=== PATIENT | male | born 1975 | race Caucasian/White ===

== ENCOUNTER → 2016-09-10 | Outpatient (CLI) | payer BC ==
[~2016-09-10] MED LIST: ALTA1CAP2 PO; ASPI81TA13 PO; CLONI1TA PO; FOLI1TAB2 PO; INSUH10VL SC; INSULADS SC; METO-207 PO; METO-346 PO; METO100T PO; METO25TAB PO; NALT50TA2 PO; NEUR300C PO; NOVO70VL SC; OXAZ10CA PO; PANT40TA2 PO; PRAV1TAB39 PO; THIA100TA PO; VITA50TA PO; VITMTA PO
== END ==
LOC: M OUTALCOH 07:56
PROVIDERS: ATTEND Psychiatry & Neurology Psychiatry
DX: F10.20 Alcohol dependence, uncomplicated (principal)

== ENCOUNTER 2017-01-29 07:13 | Inpatient (IN) | payer BC ==
[~2017-01-29] VITALS: Ht 175.3 cm; Wt 85.5 kg
[~2017-01-29 07:13] MED LIST changes: -NALT50TA2 PO; +NALT50TA4 PO
[2017-01-29] MEDS ORDERED: VITA100T60 PO (07:25)
[2017-01-29] MEDS ORDERED: METO100T PO (07:25)
[2017-01-29] MEDS ORDERED: ASPI81TA21 PO (07:25)
[2017-01-29] MEDS ORDERED: CLONI1TA PO (07:25)
[2017-01-29] MEDS ORDERED: ONDANSETRON 4MG/2ML VIAL (J2405) IV ONE (08:00)
[2017-01-29] MEDS ORDERED: MORPHINE 2 MG/ML 1ML SYRINGE IV ONE (08:00)
[2017-01-29 08:09] LABS: BASO % 0.6 % (0.0-1.0); EOS % 0.2 % (0.0-3.0); LARGE UNSTAINED CELL # 0.1 K/mm3 (0.0-0.4); LYMPH # 1.1 K/mm3 (1.5-4.5); LYMPH % 14.2 % (24.0-44.0); MEAN CORPUSCULAR HEMOGLOBIN 31.4 pg (27.0-33.0); MEAN CORPUSCULAR HGB CONC 31.9 g/dl (32.0-36.5); MEAN CORPUSCULAR VOLUME 98.3 fl (80.0-96.0); MONO # 0.5 K/mm3 (0.0-0.8); NEUTROPHILS # 5.1 K/mm3 (1.8-7.7); NEUTROPHILS % 76.1 % (36.0-66.0); PLATELET COUNT, AUTOMATED 219 k/mm3 (150-450); RED CELL DISTRIBUTION WIDTH 13.3 % (11.5-14.5); WHITE BLOOD COUNT 6.7 K/mm3 (4.0-10.0)
[2017-01-29] MEDS ORDERED: NS 500 ML IV ONE (08:15)
[2017-01-29] MEDS ORDERED: MORPHINE 4 MG/ML 1ML SYRINGE IV ONE (08:45)
[2017-01-29] MEDS ORDERED: PANTOPRAZOLE 40MG INJ (PROTONIX) (C9113) IV ONE (08:45)
[2017-01-29 09:03] LABS: ALBUMIN 4.2 GM/DL (3.2-5.2); ALBUMIN/GLOBULIN RATIO 1.14 (1.00-1.93); BILIRUBIN,DIRECT 0.5 MG/DL (0.0-0.2); BILIRUBIN,TOTAL 1.1 MG/DL (0.2-1.0); CALCIUM LEVEL 9.7 MG/DL (8.5-10.1); CREATININE FOR GFR 1.5 MG/DL (0.70-1.30); GLOMERULAR FILTRATION RATE 54.9 (>60); POTASSIUM SERUM 4.2 MEQ/L (3.5-5.1); TOTAL PROTEIN 7.9 GM/DL (6.4-8.2)
[2017-01-29] MEDS ORDERED: INSULIN HUMAN REGULAR 100 UNITS in NS 99 ML IV SCH ×2 (09:58→11:00)
[2017-01-29] MEDS ORDERED: NS 1,000 ML IV ONE ×2 (10:00)
[2017-01-29] MEDS ORDERED: LANTINJ4 SC (10:17)
--- NOTE | 2017-01-29 10:33 | REP ---
Clinical: Abdominal pain. Comparison: 11/27/2015, 10/21/2012. Findings: Lung bases are clear. Diffuse fatty infiltration to the liver is noted. The pancreas demonstrates a 4.5 cm complex cystic lesion in the body which is decreased when compared to prior examinations and may represent chronic pseudocyst. No surrounding inflammatory stranding or adenopathy is identified. Spleen, gallbladder, bilateral adrenal glands and kidneys are normal. No evidence for nephroureterolithiasis or hydroureteronephrosis. The enteric system is without obstruction or acute inflammatory process and a normal terminal ileum and appendix are identified in the right lower quadrant. The patient is status post hysterectomy. Pelvis demonstrates normal bladder. No free fluid/ascites. No free air. No adenopathy. Abdominal aorta without aneurysm. Musculoskeletal structures demonstrate age-related changes without focal osseous abnormality. Impression: 1. Diffuse fatty infiltration to the liver. 2. 4.5 cm complex cystic lesion in the body of the pancreas is slowly decreasing in size when compared to prior examinations dated 2012 and 2015. Finding likely represents a slowly progressing pseudocyst. Regular followed by ultrasound may be warranted. Signed by Hiram Lyons MD 01/29/2017 10:24 A
[2017-01-29 10:44] LABS: ABG BASE EXCESS -20.5 (-2.0-2.0); ABG HCO3 4.2 MEQ/L (22.0-26.0); ABG PARTIAL PRESSURE O2 171.7 mmHg (75.0-100.0); ABG STANDARD HCO3 10.3 MEQ/L (22.0-26.0); ABG TOTAL CO2 4.5 MEQ/L (22.0-29.0)
[2017-01-29 10:45] LABS: ABG pH (ARTERIAL) 7.209 UNITS (7.350-7.450)
[2017-01-29 10:46] LABS: ABG PARTIAL PRESSURE CO2 10.8 mmHg (35.0-45.0)
[2017-01-29] MEDS: INSULIN HUMAN REGULAR 100 UNITS in NS 99 ML IV SCH ×2 (11:03→14:13)
[2017-01-29] MEDS ORDERED: NS 1,000 ML IV SCH (11:39)
[2017-01-29] MEDS ORDERED: LORazepam 2 MG/ML VIAL (J2060) IV PRN (11:45)
[2017-01-29] MEDS: INSULIN IV RATE CHANGE DOCUMENTATION ML/HR XX SCH ×5 (12:05→21:46)
--- NOTE | 2017-01-29 12:18 | HPE ---
DATE OF ADMISSION: 01/29/2017 PRIMARY CARE PROVIDER: Dr. Reyes in [place] OVEN HEATER: In [place] MEDICAL CASH POSTER: Dr. Justa Maurer CHIEF COMPLAINT: Abdominal pain, nausea, vomiting. HISTORY OF PRESENT ILLNESS: 41-year-old gentleman with known history of type 1 diabetes, previous history of pancreatitis and pancreatic pseudocyst who presents to the emergency department after having 24-48 hours of increasing nausea, vomiting, abdominal pain and distention. He states that he does drink quite a bit of alcohol. He switched from drinking beer to more liquor, which he was unable to quantify for me, but he states that he does realize that he needs to stop drinking. He has had issues with alcohol withdrawal in the past and did question if we would be able to treat him for this as well. He was seen through the emergency department and noted to have some acute kidney and anion gap metabolic acidosis likely related to diabetic ketoacidosis (DKA) with hyperglycemia. He has a slightly low sodium; however, this is most likely related to his degree of hyperglycemia. No coma was related. CT scan of the abdomen and pelvis was negative for pancreatitis as well as a normal lipase. THE hospitalist was called and requested see the patient for admission and the patient has already been started on insulin drip. PAST MEDICAL HISTORY: 1. Type 1 diabetes. 2. Dyslipidemia. 3. Hypertension. 4. Alcoholism 5. Alcohol related pancreatitis. PAST SURGICAL HISTORY: 1. Orthopedic surgery. 2. Vasectomy in the past. FAMILY HISTORY: Noncontributory. SOCIAL HISTORY: The patient drinks quite a bit of hard liquor, was able to unable to quantify for me. He does smoke about a pack a day. He lives at home with his . No recent travel. No sick contacts. ALLERGIES: No known drug allergies. CURRENT MEDICATIONS (home medications): - NovoLog insulin - Lantus, will check with his pharmacy regarding his current dose - pantoprazole 40 mg daily - folic acid 1 mg daily - clonidine 0.1 mg for blood pressure - Ramipril 2.5 mg daily - metoprolol 100 mg daily - multivitamin once daily - pravastatin 20 mg daily - naltrexone 50 mg daily - thiamine 100 mg daily - aspirin 81 mg daily REVIEW OF SYSTEMS: Constitutional: He has had some nausea, vomiting, abdominal pain and decreased appetite. HEENT: Denies headache, lightheaded, dizziness, blurry vision, double vision, or tinnitus. No difficulty with speech or swallow. Pulmonary: Denies productive sputum, cough or hemoptysis. Cardiovascular: He denies chest pain, palpitations, paroxysmal nocturnal dyspnea (PND), orthopnea or lower extremity edema. Gastrointestinal (GI): Positive for nausea and vomiting. He denies any diarrhea. No hematochezia. No melena. He does have a history of pseudocyst and recurrent history of pancreatitis, likely related to alcoholism. Musculoskeletal: He denies bone loss or joint pain, swelling or erythema. Neurologic: No paresthesias or paralysis. No loss of consciousness. Endocrine: Positive for diabetes. Negative for thyroid disorder. Lymphatics: No lumps, bumps or swelling in neck, axilla or groin. No night sweats. No weight loss. Hematology: Negative for bleeding or bruising disorder. No prior history of venous thromboembolism. Oncology: Negative for cancer. Psychiatric: No history of depression. No suicidal ideation. No audiovisual hallucinations. Skin: No bleeding or bruising. No skin lesions. Substances: He does have a history of tobacco use and alcoholism as indicated above. He denies any illicit substances. 10-point review of systems complete, pertinent positives are listed. PHYSICAL EXAMINATION: Temperature is 98.8, pulse 110 and regular, respiratory rate is 18 nonlabored, blood pressure (BP) is 142/83, SPO2 is 99% on room air. General: The patient appears to be in no acute distress. He is alert and oriented. HEENT: Unremarkable. Lungs: Clear. Heart: Regular rate and rhythm. Abdomen: Diffuse abdominal tenderness. No rebound. Positive bowel sounds which were normoactive. Extremities: No edema. No calf tenderness. LABORATORY DATA: White count 6.7, hemoglobin is 16.9 and platelets 219,000. Sodium 132, potassium 4.2, chloride 90, bicarb 7, anion gap 35, BUN 18, creatinine 1.50, glucose is 385, total bilirubin 1.1, direct bilirubin is 0.5, AST 91, ALT 123, alkaline phosphatase 186, albumin 4.2. IMPRESSION: Mr. Hess is a 41-year-old gentleman who presents to the emergency department with abdominal pain, elevated blood glucose and appears to be in diabetic ketoacidosis. He does have an underlying history of pancreatitis and alcohol abuse as well as tobacco use. He will need to be admitted due to his anion gap metabolic acidosis and started on fluid resuscitation as well as insulin drip. PROBLEM LIST: 1. Diabetic ketoacidosis. 2. Type 1 diabetes. 3. Anion gap metabolic acidosis. 4. Mild acute kidney injury. 5. Hyponatremia related to elevated blood glucose. 6. Alcohol abuse. 7. Tobacco use. 8. History of pancreatic pseudocyst which he follows in [place] for. PLAN: The patient is admitted to the intensive care unit (ICU) on insulin drip and fluid resuscitation as indicated above. He is nothing by mouth (n.p.o.) currently. He is okay for ice chips and sips of water. Will progress his diet as tolerated. I did hold his pravastatin. Morphine for pain. Resume his Lantus once his anion gap is closed. Will hold his Ramipril for right now and avoid nephrotoxic drugs until his renal function is improved. This is most likely related to his level of dehydration. DISPOSITION: Will see how he does overnight. Anticipate that he will be here likely over two midnights and he meets inpatient criteria.
[2017-01-29] MEDS ORDERED: MULTIVITAMIN -ADULT INJECTION 10 ML, THIAMINE INJection 100 MG, FOLIC ACID 1 MG in NS 1... IV ONE (12:30)
[2017-01-29] MEDS: MORPHINE 4 MG/ML 1ML SYRINGE IV PRN ×3 (12:36→20:17)
[2017-01-29 12:59] LABS: ANION GAP 27 MEQ/L (8-16); BLOOD UREA NITROGEN 18 MG/DL (7-18); CARBON DIOXIDE LEVEL 7 MEQ/L (21-32); CHLORIDE LEVEL 103 MEQ/L (98-107); CREATININE FOR GFR 1.38 MG/DL (0.70-1.30); GLOMERULAR FILTRATION RATE > 60.0 (>60); GLUCOSE, FASTING 266 MG/DL (70-105); MAGNESIUM LEVEL 2.2 MG/DL (1.8-2.4); POTASSIUM SERUM 3.9 MEQ/L (3.5-5.1); SODIUM LEVEL 137 MEQ/L (136-145)
[2017-01-29 13:14] LABS: CALCIUM LEVEL 8.2 MG/DL (8.5-10.1)
[2017-01-29 14:00] VITALS: BP 121/59
[2017-01-29] MEDS: NICOTINE 14 MG/24 HR TRANSDERMAL TD SCH (14:11)
[2017-01-29] MEDS: cloNIDine 0.1 MG TAB PO SCH (14:11)
[2017-01-29] MEDS: OXAZEPAM 15 MG CAP PO SCH ×3 (14:12→23:58)
[2017-01-29] MEDS: METOPROLOL TART 50 MG TAB PO SCH ×2 (14:12→20:16)
[2017-01-29] MEDS: ASPIRIN 81 MG ENTERIC TAB PO SCH (14:12)
[2017-01-29 14:35] LABS: ANION GAP 21 MEQ/L (8-16); BLOOD UREA NITROGEN 18 MG/DL (7-18); CALCIUM LEVEL 8.5 MG/DL (8.5-10.1); CARBON DIOXIDE LEVEL 13 MEQ/L (21-32); CHLORIDE LEVEL 104 MEQ/L (98-107); CREATININE FOR GFR 1.37 MG/DL (0.70-1.30); GLOMERULAR FILTRATION RATE > 60.0 (>60); GLUCOSE, FASTING 200 MG/DL (70-105); POTASSIUM SERUM 4.1 MEQ/L (3.5-5.1); SODIUM LEVEL 138 MEQ/L (136-145)
[2017-01-29] MEDS ORDERED: D5W/0.9% SODIUM CHLORIDE 1,000 ML IV SCH (15:00)
[2017-01-29 16:22] LABS: ANION GAP 20 MEQ/L (8-16); BLOOD UREA NITROGEN 20 MG/DL (7-18); CARBON DIOXIDE LEVEL 14 MEQ/L (21-32); CHLORIDE LEVEL 104 MEQ/L (98-107); CREATININE FOR GFR 1.36 MG/DL (0.70-1.30); GLOMERULAR FILTRATION RATE > 60.0 (>60); GLUCOSE, FASTING 199 MG/DL (70-105); SODIUM LEVEL 138 MEQ/L (136-145)
[2017-01-29 18:16] LABS: ANION GAP 14 MEQ/L (8-16); BLOOD UREA NITROGEN 18 MG/DL (7-18); CALCIUM LEVEL 8.2 MG/DL (8.5-10.1); CARBON DIOXIDE LEVEL 19 MEQ/L (21-32); CHLORIDE LEVEL 104 MEQ/L (98-107); CREATININE FOR GFR 1.38 MG/DL (0.70-1.30); GLOMERULAR FILTRATION RATE > 60.0 (>60); GLUCOSE, FASTING 209 MG/DL (70-105); POTASSIUM SERUM 4.2 MEQ/L (3.5-5.1); SODIUM LEVEL 137 MEQ/L (136-145)
[2017-01-29 19:33] LABS: CALCIUM LEVEL 7.6 MG/DL (8.5-10.1); CREATININE FOR GFR 1.39 MG/DL (0.70-1.30); GLOMERULAR FILTRATION RATE 59.9 (>60); POTASSIUM SERUM 4.2 MEQ/L (3.5-5.1)
[2017-01-29 20:00] VITALS: BP 101/63
[2017-01-29] MEDS ORDERED: LEVEMIR (INSULIN DETEMIR) 1 UNITS/0.01ML SC ONE (20:00)
[2017-01-29] MEDS: NS 1,000 ML IV SCH (20:16)
[2017-01-29 22:00] VITALS: BP 116/68
[2017-01-29 22:27] LABS: CALCIUM LEVEL 7.6 MG/DL (8.5-10.1); CREATININE FOR GFR 1.39 MG/DL (0.70-1.30); GLOMERULAR FILTRATION RATE 59.9 (>60)
[2017-01-29] MEDS ORDERED: DEXTROSE 50% 50 ML SYRINGE IV PRN (23:15)
[2017-01-29] MEDS ORDERED: GLUCOSE 4 GM CHEW TABLET PO PRN (23:15)
[2017-01-29] MEDS ORDERED: GLUCAGON FOR INJ 1 MG VIAL (J1610) SC PRN (23:15)
[2017-01-30] VITALS: BP 99/61
[2017-01-30 02:00] VITALS: BP 107/69
[2017-01-30 04:00] VITALS: BP 127/67
[2017-01-30 04:57] LABS: MEAN CORPUSCULAR HEMOGLOBIN 30.6 pg (27.0-33.0); MEAN CORPUSCULAR HGB CONC 31.7 g/dl (32.0-36.5); MEAN CORPUSCULAR VOLUME 96.5 fl (80.0-96.0); RED CELL DISTRIBUTION WIDTH 13.6 % (11.5-14.5); WHITE BLOOD COUNT 4.3 K/mm3 (4.0-10.0)
[2017-01-30 05:14] LABS: ANION GAP 10 MEQ/L (8-16); BLOOD UREA NITROGEN 18 MG/DL (7-18); CALCIUM LEVEL 7.7 MG/DL (8.5-10.1); CARBON DIOXIDE LEVEL 20 MEQ/L (21-32); CHLORIDE LEVEL 108 MEQ/L (98-107); CREATININE FOR GFR 1.07 MG/DL (0.70-1.30); GLOMERULAR FILTRATION RATE > 60.0 (>60); GLUCOSE, FASTING 236 MG/DL (70-105); POTASSIUM SERUM 3.7 MEQ/L (3.5-5.1); SODIUM LEVEL 138 MEQ/L (136-145)
[2017-01-30] MEDS: OXAZEPAM 15 MG CAP PO SCH (05:19)
[2017-01-30 06:00] VITALS: BP 105/59
[2017-01-30] MEDS ORDERED: HumaLOG INSULIN (NovoLOG) PER UNIT SC SCH ×2 (07:30→21:00)
[2017-01-30] MEDS: NS 1,000 ML IV SCH (07:45)
[2017-01-30] MEDS ORDERED: NICO14PA TD (08:22)
[2017-01-30] MEDS ORDERED: OXAZ15CA PO (08:28)
[2017-01-30 09:00] VITALS: BP_SYST 106; BP_SYST 160; BP_DIAS 65
[2017-01-30] MEDS ORDERED: PANTOPRAZOLE 40MG TAB (PROTONIX) PO SCH (09:00)
[2017-01-30] MEDS: cloNIDine 0.1 MG TAB PO SCH (09:00)
[2017-01-30] MEDS ORDERED: MULTIVITAMINS/MINERALS THERAP 1 TAB PO SCH (09:00)
[2017-01-30] MEDS ORDERED: THIAMINE 100 MG TAB PO SCH (09:00)
[2017-01-30] MEDS ORDERED: FOLIC ACID 1 MG TAB PO SCH (09:00)
[2017-01-30] MEDS ORDERED: ENOXAPARIN 40 MG/0.4 ML SYRINGE (J1650) SC SCH (09:00)
[2017-01-30] MEDS: NICOTINE 14 MG/24 HR TRANSDERMAL TD SCH (09:00)
[2017-01-30] MEDS: METOPROLOL TART 50 MG TAB PO SCH (09:00)
[2017-01-30] MEDS: ASPIRIN 81 MG ENTERIC TAB PO SCH (09:02)
--- NOTE | 2017-01-30 14:37 | DSES ---
DATE OF ADMISSION: 01/30/2016 DATE OF DISCHARGE: 01/30/2017 DISCHARGE DIAGNOSES: 1. Diabetic ketoacidosis (DKA). 2. Acute abdominal pain related to DKA. 3. Alcohol abuse. 4. Type 1 diabetes. 5. Hypertension. 6. Prior history of alcohol-related pancreatitis time, not seen on this admission. 7. Tobacco use. Encourage smoking cessation and counseling provided. BRIEF HOSPITAL COURSE: Mr. Hess is a 41-year-old gentleman who presents to the emergency department with abdominal pain, nausea, vomiting for approximately 24-48 hours yesterday. He is having difficulty maintaining good oral intake, was noted to have an elevated anion gap and started on insulin drip. CT scan was unremarkable for pancreatitis. He does have a known history of pseudocyst, which he follows in [place] for. Otherwise no acute findings. He is admitted to the ICU, started on insulin drip; did progress well. Was able to tolerate meals and he had been weaned off of the insulin drip through the night last night. Again, tolerating meals. Fingersticks are much improved. He did not have any withdrawal symptoms. However, he will need to be discharged on appropriate medications, some short-term Serax and followup with his primary care provider as soon as possible this coming week. Further information regarding intake, physical, labs, diagnostics please refer to the H P. PHYSICAL EXAMINATION: Temperature is 94, pulse 77, respiratory rate 20, BP 160/65, SPO2 is 95% on room air. General: The patient appears to be in no acute distress. Is alert, oriented. HEENT: Unremarkable. Lungs: Clear. Heart: Regular rhythm. Normal S1-S2. Abdomen: Soft, nontender. Positive bowel sounds. No masses or rebound. Extremities: No edema. No calf tenderness. LABORATORY DATA: White count is 4.3, hemoglobin 13, platelets 152,000. Sodium 138, potassium 3.7, chloride 108, bicarb 20, anion gap 10, BUN is 10, creatinine 1.5 DISCHARGE CONDITION: Good. DISPOSITION: Discharge to home on appropriate medications as outlined above and appropriate followup. DISCHARGE MEDICATIONS: - Nicoderm patch, 14 mg patch daily - Serax 15 mg every 6 hours as needed #20, maximum daily dose is 4 and encouraged to abstain from alcohol - aspirin 81 mg daily - Catapres 0.1 mg daily - folic acid 1 mg daily - NovoLog sliding scale as directed - Garethtus KennedyoStar 52 units at bedtime - metoprolol tartrate 50 mg twice a day - multivitamin daily - pantoprazole 40 mg daily - pravastatin 20 mg daily - Ramipril 2.5 mg daily - thiamine 100 mg daily DISCHARGE INSTRUCTIONS: Discharged to home. Followup with Dr. Reyes's office next week. Activity as tolerated. Consistent carbohydrate diet. Avoid alcohol, avoid tobacco and should seek medical attention if condition worsens. He voices understanding. Discharge took 35 minutes.
== END 2017-01-30 09:50 | disposition home or self-care (01) | DRG 420 ==
LOC: M ED 09:10 → M ED INP 11:39 → M ICU 13:50
PROVIDERS: ADMIT Hospitalist; ATTEND Hospitalist
DX: E10.10 Type 1 diabetes mellitus with ketoacidosis without coma (principal); N17.9 Acute kidney failure, unspecified; K86.3 Pseudocyst of pancreas; E78.5 Hyperlipidemia, unspecified; E87.1 Hypo-osmolality and hyponatremia; I10 Essential (primary) hypertension; F10.20 Alcohol dependence, uncomplicated; F17.210 Nicotine dependence, cigarettes, uncomplicated; Z79.4 Long term (current) use of insulin; Z79.82 Long term (current) use of aspirin; Z79.899 Other long term (current) drug therapy

== ENCOUNTER 2017-02-22 15:49 | Inpatient (IN) | payer BC ==
[~2017-02-22] VITALS: Ht 175.3 cm; Wt 85.3 kg
[~2017-02-22 15:49] MED LIST changes: +ASPI81TA21 PO; +LANTINJ4 SC; +NICO14PA TD; +OXAZ15CA PO; +VITA100T60 PO
[2017-02-22] MEDS ORDERED: NS 1,000 ML IV ONE (17:30)
[2017-02-22] MEDS ORDERED: ONDANSETRON 4MG/2ML VIAL (J2405) IV ONE (17:30)
[2017-02-22 17:52] LABS: BASO % 0.6 % (0.0-1.0); EOS % 0.1 % (0.0-3.0); LARGE UNSTAINED CELL # 0.3 K/mm3 (0.0-0.4); LARGE UNSTAINED CELL % 3.1 % (0.0-4.0); LYMPH # 1.5 K/mm3 (1.5-4.5); MEAN CORPUSCULAR HEMOGLOBIN 31.9 pg (27.0-33.0); MEAN CORPUSCULAR HGB CONC 32.6 g/dl (32.0-36.5); MONO # 0.7 K/mm3 (0.0-0.8); MONO % 8.1 % (0.0-5.0); NEUTROPHILS # 5.9 K/mm3 (1.8-7.7); NEUTROPHILS % 73.1 % (36.0-66.0); PLATELET COUNT, AUTOMATED 160 k/mm3 (150-450); WHITE BLOOD COUNT 8.1 K/mm3 (4.0-10.0)
[2017-02-22 17:53] LABS: INR 0.98
[2017-02-22 17:54] LABS: ABG BASE EXCESS -20.8 (-2.0-2.0); ABG HCO3 3.8 MEQ/L (22.0-26.0); ABG PARTIAL PRESSURE O2 144.4 mmHg (75.0-100.0); ABG STANDARD HCO3 10.2 MEQ/L (22.0-26.0); ABG TOTAL CO2 4.1 MEQ/L (22.0-29.0)
[2017-02-22 18:02] LABS: ABG PARTIAL PRESSURE CO2 9.9 mmHg (35.0-45.0); ABG pH (ARTERIAL) 7.204 UNITS (7.350-7.450)
[2017-02-22 18:03] LABS: ALBUMIN/GLOBULIN RATIO 0.93 (1.00-1.93); ALKALINE PHOSPHATASE 192 U/L (45-117); ALT/SGPT 79 U/L (12-78); ANION GAP 29 MEQ/L (8-16); AST/SGOT 90 U/L (15-37); BILIRUBIN,DIRECT 0.3 MG/DL (0.0-0.2); BILIRUBIN,TOTAL 1.1 MG/DL (0.2-1.0); BLOOD UREA NITROGEN 14 MG/DL (7-18); CALCIUM LEVEL 9.2 MG/DL (8.5-10.1); CARBON DIOXIDE LEVEL 7 MEQ/L (21-32); CHLORIDE LEVEL 89 MEQ/L (98-107); GLOMERULAR FILTRATION RATE 54.9 (>60); GLUCOSE, FASTING 326 MG/DL (70-105); SODIUM LEVEL 125 MEQ/L (136-145); TOTAL PROTEIN 8.3 GM/DL (6.4-8.2)
[2017-02-22 18:28] LABS: METHADONE URINE NEGATIVE (NEGATIVE)
[2017-02-22] MEDS ORDERED: HumaLOG INSULIN (NovoLOG) PER UNIT IV STA (18:34)
[2017-02-22] MEDS ORDERED: MULTIVITAMIN -ADULT INJECTION 10 ML, THIAMINE INJection 100 MG, FOLIC ACID 1 MG in NS 1... IV ONE (18:45)
[2017-02-22] MEDS ORDERED: INSULIN IV RATE CHANGE DOCUMENTATION ML/HR XX SCH ×2 (18:45→20:15)
[2017-02-22] MEDS ORDERED: MORPHINE 2 MG/ML 1ML SYRINGE IV ONE (18:45)
[2017-02-22] MEDS ORDERED: OXAZEPAM 15 MG CAP PO ONE (18:45)
[2017-02-22] MEDS ORDERED: KCL 40MEQ in NS 1000ML 1,000 ML IV SCH (19:00)
[2017-02-22] MEDS ORDERED: INSULIN HUMAN REGULAR 100 UNITS in NS 99 ML IV SCH ×3 (19:00→21:19)
[2017-02-22] MEDS ORDERED: OXAZ15CA PO (19:01)
--- NOTE | 2017-02-22 20:00 | REPUSA ---
CLINICAL HISTORY: Abdominal pain N/V. TECHNIQUE: Multiple axial CT images were obtained through the abdomen and pelvis without administrat ion of oral or IV contrast material. COMPARISON: Made with the prior study dated 01/29/2017. Overall there is no significant interval ch jailene. COMMENTS: Liver is enlarged with diffuse hepatic hypoattenuation compatible with fatty infiltration. There is no intra or extrahepatic biliary ductal dilatation. The spleen is normal. The gallbladder is within normal limits. There is evidence of a 4 x 3 cm low density lesion in the region of pancreatic body. Differential includes pancreatic pseudocyst as well as cystic neoplasm. The rest of the pancreas a ppears atrophic. Several calcifications are noted in the uncinate process of the pancreas. Small hi atal hernia is seen. There is no evidence of adrenal mass. The kidneys are normal in size, shape and configuration. No renal or ureteral calculi are identified . There is no hydroureter or hydronephrosis. There is no evidence for appendicitis. There is no bowel wall thickening. No evidence for small or large bowel obstruction. There is no evidence of abdominal ascites or lymphadenopathy. There is no evidence of intrinsic or extrinsic bladder mass. There is no pelvic ascites or lymphaden opathy. Prostate gland is unremarkable. Images of the lung bases show no evidence of pleural or parenchymal mass. There are no pleural effus ions. The bony structures are free of lytic or blastic lesions. IMPRESSION: 1. Fatty liver. 2. 4 x 3 cm low density lesion in the region of pancreatic body. Differential includes pancreatic p seudocyst as well as cystic neoplasm. The rest of the pancreas appears atrophic. Several calcificat ions are noted in the uncinate process of the pancreas. 3. Small hiatal hernia is seen. 4. No significant interval change. Thank you for your kind referral of this patient. We appreciate the opportunity to participate in thi s patient's care.
[2017-02-22] MEDS ORDERED: NS 1,000 ML IV SCH (20:05)
--- NOTE | 2017-02-22 20:39 | HPEPDOC ---
General Date of Admission 02/22/17 Other Providers PCP: Dr. Reyes Attending Physician: MARSHA HANSEN MD Chief Complaint The patient is a 41-year-old male admitted with a reason for visit of Naus/Vom. History of Present Illness 41-year-old male with past medical history of type 1 diabetes mellitus, dyslipidemia, hypertension, alcohol use presents to the ER with chief complaint of elevated blood sugars and abdominal pain over the last 48 hours. Of note, the patient was admitted for similar symptoms here [facility] just last month. The patient states that he has been feeling sick with complaints of nausea and vomiting during this time. Of note, the patient states that his last alcoholic drink was Thursday night into Thursday morning. Since then, the patient states that he has tried to stop drinking and has been taking Serax. However, the patient states that he has not been able to keep food down and his blood sugar level has been elevated in the 400 to 500s. He states that he has been adherent to his insulin regimen therapy which includes an average of 10 units of NovoLog 3 times a day with meals and 52 units of Lantus at night. He denies any complaints of fevers, chills, chest pain, palpitations, cough, or any sick contacts, recent travel, or diarrhea. In the ER, patient was noted to be in diabetic ketoacidosis. The patient will be admitted under the hospitalist service for further evaluation and management. Home Medications Scheduled Aspirin (Aspir-Low) 81 Mg Tab, 81 MG PO DAILY, (Reported) Clonidine Hcl (Catapres) 0.1 Mg Tab, 0.1 MG PO DAILY, (Reported) Folic Acid (Folic Acid) 1 Mg Tab, 1 MG PO DAILY, (Reported) Insulin Aspart (Novolog) 100 U/Ml Inj, 1 DOSE SC AC, (Reported) PER SLIDING SCALE Insulin Glargine (Lantus Solostar) 100 Unit/Ml Inj, 52 UNITS SC QHS, (Reported) Metoprolol Tartrate (Metoprolol Tartrate) 100 Mg Tab, 50 MG PO BID, (Reported) Multivitamins *[facility] STOCKED* (Thera M Plus *[facility] STOCKED*) 1 Tab Tab, 1 TAB PO DAILY, (Reported) Pantoprazole Sodium (Pantoprazole Sodium) 40 Mg Tab, 40 MG PO DAILY, (Reported) Pravastatin Sodium (Pravachol) 20 Mg Tab, 20 MG PO DAILY, (Reported) Ramipril (Altace) 2.5 Mg Cap, 2.5 MG PO DAILY, (Reported) Thiamine HCl (Vitamin B1) 100 Mg Tab, 100 MG PO DAILY, (Reported) Scheduled PRN Oxazepam (Oxazepam) 15 Mg Cap, 15 MG PO Q6H PRN for ANXIETY/AGITATION, (Reported ) Allergies Coded Allergies: No Known Drug Allergy (Verified Allergy, Unknown, 12/09/12) Past Medical History Medical History As noted in HPI. Surgical History Vasectomy in the past Family History Significant Family History: No pertinent family hx Social History * Smoker: greater than 1 pack/day Alcohol: other (patient states that he drinks about a pint of hard liquor daily for the past 20+ years, however has not drank an alcoholic beverage in the last 36-48 hours.) Drugs: denies Review of Symptoms Other systems 10 point review systems negative unless otherwise specified in HPI. Physical Examination General Exam: Positive: Alert, Cooperative, No Acute Distress ENT Exam: Positive: Atraumatic, Other ENT (dry mucous membranes) Neck Exam: Negative: JVD Chest Exam: Positive: Clear to auscultation, Normal air movement Heart Exam: Positive: Tachycardic, Normal S1, Normal S2 Telemetry: Positive: Sinus Abdomen Exam: Positive: Soft, Negative: Tenderness Extremity Exam: Negative: Tenderness, Swelling Psych Exam: Positive: Oriented x 3 Vital Signs Vital Signs Date Time Temp Pulse Resp B/P (MAP) Pulse Ox O2 Delivery O2 Flow Rate FiO2 02/22/17 19:54 122 169/99 (122) 98 02/22/17 19:46 18 02/22/17 15:50 98.7 Room Air Laboratory Data Labs 24H Laboratory Tests 2 02/22/17 16:25: White Blood Count 8.1, Red Blood Count 5.18, Hemoglobin 16.5, Hematocrit 50.7, Mean Corpuscular Volume 98.0H, Mean Corpuscular Hemoglobin 31.9, Mean Corpuscular Hemoglobin Concent 32.6, Red Cell Distribution Width 14.0, Platelet Count 160, Neutrophils (%) (Auto) 73.1H, Lymphocytes (%) (Auto) 15.0L, Monocytes (%) (Auto) 8.1H, Eosinophils (%) (Auto) 0.1, Basophils (%) (Auto) 0.6 , Neutrophils # (Auto) 5.9, Lymphocytes # (Auto) 1.5, Monocytes # (Auto) 0.7, Eosinophils # (Auto) 0.0, Basophils # (Auto) 0.0, Large Unclassified Cells % 3.1 , Large Unclassified Cells # 0.3, Prothrombin Time 13.1, Prothromb Time International Ratio 0.98, Activated Partial Thromboplast Time 25.5L, Anion Gap 29H, Glomerular Filtration Rate 54.9L, Estimated Mean Plasma Glucose 260H, Hemoglobin A1c 10.7H, Lactic Acid Level 1.6, Calcium Level 9.2, Aspartate Amino Transf (AST/SGOT) 90H, Alanine Aminotransferase (ALT/SGPT) 79H, Alkaline Phosphatase 192H, Total Bilirubin 1.1H, Direct Bilirubin 0.3H, Total Creatine Kinase 74, Creatine Kinase MB 1.7, Creatine Kinase MB Relative Index 2.29, Troponin I < 0.02, Total Protein 8.3H, Albumin 4.0, Albumin/Globulin Ratio 0.93L , Lipase 73, Ethyl Alcohol Level < 0.003 02/22/17 17:44: Blood Gas Bicarbonate Standard 10.2L, Arterial Blood pH 7.204*L, Arterial Blood Partial Pressure CO2 9.9*L, Arterial Blood Partial Pressure O2 144.4H, Arterial Blood Total CO2 4.1L, Arterial Blood HCO3 3.8L, Arterial Blood Base Excess - 20.8L, Arterial Blood Oxygen Saturation 98.7 02/22/17 17:50: Urine Appearance CLEAR, Urine Color YELLOW, Urine pH 5.0, Urine Specific [place] 1.020, Urine Protein 2+H, Urine Glucose (UA) 3+H, Urine Ketones 2+H, Urine Urobilinogen 0.2, Urine Bilirubin NEGATIVE, Urine Leukocyte Esterase NEGATIVE, Urine Blood 1+H, Urine Nitrite NEGATIVE, Urine WBC (Auto) 1, Urine RBC (Auto) 3, Urine Hyaline Casts (Auto) 5, Urine Bacteria (Auto) NEGATIVE, Urine Squamous Epithelial Cells 0, Urine Mucus (Auto) SMALL, Urine Sperm (Auto) , Urine Amphetamines Screen NEGATIVE, Urine Benzodiazepines Screen NEGATIVE, Urine Opiates Screen NEGATIVE, Urine Methadone Screen NEGATIVE, Urine Barbiturates Screen NEGATIVE, Urine Phencyclidine Screen NEGATIVE, Urine Cocaine Metabolite Screen NEGATIVE, Urine Cannabinoids Screen NEGATIVE CBC/BMP Laboratory Tests 02/22/17 16:25 Red Blood Count 5.18, Mean Corpuscular Volume 98.0 H, Mean Corpuscular Hemoglobin 31.9, Mean Corpuscular Hemoglobin Concent 32.6, Red Cell Distribution Width 14.0, Neutrophils (%) (Auto) 73.1 H, Lymphocytes (%) (Auto) 15.0 L, Monocytes (%) (Auto) 8.1 H, Eosinophils (%) (Auto) 0.1, Basophils (%) ( Auto) 0.6, Neutrophils # (Auto) 5.9, Lymphocytes # (Auto) 1.5, Monocytes # (Auto ) 0.7, Eosinophils # (Auto) 0.0, Basophils # (Auto) 0.0 Microbiology Microbiology 02/22/17 Blood Culture, Received Pending Plan / VTE VTE Prophylaxis Ordered?: Yes Plan Plan Diabetic ketoacidosis Possibly precipitated by alcohol withdrawal symptoms over the last 36-48 hours Patient states that he has been adherent to his insulin therapy Initial anion gap noted to be 29, initial blood glucose level 326 We will start the patient on an insulin drip as per ICU protocol IV fluid hydration Every hour fingersticks Every 2 hour BMPs We will continue to transition the patient back to subcutaneous insulin once his anion gap closes, and he is able to tolerate a by mouth diet Acute kidney injury 2/2 intravascular volume due to above Serum creatinine noted to be 1.5 (baseline creatinine closer to 1.0) Hyponatremia Serum sodium level initially 125 As is likely a combination of pseudohyponatremia from hyperglycemia, and hypovolemia secondary to intravascular volume depletion We will continue to hydrate the patient IV fluids Serial BMPs Anion gap Metabolic acidosis secondary to underlying DKA ABG notable for a pH of 7.20 We will continue to follow the DKA protocol in an effort to metabolically stabilize the patient We will repeat an ABG Alcohol abuse Patient states that his last alcoholic beverage was 36-48 hours ago Patient counseled on the hazards of alcohol abuse We will continue the patient on Serax for now with withdrawal precautions Hypertension Will withhold the patient's antihypertensives at this time Dyslipidemia The patient may continue his statin once he is transitioned to a by mouth diet History of pancreatic pseudocyst Follows up in [place] for monitoring of this GERD Continue IV PPI DVT prophylaxis Heparin subcutaneous The patient will be admitted under the service of Dr. Hansen, who will begin to follow the patient on 02/23/17 at 7 AM. MALCOLM BOUDREAUX MD Feb 22, 2017 20:39
[2017-02-22 21:26] LABS: CALCIUM LEVEL 8.4 MG/DL (8.5-10.1); CREATININE FOR GFR 1.46 MG/DL (0.70-1.30); GLOMERULAR FILTRATION RATE 56.6 (>60); POTASSIUM SERUM 3.8 MEQ/L (3.5-5.1)
[2017-02-22] MEDS: POTASSIUM CHLORIDE 10 MEQ SR TABLET PO ONE ×2 (22:00→22:58)
[2017-02-22 22:30] VITALS: BP 147/84
[2017-02-22] MEDS: MORPHINE 2 MG/ML 1ML SYRINGE IV PRN (22:56)
[2017-02-22 22:57] LABS: ANION GAP 25 MEQ/L (8-16); BLOOD UREA NITROGEN 12 MG/DL (7-18); CARBON DIOXIDE LEVEL 8 MEQ/L (21-32); CHLORIDE LEVEL 100 MEQ/L (98-107); CREATININE FOR GFR 1.29 MG/DL (0.70-1.30); GLOMERULAR FILTRATION RATE > 60.0 (>60); GLUCOSE, FASTING 195 MG/DL (70-105); POTASSIUM SERUM 4.3 MEQ/L (3.5-5.1); SODIUM LEVEL 133 MEQ/L (136-145)
[2017-02-22] MEDS: OXAZEPAM 15 MG CAP PO SCH (22:57)
[2017-02-22 22:58] VITALS: BP 152/96
[2017-02-22] MEDS: HEPARIN SOD (PORCINE) 5000 UNITS/ML VIAL SC SCH (22:59)
[2017-02-22] MEDS: D5W/0.45% SODIUM CHLORIDE 1,000 ML IV SCH (23:07)
[2017-02-22] MEDS: INSULIN IV RATE CHANGE DOCUMENTATION ML/HR XX SCH (23:23)
[2017-02-22] MEDS ORDERED: PANTOPRAZOLE 40MG INJ (PROTONIX) (C9113) IV ONE (23:30)
[2017-02-22] MEDS ORDERED: ONDANSETRON 4MG/2ML VIAL (J2405) IV PRN (23:30)
[2017-02-22] MEDS: CALCIUM CARBONATE 500 MG CHEW U/D PO PRN (23:54)
[2017-02-22] MEDS: NICOTINE 21MG/24HR 1 EA TRANSDERMAL TD SCH (23:56)
[2017-02-23] VITALS (11 sets, daily range): BP systolic 111–151; BP diastolic 67–94
[2017-02-23 00:49] LABS: ANION GAP 21 MEQ/L (8-16); BLOOD UREA NITROGEN 12 MG/DL (7-18); CALCIUM LEVEL 8.3 MG/DL (8.5-10.1); CARBON DIOXIDE LEVEL 11 MEQ/L (21-32); CHLORIDE LEVEL 103 MEQ/L (98-107); CREATININE FOR GFR 1.18 MG/DL (0.70-1.30); GLOMERULAR FILTRATION RATE > 60.0 (>60); GLUCOSE, FASTING 196 MG/DL (70-105); POTASSIUM SERUM 4.2 MEQ/L (3.5-5.1); SODIUM LEVEL 135 MEQ/L (136-145)
[2017-02-23] MEDS: INSULIN IV RATE CHANGE DOCUMENTATION ML/HR XX SCH ×4 (01:04→17:11)
[2017-02-23] MEDS ORDERED: GLUCAGON FOR INJ 1 MG VIAL (J1610) SC PRN (02:30)
[2017-02-23] MEDS ORDERED: GLUCOSE 4 GM CHEW TABLET PO PRN (02:30)
[2017-02-23] MEDS ORDERED: DEXTROSE 50% 50 ML SYRINGE IV PRN (02:30)
[2017-02-23 02:35] LABS: ANION GAP 20 MEQ/L (8-16); BLOOD UREA NITROGEN 13 MG/DL (7-18); CALCIUM LEVEL 8.3 MG/DL (8.5-10.1); CARBON DIOXIDE LEVEL 11 MEQ/L (21-32); CHLORIDE LEVEL 104 MEQ/L (98-107); CREATININE FOR GFR 1.19 MG/DL (0.70-1.30); GLOMERULAR FILTRATION RATE > 60.0 (>60); GLUCOSE, FASTING 233 MG/DL (70-105); POTASSIUM SERUM 4.1 MEQ/L (3.5-5.1); SODIUM LEVEL 135 MEQ/L (136-145)
[2017-02-23] MEDS: CALCIUM CARBONATE 500 MG CHEW U/D PO PRN (04:37)
[2017-02-23 04:44] LABS: ANION GAP 15 MEQ/L (8-16); BLOOD UREA NITROGEN 13 MG/DL (7-18); CALCIUM LEVEL 8.2 MG/DL (8.5-10.1); CARBON DIOXIDE LEVEL 16 MEQ/L (21-32); CHLORIDE LEVEL 104 MEQ/L (98-107); CREATININE FOR GFR 1.17 MG/DL (0.70-1.30); GLOMERULAR FILTRATION RATE > 60.0 (>60); GLUCOSE, FASTING 225 MG/DL (70-105); POTASSIUM SERUM 3.9 MEQ/L (3.5-5.1); SODIUM LEVEL 135 MEQ/L (136-145)
[2017-02-23] MEDS: HEPARIN SOD (PORCINE) 5000 UNITS/ML VIAL SC SCH ×3 (05:24→21:22)
[2017-02-23 05:31] LABS: ABG HCO3 15.7 MEQ/L (22.0-26.0); ABG PARTIAL PRESSURE CO2 27.8 mmHg (35.0-45.0); ABG PARTIAL PRESSURE O2 92.8 mmHg (75.0-100.0); ABG STANDARD HCO3 18.1 MEQ/L (22.0-26.0); ABG TOTAL CO2 16.5 MEQ/L (22.0-29.0); ABG pH (ARTERIAL) 7.369 UNITS (7.350-7.450)
[2017-02-23] MEDS ORDERED: HumaLOG INSULIN (NovoLOG) PER UNIT SC SCH ×4 (06:00→21:00)
[2017-02-23] MEDS: OXAZEPAM 15 MG CAP PO SCH ×3 (06:00→21:21)
[2017-02-23] MEDS: D5W/0.45% SODIUM CHLORIDE 1,000 ML IV SCH (06:01)
[2017-02-23 06:25] LABS: BASO % 0.7 % (0.0-1.0); EOS % 0.9 % (0.0-3.0); LARGE UNSTAINED CELL # 0.1 K/mm3 (0.0-0.4); LARGE UNSTAINED CELL % 2.7 % (0.0-4.0); LYMPH # 1.6 K/mm3 (1.5-4.5); LYMPH % 27.3 % (24.0-44.0); MEAN CORPUSCULAR HEMOGLOBIN 32.1 pg (27.0-33.0); MEAN CORPUSCULAR HGB CONC 33.5 g/dl (32.0-36.5); MONO # 0.4 K/mm3 (0.0-0.8); MONO % 7.3 % (0.0-5.0); NEUTROPHILS # 3.2 K/mm3 (1.8-7.7); NEUTROPHILS % 61.1 % (36.0-66.0); PLATELET COUNT, AUTOMATED 113 k/mm3 (150-450); WHITE BLOOD COUNT 5.2 K/mm3 (4.0-10.0)
[2017-02-23 06:47] LABS: ANION GAP 11 MEQ/L (8-16); BLOOD UREA NITROGEN 13 MG/DL (7-18); CALCIUM LEVEL 8.1 MG/DL (8.5-10.1); CARBON DIOXIDE LEVEL 18 MEQ/L (21-32); CHLORIDE LEVEL 103 MEQ/L (98-107); GLOMERULAR FILTRATION RATE > 60.0 (>60); GLUCOSE, FASTING 224 MG/DL (70-105); POTASSIUM SERUM 3.7 MEQ/L (3.5-5.1); SODIUM LEVEL 132 MEQ/L (136-145)
--- NOTE | 2017-02-23 07:33 | IPNPDOC ---
Subjective Date Seen The patient was seen on 02/23/17. Subjective Chief Complaint/HPI The patient is a 41-year-old male admitted with a reason for visit of DKA. General: Denies: ROS Unobtainable, Chills, Night Sweats, Fatigue, Malaise, Normal Appetite, Other Symptoms Constitutional: Denies: Chills, Fever, Malaise, Night Sweats, Weakness, Fatigue , Weight Loss, Lethargy, Other Eyes: Denies: Pain, Vision change, Conjunctivae inflammation, Eyelid inflammation, Redness, Other ENT: Denies: Head Aches, Ear Pain, Dysphagia, Sinus Congestion, Post Nasal Drip , Sore Throat, Epistaxis, Other Symptoms Skin: Denies: Rash, Lesions, Jaundice, Bruising, Itching, Dry, Breakdown, Nail Changes, Other Pulmonary: Denies: Dyspnea, Cough, Pleuritic Chest Pain, Other Symptoms Cardiovascular: Denies: Chest Pain, Palpitations, Orthopnea, Paroxysmal Noc. Dyspnea, Edema, Lt Headedness, Other Symptoms Gastrointestinal: Denies: Nausea, Vomiting, Abdominal Pain, Diarrhea, Constipation, Melena, Hematochezia, Other Symptoms Objective Physical Examination General Exam: Positive: Alert, Cooperative, No Acute Distress Eye Exam: Positive: PERRLA, Conjunctiva & lids normal, EOMI, Negative: Sclera icteric ENT Exam: Positive: Atraumatic Neck Exam: Negative: JVD Chest Exam: Positive: Clear to auscultation, Normal air movement Heart Exam: Positive: Tachycardic, Normal S1, Normal S2 Telemetry: Positive: Sinus Abdomen Exam: Positive: Normal bowel sounds, Soft, Negative: Tenderness Extremity Exam: Negative: Tenderness, Swelling Psych Exam: Positive: Oriented x 3 Assessment /Plan Problems (1) DKA (diabetic ketoacidoses) Status: Resolved Discussed With: Patient Problem Specific Plan: Monitor Clinically, Repeat Labs Problem Text: [place] secondary to alcohol withdrawal. Anion gap closed - acidosis resolved. Transitioning to SC insulin today, starting clear liquid diet, advance as tolerated. (2) ETOH abuse Status: Chronic Discussed With: Patient Problem Specific Plan: Monitor Clinically Problem Text: States his last drink was Thursday - 3 days ago. States he drinks half a bottle daily. He states has gone through withdrawal symptoms before, in August 2016 at which time he was participating with alcohol rehab program. (3) Dyslipidemia Status: Chronic Problem Specific Plan: Monitor Clinically (4) Hypertension Status: Chronic Problem Specific Plan: Monitor Clinically Problem Text: Resume BB, ACEI on hold for now. Plan/VTE VTE Prophylaxis Ordered?: Yes Plan Diet: Advance Activity: Continue Current Diagnostics: Check Labs Anticipated Discharge: Home VS, I&O, 24H, [place] Vital Signs/I&O Vital Signs Date Time Temp Pulse Resp B/P (MAP) Pulse Ox O2 Delivery O2 Flow Rate FiO2 02/23/17 04:01 99.7 112 20 118/78 (91) 95 Room Air I&O- Last 24 Hours up to 6 AM 02/23/17 05:59 Intake Total 281 ml Output Total 1075 ml Balance -794 ml Laboratory Data 24H LABS Laboratory Tests 2 02/22/17 16:25: White Blood Count 8.1, Red Blood Count 5.18, Hemoglobin 16.5, Hematocrit 50.7, Mean Corpuscular Volume 98.0H, Mean Corpuscular Hemoglobin 31.9, Mean Corpuscular Hemoglobin Concent 32.6, Red Cell Distribution Width 14.0, Platelet Count 160, Neutrophils (%) (Auto) 73.1H, Lymphocytes (%) (Auto) 15.0L, Monocytes (%) (Auto) 8.1H, Eosinophils (%) (Auto) 0.1, Basophils (%) (Auto) 0.6 , Neutrophils # (Auto) 5.9, Lymphocytes # (Auto) 1.5, Monocytes # (Auto) 0.7, Eosinophils # (Auto) 0.0, Basophils # (Auto) 0.0, Large Unclassified Cells % 3.1 , Large Unclassified Cells # 0.3, Prothrombin Time 13.1, Prothromb Time International Ratio 0.98, Activated Partial Thromboplast Time 25.5L, Anion Gap 29H, Glomerular Filtration Rate 54.9L, Estimated Mean Plasma Glucose 260H, Hemoglobin A1c 10.7H, Lactic Acid Level 1.6, Calcium Level 9.2, Aspartate Amino Transf (AST/SGOT) 90H, Alanine Aminotransferase (ALT/SGPT) 79H, Alkaline Phosphatase 192H, Total Bilirubin 1.1H, Direct Bilirubin 0.3H, Total Creatine Kinase 74, Creatine Kinase MB 1.7, Creatine Kinase MB Relative Index 2.29, Troponin I < 0.02, Total Protein 8.3H, Albumin 4.0, Albumin/Globulin Ratio 0.93L , Lipase 73, Ethyl Alcohol Level < 0.003 02/22/17 17:44: Blood Gas Bicarbonate Standard 10.2L, Arterial Blood pH 7.204*L, Arterial Blood Partial Pressure CO2 9.9*L, Arterial Blood Partial Pressure O2 144.4H, Arterial Blood Total CO2 4.1L, Arterial Blood HCO3 3.8L, Arterial Blood Base Excess - 20.8L, Arterial Blood Oxygen Saturation 98.7 02/22/17 17:50: Urine Appearance CLEAR, Urine Color YELLOW, Urine pH 5.0, Urine Specific [place] 1.020, Urine Protein 2+H, Urine Glucose (UA) 3+H, Urine Ketones 2+H, Urine Urobilinogen 0.2, Urine Bilirubin NEGATIVE, Urine Leukocyte Esterase NEGATIVE, Urine Blood 1+H, Urine Nitrite NEGATIVE, Urine WBC (Auto) 1, Urine RBC (Auto) 3, Urine Hyaline Casts (Auto) 5, Urine Bacteria (Auto) NEGATIVE, Urine Squamous Epithelial Cells 0, Urine Mucus (Auto) SMALL, Urine Sperm (Auto) , Urine Amphetamines Screen NEGATIVE, Urine Benzodiazepines Screen NEGATIVE, Urine Opiates Screen NEGATIVE, Urine Methadone Screen NEGATIVE, Urine Barbiturates Screen NEGATIVE, Urine Phencyclidine Screen NEGATIVE, Urine Cocaine Metabolite Screen NEGATIVE, Urine Cannabinoids Screen NEGATIVE 02/22/17 20:13: Bedside Glucose (Misc Panel) 311H 02/22/17 20:59: Anion Gap 27H, Glomerular Filtration Rate 56.6L, Blood Urea Nitrogen 13, Creatinine 1.46H, Sodium Level 130L, Potassium Level 3.8, Chloride Level 97L, Carbon Dioxide Level 6L, Calcium Level 8.4L 02/22/17 21:17: Bedside Glucose (Misc Panel) 222H 02/22/17 22:05: Anion Gap 25H, Glomerular Filtration Rate > 60.0, Blood Urea Nitrogen 12, Creatinine 1.29, Sodium Level 133L, Potassium Level 4.3, Chloride Level 100, Carbon Dioxide Level 8L, Calcium Level 8.0L 02/22/17 22:25: Bedside Glucose (Misc Panel) 203H 02/22/17 23:03: Bedside Glucose (Misc Panel) 181H 02/23/17 00:00: Bedside Glucose (Misc Panel) 197H 02/23/17 00:08: Anion Gap 21H, Glomerular Filtration Rate > 60.0, Blood Urea Nitrogen 12, Creatinine 1.18, Sodium Level 135L, Potassium Level 4.2, Chloride Level 103, Carbon Dioxide Level 11L, Calcium Level 8.3L, Total Creatine Kinase 60, Creatine Kinase MB 2.7, Creatine Kinase MB Relative Index 4.50H, Troponin I < 0.02 02/23/17 01:01: Bedside Glucose (Misc Panel) 206H 02/23/17 02:00: Bedside Glucose (Misc Panel) 248H 02/23/17 02:08: Anion Gap 20H, Glomerular Filtration Rate > 60.0, Blood Urea Nitrogen 13, Creatinine 1.19, Sodium Level 135L, Potassium Level 4.1, Chloride Level 104, Carbon Dioxide Level 11L, Calcium Level 8.3L 02/23/17 03:07: Bedside Glucose (Misc Panel) 231H 02/23/17 03:58: Anion Gap 15, Glomerular Filtration Rate > 60.0, Blood Urea Nitrogen 13, Creatinine 1.17, Sodium Level 135L, Potassium Level 3.9, Chloride Level 104, Carbon Dioxide Level 16L, Calcium Level 8.2L 02/23/17 04:05: Bedside Glucose (Misc Panel) 202H 02/23/17 05:10: Bedside Glucose (Misc Panel) 217H 02/23/17 05:14: Blood Gas Bicarbonate Standard 18.1L, Arterial Blood pH 7.369, Arterial Blood Partial Pressure CO2 27.8L, Arterial Blood Partial Pressure O2 92.8, Arterial Blood Total CO2 16.5L, Arterial Blood HCO3 15.7L, Arterial Blood Base Excess - 8.0L, Arterial Blood Oxygen Saturation 97.2 02/23/17 06:03: Bedside Glucose (Misc Panel) 209H 02/23/17 06:15: White Blood Count 5.2, Red Blood Count 4.39, Hemoglobin 14.1#, Hematocrit 42.1, Mean Corpuscular Volume 96.0, Mean Corpuscular Hemoglobin 32.1, Mean Corpuscular Hemoglobin Concent 33.5, Red Cell Distribution Width 14.0, Platelet Count 113L, Neutrophils (%) (Auto) 61.1, Lymphocytes (%) (Auto) 27.3, Monocytes (%) (Auto) 7.3H, Eosinophils (%) (Auto) 0.9, Basophils (%) (Auto) 0.7, Neutrophils # (Auto) 3.2, Lymphocytes # (Auto) 1.6, Monocytes # (Auto) 0.4, Eosinophils # (Auto) 0.0, Basophils # (Auto) 0.0, Large Unclassified Cells % 2.7 , Large Unclassified Cells # 0.1, Anion Gap 11, Glomerular Filtration Rate > 60.0, Blood Urea Nitrogen 13, Creatinine 1.20, Sodium Level 132L, Potassium Level 3.7, Chloride Level 103, Carbon Dioxide Level 18L, Calcium Level 8.1L, Magnesium Level 2.0 02/23/17 06:56: Bedside Glucose (Misc Panel) 225H CBC/BMP Laboratory Tests 02/22/17 16:25 Red Blood Count 5.18, Mean Corpuscular Volume 98.0 H, Mean Corpuscular Hemoglobin 31.9, Mean Corpuscular Hemoglobin Concent 32.6, Red Cell Distribution Width 14.0, Neutrophils (%) (Auto) 73.1 H, Lymphocytes (%) (Auto) 15.0 L, Monocytes (%) (Auto) 8.1 H, Eosinophils (%) (Auto) 0.1, Basophils (%) ( Auto) 0.6, Neutrophils # (Auto) 5.9, Lymphocytes # (Auto) 1.5, Monocytes # (Auto ) 0.7, Eosinophils # (Auto) 0.0, Basophils # (Auto) 0.0 02/22/17 20:59 Calcium Level 8.4 L 02/22/17 22:05 Calcium Level 8.0 L 02/23/17 00:08 Calcium Level 8.3 L, Total Creatine Kinase 60 02/23/17 02:08 Calcium Level 8.3 L 02/23/17 03:58 Calcium Level 8.2 L 02/23/17 06:15 Calcium Level 8.1 L, Red Blood Count 4.39, Mean Corpuscular Volume 96.0, Mean Corpuscular Hemoglobin 32.1, Mean Corpuscular Hemoglobin Concent 33.5, Red Cell Distribution Width 14.0, Neutrophils (%) (Auto) 61.1, Lymphocytes (%) (Auto) 27.3, Monocytes (%) (Auto) 7.3 H, Eosinophils (%) (Auto) 0.9, Basophils (%) ( Auto) 0.7, Neutrophils # (Auto) 3.2, Lymphocytes # (Auto) 1.6, Monocytes # (Auto ) 0.4, Eosinophils # (Auto) 0.0, Basophils # (Auto) 0.0 Microbiology Microbiology 02/22/17 Blood Culture, Received Pending 02/22/17 Blood Culture, Received Pending MARSHA HANSEN MD Feb 23, 2017 07:33
--- NOTE | 2017-02-23 07:51 | REP ---
CHEST X-RAY: Two views. HISTORY: Abdominal pain. Comparison study June 06, 2016. FINDINGS: EKG monitoring electrodes overlie the chest. The lungs are well inflated and free of infiltrate. The pleural angles are sharp. Heart size is normal. No significant bony abnormality. IMPRESSION: No acute disease. Signed by Timi Alvarado MD 02/23/2017 08:29 A
[2017-02-23] MEDS ORDERED: PANTOPRAZOLE 40MG INJ (PROTONIX) (C9113) IV SCH (09:00)
[2017-02-23] MEDS: ASPIRIN 81 MG ENTERIC TAB PO SCH (09:20)
[2017-02-23] MEDS: METOPROLOL TARTRATE 100 MG TAB PO SCH ×2 (09:21→20:07)
[2017-02-23] MEDS: PRAVASTATIN 20 MG TAB PO SCH (09:21)
[2017-02-23] MEDS: cloNIDine 0.1 MG TAB PO SCH (09:21)
[2017-02-23] MEDS: THIAMINE 100 MG TAB PO SCH (09:21)
[2017-02-23] MEDS: FOLIC ACID 1 MG TAB PO SCH (09:22)
[2017-02-23] MEDS: MULTIVITAMINS/MINERALS THERAP 1 TAB PO SCH (09:22)
[2017-02-23 11:57] LABS: ANION GAP 17 MEQ/L (8-16); BLOOD UREA NITROGEN 12 MG/DL (7-18); CALCIUM LEVEL 8.2 MG/DL (8.5-10.1); CARBON DIOXIDE LEVEL 13 MEQ/L (21-32); CHLORIDE LEVEL 102 MEQ/L (98-107); CREATININE FOR GFR 1.07 MG/DL (0.70-1.30); GLOMERULAR FILTRATION RATE > 60.0 (>60); GLUCOSE, FASTING 321 MG/DL (70-105); POTASSIUM SERUM 4.3 MEQ/L (3.5-5.1); SODIUM LEVEL 132 MEQ/L (136-145)
[2017-02-23] MEDS ORDERED: INSULIN HUMAN REGULAR 100 UNITS in NS 99 ML IV SCH (12:30)
[2017-02-23 13:06] LABS: ANION GAP 18 MEQ/L (8-16); BLOOD UREA NITROGEN 12 MG/DL (7-18); CALCIUM LEVEL 8.3 MG/DL (8.5-10.1); CARBON DIOXIDE LEVEL 12 MEQ/L (21-32); CHLORIDE LEVEL 101 MEQ/L (98-107); CREATININE FOR GFR 1.05 MG/DL (0.70-1.30); GLOMERULAR FILTRATION RATE > 60.0 (>60); GLUCOSE, FASTING 334 MG/DL (70-105); POTASSIUM SERUM 4.2 MEQ/L (3.5-5.1); SODIUM LEVEL 131 MEQ/L (136-145)
[2017-02-23 15:10] LABS: ANION GAP 15 MEQ/L (8-16); BLOOD UREA NITROGEN 11 MG/DL (7-18); CALCIUM LEVEL 7.8 MG/DL (8.5-10.1); CARBON DIOXIDE LEVEL 14 MEQ/L (21-32); CHLORIDE LEVEL 103 MEQ/L (98-107); CREATININE FOR GFR 1.07 MG/DL (0.70-1.30); GLOMERULAR FILTRATION RATE > 60.0 (>60); GLUCOSE, FASTING 302 MG/DL (70-105); POTASSIUM SERUM 3.9 MEQ/L (3.5-5.1); SODIUM LEVEL 132 MEQ/L (136-145)
[2017-02-23 16:39] LABS: ANION GAP 14 MEQ/L (8-16); BLOOD UREA NITROGEN 11 MG/DL (7-18); CALCIUM LEVEL 8.2 MG/DL (8.5-10.1); CARBON DIOXIDE LEVEL 16 MEQ/L (21-32); CHLORIDE LEVEL 103 MEQ/L (98-107); CREATININE FOR GFR 1.02 MG/DL (0.70-1.30); GLOMERULAR FILTRATION RATE > 60.0 (>60); GLUCOSE, FASTING 222 MG/DL (70-105); POTASSIUM SERUM 3.8 MEQ/L (3.5-5.1); SODIUM LEVEL 133 MEQ/L (136-145)
[2017-02-23] MEDS: HumaLOG INSULIN (NovoLOG) PER UNIT SC SCH (17:32)
[2017-02-23 18:25] LABS: ANION GAP 11 MEQ/L (8-16); BLOOD UREA NITROGEN 10 MG/DL (7-18); CALCIUM LEVEL 7.7 MG/DL (8.5-10.1); CARBON DIOXIDE LEVEL 18 MEQ/L (21-32); CHLORIDE LEVEL 103 MEQ/L (98-107); CREATININE FOR GFR 0.95 MG/DL (0.70-1.30); GLOMERULAR FILTRATION RATE > 60.0 (>60); GLUCOSE, FASTING 193 MG/DL (70-105); POTASSIUM SERUM 3.6 MEQ/L (3.5-5.1); SODIUM LEVEL 132 MEQ/L (136-145)
[2017-02-23 20:37] LABS: ANION GAP 10 MEQ/L (8-16); BLOOD UREA NITROGEN 9 MG/DL (7-18); CALCIUM LEVEL 7.4 MG/DL (8.5-10.1); CARBON DIOXIDE LEVEL 18 MEQ/L (21-32); CHLORIDE LEVEL 103 MEQ/L (98-107); CREATININE FOR GFR 1.25 MG/DL (0.70-1.30); GLOMERULAR FILTRATION RATE > 60.0 (>60); GLUCOSE, FASTING 333 MG/DL (70-105); SODIUM LEVEL 131 MEQ/L (136-145)
[2017-02-23] MEDS: NICOTINE 21MG/24HR 1 EA TRANSDERMAL TD SCH (21:21)
[2017-02-23 22:21] LABS: ANION GAP 13 MEQ/L (8-16); BLOOD UREA NITROGEN 8 MG/DL (7-18); CALCIUM LEVEL 7.9 MG/DL (8.5-10.1); CARBON DIOXIDE LEVEL 16 MEQ/L (21-32); CHLORIDE LEVEL 105 MEQ/L (98-107); GLOMERULAR FILTRATION RATE > 60.0 (>60); GLUCOSE, FASTING 320 MG/DL (70-105); POTASSIUM SERUM 3.9 MEQ/L (3.5-5.1); SODIUM LEVEL 134 MEQ/L (136-145)
[2017-02-24] VITALS (7 sets, daily range): BP systolic 116–133; BP diastolic 70–97
--- NOTE | 2017-02-24 00:21 | ECGEPIP ---
Stationary ECG Study [facility] Test Date: 2017-02-22 Pat Name: FALGUNI ALSTON Department: Room: [place] [address] Gender: M Patient Svcs Mgr: TL : 1975 Requested By: Rosaura Echeverria [facility] Order Number: [id number] Reading MD: Andrea Barr Measurements Intervals [place] Rate: 122 P: 53 PA: 160 QRS: 60 QRSD: 89 T: 19 QT: 313 QTc: 447 Interpretive Statements SINUS TACHYCARDIA NONSPECIFIC T-WAVE ABNORMALITY ABNORMAL RHYTHM ECG COMPARED TO THE 2 LAST TRACINGS, NO SIGNIFICANT CHANGES Electronically Signed On 02-24-2017 0:20:57 EDT by Andrea Barr
[2017-02-24 00:56] LABS: ANION GAP 11 MEQ/L (8-16); BLOOD UREA NITROGEN 8 MG/DL (7-18); CALCIUM LEVEL 8.1 MG/DL (8.5-10.1); CARBON DIOXIDE LEVEL 19 MEQ/L (21-32); CHLORIDE LEVEL 106 MEQ/L (98-107); CREATININE FOR GFR 0.98 MG/DL (0.70-1.30); GLOMERULAR FILTRATION RATE > 60.0 (>60); GLUCOSE, FASTING 236 MG/DL (70-105); POTASSIUM SERUM 3.8 MEQ/L (3.5-5.1); SODIUM LEVEL 136 MEQ/L (136-145)
[2017-02-24 02:07] LABS: ANION GAP 14 MEQ/L (8-16); BLOOD UREA NITROGEN 7 MG/DL (7-18); CARBON DIOXIDE LEVEL 16 MEQ/L (21-32); CHLORIDE LEVEL 104 MEQ/L (98-107); GLOMERULAR FILTRATION RATE > 60.0 (>60); GLUCOSE, FASTING 366 MG/DL (70-105); POTASSIUM SERUM 3.9 MEQ/L (3.5-5.1); SODIUM LEVEL 134 MEQ/L (136-145)
[2017-02-24] MEDS: MORPHINE 2 MG/ML 1ML SYRINGE IV PRN (03:27)
[2017-02-24 05:19] LABS: BASO % 0.2 % (0.0-1.0); EOS # 0.1 K/mm3 (0.0-0.50); EOS % 1.9 % (0.0-3.0); LARGE UNSTAINED CELL # 0.1 K/mm3 (0.0-0.4); LARGE UNSTAINED CELL % 2.6 % (0.0-4.0); LYMPH # 1.1 K/mm3 (1.5-4.5); LYMPH % 27.9 % (24.0-44.0); MEAN CORPUSCULAR HEMOGLOBIN 31.9 pg (27.0-33.0); MEAN CORPUSCULAR HGB CONC 32.4 g/dl (32.0-36.5); MEAN CORPUSCULAR VOLUME 98.5 fl (80.0-96.0); MONO # 0.3 K/mm3 (0.0-0.8); MONO % 7.7 % (0.0-5.0); NEUTROPHILS # 2.2 K/mm3 (1.8-7.7); NEUTROPHILS % 59.7 % (36.0-66.0); RED CELL DISTRIBUTION WIDTH 14.1 % (11.5-14.5); WHITE BLOOD COUNT 3.6 K/mm3 (4.0-10.0)
[2017-02-24 05:27] LABS: ANION GAP 17 MEQ/L (8-16); BLOOD UREA NITROGEN 8 MG/DL (7-18); CALCIUM LEVEL 7.8 MG/DL (8.5-10.1); CARBON DIOXIDE LEVEL 13 MEQ/L (21-32); CHLORIDE LEVEL 103 MEQ/L (98-107); CREATININE FOR GFR 0.96 MG/DL (0.70-1.30); GLOMERULAR FILTRATION RATE > 60.0 (>60); POTASSIUM SERUM 4.2 MEQ/L (3.5-5.1); SODIUM LEVEL 133 MEQ/L (136-145)
[2017-02-24 05:36] LABS: GLUCOSE, FASTING 413 MG/DL (70-105)
[2017-02-24] MEDS: HEPARIN SOD (PORCINE) 5000 UNITS/ML VIAL SC SCH ×3 (06:00→21:36)
[2017-02-24] MEDS: HumaLOG INSULIN (NovoLOG) PER UNIT SC SCH (06:03)
[2017-02-24 06:04] LABS: PLATELET COUNT, AUTOMATED 98 k/mm3 (150-450)
[2017-02-24] MEDS: OXAZEPAM 15 MG CAP PO SCH ×3 (06:04→21:27)
[2017-02-24 06:36] LABS: ANION GAP 20 MEQ/L (8-16); BLOOD UREA NITROGEN 8 MG/DL (7-18); CALCIUM LEVEL 7.9 MG/DL (8.5-10.1); CARBON DIOXIDE LEVEL 12 MEQ/L (21-32); CHLORIDE LEVEL 103 MEQ/L (98-107); CREATININE FOR GFR 0.93 MG/DL (0.70-1.30); GLOMERULAR FILTRATION RATE > 60.0 (>60); GLUCOSE, FASTING 373 MG/DL (70-105); MAGNESIUM LEVEL 2.2 MG/DL (1.8-2.4); POTASSIUM SERUM 4.2 MEQ/L (3.5-5.1); SODIUM LEVEL 135 MEQ/L (136-145)
[2017-02-24 08:35] LABS: ANION GAP 19 MEQ/L (8-16); BLOOD UREA NITROGEN 7 MG/DL (7-18); CALCIUM LEVEL 8.3 MG/DL (8.5-10.1); CARBON DIOXIDE LEVEL 12 MEQ/L (21-32); CHLORIDE LEVEL 105 MEQ/L (98-107); CREATININE FOR GFR 0.94 MG/DL (0.70-1.30); GLOMERULAR FILTRATION RATE > 60.0 (>60); GLUCOSE, FASTING 270 MG/DL (70-105); POTASSIUM SERUM 3.6 MEQ/L (3.5-5.1); SODIUM LEVEL 136 MEQ/L (136-145)
[2017-02-24] MEDS: METOPROLOL TARTRATE 100 MG TAB PO SCH ×2 (08:46→21:27)
[2017-02-24] MEDS: PRAVASTATIN 20 MG TAB PO SCH (08:47)
[2017-02-24] MEDS: FOLIC ACID 1 MG TAB PO SCH (08:47)
[2017-02-24] MEDS: ASPIRIN 81 MG ENTERIC TAB PO SCH (08:47)
[2017-02-24] MEDS: THIAMINE 100 MG TAB PO SCH (08:47)
[2017-02-24] MEDS: cloNIDine 0.1 MG TAB PO SCH (08:48)
[2017-02-24] MEDS: MULTIVITAMINS/MINERALS THERAP 1 TAB PO SCH (08:50)
[2017-02-24] MEDS: PANTOPRAZOLE 40MG TAB (PROTONIX) PO SCH (08:51)
[2017-02-24] MEDS: IBUPROFEN 600 MG TAB PO PRN ×2 (08:51→19:23)
--- NOTE | 2017-02-24 08:56 | ECGEPIP ---
Stationary ECG Study [facility] - ED Test Date: 2017-02-22 Pat Name: FALGUNI ALSTON Department: Room: - Gender: M [employer]: NAKUL : 1975 Requested By: GEORGE LANTIGUA Order Number: [id number] Reading MD: Nani Horton Measurements Intervals [place] Rate: 123 P: 72 ME: 121 QRS: 67 QRSD: 98 T: 47 QT: 302 QTc: 432 Interpretive Statements SINUS TACHYCARDIA ABNORMAL RHYTHM ECG NSTTW ABNORMALITY DELAYED R PROGRESSION INCREASED RATE 06/06/16 Electronically Signed On 02-24-2017 8:56:25 EDT by Nani Horton
[2017-02-24] MEDS ORDERED: NS 500 ML IV ONE (09:30)
[2017-02-24] MEDS ORDERED: INSULIN HUMAN REGULAR 100 UNITS in NS 99 ML IV SCH (10:00)
[2017-02-24] MEDS: NS 1,000 ML IV SCH ×3 (10:18→23:04)
[2017-02-24 10:36] LABS: ANION GAP 14 MEQ/L (8-16); BLOOD UREA NITROGEN 7 MG/DL (7-18); CALCIUM LEVEL 7.6 MG/DL (8.5-10.1); CARBON DIOXIDE LEVEL 15 MEQ/L (21-32); CHLORIDE LEVEL 103 MEQ/L (98-107); CREATININE FOR GFR 0.96 MG/DL (0.70-1.30); GLOMERULAR FILTRATION RATE > 60.0 (>60); GLUCOSE, FASTING 360 MG/DL (70-105); POTASSIUM SERUM 3.8 MEQ/L (3.5-5.1); SODIUM LEVEL 132 MEQ/L (136-145)
[2017-02-24] MEDS: INSULIN IV RATE CHANGE DOCUMENTATION ML/HR XX SCH ×8 (11:21→21:59)
[2017-02-24 12:55] LABS: ANION GAP 12 MEQ/L (8-16); BLOOD UREA NITROGEN 6 MG/DL (7-18); CALCIUM LEVEL 7.6 MG/DL (8.5-10.1); CARBON DIOXIDE LEVEL 17 MEQ/L (21-32); CHLORIDE LEVEL 106 MEQ/L (98-107); CREATININE FOR GFR 1.09 MG/DL (0.70-1.30); GLOMERULAR FILTRATION RATE > 60.0 (>60); GLUCOSE, FASTING 309 MG/DL (70-105); POTASSIUM SERUM 3.6 MEQ/L (3.5-5.1); SODIUM LEVEL 135 MEQ/L (136-145)
--- NOTE | 2017-02-24 12:58 | IPNPDOC ---
Subjective Date Seen The patient was seen on 02/24/17. Subjective Chief Complaint/HPI The patient is a 41-year-old male admitted with a reason for visit of DKA. Events since last encounter Patient was feeling alright. Having some abdominal tenderness. Did not eat breakfast because patient was concerned about glucose level. Constitutional: Denies: Chills, Fever ENT: Denies: Head Aches Skin: Denies: Rash, Lesions Pulmonary: Denies: Dyspnea, Cough Cardiovascular: Denies: Chest Pain, Palpitations Gastrointestinal: Reports: Nausea, Other Symptoms (Reflux symptoms ) Genitourinary: Denies: Frequency Hematologic: Denies: Bruising Neurological: Denies: Weakness, Numbness Psych: Reports: Mood Normal Objective Physical Examination General Exam: Positive: Alert, Cooperative, No Acute Distress Eye Exam: Positive: PERRLA, Conjunctiva & lids normal, EOMI, Negative: Sclera icteric ENT Exam: Positive: Atraumatic Neck Exam: Negative: JVD Chest Exam: Positive: Clear to auscultation, Normal air movement Heart Exam: Positive: Tachycardic, Normal S1, Normal S2 Telemetry: Positive: Sinus Abdomen Exam: Positive: Normal bowel sounds, Soft, Negative: Tenderness Extremity Exam: Negative: Tenderness, Swelling Psych Exam: Positive: Oriented x 3 Assessment /Plan Problems (1) DKA (diabetic ketoacidoses) Status: Resolved Discussed With: Patient Problem Specific Plan: Monitor Clinically, Repeat Labs Problem Text: Likely secondary to alcohol withdrawal. Anion gap increased overnight. Glucose has remained in 300-400 range. Restarted patient's insulin drip. Continuing oral intake at this time. Checking BMP q2hr. (2) ETOH abuse Status: Chronic Discussed With: Patient Problem Specific Plan: Monitor Clinically Problem Text: States his last drink was Thursday - 3 days ago. States he drinks half a bottle daily. He states has gone through withdrawal symptoms before, in August 2016 at which time he was participating with alcohol rehab program. (3) Dyslipidemia Status: Chronic Problem Specific Plan: Monitor Clinically (4) Hypertension Status: Chronic Problem Specific Plan: Monitor Clinically Problem Text: Resume BB, ACEI on hold for now. Plan/VTE VTE Prophylaxis Ordered?: Yes Plan Diet: Advance Activity: Continue Current Diagnostics: Check Labs Anticipated Discharge: Home VS, I&O, 24H, Fishbone Vital Signs/I&O Vital Signs Date Time Temp Pulse Resp B/P (MAP) Pulse Ox O2 Delivery O2 Flow Rate FiO2 02/24/17 12:00 97.8 82 20 117/80 (92) 97 Room Air I&O- Last 24 Hours up to 6 AM 02/24/17 06:00 Intake Total 3265.25 ml Output Total 2875 ml Balance 390.25 ml Laboratory Data 24H LABS Laboratory Tests 2 02/23/17 13:08: Bedside Glucose (Misc Panel) 307H 02/23/17 14:03: Anion Gap 15, Glomerular Filtration Rate > 60.0, Blood Urea Nitrogen 11, Creatinine 1.07, Sodium Level 132L, Potassium Level 3.9, Chloride Level 103, Carbon Dioxide Level 14L, Calcium Level 7.8L 02/23/17 14:16: Bedside Glucose (Misc Panel) 272H 02/23/17 15:36: Bedside Glucose (Misc Panel) 228H 02/23/17 16:07: Bedside Glucose (Misc Panel) 243H 02/23/17 16:09: Anion Gap 14, Glomerular Filtration Rate > 60.0, Blood Urea Nitrogen 11, Creatinine 1.02, Sodium Level 133L, Potassium Level 3.8, Chloride Level 103, Carbon Dioxide Level 16L, Calcium Level 8.2L 02/23/17 17:07: Bedside Glucose (Misc Panel) 186H 02/23/17 17:47: Anion Gap 11, Glomerular Filtration Rate > 60.0, Blood Urea Nitrogen 10, Creatinine 0.95, Sodium Level 132L, Potassium Level 3.6, Chloride Level 103, Carbon Dioxide Level 18L, Calcium Level 7.7L 02/23/17 19:43: Bedside Glucose (Misc Panel) 393H 02/23/17 19:54: Anion Gap 10, Glomerular Filtration Rate > 60.0, Blood Urea Nitrogen 9, Creatinine 1.25, Sodium Level 131L, Potassium Level 4.0, Chloride Level 103, Carbon Dioxide Level 18L, Calcium Level 7.4L 02/23/17 21:52: Anion Gap 13, Glomerular Filtration Rate > 60.0, Blood Urea Nitrogen 8, Creatinine 1.10, Sodium Level 134L, Potassium Level 3.9, Chloride Level 105, Carbon Dioxide Level 16L, Calcium Level 7.9L 02/24/17 00:22: Anion Gap 11, Glomerular Filtration Rate > 60.0, Blood Urea Nitrogen 8, Creatinine 0.98, Sodium Level 136, Potassium Level 3.8, Chloride Level 106, Carbon Dioxide Level 19L, Calcium Level 8.1L 02/24/17 01:38: Anion Gap 14, Glomerular Filtration Rate > 60.0, Blood Urea Nitrogen 7, Creatinine 1.00, Sodium Level 134L, Potassium Level 3.9, Chloride Level 104, Carbon Dioxide Level 16L, Calcium Level 8.0L 02/24/17 04:38: Anion Gap 17H, Glomerular Filtration Rate > 60.0, Blood Urea Nitrogen 8, Creatinine 0.96, Sodium Level 133L, Potassium Level 4.2, Chloride Level 103, Carbon Dioxide Level 13L, Calcium Level 7.8L, White Blood Count 3.6L, Red Blood Count 4.26L, Hemoglobin 13.6L, Hematocrit 42.0, Mean Corpuscular Volume 98.5H, Mean Corpuscular Hemoglobin 31.9, Mean Corpuscular Hemoglobin Concent 32.4, Red Cell Distribution Width 14.1, Platelet Count 98L, Neutrophils (%) (Auto) 59.7, Lymphocytes (%) (Auto) 27.9, Monocytes (%) (Auto) 7.7H, Eosinophils (%) (Auto) 1.9, Basophils (%) (Auto) 0.2, Neutrophils # (Auto) 2.2, Lymphocytes # (Auto) 1.1L, Monocytes # (Auto) 0.3, Eosinophils # (Auto) 0.1, Basophils # (Auto) 0.0, Large Unclassified Cells % 2.6, Large Unclassified Cells # 0.1 02/24/17 05:51: Anion Gap 20H, Glomerular Filtration Rate > 60.0, Blood Urea Nitrogen 8, Creatinine 0.93, Sodium Level 135L, Potassium Level 4.2, Chloride Level 103, Carbon Dioxide Level 12L, Calcium Level 7.9L, Magnesium Level 2.2 02/24/17 07:30: Bedside Glucose (Misc Panel) 295H 02/24/17 07:53: Anion Gap 19H, Glomerular Filtration Rate > 60.0, Blood Urea Nitrogen 7, Creatinine 0.94, Sodium Level 136, Potassium Level 3.6, Chloride Level 105, Carbon Dioxide Level 12L, Calcium Level 8.3L 02/24/17 10:01: Bedside Glucose (Misc Panel) 333H 02/24/17 10:08: Anion Gap 14, Glomerular Filtration Rate > 60.0, Blood Urea Nitrogen 7, Creatinine 0.96, Sodium Level 132L, Potassium Level 3.8, Chloride Level 103, Carbon Dioxide Level 15L, Calcium Level 7.6L 02/24/17 11:05: Bedside Glucose (Misc Panel) 412H 02/24/17 12:09: Bedside Glucose (Misc Panel) 291H 02/24/17 12:10: Anion Gap 12, Glomerular Filtration Rate > 60.0, Blood Urea Nitrogen 6L, Creatinine 1.09, Sodium Level 135L, Potassium Level 3.6, Chloride Level 106, Carbon Dioxide Level 17L, Calcium Level 7.6L CBC/BMP Laboratory Tests 02/23/17 14:03 Calcium Level 7.8 L 02/23/17 16:09 Calcium Level 8.2 L 02/23/17 17:47 Calcium Level 7.7 L 02/23/17 19:54 Calcium Level 7.4 L 02/23/17 21:52 Calcium Level 7.9 L 02/24/17 00:22 Calcium Level 8.1 L 02/24/17 01:38 Calcium Level 8.0 L 02/24/17 04:38 Calcium Level 7.8 L, Red Blood Count 4.26 L, Mean Corpuscular Volume 98.5 H, Mean Corpuscular Hemoglobin 31.9, Mean Corpuscular Hemoglobin Concent 32.4, Red Cell Distribution Width 14.1, Neutrophils (%) (Auto) 59.7, Lymphocytes (%) (Auto ) 27.9, Monocytes (%) (Auto) 7.7 H, Eosinophils (%) (Auto) 1.9, Basophils (%) ( Auto) 0.2, Neutrophils # (Auto) 2.2, Lymphocytes # (Auto) 1.1 L, Monocytes # ( Auto) 0.3, Eosinophils # (Auto) 0.1, Basophils # (Auto) 0.0 02/24/17 05:51 Calcium Level 7.9 L 02/24/17 07:53 Calcium Level 8.3 L 02/24/17 10:08 Calcium Level 7.6 L 02/24/17 12:10 Calcium Level 7.6 L Microbiology Microbiology 02/23/17 Blood Culture, Received Pending 02/23/17 Blood Culture, Received Pending 02/22/17 Blood Culture - Preliminary, Resulted No growth after 24 hours . All specim... 02/22/17 Blood Culture - Preliminary, Resulted GME ATTESTATION GME ATTESTATION I have both independently examined this patient as well as reviewed the dictated note. I have discussed in detail with the resident the findings and plan of treatment as documented in the residents note. I will continue to follow the patient and offer further guidance to the patients care as necessary during this hospital stay. MARSHA CRAIG DO Feb 24, 2017 12:58 FALGUNI GARDNER MD Mar 02, 2017 18:11
[2017-02-24] MEDS: NICOTINE 21MG/24HR 1 EA TRANSDERMAL TD SCH (14:45)
[2017-02-24 15:00] LABS: ANION GAP 10 MEQ/L (8-16); BLOOD UREA NITROGEN 6 MG/DL (7-18); CALCIUM LEVEL 7.6 MG/DL (8.5-10.1); CARBON DIOXIDE LEVEL 18 MEQ/L (21-32); CHLORIDE LEVEL 107 MEQ/L (98-107); CREATININE FOR GFR 1.06 MG/DL (0.70-1.30); GLOMERULAR FILTRATION RATE > 60.0 (>60); GLUCOSE, FASTING 278 MG/DL (70-105); POTASSIUM SERUM 3.6 MEQ/L (3.5-5.1); SODIUM LEVEL 135 MEQ/L (136-145)
[2017-02-24 16:30] LABS: ANION GAP 9 MEQ/L (8-16); BLOOD UREA NITROGEN 5 MG/DL (7-18); CALCIUM LEVEL 7.4 MG/DL (8.5-10.1); CARBON DIOXIDE LEVEL 18 MEQ/L (21-32); CHLORIDE LEVEL 107 MEQ/L (98-107); CREATININE FOR GFR 1.03 MG/DL (0.70-1.30); GLOMERULAR FILTRATION RATE > 60.0 (>60); POTASSIUM SERUM 3.7 MEQ/L (3.5-5.1); SODIUM LEVEL 134 MEQ/L (136-145)
[2017-02-24 16:34] LABS: GLUCOSE, FASTING 413 MG/DL (70-105)
[2017-02-25] VITALS (9 sets, daily range): BP systolic 99–143; BP diastolic 54–98
[2017-02-25] MEDS: INSULIN IV RATE CHANGE DOCUMENTATION ML/HR XX SCH ×4 (00:11→04:08)
[2017-02-25] MEDS ORDERED: D5W/0.9% SODIUM CHLORIDE 1,000 ML IV SCH (04:15)
[2017-02-25 04:57] LABS: BASO % 0.5 % (0.0-1.0); EOS # 0.1 K/mm3 (0.0-0.50); EOS % 2.8 % (0.0-3.0); LARGE UNSTAINED CELL # 0.2 K/mm3 (0.0-0.4); LARGE UNSTAINED CELL % 3.9 % (0.0-4.0); LYMPH # 1.4 K/mm3 (1.5-4.5); LYMPH % 34.6 % (24.0-44.0); MEAN CORPUSCULAR HEMOGLOBIN 31.9 pg (27.0-33.0); MEAN CORPUSCULAR HGB CONC 33.4 g/dl (32.0-36.5); MEAN CORPUSCULAR VOLUME 95.5 fl (80.0-96.0); MONO # 0.3 K/mm3 (0.0-0.8); NEUTROPHILS % 51.2 % (36.0-66.0); RED CELL DISTRIBUTION WIDTH 13.8 % (11.5-14.5); WHITE BLOOD COUNT 3.9 K/mm3 (4.0-10.0)
[2017-02-25 04:58] LABS: PLATELET COUNT, AUTOMATED 92 k/mm3 (150-450)
[2017-02-25 05:10] LABS: BLOOD UREA NITROGEN 4 MG/DL (7-18); CALCIUM LEVEL 7.4 MG/DL (8.5-10.1); CARBON DIOXIDE LEVEL 20 MEQ/L (21-32); CHLORIDE LEVEL 110 MEQ/L (98-107); CREATININE FOR GFR 0.54 MG/DL (0.70-1.30); GLUCOSE, FASTING 142 MG/DL (70-105); MAGNESIUM LEVEL 1.7 MG/DL (1.8-2.4)
[2017-02-25 05:16] LABS: ANION GAP 9 MEQ/L (8-16); SODIUM LEVEL 139 MEQ/L (136-145)
[2017-02-25] MEDS ORDERED: MAG SULF 1GM/100ML (MAG RUN) 1 GM in APPROPRIATE DILUENT 1 EA IV ONE (05:45)
[2017-02-25] MEDS ORDERED: POTASSIUM CHLORIDE 10 MEQ SR TABLET PO ONE (05:45)
[2017-02-25] MEDS: OXAZEPAM 15 MG CAP PO SCH ×3 (05:58→21:08)
[2017-02-25] MEDS: HEPARIN SOD (PORCINE) 5000 UNITS/ML VIAL SC SCH ×4 (06:00→21:09)
[2017-02-25] MEDS ORDERED: LEVEMIR (INSULIN DETEMIR) 1 UNITS/0.01ML SC ONE (06:15)
[2017-02-25] MEDS: HumaLOG INSULIN (NovoLOG) PER UNIT SC SCH ×3 (07:36→17:20)
--- NOTE | 2017-02-25 08:39 | IPNPDOC ---
Subjective Date Seen The patient was seen on 02/25/17. Subjective Chief Complaint/HPI The patient is a 41-year-old male admitted with a reason for visit of DKA. Events since last encounter Feeling better, not anxious, no tremor, tolerating diet, ojeda not want inpt rehab Constitutional: Denies: Chills, Fever Pulmonary: Denies: Dyspnea, Cough Cardiovascular: Denies: Chest Pain, Palpitations Gastrointestinal: Denies: Nausea, Vomiting Objective Physical Examination General Exam: Positive: Alert, Cooperative, No Acute Distress Eye Exam: Positive: PERRLA, Negative: Sclera icteric ENT Exam: Positive: Mucous membr. moist/pink Neck Exam: Negative: JVD Chest Exam: Positive: Clear to auscultation, Normal air movement, Negative: Rales, Rhonchi, Wheezing Heart Exam: Positive: Rate Normal, Normal S1, Normal S2 Telemetry: Positive: Sinus Abdomen Exam: Positive: Normal bowel sounds, Soft, Negative: Tenderness Extremity Exam: Negative: Tenderness, Swelling Psych Exam: Positive: Oriented x 3 Assessment /Plan Problems (1) DKA (diabetic ketoacidoses) Status: Resolved Discussed With: Patient Problem Specific Plan: Monitor Clinically, Repeat Labs Problem Text: Likely secondary to alcohol withdrawal. Anion gap closed. Bicarb 20 Started long acting insulin Can transfer to med surg (2) ETOH abuse Status: Chronic Discussed With: Patient Problem Specific Plan: Monitor Clinically Problem Text: States his last drink was Thursday - 3 days ago. States he drinks half a bottle daily. He states has gone through withdrawal symptoms before, in August 2016 at which time he was participating with alcohol rehab program. Would like outpt rehab - declines inpt (3) Dyslipidemia Status: Chronic Problem Specific Plan: Monitor Clinically (4) Hypertension Status: Chronic Problem Specific Plan: Monitor Clinically Problem Text: Resume BB, ACEI on hold for now. (5) Electrolyte abnormality Problem Text: Hyponatremia- resolved Hypokalemia- replete Hypomagnesemia- replete Plan/VTE VTE Prophylaxis Ordered?: Yes Plan Diet: Advance Activity: Continue Current Diagnostics: Check Labs Anticipated Discharge: Home VS, I&O, 24H, Fishbone Vital Signs/I&O Vital Signs Date Time Temp Pulse Resp B/P (MAP) Pulse Ox O2 Delivery O2 Flow Rate FiO2 02/25/17 08:00 98.2 91 20 140/90 (107) 97 Room Air I&O- Last 24 Hours up to 6 AM 02/25/17 05:59 Intake Total 5989 ml Output Total 3650 ml Balance 2339 ml Laboratory Data 24H LABS Laboratory Tests 2 02/24/17 10:01: Bedside Glucose (Misc Panel) 333H 02/24/17 10:08: Anion Gap 14, Glomerular Filtration Rate > 60.0, Blood Urea Nitrogen 7, Creatinine 0.96, Sodium Level 132L, Potassium Level 3.8, Chloride Level 103, Carbon Dioxide Level 15L, Calcium Level 7.6L 02/24/17 11:05: Bedside Glucose (Misc Panel) 412H 02/24/17 12:09: Bedside Glucose (Misc Panel) 291H 02/24/17 12:10: Anion Gap 12, Glomerular Filtration Rate > 60.0, Blood Urea Nitrogen 6L, Creatinine 1.09, Sodium Level 135L, Potassium Level 3.6, Chloride Level 106, Carbon Dioxide Level 17L, Calcium Level 7.6L 02/24/17 12:59: Bedside Glucose (Misc Panel) 253H 02/24/17 13:54: Anion Gap 10, Glomerular Filtration Rate > 60.0, Blood Urea Nitrogen 6L, Creatinine 1.06, Sodium Level 135L, Potassium Level 3.6, Chloride Level 107, Carbon Dioxide Level 18L, Calcium Level 7.6L 02/24/17 14:12: Bedside Glucose (Misc Panel) 326H 02/24/17 15:06: Bedside Glucose (Misc Panel) 422H 02/24/17 16:00: Anion Gap 9, Glomerular Filtration Rate > 60.0, Blood Urea Nitrogen 5L, Creatinine 1.03, Sodium Level 134L, Potassium Level 3.7, Chloride Level 107, Carbon Dioxide Level 18L, Calcium Level 7.4L 02/24/17 16:09: Bedside Glucose (Misc Panel) 429H 02/24/17 17:03: Bedside Glucose (Misc Panel) 279H 02/24/17 18:00: Bedside Glucose (Misc Panel) 225H 02/24/17 19:16: Bedside Glucose (Misc Panel) 359H 02/24/17 20:05: Bedside Glucose (Misc Panel) 380H 02/24/17 20:57: Bedside Glucose (Misc Panel) 318H 02/24/17 21:58: Bedside Glucose (Misc Panel) 230H 02/24/17 23:03: Bedside Glucose (Misc Panel) 251H 02/25/17 00:09: Bedside Glucose (Misc Panel) 302H 02/25/17 01:01: Bedside Glucose (Misc Panel) 218H 02/25/17 01:59: Bedside Glucose (Misc Panel) 206H 02/25/17 03:00: Bedside Glucose (Misc Panel) 150H 02/25/17 03:59: Bedside Glucose (Misc Panel) 136H 02/25/17 04:23: White Blood Count 3.9L, Red Blood Count 4.13L, Hemoglobin 13.2L, Hematocrit 39.5L, Mean Corpuscular Volume 95.5, Mean Corpuscular Hemoglobin 31.9, Mean Corpuscular Hemoglobin Concent 33.4, Red Cell Distribution Width 13.8, Platelet Count 92L, Neutrophils (%) (Auto) 51.2, Lymphocytes (%) (Auto) 34.6, Monocytes ( %) (Auto) 7.0H, Eosinophils (%) (Auto) 2.8, Basophils (%) (Auto) 0.5, Neutrophils # (Auto) 2.0, Lymphocytes # (Auto) 1.4L, Monocytes # (Auto) 0.3, Eosinophils # (Auto) 0.1, Basophils # (Auto) 0.0, Large Unclassified Cells % 3.9 , Large Unclassified Cells # 0.2, Anion Gap 9, Blood Urea Nitrogen 4L, Creatinine 0.54L, Sodium Level 139, Potassium Level 3.0L, Chloride Level 110H, Carbon Dioxide Level 20L, Calcium Level 7.4L, Magnesium Level 1.7L 02/25/17 04:59: Bedside Glucose (Misc Panel) 153H CBC/BMP Laboratory Tests 02/24/17 10:08 Calcium Level 7.6 L 02/24/17 12:10 Calcium Level 7.6 L 02/24/17 13:54 Calcium Level 7.6 L 02/24/17 16:00 Calcium Level 7.4 L 02/25/17 04:23 Red Blood Count 4.13 L, Mean Corpuscular Volume 95.5, Mean Corpuscular Hemoglobin 31.9, Mean Corpuscular Hemoglobin Concent 33.4, Red Cell Distribution Width 13.8, Neutrophils (%) (Auto) 51.2, Lymphocytes (%) (Auto) 34.6, Monocytes (%) (Auto) 7.0 H, Eosinophils (%) (Auto) 2.8, Basophils (%) ( Auto) 0.5, Neutrophils # (Auto) 2.0, Lymphocytes # (Auto) 1.4 L, Monocytes # ( Auto) 0.3, Eosinophils # (Auto) 0.1, Basophils # (Auto) 0.0, Calcium Level 7.4 L Microbiology Microbiology 02/23/17 Blood Culture - Preliminary, Resulted No growth after 24 hours . All specim... 02/23/17 Blood Culture - Preliminary, Resulted No growth after 24 hours . All specim... 02/22/17 Blood Culture - Preliminary, Resulted No Growth after 48 hours. All Specime... 02/22/17 Blood Culture - Final, Complete Staphylococcus Capitis FALGUNI GARDNER MD Feb 25, 2017 08:39
[2017-02-25] MEDS: METOPROLOL TARTRATE 100 MG TAB PO SCH ×2 (09:00→20:42)
[2017-02-25] MEDS: cloNIDine 0.1 MG TAB PO SCH (09:00)
[2017-02-25] MEDS: POTASSIUM CHLORIDE 10 MEQ SR TABLET PO SCH (09:02)
[2017-02-25] MEDS: THIAMINE 100 MG TAB PO SCH (09:03)
[2017-02-25] MEDS: PANTOPRAZOLE 40MG TAB (PROTONIX) PO SCH (09:03)
[2017-02-25] MEDS: MULTIVITAMINS/MINERALS THERAP 1 TAB PO SCH (09:03)
[2017-02-25] MEDS: NICOTINE 21MG/24HR 1 EA TRANSDERMAL TD SCH (09:03)
[2017-02-25] MEDS: PRAVASTATIN 20 MG TAB PO SCH (09:04)
[2017-02-25] MEDS: ASPIRIN 81 MG ENTERIC TAB PO SCH (09:04)
[2017-02-25] MEDS: FOLIC ACID 1 MG TAB PO SCH (09:04)
[2017-02-25] MEDS: LEVEMIR (INSULIN DETEMIR) 1 UNITS/0.01ML SC SCH (20:43)
[2017-02-25] MEDS ORDERED: HumaLOG INSULIN (NovoLOG) PER UNIT SC SCH (21:00)
[2017-02-25] MEDS ORDERED: NICOTINE 14 MG/24 HR TRANSDERMAL TD ONE (21:00)
[2017-02-25] MEDS: IBUPROFEN 600 MG TAB PO PRN (21:08)
[2017-02-26] MEDS: HEPARIN SOD (PORCINE) 5000 UNITS/ML VIAL SC SCH (03:26)
[2017-02-26] MEDS: OXAZEPAM 15 MG CAP PO SCH (05:30)
[2017-02-26 05:42] LABS: BASO % 0.6 % (0.0-1.0); EOS # 0.1 K/mm3 (0.0-0.50); EOS % 3.4 % (0.0-3.0); LARGE UNSTAINED CELL # 0.1 K/mm3 (0.0-0.4); LARGE UNSTAINED CELL % 3.4 % (0.0-4.0); LYMPH # 1.6 K/mm3 (1.5-4.5); LYMPH % 34.8 % (24.0-44.0); MEAN CORPUSCULAR HGB CONC 34.1 g/dl (32.0-36.5); MONO # 0.3 K/mm3 (0.0-0.8); MONO % 7.1 % (0.0-5.0); NEUTROPHILS # 2.1 K/mm3 (1.8-7.7); NEUTROPHILS % 50.6 % (36.0-66.0); PLATELET COUNT, AUTOMATED 106 k/mm3 (150-450); RED CELL DISTRIBUTION WIDTH 14.2 % (11.5-14.5); WHITE BLOOD COUNT 4.2 K/mm3 (4.0-10.0)
[2017-02-26 05:50] LABS: ANION GAP 7 MEQ/L (8-16); BLOOD UREA NITROGEN 3 MG/DL (7-18); CARBON DIOXIDE LEVEL 22 MEQ/L (21-32); CHLORIDE LEVEL 110 MEQ/L (98-107); CREATININE FOR GFR 0.77 MG/DL (0.70-1.30); GLOMERULAR FILTRATION RATE > 60.0 (>60); GLUCOSE, FASTING 211 MG/DL (70-105); MAGNESIUM LEVEL 2.1 MG/DL (1.8-2.4); POTASSIUM SERUM 3.5 MEQ/L (3.5-5.1); SODIUM LEVEL 139 MEQ/L (136-145)
[2017-02-26 06:00] VITALS: BP 135/82
[2017-02-26] MEDS: HumaLOG INSULIN (NovoLOG) PER UNIT SC SCH ×2 (08:38→12:07)
[2017-02-26] MEDS: THIAMINE 100 MG TAB PO SCH (08:39)
[2017-02-26] MEDS: PRAVASTATIN 20 MG TAB PO SCH (08:39)
[2017-02-26] MEDS: NICOTINE 21MG/24HR 1 EA TRANSDERMAL TD SCH (08:39)
[2017-02-26] MEDS: LEVEMIR (INSULIN DETEMIR) 1 UNITS/0.01ML SC SCH (08:39)
[2017-02-26 08:40] VITALS: BP 135/82
[2017-02-26] MEDS: cloNIDine 0.1 MG TAB PO SCH (08:40)
[2017-02-26] MEDS: PANTOPRAZOLE 40MG TAB (PROTONIX) PO SCH (08:40)
[2017-02-26] MEDS: MULTIVITAMINS/MINERALS THERAP 1 TAB PO SCH (08:40)
[2017-02-26] MEDS: METOPROLOL TARTRATE 100 MG TAB PO SCH (08:40)
[2017-02-26] MEDS: FOLIC ACID 1 MG TAB PO SCH (08:40)
[2017-02-26] MEDS: ASPIRIN 81 MG ENTERIC TAB PO SCH (08:40)
[2017-02-26] MEDS: POTASSIUM CHLORIDE 10 MEQ SR TABLET PO SCH (08:41)
[2017-02-26] MEDS ORDERED: OXAZ10CA PO (11:27)
--- NOTE | 2017-02-27 05:51 | DSES ---
DATE OF ADMISSION: 02/22/2017 DATE OF DISCHARGE: 02/26/2017 No specialists involved in his care. No complications during his stay, and no procedures performed during his stay. DISCHARGE DIAGNOSIS: Diabetic ketoacidosis. SECONDARY DIAGNOSES: 1. Alcohol abuse. 2. Dyslipidemia. 3. Hypertension. SUMMARY OF HIS PRESENTATION: This is a 41-year-old who presented with elevated blood sugar and abdominal pain. It looks as though he has had these symptoms in association with alcohol use cessation. Had not been able to keep food down and his blood sugar had been elevated. He was found to be diabetic ketoacidosis. He was admitted to the hospitalist service. He improved slowly and did initially fail treatment off the insulin drip. Insulin drip was restarted and then he was able to be tapered to subcutaneous insulin. He was tolerating diet. He was feeling well. He was offered the idea of inpatient rehabilitation, which he declined, although he would like to continue with outpatient rehab and does not plan on using alcohol, although he has attempted to quit before. On the day of discharge, he is tolerating diet. Blood sugars are controlled. He has no complaints of pain, chest pain, shortness of breath. No abdominal pain. No nausea, no vomiting. OBJECTIVE: VITAL SIGNS: Temperature is 97.4, pulse 85, blood pressure 135/82, 98% on room air. Intake and output notable for positive fluid balance of 915, two bowel movements on the day prior to discharge. GENERAL: He is awake, appropriately interactive, pleasantly conversant. LUNGS: Breathing is symmetrical and rested. HEART: Regular rate and rhythm. ABDOMEN: Soft, doughy, nontender. LABORATORY DATA: White cell count 4.2, hemoglobin 13.8, and platelets of 106. BUN 3, creatinine 0.77, magnesium 2.1. MICROBIOLOGY: One blood culture during his stay did grow Staphylococcus capitus. Three other cultures were negative. DISCHARGE INSTRUCTIONS: Followup with Dr. Reyes on 03/05 at 1:30 in the afternoon. Continue with outpatient rehab as previously scheduled. Activity as tolerated. Consistent carbohydrate diet. Continue on: - oxazepam 10 mg as directed on a tapering dose over the course of five days - aspirin 81 mg by mouth daily - clonidine 0.1 mg by mouth daily - folic acid 1 mg daily - continue insulin subcutaneously before meals on a sliding scale - Lantus 52 units subcutaneous daily at bedtime - metoprolol 50 mg by mouth twice daily - multivitamin table by mouth daily - Protonix 40 mg by mouth daily - pravastatin 20 mg by mouth daily - ramipril 2.5 mg by mouth daily - thiamine 100 mg by mouth daily MTDD
== END 2017-02-26 13:03 | disposition home or self-care (01) | DRG 420 ==
LOC: M ED 17:19 → M ED INP 20:05 → M ICU 22:21 → M MSPAV 02-25 09:56
PROVIDERS: ADMIT Internal Medicine; ATTEND Internal Medicine
DX: E10.10 Type 1 diabetes mellitus with ketoacidosis without coma (principal); N17.9 Acute kidney failure, unspecified; E87.1 Hypo-osmolality and hyponatremia; E78.5 Hyperlipidemia, unspecified; I10 Essential (primary) hypertension; F17.210 Nicotine dependence, cigarettes, uncomplicated; K21.9 Gastro-esophageal reflux disease without esophagitis; F10.10 Alcohol abuse, uncomplicated; Z79.82 Long term (current) use of aspirin; Z79.4 Long term (current) use of insulin; Z79.899 Other long term (current) drug therapy; Z98.52 Vasectomy status

== ENCOUNTER → 2017-03-02 | Outpatient (CLI) | payer BC ==
[2017-03-02 15:26] LABS: ALBUMIN 3.1 GM/DL (3.2-5.2); ALBUMIN/GLOBULIN RATIO 0.97 (1.00-1.93); BILIRUBIN,DIRECT 0.1 MG/DL (0.0-0.2); BILIRUBIN,TOTAL 0.3 MG/DL (0.2-1.0); TOTAL PROTEIN 6.3 GM/DL (6.4-8.2)
== END ==
LOC: M LAB 14:19
PROVIDERS: ATTEND Internal Medicine Gastroenterology
DX: K86.1 Other chronic pancreatitis (principal)

== ENCOUNTER → 2017-06-11 | Outpatient (CLI) | payer BC ==
[~2017-06-11] MED LIST changes: -ASPI81TA13 PO; +ASPI81TA24 PO; -FOLI1TAB2 PO; +FOLI1TAB4 PO; -METO-207 PO; -METO100T PO; +METO100T5 PO; +METO1TAB7 PO; -OXAZ10CA PO; +OXAZ10CA3 PO; -OXAZ15CA PO; +OXAZ15CA4 PO
== END ==
LOC: M OUTALCOH 08:11
PROVIDERS: ATTEND Psychiatry & Neurology Psychiatry
DX: F10.20 Alcohol dependence, uncomplicated (principal)

== ENCOUNTER 2017-07-25 14:10 | Inpatient (IN) | payer BC ==
[~2017-07-25] VITALS: Ht 175.3 cm; Wt 98.8 kg
[2017-07-25] MEDS ORDERED: FARX1TAB3 PO (14:40)
[2017-07-25] MEDS ORDERED: NALT50TA4 PO (14:40)
[2017-07-25] MEDS ORDERED: METF500T4 PO (14:40)
[2017-07-25] MEDS ORDERED: KETOROLAC 30 MG/ML VIAL (J1885) IV ONE (16:00)
[2017-07-25] MEDS ORDERED: ONDANSETRON 4MG/2ML VIAL (J2405) IV ONE ×2 (16:00→20:30)
[2017-07-25] MEDS ORDERED: PANTOPRAZOLE 40MG INJ (PROTONIX) (C9113) IV ONE (16:00)
[2017-07-25] MEDS ORDERED: NS 1,000 ML IV ONE ×3 (16:00→20:30)
[2017-07-25 16:17] LABS: BASO % 0.4 % (0.0-1.0); IMMATURE GRANULOCYTE % 0.3 % (0-0); LYMPH # 0.7 10^3/uL (1.5-4.5); LYMPH % 7.7 % (24.0-44.0); MEAN CORPUSCULAR HGB CONC 32.5 g/dl (32.0-36.5); MEAN CORPUSCULAR VOLUME 89.4 fl (80.0-96.0); MONO # 0.6 10^3/uL (0.0-0.8); MONO % 5.7 % (0.0-5.0); NEUTROPHILS # 8.3 10^3/uL (1.8-7.7); NEUTROPHILS % 85.9 % (36.0-66.0); PLATELET COUNT, AUTOMATED 318 10^3/uL (150-450); RED CELL DISTRIBUTION WIDTH 13.7 % (11.5-14.5); WHITE BLOOD COUNT 9.7 10^3/uL (4.0-10.0)
[2017-07-25 16:42] LABS: OSMOLALITY SERUM 323 MOSM/KG (275-295)
[2017-07-25 16:57] LABS: ALBUMIN 4.1 GM/DL (3.2-5.2); ALBUMIN/GLOBULIN RATIO 1.03 (1.00-1.93); ALKALINE PHOSPHATASE 150 U/L (45-117); ALT/SGPT 27 U/L (12-78); AMYLASE 52 U/L (25-115); ANION GAP 27 MEQ/L (8-16); AST/SGOT 20 U/L (7-37); BILIRUBIN,DIRECT 0.2 MG/DL (0.0-0.2); BILIRUBIN,TOTAL 0.6 MG/DL (0.2-1.0); BLOOD UREA NITROGEN 22 MG/DL (7-18); CALCIUM LEVEL 10.3 MG/DL (8.5-10.1); CARBON DIOXIDE LEVEL 14 MEQ/L (21-32); CHLORIDE LEVEL 92 MEQ/L (98-107); GLOMERULAR FILTRATION RATE 54.6 (>60); MAGNESIUM LEVEL 2.1 MG/DL (1.8-2.4); PHOSPHORUS LEVEL 5.7 MG/DL (2.5-4.9); POTASSIUM SERUM 4.9 MEQ/L (3.5-5.1); SODIUM LEVEL 133 MEQ/L (136-145); TOTAL PROTEIN 8.1 GM/DL (6.4-8.2)
[2017-07-25] MEDS ORDERED: MORPHINE 4 MG/ML 1ML SYRINGE IV ONE (17:00)
[2017-07-25 17:05] LABS: GLUCOSE, FASTING 464 MG/DL (70-105)
[2017-07-25] MEDS ORDERED: ISOVUE-370 76% 100ML VIAL (Q9967) As Ordered ONE (17:08)
[2017-07-25] MEDS ORDERED: HumuLIN R (REGULAR) INSULIN (NovoLIN R) **100U/ML** PER UNIT IV ONE (19:15)
[2017-07-25 20:00] LABS: ABG BASE EXCESS -6.4 (-2.0-2.0); ABG PARTIAL PRESSURE CO2 25.3 mmHg (35.0-45.0); ABG PARTIAL PRESSURE O2 83.9 mmHg (75.0-100.0); ABG STANDARD HCO3 19.2 MEQ/L (22.0-26.0); ABG TOTAL CO2 16.8 MEQ/L (22.0-29.0)
[2017-07-25] MEDS ORDERED: MORPHINE 2 MG/ML 1ML SYRINGE IV ONE (20:30)
[2017-07-25] MEDS ORDERED: HumaLOG INSULIN (NovoLOG) PER UNIT SC SCH (21:00)
[2017-07-25 21:03] LABS: ABG BASE EXCESS -3.7 (-2.0-2.0); ABG PARTIAL PRESSURE CO2 28.7 mmHg (35.0-45.0); ABG PARTIAL PRESSURE O2 73.4 mmHg (75.0-100.0); ABG STANDARD HCO3 21.3 MEQ/L (22.0-26.0); ABG TOTAL CO2 19.8 MEQ/L (22.0-29.0); ABG pH (ARTERIAL) 7.438 UNITS (7.350-7.450)
[2017-07-25] MEDS ORDERED: METO50TA7 PO (21:19)
[2017-07-25] MEDS ORDERED: CREO3600 PO (21:19)
[2017-07-25 21:20] LABS: ALBUMIN 3.3 GM/DL (3.2-5.2); ALBUMIN/GLOBULIN RATIO 0.97 (1.00-1.93); ALKALINE PHOSPHATASE 116 U/L (45-117); ALT/SGPT 24 U/L (12-78); ANION GAP 14 MEQ/L (8-16); AST/SGOT 16 U/L (7-37); BILIRUBIN,TOTAL 0.5 MG/DL (0.2-1.0); BLOOD UREA NITROGEN 22 MG/DL (7-18); CALCIUM LEVEL 9.4 MG/DL (8.5-10.1); CARBON DIOXIDE LEVEL 21 MEQ/L (21-32); CHLORIDE LEVEL 103 MEQ/L (98-107); CREATININE FOR GFR 1.28 MG/DL (0.70-1.30); GLOMERULAR FILTRATION RATE > 60.0 (>60); GLUCOSE, FASTING 137 MG/DL (70-105); POTASSIUM SERUM 4.2 MEQ/L (3.5-5.1); SODIUM LEVEL 138 MEQ/L (136-145); TOTAL PROTEIN 6.7 GM/DL (6.4-8.2)
[2017-07-25] MEDS ORDERED: IPRATROPIUM 0.5MG/ALBUTEROL 2.5MG INH SOL UD 3ML (DUONEB)(J7620) NEB PRN (21:45)
[2017-07-25] MEDS ORDERED: OXAZEPAM 15 MG CAP PO PRN (21:45)
[2017-07-25] MEDS ORDERED: LORazepam 2 MG TAB PO PRN (21:45)
[2017-07-25 22:40] VITALS: BP 148/80
[2017-07-25] MEDS ORDERED: LORazepam 1 MG TAB PO PRN (22:45)
[2017-07-25] MEDS: NS 1,000 ML IV SCH (22:54)
[2017-07-25] MEDS ORDERED: INSULIN HUMAN REGULAR 100 UNITS in NS 99 ML IV SCH (23:00)
[2017-07-25] MEDS ORDERED: INSULIN IV RATE CHANGE DOCUMENTATION ML/HR XX SCH (23:00)
[2017-07-25] MEDS: METOPROLOL TART 50 MG TAB PO SCH (23:04)
[2017-07-25] MEDS: cloNIDine 0.1 MG TAB PO SCH (23:05)
[2017-07-25] MEDS ORDERED: GLUCAGON FOR INJ 1 MG VIAL (J1610) SC PRN (23:15)
[2017-07-25] MEDS ORDERED: DEXTROSE 50% 50 ML SYRINGE IV PRN (23:15)
[2017-07-25] MEDS ORDERED: GLUCOSE 4 GM CHEW TABLET PO PRN (23:15)
[2017-07-26] VITALS: BP 121/71
[2017-07-26 01:30] LABS: ANION GAP 8 MEQ/L (8-16); BLOOD UREA NITROGEN 21 MG/DL (7-18); CALCIUM LEVEL 8.6 MG/DL (8.5-10.1); CARBON DIOXIDE LEVEL 26 MEQ/L (21-32); CHLORIDE LEVEL 106 MEQ/L (98-107); CREATININE FOR GFR 1.03 MG/DL (0.70-1.30); GLOMERULAR FILTRATION RATE > 60.0 (>60); GLUCOSE, FASTING 64 MG/DL (70-105); POTASSIUM SERUM 3.8 MEQ/L (3.5-5.1); SODIUM LEVEL 140 MEQ/L (136-145)
[2017-07-26] MEDS ORDERED: ACETAMINOPHEN TAB 650MG DOSE (2X325MG) PO PRN (02:30)
[2017-07-26 04:00] VITALS: BP 116/61
[2017-07-26] MEDS: NS 1,000 ML IV SCH (05:21)
[2017-07-26 05:41] LABS: MEAN CORPUSCULAR HEMOGLOBIN 28.6 pg (27.0-33.0); MEAN CORPUSCULAR HGB CONC 32.4 g/dl (32.0-36.5); MEAN CORPUSCULAR VOLUME 88.3 fl (80.0-96.0); RED CELL DISTRIBUTION WIDTH 13.6 % (11.5-14.5); WHITE BLOOD COUNT 7.6 10^3/uL (4.0-10.0)
[2017-07-26 05:49] LABS: ANION GAP 10 MEQ/L (8-16); BLOOD UREA NITROGEN 20 MG/DL (7-18); CALCIUM LEVEL 8.3 MG/DL (8.5-10.1); CARBON DIOXIDE LEVEL 22 MEQ/L (21-32); CHLORIDE LEVEL 106 MEQ/L (98-107); CREATININE FOR GFR 1.01 MG/DL (0.70-1.30); GLOMERULAR FILTRATION RATE > 60.0 (>60); GLUCOSE, FASTING 76 MG/DL (70-105); MAGNESIUM LEVEL 1.7 MG/DL (1.8-2.4); POTASSIUM SERUM 3.6 MEQ/L (3.5-5.1); SODIUM LEVEL 138 MEQ/L (136-145)
[2017-07-26 05:52] LABS: ABG BASE EXCESS -0.2 (-2.0-2.0); ABG HCO3 22.7 MEQ/L (22.0-26.0); ABG PARTIAL PRESSURE CO2 32.1 mmHg (35.0-45.0); ABG PARTIAL PRESSURE O2 82.7 mmHg (75.0-100.0); ABG STANDARD HCO3 24.3 MEQ/L (22.0-26.0); ABG TOTAL CO2 23.7 MEQ/L (22.0-29.0); ABG pH (ARTERIAL) 7.468 UNITS (7.350-7.450)
[2017-07-26 06:00] LABS: PLATELET COUNT, AUTOMATED 190 10^3/uL (150-450)
[2017-07-26] MEDS ORDERED: MAG SULF 1GM/100ML (MAG RUN) 1 GM in APPROPRIATE DILUENT 1 EA IV ONE (07:00)
[2017-07-26] MEDS ORDERED: HumaLOG INSULIN (NovoLOG) PER UNIT SC SCH (07:30)
[2017-07-26 08:00] VITALS: BP 127/61
[2017-07-26 08:30] VITALS: BP 127/61
[2017-07-26] MEDS: METOPROLOL TART 50 MG TAB PO SCH (08:30)
[2017-07-26] MEDS: cloNIDine 0.1 MG TAB PO SCH (08:30)
[2017-07-26] MEDS ORDERED: FOLIC ACID 1 MG TAB PO SCH (09:00)
[2017-07-26] MEDS ORDERED: MULTIVITAMINS/MINERALS THERAP 1 TAB PO SCH (09:00)
[2017-07-26] MEDS ORDERED: CHLORHEXIDINE ORAL RINSE 0.12%/15ML 120ML BOTTLE MT SCH (09:00)
[2017-07-26] MEDS ORDERED: PRAVASTATIN 20 MG TAB PO SCH (09:00)
[2017-07-26] MEDS ORDERED: THIAMINE 100 MG TAB PO SCH (09:00)
[2017-07-26] MEDS ORDERED: PANTOPRAZOLE 40MG TAB (PROTONIX) PO SCH (09:00)
[2017-07-26] MEDS ORDERED: ASPIRIN 81 MG ENTERIC TAB PO SCH (09:00)
--- NOTE | 2017-07-26 21:12 | DSES ---
DATE OF ADMISSION: 07/25/2017 DATE OF DISCHARGE: 07/26/2017 PRIMARY DISCHARGE DIAGNOSES: 1. Hyperosmolar nonketotic state with severe hyperglycemia requiring intensive care unit (ICU) stay. 2. Dyslipidemia. 3. Hypertension. 4. History of alcohol abuse. DISCHARGE MEDICATIONS: - aspirin 81 daily - clonidine 0.1 daily - folic acid 1 mg daily - Lantus insulin 52 units nightly - metoprolol 50 twice a day - multivitamin one tablet daily - Protonix 40 daily - Pravachol 20 daily - ramipril 2.5 mg daily - thiamine 100 mg daily HOSPITAL COURSE: 41-year-old male with history of diabetes, dyslipidemia, hypertension, alcohol abuse, presented to the emergency room (ER) with complaints of elevated sugars and abdominal pain similar to previous admission in February 2017. The patient admits to being noncompliant with his medications and was found to have uncontrolled glucose and admitted overnight. Resumed on his home dose insulin. He had episodes of low magnesium which was supplemented. He had symptomatic relief of his abdominal pain. Blood cultures were negative. CT abdomen and pelvis had no acute pathology. Patient was discharged home to followup with primary care physician as outpatient. LABORATORY DATA ON DISCHARGE: White count 7.6, hemoglobin 12, hematocrit 39, platelet count 190, sodium 138, potassium 3.6, chloride 106, bicarbonate 22, BUN 20, creatinine 1, glucose 76, magnesium 1.7. TIME SPENT ON DISCHARGE: 30 minutes.
--- NOTE | 2017-07-26 21:26 | ECGEPIP ---
Stationary ECG Study [facility] ED Test Date: 2017-07-25 Pat Name: FALGUNI ALSTON Department: Room: - Gender: M Typing Checker: ct : 1975 Requested By: KANE ERIC PA-C Order Number: [id number] Reading MD: Nani Horton Measurements Intervals [place] Rate: 131 P: 76 NV: 114 QRS: 74 QRSD: 89 T: 62 QT: 277 QTc: 410 Interpretive Statements SINUS TACHYCARDIA WITH SHORT NV INTERVAL ABNORMAL RHYTHM ECG DELAYED R PROGRESSION INCREASED RATE 02/22/17 Electronically Signed On 07-26-2017 21:25:52 EST by Nani Horton
--- NOTE | 2017-07-27 12:10 | HPE ---
DATE OF ADMISSION: 07/25/2017 The patient, Camilo Hess, is a 42-year-old male. Patient comes in with the chief complaint of abdominal pain, nausea, and vomiting. Patient's primary medical doctor (PMD) is Dr. Reyes. Patient's previous medical history includes insulin-dependent diabetes mellitus, dyslipidemia, hypertension, alcohol use (last drink over 5 days ago as per patient). HISTORY OF PRESENT ILLNESS: Patient notes that he began not feeling well Thursday. Did not have any drinks according to him. Patient is currently on naloxone. Patient notes that he actually took more insulin than usual, as he noticed that his glucose was going up. Patient says he has not been able to keep things down per os, that he has been vomiting to the point of dry retches. Patient denies, however, constipation, diarrhea. Patient says the abdominal pain is general and diffuse. Patient feels much improved when I came to see him in the emergency department (ED). Patient's home medications include: - aspirin 81 - clonidine 0.1 - Creon 36,000 - Farxiga - folic acid - insulin aspart - insulin glargine - metformin - metoprolol - multivitamins - naltrexone - oxazepam - pantoprazole - pravastatin - ramipril - thiamine ALLERGIES: Patient without any significant history of allergies to any known drugs. Patient with no significant family history as per patient. Patient's past surgical history includes vasectomy. Patient's social history is a current smoker, struggling alcoholic, not a drug user. REVIEW OF SYSTEMS: Patient with complete 10-system review with no other acute complaints other than was noted in the history of present illness (HPI). PHYSICAL EXAM: Patient is alert and oriented times three, not in any actual acute distress at this time. Patient lying down comfortable when I came to see him. Patient's vitals are 99.2, 122 pulse rate, respiratory rate 18, blood pressure 128/73, pulse oximetry 92% on room air on his last vitals. Patient with normal affect, normal mood. Cranial nerves II-XII grossly intact. Patient able to see in all four quadrants. No apparent lymphadenopathy. Good inspiratory/expiratory effort. No wheezes, rhonchi, or rales. S1, S2, tachycardic. Abdomen is actually soft, nontender to palpation. Patient with good strength in all four extremities. Patient with complete range of motion. LABORATORY EXAM: Patient's CBC within normal limits. Patient's blood gas, most recent, appears to be mixed venous atrial. However, pH 7.28, total CO2 of 19.8, ABG base excess negative 3.7, pCO2 of 28.7, bicarbonate 19.0. Chemistry: Most recent grossly normal except BUN/creatinine is 22/1.28, significantly improved from previous creatinine of 1.5. Fasting glucose 137, improved from glucose of 464. Lactic acid initially 2.3, now 1.2. Urinalysis is not indicative of an infectious process. However, there are positive ketones and glucose in the urine. POC glucose last check 104. IMAGING: CT scan did not show any indication of pancreatitis or acute abdomen. Official report pending. ASSESSMENT AND PLAN: Patient is a 42-year-old male with previous medical history of insulin-dependent diabetes mellitus and multiple comorbidities as noted above. Patient initially admitted under impression of hyperosmolar hyperglycemic state (HHS). However, the patient's condition rapidly improving. Insulin drip discontinued. Only on normal saline (NS) right now at 150 mL/h. Will follow one more B-MET 4 hours from last. Thereafter, if continues to be normal, will change to regular daily checks. Patient nothing by mouth. Advance diet as tolerated secondary to nausea and vomiting, except for medications. Sliding scale coverage for now with glucose checks every 4 hours. Will hold patient's home insulin at this time and metformin and other oral insulins until after patient's glucose normalizing. For ethyl alcohol (EtOH) abuse, continue thiamine, folic acid, and multivitamin. Will hold naltrexone for now. Clinical [place] Withdrawal Assessment (CIWA) protocol. For hypertension, continue clonidine. For anxiety, continue oxazepam. Gastroesophageal reflux disease (GERD) and gastrointestinal (GI) prophylaxis. Continue patient's proton pump inhibitors (PPIs). For hyperlipidemia, continue patient's cardiac medications. For hypertension, continue patient's home medications. Given patient's inability to eat oral and uncontrolled diabetes, I believe patient likely to be here greater than two midnights, justifying admission. Patient first seen 07/25/2017.
--- NOTE | 2017-07-28 08:14 | REPUSA ---
CT of the abdomen and pelvis with contrast Clinical statement: Pain. Technique: Multiple axial CT images were obtained from the base of the lungs through the floor of the pelvis utilizing 5 mm axial slices after administration of nonionic intravenous contrast. Coronal an d sagittal reconstructions were also obtained. Comparison: 02/22/2017. Findings: Chest: The visualized lung bases are clear. Abdomen: The large complex cystic lesion in the anterior body the pancreas is grossly stable, now daryl suring 3.7 x 6.6 cm. The spleen, kidneys, gallbladder, and adrenal glands are unremarkable. There is diffuse low attenuation of the hepatic parenchyma. The aorta is within normal limits. There is no divya dence of abdominal lymphadenopathy or ascites. Pelvis: The bowel is unremarkable, with no obstructive or inflammatory changes. The appendix is chloe l. The urinary bladder is within normal limits. The other pelvic structures appear grossly intact. Th ere is no evidence of pelvic lymphadenopathy or ascites. Bones: There are no suspicious osseous abnormalities seen. Impression: 1. Stable appearance of the complex cystic lesion in the anterior body the pancreas, likely represent ing a pseudocyst. Cystic neoplasm cannot completely be excluded however. Continued follow-up is recom mended. 2. Stable diffuse fatty infiltration of the liver. 3. No obstructive or inflammatory bowel changes. 4. The other CT findings are grossly stable.
== END 2017-07-26 09:45 | disposition home or self-care (01) | DRG 420 ==
LOC: M ED 14:10 → M ED INP 21:35 → M ICU 22:31
PROVIDERS: ADMIT Internal Medicine; ATTEND General Practice
DX: E11.00 Type 2 diabetes mellitus with hyperosmolarity without nonketotic hyperglycemic-hyperosmolar coma (NKHHC) (principal); I10 Essential (primary) hypertension; F10.10 Alcohol abuse, uncomplicated; E78.5 Hyperlipidemia, unspecified; E11.65 Type 2 diabetes mellitus with hyperglycemia; K21.9 Gastro-esophageal reflux disease without esophagitis; F17.200 Nicotine dependence, unspecified, uncomplicated; F41.9 Anxiety disorder, unspecified; Z79.82 Long term (current) use of aspirin; Z79.4 Long term (current) use of insulin; Z79.899 Other long term (current) drug therapy; Z98.52 Vasectomy status; Z91.14 Patient's other noncompliance with medication regimen

== ENCOUNTER 2017-07-28 09:00 | Outpatient (RCR) | payer BC ==
[~2017-07-28 09:00] MED LIST changes: +CREO3600 PO; +FARX1TAB3 PO; +METF500T4 PO; +METO50TA7 PO
== END 2017-08-06 ==
LOC: M OUTALCOH 09:00
PROVIDERS: ATTEND Psychiatry & Neurology Psychiatry
DX: F10.20 Alcohol dependence, uncomplicated (principal); F17.200 Nicotine dependence, unspecified, uncomplicated

== ENCOUNTER 2017-10-28 06:08 | Inpatient (IN) | payer BC ==
[2017-10-28] MEDS: PANTOPRAZOLE 40MG INJ (PROTONIX) (C9113) IV ×2 (06:45→10:38)
[2017-10-28] MEDS: METOCLOPRAMIDE INJ 10MG/2ML VIAL (J2765) IV (06:45)
[2017-10-28] MEDS: GI COCKTAIL 50ML BTL(HYOSCYAMINE/MAALOX/LIDOCAINE VISCOUS)(1:3:1) PO (06:45)
[2017-10-28] MEDS: NS 1,000 ML IV ×3 (06:45→13:27)
[2017-10-28 06:54] LABS: BASO # 0.1 10^3/uL (0.0-0.2); BASO % 0.5 % (0.0-1.0); EOS # 0.1 10^3/uL (0.0-0.50); EOS % 0.5 % (0.0-3.0); HEMATOCRIT 55.9 % (42.0-52.0); HEMOGLOBIN 18.1 g/dl (14.0-18.0); IMMATURE GRANULOCYTE % 1.1 % (0-3.0); LYMPH # 1.7 10^3/uL (1.5-4.5); LYMPH % 15.9 % (24.0-44.0); MEAN CORPUSCULAR HEMOGLOBIN 28.6 pg (27.0-33.0); MEAN CORPUSCULAR HGB CONC 32.4 g/dl (32.0-36.5); MEAN CORPUSCULAR VOLUME 88.4 fl (80.0-96.0); MONO # 0.4 10^3/uL (0.0-0.8); MONO % 4.1 % (0.0-5.0); NEUTROPHILS # 8.1 10^3/uL (1.8-7.7); NEUTROPHILS % 77.9 % (36.0-66.0); PLATELET COUNT, AUTOMATED 361 10^3/uL (150-450); RED BLOOD COUNT 6.32 10^6/uL (4.30-6.10); RED CELL DISTRIBUTION WIDTH 14.8 % (11.5-14.5); WHITE BLOOD COUNT 10.4 10^3/uL (4.0-10.0)
[2017-10-28 07:54] LABS: ALBUMIN/GLOBULIN RATIO 1.22 (1.00-1.93); ALKALINE PHOSPHATASE 121 U/L (45-117); ALT/SGPT 23 U/L (12-78); ANION GAP 35 MEQ/L (8-16); AST/SGOT 17 U/L (7-37); BILIRUBIN,DIRECT 0.1 MG/DL (0.0-0.2); BILIRUBIN,TOTAL 0.7 MG/DL (0.2-1.0); BLOOD UREA NITROGEN 27 MG/DL (7-18); CALCIUM LEVEL 10.3 MG/DL (8.5-10.1); CARBON DIOXIDE LEVEL 6 MEQ/L (21-32); CHLORIDE LEVEL 87 MEQ/L (98-107); CPK CREATINE PHOSPHOKINASE 154 U/L (39-308); CREATININE FOR GFR 1.95 MG/DL (0.70-1.30); GLOMERULAR FILTRATION RATE 40.4 (>60); LIPASE 41 U/L (73-393); POTASSIUM SERUM 4.2 MEQ/L (3.5-5.1); SODIUM LEVEL 128 MEQ/L (136-145); TOTAL PROTEIN 9.1 GM/DL (6.4-8.2); TROPONIN I < 0.02 NG/ML (< 0.10)
[2017-10-28 07:56] LABS: CK-MB VALUE MASS 3.3 NG/ML (0.0-3.6); MB/CK RELATIVE INDEX 2.14 (< OR =4)
[2017-10-28 08:09] LABS: ETHYL ALCOHOL (ETHANOL) < 0.003 % (0.000-0.010); GLUCOSE, FASTING 494 MG/DL (70-100)
[2017-10-28] MEDS ORDERED: INSULIN HUMAN REGULAR 100 UNITS in NS 99 ML IV (08:59)
[2017-10-28] MEDS ORDERED: INSULIN IV RATE CHANGE DOCUMENTATION ML/HR XX (09:00)
[2017-10-28] MEDS: OXAZEPAM 15 MG CAP PO (09:04)
[2017-10-28 09:19] LABS: ABG BASE EXCESS -22.4 (-2.0-2.0); ABG HCO3 4.4 MEQ/L (22.0-26.0); ABG O2 SATURATION 97.4 % (95.0-99.0); ABG PARTIAL PRESSURE O2 141.6 mmHg (75.0-100.0); ABG STANDARD HCO3 9.2 MEQ/L (22.0-26.0); ABG TOTAL CO2 4.8 MEQ/L (22.0-29.0)
[2017-10-28 09:20] LABS: ABG PARTIAL PRESSURE CO2 13.6 mmHg (35.0-45.0); ABG pH (ARTERIAL) 7.124 UNITS (7.350-7.450)
[2017-10-28] MEDS: INSULIN HUMAN REGULAR 100 UNITS in NS 99 ML IV ×2 (10:02→10:16)
[2017-10-28] MEDS: HumuLIN R (REGULAR) INSULIN (NovoLIN R) **100U/ML** PER UNIT IV (10:36)
[2017-10-28] MEDS: ENOXAPARIN 40 MG/0.4 ML SYRINGE (J1650) SC (10:37)
[2017-10-28 11:02] LABS: PHOSPHORUS LEVEL 8.5 MG/DL (2.5-4.9)
[2017-10-28 11:09] LABS: BEDSIDE GLUCOSE 444 MG/DL (70-105)
[2017-10-28 11:12] LABS: ANION GAP 36 MEQ/L (8-16); BLOOD UREA NITROGEN 28 MG/DL (7-18); CALCIUM LEVEL 9.6 MG/DL (8.5-10.1); CARBON DIOXIDE LEVEL 5 MEQ/L (21-32); CHLORIDE LEVEL 87 MEQ/L (98-107); CK-MB VALUE MASS 3.3 NG/ML (0.0-3.6); CPK CREATINE PHOSPHOKINASE 149 U/L (39-308); CREATININE FOR GFR 2.06 MG/DL (0.70-1.30); GLOMERULAR FILTRATION RATE 37.9 (>60); MB/CK RELATIVE INDEX 2.21 (< OR =4); SODIUM LEVEL 128 MEQ/L (136-145); TROPONIN I < 0.02 NG/ML (< 0.10)
[2017-10-28] MEDS: ASPIRIN 81 MG ENTERIC TAB PO (11:18)
[2017-10-28] MEDS: FOLIC ACID 1 MG TAB PO (11:18)
[2017-10-28] MEDS: MULTIVITAMINS/MINERALS THERAP 1 TAB PO (11:18)
[2017-10-28] MEDS: cloNIDine 0.1 MG TAB PO ×2 (11:18→20:31)
[2017-10-28] MEDS: THIAMINE 100 MG TAB PO (11:18)
[2017-10-28 11:24] LABS: ESTIMATED AVERAGE GLUCOSE 258 MG/DL (60-110); GLUCOSE, FASTING 518 MG/DL (70-100); HEMOGLOBIN A1c 10.6 %
[2017-10-28 11:53] LABS: ACETONE/KETONE > 46.00 MG/DL (<2.81)
[2017-10-28 13:18] LABS: ANION GAP 33 MEQ/L (8-16); BLOOD UREA NITROGEN 28 MG/DL (7-18); CALCIUM LEVEL 9.3 MG/DL (8.5-10.1); CARBON DIOXIDE LEVEL 5 MEQ/L (21-32); CHLORIDE LEVEL 91 MEQ/L (98-107); GLOMERULAR FILTRATION RATE 39.2 (>60); GLUCOSE, FASTING 339 MG/DL (70-100); POTASSIUM SERUM 3.8 MEQ/L (3.5-5.1); SODIUM LEVEL 129 MEQ/L (136-145)
[2017-10-28] MEDS: NALTREXONE 50 MG TAB PO (13:21)
[2017-10-28] MEDS: PRAVASTATIN 20 MG TAB PO (13:22)
[2017-10-28 14:45] LABS: ANION GAP 27 MEQ/L (8-16); BLOOD UREA NITROGEN 26 MG/DL (7-18); CALCIUM LEVEL 8.7 MG/DL (8.5-10.1); CARBON DIOXIDE LEVEL 9 MEQ/L (21-32); CHLORIDE LEVEL 96 MEQ/L (98-107); CREATININE FOR GFR 1.75 MG/DL (0.70-1.30); GLOMERULAR FILTRATION RATE 45.7 (>60); GLUCOSE, FASTING 218 MG/DL (70-100); SODIUM LEVEL 132 MEQ/L (136-145)
[2017-10-28] MEDS: INSULIN IV RATE CHANGE DOCUMENTATION ML/HR XX ×2 (15:06→19:01)
[2017-10-28 15:16] LABS: BEDSIDE GLUCOSE 193 MG/DL (70-105)
[2017-10-28 15:40] LABS: APPEARANCE, URINE CLEAR (CLEAR); BACTERIA, URINE AUTO NEGATIVE (NEGATIVE); BILIRUBIN, URINE AUTO NEGATIVE (NEGATIVE); BLOOD, URINE BLOOD 2+ (NEGATIVE); COLOR, URINE YELLOW (YELLOW); GLUCOSE, URINE (UA) AUTO 3+ mg/dL (NEGATIVE); KETONE, URINE AUTO 2+ mg/dL (NEGATIVE); LEUKOCYTE ESTERASE, URINE AUTO NEGATIVE (NEGATIVE); MUCUS, URINE SMALL (NEGATIVE); NITRITE, URINE AUTO NEGATIVE (NEGATIVE); PROTEIN, URINE AUTO 1+ mg/dL (NEGATIVE); RBC, URINE AUTO 2 /HPF (0-3); SPECIFIC GRAVITY URINE AUTO 1.015 (1.002-1.035); SQUAMOUS EPITHELIAL CELL UR AU 0 /HPF (0-6); UROBILINOGEN, URINE AUTO 0.2 mg/dL (0.0-2.0); WBC, URINE AUTO 0 /HPF (0-3)
[2017-10-28 16:27] LABS: ANION GAP 26 MEQ/L (8-16); BLOOD UREA NITROGEN 25 MG/DL (7-18); CALCIUM LEVEL 8.4 MG/DL (8.5-10.1); CARBON DIOXIDE LEVEL 8 MEQ/L (21-32); CHLORIDE LEVEL 98 MEQ/L (98-107); CREATININE FOR GFR 1.44 MG/DL (0.70-1.30); GLOMERULAR FILTRATION RATE 57.3 (>60); GLUCOSE, FASTING 170 MG/DL (70-100); POTASSIUM SERUM 4.1 MEQ/L (3.5-5.1); SODIUM LEVEL 132 MEQ/L (136-145)
[2017-10-28 16:35] LABS: BEDSIDE GLUCOSE 159 MG/DL (70-105)
[2017-10-28] MEDS: D5W/0.9% SODIUM CHLORIDE 1,000 ML IV ×2 (17:00→21:00)
[2017-10-28 17:05] LABS: BEDSIDE GLUCOSE 133 MG/DL (70-105)
[2017-10-28 18:15] LABS: BEDSIDE GLUCOSE 174 MG/DL (70-105)
[2017-10-28 18:42] LABS: ANION GAP 21 MEQ/L (8-16); BLOOD UREA NITROGEN 21 MG/DL (7-18); CARBON DIOXIDE LEVEL 10 MEQ/L (21-32); CHLORIDE LEVEL 102 MEQ/L (98-107); CK-MB VALUE MASS 4.3 NG/ML (0.0-3.6); CPK CREATINE PHOSPHOKINASE 138 U/L (39-308); CREATININE FOR GFR 1.34 MG/DL (0.70-1.30); GLOMERULAR FILTRATION RATE > 60.0 (>60); GLUCOSE, FASTING 199 MG/DL (70-100); MB/CK RELATIVE INDEX 3.11 (< OR =4); POTASSIUM SERUM 4.3 MEQ/L (3.5-5.1); SODIUM LEVEL 133 MEQ/L (136-145); TROPONIN I < 0.02 NG/ML (< 0.10)
[2017-10-28 19:10] LABS: BEDSIDE GLUCOSE 227 MG/DL (70-105)
[2017-10-28 20:39] LABS: ANION GAP 19 MEQ/L (8-16); BLOOD UREA NITROGEN 20 MG/DL (7-18); CALCIUM LEVEL 7.9 MG/DL (8.5-10.1); CARBON DIOXIDE LEVEL 12 MEQ/L (21-32); CHLORIDE LEVEL 103 MEQ/L (98-107); CREATININE FOR GFR 1.34 MG/DL (0.70-1.30); GLOMERULAR FILTRATION RATE > 60.0 (>60); GLUCOSE, FASTING 256 MG/DL (70-100); POTASSIUM SERUM 3.8 MEQ/L (3.5-5.1); SODIUM LEVEL 134 MEQ/L (136-145)
[2017-10-28 21:09] LABS: BEDSIDE GLUCOSE 233 MG/DL (70-105)
[2017-10-28 22:48] LABS: ANION GAP 12 MEQ/L (8-16); BLOOD UREA NITROGEN 18 MG/DL (7-18); CALCIUM LEVEL 7.8 MG/DL (8.5-10.1); CARBON DIOXIDE LEVEL 16 MEQ/L (21-32); CHLORIDE LEVEL 106 MEQ/L (98-107); GLOMERULAR FILTRATION RATE > 60.0 (>60); GLUCOSE, FASTING 253 MG/DL (70-100); POTASSIUM SERUM 3.7 MEQ/L (3.5-5.1); SODIUM LEVEL 134 MEQ/L (136-145)
[2017-10-28 23:28] LABS: BEDSIDE GLUCOSE 229 MG/DL (70-105)
[2017-10-29 00:10] LABS: BEDSIDE GLUCOSE 209 MG/DL (70-105)
[2017-10-29 00:59] LABS: ANION GAP 11 MEQ/L (8-16); BLOOD UREA NITROGEN 17 MG/DL (7-18); CALCIUM LEVEL 8.1 MG/DL (8.5-10.1); CARBON DIOXIDE LEVEL 18 MEQ/L (21-32); CHLORIDE LEVEL 106 MEQ/L (98-107); CREATININE FOR GFR 1.23 MG/DL (0.70-1.30); GLOMERULAR FILTRATION RATE > 60.0 (>60); GLUCOSE, FASTING 229 MG/DL (70-100); POTASSIUM SERUM 3.7 MEQ/L (3.5-5.1); SODIUM LEVEL 135 MEQ/L (136-145)
[2017-10-29] MEDS: D5W/0.9% SODIUM CHLORIDE 1,000 ML IV ×2 (01:05→05:04)
[2017-10-29 01:26] LABS: BEDSIDE GLUCOSE 220 MG/DL (70-105)
[2017-10-29 02:16] LABS: BEDSIDE GLUCOSE 210 MG/DL (70-105)
[2017-10-29 02:31] LABS: ANION GAP 11 MEQ/L (8-16); BLOOD UREA NITROGEN 16 MG/DL (7-18); CALCIUM LEVEL 8.2 MG/DL (8.5-10.1); CARBON DIOXIDE LEVEL 18 MEQ/L (21-32); CHLORIDE LEVEL 107 MEQ/L (98-107); CPK CREATINE PHOSPHOKINASE 98 U/L (39-308); GLOMERULAR FILTRATION RATE > 60.0 (>60); GLUCOSE, FASTING 239 MG/DL (70-100); POTASSIUM SERUM 3.5 MEQ/L (3.5-5.1); SODIUM LEVEL 136 MEQ/L (136-145); TROPONIN I < 0.02 NG/ML (< 0.10)
[2017-10-29 02:32] LABS: MB/CK RELATIVE INDEX 3.06 (< OR =4)
[2017-10-29 04:41] LABS: ANION GAP 9 MEQ/L (8-16); BLOOD UREA NITROGEN 15 MG/DL (7-18); CALCIUM LEVEL 7.9 MG/DL (8.5-10.1); CARBON DIOXIDE LEVEL 19 MEQ/L (21-32); CHLORIDE LEVEL 110 MEQ/L (98-107); CREATININE FOR GFR 1.06 MG/DL (0.70-1.30); GLOMERULAR FILTRATION RATE > 60.0 (>60); GLUCOSE, FASTING 230 MG/DL (70-100); POTASSIUM SERUM 3.4 MEQ/L (3.5-5.1); SODIUM LEVEL 138 MEQ/L (136-145)
[2017-10-29 05:52] LABS: HEMATOCRIT 39.1 % (42.0-52.0); MEAN CORPUSCULAR HEMOGLOBIN 28.2 pg (27.0-33.0); MEAN CORPUSCULAR HGB CONC 33.5 g/dl (32.0-36.5); MEAN CORPUSCULAR VOLUME 84.1 fl (80.0-96.0); RED BLOOD COUNT 4.65 10^6/uL (4.30-6.10); RED CELL DISTRIBUTION WIDTH 13.9 % (11.5-14.5); WHITE BLOOD COUNT 5.6 10^3/uL (4.0-10.0)
[2017-10-29 06:11] LABS: HEMOGLOBIN 13.1 g/dl (14.0-18.0); PLATELET COUNT, AUTOMATED 154 10^3/uL (150-450)
[2017-10-29 06:18] LABS: ANION GAP 8 MEQ/L (8-16); BLOOD UREA NITROGEN 14 MG/DL (7-18); CALCIUM LEVEL 8.1 MG/DL (8.5-10.1); CARBON DIOXIDE LEVEL 20 MEQ/L (21-32); CHLORIDE LEVEL 110 MEQ/L (98-107); CREATININE FOR GFR 1.12 MG/DL (0.70-1.30); GLOMERULAR FILTRATION RATE > 60.0 (>60); GLUCOSE, FASTING 207 MG/DL (70-100); POTASSIUM SERUM 3.4 MEQ/L (3.5-5.1); SODIUM LEVEL 138 MEQ/L (136-145)
[2017-10-29 07:09] LABS: BEDSIDE GLUCOSE 203 MG/DL (70-105)
[2017-10-29 07:09] LABS: BEDSIDE GLUCOSE 239 MG/DL (70-105)
[2017-10-29 07:09] LABS: BEDSIDE GLUCOSE 207 MG/DL (70-105)
[2017-10-29 07:09] LABS: BEDSIDE GLUCOSE 239 MG/DL (70-105)
[2017-10-29 07:09] LABS: BEDSIDE GLUCOSE 218 MG/DL (70-105)
[2017-10-29] MEDS: LEVEMIR (INSULIN DETEMIR) 1 UNITS/0.01ML SC ×2 (07:39→20:41)
[2017-10-29 08:11] LABS: BEDSIDE GLUCOSE 172 MG/DL (70-105)
[2017-10-29 08:38] LABS: ANION GAP 6 MEQ/L (8-16); BLOOD UREA NITROGEN 12 MG/DL (7-18); CALCIUM LEVEL 8.1 MG/DL (8.5-10.1); CARBON DIOXIDE LEVEL 21 MEQ/L (21-32); CHLORIDE LEVEL 110 MEQ/L (98-107); CREATININE FOR GFR 1.06 MG/DL (0.70-1.30); GLOMERULAR FILTRATION RATE > 60.0 (>60); GLUCOSE, FASTING 206 MG/DL (70-100); MAGNESIUM LEVEL 2.3 MG/DL (1.8-2.4); POTASSIUM SERUM 3.4 MEQ/L (3.5-5.1); SODIUM LEVEL 137 MEQ/L (136-145)
[2017-10-29 08:51] LABS: PHOSPHORUS LEVEL 0.9 MG/DL (2.5-4.9)
[2017-10-29] MEDS: cloNIDine 0.1 MG TAB PO ×2 (09:00→20:40)
[2017-10-29] MEDS: PRAVASTATIN 20 MG TAB PO (09:06)
[2017-10-29] MEDS: THIAMINE 100 MG TAB PO (09:06)
[2017-10-29] MEDS: PANTOPRAZOLE 40MG INJ (PROTONIX) (C9113) IV (09:06)
[2017-10-29] MEDS: ASPIRIN 81 MG ENTERIC TAB PO (09:06)
[2017-10-29] MEDS: NALTREXONE 50 MG TAB PO (09:06)
[2017-10-29] MEDS: MULTIVITAMINS/MINERALS THERAP 1 TAB PO (09:06)
[2017-10-29] MEDS: ENOXAPARIN 40 MG/0.4 ML SYRINGE (J1650) SC (09:06)
[2017-10-29] MEDS: FOLIC ACID 1 MG TAB PO (09:06)
[2017-10-29] MEDS ORDERED: GLUCOSE 4 GM CHEW TABLET PO (10:00)
[2017-10-29] MEDS ORDERED: GLUCAGON FOR INJ 1 MG VIAL (J1610) SC (10:00)
[2017-10-29] MEDS ORDERED: DEXTROSE 50% 50 ML SYRINGE IV (10:00)
[2017-10-29 10:33] LABS: BEDSIDE GLUCOSE 383 MG/DL (70-105)
[2017-10-29 10:58] LABS: ANION GAP 11 MEQ/L (8-16); BLOOD UREA NITROGEN 11 MG/DL (7-18); CALCIUM LEVEL 7.9 MG/DL (8.5-10.1); CARBON DIOXIDE LEVEL 19 MEQ/L (21-32); CHLORIDE LEVEL 108 MEQ/L (98-107); CREATININE FOR GFR 1.02 MG/DL (0.70-1.30); GLOMERULAR FILTRATION RATE > 60.0 (>60); GLUCOSE, FASTING 382 MG/DL (70-100); SODIUM LEVEL 138 MEQ/L (136-145)
[2017-10-29 11:44] LABS: BEDSIDE GLUCOSE 379 MG/DL (70-105)
[2017-10-29] MEDS: K-PHOS ORIGINAL (POT.ACID PHOSPHATE) 500MG TAB PO ×3 (11:54→23:42)
[2017-10-29] MEDS: HumaLOG INSULIN (NovoLOG) PER UNIT SC ×3 (11:55→20:41)
[2017-10-29 12:16] LABS: BEDSIDE GLUCOSE 338 MG/DL (70-105)
[2017-10-29 16:56] LABS: BEDSIDE GLUCOSE 245 MG/DL (70-105)
[2017-10-29 18:26] LABS: ANION GAP 10 MEQ/L (8-16); BLOOD UREA NITROGEN 10 MG/DL (7-18); CALCIUM LEVEL 8.3 MG/DL (8.5-10.1); CARBON DIOXIDE LEVEL 22 MEQ/L (21-32); CHLORIDE LEVEL 106 MEQ/L (98-107); CREATININE FOR GFR 0.96 MG/DL (0.70-1.30); GLOMERULAR FILTRATION RATE > 60.0 (>60); GLUCOSE, FASTING 232 MG/DL (70-100); MAGNESIUM LEVEL 2.2 MG/DL (1.8-2.4); POTASSIUM SERUM 3.1 MEQ/L (3.5-5.1); SODIUM LEVEL 138 MEQ/L (136-145)
[2017-10-29 20:21] LABS: BEDSIDE GLUCOSE 272 MG/DL (70-105)
[2017-10-29] MEDS: POTASSIUM CHLORIDE 10 MEQ SR TABLET PO (20:40)
[2017-10-30] MEDS: K-PHOS ORIGINAL (POT.ACID PHOSPHATE) 500MG TAB PO ×3 (05:43→17:27)
[2017-10-30 07:03] LABS: HEMOGLOBIN 13.5 g/dl (14.0-18.0); MEAN CORPUSCULAR HEMOGLOBIN 28.8 pg (27.0-33.0); MEAN CORPUSCULAR HGB CONC 34.6 g/dl (32.0-36.5); MEAN CORPUSCULAR VOLUME 83.2 fl (80.0-96.0); PLATELET COUNT, AUTOMATED 157 10^3/uL (150-450); RED BLOOD COUNT 4.69 10^6/uL (4.30-6.10); RED CELL DISTRIBUTION WIDTH 14.1 % (11.5-14.5)
[2017-10-30 07:05] LABS: BEDSIDE GLUCOSE 71 MG/DL (70-105)
[2017-10-30] MEDS: HumaLOG INSULIN (NovoLOG) PER UNIT SC ×4 (07:07→20:23)
[2017-10-30 07:16] LABS: PHOSPHORUS LEVEL 1.7 MG/DL (2.5-4.9)
[2017-10-30 08:07] LABS: ANION GAP 14 MEQ/L (8-16); BLOOD UREA NITROGEN 8 MG/DL (7-18); CALCIUM LEVEL 8.2 MG/DL (8.5-10.1); CARBON DIOXIDE LEVEL 20 MEQ/L (21-32); CHLORIDE LEVEL 106 MEQ/L (98-107); CREATININE FOR GFR 0.55 MG/DL (0.70-1.30); GLOMERULAR FILTRATION RATE > 60.0 (>60); GLUCOSE, FASTING 68 MG/DL (70-100); POTASSIUM SERUM 2.6 MEQ/L (3.5-5.1); SODIUM LEVEL 140 MEQ/L (136-145)
[2017-10-30 08:30] LABS: BEDSIDE GLUCOSE 242 MG/DL (70-105)
[2017-10-30] MEDS: PANTOPRAZOLE 40MG INJ (PROTONIX) (C9113) IV (08:36)
[2017-10-30] MEDS: PRAVASTATIN 20 MG TAB PO (08:37)
[2017-10-30] MEDS: ENOXAPARIN 40 MG/0.4 ML SYRINGE (J1650) SC (08:37)
[2017-10-30] MEDS: POTASSIUM CHLORIDE 10 MEQ SR TABLET PO ×3 (08:37→16:16)
[2017-10-30] MEDS: THIAMINE 100 MG TAB PO (08:38)
[2017-10-30] MEDS: ASPIRIN 81 MG ENTERIC TAB PO (08:38)
[2017-10-30] MEDS: cloNIDine 0.1 MG TAB PO ×2 (08:38→20:22)
[2017-10-30] MEDS: NALTREXONE 50 MG TAB PO (08:38)
[2017-10-30] MEDS: MULTIVITAMINS/MINERALS THERAP 1 TAB PO (08:38)
[2017-10-30] MEDS: FOLIC ACID 1 MG TAB PO (08:38)
[2017-10-30] MEDS: LEVEMIR (INSULIN DETEMIR) 1 UNITS/0.01ML SC ×2 (08:39→20:22)
[2017-10-30 12:01] LABS: BEDSIDE GLUCOSE 235 MG/DL (70-105)
[2017-10-30 15:47] LABS: ANION GAP 6 MEQ/L (8-16); BLOOD UREA NITROGEN 7 MG/DL (7-18); CALCIUM LEVEL 7.9 MG/DL (8.5-10.1); CARBON DIOXIDE LEVEL 25 MEQ/L (21-32); CHLORIDE LEVEL 106 MEQ/L (98-107); GLUCOSE, FASTING 374 MG/DL (70-100); PHOSPHORUS LEVEL 1.7 MG/DL (2.5-4.9); POTASSIUM SERUM 3.5 MEQ/L (3.5-5.1); SODIUM LEVEL 137 MEQ/L (136-145)
[2017-10-30 15:52] LABS: GLOMERULAR FILTRATION RATE > 60.0 (>60)
[2017-10-30 17:07] LABS: BEDSIDE GLUCOSE 251 MG/DL (70-105)
[2017-10-30 20:19] LABS: BEDSIDE GLUCOSE 215 MG/DL (70-105)
[2017-10-31] MEDS: K-PHOS ORIGINAL (POT.ACID PHOSPHATE) 500MG TAB PO ×2 (00:17→05:24)
[2017-10-31] MEDS: cloNIDine 0.1 MG TAB PO (05:47)
[2017-10-31 06:27] LABS: HEMATOCRIT 38.6 % (42.0-52.0); HEMOGLOBIN 13.1 g/dl (14.0-18.0); MEAN CORPUSCULAR HEMOGLOBIN 28.7 pg (27.0-33.0); MEAN CORPUSCULAR HGB CONC 33.9 g/dl (32.0-36.5); MEAN CORPUSCULAR VOLUME 84.6 fl (80.0-96.0); PLATELET COUNT, AUTOMATED 129 10^3/uL (150-450); RED BLOOD COUNT 4.56 10^6/uL (4.30-6.10); RED CELL DISTRIBUTION WIDTH 14.2 % (11.5-14.5); WHITE BLOOD COUNT 5.5 10^3/uL (4.0-10.0)
[2017-10-31 06:44] LABS: MAGNESIUM LEVEL 2.1 MG/DL (1.8-2.4); PHOSPHORUS LEVEL 2.6 MG/DL (2.5-4.9)
[2017-10-31 06:53] LABS: BEDSIDE GLUCOSE 92 MG/DL (70-105)
[2017-10-31] MEDS: HumaLOG INSULIN (NovoLOG) PER UNIT SC (06:53)
[2017-10-31 07:03] LABS: ANION GAP 8 MEQ/L (8-16); BLOOD UREA NITROGEN 8 MG/DL (7-18); CALCIUM LEVEL 8.2 MG/DL (8.5-10.1); CARBON DIOXIDE LEVEL 24 MEQ/L (21-32); CHLORIDE LEVEL 108 MEQ/L (98-107); CREATININE FOR GFR 0.54 MG/DL (0.70-1.30); GLOMERULAR FILTRATION RATE > 60.0 (>60); GLUCOSE, FASTING 112 MG/DL (70-100); POTASSIUM SERUM 3.2 MEQ/L (3.5-5.1); SODIUM LEVEL 140 MEQ/L (136-145)
[2017-10-31] MEDS: POTASSIUM CHLORIDE 10 MEQ SR TABLET PO (07:30)
[2017-10-31] MEDS: PANTOPRAZOLE 40MG INJ (PROTONIX) (C9113) IV (08:19)
[2017-10-31] MEDS: NALTREXONE 50 MG TAB PO (08:19)
[2017-10-31] MEDS: MULTIVITAMINS/MINERALS THERAP 1 TAB PO (08:19)
[2017-10-31] MEDS: FOLIC ACID 1 MG TAB PO (08:19)
[2017-10-31] MEDS: THIAMINE 100 MG TAB PO (08:19)
[2017-10-31] MEDS: ENOXAPARIN 40 MG/0.4 ML SYRINGE (J1650) SC (08:19)
[2017-10-31] MEDS: ASPIRIN 81 MG ENTERIC TAB PO (08:19)
[2017-10-31] MEDS: PRAVASTATIN 20 MG TAB PO (08:19)
[2017-10-31] MEDS: LEVEMIR (INSULIN DETEMIR) 1 UNITS/0.01ML SC (08:20)
== END 2017-10-31 09:00 | disposition home or self-care (01) | DRG 420 ==
LOC: M MS4PR 10-30 12:29 → M ED 06:08 → M ED INP 10:02 → M ICU 13:50
DX: E10.10 Type 1 diabetes mellitus with ketoacidosis without coma (principal); N17.9 Acute kidney failure, unspecified; K86.3 Pseudocyst of pancreas; E83.39 Other disorders of phosphorus metabolism; F10.10 Alcohol abuse, uncomplicated; E87.6 Hypokalemia; I10 Essential (primary) hypertension; E87.1 Hypo-osmolality and hyponatremia; E78.5 Hyperlipidemia, unspecified; K21.9 Gastro-esophageal reflux disease without esophagitis; Z79.4 Long term (current) use of insulin; Z79.82 Long term (current) use of aspirin; Z79.899 Other long term (current) drug therapy

== ENCOUNTER 2018-02-17 15:22 | Emergency (ER) | payer BC ==
[2018-02-17 17:59] LABS: BASO % 0.5 % (0.0-1.0); EOS # 0.1 10^3/uL (0.0-0.50); EOS % 1.4 % (0.0-3.0); HEMATOCRIT 47.3 % (42.0-52.0); HEMOGLOBIN 15.6 g/dl (13.5-17.5); IMMATURE GRANULOCYTE % 0.2 % (0-3.0); LYMPH # 2.2 10^3/uL (1.5-4.5); LYMPH % 38.4 % (24.0-44.0); MEAN CORPUSCULAR HEMOGLOBIN 28.8 pg (27.0-33.0); MEAN CORPUSCULAR VOLUME 87.4 fl (80.0-96.0); MONO # 0.3 10^3/uL (0.0-0.8); MONO % 5.7 % (0.0-5.0); NEUTROPHILS % 53.8 % (36.0-66.0); PLATELET COUNT, AUTOMATED 213 10^3/uL (150-450); RED BLOOD COUNT 5.41 10^6/uL (4.30-6.10); RED CELL DISTRIBUTION WIDTH 15.9 % (11.5-14.5); WHITE BLOOD COUNT 5.6 10^3/uL (4.0-10.0)
[2018-02-17 18:05] LABS: VENOUS BASE EXCESS -6.2 (-2.0-2.0); VENOUS HCO3 19.3 MEQ/L (23.0-27.0); VENOUS PARTIAL PRESSURE CO2 38.4 mmHg (38.0-50.0); VENOUS PARTIAL PRESSURE O2 57.3 mmHg (30.0-50.0); VENOUS PH 7.318 UNITS (7.330-7.430); VENOUS STANDARD HCO3 19.2 MEQ/L; VENOUS TOTAL CO2 20.4 MEQ/L (24.0-28.0)
[2018-02-17 18:16] LABS: APPEARANCE, URINE CLEAR (CLEAR); BACTERIA, URINE AUTO NEGATIVE (NEGATIVE); BILIRUBIN, URINE AUTO NEGATIVE (NEGATIVE); BLOOD, URINE BLOOD NEGATIVE (NEGATIVE); COLOR, URINE YELLOW (YELLOW); GLUCOSE, URINE (UA) AUTO 3+ mg/dL (NEGATIVE); KETONE, URINE AUTO 2+ mg/dL (NEGATIVE); LEUKOCYTE ESTERASE, URINE AUTO NEGATIVE (NEGATIVE); MUCUS, URINE SMALL (NEGATIVE); NITRITE, URINE AUTO NEGATIVE (NEGATIVE); PROTEIN, URINE AUTO NEGATIVE (NEGATIVE); RBC, URINE AUTO 1 /HPF (0-3); SPECIFIC GRAVITY URINE AUTO 1.025 (1.002-1.035); SQUAMOUS EPITHELIAL CELL UR AU 0 /HPF (0-6); WBC, URINE AUTO 0 /HPF (0-3)
[2018-02-17 18:24] LABS: POS COUNT POS FLAG
[2018-02-17 18:27] LABS: ALBUMIN 4.2 GM/DL (3.2-5.2); ALBUMIN/GLOBULIN RATIO 1.05 (1.00-1.93); ALKALINE PHOSPHATASE 128 U/L (45-117); ALT/SGPT 36 U/L (12-78); ANION GAP 17 MEQ/L (8-16); AST/SGOT 36 U/L (7-37); BILIRUBIN,TOTAL 0.5 MG/DL (0.2-1.0); BLOOD UREA NITROGEN 12 MG/DL (7-18); CALCIUM LEVEL 9.5 MG/DL (8.5-10.1); CARBON DIOXIDE LEVEL 20 MEQ/L (21-32); CHLORIDE LEVEL 99 MEQ/L (98-107); CPK CREATINE PHOSPHOKINASE 126 U/L (39-308); CREATININE FOR GFR 0.95 MG/DL (0.70-1.30); GLOMERULAR FILTRATION RATE > 60.0 (>60); GLUCOSE, FASTING 258 MG/DL (70-100); LIPASE 43 U/L (73-393); MB/CK RELATIVE INDEX 1.58 (< OR =4); POTASSIUM SERUM 4.4 MEQ/L (3.5-5.1); SODIUM LEVEL 136 MEQ/L (136-145); TOTAL PROTEIN 8.2 GM/DL (6.4-8.2); TROPONIN I < 0.02 NG/ML (< 0.10)
[2018-02-17 18:34] LABS: BEDSIDE GLUCOSE 268 MG/DL (70-105)
[2018-02-17] MEDS: NS 1,000 ML IV ×4 (18:45→19:03)
[2018-02-17] MEDS: HumuLIN R (REGULAR) INSULIN (NovoLIN R) **100U/ML** PER UNIT SC ×2 (18:45)
[2018-02-17 18:52] LABS: ABG BASE EXCESS -5.3 (-2.0-2.0); ABG HCO3 18.5 MEQ/L (22.0-26.0); ABG O2 SATURATION 96.6 % (95.0-99.0); ABG PARTIAL PRESSURE CO2 31.4 mmHg (35.0-45.0); ABG PARTIAL PRESSURE O2 95.4 mmHg (75.0-100.0); ABG STANDARD HCO3 20.1 MEQ/L (22.0-26.0); ABG TOTAL CO2 19.4 MEQ/L (22.0-29.0); ABG pH (ARTERIAL) 7.387 UNITS (7.350-7.450)
[2018-02-17] MEDS: KETOROLAC 30 MG/ML VIAL (J1885) IV ×2 (19:02)
[2018-02-17] MEDS: ONDANSETRON 4MG/2ML VIAL (J2405) IV ×2 (19:02)
[2018-02-17] MEDS: GASTROGRAFIN SOLUTION 30ML PO ×2 (19:32)
[2018-02-17 19:36] LABS: AMYLASE 49 U/L (25-115)
[2018-02-17] MEDS ORDERED: ISOVUE-370 76% 100ML VIAL (Q9967) As Ordered ×2 (20:07)
== END 2018-02-17 22:05 | disposition home or self-care (01) ==
LOC: M ED 15:22
DX: K86.2 Cyst of pancreas (principal); R10.13 Epigastric pain; E11.9 Type 2 diabetes mellitus without complications; I10 Essential (primary) hypertension; E78.5 Hyperlipidemia, unspecified; K21.9 Gastro-esophageal reflux disease without esophagitis; K80.20 Calculus of gallbladder without cholecystitis without obstruction; Z72.0 Tobacco use; Z79.82 Long term (current) use of aspirin; Z79.4 Long term (current) use of insulin; Z79.899 Other long term (current) drug therapy
CPT/HCPCS: Q9963

== ENCOUNTER 2018-03-04 07:34 | Inpatient (IN) | payer BC ==
[2018-03-04 08:17] LABS: BEDSIDE GLUCOSE > 600 MG/DL (70-105)
[2018-03-04] MEDS ORDERED: MORPHINE 4 MG/ML 1ML VIAL/SYRINGE (J2270) As Ordered (08:26)
[2018-03-04] MEDS: NS 1,000 ML IV ×6 (08:28→18:15)
[2018-03-04] MEDS: ONDANSETRON 4MG/2ML VIAL (J2405) IV ×2 (08:30→09:17)
[2018-03-04] MEDS: MORPHINE 4 MG/ML 1ML VIAL/SYRINGE (J2270) IV ×2 (08:34→09:07)
[2018-03-04 08:43] LABS: BASO # 0.1 10^3/uL (0.0-0.2); BASO % 0.3 % (0.0-1.0); EOS % 0.1 % (0.0-3.0); HEMATOCRIT 52.7 % (42.0-52.0); HEMOGLOBIN 17.5 g/dl (13.5-17.5); IMMATURE GRANULOCYTE % 0.6 % (0-3.0); LYMPH % 5.7 % (24.0-44.0); MEAN CORPUSCULAR HEMOGLOBIN 29.7 pg (27.0-33.0); MEAN CORPUSCULAR HGB CONC 33.2 g/dl (32.0-36.5); MEAN CORPUSCULAR VOLUME 89.3 fl (80.0-96.0); MONO # 1.1 10^3/uL (0.0-0.8); MONO % 6.3 % (0.0-5.0); NEUTROPHILS # 15.6 10^3/uL (1.8-7.7); PLATELET COUNT, AUTOMATED 336 10^3/uL (150-450); RED CELL DISTRIBUTION WIDTH 14.6 % (11.5-14.5)
[2018-03-04 08:49] LABS: KETONE, URINE AUTO RFX 2+ mg/dL (NEGATIVE); LEUKOCYTE ESTERASE UR AUTO RFX NEGATIVE (NEGATIVE); NITRITE, URINE AUTO RFX NEGATIVE (NEGATIVE); RBC, URINE AUTO RFX 2 /HPF (0-3); SPECIFIC GRAVITY UR AUTO RFX 1.021 (1.002-1.035); SQUAM EPITHELIAL CELL UR AURFX 0 /HPF (0-6); WBC, URINE AUTO RFX 0 /HPF (0-3)
[2018-03-04] MEDS: FAMOTIDINE INJ 20MG/2ML VIAL (S0028) IVP (08:52)
[2018-03-04 08:56] LABS: POS COUNT POS FLAG
[2018-03-04 08:57] LABS: ABG BASE EXCESS -21.6 (-2.0-2.0); ABG HCO3 4.5 MEQ/L (22.0-26.0); ABG O2 SATURATION 98.1 % (95.0-99.0); ABG PARTIAL PRESSURE O2 135.3 mmHg (75.0-100.0); ABG STANDARD HCO3 9.9 MEQ/L (22.0-26.0); ABG TOTAL CO2 4.9 MEQ/L (22.0-29.0)
[2018-03-04 08:59] LABS: ABG PARTIAL PRESSURE CO2 13.3 mmHg (35.0-45.0); ABG pH (ARTERIAL) 7.143 UNITS (7.350-7.450)
[2018-03-04] MEDS: ASPIRIN 81 MG ENTERIC TAB PO (09:00)
[2018-03-04 09:06] LABS: ALBUMIN 4.4 GM/DL (3.2-5.2); ALBUMIN/GLOBULIN RATIO 0.92 (1.00-1.93); ALKALINE PHOSPHATASE 200 U/L (45-117); ALT/SGPT 64 U/L (12-78); ANION GAP 34 MEQ/L (8-16); AST/SGOT 17 U/L (7-37); BILIRUBIN,DIRECT 0.1 MG/DL (0.0-0.2); BILIRUBIN,TOTAL 0.6 MG/DL (0.2-1.0); BLOOD UREA NITROGEN 31 MG/DL (7-18); CARBON DIOXIDE LEVEL 5 MEQ/L (21-32); CHLORIDE LEVEL 89 MEQ/L (98-107); CREATININE FOR GFR 2.19 MG/DL (0.70-1.30); ETHYL ALCOHOL (ETHANOL) < 0.003 % (0.000-0.010); GLOMERULAR FILTRATION RATE 35.3 (>60); LIPASE 185 U/L (73-393); MAGNESIUM LEVEL 2.8 MG/DL (1.8-2.4); PHOSPHORUS LEVEL 8.5 MG/DL (2.5-4.9); SODIUM LEVEL 128 MEQ/L (136-145); TOTAL PROTEIN 9.2 GM/DL (6.4-8.2)
[2018-03-04] MEDS ORDERED: INSULIN HUMAN REGULAR 100 UNITS in NS 99 ML IV ×5 (09:15→21:00)
[2018-03-04] MEDS ORDERED: INSULIN IV RATE CHANGE DOCUMENTATION ML/HR XX ×3 (09:15→14:45)
[2018-03-04 09:16] LABS: GLUCOSE, FASTING 668 MG/DL (70-100)
[2018-03-04 09:17] LABS: POTASSIUM SERUM 5.8 MEQ/L (3.5-5.1)
[2018-03-04 09:19] LABS: OSMOLALITY SERUM 332 MOSM/KG (275-295)
[2018-03-04 09:22] LABS: ACETONE/KETONE > 46.00 MG/DL (<2.81)
[2018-03-04] MEDS: SUCRALFATE SUSP 1GM/10ML UD PO (09:30)
[2018-03-04 09:36] LABS: CK-MB VALUE MASS 3.5 NG/ML (<3.6); CPK CREATINE PHOSPHOKINASE 77 U/L (39-308); MB/CK RELATIVE INDEX 4.54 (< OR =4); TROPONIN I < 0.02 NG/ML (< 0.10)
[2018-03-04] MEDS: INSULIN HUMAN REGULAR 100 UNITS in NS 99 ML IV ×2 (09:39→22:00)
[2018-03-04] MEDS: METOCLOPRAMIDE INJ 10MG/2ML VIAL (J2765) IV (09:39)
[2018-03-04] MEDS: THIAMINE HCL 200 MG/2 ML VIAL (J3411) IM (09:49)
[2018-03-04 10:10] LABS: MAGNESIUM LEVEL 2.8 MG/DL (1.8-2.4); PHOSPHORUS LEVEL 8.3 MG/DL (2.5-4.9)
[2018-03-04 10:25] LABS: ESTIMATED AVERAGE GLUCOSE 255 MG/DL (60-110); HEMOGLOBIN A1c 10.5 %
[2018-03-04 10:30] LABS: BEDSIDE GLUCOSE 508 MG/DL (70-105)
[2018-03-04 11:22] LABS: MAGNESIUM LEVEL 2.5 MG/DL (1.8-2.4); PHOSPHORUS LEVEL 5.5 MG/DL (2.5-4.9)
[2018-03-04 11:37] LABS: BEDSIDE GLUCOSE 323 MG/DL (70-105)
[2018-03-04 12:40] LABS: BEDSIDE GLUCOSE 309 MG/DL (70-105)
[2018-03-04 13:24] LABS: ANION GAP 29 MEQ/L (8-16); BLOOD UREA NITROGEN 29 MG/DL (7-18); CALCIUM LEVEL 8.2 MG/DL (8.5-10.1); CARBON DIOXIDE LEVEL 7 MEQ/L (21-32); CHLORIDE LEVEL 102 MEQ/L (98-107); CREATININE FOR GFR 1.94 MG/DL (0.70-1.30); GLOMERULAR FILTRATION RATE 40.6 (>60); SODIUM LEVEL 138 MEQ/L (136-145)
[2018-03-04 13:29] LABS: GLUCOSE, FASTING 471 MG/DL (70-100); POTASSIUM SERUM 5.3 MEQ/L (3.5-5.1)
[2018-03-04 13:37] LABS: BEDSIDE GLUCOSE 213 MG/DL (70-105)
[2018-03-04] MEDS: D5W/0.45% SODIUM CHLORIDE 1,000 ML IV ×4 (13:56→19:14)
[2018-03-04 14:40] LABS: BEDSIDE GLUCOSE 196 MG/DL (70-105)
[2018-03-04] MEDS ORDERED: NS 1,000 ML, NS 1,000 ML IV (14:53)
[2018-03-04 15:36] LABS: BEDSIDE GLUCOSE 176 MG/DL (70-105)
[2018-03-04 15:42] LABS: ANION GAP 11 MEQ/L (8-16); BLOOD UREA NITROGEN 24 MG/DL (7-18); CALCIUM LEVEL 8.2 MG/DL (8.5-10.1); CARBON DIOXIDE LEVEL 19 MEQ/L (21-32); CHLORIDE LEVEL 110 MEQ/L (98-107); CREATININE FOR GFR 1.45 MG/DL (0.70-1.30); GLOMERULAR FILTRATION RATE 56.8 (>60); GLUCOSE, FASTING 170 MG/DL (70-100); POTASSIUM SERUM 4.2 MEQ/L (3.5-5.1); SODIUM LEVEL 140 MEQ/L (136-145)
[2018-03-04 15:49] LABS: ABG BASE EXCESS -5.9 (-2.0-2.0); ABG HCO3 17.5 MEQ/L (22.0-26.0); ABG O2 SATURATION 97.5 % (95.0-99.0); ABG PARTIAL PRESSURE CO2 29.5 mmHg (35.0-45.0); ABG PARTIAL PRESSURE O2 95.7 mmHg (75.0-100.0); ABG STANDARD HCO3 19.7 MEQ/L (22.0-26.0); ABG TOTAL CO2 18.4 MEQ/L (22.0-29.0); ABG pH (ARTERIAL) 7.392 UNITS (7.350-7.450)
[2018-03-04 16:44] LABS: BEDSIDE GLUCOSE 241 MG/DL (70-105)
[2018-03-04 17:20] LABS: BEDSIDE GLUCOSE 178 MG/DL (70-105)
[2018-03-04] MEDS: HEPARIN SOD (PORCINE) 5000 UNITS/ML VIAL SQ ×2 (18:13→22:03)
[2018-03-04 18:14] LABS: BEDSIDE GLUCOSE 175 MG/DL (70-105)
[2018-03-04] MEDS: MULTIVITAMINS/MINERALS THERAP 1 TAB PO (18:14)
[2018-03-04] MEDS: FOLIC ACID 1 MG TAB PO (18:14)
[2018-03-04] MEDS: NALTREXONE 50 MG TAB PO (18:14)
[2018-03-04] MEDS: THIAMINE 100 MG TAB PO (18:14)
[2018-03-04 19:07] LABS: BEDSIDE GLUCOSE 174 MG/DL (70-105)
[2018-03-04 19:23] LABS: ANION GAP 9 MEQ/L (8-16); BLOOD UREA NITROGEN 22 MG/DL (7-18); CALCIUM LEVEL 7.6 MG/DL (8.5-10.1); CARBON DIOXIDE LEVEL 20 MEQ/L (21-32); CHLORIDE LEVEL 112 MEQ/L (98-107); CREATININE FOR GFR 1.25 MG/DL (0.70-1.30); GLOMERULAR FILTRATION RATE > 60.0 (>60); GLUCOSE, FASTING 181 MG/DL (70-100); POTASSIUM SERUM 3.9 MEQ/L (3.5-5.1); SODIUM LEVEL 141 MEQ/L (136-145)
[2018-03-04] MEDS: METOPROLOL TART 50 MG TAB PO (20:06)
[2018-03-04] MEDS: cloNIDine 0.1 MG TAB PO (20:06)
[2018-03-04] MEDS: PANTOPRAZOLE 40MG INJ (PROTONIX) (C9113) IV (20:07)
[2018-03-04 20:13] LABS: BEDSIDE GLUCOSE 211 MG/DL (70-105)
[2018-03-04] MEDS: NS 0.45% 1,000 ML IV (20:53)
[2018-03-04 21:01] LABS: INFLUENZA A AMPLIFICATION NEGATIVE (NEGATIVE); INFLUENZA B AMPLIFICATION NEGATIVE (NEGATIVE)
[2018-03-04 21:09] LABS: BEDSIDE GLUCOSE 182 MG/DL (70-105)
[2018-03-04 22:08] LABS: BEDSIDE GLUCOSE 185 MG/DL (70-105)
[2018-03-04 22:59] LABS: ANION GAP 9 MEQ/L (8-16); BLOOD UREA NITROGEN 18 MG/DL (7-18); CALCIUM LEVEL 7.2 MG/DL (8.5-10.1); CARBON DIOXIDE LEVEL 19 MEQ/L (21-32); CHLORIDE LEVEL 111 MEQ/L (98-107); CREATININE FOR GFR 1.03 MG/DL (0.70-1.30); GLOMERULAR FILTRATION RATE > 60.0 (>60); GLUCOSE, FASTING 171 MG/DL (70-100); POTASSIUM SERUM 3.4 MEQ/L (3.5-5.1); SODIUM LEVEL 139 MEQ/L (136-145)
[2018-03-04 23:52] LABS: BEDSIDE GLUCOSE 168 MG/DL (70-105)
[2018-03-05] MEDS: D5W/0.45% SODIUM CHLORIDE 1,000 ML IV ×2 (02:39→09:08)
[2018-03-05 03:58] LABS: BEDSIDE GLUCOSE 125 MG/DL (70-105)
[2018-03-05 05:13] LABS: BASO % 0.2 % (0.0-1.0); EOS % 0.8 % (0.0-3.0); HEMATOCRIT 36.1 % (42.0-52.0); IMMATURE GRANULOCYTE % 0.4 % (0-3.0); LYMPH # 1.6 10^3/uL (1.5-4.5); MEAN CORPUSCULAR HEMOGLOBIN 29.2 pg (27.0-33.0); MEAN CORPUSCULAR HGB CONC 34.1 g/dl (32.0-36.5); MEAN CORPUSCULAR VOLUME 85.7 fl (80.0-96.0); MONO # 0.6 10^3/uL (0.0-0.8); MONO % 12.3 % (0.0-5.0); NEUTROPHILS # 2.9 10^3/uL (1.8-7.7); NEUTROPHILS % 55.3 % (36.0-66.0); RED BLOOD COUNT 4.21 10^6/uL (4.30-6.10); RED CELL DISTRIBUTION WIDTH 14.7 % (11.5-14.5); WHITE BLOOD COUNT 5.2 10^3/uL (4.0-10.0)
[2018-03-05] MEDS: HEPARIN SOD (PORCINE) 5000 UNITS/ML VIAL SQ ×3 (05:14→21:21)
[2018-03-05 05:18] LABS: BEDSIDE GLUCOSE 91 MG/DL (70-105)
[2018-03-05 05:19] LABS: HEMOGLOBIN 12.3 g/dl (13.5-17.5); PLATELET COUNT, AUTOMATED 140 10^3/uL (150-450)
[2018-03-05 05:30] LABS: ANION GAP 9 MEQ/L (8-16); BLOOD UREA NITROGEN 14 MG/DL (7-18); CALCIUM LEVEL 7.6 MG/DL (8.5-10.1); CARBON DIOXIDE LEVEL 21 MEQ/L (21-32); CHLORIDE LEVEL 110 MEQ/L (98-107); CREATININE FOR GFR 0.84 MG/DL (0.70-1.30); GLOMERULAR FILTRATION RATE > 60.0 (>60); GLUCOSE, FASTING 72 MG/DL (70-100); POTASSIUM SERUM 2.9 MEQ/L (3.5-5.1); SODIUM LEVEL 140 MEQ/L (136-145)
[2018-03-05] MEDS: KCL 10MEQ/100ML SWI (KRUN) 10 MEQ in APPROPRIATE DILUENT 1 EA IV ×3 (06:15→09:02)
[2018-03-05 07:09] LABS: MAGNESIUM LEVEL 1.8 MG/DL (1.8-2.4); PHOSPHORUS LEVEL 1.7 MG/DL (2.5-4.9); TROPONIN I 0.02 NG/ML (< 0.10)
[2018-03-05 07:52] LABS: BEDSIDE GLUCOSE 167 MG/DL (70-105)
[2018-03-05] MEDS ORDERED: DEXTROSE 50% 50 ML SYRINGE IV (08:15)
[2018-03-05] MEDS ORDERED: GLUCOSE 4 GM CHEW TABLET PO (08:15)
[2018-03-05] MEDS ORDERED: GLUCAGON FOR INJ 1 MG VIAL (J1610) SC (08:15)
[2018-03-05 08:50] LABS: ANION GAP 11 MEQ/L (8-16); BLOOD UREA NITROGEN 12 MG/DL (7-18); CALCIUM LEVEL 7.5 MG/DL (8.5-10.1); CARBON DIOXIDE LEVEL 19 MEQ/L (21-32); CHLORIDE LEVEL 105 MEQ/L (98-107); CREATININE FOR GFR 0.97 MG/DL (0.70-1.30); GLOMERULAR FILTRATION RATE > 60.0 (>60); GLUCOSE, FASTING 257 MG/DL (70-100); POTASSIUM SERUM 3.5 MEQ/L (3.5-5.1); SODIUM LEVEL 135 MEQ/L (136-145)
[2018-03-05] MEDS: NEUTRA-PHOS 1.25 GM PACKET PO ×3 (08:59→21:19)
[2018-03-05] MEDS: cloNIDine 0.1 MG TAB PO ×2 (08:59→21:19)
[2018-03-05] MEDS: METOPROLOL TART 50 MG TAB PO ×2 (09:00→21:20)
[2018-03-05] MEDS: MULTIVITAMINS/MINERALS THERAP 1 TAB PO (09:00)
[2018-03-05] MEDS: FOLIC ACID 1 MG TAB PO (09:00)
[2018-03-05] MEDS: PANTOPRAZOLE 40MG TAB (PROTONIX) PO (09:00)
[2018-03-05] MEDS: PRAVASTATIN 20 MG TAB PO (09:00)
[2018-03-05] MEDS: ASPIRIN 81 MG ENTERIC TAB PO (09:01)
[2018-03-05] MEDS: MAG SULF 1GM/100ML (MAG RUN) 1 GM in APPROPRIATE DILUENT 1 EA IV (09:01)
[2018-03-05] MEDS: HumaLOG INSULIN (NovoLOG) PER UNIT SC ×4 (09:02→21:00)
[2018-03-05] MEDS: LEVEMIR (INSULIN DETEMIR) 1 UNITS/0.01ML SC ×2 (09:04→21:18)
[2018-03-05] MEDS: THIAMINE 100 MG TAB PO (09:07)
[2018-03-05] MEDS: NALTREXONE 50 MG TAB PO (11:12)
[2018-03-05 11:40] LABS: BEDSIDE GLUCOSE 223 MG/DL (70-105)
[2018-03-05 12:56] LABS: ANION GAP 10 MEQ/L (8-16); BLOOD UREA NITROGEN 10 MG/DL (7-18); CALCIUM LEVEL 7.7 MG/DL (8.5-10.1); CARBON DIOXIDE LEVEL 21 MEQ/L (21-32); CHLORIDE LEVEL 106 MEQ/L (98-107); CREATININE FOR GFR 0.86 MG/DL (0.70-1.30); GLOMERULAR FILTRATION RATE > 60.0 (>60); GLUCOSE, FASTING 200 MG/DL (70-100); POTASSIUM SERUM 3.8 MEQ/L (3.5-5.1); SODIUM LEVEL 137 MEQ/L (136-145)
[2018-03-05 17:01] LABS: BEDSIDE GLUCOSE 155 MG/DL (70-105)
[2018-03-05 20:28] LABS: ANION GAP 10 MEQ/L (8-16); BLOOD UREA NITROGEN 8 MG/DL (7-18); CALCIUM LEVEL 7.5 MG/DL (8.5-10.1); CARBON DIOXIDE LEVEL 22 MEQ/L (21-32); CHLORIDE LEVEL 106 MEQ/L (98-107); CREATININE FOR GFR 0.87 MG/DL (0.70-1.30); GLOMERULAR FILTRATION RATE > 60.0 (>60); GLUCOSE, FASTING 241 MG/DL (70-100); POTASSIUM SERUM 3.5 MEQ/L (3.5-5.1); SODIUM LEVEL 138 MEQ/L (136-145)
[2018-03-05] MEDS ORDERED: ENOXAPARIN 40 MG/0.4 ML SYRINGE (J1650) SC (21:00)
[2018-03-06 04:16] LABS: BEDSIDE GLUCOSE 68 MG/DL (70-105)
[2018-03-06 05:10] LABS: ANION GAP 10 MEQ/L (8-16); BLOOD UREA NITROGEN 6 MG/DL (7-18); CALCIUM LEVEL 8.3 MG/DL (8.5-10.1); CARBON DIOXIDE LEVEL 25 MEQ/L (21-32); CHLORIDE LEVEL 107 MEQ/L (98-107); GLOMERULAR FILTRATION RATE > 60.0 (>60); GLUCOSE, FASTING 53 MG/DL (70-100); POTASSIUM SERUM 2.8 MEQ/L (3.5-5.1); SODIUM LEVEL 142 MEQ/L (136-145)
[2018-03-06] MEDS: HEPARIN SOD (PORCINE) 5000 UNITS/ML VIAL SQ ×2 (05:23→05:46)
[2018-03-06] MEDS: POTASSIUM CHLORIDE 10 MEQ SR TABLET PO ×2 (05:46→07:47)
[2018-03-06] MEDS: HumaLOG INSULIN (NovoLOG) PER UNIT SC ×2 (07:30→12:21)
[2018-03-06 07:47] LABS: PHOSPHORUS LEVEL 2.2 MG/DL (2.5-4.9)
[2018-03-06] MEDS: THIAMINE 100 MG TAB PO (07:47)
[2018-03-06] MEDS: MULTIVITAMINS/MINERALS THERAP 1 TAB PO (07:48)
[2018-03-06] MEDS: NEUTRA-PHOS 1.25 GM PACKET PO (07:48)
[2018-03-06] MEDS: FOLIC ACID 1 MG TAB PO (07:48)
[2018-03-06] MEDS: cloNIDine 0.1 MG TAB PO (07:48)
[2018-03-06] MEDS: METOPROLOL TART 50 MG TAB PO (07:49)
[2018-03-06] MEDS: ASPIRIN 81 MG ENTERIC TAB PO (07:49)
[2018-03-06] MEDS: NALTREXONE 50 MG TAB PO (07:49)
[2018-03-06] MEDS: PRAVASTATIN 20 MG TAB PO (07:49)
[2018-03-06] MEDS: PANTOPRAZOLE 40MG TAB (PROTONIX) PO (07:49)
[2018-03-06] MEDS: LEVEMIR (INSULIN DETEMIR) 1 UNITS/0.01ML SC (10:29)
[2018-03-06 10:41] LABS: ANION GAP 9 MEQ/L (8-16); BLOOD UREA NITROGEN 5 MG/DL (7-18); CALCIUM LEVEL 7.8 MG/DL (8.5-10.1); CARBON DIOXIDE LEVEL 25 MEQ/L (21-32); CHLORIDE LEVEL 105 MEQ/L (98-107); CREATININE FOR GFR 1.01 MG/DL (0.70-1.30); GLUCOSE, FASTING 323 MG/DL (70-100); POTASSIUM SERUM 3.8 MEQ/L (3.5-5.1); SODIUM LEVEL 139 MEQ/L (136-145)
[2018-03-06 10:44] LABS: GLOMERULAR FILTRATION RATE > 60.0 (>60)
[2018-03-06 11:58] LABS: BEDSIDE GLUCOSE 265 MG/DL (70-105)
== END 2018-03-06 12:48 | disposition home or self-care (01) | DRG 420 ==
LOC: M MS5PR 03-05 23:22 → M ED 07:34 → M ICU 14:39 → M ED INP 14:40 → M ICU 17:00
DX: E11.10 Type 2 diabetes mellitus with ketoacidosis without coma (principal); N17.9 Acute kidney failure, unspecified; K86.3 Pseudocyst of pancreas; R65.10 Systemic inflammatory response syndrome (SIRS) of non-infectious origin without acute organ dysfunction; K86.0 Alcohol-induced chronic pancreatitis; E83.39 Other disorders of phosphorus metabolism; E87.1 Hypo-osmolality and hyponatremia; E78.5 Hyperlipidemia, unspecified; K21.9 Gastro-esophageal reflux disease without esophagitis; Z91.19 Patient's noncompliance with other medical treatment and regimen; Z79.4 Long term (current) use of insulin; E87.6 Hypokalemia; F17.200 Nicotine dependence, unspecified, uncomplicated; Z79.82 Long term (current) use of aspirin; Z79.899 Other long term (current) drug therapy; E86.0 Dehydration; F10.10 Alcohol abuse, uncomplicated

== ENCOUNTER → 2018-03-30 | Outpatient (CLI) | payer BC ==
[2018-03-30 10:27] LABS: BASO % 0.3 % (0.0-1.0); EOS # 0.1 10^3/uL (0.0-0.50); EOS % 1.2 % (0.0-3.0); HEMATOCRIT 44.1 % (42.0-52.0); HEMOGLOBIN 14.5 g/dl (13.5-17.5); IMMATURE GRANULOCYTE % 0.5 % (0-3.0); LYMPH % 30.6 % (24.0-44.0); MEAN CORPUSCULAR HEMOGLOBIN 29.4 pg (27.0-33.0); MEAN CORPUSCULAR HGB CONC 32.9 g/dl (32.0-36.5); MEAN CORPUSCULAR VOLUME 89.3 fl (80.0-96.0); MONO # 0.4 10^3/uL (0.0-0.8); MONO % 6.2 % (0.0-5.0); NEUTROPHILS # 4.1 10^3/uL (1.8-7.7); NEUTROPHILS % 61.2 % (36.0-66.0); PLATELET COUNT, AUTOMATED 201 10^3/uL (150-450); RED BLOOD COUNT 4.94 10^6/uL (4.30-6.10); RED CELL DISTRIBUTION WIDTH 15.4 % (11.5-14.5); WHITE BLOOD COUNT 6.7 10^3/uL (4.0-10.0)
[2018-03-30 10:31] LABS: APPEARANCE, URINE CLEAR (CLEAR); BACTERIA, URINE AUTO NEGATIVE (NEGATIVE); BILIRUBIN, URINE AUTO NEGATIVE (NEGATIVE); BLOOD, URINE BLOOD NEGATIVE (NEGATIVE); COLOR, URINE YELLOW (YELLOW); GLUCOSE, URINE (UA) AUTO 3+ mg/dL (NEGATIVE); KETONE, URINE AUTO TRACE mg/dL (NEGATIVE); LEUKOCYTE ESTERASE, URINE AUTO NEGATIVE (NEGATIVE); MUCUS, URINE SMALL (NEGATIVE); NITRITE, URINE AUTO NEGATIVE (NEGATIVE); PROTEIN, URINE AUTO NEGATIVE (NEGATIVE); RBC, URINE AUTO 2 /HPF (0-3); SPECIFIC GRAVITY URINE AUTO 1.029 (1.002-1.035); SQUAMOUS EPITHELIAL CELL UR AU 0 /HPF (0-6); UROBILINOGEN, URINE AUTO 0.2 mg/dL (0.0-2.0); WBC, URINE AUTO 0 /HPF (0-3)
[2018-03-30 10:54] LABS: ALBUMIN 3.3 GM/DL (3.2-5.2); ALBUMIN/GLOBULIN RATIO 0.97 (1.00-1.93); ALKALINE PHOSPHATASE 110 U/L (45-117); ALT/SGPT 23 U/L (12-78); ANION GAP 10 MEQ/L (8-16); AST/SGOT 15 U/L (7-37); BILIRUBIN,TOTAL 0.2 MG/DL (0.2-1.0); BLOOD UREA NITROGEN 9 MG/DL (7-18); CALCIUM LEVEL 8.5 MG/DL (8.5-10.1); CARBON DIOXIDE LEVEL 25 MEQ/L (21-32); CHLORIDE LEVEL 108 MEQ/L (98-107); CHOLESTEROL LEVEL 198 MG/DL (<200); CHOLESTEROL RISK RATIO 2.444 (<5); CREATININE FOR GFR 0.79 MG/DL (0.70-1.30); GLOMERULAR FILTRATION RATE > 60.0 (>60); GLUCOSE, FASTING 276 MG/DL (70-100); HDL CHOLESTEROL 81 MG/DL (>40); LDL CHOLESTEROL 84.4 MG/DL (<100); NON-HDL-C 117 MG/DL; SODIUM LEVEL 143 MEQ/L (136-145); TOTAL PROTEIN 6.7 GM/DL (6.4-8.2); TRIGLYCERIDES LEVEL 163 MG/DL (<150)
[2018-03-30 10:55] LABS: ESTIMATED AVERAGE GLUCOSE 266 MG/DL (60-110); HEMOGLOBIN A1c 10.9 %
[2018-03-30 11:03] LABS: CREATININE, URINE 72.3 MG/DL; MALB URINE SIEMENS 11.6 MG/L
== END ==
LOC: M LAB 09:51
DX: I10 Essential (primary) hypertension (principal); E78.2 Mixed hyperlipidemia; E10.9 Type 1 diabetes mellitus without complications
CPT/HCPCS: 80053

== ENCOUNTER 2018-06-21 20:37 | Emergency (ER) | payer BC | END 2018-06-21 22:06 | disposition left against medical advice (07) | LOC: M ED 20:37 | DX: Z53.29 Procedure and treatment not carried out because of patient's decision for other reasons (principal) ==

== ENCOUNTER 2018-06-21 23:32 | Inpatient (IN) | payer BC ==
[2018-06-22 00:18] LABS: BASO % 0.2 % (0.0-1.0); HEMATOCRIT 49.9 % (42.0-52.0); HEMOGLOBIN 16.3 g/dl (13.5-17.5); IMMATURE GRANULOCYTE % 0.4 % (0-3.0); LYMPH # 1.5 10^3/uL (1.5-4.5); MEAN CORPUSCULAR HEMOGLOBIN 27.7 pg (27.0-33.0); MEAN CORPUSCULAR HGB CONC 32.7 g/dl (32.0-36.5); MEAN CORPUSCULAR VOLUME 84.9 fl (80.0-96.0); MONO # 0.8 10^3/uL (0.0-0.8); MONO % 6.1 % (0.0-5.0); NEUTROPHILS # 10.5 10^3/uL (1.8-7.7); NEUTROPHILS % 81.3 % (36.0-66.0); PLATELET COUNT, AUTOMATED 324 10^3/uL (150-450); RED BLOOD COUNT 5.88 10^6/uL (4.30-6.10); RED CELL DISTRIBUTION WIDTH 14.9 % (11.5-14.5); WHITE BLOOD COUNT 12.9 10^3/uL (4.0-10.0)
[2018-06-22] MEDS: NS 1,000 ML IV ×3 (00:22→04:24)
[2018-06-22] MEDS: METOCLOPRAMIDE INJ 10MG/2ML VIAL (J2765) IV (00:22)
[2018-06-22 00:56] LABS: ALBUMIN 4.5 GM/DL (3.2-5.2); ALBUMIN/GLOBULIN RATIO 1.15 (1.00-1.93); ALKALINE PHOSPHATASE 149 U/L (45-117); ALT/SGPT 28 U/L (12-78); ANION GAP 33 MEQ/L (8-16); AST/SGOT 29 U/L (7-37); BILIRUBIN,DIRECT 0.3 MG/DL (0.0-0.2); BILIRUBIN,TOTAL 0.8 MG/DL (0.2-1.0); BLOOD UREA NITROGEN 34 MG/DL (7-18); CALCIUM LEVEL 8.9 MG/DL (8.5-10.1); CARBON DIOXIDE LEVEL 15 MEQ/L (21-32); CHLORIDE LEVEL 81 MEQ/L (98-107); CREATININE FOR GFR 1.86 MG/DL (0.70-1.30); ETHYL ALCOHOL (ETHANOL) 0.201 % (0.000-0.010); GLOMERULAR FILTRATION RATE 42.4 (>60); GLUCOSE, FASTING 451 MG/DL (70-100); LIPASE 49 U/L (73-393); POTASSIUM SERUM 4.5 MEQ/L (3.5-5.1); SODIUM LEVEL 129 MEQ/L (136-145); TOTAL PROTEIN 8.4 GM/DL (6.4-8.2)
[2018-06-22 00:58] LABS: LACTIC ACID SEPSIS PROTOCOL 6.8 MMOL/L (0.4-2.0)
[2018-06-22] MEDS: MORPHINE 4 MG/ML 1ML VIAL/SYRINGE (J2270) IV (01:06)
[2018-06-22] MEDS ORDERED: INSULIN IV RATE CHANGE DOCUMENTATION ML/HR XX (01:30)
[2018-06-22] MEDS: HumuLIN R (REGULAR) INSULIN (NovoLIN R) **100U/ML** PER UNIT IV (02:02)
[2018-06-22 02:43] LABS: BEDSIDE GLUCOSE 395 MG/DL (70-105)
[2018-06-22] MEDS: INSULIN HUMAN REGULAR 100 UNITS in NS 99 ML IV ×2 (02:46→04:24)
[2018-06-22 02:50] LABS: MAGNESIUM LEVEL 2.3 MG/DL (1.8-2.4); PHOSPHORUS LEVEL 5.4 MG/DL (2.5-4.9)
[2018-06-22 03:31] LABS: BEDSIDE GLUCOSE 335 MG/DL (70-105)
[2018-06-22 04:05] LABS: BEDSIDE GLUCOSE 303 MG/DL (70-105)
[2018-06-22 04:11] LABS: APPEARANCE, URINE HAZY (CLEAR); BACTERIA, URINE AUTO NEGATIVE (NEGATIVE); BILIRUBIN, URINE AUTO NEGATIVE (NEGATIVE); BLOOD, URINE BLOOD NEGATIVE (NEGATIVE); COLOR, URINE YELLOW (YELLOW); GLUCOSE, URINE (UA) AUTO 3+ mg/dL (NEGATIVE); KETONE, URINE AUTO 1+ mg/dL (NEGATIVE); LEUKOCYTE ESTERASE, URINE AUTO NEGATIVE (NEGATIVE); NITRITE, URINE AUTO NEGATIVE (NEGATIVE); PROTEIN, URINE AUTO 1+ mg/dL (NEGATIVE); RBC, URINE AUTO 0 /HPF (0-3); SPECIFIC GRAVITY URINE AUTO 1.017 (1.002-1.035); SQUAMOUS EPITHELIAL CELL UR AU 0 /HPF (0-6); UROBILINOGEN, URINE AUTO 0.2 mg/dL (0.0-2.0); WBC, URINE AUTO 1 /HPF (0-3)
[2018-06-22] MEDS: ONDANSETRON 4MG/2ML VIAL (J2405) IV ×2 (04:23→17:16)
[2018-06-22 05:09] LABS: BEDSIDE GLUCOSE 233 MG/DL (70-105)
[2018-06-22] MEDS: INSULIN IV RATE CHANGE DOCUMENTATION ML/HR XX ×3 (05:10→09:00)
[2018-06-22] MEDS: LIDOCAINE 5% (LIDODERM) PATCH TD (05:19)
[2018-06-22] MEDS: POTASSIUM CHLORIDE INJ 10 MEQ in NS 1,000 ML IV (05:23)
[2018-06-22 05:44] LABS: ANION GAP 24 MEQ/L (8-16); BLOOD UREA NITROGEN 37 MG/DL (7-18); CALCIUM LEVEL 7.3 MG/DL (8.5-10.1); CARBON DIOXIDE LEVEL 19 MEQ/L (21-32); CHLORIDE LEVEL 93 MEQ/L (98-107); CREATININE FOR GFR 1.66 MG/DL (0.70-1.30); GLOMERULAR FILTRATION RATE 48.4 (>60); GLUCOSE, FASTING 248 MG/DL (70-100); POTASSIUM SERUM 3.5 MEQ/L (3.5-5.1); SODIUM LEVEL 136 MEQ/L (136-145)
[2018-06-22] MEDS: HEPARIN SOD (PORCINE) 5000 UNITS/ML VIAL SC ×3 (05:58→21:22)
[2018-06-22 06:09] LABS: BEDSIDE GLUCOSE 206 MG/DL (70-105)
[2018-06-22 06:56] LABS: BEDSIDE GLUCOSE 204 MG/DL (70-105)
[2018-06-22 07:34] LABS: PHOSPHORUS LEVEL 2.7 MG/DL (2.5-4.9); TROPONIN I 0.02 NG/ML (< 0.10)
[2018-06-22 08:03] LABS: BEDSIDE GLUCOSE 185 MG/DL (70-105)
[2018-06-22] MEDS: MULTIVITAMINS/MINERALS THERAP 1 TAB PO (08:21)
[2018-06-22] MEDS: PRAVASTATIN 20 MG TAB PO (08:21)
[2018-06-22] MEDS: THIAMINE 100 MG TAB PO ×2 (08:21→21:22)
[2018-06-22] MEDS: D5W/0.45% SODIUM CHLORIDE 1,000 ML IV ×2 (08:21→09:04)
[2018-06-22] MEDS: cloNIDine 0.1 MG TAB PO ×3 (08:22→21:22)
[2018-06-22] MEDS: FOLIC ACID 1 MG TAB PO (08:22)
[2018-06-22] MEDS: ASPIRIN 81 MG ENTERIC TAB PO (08:22)
[2018-06-22] MEDS: PANTOPRAZOLE 40MG TAB (PROTONIX) PO (08:22)
[2018-06-22] MEDS: METOPROLOL TART 50 MG TAB PO ×3 (08:23→21:22)
[2018-06-22] MEDS: NICOTINE 7 MG/24 HR TRANSDERMAL TD (08:23)
[2018-06-22 08:53] LABS: ANION GAP 17 MEQ/L (8-16); BLOOD UREA NITROGEN 33 MG/DL (7-18); CALCIUM LEVEL 7.7 MG/DL (8.5-10.1); CARBON DIOXIDE LEVEL 22 MEQ/L (21-32); CHLORIDE LEVEL 97 MEQ/L (98-107); CREATININE FOR GFR 1.28 MG/DL (0.70-1.30); GLOMERULAR FILTRATION RATE > 60.0 (>60); GLUCOSE, FASTING 185 MG/DL (70-100); POTASSIUM SERUM 3.9 MEQ/L (3.5-5.1); SODIUM LEVEL 136 MEQ/L (136-145)
[2018-06-22 09:05] LABS: BEDSIDE GLUCOSE 240 MG/DL (70-105)
[2018-06-22 10:07] LABS: BEDSIDE GLUCOSE 234 MG/DL (70-105)
[2018-06-22 11:06] LABS: BEDSIDE GLUCOSE 243 MG/DL (70-105)
[2018-06-22 12:21] LABS: BEDSIDE GLUCOSE 244 MG/DL (70-105)
[2018-06-22 12:41] LABS: ANION GAP 14 MEQ/L (8-16); BLOOD UREA NITROGEN 28 MG/DL (7-18); CALCIUM LEVEL 7.5 MG/DL (8.5-10.1); CARBON DIOXIDE LEVEL 26 MEQ/L (21-32); CHLORIDE LEVEL 96 MEQ/L (98-107); CREATININE FOR GFR 1.23 MG/DL (0.70-1.30); GLOMERULAR FILTRATION RATE > 60.0 (>60); GLUCOSE, FASTING 216 MG/DL (70-100); POTASSIUM SERUM 3.7 MEQ/L (3.5-5.1); SODIUM LEVEL 136 MEQ/L (136-145)
[2018-06-22] MEDS ORDERED: DEXTROSE 50% 50 ML SYRINGE IV (13:00)
[2018-06-22] MEDS ORDERED: GLUCAGON FOR INJ 1 MG VIAL (J1610) SC (13:00)
[2018-06-22] MEDS ORDERED: GLUCOSE 4 GM CHEW TABLET PO (13:00)
[2018-06-22] MEDS: LEVEMIR (INSULIN DETEMIR) 1 UNITS/0.01ML SC (13:33)
[2018-06-22] MEDS: **NOTE PATIENT COMMENT** MISC XX (17:00)
[2018-06-22 17:08] LABS: BEDSIDE GLUCOSE 289 MG/DL (70-105)
[2018-06-22] MEDS: HumaLOG INSULIN (NovoLOG) PER UNIT SC ×2 (17:16→21:21)
[2018-06-22 19:06] LABS: ANION GAP 15 MEQ/L (8-16); BLOOD UREA NITROGEN 26 MG/DL (7-18); CALCIUM LEVEL 8.2 MG/DL (8.5-10.1); CARBON DIOXIDE LEVEL 24 MEQ/L (21-32); CHLORIDE LEVEL 96 MEQ/L (98-107); CREATININE FOR GFR 1.19 MG/DL (0.70-1.30); GLOMERULAR FILTRATION RATE > 60.0 (>60); GLUCOSE, FASTING 231 MG/DL (70-100); POTASSIUM SERUM 3.8 MEQ/L (3.5-5.1); SODIUM LEVEL 135 MEQ/L (136-145)
[2018-06-22 21:10] LABS: BEDSIDE GLUCOSE 233 MG/DL (70-105)
[2018-06-23 05:41] LABS: BEDSIDE GLUCOSE 199 MG/DL (70-105)
[2018-06-23] MEDS: HEPARIN SOD (PORCINE) 5000 UNITS/ML VIAL SC ×3 (05:49→22:23)
[2018-06-23] MEDS: ONDANSETRON 4MG/2ML VIAL (J2405) IV (05:49)
[2018-06-23 07:44] LABS: HEMATOCRIT 38.6 % (42.0-52.0); MEAN CORPUSCULAR HEMOGLOBIN 27.9 pg (27.0-33.0); MEAN CORPUSCULAR HGB CONC 32.9 g/dl (32.0-36.5); MEAN CORPUSCULAR VOLUME 84.6 fl (80.0-96.0); PLATELET COUNT, AUTOMATED 149 10^3/uL (150-450); RED BLOOD COUNT 4.56 10^6/uL (4.30-6.10); RED CELL DISTRIBUTION WIDTH 14.7 % (11.5-14.5); WHITE BLOOD COUNT 6.2 10^3/uL (4.0-10.0)
[2018-06-23 07:49] LABS: HEMOGLOBIN 12.7 g/dl (13.5-17.5)
[2018-06-23 08:13] LABS: ANION GAP 12 MEQ/L (8-16); BLOOD UREA NITROGEN 21 MG/DL (7-18); CALCIUM LEVEL 8.5 MG/DL (8.5-10.1); CARBON DIOXIDE LEVEL 27 MEQ/L (21-32); CHLORIDE LEVEL 95 MEQ/L (98-107); CREATININE FOR GFR 0.89 MG/DL (0.70-1.30); GLOMERULAR FILTRATION RATE > 60.0 (>60); GLUCOSE, FASTING 254 MG/DL (70-100); POTASSIUM SERUM 3.6 MEQ/L (3.5-5.1); SODIUM LEVEL 134 MEQ/L (136-145)
[2018-06-23 08:16] LABS: MAGNESIUM LEVEL 2.3 MG/DL (1.8-2.4)
[2018-06-23 08:16] LABS: PHOSPHORUS LEVEL 1.9 MG/DL (2.5-4.9)
[2018-06-23] MEDS: HumaLOG INSULIN (NovoLOG) PER UNIT SC ×4 (09:19→20:40)
[2018-06-23] MEDS: PRAVASTATIN 20 MG TAB PO (09:19)
[2018-06-23] MEDS: METOPROLOL TART 50 MG TAB PO ×2 (09:20→20:40)
[2018-06-23] MEDS: MULTIVITAMINS/MINERALS THERAP 1 TAB PO (09:20)
[2018-06-23] MEDS: THIAMINE 100 MG TAB PO ×2 (09:20→20:38)
[2018-06-23] MEDS: FOLIC ACID 1 MG TAB PO (09:20)
[2018-06-23] MEDS: ASPIRIN 81 MG ENTERIC TAB PO (09:20)
[2018-06-23] MEDS: cloNIDine 0.1 MG TAB PO ×2 (09:20→20:38)
[2018-06-23] MEDS: PANTOPRAZOLE 40MG TAB (PROTONIX) PO ×2 (09:20→20:38)
[2018-06-23] MEDS: NICOTINE 7 MG/24 HR TRANSDERMAL TD (09:21)
[2018-06-23 11:23] LABS: BEDSIDE GLUCOSE 396 MG/DL (70-105)
[2018-06-23] MEDS: SUCRALFATE 1 GM TAB PO ×3 (11:39→20:37)
[2018-06-23] MEDS: NEUTRA-PHOS 1.25 GM PACKET PO ×2 (11:39→20:37)
[2018-06-23] MEDS: CALCIUM CARBONATE 500 MG CHEW U/D PO ×2 (11:39→18:42)
[2018-06-23] MEDS: NS 1,000 ML IV (11:40)
[2018-06-23 16:29] LABS: BEDSIDE GLUCOSE 285 MG/DL (70-105)
[2018-06-23 19:52] LABS: BEDSIDE GLUCOSE 335 MG/DL (70-105)
[2018-06-23] MEDS: OXAZEPAM 15 MG CAP PO (22:23)
[2018-06-23] MEDS: LEVEMIR (INSULIN DETEMIR) 1 UNITS/0.01ML SC (22:47)
[2018-06-23] MEDS: LORazepam 2 MG TAB PO (23:05)
[2018-06-24] MEDS: NS 1,000 ML IV (00:24)
[2018-06-24 06:10] LABS: HEMATOCRIT 39.2 % (42.0-52.0); HEMOGLOBIN 12.9 g/dl (13.5-17.5); MEAN CORPUSCULAR HEMOGLOBIN 27.3 pg (27.0-33.0); MEAN CORPUSCULAR HGB CONC 32.9 g/dl (32.0-36.5); MEAN CORPUSCULAR VOLUME 82.9 fl (80.0-96.0); PLATELET COUNT, AUTOMATED 133 10^3/uL (150-450); RED BLOOD COUNT 4.73 10^6/uL (4.30-6.10); RED CELL DISTRIBUTION WIDTH 13.9 % (11.5-14.5); WHITE BLOOD COUNT 3.6 10^3/uL (4.0-10.0)
[2018-06-24] MEDS: HEPARIN SOD (PORCINE) 5000 UNITS/ML VIAL SC (06:12)
[2018-06-24 06:31] LABS: ANION GAP 6 MEQ/L (8-16); BLOOD UREA NITROGEN 13 MG/DL (7-18); CALCIUM LEVEL 8.4 MG/DL (8.5-10.1); CARBON DIOXIDE LEVEL 29 MEQ/L (21-32); CHLORIDE LEVEL 104 MEQ/L (98-107); CREATININE FOR GFR 0.72 MG/DL (0.70-1.30); GLOMERULAR FILTRATION RATE > 60.0 (>60); GLUCOSE, FASTING 242 MG/DL (70-100); POTASSIUM SERUM 3.3 MEQ/L (3.5-5.1); SODIUM LEVEL 139 MEQ/L (136-145)
[2018-06-24 08:27] LABS: PHOSPHORUS LEVEL 2.6 MG/DL (2.5-4.9)
[2018-06-24] MEDS: NEUTRA-PHOS 1.25 GM PACKET PO (09:19)
[2018-06-24] MEDS: NICOTINE 7 MG/24 HR TRANSDERMAL TD (09:19)
[2018-06-24] MEDS: HumaLOG INSULIN (NovoLOG) PER UNIT SC ×2 (09:20→13:13)
[2018-06-24] MEDS: METOPROLOL TART 50 MG TAB PO (09:20)
[2018-06-24] MEDS: THIAMINE 100 MG TAB PO (09:20)
[2018-06-24] MEDS: ASPIRIN 81 MG ENTERIC TAB PO (09:21)
[2018-06-24] MEDS: PANTOPRAZOLE 40MG TAB (PROTONIX) PO (09:21)
[2018-06-24] MEDS: MULTIVITAMINS/MINERALS THERAP 1 TAB PO (09:21)
[2018-06-24] MEDS: SUCRALFATE 1 GM TAB PO ×2 (09:21→13:13)
[2018-06-24] MEDS: FOLIC ACID 1 MG TAB PO (09:21)
[2018-06-24] MEDS: PRAVASTATIN 20 MG TAB PO (09:21)
[2018-06-24] MEDS: LEVEMIR (INSULIN DETEMIR) 1 UNITS/0.01ML SC (09:22)
[2018-06-24] MEDS: cloNIDine 0.1 MG TAB PO (09:22)
[2018-06-24] MEDS: CALCIUM CARBONATE 500 MG CHEW U/D PO ×2 (09:23→13:13)
[2018-06-24 11:26] LABS: BEDSIDE GLUCOSE 339 MG/DL (70-105)
[2018-06-24] MEDS: OXAZEPAM 15 MG CAP PO (13:12)
== END 2018-06-24 15:40 | disposition home or self-care (01) | DRG 420 ==
LOC: M ED 23:32 → M ED INP 06-22 01:59 → M ICU 06-22 04:01 → M MSPAV 06-22 20:33
PROVIDERS: Internal Medicine
DX: E11.10 Type 2 diabetes mellitus with ketoacidosis without coma (principal); N17.9 Acute kidney failure, unspecified; E83.39 Other disorders of phosphorus metabolism; F10.129 Alcohol abuse with intoxication, unspecified; I10 Essential (primary) hypertension; E78.5 Hyperlipidemia, unspecified; F17.210 Nicotine dependence, cigarettes, uncomplicated; K21.9 Gastro-esophageal reflux disease without esophagitis; Z79.4 Long term (current) use of insulin; Z79.82 Long term (current) use of aspirin; Z79.899 Other long term (current) drug therapy; Z91.11 Patient's noncompliance with dietary regimen

== ENCOUNTER → 2018-06-29 | Outpatient (CLI) | payer BC ==
[2018-06-29 07:08] LABS: ESTIMATED AVERAGE GLUCOSE 243 MG/DL (60-110); HEMOGLOBIN A1c 10.1 %
[2018-06-29 07:15] LABS: ANION GAP 5 MEQ/L (8-16); BLOOD UREA NITROGEN 12 MG/DL (7-18); CALCIUM LEVEL 9.2 MG/DL (8.5-10.1); CARBON DIOXIDE LEVEL 29 MEQ/L (21-32); CHLORIDE LEVEL 106 MEQ/L (98-107); CREATININE FOR GFR 0.97 MG/DL (0.70-1.30); GLOMERULAR FILTRATION RATE > 60.0 (>60); GLUCOSE, FASTING 205 MG/DL (70-100); SODIUM LEVEL 140 MEQ/L (136-145)
== END ==
LOC: M LAB 06:19
DX: E11.65 Type 2 diabetes mellitus with hyperglycemia (principal)
CPT/HCPCS: 83036

== ENCOUNTER 2018-10-12 19:47 | Inpatient (IN) | payer BC ==
[~2018-10-12] VITALS: Ht 175.3 cm; Wt 79.8 kg
[~2018-10-12 19:47] MED LIST changes: +ASPI81CH PO; +FOLI1TAB11 PO; -FOLI1TAB4 PO; +KETO10TAB PO; -PANT40TA2 PO; +PANT40TA3 PO; -VITA50TA PO; +VITA50TA47 PO; +VITACHTA PO; +ZOFR4TAB14 PO
[2018-10-12] MEDS ORDERED: NS 1,000 ML IV ONE ×2 (20:30→22:15)
[2018-10-12 21:17] LABS: VENOUS BASE EXCESS -7.3 (-2.0-2.0); VENOUS HCO3 16.2 MEQ/L (23.0-27.0); VENOUS O2 SATURATION 93.3 % (60.0-80.0); VENOUS PARTIAL PRESSURE CO2 28.3 mmHg (38.0-50.0); VENOUS PH 7.375 UNITS (7.330-7.430); VENOUS STANDARD HCO3 18.6 MEQ/L
[2018-10-12 21:21] LABS: BASO % 0.2 % (0.0-1.0); HEMATOCRIT 48.2 % (42.0-52.0); HEMOGLOBIN 15.6 g/dl (13.5-17.5); LYMPH # 0.9 10^3/uL (1.5-4.5); LYMPH % 6.3 % (24.0-44.0); MEAN CORPUSCULAR HEMOGLOBIN 27.3 pg (27.0-33.0); MEAN CORPUSCULAR HGB CONC 32.4 g/dl (32.0-36.5); MEAN CORPUSCULAR VOLUME 84.4 fl (80.0-96.0); MONO # 0.9 10^3/uL (0.0-0.8); MONO % 5.9 % (0.0-5.0); NEUTROPHILS # 13.1 10^3/uL (1.8-7.7); PLATELET COUNT, AUTOMATED 321 10^3/uL (150-450); RED BLOOD COUNT 5.71 10^6/uL (4.30-6.10)
[2018-10-12] MEDS ORDERED: ONDANSETRON 4MG/2ML VIAL (J2405) As Ordered ONE (21:40)
[2018-10-12] MEDS ORDERED: GI COCKTAIL 50ML BTL(HYOSCYAMINE/MAALOX/LIDOCAINE VISCOUS)(1:3:1) PO ONE (21:45)
[2018-10-12] MEDS ORDERED: ONDANSETRON 4MG/2ML VIAL (J2405) IV ONE (21:45)
[2018-10-12 21:47] LABS: HEMOGLOBIN A1c 10.6 %
[2018-10-12] MEDS: MORPHINE 4 MG/ML 1ML VIAL/SYRINGE (J2270) IV PRN ×2 (21:53→22:39)
[2018-10-12 21:56] LABS: OSMOLALITY SERUM 350 MOSM/KG (275-295)
[2018-10-12] MEDS ORDERED: MORPHINE 4 MG/ML 1ML VIAL/SYRINGE (J2270) IV ONE (22:00)
[2018-10-12] MEDS ORDERED: PANTOPRAZOLE 40MG INJ (PROTONIX) (C9113) IV ONE (22:15)
[2018-10-12 22:29] LABS: ALBUMIN 4.8 GM/DL (3.2-5.2); ALT/SGPT 25 U/L (12-78); BILIRUBIN,DIRECT 0.3 MG/DL (0.0-0.2); BILIRUBIN,TOTAL 0.9 MG/DL (0.2-1.0); BLOOD UREA NITROGEN 31 MG/DL (7-18); CALCIUM LEVEL 9.8 MG/DL (8.5-10.1); CARBON DIOXIDE LEVEL 17 MEQ/L (21-32); CHLORIDE LEVEL 74 MEQ/L (98-107); CPK CREATINE PHOSPHOKINASE 147 U/L (39-308); CREATININE FOR GFR 1.53 MG/DL (0.70-1.30); ETHYL ALCOHOL (ETHANOL) 0.073 % (0.000-0.010); GLOMERULAR FILTRATION RATE 53.1 (>60); GLUCOSE, FASTING 509 MG/DL (70-100); LIPASE 96 U/L (73-393); MB/CK RELATIVE INDEX 1.63 (< OR =4); PHOSPHORUS LEVEL 6.6 MG/DL (2.5-4.9); POTASSIUM SERUM 4.2 MEQ/L (3.5-5.1); SODIUM LEVEL 130 MEQ/L (136-145); TOTAL PROTEIN 8.4 GM/DL (6.4-8.2); TROPONIN I < 0.02 NG/ML (< 0.10)
[2018-10-12] MEDS ORDERED: HumuLIN R (REGULAR) INSULIN (NovoLIN R) **100U/ML** PER UNIT IV STA (22:58)
[2018-10-12] MEDS ORDERED: NS 1,000 ML IV SCH (23:00)
[2018-10-12] MEDS ORDERED: INSULIN HUMAN REGULAR 100 UNITS in NS 99 ML IV SCH (23:08)
[2018-10-12] MEDS ORDERED: INSULIN IV RATE CHANGE DOCUMENTATION ML/HR XX SCH (23:15)
[2018-10-12 23:19] LABS: AMPHETAMINES LEVEL URINE NEGATIVE (NEGATIVE); BARBITURATES URINE NEGATIVE (NEGATIVE); BENZODIAZEPINES URINE NEGATIVE (NEGATIVE); CANNABINOIDS URINE NEGATIVE (NEGATIVE); COCAINE METABOLITE URINE NEGATIVE (NEGATIVE); METHADONE URINE NEGATIVE (NEGATIVE); OPIATES URINE POSITIVE (NEGATIVE); PHENCYCLIDINE URINE NEGATIVE (NEGATIVE)
[2018-10-12] MEDS ORDERED: MIRT45TA4 PO (23:35)
[2018-10-12] MEDS ORDERED: ONDANSETRON 4MG/2ML VIAL (J2405) IV PRN (23:45)
[2018-10-13] VITALS (11 sets, daily range): BP systolic 125–164; BP diastolic 66–89
[2018-10-13] MEDS ORDERED: INSULIN HUMAN REGULAR 100 UNITS in NS 99 ML IV SCH ×2
--- NOTE | 2018-10-13 00:20 | REP ---
Clinical: Diabetic ketoacidosis . Comparison: 06/22/2018 . Findings: The mediastinum and cardiac silhouette are stable and within normal limits for portable technique. The lung pulido are clear without acute consolidation, effusion, or pneumothorax. Skeletal structures are intact. Impression: No acute cardiopulmonary process appreciated. Electronically Signed by Hiram Lyons MD 10/13/2018 12:11 A
--- NOTE | 2018-10-13 01:04 | REPVR ---
EXAM: CT Abdomen and Pelvis Without Contrast EXAM DATE/TIME: 10/12/2018 11:48 PM CLINICAL HISTORY: 43 years old, male; Pain; Abdominal pain; Generalized; Additional info: Epigastric pain, arf TECHNIQUE: Axial computed tomography images of the abdomen and pelvis without contrast. All CT scans at this facility use at least one of these dose optimization techniques: automated exposure control; mA and/or kV adjustment per patient size (includes targeted exams where dose is matched to clinical indication); or iterative reconstruction. Coronal and sagittal reformatted images were created and reviewed. COMPARISON: CT ABD PELVIS W/O CONTRAST 03/04/2018 10:02 AM Study limitations: Evaluation for mass, inflammatory change, including bowel wall/fold thickening, viscera, and vasculature, is suboptimal without contrast. FINDINGS: LUNG BASES: Mild dependent atelectasis. VASCULAR: There is coronary artery disease. No abdominal aortic aneurysm or retroperitoneal hematoma. There is aorto iliac and femoral calcific atherosclerosis. PERITONEAL : No free air or free fluid. GI: The visualized distal esophagus appears concentrically thickened walled, extending above the level of imaging. There may be trace amount of periesophageal fluid also extending above the level of imaging. There is fluid filled distention of the distal esophagus up to 3.7 cm in diameter. Findings could be secondary to esophagitis, hiatal hernia and/or gastroesophageal reflux. To complete evaluation of the esophagus, consider endoscopy or esophagram. The stomach is moderately distended, up to 17.6 cm in diameter with an air-fluid level. This could be secondary to recently ingested fluid , gastroparesis, or developing gastric outlet obstruction. The distal stomach is not sufficiently distended to evaluate wall thickening, exclude fold thickening or mucosal abnormality. No perigastric inflammatory stranding is seen. Proximal small bowel loops are not sufficiently distended and secondary to lack of contrast, fold thickening cannot be evaluated. Any symptoms of gastroenteritis to be correlated clinically. No focal mesenteric inflammatory stranding is seen. Small nonspecific mesenteric lymph nodes are noted. Segments of small bowel within the pelvis are slightly distended with gas, up to 3 cm in diameter. No focal point of transition is seen. There is some fecal appearing material within a segment of small bowel in the right lower quadrant. Distalmost ileal loops appear nondilated. Differential for this appearance may be secondary to ileus, peristalsis, stasis or mild/partial or developing obstruction. For further assessment, consideration could be given to small bowel follow-through. Scattered fecal material and gas within portions of the colon. No pericolonic inflammatory stranding. Portions of the colon appear slightly thick walled, particularly along the transverse colon which could be secondary to underdistention artifact, mild colitis would be difficult to exclude by this exam. No evidence of acute diverticulitis. The appendix does not appear to be inflamed. HEPATOBILIARY, PANCREAS, SPLEEN: Sagittal hepatic length is 20.1 cm. Hepatic attenuation is consistent with fatty infiltration. Slightly distended gallbladder. No calcified gallstones. No pericholecystic fluid or stranding. Evaluation of the pancreatic parenchyma is suboptimal, secondary to lack of contrast differentiation. The pancreatic tail appears slightly hypoplastic. Punctate pancreatic calcifications are seen at the head, similar to the prior exam and may be the sequela of chronic pancreatitis. There is a slightly complex hypodense 5 cm cystic lesion at the body of the pancreas with some internal soft tissue density, similar to the prior exam and may represent a slightly complex pancreatic pseudocyst. Consider further characterization by nonemergent contrast enhanced pancreatic protocol CT if not already done to exclude any suspicious soft tissue enhancement. No acute appearing pancreatic inflammation is seen. Spleen not enlarged. ADRENALS, KIDNEYS, BLADDER, RETROPERITONEAL: Adrenals within normal limits. No hydronephrosis. Mild nonspecific perinephric stranding. No renal calculi. Mildly distended urinary bladder. No perivesical stranding. Mild enlargement of the prostate minimally protruding into the base of the bladder. Clinical followup is advised. MUSCULOSKELETAL: Mild degenerative changes of the spine. IMPRESSION: Study limitations discussed above. Thickwalled appearance of the esophagus incompletely evaluated and extending above the level of imaging. This and other gastrointestinal findings which are discussed above, to be correlated clinically. Recommendations discussed above. No free air, free fluid or focal mesenteric inflammation. Hepatic enlargement and fatty infiltration. Sequela of chronic pancreatitis again noted. Complex appearing 5 cm cystic lesion along the anterior pancreatic body appears similar to the prior exam. Further characterization however is limited by this exam. Findings and recommendations discussed above. Other incidental and nonemergent findings discussed above. Electronically signed by: Bismark Harkins On 10/13/2018 01:03:57 AM
[2018-10-13 02:05] LABS: VENOUS BASE EXCESS -3.2 (-2.0-2.0); VENOUS HCO3 19.4 MEQ/L (23.0-27.0); VENOUS O2 SATURATION 98.4 % (60.0-80.0); VENOUS PARTIAL PRESSURE CO2 28.5 mmHg (38.0-50.0); VENOUS PH 7.451 UNITS (7.330-7.430); VENOUS STANDARD HCO3 21.9 MEQ/L; VENOUS TOTAL CO2 20.3 MEQ/L (24.0-28.0)
[2018-10-13] MEDS: INSULIN IV RATE CHANGE DOCUMENTATION ML/HR XX SCH ×5 (02:16→17:19)
--- NOTE | 2018-10-13 02:26 | HPEPDOC ---
[facility] Medical History & Physical Date of Admission Oct 12, 2018 Other Provider Dictating/admitting: Rabia Dumont M.D. Attending Physician: JUAN BRUMFIELD MD History and Physical CHIEF COMPLAINT: Abdominal pain with nausea and vomiting 1 day HISTORY OF PRESENT ILLNESS: Patient is a 43-year-old man. He has medical history significant for insulin-dependent diabetes mellitus, hypertension, hyperl ipidemia, acid reflux alcohol abuse. Patient comes in frequently with similar presentation and evaluated as a case of DKA. He has been been binge drinking for a couple of days until he started having nausea, vomiting with abdominal pains. He describes his vomitus is nonbloody, nonbilious contains recently ingested food. The abdominal pain is nonradiating 4-5/10 in intensity. He denies any associated fever or chills, shortness of breath, hematemesis, hemoptysis, chest pain, palpitations. He also denies any change in his bowel or urinary habits. He says at the onset of this symptom, he had checked his serum glucose at home which recordings indicating that his serum glucose was high even after use of insulin 2 at home. Patient was evaluated in the emergency room with elevated glucose, as well as low-sodium, low bicarbonate and anion gap metabolic acidosis, which is in keeping with DKA. Hospitalist was called in to admit patient PAST MEDICAL HISTORY: Per HPI PAST SURGICAL HISTORY: 1. Vasectomy. SOCIAL HISTORY: Smokes half a pack of cigarettes per day, excessive use of alcohol, denies illicit drug use. FAMILY HISTORY: Heart disease and thyroid disease runs in the family. ALLERGIES: Please see below. REVIEW OF SYSTEMS: He denies any associated fever or chills, shortness of breath, hematemesis, hemoptysis, chest pain, palpitations. He also denies any change in his bowel or urinary habits. Other systems reviewed, negative. 12 point review of system was done. HOME MEDICATIONS: Please see below. PHYSICAL EXAMINATION: VITAL SIGNS: Temperature 100.9, pulse 123, respiratory rate 18, blood pressure 140/86, pulse oximetry 95% on room air. GENERAL APPEARANCE: I see a young man, lying calmly in bed, not in any apparent distress. He is not pale, anicteric and afebrile HEENT: Atraumatic. Neck: Supple. LUNGS: Clear to auscultation bilaterally. CARDIOVASCULAR: S1 and 2 heard, no murmurs, rubs or gallops. ABDOMEN: Obese, soft, mild generalized tenderness, not distended. Bowel sounds normoactive. MUSCULOSKELETAL: Apparently within normal limits. EXTREMITIES: No pedal edema, 2+ bilateral pedal pulses noted. NEUROLOGICAL: Awake, alert, oriented 3. PSYCHIATRIC: Normal affect LABORATORY DATA: See below. IMAGING: Chest x-ray: No acute cardiopulmonary process. CT abdomen and pelvis noncontrast: Small bowel with differential features of IUs peristalsis stasis or mild/partial or developing obstruction. Pancreatic pseudocyst (Complex). MICROBIOLOGY: Please see below. ASSESSMENT: Patient is 43-year-old man with above-mentioned comorbid history comes in frequently for treatment of DKA. Physical exam reveals mild generalized abdominal tenderness with deep palpation imaging shows small bowel with features of either ileus stasis, partial/developing obstruction with complex pancreatic pseudocyst. Labs reveal elevated serum glucose, low serum sodium anion gap metabolic acidosis and low bicarbonate, although with normal venous gas. DIAGNOSES: 1. DKA. Likely secondary to medication noncompliance 2. RAYMOND . PLAN: 1. I will admit patient to the ICU under care of Dr. Brumfield. 2. DKA. I will continue glycemic control with DKA protocol of treatment/nothing by mouth except meds. IV Zofran when necessary nausea and vomiting. 3. Will continue volume expansion. Anticipate a care resolution. 4. Hold all nephrotoxic's for now. 5. On account of CT abdomen and pelvic findings. I will advise that patient receives CT abdomen and pelvis with contrast before discharge home. 6. Follow daily chemistry and CBC after patient has achieved anion gap closure. 7. GI prophylaxis. Pantoprazole. 8. DVT prophylaxis, TEDs. 9. History of alcohol abuse. We'll send serum alcohol place patient on thiamine, folic acid and C were assessment. 10. Further treatment will remain per patient's clinical course. Vital Signs Vital Signs Date Time Temp Pulse Resp B/P (MAP) Pulse Ox O2 Delivery O2 Flow Rate FiO2 10/12/18 23:12 16 10/12/18 22:41 122 150/88 (108) 98 Room Air 10/12/18 19:48 96.9 Laboratory Data Labs 24H Laboratory Tests 2 10/12/18 20:41: Anion Gap 39H, Glomerular Filtration Rate 53.1L, Osmolality 350H, Calcium Level 9.8, Phosphorus Level 6.6H, Aspartate Amino Transf (AST/SGOT) 21, Alanine Aminotransferase (ALT/SGPT) 25, Alkaline Phosphatase 123H, Total Bilirubin 0.9, Direct Bilirubin 0.3H, Total Creatine Kinase 147, Creatine Kinase MB 2.0, Creatine Kinase MB Relative Index 1.63, Troponin I < 0.02, Total Protein 8.4H, Albumin 4.8, Albumin/Globulin Ratio 1.33, Lipase 96, Ethyl Alcohol Level 0.073H, B-Hydroxybutyrate 40.00H 10/12/18 21:04: 10/12/18 21:08: Immature Granulocyte % (Auto) 0.6, White Blood Count 15.0H, Red Blood Count 5.71, Hemoglobin 15.6, Hematocrit 48.2, Mean Corpuscular Volume 84.4, Mean Corpuscular Hemoglobin 27.3, Mean Corpuscular Hemoglobin Concent 32.4, Red Cell Distribution Width 15.3H, Platelet Count 321, Neutrophils (%) (Auto) 87.0H, Lymphocytes (%) (Auto) 6.3L, Monocytes (%) (Auto) 5.9H, Eosinophils (%) (Auto) 0.0, Basophils (%) (Auto) 0.2, Neutrophils # (Auto) 13.1H, Lymphocytes # (Auto) 0.9L, Monocytes # (Auto) 0.9H, Eosinophils # (Auto) 0.0, Basophils # (Auto) 0.0, Nucleated Red Blood Cells % (auto) 0.0, Blood Gas Bicarbonate Standard 18.6, Venous Blood pH 7.375, Venous Blood Partial Pressure CO2 28.3L, Venous Blood Partial Pressure O2 75.0H, Venous Blood Total Carbon Dioxide 17.0L, Venous Blood HCO3 16.2L, Venous Blood Oxygen Saturation 93.3H, Venous Blood Base Excess - 7.3L, Estimated Mean Plasma Glucose 258H, Hemoglobin A1c 10.6 10/12/18 21:35: Bedside Glucose (Misc Panel) 583*H 10/12/18 22:46: Urine Color STRAW, Urine Appearance CLEAR, Urine pH 5.0, Urine Specific [place] 1.015, Urine Protein NEGATIVE, Urine Glucose (UA) 3+H, Urine Ketones 2+H, Urine Blood NEGATIVE, Urine Nitrite NEGATIVE, Urine Bilirubin NEGATIVE, Urine Urobilinogen 0.2, Urine Leukocyte Esterase NEGATIVE, Urine WBC (Auto) 0, Urine RBC (Auto) 0, Urine Hyaline Casts (Auto) 3, Urine Bacteria (Auto) NEGATIVE, Urine Squamous Epithelial Cells 0, Urine Sperm (Auto) , Urine Amphetamines Screen NEGATIVE, Urine Benzodiazepines Screen NEGATIVE, Urine Opiates Screen POSITIVEH, Urine Methadone Screen NEGATIVE, Urine Barbiturates Screen NEGATIVE, Urine Phencyclidine Screen NEGATIVE, Urine Cocaine Metabolite Screen NEGATIVE, Urine Cannabinoids Screen NEGATIVE CBC/BMP Laboratory Tests 10/12/18 20:41 10/12/18 21:08 Red Blood Count 5.71, Mean Corpuscular Volume 84.4, Mean Corpuscular Hemoglobin 27.3, Mean Corpuscular Hemoglobin Concent 32.4, Red Cell Distribution Width 15.3 H, Neutrophils (%) (Auto) 87.0 H, Lymphocytes (%) (Auto) 6.3 L, Monocytes (%) (Auto) 5.9 H, Eosinophils (%) (Auto) 0.0, Basophils (%) (Auto) 0.2, Neutrophils # (Auto) 13.1 H, Lymphocytes # (Auto) 0.9 L, Monocytes # (Auto) 0.9 H, Eosinophils # (Auto) 0.0, Basophils # (Auto) 0.0 Microbiology Microbiology 10/12/18 Blood Culture, Received Pending 10/12/18 Blood Culture, Received Pending Home Medications Scheduled (Aspirin) 81 Mg Chw, 81 MG PO DAILY Clonidine Hcl (Catapres) 0.1 Mg Tab, 0.1 MG PO BID Dapagliflozin Propanediol (Farxiga) 10 Mg Tab, 5 MG PO DAILY Folic Acid (Folic Acid) 1 Mg Tab, 1 MG PO DAILY Insulin Aspart (Novolog) 100 U/Ml Inj, 1 DOSE SC AC PER SLIDING SCALE Insulin Glargine (Lantus Solostar) 100 Unit/Ml Inj, 32 UNITS SC BID Metformin Hydrochloride (Metformin HCl ER) 500 Mg Tab, 2,000 MG PO DAILY Metoprolol Tartrate (Metoprolol Tartrate) 100 Mg Tab, 50 MG PO BID Mirtazapine (Mirtazapine) 45 Mg Tab, 45 MG PO QHS Multivitamins Chewable *[facility] STOCKED* (Animal Shapes with C & FA *[facility] STOCKED*) 1 Tab Chew, 2 TAB PO DAILY Pantoprazole Sodium (Pantoprazole Sodium) 40 Mg Tab, 40 MG PO DAILY Pravastatin Sodium (Pravachol) 20 Mg Tab, 20 MG PO DAILY Ramipril (Altace) 2.5 Mg Cap, 2.5 MG PO DAILY Thiamine HCl (Vitamin B1) 100 Mg Tab, 100 MG PO DAILY Allergies Coded Allergies: No Known Drug Allergy (Verified Allergy, Unknown, 12/09/12) RABIA DUMONT MD Oct 12, 2018 23:27
[2018-10-13] MEDS ORDERED: LORazepam 2 MG TAB PO PRN (02:30)
[2018-10-13] MEDS: KCL 20MEQ in NS 1000ML 1,000 ML IV SCH ×3 (02:34→06:22)
[2018-10-13 02:41] LABS: ALBUMIN 3.8 GM/DL (3.2-5.2); ALT/SGPT 26 U/L (12-78); BILIRUBIN,TOTAL 0.5 MG/DL (0.2-1.0); BLOOD UREA NITROGEN 29 MG/DL (7-18); CARBON DIOXIDE LEVEL 22 MEQ/L (21-32); CHLORIDE LEVEL 88 MEQ/L (98-107); CREATININE FOR GFR 1.39 MG/DL (0.70-1.30); GLOMERULAR FILTRATION RATE 59.4 (>60); GLUCOSE, FASTING 317 MG/DL (70-100); MAGNESIUM LEVEL 2.3 MG/DL (1.8-2.4); POTASSIUM SERUM 3.6 MEQ/L (3.5-5.1); SODIUM LEVEL 135 MEQ/L (136-145); TOTAL PROTEIN 6.7 GM/DL (6.4-8.2)
[2018-10-13] MEDS: OXAZEPAM 10 MG CAP PO PRN (05:00)
[2018-10-13 05:05] LABS: BASO % 0.2 % (0.0-1.0); HEMATOCRIT 38.6 % (42.0-52.0); LYMPH # 1.9 10^3/uL (1.5-4.5); LYMPH % 17.5 % (24.0-44.0); MEAN CORPUSCULAR HGB CONC 33.2 g/dl (32.0-36.5); MEAN CORPUSCULAR VOLUME 81.4 fl (80.0-96.0); MONO # 1.8 10^3/uL (0.0-0.8); MONO % 16.4 % (0.0-5.0); NEUTROPHILS # 7.1 10^3/uL (1.8-7.7); NEUTROPHILS % 65.5 % (36.0-66.0); RED BLOOD COUNT 4.74 10^6/uL (4.30-6.10); WHITE BLOOD COUNT 10.9 10^3/uL (4.0-10.0)
[2018-10-13 05:13] LABS: HEMOGLOBIN 12.8 g/dl (13.5-17.5); PLATELET COUNT, AUTOMATED 219 10^3/uL (150-450)
[2018-10-13 05:28] LABS: ALBUMIN 3.5 GM/DL (3.2-5.2); ALT/SGPT 24 U/L (12-78); BILIRUBIN,TOTAL 0.5 MG/DL (0.2-1.0); BLOOD UREA NITROGEN 27 MG/DL (7-18); CALCIUM LEVEL 7.7 MG/DL (8.5-10.1); CARBON DIOXIDE LEVEL 22 MEQ/L (21-32); CHLORIDE LEVEL 91 MEQ/L (98-107); CREATININE FOR GFR 1.27 MG/DL (0.70-1.30); GLOMERULAR FILTRATION RATE > 60.0 (>60); GLUCOSE, FASTING 278 MG/DL (70-100); SODIUM LEVEL 132 MEQ/L (136-145); TOTAL PROTEIN 6.5 GM/DL (6.4-8.2)
[2018-10-13 06:02] LABS: TROPONIN I < 0.02 NG/ML (< 0.10)
[2018-10-13 08:48] LABS: ALBUMIN 3.4 GM/DL (3.2-5.2); ALT/SGPT 23 U/L (12-78); BILIRUBIN,TOTAL 0.5 MG/DL (0.2-1.0); BLOOD UREA NITROGEN 27 MG/DL (7-18); CALCIUM LEVEL 7.8 MG/DL (8.5-10.1); CARBON DIOXIDE LEVEL 27 MEQ/L (21-32); CHLORIDE LEVEL 95 MEQ/L (98-107); CREATININE FOR GFR 1.24 MG/DL (0.70-1.30); GLOMERULAR FILTRATION RATE > 60.0 (>60); GLUCOSE, FASTING 222 MG/DL (70-100); POTASSIUM SERUM 4.2 MEQ/L (3.5-5.1); SODIUM LEVEL 134 MEQ/L (136-145); TOTAL PROTEIN 6.4 GM/DL (6.4-8.2)
[2018-10-13] MEDS ORDERED: FOLIC ACID 1 MG TAB PO SCH (09:00)
[2018-10-13] MEDS ORDERED: MULTIVITAMINS/MINERALS THERAP 1 TAB PO SCH (09:00)
[2018-10-13] MEDS ORDERED: FOLIC ACID 1 MG in NS 50 ML IV SCH (09:00)
[2018-10-13] MEDS ORDERED: THIAMINE 100 MG TAB PO SCH (09:00)
[2018-10-13] MEDS: KCL 20MEQ IN D5/NS 1000ML 1,000 ML IV SCH ×3 (09:30→17:15)
[2018-10-13 11:34] LABS: ALBUMIN 3.2 GM/DL (3.2-5.2); ALT/SGPT 21 U/L (12-78); BILIRUBIN,TOTAL 0.6 MG/DL (0.2-1.0); BLOOD UREA NITROGEN 27 MG/DL (7-18); CALCIUM LEVEL 7.6 MG/DL (8.5-10.1); CARBON DIOXIDE LEVEL 28 MEQ/L (21-32); CHLORIDE LEVEL 96 MEQ/L (98-107); CREATININE FOR GFR 1.15 MG/DL (0.70-1.30); GLOMERULAR FILTRATION RATE > 60.0 (>60); GLUCOSE, FASTING 258 MG/DL (70-100); POTASSIUM SERUM 4.1 MEQ/L (3.5-5.1); SODIUM LEVEL 134 MEQ/L (136-145); TOTAL PROTEIN 5.9 GM/DL (6.4-8.2)
[2018-10-13 14:38] LABS: BLOOD UREA NITROGEN 27 MG/DL (7-18); CALCIUM LEVEL 7.5 MG/DL (8.5-10.1); CARBON DIOXIDE LEVEL 27 MEQ/L (21-32); CHLORIDE LEVEL 98 MEQ/L (98-107); CREATININE FOR GFR 1.12 MG/DL (0.70-1.30); GLOMERULAR FILTRATION RATE > 60.0 (>60); GLUCOSE, FASTING 295 MG/DL (70-100); SODIUM LEVEL 133 MEQ/L (136-145)
[2018-10-13] MEDS ORDERED: E-Z-HD 98% w/w 340GM SUSP BTL As Ordered ONE (15:14)
[2018-10-13] MEDS ORDERED: E-Z-GAS II EFFERVESCENT PACKET (SODIUM BICARB./CITRIC ACID/SIMETHICONE) As Ordered ONE (15:14)
[2018-10-13] MEDS ORDERED: E-Z-PAQUE 96% w/w SUSP 176GM BTL As Ordered ONE (15:14)
[2018-10-13] MEDS: LEVEMIR (INSULIN DETEMIR) 1 UNITS/0.01ML SC SCH ×2 (15:34→21:00)
[2018-10-13] MEDS: PRAVASTATIN 20 MG TAB PO SCH (16:57)
[2018-10-13 17:23] LABS: BLOOD UREA NITROGEN 25 MG/DL (7-18); CALCIUM LEVEL 7.6 MG/DL (8.5-10.1); CARBON DIOXIDE LEVEL 28 MEQ/L (21-32); CHLORIDE LEVEL 98 MEQ/L (98-107); CREATININE FOR GFR 1.09 MG/DL (0.70-1.30); GLOMERULAR FILTRATION RATE > 60.0 (>60); GLUCOSE, FASTING 306 MG/DL (70-100); POTASSIUM SERUM 3.8 MEQ/L (3.5-5.1); SODIUM LEVEL 135 MEQ/L (136-145)
[2018-10-13] MEDS ORDERED: GLUCOSE 4 GM CHEW TABLET PO PRN (18:00)
[2018-10-13] MEDS ORDERED: GLUCAGON FOR INJ 1 MG VIAL (J1610) SC PRN (18:00)
[2018-10-13] MEDS ORDERED: DEXTROSE 50% 50 ML SYRINGE IV PRN (18:00)
[2018-10-13] MEDS: HumaLOG INSULIN (NovoLOG) PER UNIT SC SCH ×2 (18:12→21:00)
[2018-10-13 20:19] LABS: BLOOD UREA NITROGEN 22 MG/DL (7-18); CALCIUM LEVEL 7.8 MG/DL (8.5-10.1); CARBON DIOXIDE LEVEL 29 MEQ/L (21-32); CHLORIDE LEVEL 98 MEQ/L (98-107); CREATININE FOR GFR 0.95 MG/DL (0.70-1.30); GLOMERULAR FILTRATION RATE > 60.0 (>60); GLUCOSE, FASTING 182 MG/DL (70-100); POTASSIUM SERUM 3.3 MEQ/L (3.5-5.1); SODIUM LEVEL 134 MEQ/L (136-145)
[2018-10-13] MEDS ORDERED: PANTOPRAZOLE 40MG INJ (PROTONIX) (C9113) IV SCH (21:00)
[2018-10-13] MEDS ORDERED: POTASSIUM CHLORIDE 10 MEQ SR TABLET PO ONE (21:00)
[2018-10-13] MEDS: MIRTAZAPINE 15 MG TAB PO SCH (21:48)
[2018-10-14] VITALS: BP 138/86
[2018-10-14] MEDS: OXAZEPAM 10 MG CAP PO PRN (00:12)
[2018-10-14 04:00] VITALS: BP 136/89
[2018-10-14 05:02] LABS: HEMATOCRIT 37.7 % (42.0-52.0); HEMOGLOBIN 12.4 g/dl (13.5-17.5); MEAN CORPUSCULAR HEMOGLOBIN 27.1 pg (27.0-33.0); MEAN CORPUSCULAR HGB CONC 32.9 g/dl (32.0-36.5); MEAN CORPUSCULAR VOLUME 82.3 fl (80.0-96.0); PLATELET COUNT, AUTOMATED 139 10^3/uL (150-450); RED BLOOD COUNT 4.58 10^6/uL (4.30-6.10); WHITE BLOOD COUNT 7.2 10^3/uL (4.0-10.0)
[2018-10-14] MEDS: OXAZEPAM 10 MG CAP PO SCH ×4 (05:15→17:29)
[2018-10-14 05:22] LABS: BLOOD UREA NITROGEN 16 MG/DL (7-18); CALCIUM LEVEL 8.1 MG/DL (8.5-10.1); CARBON DIOXIDE LEVEL 28 MEQ/L (21-32); CHLORIDE LEVEL 102 MEQ/L (98-107); CREATININE FOR GFR 0.76 MG/DL (0.70-1.30); GLOMERULAR FILTRATION RATE > 60.0 (>60); GLUCOSE, FASTING 136 MG/DL (70-100); POTASSIUM SERUM 3.4 MEQ/L (3.5-5.1); SODIUM LEVEL 137 MEQ/L (136-145)
[2018-10-14] MEDS ORDERED: POTASSIUM CHLORIDE 10 MEQ SR TABLET PO ONE (05:30)
[2018-10-14 08:00] VITALS: BP 149/92
[2018-10-14] MEDS: LEVEMIR (INSULIN DETEMIR) 1 UNITS/0.01ML SC SCH ×2 (08:48→21:30)
[2018-10-14] MEDS: HumaLOG INSULIN (NovoLOG) PER UNIT SC SCH ×4 (08:48→21:00)
[2018-10-14] MEDS: PRAVASTATIN 20 MG TAB PO SCH (08:49)
[2018-10-14] MEDS: FOLIC ACID 1 MG TAB PO SCH (08:49)
[2018-10-14] MEDS: MULTIVITAMINS CHILDREN'S CHEWABLE TABLET PO SCH (08:49)
[2018-10-14] MEDS: THIAMINE 100 MG TAB PO SCH (08:50)
--- NOTE | 2018-10-14 10:16 | IPNPDOC ---
Text Note Date of Service The patient was seen on 10/14/18. NOTE Subjective: Patient was examined at bedside this morning. He had no acute over night patient had low-grade fevers, with a MAXIMUM TEMPERATURE of 100.3. He also reported feeling anxious and having some slight tremors in his hand. He was started on Serax milligrams every 6. This morning he denies any abdominal pain, denies any chest pain, denies any breathing difficulty. PHYSICAL EXAMINATION: VITAL SIGNS: See below GENERAL APPEARANCE: Well behaved, occasion male, resting in bed, able to speak in full sentences, alert and oriented HEENT: Atraumatic. Neck: Supple. LUNGS: Clear to auscultation bilaterally. CARDIOVASCULAR: S1 and 2 present, no murmurs or rubs ABDOMEN: Obese, soft, nondistended, MUSCULOSKELETAL: 5 out of 5 in bilateral upper and lower extremity EXTREMITIES: No pedal edema, 2+ bilateral pedal pulses noted. NEUROLOGICAL: Awake, alert, oriented 3, appropriate LABORATORY DATA: See below. IMAGING: Chest x-ray: No acute cardiopulmonary process. CT abdomen and pelvis noncontrast: Small bowel with differential features of IUs peristalsis stasis or mild/partial or developing obstruction. Pancreatic pseudocyst (Complex). Esophagus x-ray Esophagus x-ray, Anterior cervical esophageal web at C5-6, mild mucosal irregularity in the distal esophagus consistent with esophagitis, sliding type hernia hernia present MICROBIOLOGY: Please see below. ASSESSMENT: Patient is 43-year-old man with above-mentioned comorbid history comes in frequently for treatment of DKA. PLAN: Nausea and vomiting 2/2 alcohol use, 2/2 DKA, 2/2 medical non compliance -DKA protocol complete -Zofran for nausea -Insulin siding scale, carbohydrate consistent diet RAYMOND 2/2 dehydration, 2/2 DKA -Hold nephrotoxics -Continue IV hydration Alcohol Abuse - Serax 10 mg Q6h full delirium tremens, patient does not have a prior history of withdrawal seizures, continue monitoring. -Multivitamin -Thiamine -Folic acid Abnormal CT -Followed Dr. Toney, for pancreatic pseudocyst -CT: Complex appearing 5 cm cystic lesion along the anterior pancreatic body appears similar to the prior exam. Further characterization however is limited by this exam. Consider further characterization by nonemergent contrast enhanced pancreatic protocol -Patient will follow-up as an outpatient for pseudocyst GI prophylaxis. Pantoprazole. DVT prophylaxis, TEDs. Further treatment will remain per patient's clinical course. VS,Fishbone, I+O VS, Fishbone, I+O Laboratory Tests 10/13/18 08:08 Calcium Level 7.8 L, Aspartate Amino Transf (AST/SGOT) 24, Alanine Aminotransferase (ALT/SGPT) 23, Alkaline Phosphatase 92, Total Bilirubin 0.5, Total Protein 6.4, Albumin 3.4 10/13/18 10:50 Calcium Level 7.6 L, Aspartate Amino Transf (AST/SGOT) 19, Alanine Aminotransferase (ALT/SGPT) 21, Alkaline Phosphatase 79, Total Bilirubin 0.6, Total Protein 5.9 L, Albumin 3.2 10/13/18 14:04 Calcium Level 7.5 L 10/13/18 16:50 Calcium Level 7.6 L 10/13/18 19:46 Calcium Level 7.8 L 10/14/18 04:45 Calcium Level 8.1 L, Red Blood Count 4.58, Mean Corpuscular Volume 82.3, Mean Corpuscular Hemoglobin 27.1, Mean Corpuscular Hemoglobin Concent 32.9, Red Cell Distribution Width 14.8 H Vital Signs Date Time Temp Pulse Resp B/P (MAP) Pulse Ox O2 Delivery O2 Flow Rate FiO2 10/14/18 04:00 99.4 83 18 136/89 (105) 96 10/13/18 01:14 Room Air I&O- Last 24 Hours up to 6 AM 10/14/18 06:00 Intake Total 3155 ml Output Total 2200 ml Balance 955 ml GME ATTESTATION GME ATTESTATION My faculty preceptor for this patient encounter was physically present during the encounter and was fully available. All aspects of the patient interview, examination, medical decision making process, and medical care plan development were reviewed and approved by the faculty preceptor. The faculty preceptor is aware and concurs with the plan as stated in the body of this note and will attest to such by his/her cosignature. PASCALE DUGGAN DO Oct 14, 2018 08:05
[2018-10-14] MEDS: PANTOPRAZOLE 40MG TAB (PROTONIX) PO SCH (11:10)
[2018-10-14 12:00] VITALS: BP 149/92
[2018-10-14 16:00] VITALS: BP 141/89
--- NOTE | 2018-10-14 17:53 | REP ---
Esophagram The procedure was performed under the direct supervision of Dr. Alvarado. The images were reviewed with Dr. Alvarado. A single view PA chest x-ray is submitted as a machine technician film. The superior mediastinal structures are midline. The heart size is within normal limits. The lungs are clear. Liquid barium and gas producing granules were given in the erect position as well as liquid barium in the prone oblique positions in order to perform a double contrast esophagram examination. The oral and pharyngeal stages of deglutition are unremarkable. There is a small anterior cervical esophageal web at the C5-6 level. Esophageal transport is prompt and efficient. In the distal esophagus there is mild mucosal irregularity consistent with esophagitis. There is no gautam ulcer identified. There is a sliding type hiatal hernia present. Gastroesophageal reflux is not demonstrated on this examination. Impression: 1. There is a small anterior cervical esophageal web at the C5-6 level. 2. There is mild mucosal irregularity in the distal esophagus consistent with esophagitis. 3. There is a sliding type hiatal hernia present. 1.1 minutes of fluoro time was utilized for this procedure. Reviewed by LUPILLO Pritchard 10/14/2018 02:37 P Electronically Signed by Timi Alvarado MD 10/14/2018 05:44 P
[2018-10-14 20:00] VITALS: BP 144/86
[2018-10-14] MEDS: MIRTAZAPINE 15 MG TAB PO SCH (21:30)
[2018-10-15] MEDS: OXAZEPAM 10 MG CAP PO SCH ×2 (00:18→05:46)
[2018-10-15 04:00] VITALS: BP 153/82
[2018-10-15 04:48] LABS: HEMATOCRIT 42.7 % (42.0-52.0); HEMOGLOBIN 13.8 g/dl (13.5-17.5); MEAN CORPUSCULAR HEMOGLOBIN 26.7 pg (27.0-33.0); MEAN CORPUSCULAR HGB CONC 32.3 g/dl (32.0-36.5); MEAN CORPUSCULAR VOLUME 82.6 fl (80.0-96.0); PLATELET COUNT, AUTOMATED 126 10^3/uL (150-450); RED BLOOD COUNT 5.17 10^6/uL (4.30-6.10); WHITE BLOOD COUNT 5.3 10^3/uL (4.0-10.0)
[2018-10-15 05:08] LABS: BLOOD UREA NITROGEN 12 MG/DL (7-18); CALCIUM LEVEL 8.2 MG/DL (8.5-10.1); CARBON DIOXIDE LEVEL 25 MEQ/L (21-32); CHLORIDE LEVEL 105 MEQ/L (98-107); CREATININE FOR GFR 0.81 MG/DL (0.70-1.30); GLOMERULAR FILTRATION RATE > 60.0 (>60); GLUCOSE, FASTING 285 MG/DL (70-100); POTASSIUM SERUM 3.8 MEQ/L (3.5-5.1); SODIUM LEVEL 136 MEQ/L (136-145)
[2018-10-15 08:00] VITALS: BP 147/74
[2018-10-15] MEDS: PRAVASTATIN 20 MG TAB PO SCH (08:21)
[2018-10-15] MEDS: PANTOPRAZOLE 40MG TAB (PROTONIX) PO SCH (08:21)
[2018-10-15] MEDS: MULTIVITAMINS CHILDREN'S CHEWABLE TABLET PO SCH (08:21)
[2018-10-15] MEDS: THIAMINE 100 MG TAB PO SCH (08:21)
[2018-10-15] MEDS: LEVEMIR (INSULIN DETEMIR) 1 UNITS/0.01ML SC SCH (08:22)
[2018-10-15] MEDS: FOLIC ACID 1 MG TAB PO SCH (08:22)
[2018-10-15] MEDS: HumaLOG INSULIN (NovoLOG) PER UNIT SC SCH (08:23)
[2018-10-15] MEDS ORDERED: FOLI1TAB11 PO ×2 (08:56→09:02)
[2018-10-15] MEDS ORDERED: OXAZ10CA3 PO ×2 (08:56→11:36)
[2018-10-15] MEDS ORDERED: ATIV1TAB7 PO (12:24)
--- NOTE | 2018-10-15 15:52 | DS.PDOC ---
Discharge Summary General Date of Admission Oct 12, 2018 at 23:39 Date of Discharge 10/15/18 Attending Physician: JUAN GUARDADO MD Discharge Summary PROCEDURES PERFORMED DURING STAY: None ADMITTING DIAGNOSES: 1. , Nausea, vomiting, abdominal pain DISCHARGE DIAGNOSES: 1. DKA 2. Diabetes 4. Hypertension COMPLICATIONS/CHIEF COMPLAINT: Cornelio, Dka.. HISTORY OF PRESENT ILLNESS/HOSPITAL COURSE: Patient is a 43-year-old man with a past medical history of insulin-dependent diabetes mellitus, hypertension, hyperlipidemia, acid reflux,and alcohol abuse. On presentation pt stated that he had been binge drinking for a couple of days until he started having nausea, vomiting with abdominal pains. It was nonbloody, nonbilious and only contained recently ingested food. He denies any fever or chills, shortness of breath, hematemesis, hemoptysis, chest pain, palpitations and weight loss. He also denies any change in his bowel or urinary habits. His initial evaluation in the ED showed elevated glucose, as well as low-sodium, low bicarbonate and anion gap metabolic acidosis, meaning he was in DKA secondary to alcohol use and medication non complaints. He was admitted to the ICU and started on DKA protocol with IV fluids, electrolyte management and Insulin. His DKA resolved, and his home regiment resumed. human services worker was consulted and offered patient resources for management of his alcohol and diabetic control. Patient declined. He was discharged in stable condition, and he was happy to be going home. However, given patient's decline of social worker delinquency prevention, and help with his alcoholism. Patient is at high risk for readmission. He will l likely resume alcohol consumption at home. DISCHARGE MEDICATIONS: Please see below. ALLERGIES: Please see below. PHYSICAL EXAMINATION ON DISCHARGE: VITAL SIGNS: Please see below. GENERAL APPEARANCE: Alert no acute distress. SKIN: Warm, well perfused. LUNGS: Clear to auscultation bilaterally. HEART: Normal S1, S2. No murmurs, no rubs, no gallops ABDOMEN: Soft. No masses. Bowel sounds are present. EXTREMITIES: Moves all extremities equally. No gross deformities. PULSES: 2+ upper and lower extremity . LABORATORY DATA: Please see below. IMAGING: Esophagus x-ray 1. There is a small anterior cervical esophageal web at the C5-6 level. 2. There is mild mucosal irregularity in the distal esophagus consistent with esophagitis. 3. There is a sliding type hiatal hernia present. 1.1 minutes of fluoro time was utilized for this procedure. CT of the abdomen and pelvis Complex appearing 5 cm cystic lesion along the anterior pancreatic body appears similar to the prior exam. Further characterization however is limited by this exam. Chest x-ray No acute cardiopulmonary process appreciated. PROGNOSIS: Stable ACTIVITY: As tolerated. DIET:, Diabetic diet, carbohydrate consistent DISCHARGE PLAN: To home DISPOSITION: 01 Home, Self-Care. DISCHARGE INSTRUCTIONS: 1.. Medication compliance 2. Alcohol cessation ITEMS TO FOLLOWUP ON ON OUTPATIENT: 1. Alcohol abuse 2 . Diabetic management 3. Follow-ups pancreatic pseudocyst, patient follows with Dr. Worthy in [place] for close monitoring DISCHARGE CONDITION: Stable TIME SPENT ON DISCHARGE: Greater than 35 minutes. Vital Signs/I&Os Vital Signs Date Time Temp Pulse Resp B/P (MAP) Pulse Ox O2 Delivery O2 Flow Rate FiO2 10/15/18 08:00 98.5 89 18 147/74 (98) 97 10/13/18 01:14 Room Air I&O- Last 24 Hours up to 6 AM 10/15/18 06:00 Intake Total 2070 ml Output Total 3300 ml Balance -1230 ml Laboratory Data Labs 24H Laboratory Tests 2 10/14/18 17:19: Bedside Glucose (Misc Panel) 344H 10/14/18 21:13: Bedside Glucose (Misc Panel) 248H 10/15/18 04:20: Nucleated Red Blood Cells % (auto) 0.0, Anion Gap 6L, Glomerular Filtration Rate > 60.0, Blood Urea Nitrogen 12, Creatinine 0.81, Sodium Level 136, Potassium Level 3.8, Chloride Level 105, Carbon Dioxide Level 25, Calcium Level 8.2L CBC/BMP Laboratory Tests 10/15/18 04:20 Red Blood Count 5.17, Mean Corpuscular Volume 82.6, Mean Corpuscular Hemoglobin 26.7 L, Mean Corpuscular Hemoglobin Concent 32.3, Red Cell Distribution Width 14.5, Calcium Level 8.2 L FSBS Laboratory Tests Test 10/14/18 17:19 10/14/18 21:13 Range/Units Bedside Glucose (Misc Panel) 344 248 70-105 MG/DL Microbiology Microbiology 10/12/18 Blood Culture - Preliminary, Resulted No Growth after 48 hours. All Specime... 10/12/18 Blood Culture - Preliminary, Resulted No Growth after 48 hours. All Specime... 10/13/18 Respiratory Virus Panel (PCR) (RODRIGO) - Final, Complete Discharge Medications Scheduled (Aspirin) 81 Mg Chw, 81 MG PO DAILY, (Reported) Clonidine Hcl (Catapres) 0.1 Mg Tab, 0.1 MG PO BID, (Reported) Dapagliflozin Propanediol (Farxiga) 10 Mg Tab, 5 MG PO DAILY, (Reported) Folic Acid (Folic Acid) 1 Mg Tab, 1 MG PO DAILY Insulin Aspart (Novolog) 100 U/Ml Inj, 1 DOSE SC AC, (Reported) PER SLIDING SCALE Insulin Glargine (Lantus Solostar) 100 Unit/Ml Inj, 32 UNITS SC BID, (Reported) Metformin Hydrochloride (Metformin HCl ER) 500 Mg Tab, 2,000 MG PO DAILY, (Reported) Metoprolol Tartrate (Metoprolol Tartrate) 100 Mg Tab, 50 MG PO BID, (Reported) Mirtazapine (Mirtazapine) 45 Mg Tab, 45 MG PO QHS, (Reported) Multivitamins Chewable *[facility] STOCKED* (Animal Shapes with C & FA *[facility] STOCKED*) 1 Tab Chew, 2 TAB PO DAILY, (Reported) Pantoprazole Sodium (Pantoprazole Sodium) 40 Mg Tab, 40 MG PO DAILY, (Reported) Pravastatin Sodium (Pravachol) 20 Mg Tab, 20 MG PO DAILY, (Reported) Ramipril (Altace) 2.5 Mg Cap, 2.5 MG PO DAILY, (Reported) Thiamine HCl (Vitamin B1) 100 Mg Tab, 100 MG PO DAILY, (Reported) Scheduled PRN Lorazepam (Ativan) 1 Mg Tab, 1 TAB PO BIDP PRN for anxiety Allergies Coded Allergies: No Known Drug Allergy (Verified Allergy, Unknown, 12/09/12) GME ATTESTATION GME ATTESTATION My faculty preceptor for this patient encounter was physically present during the encounter and was fully available. All aspects of the patient interview, examination, medical decision making process, and medical care plan development were reviewed and approved by the faculty preceptor. The faculty preceptor is aware and concurs with the plan as stated in the body of this note and will attest to such by his/her cosignature. PASCALE DUGGAN DO Oct 15, 2018 15:51
--- NOTE | 2018-10-15 16:12 | DS.PDOC ---
Discharge Summary General Date of Admission Oct 12, 2018 at 23:39 Date of Discharge 10/15/2018 Attending Physician: JUAN GUARDADO MD Discharge Summary PROCEDURES PERFORMED DURING STAY: [None]. ADMITTING DIAGNOSES: Dizziness. Urinary frequency. Hypertension DISCHARGE DIAGNOSES: Metabolic encephalopathy secondary to UTI Dementia COPD COMPLICATIONS/CHIEF COMPLAINT: Cornelio, Dka.. HISTORY OF PRESENT ILLNESS/HOSPITAL COURSE: The patient is an 82-year-old female with a past medical history of hypertension, dementia, mood disorder. Who presented to the ED with complaints of generalized weakness, dizziness, and urinary frequency. In the emergency room. Her initial evaluation revealed an elevated WBC, as well as lactic acid. And her urine was positive for UTI, culture later revealed Escherichia coli infection. She was admitted and started on IV antibiotics. During her hospital stay. Her white count and lactic acid normalized. She had no acute complaints. She was alert, orientated , and pleasant. Patient has baseline dementia and was confused on occasion, however , overall her mood and mentation was stable during hospital stay. She was discharged in good spirits. She was stable discharge. No acute complaints. She was discharged with a 7 day course of oral antibiotics. S he was evaluated by physical therapy prior to discharge, and was discharged to home with rolling walker. DISCHARGE MEDICATIONS: Please see below. ALLERGIES: Please see below. PHYSICAL EXAMINATION ON DISCHARGE: VITAL SIGNS: Please see below. GENERAL APPEARANCE: Alert no acute distress. SKIN: Warm, well perfused. LUNGS: Clear to auscultation bilaterally. HEART: Normal S1, S2. No murmurs, no rubs, no gallops ABDOMEN: Soft. No masses. Bowel sounds are present. EXTREMITIES: Moves all extremities equally. No gross deformities. PULSES: 2+ upper and lower extremity . LABORATORY DATA: Please see below. IMAGING: Chest X-Ray: Hyperinflation. Mild cardiac enlargement. No acute disease. No acute infiltrate. PROGNOSIS: Stable ACTIVITY:. Elevated. DIET: As tolerated DISCHARGE PLAN:. To home DISPOSITION: 01 Home, Self-Care. DISCHARGE INSTRUCTIONS: 1. Complete antibiotic course ITEMS TO FOLLOWUP ON ON OUTPATIENT: 1. Antibiotic completion DISCHARGE CONDITION: Stable TIME SPENT ON DISCHARGE: Greater than 35 minutes. Vital Signs/I&Os Vital Signs Date Time Temp Pulse Resp B/P (MAP) Pulse Ox O2 Delivery O2 Flow Rate FiO2 10/15/18 08:00 98.5 89 18 147/74 (98) 97 2/6/19 01:14 Room Air I&O- Last 24 Hours up to 6 AM 10/15/18 06:00 Intake Total 2070 ml Output Total 3300 ml Balance -1230 ml Laboratory Data Labs 24H Laboratory Tests 2 10/14/18 17:19: Bedside Glucose (Misc Panel) 344H 10/14/18 21:13: Bedside Glucose (Misc Panel) 248H 10/15/18 04:20: Nucleated Red Blood Cells % (auto) 0.0, Anion Gap 6L, Glomerular Filtration Rate > 60.0, Blood Urea Nitrogen 12, Creatinine 0.81, Sodium Level 136, Potassium Level 3.8, Chloride Level 105, Carbon Dioxide Level 25, Calcium Level 8.2L CBC/BMP Laboratory Tests 10/15/18 04:20 Red Blood Count 5.17, Mean Corpuscular Volume 82.6, Mean Corpuscular Hemoglobin 26.7 L, Mean Corpuscular Hemoglobin Concent 32.3, Red Cell Distribution Width 14.5, Calcium Level 8.2 L FSBS Laboratory Tests Test 10/14/18 17:19 10/14/18 21:13 Range/Units Bedside Glucose (Misc Panel) 344 248 70-105 MG/DL Microbiology Microbiology 10/12/18 Blood Culture - Preliminary, Resulted No Growth after 48 hours. All Specime... 10/12/18 Blood Culture - Preliminary, Resulted No Growth after 48 hours. All Specime... 10/13/18 Respiratory Virus Panel (PCR) (RODRIGO) - Final, Complete Discharge Medications Scheduled (Aspirin) 81 Mg Chw, 81 MG PO DAILY, (Reported) Clonidine Hcl (Catapres) 0.1 Mg Tab, 0.1 MG PO BID, (Reported) Dapagliflozin Propanediol (Farxiga) 10 Mg Tab, 5 MG PO DAILY, (Reported) Folic Acid (Folic Acid) 1 Mg Tab, 1 MG PO DAILY Insulin Aspart (Novolog) 100 U/Ml Inj, 1 DOSE SC AC, (Reported) PER SLIDING SCALE Insulin Glargine (Lantus Solostar) 100 Unit/Ml Inj, 32 UNITS SC BID, (Reported) Metformin Hydrochloride (Metformin HCl ER) 500 Mg Tab, 2,000 MG PO DAILY, (Reported) Metoprolol Tartrate (Metoprolol Tartrate) 100 Mg Tab, 50 MG PO BID, (Reported) Mirtazapine (Mirtazapine) 45 Mg Tab, 45 MG PO QHS, (Reported) Multivitamins Chewable *[facility] STOCKED* (Animal Shapes with C & FA *[facility] STOCKED*) 1 Tab Chew, 2 TAB PO DAILY, (Reported) Pantoprazole Sodium (Pantoprazole Sodium) 40 Mg Tab, 40 MG PO DAILY, (Reported) Pravastatin Sodium (Pravachol) 20 Mg Tab, 20 MG PO DAILY, (Reported) Ramipril (Altace) 2.5 Mg Cap, 2.5 MG PO DAILY, (Reported) Thiamine HCl (Vitamin B1) 100 Mg Tab, 100 MG PO DAILY, (Reported) Scheduled PRN Lorazepam (Ativan) 1 Mg Tab, 1 TAB PO BIDP PRN for anxiety Allergies Coded Allergies: No Known Drug Allergy (Verified Allergy, Unknown, 12/09/12) GME ATTESTATION GME ATTESTATION My faculty preceptor for this patient encounter was physically present during the encounter and was fully available. All aspects of the patient interview, examination, medical decision making process, and medical care plan development were reviewed and approved by the faculty preceptor. The faculty preceptor is aware and concurs with the plan as stated in the body of this note and will attest to such by his/her cosignature. PASCALE DUGGAN DO Oct 15, 2018 16:12
== END 2018-10-15 10:55 | disposition home or self-care (01) | DRG 420 ==
LOC: M ED 19:47 → M ED INP 23:39 → M ICU 10-13 02:05
PROVIDERS: ADMIT Hospitalist; ATTEND Internal Medicine
DX: E11.10 Type 2 diabetes mellitus with ketoacidosis without coma (principal); N17.9 Acute kidney failure, unspecified; I10 Essential (primary) hypertension; E78.5 Hyperlipidemia, unspecified; K21.9 Gastro-esophageal reflux disease without esophagitis; E86.0 Dehydration; F10.10 Alcohol abuse, uncomplicated; F17.210 Nicotine dependence, cigarettes, uncomplicated; Z79.4 Long term (current) use of insulin; Z79.82 Long term (current) use of aspirin; Z79.899 Other long term (current) drug therapy; Z91.14 Patient's other noncompliance with medication regimen

== ENCOUNTER 2018-11-22 20:31 | Emergency (ER) | payer BC ==
[~2018-11-22] VITALS: Ht 175.3 cm; Wt 74.1 kg
[~2018-11-22 20:31] MED LIST changes: +ATIV1TAB7 PO; +MIRT45TA4 PO
[2018-11-22 21:34] LABS: HEMATOCRIT 45.7 % (42.0-52.0); HEMOGLOBIN 15.1 g/dl (13.5-17.5); MEAN CORPUSCULAR HEMOGLOBIN 27.9 pg (27.0-33.0); MEAN CORPUSCULAR VOLUME 84.5 fl (80.0-96.0); PLATELET COUNT, AUTOMATED 264 10^3/uL (150-450); RED BLOOD COUNT 5.41 10^6/uL (4.30-6.10); WHITE BLOOD COUNT 7.7 10^3/uL (4.0-10.0)
[2018-11-22 21:51] LABS: AMPHETAMINES LEVEL URINE NEGATIVE (NEGATIVE); BARBITURATES URINE NEGATIVE (NEGATIVE); BENZODIAZEPINES URINE NEGATIVE (NEGATIVE); CANNABINOIDS URINE NEGATIVE (NEGATIVE); COCAINE METABOLITE URINE NEGATIVE (NEGATIVE); METHADONE URINE NEGATIVE (NEGATIVE); OPIATES URINE NEGATIVE (NEGATIVE); PHENCYCLIDINE URINE NEGATIVE (NEGATIVE)
[2018-11-22 21:58] LABS: ACETAMINOPHEN LEVEL < 2.0 UG/ML (10.0-30.0); ALBUMIN 4.1 GM/DL (3.2-5.2); ALT/SGPT 35 U/L (12-78); BILIRUBIN,DIRECT 0.2 MG/DL (0.0-0.2); BILIRUBIN,TOTAL 0.4 MG/DL (0.2-1.0); BLOOD UREA NITROGEN 12 MG/DL (7-18); CALCIUM LEVEL 8.6 MG/DL (8.5-10.1); CARBON DIOXIDE LEVEL 25 MEQ/L (21-32); CHLORIDE LEVEL 99 MEQ/L (98-107); CREATININE FOR GFR 0.96 MG/DL (0.70-1.30); ETHYL ALCOHOL (ETHANOL) 0.352 % (0.000-0.010); GLOMERULAR FILTRATION RATE > 60.0 (>60); GLUCOSE, FASTING 286 MG/DL (70-100); POTASSIUM SERUM 3.7 MEQ/L (3.5-5.1); SALICYLATE LEVEL < 1.7 MG/DL (5.0-30.0); SODIUM LEVEL 137 MEQ/L (136-145); THYROID STIMULATING HORMONE 0.516 uIU/ML (0.358-3.740); TOTAL PROTEIN 7.5 GM/DL (6.4-8.2)
[2018-11-23] MEDS ORDERED: PANTOPRAZOLE 40MG TAB (PROTONIX) PO ONE (09:00)
[2018-11-23] MEDS ORDERED: MULTIVITAMINS/MINERALS THERAP 1 TAB PO ONE (09:00)
[2018-11-23] MEDS ORDERED: THIAMINE 100 MG TAB PO ONE (09:00)
[2018-11-23] MEDS ORDERED: PRAVASTATIN 20 MG TAB PO SCH (09:00)
[2018-11-23] MEDS ORDERED: cloNIDine 0.1 MG TAB PO ONE (09:00)
[2018-11-23] MEDS ORDERED: FOLIC ACID 1 MG TAB PO ONE (09:00)
[2018-11-23] MEDS ORDERED: metFORMIN (GLUCOPHAGE) 1000 MG TABLET PO ONE (09:00)
[2018-11-23] MEDS ORDERED: ASPIRIN 81 MG CHEW TABLET PO ONE (09:00)
[2018-11-23] MEDS ORDERED: LEVEMIR (INSULIN DETEMIR) 1 UNITS/0.01ML SC ONE (09:00)
[2018-11-23] MEDS ORDERED: METOPROLOL TART 50 MG TAB PO ONE (09:00)
[2018-11-23] MEDS: RAMIPRIL 5 MG CAP PO ONE ×2 (09:24→11:25)
[2018-11-23] MEDS ORDERED: RAMIPRIL 1.25 MG CAP PO ONE (09:45)
[2018-11-23] MEDS ORDERED: metFORMIN XR 500MG TAB *GLUCOPHAGE XR PO ONE (09:45)
[2018-11-23 11:26] VITALS: BP 135/89
[2018-11-24] MEDS ORDERED: OXAZ30CA2 PO (07:13)
== END 2018-11-23 11:27 | disposition home or self-care (01) ==
LOC: M ED 20:31
DX: F10.129 Alcohol abuse with intoxication, unspecified (principal); E11.9 Type 2 diabetes mellitus without complications; I10 Essential (primary) hypertension; E78.5 Hyperlipidemia, unspecified; J44.9 Chronic obstructive pulmonary disease, unspecified; Z72.0 Tobacco use; Z79.82 Long term (current) use of aspirin; Z79.4 Long term (current) use of insulin; Z79.899 Other long term (current) drug therapy
CPT/HCPCS: 80048; 80076; 80307; 84443; 85027; 99284; G0480

== ENCOUNTER 2018-11-24 04:04 | Emergency (ER) | payer BC ==
[~2018-11-24] VITALS: Ht 175.3 cm; Wt 75.0 kg
[2018-11-24] MEDS ORDERED: ONDANSETRON 4MG/2ML VIAL (J2405) IV ONE (04:30)
[2018-11-24] MEDS ORDERED: OXAZEPAM 15 MG CAP PO ONE (04:30)
[2018-11-24] MEDS ORDERED: NS 1,000 ML IV ONE (04:30)
[2018-11-24 05:01] LABS: BASO % 0.4 % (0.0-1.0); EOS # 0.1 10^3/uL (0.0-0.50); EOS % 1.2 % (0.0-3.0); HEMATOCRIT 47.8 % (42.0-52.0); HEMOGLOBIN 15.4 g/dl (13.5-17.5); LYMPH % 18.7 % (24.0-44.0); MEAN CORPUSCULAR HEMOGLOBIN 27.7 pg (27.0-33.0); MEAN CORPUSCULAR HGB CONC 32.2 g/dl (32.0-36.5); MEAN CORPUSCULAR VOLUME 86.1 fl (80.0-96.0); MONO # 0.6 10^3/uL (0.0-0.8); MONO % 10.6 % (0.0-5.0); NEUTROPHILS # 3.6 10^3/uL (1.8-7.7); NEUTROPHILS % 68.7 % (36.0-66.0); PLATELET COUNT, AUTOMATED 162 10^3/uL (150-450); RED BLOOD COUNT 5.55 10^6/uL (4.30-6.10); WHITE BLOOD COUNT 5.2 10^3/uL (4.0-10.0)
[2018-11-24 06:55] LABS: ALBUMIN 3.4 GM/DL (3.2-5.2); ALT/SGPT 30 U/L (12-78); BILIRUBIN,DIRECT 0.2 MG/DL (0.0-0.2); BILIRUBIN,TOTAL 0.7 MG/DL (0.2-1.0); BLOOD UREA NITROGEN 17 MG/DL (7-18); CALCIUM LEVEL 8.2 MG/DL (8.5-10.1); CARBON DIOXIDE LEVEL 29 MEQ/L (21-32); CHLORIDE LEVEL 101 MEQ/L (98-107); CPK CREATINE PHOSPHOKINASE 74 U/L (39-308); CREATININE FOR GFR 0.75 MG/DL (0.70-1.30); ETHYL ALCOHOL (ETHANOL) < 0.003 % (0.000-0.010); GLOMERULAR FILTRATION RATE > 60.0 (>60); GLUCOSE, FASTING 171 MG/DL (70-100); MB/CK RELATIVE INDEX 1.35 (< OR =4); POTASSIUM SERUM 3.4 MEQ/L (3.5-5.1); SODIUM LEVEL 137 MEQ/L (136-145); TOTAL PROTEIN 6.1 GM/DL (6.4-8.2); TROPONIN I < 0.02 NG/ML (< 0.10)
[2018-11-24] MEDS ORDERED: POTASSIUM CHLORIDE 10 MEQ SR TABLET PO ONE (07:00)
[2018-11-24] MEDS ORDERED: OXAZ30CA2 PO (07:13)
[2018-11-24 07:38] VITALS: BP 143/98
--- NOTE | 2018-11-24 21:23 | ECGEPIP ---
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
== END 2018-11-24 07:40 | disposition home or self-care (01) ==
LOC: M ED 04:04
DX: F10.239 Alcohol dependence with withdrawal, unspecified (principal); E11.9 Type 2 diabetes mellitus without complications; I10 Essential (primary) hypertension; E78.9 Disorder of lipoprotein metabolism, unspecified; K21.9 Gastro-esophageal reflux disease without esophagitis; Z79.899 Other long term (current) drug therapy; Z79.4 Long term (current) use of insulin; Z79.82 Long term (current) use of aspirin; F17.210 Nicotine dependence, cigarettes, uncomplicated
CPT/HCPCS: 36415; 80048; 80076; 82550; 82553; 85025; 93005; 93041; 94760; 96374; 99284; G0480; J2405

== ENCOUNTER → 2018-12-09 | Outpatient (CLI) | payer BC ==
[~2018-12-09] MED LIST changes: -ASPI81CH PO; +ASPI81CH49 PO; +METO1TAB63 PO; -METO25TAB PO; +OXAZ30CA2 PO
== END ==
LOC: M OUTALCOH 08:00
PROVIDERS: ATTEND Psychiatry & Neurology Psychiatry
DX: Z13.89 Encounter for screening for other disorder (principal); F10.20 Alcohol dependence, uncomplicated

== ENCOUNTER → 2019-01-04 | Outpatient (RCR) | payer BC | LOC: M OUTALCOH 12-15 09:03 | PROVIDERS: ATTEND Psychiatry & Neurology Psychiatry | DX: F10.20 Alcohol dependence, uncomplicated (principal); Z72.0 Tobacco use ==

== ENCOUNTER 2019-02-03 09:00 | Outpatient (RCR) | payer BC | END 2019-02-04 | LOC: M OUTALCOH 09:00 | PROVIDERS: ATTEND Psychiatry & Neurology Psychiatry | DX: F10.20 Alcohol dependence, uncomplicated (principal); Z72.0 Tobacco use ==

== ENCOUNTER 2019-03-03 09:00 | Outpatient (RCR) | payer BC ==
[2019-03-03] MEDS ORDERED: GABA-843 PO (13:57)
[2019-03-03] MEDS ORDERED: BUPR1TAB56 PO (13:57)
[2019-03-03] MEDS ORDERED: REME45TA2 PO (13:57)
[2019-03-03] MEDS ORDERED: FOLI1TAB11 PO (13:59)
[2019-03-05] MEDS ORDERED: MAGN400T2 PO (10:13)
== END 2019-03-06 ==
LOC: M OUTALCOH 09:00
PROVIDERS: ATTEND Psychiatry & Neurology Psychiatry
DX: F10.20 Alcohol dependence, uncomplicated (principal); Z72.0 Tobacco use

== ENCOUNTER 2019-03-03 10:51 | Inpatient (IN) | payer BC ==
[~2019-03-03] VITALS: Ht 175.3 cm; Wt 73.9 kg
[2019-03-03] MEDS ORDERED: NS 1,000 ML IV ONE ×2 (11:15→13:45)
--- NOTE | 2019-03-03 11:43 | REP ---
Clinical: Shortness of breath . Comparison: 10/12/2018 . Findings: The mediastinum and cardiac silhouette are stable and within normal limits for portable technique. The lung pulido are clear without acute consolidation, effusion, or pneumothorax. Skeletal structures are intact. Impression: No acute cardiopulmonary process appreciated. Electronically Signed by Hiram Lyons MD 03/03/2019 11:34 A
[2019-03-03 11:56] LABS: BASO % 0.3 % (0.0-1.0); EOS % 0.3 % (0.0-3.0); HEMATOCRIT 50.3 % (42.0-52.0); HEMOGLOBIN 16.5 g/dl (13.5-17.5); LYMPH # 1.4 10^3/uL (1.5-4.5); MEAN CORPUSCULAR HEMOGLOBIN 29.2 pg (27.0-33.0); MEAN CORPUSCULAR HGB CONC 32.8 g/dl (32.0-36.5); MEAN CORPUSCULAR VOLUME 88.9 fl (80.0-96.0); MONO # 0.4 10^3/uL (0.0-0.8); MONO % 6.5 % (0.0-5.0); NEUTROPHILS # 4.3 10^3/uL (1.8-7.7); NEUTROPHILS % 70.6 % (36.0-66.0); PLATELET COUNT, AUTOMATED 208 10^3/uL (150-450); RED BLOOD COUNT 5.66 10^6/uL (4.30-6.10); WHITE BLOOD COUNT 6.1 10^3/uL (4.0-10.0)
[2019-03-03] MEDS ORDERED: ONDANSETRON 4MG/2ML VIAL (J2405) IV ONE (12:45)
[2019-03-03] MEDS ORDERED: PANTOPRAZOLE 40MG INJ (PROTONIX) (C9113) IV ONE (12:45)
[2019-03-03 12:50] LABS: ALT/SGPT 27 U/L (12-78); AMYLASE 33 U/L (25-115); BILIRUBIN,DIRECT 0.2 MG/DL (0.0-0.2); BILIRUBIN,TOTAL 0.5 MG/DL (0.2-1.0); BLOOD UREA NITROGEN 12 MG/DL (7-18); CALCIUM LEVEL 9.1 MG/DL (8.5-10.1); CARBON DIOXIDE LEVEL 9 MEQ/L (21-32); CHLORIDE LEVEL 99 MEQ/L (98-107); CREATININE FOR GFR 1.16 MG/DL (0.70-1.30); GLOMERULAR FILTRATION RATE > 60.0 (>60); GLUCOSE, FASTING 351 MG/DL (70-100); LIPASE 50 U/L (73-393); SODIUM LEVEL 129 MEQ/L (136-145); TOTAL PROTEIN 7.6 GM/DL (6.4-8.2)
[2019-03-03 13:07] LABS: VENOUS HCO3 7.1 MEQ/L (23.0-27.0); VENOUS O2 SATURATION 98.4 % (60.0-80.0); VENOUS PARTIAL PRESSURE CO2 18.1 mmHg (38.0-50.0); VENOUS PARTIAL PRESSURE O2 134.8 mmHg (30.0-50.0); VENOUS PH 7.214 UNITS (7.330-7.430); VENOUS STANDARD HCO3 11.7 MEQ/L; VENOUS TOTAL CO2 7.7 MEQ/L (24.0-28.0)
[2019-03-03 13:13] LABS: APPEARANCE, URINE CLEAR (CLEAR); BACTERIA, URINE AUTO NEGATIVE (NEGATIVE); BILIRUBIN, URINE AUTO NEGATIVE (NEGATIVE); BLOOD, URINE BLOOD NEGATIVE (NEGATIVE); COLOR, URINE YELLOW (YELLOW); GLUCOSE, URINE (UA) AUTO 3+ mg/dL (NEGATIVE); KETONE, URINE AUTO 2+ mg/dL (NEGATIVE); LEUKOCYTE ESTERASE, URINE AUTO NEGATIVE (NEGATIVE); NITRITE, URINE AUTO NEGATIVE (NEGATIVE); PROTEIN, URINE AUTO 1+ mg/dL (NEGATIVE); RBC, URINE AUTO 0 /HPF (0-3); SPECIFIC GRAVITY URINE AUTO 1.024 (1.002-1.035); SQUAMOUS EPITHELIAL CELL UR AU 0 /HPF (0-6); UROBILINOGEN, URINE AUTO 0.2 mg/dL (0.0-2.0); WBC, URINE AUTO 0 /HPF (0-3)
[2019-03-03] MEDS ORDERED: INSULIN HUMAN REGULAR 100 UNITS in NS 99 ML IV SCH ×4 (13:45→15:54)
[2019-03-03] MEDS ORDERED: INSULIN IV RATE CHANGE DOCUMENTATION ML/HR XX SCH ×2 (13:45→14:15)
[2019-03-03] MEDS ORDERED: BUPR1TAB56 PO (13:57)
[2019-03-03] MEDS ORDERED: REME45TA2 PO (13:57)
[2019-03-03] MEDS ORDERED: GABA-843 PO (13:57)
[2019-03-03] MEDS ORDERED: FOLI1TAB11 PO (13:59)
[2019-03-03] MEDS ORDERED: RAMIPRIL 5 MG CAP PO ONE (14:15)
[2019-03-03 14:18] LABS: ACETONE/KETONE > 46.00 MG/DL (<2.81)
[2019-03-03] MEDS ORDERED: SODIUM BICARBONATE 8.4% INJ 50 ML SYRINGE IV STA ×2 (14:18→15:53)
--- NOTE | 2019-03-03 14:29 | HPEPDOC ---
General Date of Admission Mar 03, 2019 at 14:06 Date of Service: Mar 03, 2019 Attending Physician: PADMINI LOPEZ MD Chief Complaint The patient is a 43-year-old male admitted with a reason for visit of Diabetic Ketoacidosis. Source: Patient Exam Limitations: No limitations Timing/Duration: Day(s) (3 days) Severity: Moderate Associated Symptoms: Shortness of breath History of Present Illness 43 years old white male with a possible medical history of alcohol, doesn't he is in alcohol rehabilitation right now and hasn't drank in the last 26 days. Patient also has not eaten since last 3 days is complaining of generalized tiredness malaise and fatigue since last 3 days, as per patient, his symptoms are exactly like he when he gets DKA. Patient complaining of shortness of breath along with DKA since last 3 days. No chest pains with some nausea but no vomiting, no syncope, etc. Home Medications Scheduled Aspirin (Aspirin) 81 Mg Chw, 81 MG PO QAM, (Reported) Bupropion HCl (Bupropion HCl Sr) 200 Mg Tab.sr.12h, 200 MG PO QAM, (Reported) Clonidine Hcl (Clonidine HCl) 0.1 Mg Tab, 0.1 MG PO BID, (Reported) Folic Acid (Folic Acid) 1 Mg Tablet, 1 MG PO QAM, (Reported) Gabapentin (Gabapentin) 300 Mg Capsule, 600 MG PO QHS, (Reported) Insulin Glargine,Hum.rec.anlog (Lantus Solostar) 100 Unit/Ml Inj, 30 UNITS SC BID, (Reported) Insulin Human Lispro (Novolog) 100 U/Ml Inj, 1 DOSE SC AC, (Reported) PER SLIDING SCALE Metoprolol Tartrate (Metoprolol Tartrate) 100 Mg Tab, 50 MG PO BID, (Reported) Mirtazapine (Remeron) 45 Mg Tab.rapdis, 45 MG PO QHS, (Reported) Multivitamins (Child Chew Vitamin) 1 Tab Chew, 2 TAB PO QAM, (Reported) Pantoprazole Sodium (Pantoprazole Sodium) 40 Mg Tab, 40 MG PO QAM, (Reported) Pravastatin Sodium (Pravachol) 20 Mg Tab, 20 MG PO QAM, (Reported) Ramipril (Altace) 2.5 Mg Cap, 2.5 MG PO QAM, (Reported) Thiamine HCl (Vitamin B-1) 100 Mg Tab, 100 MG PO QAM, (Reported) Allergies Coded Allergies: No Known Allergies (Unverified , 03/03/19) Past Medical History Medical History Diabetes mellitus, recurrent pancreatitis, alcohol addiction disease Surgical History Vasectomy Social History * Smoker: Denies Alcohol: Denies Drugs: denies Pets in the home: Dog(s) A-FIB/CHADSVASC A-FIB History Current/History of A-Fib/PAF?: No Review of Systems Constitutional: Reports: Weakness, Fatigue Eyes: Denies: Pain, Vision change, Conjunctivae inflammation, Eyelid infl ammation, Redness, Other ENT: Denies: Head Aches, Ear Pain, Dysphagia, Sinus Congestion, Post Nasal Drip, Sore Throat, Epistaxis, Other Symptoms Skin: Denies: Rash, Lesions, Jaundice, Bruising, Itching, Dry, Breakdown, Nail Changes, Other Pulmonary: Reports: Dyspnea; Denies: Cough, Pleuritic Chest Pain, Other Symptoms Cardiovascular: Denies: Chest Pain, Palpitations, Orthopnea, Paroxysmal Noc. Dyspnea, Edema, Lt Headedness, Other Symptoms Gastrointestinal: Denies: Nausea, Vomiting, Abdominal Pain, Diarrhea, Constipation, Melena, Hematochezia, Other Symptoms Genitourinary: Denies: Dysuria, Frequency, Incontinence, Hematuria, Retention, Other Symptoms Hematologic: Denies: Bruising, Bleeding Excessively, Petecchia, Purpura, Enlarged Lymph Nodes, Other Hematologic Endocrine: Denies: Polydipsia, Polyphagia, Polyuria, Heat Intolerance, Cold Intolerance, Other Endocrine Sx Musculoskeletal: Denies: Neck Pain, Back Pain, Shoulder Pain, Arm Pain, Hand Pain, Leg Pain, Foot Pain, Joint Pain, Muscle Pain, Spasms, Other Symptoms Neurological: Denies: Weakness, Numbness, Incoordination, Change in speech, Confusion, Seizures, Other Symptoms Psych: Denies: Mood Normal, Anxiety, Depression, Memory Issues, Thoughts of Self Harm, Anger, Thoughts of Harming Other, Other Psych Physical Examination General Exam: Positive: Alert, Cooperative Eye Exam: Positive: PERRLA, Conjunctiva & lids normal, EOMI ENT Exam: Positive: Atraumatic, Mucous membr. moist/pink Neck Exam: Positive: Supple, JVD Chest Exam: Positive: Clear to auscultation Heart Exam: Positive: Rate Normal, Normal S1 Abdomen Exam: Positive: Normal bowel sounds, Soft Extremity Exam: Positive: Normal pulses Skin Exam: Positive: Nl turgor and temperature Neuro Exam: Positive: Normal Gait, Cranial Nerves 3-12 NL Psych Exam: Positive: Mental status NL, Oriented x 3 Vital Signs Vital Signs Date Time Temp Pulse Resp B/P (MAP) Pulse Ox O2 Delivery O2 Flow Rate FiO2 03/03/19 12:15 102 18 137/95 (109) 100 Room Air 03/03/19 10:51 98.1 Laboratory Data Labs 24H Laboratory Tests 2 03/03/19 10:59: Bedside Glucose (Misc Panel) 377H 03/03/19 11:12: Immature Granulocyte % (Auto) 0.3, White Blood Count 6.1, Red Blood Count 5.66, Hemoglobin 16.5, Hematocrit 50.3, Mean Corpuscular Volume 88.9, Mean Corpuscular Hemoglobin 29.2, Mean Corpuscular Hemoglobin Concent 32.8, Red Cell Distribution Width 14.5, Platelet Count 208, Neutrophils (%) (Auto) 70.6H, Lymphocytes (%) (Auto) 22.0L, Monocytes (%) (Auto) 6.5H, Eosinophils (%) (Auto) 0.3, Basophils (%) (Auto) 0.3, Neutrophils # (Auto) 4.3, Lymphocytes # (Auto) 1.4L, Monocytes # (Auto) 0.4, Eosinophils # (Auto) 0.0, Basophils # (Auto) 0.0, Nucleated Red Blood Cells % (auto) 0.0, Anion Gap 21H, Glomerular Filtration Rate > 60.0, Calcium Level 9.1, Aspartate Amino Transf (AST/SGOT) 19, Alanine Aminotransferase (ALT/SGPT) 27, Alkaline Phosphatase 123H, Total Bilirubin 0.5, Direct Bilirubin 0.2, Total Protein 7.6, Albumin 4.0, Albumin/Globulin Ratio 1.11, Amylase Level 33, Lipase 50L, B-Hydroxybutyrate > 46.00H 03/03/19 12:59: Urine Appearance CLEAR, Urine Color YELLOW, Urine pH 5.0, Urine Specific [place] 1.024, Urine Protein 1+H, Urine Glucose (UA) 3+H, Urine Ketones 2+H, Urine Urobilinogen 0.2, Urine Bilirubin NEGATIVE, Urine Leukocyte Esterase NEGATIVE, Urine Blood NEGATIVE, Urine Nitrite NEGATIVE, Urine WBC (Auto) 0, Urine RBC (Auto) 0, Urine Hyaline Casts (Auto) 1, Urine Bacteria (Auto) NEGATIVE, Urine Squamous Epithelial Cells 0, Urine Sperm (Auto) , Blood Gas Bicarbonate Standard 11.7, Venous Blood pH 7.214L, Venous Blood Partial Pressure CO2 18.1L, Venous Blood Partial Pressure O2 134.8H, Venous Blood Total Carbon Dioxide 7.7L, Venous Blood HCO3 7.1L, Venous Blood Oxygen Saturation 98.4H, Venous Blood Base Excess -18.0L 03/03/19 13:30: Bedside Glucose (Misc Panel) 257H CBC/BMP Laboratory Tests 03/03/19 11:12 Red Blood Count 5.66, Mean Corpuscular Volume 88.9, Mean Corpuscular Hemoglobin 29.2, Mean Corpuscular Hemoglobin Concent 32.8, Red Cell Distribution Width 14. 5, Neutrophils (%) (Auto) 70.6 H, Lymphocytes (%) (Auto) 22.0 L, Monocytes (%) (Auto) 6.5 H, Eosinophils (%) (Auto) 0.3, Basophils (%) (Auto) 0.3, Neutrophils # (Auto) 4.3, Lymphocytes # (Auto) 1.4 L, Monocytes # (Auto) 0.4, Eosinophils # (Auto) 0.0, Basophils # (Auto) 0.0 Problems (1) Diabetic ketoacidosis Status: Acute Problem Text: Admit patient to ICU Patient is acidotic on the basis of ABG pH and a bicarbonate level Also, anion gap is significantly high [place] serum acetone and serum lipase level as well Patient did receive 2 L of normal saline IV loading in ED Will continue normal saline at 150 mL per hour Insulin drip at 2 units per hour and adjust dose according to sliding scale , Bicarbonate 50 mg 2 g IV stat Hold long acting insulin to DKA is resolved Continue all home medications Clear liquid diet OB as tolerated DVT prophylaxis with Lovenox Plan / VTE VTE Prophylaxis Ordered?: Yes PADMINI LOPEZ MD Mar 03, 2019 14:29
[2019-03-03] MEDS ORDERED: NS 1,000 ML IV SCH (14:30)
[2019-03-03 15:20] VITALS: BP 134/91
[2019-03-03 15:53] VITALS: BP 134/91
[2019-03-03 16:17] LABS: ACETONE/KETONE > 46.00 MG/DL (<2.81); LIPASE 80 U/L (73-393); MAGNESIUM LEVEL 2.1 MG/DL (1.8-2.4)
[2019-03-03] MEDS: INSULIN IV RATE CHANGE DOCUMENTATION ML/HR XX SCH ×2 (16:45→18:08)
[2019-03-03 18:00] VITALS: BP 110/65
--- NOTE | 2019-03-03 20:15 | ECGEPIP ---
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 Order Number: [id number] Reading MD: Ulysses Garnica Measurements Intervals [place] Rate: 103 P: 62 [place]: 120 QRS: 53 QRSD: 88 T: 59 QT: 310 QTc: 408 Interpretive Statements SINUS TACHYCARDIA BENIGN EARLY REPOLARIZATION Electronically Signed on 03-03-2019 20:15:33 EDT by Ulysses Garnica
[2019-03-03 20:25] LABS: BLOOD UREA NITROGEN 8 MG/DL (7-18); CALCIUM LEVEL 8.2 MG/DL (8.5-10.1); CARBON DIOXIDE LEVEL 22 MEQ/L (21-32); CHLORIDE LEVEL 106 MEQ/L (98-107); CREATININE FOR GFR 1.02 MG/DL (0.70-1.30); GLOMERULAR FILTRATION RATE > 60.0 (>60); GLUCOSE, FASTING 87 MG/DL (70-100); SODIUM LEVEL 134 MEQ/L (136-145)
[2019-03-03] MEDS ORDERED: GLUCAGON FOR INJ 1 MG VIAL (J1610) SC PRN (20:45)
[2019-03-03] MEDS ORDERED: DEXTROSE 50% 50 ML SYRINGE IV PRN (20:45)
[2019-03-03] MEDS ORDERED: POTASSIUM CHLORIDE 10 MEQ SR TABLET PO ONE (20:45)
[2019-03-03] MEDS ORDERED: GLUCOSE 4 GM CHEW TABLET PO PRN (20:45)
[2019-03-03 21:00] VITALS: BP 113/66
[2019-03-03] MEDS ORDERED: cloNIDine 0.1 MG TAB PO SCH (21:00)
[2019-03-03] MEDS: HumaLOG INSULIN (NovoLOG) PER UNIT SC SCH (21:00)
[2019-03-03] MEDS ORDERED: METOPROLOL TARTRATE 100 MG TAB PO SCH (21:00)
[2019-03-03] MEDS: CHLORHEXIDINE GLUCONATE 0.12 % 15ML UDC (PERIDEX ORAL RINSE) MT SCH (21:00)
[2019-03-03] MEDS: GABAPENTIN 300 MG CAP PO SCH (21:08)
[2019-03-03] MEDS: MIRTAZAPINE 15 MG TAB PO SCH (21:08)
[2019-03-03] MEDS: LEVEMIR (INSULIN DETEMIR) 1 UNITS/0.01ML SC SCH (22:53)
[2019-03-04] VITALS (8 sets, daily range): BP systolic 85–116; BP diastolic 56–71
[2019-03-04 02:24] LABS: BLOOD UREA NITROGEN 7 MG/DL (7-18); CALCIUM LEVEL 8.3 MG/DL (8.5-10.1); CARBON DIOXIDE LEVEL 22 MEQ/L (21-32); CHLORIDE LEVEL 110 MEQ/L (98-107); CREATININE FOR GFR 1.03 MG/DL (0.70-1.30); GLOMERULAR FILTRATION RATE > 60.0 (>60); GLUCOSE, FASTING 231 MG/DL (70-100); POTASSIUM SERUM 3.4 MEQ/L (3.5-5.1); SODIUM LEVEL 138 MEQ/L (136-145)
[2019-03-04] MEDS ORDERED: LR 1,000 ML IV ONE (04:15)
[2019-03-04 05:36] LABS: HEMATOCRIT 43.3 % (42.0-52.0); HEMOGLOBIN 14.3 g/dl (13.5-17.5); MEAN CORPUSCULAR HEMOGLOBIN 28.6 pg (27.0-33.0); MEAN CORPUSCULAR VOLUME 86.6 fl (80.0-96.0); PLATELET COUNT, AUTOMATED 158 10^3/uL (150-450); WHITE BLOOD COUNT 4.2 10^3/uL (4.0-10.0)
[2019-03-04 06:01] LABS: HEMOGLOBIN A1c 12.1 %
[2019-03-04 06:03] LABS: ALBUMIN 2.9 GM/DL (3.2-5.2); ALT/SGPT 21 U/L (12-78); BILIRUBIN,TOTAL 0.4 MG/DL (0.2-1.0); BLOOD UREA NITROGEN 8 MG/DL (7-18); CARBON DIOXIDE LEVEL 26 MEQ/L (21-32); CHLORIDE LEVEL 110 MEQ/L (98-107); CREATININE FOR GFR 0.95 MG/DL (0.70-1.30); GLOMERULAR FILTRATION RATE > 60.0 (>60); GLUCOSE, FASTING 147 MG/DL (70-100); MAGNESIUM LEVEL 1.7 MG/DL (1.8-2.4); PHOSPHORUS LEVEL 2.2 MG/DL (2.5-4.9); POTASSIUM SERUM 3.4 MEQ/L (3.5-5.1); SODIUM LEVEL 143 MEQ/L (136-145); TOTAL PROTEIN 5.6 GM/DL (6.4-8.2)
[2019-03-04] MEDS: HumaLOG INSULIN (NovoLOG) PER UNIT SC SCH ×4 (07:30→20:50)
[2019-03-04] MEDS: CHLORHEXIDINE GLUCONATE 0.12 % 15ML UDC (PERIDEX ORAL RINSE) MT SCH ×2 (09:00→20:49)
[2019-03-04] MEDS: ENOXAPARIN 40 MG/0.4 ML SYRINGE (J1650) SC SCH (09:22)
[2019-03-04] MEDS: PRAVASTATIN 20 MG TAB PO SCH (09:23)
[2019-03-04] MEDS: PANTOPRAZOLE 40MG TAB (PROTONIX) PO SCH (09:23)
[2019-03-04] MEDS: THIAMINE 100 MG TAB PO SCH (09:23)
[2019-03-04] MEDS: ASPIRIN 81 MG ENTERIC TAB PO SCH (09:23)
[2019-03-04] MEDS: LEVEMIR (INSULIN DETEMIR) 1 UNITS/0.01ML SC SCH ×2 (09:23→20:50)
[2019-03-04] MEDS: FOLIC ACID 1 MG TAB PO SCH (09:23)
[2019-03-04] MEDS: FAMOTIDINE 20 MG TAB PO SCH (09:23)
[2019-03-04] MEDS ORDERED: POTASSIUM CHLORIDE 10 MEQ SR TABLET PO ONE (10:00)
--- NOTE | 2019-03-04 11:31 | IPNPDOC ---
Subjective Date Seen The patient was seen on 03/04/19. Subjective Chief Complaint/HPI Patient very comfortable, but is still complaining of tiredness. His fingerstick blood sugar is under well control and insulin drip for DC'd and he is been started on fingerstick blood sugar every before meals and at bedtime with coverage General: Denies: ROS Unobtainable, Chills, Night Sweats, Fatigue, Malaise, Normal Appetite, Other Symptoms Constitutional: Denies: Chills, Fever, Malaise, Night Sweats, Weakness, Fatigue, Weight Loss, Lethargy, Other Eyes: Denies: Pain, Vision change, Conjunctivae inflammation, Eyelid inflammation, Redness, Other ENT: Denies: Head Aches, Ear Pain, Dysphagia, Sinus Congestion, Post Nasal Drip, Sore Throat, Epistaxis, Other Symptoms Skin: Denies: Rash, Lesions, Jaundice, Bruising, Itching, Dry, Breakdown, Nail Changes, Other Pulmonary: Denies: Dyspnea, Cough, Pleuritic Chest Pain, Other Symptoms Cardiovascular: Denies: Chest Pain, Palpitations, Orthopnea, Paroxysmal Noc. Dyspnea, Edema, Lt Headedness, Other Symptoms Gastrointestinal: Denies: Nausea, Vomiting, Abdominal Pain, Diarrhea, Constipation, Melena, Hematochezia, Other Symptoms Musculoskeletal: Denies: Neck Pain, Back Pain, Shoulder Pain, Arm Pain, Hand Pain, Leg Pain, Foot Pain, Joint Pain, Muscle Pain, Spasms, Other Symptoms Neurological: Denies: Weakness, Numbness, Incoordination, Change in speech, Confusion, Seizures, Other Symptoms Psych: Denies: Mood Normal, Anxiety, Depression, Memory Issues, Thoughts of Self Harm, Anger, Thoughts of Harming Other, Other Psych Objective Physical Examination General Exam: Positive: Alert, Cooperative Eye Exam: Positive: PERRLA, Conjunctiva & lids normal, EOMI ENT Exam: Positive: Atraumatic, Mucous membr. moist/pink Neck Exam: Positive: Supple, JVD Chest Exam: Positive: Clear to auscultation Heart Exam: Positive: Rate Normal, Normal S1 Abdomen Exam: Positive: Normal bowel sounds, Soft Extremity Exam: Positive: Normal pulses Skin Exam: Positive: Nl turgor and temperature Neuro Exam: Positive: Normal Gait, Cranial Nerves 3-12 NL Psych Exam: Positive: Mental status NL, Oriented x 3 Assessment /Plan Problems (1) Diabetic ketoacidosis Status: Resolved Problem Text: . Patient is still in ICu DKA is resolved Fingerstick blood sugar is under well control Insulin drip was DC'd. He is on fingerstick blood sugar coverage with regular insulin Insulin detemir also has been ordered as per home dose Potassium supplemented secondary to hypokalemia Patient can be transferred to medical floor Continue present care. DVT prophylaxis with Lovenox Bed as tolerated Possible discharge in a.m. Plan/VTE VTE Prophylaxis Ordered?: Yes VS, I&O, 24H, [facility] Vital Signs/I&O Vital Signs Date Time Temp Pulse Resp B/P (MAP) Pulse Ox O2 Delivery O2 Flow Rate FiO2 03/04/19 08:00 97.4 68 18 96/60 (72) 100 03/03/19 14:15 Room Air I&O- Last 24 Hours up to 6 AM 03/04/19 05:59 Intake Total 4191 ml Output Total 2450 ml Balance 1741 ml Laboratory Data 24H LABS Laboratory Tests 2 03/03/19 12:59: Urine Appearance CLEAR, Urine Color YELLOW, Urine pH 5.0, Urine Specific [place] 1.024, Urine Protein 1+H, Urine Glucose (UA) 3+H, Urine Ketones 2+H, Urine Urobilinogen 0.2, Urine Bilirubin NEGATIVE, Urine Leukocyte Esterase NEGATIVE, Urine Blood NEGATIVE, Urine Nitrite NEGATIVE, Urine WBC (Auto) 0, Urine RBC (Auto) 0, Urine Hyaline Casts (Auto) 1, Urine Bacteria (Auto) NEGATIVE, Urine Squamous Epithelial Cells 0, Urine Sperm (Auto) , Blood Gas Bicarbonate Standard 11.7, Venous Blood pH 7.214L, Venous Blood Partial Pressure CO2 18.1L, Venous Blood Partial Pressure O2 134.8H, Venous Blood Total Carbon Dioxide 7.7L, Venous Blood HCO3 7.1L, Venous Blood Oxygen Saturation 98.4H, Venous Blood Base Excess -18.0L 03/03/19 13:30: Bedside Glucose (Misc Panel) 257H 03/03/19 15:06: Bedside Glucose (Misc Panel) 213H 03/03/19 15:30: Magnesium Level 2.1, Lipase 80, B-Hydroxybutyrate > 46.00H 03/03/19 16:26: Bedside Glucose (Misc Panel) 296H 03/03/19 18:00: Bedside Glucose (Misc Panel) 234H 03/03/19 19:08: Bedside Glucose (Misc Panel) 116H 03/03/19 19:33: Anion Gap 6L, Glomerular Filtration Rate > 60.0, Blood Urea Nitrogen 8, Creatinine 1.02, Sodium Level 134L, Potassium Level 3.0#L, Chloride Level 106, Carbon Dioxide Level 22, Calcium Level 8.2L 03/03/19 21:10: Bedside Glucose (Misc Panel) 62L 03/03/19 22:50: Bedside Glucose (Misc Panel) 278H 03/04/19 01:51: Anion Gap 6L, Glomerular Filtration Rate > 60.0, Blood Urea Nitrogen 7, Creatinine 1.03, Sodium Level 138, Potassium Level 3.4L, Chloride Level 110H, Carbon Dioxide Level 22, Calcium Level 8.3L 03/04/19 05:22: Anion Gap 7L, Glomerular Filtration Rate > 60.0, Blood Urea Nitrogen 8, Creatinine 0.95, Sodium Level 143, Potassium Level 3.4L, Chloride Level 110H, Carbon Dioxide Level 26, Calcium Level 8.0L, Nucleated Red Blood Cells % (auto) 0.0, Estimated Mean Plasma Glucose 301H, Hemoglobin A1c 12.1, Lactic Acid Level 1.6, Phosphorus Level 2.2L, Aspartate Amino Transf (AST/SGOT) 14, Alanine Aminotransferase (ALT/SGPT) 21, Alkaline Phosphatase 93, Total Bilirubin 0.4, Total Protein 5.6#L, Albumin 2.9#L, Magnesium Level 1.7L, Albumin/Globulin Ratio 1.07 03/04/19 07:48: Bedside Glucose (Misc Panel) 65L CBC/BMP Laboratory Tests 03/03/19 19:33 Calcium Level 8.2 L 03/04/19 01:51 Calcium Level 8.3 L 03/04/19 05:22 Calcium Level 8.0 L, Red Blood Count 5.00, Mean Corpuscular Volume 86.6, Mean Corpuscular Hemoglobin 28.6, Mean Corpuscular Hemoglobin Concent 33.0, Red Cell Distribution Width 14.5, Phosphorus Level 2.2 L, Aspartate Amino Transf (AST/SGOT) 14, Alanine Aminotransferase (ALT/SGPT) 21, Alkaline Phosphatase 93, Total Bilirubin 0.4, Total Protein 5.6 #L, Albumin 2.9 #L Microbiology Microbiology 03/04/19 Blood Culture, Received Pending 03/04/19 Blood Culture, Received Pending PADMINI LOPEZ MD Mar 04, 2019 11:31
[2019-03-04] MEDS: buPROPion (WELLBUTRIN SR) 100 MG SR TAB PO SCH (12:32)
[2019-03-04] MEDS: MULTIVITAMINS CHILDREN'S CHEWABLE TABLET PO SCH (12:32)
[2019-03-04] MEDS: GABAPENTIN 300 MG CAP PO SCH (20:49)
[2019-03-04] MEDS: MIRTAZAPINE 15 MG TAB PO SCH (20:49)
[2019-03-04] MEDS ORDERED: LEVEMIR (INSULIN DETEMIR) 1 UNITS/0.01ML SC SCH (21:00)
[2019-03-05 04:00] VITALS: BP 116/72
[2019-03-05] MEDS: MULTIVITAMINS CHILDREN'S CHEWABLE TABLET PO SCH (08:54)
[2019-03-05] MEDS: buPROPion (WELLBUTRIN SR) 100 MG SR TAB PO SCH (08:54)
[2019-03-05] MEDS: FAMOTIDINE 20 MG TAB PO SCH (08:55)
[2019-03-05] MEDS: PRAVASTATIN 20 MG TAB PO SCH (08:55)
[2019-03-05] MEDS: PANTOPRAZOLE 40MG TAB (PROTONIX) PO SCH (08:55)
[2019-03-05] MEDS: ASPIRIN 81 MG ENTERIC TAB PO SCH (08:55)
[2019-03-05] MEDS: FOLIC ACID 1 MG TAB PO SCH (08:55)
[2019-03-05] MEDS: THIAMINE 100 MG TAB PO SCH (08:55)
[2019-03-05] MEDS: LEVEMIR (INSULIN DETEMIR) 1 UNITS/0.01ML SC SCH (08:56)
[2019-03-05] MEDS: CHLORHEXIDINE GLUCONATE 0.12 % 15ML UDC (PERIDEX ORAL RINSE) MT SCH (08:57)
[2019-03-05] MEDS: HumaLOG INSULIN (NovoLOG) PER UNIT SC SCH (08:57)
[2019-03-05] MEDS: ENOXAPARIN 40 MG/0.4 ML SYRINGE (J1650) SC SCH (09:00)
[2019-03-05 09:34] LABS: ALBUMIN 2.8 GM/DL (3.2-5.2); ALT/SGPT 20 U/L (12-78); BILIRUBIN,TOTAL 0.1 MG/DL (0.2-1.0); BLOOD UREA NITROGEN 9 MG/DL (7-18); CALCIUM LEVEL 7.8 MG/DL (8.5-10.1); CARBON DIOXIDE LEVEL 22 MEQ/L (21-32); CHLORIDE LEVEL 109 MEQ/L (98-107); CREATININE FOR GFR 0.92 MG/DL (0.70-1.30); GLOMERULAR FILTRATION RATE > 60.0 (>60); GLUCOSE, FASTING 400 MG/DL (70-100); MAGNESIUM LEVEL 1.7 MG/DL (1.8-2.4); POTASSIUM SERUM 3.7 MEQ/L (3.5-5.1); SODIUM LEVEL 138 MEQ/L (136-145); TOTAL PROTEIN 5.4 GM/DL (6.4-8.2)
[2019-03-05] MEDS ORDERED: MAGN400T2 PO (10:13)
--- NOTE | 2019-03-05 10:44 | DS.PDOC ---
Discharge Summary General Date of Admission Mar 03, 2019 at 14:06 Date of Discharge 03/05/2019 Attending Physician: PADMINI LOPEZ MD Discharge Summary PROCEDURES PERFORMED DURING STAY: None. ADMITTING DIAGNOSES: 1. DKA. DISCHARGE DIAGNOSES: 1. DKA. COMPLICATIONS/CHIEF COMPLAINT: Diabetic Ketoacidosis. HISTORY OF PRESENT ILLNESS: 43 years old white male with a possible medical history of alcohol, doesn't he is in alcohol rehabilitation right now and hasn't drank in the last 26 days. Patient also has not eaten since last 3 days is complaining of generalized tiredness malaise and fatigue since last 3 days, as per patient, his symptoms are exactly like he when he gets DKA. Patient complaining of shortness of breath along with DKA since last 3 days. No chest pains with some nausea but no vomiting, no syncope, etc.. HOSPITAL COURSE: DKA is resolved after insulin drip and management in ICU Fingerstick blood sugar is under well control on long-acting insulin Insulin drip was DC'd yesterday. He is on fingerstick blood sugar coverage with regular insulin Insulin detemir also has been ordered as per home dose Potassium supplemented secondary to hypokalemia Patient will be discharged home today with all his previous medications along with mag oxide supplement Extensive counseling regarding compliance with weight meds was done and all the risks were explained to him and he understands very well. DISCHARGE MEDICATIONS: Please see below. ALLERGIES: Please see below. PHYSICAL EXAMINATION ON DISCHARGE: VITAL SIGNS: Please see below. GENERAL: Within normal limits HEENT: PERRLA NECK: Supple CARDIOVASCULAR EXAMINATION: S1, S2, regular RESPIRATORY EXAMINATION: Clear to A&P ABDOMINAL EXAMINATION: [, Soft, nontender EXTREMITIES: No clubbing, cyanosis SKIN: Normal NEUROLOGICAL EXAMINATION: Normal PSYCHIATRIC EXAMINATION: Normal LABORATORY DATA: Please see below. IMAGING: None PROGNOSIS: Good ACTIVITY: As tolerated. DIET: Carbohydrate consistent diet As DISCHARGE PLAN: Discharge home DISPOSITION: . Home DISCHARGE INSTRUCTIONS: 1. As above. ITEMS TO FOLLOWUP ON ON OUTPATIENT: 1. Follow with PCP in one week . DISCHARGE CONDITION: Stable. TIME SPENT ON DISCHARGE:45 minutes. Vital Signs/I&Os Vital Signs Date Time Temp Pulse Resp B/P (MAP) Pulse Ox O2 Delivery O2 Flow Rate FiO2 03/05/19 04:00 97.7 78 18 116/72 (87) 96 03/03/19 14:15 Room Air I&O- Last 24 Hours up to 6 AM 03/05/19 06:00 Intake Total 3450 ml Output Total 1500 ml Balance 1950 ml Laboratory Data Labs 24H Laboratory Tests 2 03/04/19 12:06: Bedside Glucose (Misc Panel) 238H 03/04/19 17:06: Bedside Glucose (Misc Panel) 209H 03/04/19 20:33: Bedside Glucose (Misc Panel) 222H 03/05/19 07:30: Bedside Glucose (Misc Panel) 207H 03/05/19 08:48: Anion Gap 7L, Glomerular Filtration Rate > 60.0, Blood Urea Nitrogen 9, Creatinine 0.92, Sodium Level 138, Potassium Level 3.7, Chloride Level 109H, Carbon Dioxide Level 22, Calcium Level 7.8L, Aspartate Amino Transf (AST/SGOT) 15, Alanine Aminotransferase (ALT/SGPT) 20, Alkaline Phosphatase 84, Total B ilirubin 0.1#L, Total Protein 5.4L, Albumin 2.8L, Magnesium Level 1.7L, Albumin/Globulin Ratio 1.08 CBC/BMP Laboratory Tests 03/05/19 08:48 Calcium Level 7.8 L, Aspartate Amino Transf (AST/SGOT) 15, Alanine Aminotransferase (ALT/SGPT) 20, Alkaline Phosphatase 84, Total Bilirubin 0.1 #L, Total Protein 5.4 L, Albumin 2.8 L FSBS Laboratory Tests Test 03/04/19 12:06 03/04/19 17:06 03/04/19 20:33 03/05/19 07:30 Range/Units Bedside Glucose (Misc Panel) 238 209 222 207 70-105 MG/DL Microbiology Microbiology 03/04/19 Blood Culture - Preliminary, Resulted No growth after 24 hours . All specim... 03/04/19 Blood Culture - Preliminary, Resulted No growth after 24 hours . All specim... Discharge Medications Scheduled Aspirin (Aspirin) 81 Mg Chw, 81 MG PO QAM, (Reported) Bupropion HCl (Bupropion HCl Sr) 200 Mg Tab.sr.12h, 200 MG PO QAM, (Reported) Clonidine Hcl (Clonidine HCl) 0.1 Mg Tab, 0.1 MG PO BID, (Reported) Folic Acid (Folic Acid) 1 Mg Tablet, 1 MG PO QAM, (Reported) Gabapentin (Gabapentin) 300 Mg Capsule, 600 MG PO QHS, (Reported) Insulin Glargine,Hum.rec.anlog (Lantus Solostar) 100 Unit/Ml Inj, 30 UNITS SC BID, (Reported) Insulin Human Lispro (Novolog) 100 U/Ml Inj, 1 DOSE SC AC, (Reported) PER SLIDING SCALE Magnesium Oxide (Magnesium Oxide) 400 Mg Tablet, 1 TAB PO DAILY for constipation Metoprolol Tartrate (Metoprolol Tartrate) 100 Mg Tab, 50 MG PO BID, (Reported) Mirtazapine (Remeron) 45 Mg Tab.rapdis, 45 MG PO QHS, (Reported) Multivitamins (Child Chew Vitamin) 1 Tab Chew, 2 TAB PO QAM, (Reported) Pantoprazole Sodium (Pantoprazole Sodium) 40 Mg Tab, 40 MG PO QAM, (Reported) Pravastatin Sodium (Pravachol) 20 Mg Tab, 20 MG PO QAM, (Reported) Ramipril (Altace) 2.5 Mg Cap, 2.5 MG PO QAM, (Reported) Thiamine HCl (Vitamin B-1) 100 Mg Tab, 100 MG PO QAM, (Reported) Allergies Coded Allergies: No Known Allergies (Unverified , 03/03/19) PADMINI LOPEZ MD Mar 05, 2019 10:44
== END 2019-03-05 12:00 | disposition home or self-care (01) | DRG 420 ==
LOC: M ED 10:51 → M ED INP 14:06 → M ICU 15:20
PROVIDERS: ADMIT Internal Medicine; ATTEND Internal Medicine
DX: E11.10 Type 2 diabetes mellitus with ketoacidosis without coma (principal); F10.20 Alcohol dependence, uncomplicated; Z79.82 Long term (current) use of aspirin; Z79.4 Long term (current) use of insulin; Z79.899 Other long term (current) drug therapy; E87.6 Hypokalemia

== ENCOUNTER 2019-03-17 09:00 | Outpatient (RCR) | payer BC ==
[~2019-03-17 09:00] MED LIST changes: +BUPR1TAB56 PO; +GABA-843 PO; +MAGN400T2 PO; +REME45TA2 PO
== END 2019-04-06 ==
LOC: M OUTALCOH 09:00
PROVIDERS: ATTEND Psychiatry & Neurology Psychiatry
DX: F10.20 Alcohol dependence, uncomplicated (principal); Z72.0 Tobacco use

== ENCOUNTER 2019-03-26 13:04 | Emergency (ER) | payer BC ==
[~2019-03-26] VITALS: Ht 175.3 cm; Wt 76.4 kg
[2019-03-26] MEDS ORDERED: ONDANSETRON 4MG/2ML VIAL (J2405) IV ONE (14:00)
[2019-03-26] MEDS ORDERED: INSULIN IV RATE CHANGE DOCUMENTATION ML/HR XX SCH (14:00)
[2019-03-26] MEDS ORDERED: INSULIN HUMAN REGULAR 100 UNITS in NS 99 ML IV SCH (14:00)
[2019-03-26] MEDS ORDERED: NS 1,000 ML IV ONE ×2 (14:00)
[2019-03-26] MEDS ORDERED: HumuLIN R (REGULAR) INSULIN (NovoLIN R) **100U/ML** PER UNIT IV ONE (14:00)
[2019-03-26 14:05] LABS: BASO # 0.1 10^3/uL (0.0-0.2); BASO % 0.3 % (0.0-1.0); HEMATOCRIT 42.1 % (42.0-52.0); HEMOGLOBIN 12.6 g/dl (13.5-17.5); LYMPH # 1.5 10^3/uL (1.5-4.5); LYMPH % 7.2 % (24.0-44.0); MEAN CORPUSCULAR HEMOGLOBIN 28.5 pg (27.0-33.0); MEAN CORPUSCULAR HGB CONC 29.9 g/dl (32.0-36.5); MEAN CORPUSCULAR VOLUME 95.2 fl (80.0-96.0); MONO # 1.4 10^3/uL (0.0-0.8); MONO % 6.7 % (0.0-5.0); NEUTROPHILS # 17.8 10^3/uL (1.8-7.7); NEUTROPHILS % 84.7 % (36.0-66.0); PLATELET COUNT, AUTOMATED 344 10^3/uL (150-450); RED BLOOD COUNT 4.42 10^6/uL (4.30-6.10)
[2019-03-26 14:06] LABS: VENOUS BASE EXCESS -23.9 (-2.0-2.0); VENOUS HCO3 3.6 MEQ/L (23.0-27.0); VENOUS O2 SATURATION 98.9 % (60.0-80.0); VENOUS PARTIAL PRESSURE O2 216.6 mmHg (30.0-50.0); VENOUS PH 7.093 UNITS (7.330-7.430); VENOUS STANDARD HCO3 7.9 MEQ/L
[2019-03-26] MEDS ORDERED: CALCIUM GLUCONATE 1,000 MG in D5W MINI-BAG PLUS 100 ML IV ONE (14:15)
[2019-03-26 14:21] LABS: HEMOGLOBIN A1c 11.7 %
[2019-03-26] MEDS ORDERED: fentaNYL 100 MCG/2 ML INJECTION (J3010) IV ONE (14:30)
--- NOTE | 2019-03-26 14:30 | REP ---
CHEST, SINGLE VIEW: There is no evidence of acute infiltrate. No pleural effusion is seen. The heart is normal in size. The mediastinal silhouette is unremarkable. The visualized osseous structures are intact. IMPRESSION: No acute pulmonary disease. Electronically Signed by Kuldip Braun MD 03/27/2019 10:07 P
[2019-03-26] MEDS ORDERED: PIPERACILLIN/TAZOBACTAM SOD 4.5 GM in D5W MINI-BAG PLUS 50 ML IV ONE (14:45)
[2019-03-26 14:46] LABS: INR 1.31
[2019-03-26 14:47] LABS: PARTIAL THROMBOPLASTIN TIME 29.7 SECONDS (25.0-38.4)
[2019-03-26 15:00] VITALS: BP 136/68
[2019-03-26 15:00] LABS: OSMOLALITY SERUM 356 MOSM/KG (275-295)
[2019-03-26] MEDS ORDERED: ADENOSINE 6MG/2ML INJECTION (J0153) IV STA ×3 (15:01→18:03)
[2019-03-26] MEDS ORDERED: ADENOSINE 6MG/2ML INJECTION (J0153) As Ordered ONE (15:02)
[2019-03-26 15:09] LABS: ACETONE/KETONE > 46.00 MG/DL (<2.81); ALBUMIN 3.5 GM/DL (3.2-5.2); ALT/SGPT 32 U/L (12-78); BILIRUBIN,DIRECT 0.1 MG/DL (0.0-0.2); BILIRUBIN,TOTAL 0.4 MG/DL (0.2-1.0); BLOOD UREA NITROGEN 35 MG/DL (7-18); CALCIUM LEVEL 8.3 MG/DL (8.5-10.1); CARBON DIOXIDE LEVEL 4 MEQ/L (21-32); CHLORIDE LEVEL 79 MEQ/L (98-107); CK-MB VALUE MASS 6.9 NG/ML (<3.6); CPK CREATINE PHOSPHOKINASE 246 U/L (39-308); CREATININE FOR GFR 2.18 MG/DL (0.70-1.30); ETHYL ALCOHOL (ETHANOL) 0.048 % (0.000-0.010); GLOMERULAR FILTRATION RATE 35.3 (>60); GLUCOSE, FASTING 841 MG/DL (70-100); LIPASE 54 U/L (73-393); MAGNESIUM LEVEL 2.4 MG/DL (1.8-2.4); PHOSPHORUS LEVEL 6.9 MG/DL (2.5-4.9); SODIUM LEVEL 124 MEQ/L (136-145); TOTAL PROTEIN 6.8 GM/DL (6.4-8.2); TROPONIN I 0.08 NG/ML (< 0.10)
--- NOTE | 2019-03-26 15:27 | REP ---
CT ABDOMEN AND PELVIS WITHOUT CONTRAST: CT abdomen and pelvis performed without oral or IV contrast. Sagittal and coronal reconstruction images are performed. Visualized lung bases are clear. Small to moderate hiatal hernia is noted. There is fatty infiltration of the liver. Spleen is normal in size with no definite intrinsic abnormality. The adrenals are unremarkable. The pancreas demonstrates an oval complex cystic structure in the body of the pancreas, which has remained stable since at least the exam of 11/27/2015. Small calcifications are seen in the pancreatic head. The kidneys are grossly unremarkable in appearance with no hydronephrosis or nephrolithiasis. There is mild atherosclerotic calcification of the abdominal aorta without aneurysm. I see no adenopathy. There is no free air or free fluid. No bowel wall thickening is seen. There are degenerative changes of the spine. There is no evidence of appendicitis. IMPRESSION: Mild to moderate hiatal hernia. Fatty infiltration of the liver. Chronic cystic lesion in the body of the pancreas is stable. No acute findings. Electronically Signed by Kuldip Braun MD 03/27/2019 10:18 P
--- NOTE | 2019-03-26 19:23 | ECGEPIP ---
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
--- NOTE | 2019-03-26 19:25 | ECGEPIP ---
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
== END 2019-03-26 15:36 | disposition short-term general hospital (02) ==
LOC: M ED 14:05
DX: I21.09 ST elevation (STEMI) myocardial infarction involving other coronary artery of anterior wall (principal); K92.2 Gastrointestinal hemorrhage, unspecified; R10.9 Unspecified abdominal pain; E10.10 Type 1 diabetes mellitus with ketoacidosis without coma; F10.10 Alcohol abuse, uncomplicated; N17.9 Acute kidney failure, unspecified; I49.2 Junctional premature depolarization; R06.00 Dyspnea, unspecified; R00.0 Tachycardia, unspecified; E87.2 Acidosis; E87.5 Hyperkalemia; I45.19 Other right bundle-branch block; I45.9 Conduction disorder, unspecified; Z72.0 Tobacco use; K44.9 Diaphragmatic hernia without obstruction or gangrene; K76.0 Fatty (change of) liver, not elsewhere classified; K86.2 Cyst of pancreas; Z79.82 Long term (current) use of aspirin; Z79.4 Long term (current) use of insulin; Z79.899 Other long term (current) drug therapy
CPT/HCPCS: 71045; 74176; 80047; 80048; 80076; 82010; 82550; 82553; 82803; 83036; 83605; 83690; 83735; 83930; 84100; 85025; 85610; 85730; 86850; 86900; 86901; 87040; 93005; 93041; 96361; 96374; 96375; 99291; G0480; J0153; J0610; J2405; J2543

== ENCOUNTER 2019-08-17 07:51 | Inpatient (IN) | payer BC, OTHER, SELFPAY ==
[~2019-08-17] VITALS: Ht 175.3 cm; Wt 72.5 kg
[2019-08-17] VITALS (7 sets, daily range): BP systolic 108–172; BP diastolic 58–88
[~2019-08-17 07:51] MED LIST changes: +METF-791 PO; -METF500T4 PO
[2019-08-17] MEDS ORDERED: INSULIN HUMAN REGULAR 100 UNITS in NS 99 ML IV SCH ×3 (08:21→22:00)
[2019-08-17] MEDS ORDERED: HumuLIN R (REGULAR) INSULIN (NovoLIN R) **100U/ML** PER UNIT IV ONE (08:30)
[2019-08-17] MEDS ORDERED: NS 1,000 ML IV ONE ×2 (08:30→12:00)
[2019-08-17] MEDS ORDERED: ATOR1TAB21 PO (08:43)
[2019-08-17] MEDS ORDERED: MED REC COMMENT (08:44)
[2019-08-17] MEDS ORDERED: ONDANSETRON 4MG/2ML VIAL (J2405) IV ONE (08:45)
[2019-08-17 09:14] LABS: BASO % 0.3 % (0.0-1.0); HEMATOCRIT 40.9 % (42.0-52.0); HEMOGLOBIN 12.2 g/dl (13.5-17.5); LYMPH # 0.8 10^3/uL (1.5-5.0); LYMPH % 4.8 % (24.0-44.0); MEAN CORPUSCULAR HEMOGLOBIN 24.6 pg (27.0-33.0); MEAN CORPUSCULAR HGB CONC 29.8 g/dl (32.0-36.5); MEAN CORPUSCULAR VOLUME 82.6 fl (80.0-96.0); MONO # 0.1 10^3/uL (0.0-0.8); MONO % 0.7 % (0.0-5.0); NEUTROPHILS # 14.8 10^3/uL (1.5-8.5); NEUTROPHILS % 93.6 % (36.0-66.0); PLATELET COUNT, AUTOMATED 265 10^3/uL (150-450); RED BLOOD COUNT 4.95 10^6/uL (4.30-6.10); WHITE BLOOD COUNT 15.8 10^3/uL (4.0-10.0)
[2019-08-17 09:16] LABS: VENOUS BASE EXCESS -18.9 (-2.0-2.0); VENOUS HCO3 6.2 MEQ/L (23.0-27.0); VENOUS O2 SATURATION 97.4 % (60.0-80.0); VENOUS PARTIAL PRESSURE CO2 14.9 mmHg (38.0-50.0); VENOUS PARTIAL PRESSURE O2 125.4 mmHg (30.0-50.0); VENOUS PH 7.236 UNITS (7.330-7.430); VENOUS STANDARD HCO3 10.5 MEQ/L; VENOUS TOTAL CO2 6.6 MEQ/L (24.0-28.0)
[2019-08-17] MEDS ORDERED: METO1TAB33 PO (09:28)
[2019-08-17] MEDS ORDERED: ATOR80TA59 PO (09:28)
[2019-08-17 09:41] LABS: ALT/SGPT 21 U/L (12-78); BILIRUBIN,DIRECT 0.2 MG/DL (0.0-0.2); BILIRUBIN,TOTAL 0.8 MG/DL (0.2-1.0); BLOOD UREA NITROGEN 22 MG/DL (7-18); CALCIUM LEVEL 6.6 MG/DL (8.5-10.1); CARBON DIOXIDE LEVEL 9 MEQ/L (21-32); CHLORIDE LEVEL 106 MEQ/L (98-107); CREATININE FOR GFR 1.05 MG/DL (0.70-1.30); GLOMERULAR FILTRATION RATE > 60.0 (>60); GLUCOSE, FASTING 426 MG/DL (70-100); LIPASE 37 U/L (73-393); MAGNESIUM LEVEL 1.4 MG/DL (1.8-2.4); POTASSIUM SERUM 3.8 MEQ/L (3.5-5.1); SODIUM LEVEL 141 MEQ/L (136-145); TOTAL PROTEIN 5.3 GM/DL (6.4-8.2)
[2019-08-17] MEDS ORDERED: MAG SULF 1GM/100ML (MAG RUN) 1 GM in IV 1 EA IV ONE (10:00)
[2019-08-17] MEDS ORDERED: NICOTINE 21MG/24HR 1 EA TRANSDERMAL TD ONE (11:30)
[2019-08-17] MEDS: PANTOPRAZOLE 40MG INJ (PROTONIX) (C9113) IV SCH (12:02)
[2019-08-17] MEDS: NICOTINE 21MG/24HR 1 EA TRANSDERMAL TD SCH (12:02)
[2019-08-17] MEDS: METOPROLOL SUCC (TopROL XL) 50MG **XL** TAB PO SCH (12:02)
[2019-08-17] MEDS: ENOXAPARIN 40 MG/0.4 ML SYRINGE (J1650) SC SCH (12:03)
[2019-08-17] MEDS: INSULIN IV RATE CHANGE DOCUMENTATION ML/HR XX SCH ×4 (12:59→19:21)
[2019-08-17] MEDS ORDERED: NS 1,000 ML IV SCH (13:00)
[2019-08-17 13:09] LABS: HEMOGLOBIN A1c 10.7 %
[2019-08-17] MEDS ORDERED: ONDANSETRON 4MG/2ML VIAL (J2405) IV PRN ×2 (13:15→15:30)
[2019-08-17 13:24] LABS: ACETONE/KETONE > 46.00 MG/DL (<2.81); BLOOD UREA NITROGEN 30 MG/DL (7-18); CALCIUM LEVEL 9.2 MG/DL (8.5-10.1); CARBON DIOXIDE LEVEL 17 MEQ/L (21-32); CHLORIDE LEVEL 98 MEQ/L (98-107); CREATININE FOR GFR 1.56 MG/DL (0.70-1.30); GLOMERULAR FILTRATION RATE 51.7 (>60); GLUCOSE, FASTING 225 MG/DL (70-100); PHOSPHORUS LEVEL 2.1 MG/DL (2.5-4.9); POTASSIUM SERUM 4.4 MEQ/L (3.5-5.1); SODIUM LEVEL 137 MEQ/L (136-145)
[2019-08-17 13:36] LABS: OSMOLALITY SERUM 310 MOSM/KG (275-295)
[2019-08-17] MEDS: MULTIVITAMINS/MINERALS THERAP 1 TAB PO SCH (13:47)
[2019-08-17] MEDS: ASPIRIN 81 MG CHEW TABLET PO SCH (13:47)
[2019-08-17] MEDS: FOLIC ACID 1 MG TAB PO SCH (13:47)
[2019-08-17] MEDS: THIAMINE 100 MG TAB PO SCH ×2 (13:47→21:11)
[2019-08-17] MEDS: LORazepam 2 MG TAB PO PRN ×3 (14:31→22:50)
[2019-08-17] MEDS ORDERED: PILL CUTTER 1 EACH XX PRN (15:15)
[2019-08-17 15:37] LABS: CALCIUM LEVEL 8.8 MG/DL (8.5-10.1); CREATININE FOR GFR 1.48 MG/DL (0.70-1.30); PHOSPHORUS LEVEL 1.9 MG/DL (2.5-4.9)
[2019-08-17] MEDS ORDERED: D5W/0.45% SODIUM CHLORIDE 1,000 ML IV SCH (16:15)
[2019-08-17] MEDS: METOCLOPRAMIDE INJ 10MG/2ML VIAL (J2765) IV PRN (16:15)
[2019-08-17] MEDS: ACETAMINOPHEN TAB 650MG DOSE (2X325MG) PO PRN (16:16)
[2019-08-17] MEDS ORDERED: KCL 20MEQ IN D5/0.45NS 1000ML 1,000 ML IV SCH (17:00)
[2019-08-17] MEDS ORDERED: LEVEMIR (INSULIN DETEMIR) 1 UNITS/0.01ML SC ONE (17:00)
--- NOTE | 2019-08-17 17:21 | HPEPDOC ---
General Date of Admission Aug 17, 2019 at 10:52 Date of Service: Aug 17, 2019 Attending Physician: IGNACIO PURVIS MD Chief Complaint The patient is a 44-year-old male admitted with a reason for visit of Diabetic Ketoacidosis. 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 The abdominal discomfort is nonradiating dull achy pain, and he denies any fevers, chills, shortness of breath, hematemesis, hemoptysis, chest pain or palpitations. He also denies any change in his bowel or urinary habits. In the ED, he was hemodynamically stable with severe nausea that did not remit despite zofran 4mg and evaluation showed a non ischemic EKG, negative troponin, but with elevated glucose to 436, low bicarbonate of 9 and anion gap metabolic acidosis with a gap of 26, as well as beta hydroxybutyrate >46, consistent with DKA. He was started on an insulin gtt and admitted to the ICU after a total of 2L NS. In the ICU he continued to have nausea requiring zofran and reglan, and his gap eventually closed and will be transitioned to SC insulin. His course in the ICU is c/b fever, tachycardia. Home Medications Scheduled Aspirin (Aspirin) 81 Mg Chw, 81 MG PO QAM, (Reported) Atorvastatin Calcium (Atorvastatin Calcium) 80 Mg Tablet, 80 MG PO QHS, ( Reported) Folic Acid (Folic Acid) 1 Mg Tablet, 1 MG PO QAM, (Reported) Gabapentin (Gabapentin) 300 Mg Capsule, 300 MG PO QHS, (Reported) Insulin Glargine,Hum.rec.anlog (Lantus Solostar) 100 Unit/Ml Inj, 62 UNITS SC QHS, (Reported) Insulin Human Lispro (Novolog) 100 U/Ml Inj, 1 DOSE SC AC, (Reported) PER SLIDING SCALE Metoprolol Succinate (Metoprolol Succinate) 100 Mg Tab.er.24h, 50 MG PO DAILY, (Reported) Multivitamins (Child Chew Vitamin) 1 Tab Chew, 2 TAB PO QAM, (Reported) Pantoprazole Sodium (Pantoprazole Sodium) 40 Mg Tab, 40 MG PO QAM, (Reported) Thiamine HCl (Vitamin B-1) 100 Mg Tab, 100 MG PO QAM, (Reported) Allergies Coded Allergies: No Known Allergies (Unverified , 03/03/19) Past Medical History Medical History insulin-dependent diabetes mellitus, hypertension, hyperlipidemia, acid reflux and alcohol use disorder Family History Significant Family History: No pertinent family hx Social History * Smoker: current smoker Alcohol: heavy Drugs: denies Recent Travel/Sick Contacts: Denies: Recent travel, Recent sick contacts Psychosocial History: No pertinent psych hx A-FIB/CHADSVASC A-FIB History Current/History of A-Fib/PAF?: No Current PO Anticoag Therapy: No Age/Risk Factor Scoring CHADSVASC: CHADSVASC Response (Comments) Value Age Risk Factor Age < 65 years old 0 Gender Risk Factor Male 0 Hx of CHF No 0 Hx of HTN Yes 1 Hx of Diabetes Yes 1 Hx of Vascular Disease No 0 Total 2 Treatment Treatment ordered: NONE Reason Anticoagulant not given: Not indicated/[id number] Review of Systems Constitutional: Denies: Chills, Fever, Night Sweats Eyes: Denies: Pain, Vision change ENT: Denies: Head Aches, Ear Pain, Dysphagia Skin: Denies: Rash, Lesions, Breakdown Pulmonary: Denies: Dyspnea, Cough Cardiovascular: Denies: Chest Pain, Palpitations, Orthopnea, Paroxysmal Noc. Dyspnea, Lt Headedness Gastrointestinal: Reports: Nausea, Vomiting, Abdominal Pain; Denies: Diarrhea, Constipation, Melena, Hematochezia Genitourinary: Denies: Dysuria, Frequency, Incontinence, Retention Hematologic: Denies: Bruising, Bleeding Excessively Endocrine: Reports: Polyuria Musculoskeletal: Denies: Neck Pain, Back Pain, Joint Pain, Muscle Pain, Spasms Neurological: Denies: Weakness, Numbness, Change in speech, Confusion Psych: Reports: Mood Normal; Denies: Depression, Memory Issues Physical Examination General Exam: Positive: Alert, No Acute Distress Eye Exam: Positive: PERRLA, Conjunctiva & lids normal, EOMI; Negative: Sclera icteric ENT Exam: Positive: Atraumatic, Mucous membr. moist/pink, Pharynx Normal Neck Exam: Positive: Supple; Negative: JVD, thyromegaly Chest Exam: Positive: Clear to auscultation, Normal air movement Heart Exam: Positive: Rate Normal, Regular Rhythm, Normal S1, Normal S2; Negative: Murmurs, Rubs Telemetry: Positive: No significant arrhythmia Abdomen Exam: Positive: Normal bowel sounds, Soft, Tenderness (mild tenderness diffusely to palpation); Negative: Hepatospenomegaly Extremity Exam: Positive: Normal pulses; Negative: Clubbing, Cyanosis, Edema Skin Exam: Positive: Nl turgor and temperature; Negative: Breakdown, Lesion Neuro Exam: Positive: Normal Gait, Normal Speech, Cranial Nerves 3-12 NL, Reflexes 2+ Psych Exam: Positive: Mental status NL, Mood NL, Oriented x 3 Vital Signs Vital Signs Date Time Temp Pulse Resp B/P (MAP) Pulse Ox O2 Delivery O2 Flow Rate FiO2 08/17/19 16:00 101.4 115 18 135/81 (99) 98 Room Air Laboratory Data Labs 24H Laboratory Tests 2 08/17/19 08:49: Bedside Glucose (Misc Panel) 519*H 08/17/19 09:03: Immature Granulocyte % (Auto) 0.6, Neutrophils (%) (Auto) 93.6H, Lymphocytes (%) (Auto) 4.8L, Monocytes (%) (Auto) 0.7, Eosinophils (%) (Auto) 0.0, Basophils (%) (Auto) 0.3, Neutrophils # (Auto) 14.8H, Lymphocytes # (Auto) 0.8L, Monocytes # (Auto) 0.1, Eosinophils # (Auto) 0.0, Basophils # (Auto) 0.0, Nucleated Red Blood Cells % (auto) 0.1H, Blood Gas Bicarbonate Standard 10.5, Venous Blood pH 7.236L, Venous Blood Partial Pressure CO2 14.9L, Venous Blood Partial Pressure O2 125.4H, Venous Blood Total Carbon Dioxide 6.6L, Venous Blood HCO3 6.2L, Venous Blood Oxygen Saturation 97.4H, Venous Blood Base Excess -18.9L, Anion Gap 26H, Glomerular Filtration Rate > 60.0, Calcium Level 6.6L, Magnesium Level 1 .4L, Total Bilirubin 0.8, Direct Bilirubin 0.2, Aspartate Amino Transf (AST/SGOT) 15, Alanine Aminotransferase (ALT/SGPT) 21, Alkaline Phosphatase 104, Total Protein 5.3L, Albumin 3.0L, Albumin/Globulin Ratio 1.30, Lipase 37L 08/17/19 10:09: Bedside Glucose (Misc Panel) 377H 08/17/19 10:11: Urine Color STRAW, Urine Appearance CLEAR, Urine pH 5.0, Urine Specific [place] 1.018, Urine Protein NEGATIVE, Urine Glucose (UA) 3+H, Urine Ketones 2+H, Urine Blood 1+H, Urine Nitrite NEGATIVE, Urine Bilirubin NEGATIVE, Urine Urobilinogen 0.2, Urine Leukocyte Esterase NEGATIVE, Urine WBC (Auto) 0, Urine RBC (Auto) 0, Urine Hyaline Casts (Auto) 1, Urine Bacteria (Auto) NEGATIVE, Urine Squamous Epithelial Cells 0, Urine Mucus (Auto) SMALL, Urine Sperm (Auto) 08/17/19 11:55: Bedside Glucose (Misc Panel) 228H 08/17/19 12:33: Anion Gap 22H, Glomerular Filtration Rate 51.7L, Estimated Mean Plasma Glucose 260H, Hemoglobin A1c 10.7, Osmolality 310H, Calcium Level 9.2#, Phosphorus Level 2.1L, B-Hydroxybutyrate > 46.00H 08/17/19 12:44: 08/17/19 12:57: Bedside Glucose (Misc Panel) 188H 08/17/19 14:04: Bedside Glucose (Misc Panel) 134H 08/17/19 15:04: Bedside Glucose (Misc Panel) 141H, Anion Gap 15, Glomerular Filtration Rate 55.0L, Calcium Level 8.8, Phosphorus Level 1.9L 08/17/19 16:08: Bedside Glucose (Misc Panel) 146H CBC/BMP Laboratory Tests 08/17/19 09:03 08/17/19 12:33 08/17/19 15:04 Microbiology Microbiology 08/17/19 Blood Culture, Received Pending 08/17/19 Blood Culture, Received Pending Assessment/Plan 43-year-old man with 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 1. Diabetic ketoacidosis with systemic inflammatory response syndrome given fever, tachycardia and tachypnea without clear evidence or source of infection at this time. -Presented with hyperglycemia, low bicarb and high anion gap with elevated beta hydroxybutyrate c/w DKA -s/p 2L NS in the ED and started on insulin gtt -Was continued on fluids with frequent glucose and electrolyte checks with gap now closed -with ongoing clamping bridging to home levemir on D51/2NS w/ 20meq K -Given ongoing N/V with delay starting diet -Will monitor serial biochemistry laboratory values to assess response to fluid resuscitation and bridging -Will keep in ICU for the night and likely transfer to the floor tomorrow -May advance diet as tolerated as N/V get better, currently placed on reglan/zofran Q6H PRN 2. Acute kidney injury, likely secondary to dehydration due to diabetic ketoacidosis (DKA). -Will monitor trend with hydration 3. Hypertension. -Continue home regimen 4. Hyperlipidemia. -continue home pravastatin. 5. Gastroesophageal reflux disease -currently on protonix 6. Recurrent pancreatitis secondary to alcohol abuse with known pseudocyst. Patient normally on Creon, which apparently is non-formulary. 7. Alcohol use disorder. -[facility] protocol -Thiamine -Folate 8. Deep vein thrombosis (DVT) prophylaxis - Lovenox 9. Gastrointestinal (GI) prophylaxis - Protonix. Diet: NPO until N/V subsides, and then advance as tolerated to consistent carb Plan / VTE VTE Prophylaxis Ordered?: Yes IGNACIO PURVIS MD Aug 17, 2019 17:06
--- NOTE | 2019-08-17 17:36 | REPVR ---
PROCEDURE INFORMATION: Exam: CT Abdomen And Pelvis Without Contrast Exam date and time: 08/17/2019 5:13 PM Age: 44 years old Clinical history: Abdominal pain; Additional info: Dka with n/a now with fever TECHNIQUE: Imaging protocol: Computed tomography of the abdomen and pelvis without contrast. Radiation optimization: All CT scans at this facility use at least one of these dose optimization techniques: automated exposure control; mA and/or kV adjustment per patient size (includes targeted exams where dose is matched to clinical indication); or iterative reconstruction. COMPARISON: CT ABD PELVIS W/O CONTRAST 03/26/2019 2:31 PM FINDINGS: Mediastinum: There is increased circumferential thickening of the wall of the distal esophagus. There is a small hiatal hernia. Liver: There is a diffuse decrease in hepatic parenchymal density, consistent with fatty infiltration. Gallbladder and bile ducts: Increased density within the lumen of the gallbladder may indicate the presence of sludge. No calcific calculi demonstrated. Pancreas: There is a hypodense complex mass in the body and proximal tail of the pancreas measuring 4.9 x 3.3 cm with soft tissue density demonstrated within the mass. Lesion characterization is limited on this noncontrast evaluation. Finding is grossly unchanged in comparison to prior studies. There are multiple pancreatic parenchymal calcifications, consistent with chronic pancreatitis. Spleen: Normal. No splenomegaly. Adrenals: Normal. No mass. Kidneys and ureters: There is stranding demonstrated adjacent to the left kidney in the perinephric space. Finding has been demonstrated previously suggesting that it represents chronic scarring. Clinical correlation to exclude pyelonephritis suggested, again with evaluation limited on this noncontrast study. Stomach and bowel: There is increased feces throughout the colon consistent with constipation. Appendix: No evidence of appendicitis. Intraperitoneal space: Unremarkable. No free air. No significant fluid collection. Vasculature: The aorta demonstrates mild atherosclerotic calcification. Lymph nodes: Unremarkable. No enlarged lymph nodes. Bladder: Unremarkable as visualized. Reproductive: The prostate gland demonstrates moderate hyperplasia. Bones/joints: Unremarkable. No acute fracture. Soft tissues: Unremarkable. IMPRESSION: 1. There is a diffuse decrease in hepatic parenchymal density, consistent with fatty infiltration. 2. Increased density within the lumen of the gallbladder may indicate the presence of sludge. No calcific calculi demonstrated. 3. Thickened wall of the distal esophagus. Finding may be related to reflux esophagitis however an esophageal neoplasm should be excluded clinically. 4. There is a hypodense complex mass in the body and proximal tail of the pancreas measuring 4.9 x 3.3 cm with soft tissue density demonstrated within the mass. Lesion characterization is limited on this noncontrast evaluation. Finding is grossly unchanged in comparison to prior studies. 5. There is increased feces throughout the colon consistent with constipation. 6. Moderate prostatic hyperplasia. 7. There is stranding demonstrated adjacent to the left kidney in the perinephric space. Finding has been demonstrated previously suggesting that it represents chronic scarring. Clinical correlation to exclude pyelonephritis suggested, again with evaluation limited on this noncontrast study. Electronically signed by: Hugo Juarez On 08/17/2019 17:36:14 PM
[2019-08-17] MEDS ORDERED: GLUCOSE 4 GM CHEW TABLET PO PRN (20:15)
[2019-08-17] MEDS ORDERED: GLUCAGON FOR INJ 1 MG VIAL (J1610) SC PRN (20:15)
[2019-08-17] MEDS ORDERED: DEXTROSE 50% 50 ML SYRINGE IV PRN (20:15)
[2019-08-17 20:37] LABS: OSMOLALITY SERUM 300 MOSM/KG (275-295)
[2019-08-17 20:51] LABS: BLOOD UREA NITROGEN 31 MG/DL (7-18); CALCIUM LEVEL 8.4 MG/DL (8.5-10.1); CARBON DIOXIDE LEVEL 26 MEQ/L (21-32); CHLORIDE LEVEL 104 MEQ/L (98-107); CREATININE FOR GFR 1.29 MG/DL (0.70-1.30); GLOMERULAR FILTRATION RATE > 60.0 (>60); GLUCOSE, FASTING 151 MG/DL (70-100); PHOSPHORUS LEVEL 2.2 MG/DL (2.5-4.9); SODIUM LEVEL 138 MEQ/L (136-145)
[2019-08-17] MEDS: HumaLOG INSULIN (NovoLOG) PER UNIT SC SCH (21:00)
[2019-08-17] MEDS: GABAPENTIN 300 MG CAP PO SCH (21:11)
[2019-08-17] MEDS: ATORVASTATIN 20 MG TAB PO SCH (21:11)
[2019-08-18] VITALS (8 sets, daily range): BP systolic 128–143; BP diastolic 68–88
[2019-08-18] MEDS: LORazepam 2 MG TAB PO PRN ×2 (05:03→16:53)
[2019-08-18 05:09] LABS: HEMATOCRIT 35.3 % (42.0-52.0); HEMOGLOBIN 11.4 g/dl (13.5-17.5); MEAN CORPUSCULAR HEMOGLOBIN 24.8 pg (27.0-33.0); MEAN CORPUSCULAR HGB CONC 32.3 g/dl (32.0-36.5); MEAN CORPUSCULAR VOLUME 76.7 fl (80.0-96.0); PLATELET COUNT, AUTOMATED 207 10^3/uL (150-450); WHITE BLOOD COUNT 10.8 10^3/uL (4.0-10.0)
[2019-08-18 05:26] LABS: OSMOLALITY SERUM 291 MOSM/KG (275-295)
[2019-08-18 05:29] LABS: ACETONE/KETONE 19.84 MG/DL (<2.81); BLOOD UREA NITROGEN 26 MG/DL (7-18); CALCIUM LEVEL 8.5 MG/DL (8.5-10.1); CARBON DIOXIDE LEVEL 27 MEQ/L (21-32); CHLORIDE LEVEL 102 MEQ/L (98-107); CREATININE FOR GFR 1.02 MG/DL (0.70-1.30); GLOMERULAR FILTRATION RATE > 60.0 (>60); GLUCOSE, FASTING 46 MG/DL (70-100); MAGNESIUM LEVEL 2.1 MG/DL (1.8-2.4); PHOSPHORUS LEVEL 2.1 MG/DL (2.5-4.9); POTASSIUM SERUM 3.4 MEQ/L (3.5-5.1); SODIUM LEVEL 139 MEQ/L (136-145)
[2019-08-18] MEDS ORDERED: POTASSIUM CHLORIDE 10 MEQ SR TABLET PO ONE (07:00)
[2019-08-18] MEDS: HumaLOG INSULIN (NovoLOG) PER UNIT SC SCH ×4 (07:39→21:53)
[2019-08-18] MEDS: PANTOPRAZOLE 40MG INJ (PROTONIX) (C9113) IV SCH (07:39)
[2019-08-18] MEDS: NICOTINE 21MG/24HR 1 EA TRANSDERMAL TD SCH (07:40)
[2019-08-18] MEDS: ASPIRIN 81 MG CHEW TABLET PO SCH (07:40)
[2019-08-18] MEDS: FOLIC ACID 1 MG TAB PO SCH (07:41)
[2019-08-18] MEDS: THIAMINE 100 MG TAB PO SCH ×2 (07:41→21:54)
[2019-08-18] MEDS: MULTIVITAMINS/MINERALS THERAP 1 TAB PO SCH (07:41)
[2019-08-18] MEDS: ENOXAPARIN 40 MG/0.4 ML SYRINGE (J1650) SC SCH (07:41)
[2019-08-18] MEDS: METOPROLOL SUCC (TopROL XL) 50MG **XL** TAB PO SCH (07:42)
[2019-08-18] MEDS: METOCLOPRAMIDE INJ 10MG/2ML VIAL (J2765) IV PRN (07:50)
[2019-08-18] MEDS: ACETAMINOPHEN TAB 650MG DOSE (2X325MG) PO PRN ×3 (08:59→21:54)
--- NOTE | 2019-08-18 16:26 | IPNPDOC ---
Text Note Date of Service The patient was seen on 08/18/19. NOTE Subjective: -Improved N/V -Started on a diet, tolerating PO Interim events: -Gap closed, transitioned from insulin gtt to levemir and SSI with diet -remains on CIWA -Had fever, cultured and CT A/P with stable findings from prior, no abx Objective: General: NAD HEENT: NCAT, PERRLA, EOMI, anicteric, clear posterior oropharynx Neck: supple, no JVD Pulm: CTAB Cardiac: tachycardic, regular rhythm, no noted mrg Abd: mild tenderness diffusely on palpation, soft, normoactive Ext: No LE edema, WWP Neuro: AOx3, CN2-12 intact, moving all extremities Psych: AOx3, normal affect Labs: Reviewed, K 3.4 repleted, Cr normalized 1.02, Mag 2.1, WBC 10.8, H/H 11.4/35.3, Platelets 207 Imagin/11: CT A/P 1. There is a diffuse decrease in hepatic parenchymal density, consistent with fatty infiltration. 2. Increased density within the lumen of the gallbladder may indicate the p resence of sludge. No calcific calculi demonstrated. 3. Thickened wall of the distal esophagus. Finding may be related to reflux esophagitis however an esophageal neoplasm should be excluded clinically. 4. There is a hypodense complex mass in the body and proximal tail of the pancreas measuring 4.9 x 3.3 cm with soft tissue density demonstrated within the mass. Lesion characterization is limited on this noncontrast evaluation. Finding is grossly unchanged in comparison to prior studies. 5. There is increased feces throughout the colon consistent with constipation. 6. Moderate prostatic hyperplasia. 7. There is stranding demonstrated adjacent to the left kidney in the perinephric space. Finding has been demonstrated previously suggesting that it represents chronic scarring. Clinical correlation to exclude pyelonephritis suggested, again with evaluation limited on this noncontrast study. 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 Plan: 1. Diabetic ketoacidosis with systemic inflammatory response syndrome given fever, tachycardia and tachypnea without clear evidence or source of infection at this time. -Presented with hyperglycemia, low bicarb and high anion gap with elevated betahydroxybutyrate c/w DKA -s/p 2L NS in the ED and started on insulin gtt and fluids --> now transitioned to home levemir and SSI -monitor daily BMPs -consistent carb diet -reglan/zofran Q6H PRN 2. Acute kidney injury secondary to dehydration in the setting of diabetic ketoacidosis (DKA). -resolved s/p hydration 3. Hypertension. -Continue home regimen 4. Hyperlipidemia. -continue home pravastatin. 5. Gastroesophageal reflux disease -currently on protonix 6. Recurrent pancreatitis secondary to alcohol abuse with known pseudocyst, seen on imaging. Patient normally on Creon, which apparently is non-formulary. 7. Alcohol use disorder. -[facility] protocol -Thiamine -Folate 8. Deep vein thrombosis (DVT) prophylaxis - Lovenox 9. Gastrointestinal (GI) prophylaxis - Protonix. Diet: consistent carb Dispo: Floor from ICU, home tomorrow VS,Juanjo, I+O VS, Juanjo, I+O Laboratory Tests 08/17/19 09:03 08/17/19 12:33 08/17/19 15:04 08/17/19 19:37 08/18/19 04:48 Vital Signs Date Time Temp Pulse Resp B/P (MAP) Pulse Ox O2 Delivery O2 Flow Rate FiO2 08/18/19 05:00 104 137/77 08/18/19 04:00 99.8 20 99 Room Air I&O- Last 24 Hours up to 6 AM 08/18/19 06:00 Intake Total 4613.8 ml Output Total 1350 ml Balance 3263.8 ml IGNACIO PURVIS MD Aug 18, 2019 06:32
--- NOTE | 2019-08-18 17:44 | ECGEPIP ---
[facility] - ED Test Date: 2019-08-17 Pat Name: FALGUNI ALSTON Department: Room: - Gender: Male Menu Planner: keanu carroll : 1975 Requested By: Ulysses Tolliver Order Number: [id number] Reading MD: Nani Horton Measurements Intervals [place] Rate: 115 P: 86 [place]: 108 QRS: 81 QRSD: 92 T: 71 QT: 312 QTc: 433 Interpretive Statements SINUS TACHYCARDIA WITH SHORT [place] INTERVAL ABNORMAL RHYTHM ECG IRBBB POSSIBLE PRIOR ANTERIOR INFARCT Electronically Signed on 08-18-2019 17:44:17 EST by Nani Horton
[2019-08-18] MEDS ORDERED: LEVEMIR (INSULIN DETEMIR) 1 UNITS/0.01ML SC SCH (21:00)
[2019-08-18] MEDS: ATORVASTATIN 20 MG TAB PO SCH (21:53)
[2019-08-18] MEDS: GABAPENTIN 300 MG CAP PO SCH (21:54)
[2019-08-19 02:00] VITALS: BP 131/69
[2019-08-19 05:48] VITALS: BP 114/70
[2019-08-19 06:18] LABS: HEMATOCRIT 37.8 % (42.0-52.0); HEMOGLOBIN 11.6 g/dl (13.5-17.5); MEAN CORPUSCULAR HEMOGLOBIN 24.1 pg (27.0-33.0); MEAN CORPUSCULAR HGB CONC 30.7 g/dl (32.0-36.5); MEAN CORPUSCULAR VOLUME 78.6 fl (80.0-96.0); PLATELET COUNT, AUTOMATED 174 10^3/uL (150-450); RED BLOOD COUNT 4.81 10^6/uL (4.30-6.10); WHITE BLOOD COUNT 5.3 10^3/uL (4.0-10.0)
[2019-08-19 06:41] LABS: BLOOD UREA NITROGEN 14 MG/DL (7-18); CALCIUM LEVEL 8.6 MG/DL (8.5-10.1); CARBON DIOXIDE LEVEL 29 MEQ/L (21-32); CHLORIDE LEVEL 105 MEQ/L (98-107); CREATININE FOR GFR 0.78 MG/DL (0.70-1.30); GLOMERULAR FILTRATION RATE > 60.0 (>60); GLUCOSE, FASTING 143 MG/DL (70-100); MAGNESIUM LEVEL 2.2 MG/DL (1.8-2.4); PHOSPHORUS LEVEL 2.6 MG/DL (2.5-4.9); POTASSIUM SERUM 3.4 MEQ/L (3.5-5.1); SODIUM LEVEL 139 MEQ/L (136-145)
[2019-08-19] MEDS ORDERED: POTASSIUM CHLORIDE 10 MEQ SR TABLET PO ONE (06:45)
--- NOTE | 2019-08-19 06:54 | DS.PDOC ---
Discharge Summary General Date of Admission Aug 17, 2019 at 10:52 Date of Discharge 08/19/2019 Attending Physician: IGNACIO PURVIS MD Discharge Summary PROCEDURES PERFORMED DURING STAY: None ADMITTING DIAGNOSES: 1. DKA DISCHARGE DIAGNOSES: 1. DKA 2. Alcohol use disorder with withdrawal 3. Chronic pancreatitis 4. Hypertension 5. Hyperlipidemia 6. GERD 7. SIRS without focal infection COMPLICATIONS/CHIEF COMPLAINT: Diabetic Ketoacidosis. HISTORY OF PRESENT ILLNESS: 43-year-old man with pancreatogenic insulin-dependent diabetes mellitus 2/2 chronic pancreatitis 2/2 still active alcohol use disorder, hypertension, hyperlipidemia, acid reflux and frequent ED presentations of DKA with excessive alcohol use, who presented to the ED reporting 1 day history of severe nausea and nonbloody, nonbilious emesis in the setting of recent binge drinking for a couple of days a "few days" ago, with abdominal discomfort. The abdominal discomfort was nonradiating dull achy pain, and he denied any fevers, chills, shortness of breath, hematemesis, hemoptysis, chest pain or palpitations. HOSPITAL COURSE: In the ED, he was hemodynamically stable with severe nausea that did not remit despite zofran 4mg and evaluation showed a non ischemic EKG, negative troponin, but with elevated glucose to 436, low bicarbonate of 9 and anion gap metabolic acidosis with a gap of 26, as well as beta hydroxybutyrate >46, consistent with DKA. He was started on an insulin gtt and admitted to the ICU after a total of 2L NS. In the ICU he continued to have nausea requiring zofran and reglan, and his gap eventually closed and will be transitioned to SC insulin. His course in the ICU was c/b SIRS criteria with fever and tachycardia with a grossly non focal examination for which he had blood cultures, CT A/P without evidence of a focal infection or new findings from prior, and was deemed likely 2/2 alcohol withdrawal. He was on CICT protocol for alcohol withdrawal without any compl ications. With the resolution of his DKA, his abdominal discomfort improved and he was placed on a consistent carb diet with 2g sodium that he tolerated well. He is now being discharged home to follow up with his PCP outpatient. DISCHARGE MEDICATIONS: Please see below. ALLERGIES: Please see below. PHYSICAL EXAMINATION ON DISCHARGE: VITAL SIGNS: Please see below. General: NAD HEENT: NCAT, PERRLA, EOMI, anicteric, clear posterior oropharynx Neck: supple, no JVD Pulm: CTAB Cardiac: tachycardic, regular rhythm, no noted mrg Abd: mild tenderness diffusely on palpation, soft, normoactive Ext: No LE edema, WWP Neuro: AOx3, CN2-12 intact, moving all extremities Psych: AOx3, normal affect LABORATORY DATA: Please see below. IMAGING: CT A/P: 1. There is a diffuse decrease in hepatic parenchymal density, consistent with fatty infiltration. 2. Increased density within the lumen of the gallbladder may indicate the presence of sludge. No calcific calculi demonstrated. 3. Thickened wall of the distal esophagus. Finding may be related to reflux esophagitis however an esophageal neoplasm should be excluded clinically. 4. There is a hypodense complex mass in the body and proximal tail of the pancreas measuring 4.9 x 3.3 cm with soft tissue density demonstrated within the mass. Lesion characterization is limited on this noncontrast evaluation. Finding is grossly unchanged in comparison to prior studies. 5. There is increased feces throughout the colon consistent with constipation. 6. Moderate prostatic hyperplasia. 7. There is stranding demonstrated adjacent to the left kidney in the perinephric space. Finding has been demonstrated previously suggesting that it represents chronic scarring. Clinical correlation to exclude pyelonephritis suggested, again with evaluation limited on this noncontrast study. PROGNOSIS: Good, if he abstains from alcohol use. Counseled heavily on this matter. ACTIVITY: As tolerated DIET: Consistent carb, 2g sodium DISCHARGE PLAN: Home with PCP follow up DISPOSITION: Home DISCHARGE INSTRUCTIONS: 1. Please abstain from alcohol, and please take your insulin as prescribed. ITEMS TO FOLLOWUP ON ON OUTPATIENT: 1. Alcohol cessation. Has insurance changes with lapse in prescription coverage and so coverage for acamprosate is complicated at this time. As soon as this is sorted, would greatly benefit from cessation medications. PCP to follow up. DISCHARGE CONDITION: Stable TIME SPENT ON DISCHARGE: 41 minutes. Vital Signs/I&Os Vital Signs Date Time Temp Pulse Resp B/P (MAP) Pulse Ox O2 Delivery O2 Flow Rate FiO2 08/19/19 05:48 98.6 83 20 114/70 (85) 95 Room Air I&O- Last 24 Hours up to 6 AM 08/19/19 06:00 Intake Total 3150 ml Output Total 450 ml Balance 2700 ml Laboratory Data Labs 24H Laboratory Tests 2 08/18/19 07:30: Bedside Glucose (Misc Panel) 147H 08/18/19 11:36: Bedside Glucose (Misc Panel) 213H 08/18/19 17:17: Bedside Glucose (Misc Panel) 400H 08/18/19 21:06: Bedside Glucose (Misc Panel) 269H 08/19/19 05:34: Nucleated Red Blood Cells % (auto) 0.0, Anion Gap 5L, Glomerular Filtration Rate > 60.0, Calcium Level 8.6, Phosphorus Level 2.6#, Magnesium Level 2.2 CBC/BMP Laboratory Tests 08/19/19 05:34 FSBS Laboratory Tests Test 08/18/19 07:30 08/18/19 11:36 08/18/19 17:17 08/18/19 21:06 Range/Units Bedside Glucose (Misc Panel) 147 213 400 269 70-105 MG/DL Microbiology Microbiology 08/17/19 Blood Culture - Preliminary, Resulted No growth after 24 hours . All specim... 08/17/19 Blood Culture - Preliminary, Resulted No growth after 24 hours . All specim... Discharge Medications Scheduled Aspirin (Aspirin) 81 Mg Chw, 81 MG PO QAM, (Reported) Atorvastatin Calcium (Atorvastatin Calcium) 80 Mg Tablet, 80 MG PO QHS, (Reported) Folic Acid (Folic Acid) 1 Mg Tablet, 1 MG PO QAM, (Reported) Gabapentin (Gabapentin) 300 Mg Capsule, 300 MG PO QHS, (Reported) Insulin Glargine,Hum.rec.anlog (Lantus Solostar) 100 Unit/Ml Inj, 62 UNITS SC QHS, (Reported) Insulin Human Lispro (Novolog) 100 U/Ml Inj, 1 DOSE SC AC, (Reported) PER SLIDING SCALE Metoprolol Succinate (Metoprolol Succinate) 100 Mg Tab.er.24h, 50 MG PO DAILY, (Reported) Multivitamins (Child Chew Vitamin) 1 Tab Chew, 2 TAB PO QAM, (Reported) Pantoprazole Sodium (Pantoprazole Sodium) 40 Mg Tab, 40 MG PO QAM, (Reported) Thiamine HCl (Vitamin B-1) 100 Mg Tab, 100 MG PO QAM, (Reported) Allergies Coded Allergies: No Known Allergies (Unverified , 03/03/19) IGNACIO PURVIS MD Aug 19, 2019 06:54
[2019-08-19 07:02] VITALS: BP 114/70
[2019-08-19] MEDS: HumaLOG INSULIN (NovoLOG) PER UNIT SC SCH (07:30)
[2019-08-19] MEDS: ASPIRIN 81 MG CHEW TABLET PO SCH (08:31)
[2019-08-19] MEDS: NICOTINE 21MG/24HR 1 EA TRANSDERMAL TD SCH (08:31)
[2019-08-19 08:33] VITALS: BP 140/72
[2019-08-19] MEDS: MULTIVITAMINS/MINERALS THERAP 1 TAB PO SCH (08:33)
[2019-08-19] MEDS: FOLIC ACID 1 MG TAB PO SCH (08:33)
[2019-08-19] MEDS: METOPROLOL SUCC (TopROL XL) 50MG **XL** TAB PO SCH (08:33)
[2019-08-19] MEDS: THIAMINE 100 MG TAB PO SCH (08:33)
[2019-08-19] MEDS: ENOXAPARIN 40 MG/0.4 ML SYRINGE (J1650) SC SCH (08:34)
[2019-08-19] MEDS: PANTOPRAZOLE 40MG INJ (PROTONIX) (C9113) IV SCH (08:34)
== END 2019-08-19 11:56 | disposition home or self-care (01) | DRG 420 ==
LOC: M ED 07:51 → M ED INP 10:52 → M ICU 12:41 → M MS5PR 08-18 09:35
PROVIDERS: ADMIT Internal Medicine; ATTEND Internal Medicine
DX: E11.10 Type 2 diabetes mellitus with ketoacidosis without coma (principal); N17.9 Acute kidney failure, unspecified; K86.2 Cyst of pancreas; R65.10 Systemic inflammatory response syndrome (SIRS) of non-infectious origin without acute organ dysfunction; K86.0 Alcohol-induced chronic pancreatitis; I10 Essential (primary) hypertension; E78.5 Hyperlipidemia, unspecified; K21.9 Gastro-esophageal reflux disease without esophagitis; F10.10 Alcohol abuse, uncomplicated; E11.65 Type 2 diabetes mellitus with hyperglycemia; K59.00 Constipation, unspecified; E86.0 Dehydration; N40.0 Benign prostatic hyperplasia without lower urinary tract symptoms; Z79.82 Long term (current) use of aspirin; Z79.4 Long term (current) use of insulin; Z79.899 Other long term (current) drug therapy

== ENCOUNTER → 2019-12-21 | Outpatient (CLI) | payer OTHER ==
[~2019-12-21] MED LIST changes: +ATOR1TAB21 PO; +ATOR80TA59 PO; +MED REC COMMENT; +METO1TAB33 PO
== END ==
LOC: M LABSMTC 10:12
PROVIDERS: ATTEND Family Medicine
DX: Z11.59 Encounter for screening for other viral diseases (principal); Z20.828 Contact with and (suspected) exposure to other viral communicable diseases

== ENCOUNTER 2020-01-04 10:55 | Inpatient (IN) | payer OTHER ==
[~2020-01-04] VITALS: Ht 175.3 cm; Wt 64.3 kg
[~2020-01-04 10:55] MED LIST changes: +ASPIRIN 81 MG CHEW TABLET PO SCH; +ENOXAPARIN 40MG/0.4ML SYRINGE (J1650 PER 10MG) SC SCH
[2020-01-04] MEDS ORDERED: METO37.5 PO (11:05)
[2020-01-04 11:44] LABS: BASO % 0.2 % (0.0-1.0); HEMATOCRIT 55.5 % (42.0-52.0); LYMPH # 1.1 10^3/uL (1.5-5.0); LYMPH % 6.9 % (24.0-44.0); MEAN CORPUSCULAR HEMOGLOBIN 27.1 pg (27.0-33.0); MEAN CORPUSCULAR HGB CONC 31.7 g/dl (32.0-36.5); MEAN CORPUSCULAR VOLUME 85.5 fl (80.0-96.0); MONO # 0.6 10^3/uL (0.0-0.8); MONO % 3.6 % (0.0-5.0); NEUTROPHILS # 13.8 10^3/uL (1.5-8.5); NEUTROPHILS % 88.8 % (36.0-66.0); PLATELET COUNT, AUTOMATED 386 10^3/uL (150-450); RED BLOOD COUNT 6.49 10^6/uL (4.30-6.10); WHITE BLOOD COUNT 15.5 10^3/uL (4.0-10.0)
[2020-01-04 11:47] LABS: HEMOGLOBIN 17.6 g/dl (13.5-17.5)
[2020-01-04] MEDS ORDERED: PANTOPRAZOLE 40MG VIAL (C9113 PER 1) IV ONE (12:00)
[2020-01-04] MEDS ORDERED: PIPERACILLIN/TAZOBACTAM SOD 4.5 GM in D5W MINI-BAG PLUS 50 ML IV ONE (12:00)
[2020-01-04] MEDS ORDERED: ONDANSETRON 4MG/2ML VIAL IV ONE (12:00)
[2020-01-04] MEDS ORDERED: NS 2,180 ML in IV 1 EA IV ONE (12:00)
[2020-01-04 12:10] LABS: VENOUS BASE EXCESS -15.8 (-2.0-2.0); VENOUS HCO3 9.1 MEQ/L (23.0-27.0); VENOUS O2 SATURATION 70.2 % (60.0-80.0); VENOUS PARTIAL PRESSURE CO2 21.4 mmHg (38.0-50.0); VENOUS PARTIAL PRESSURE O2 43.4 mmHg (30.0-50.0); VENOUS PH 7.245 UNITS (7.330-7.430); VENOUS STANDARD HCO3 12.4 MEQ/L; VENOUS TOTAL CO2 9.7 MEQ/L (24.0-28.0)
[2020-01-04 12:44] LABS: OSMOLALITY SERUM 335 MOSM/KG (275-295)
[2020-01-04 12:48] LABS: HEMOGLOBIN A1c 11.9 %
[2020-01-04 12:49] LABS: ACETONE/KETONE > 46.00 MG/DL (<2.81); ALBUMIN 5.3 GM/DL (3.2-5.2); ALT/SGPT 49 U/L (12-78); BILIRUBIN,DIRECT 0.2 MG/DL (0.0-0.2); BILIRUBIN,TOTAL 0.7 MG/DL (0.2-1.0); BLOOD UREA NITROGEN 30 MG/DL (7-18); CARBON DIOXIDE LEVEL 11 MEQ/L (21-32); CHLORIDE LEVEL 79 MEQ/L (98-107); CK-MB VALUE MASS 3.8 NG/ML (<3.6); CPK CREATINE PHOSPHOKINASE 136 U/L (39-308); CREATININE FOR GFR 2.32 MG/DL (0.70-1.30); GLOMERULAR FILTRATION RATE 32.7 (>60); GLUCOSE, FASTING 466 MG/DL (70-100); LIPASE 174 U/L (73-393); MAGNESIUM LEVEL 2.5 MG/DL (1.8-2.4); MB/CK RELATIVE INDEX 2.79 (< OR =4); POTASSIUM SERUM 3.9 MEQ/L (3.5-5.1); SODIUM LEVEL 125 MEQ/L (136-145); TOTAL PROTEIN 9.7 GM/DL (6.4-8.2); TROPONIN I < 0.02 NG/ML (< 0.10)
[2020-01-04 13:00] LABS: ETHYL ALCOHOL (ETHANOL) < 0.003 % (0.000-0.010)
[2020-01-04] MEDS ORDERED: INSULIN IV RATE CHANGE DOCUMENTATION ML/HR XX SCH (13:00)
[2020-01-04] MEDS ORDERED: METO100T5 PO (13:23)
[2020-01-04] MEDS: INSULIN HUMAN REGULAR 100 UNITS in NS 99 ML IV SCH ×2 (13:29→14:36)
[2020-01-04] MEDS ORDERED: INSULIN HUMAN REGULAR 100 UNITS in NS 99 ML IV SCH (13:29)
[2020-01-04] MEDS ORDERED: NS 1,000 ML IV SCH (13:50)
[2020-01-04] MEDS ORDERED: KCL 20MEQ IN 100ML SWI (KRUN) 20 MEQ in IV 1 EA IV ONE ×2 (14:00)
--- NOTE | 2020-01-04 14:16 | HPEPDOC ---
General Date of Admission Date of Service: Jan 04, 2020 Chief Complaint The patient is a 44-year-old male admitted with a reason for visit of Blood Sugar Problems. Source: Patient Exam Limitations: No limitations Timing/Duration: Other (2 days) Severity: Other (none) Associated Symptoms: Other (, fatigue, tired, nausea, vomiting) History of Present Illness This is a 44 years old white male who is noncompliant to his meds. History of alcohol abuse, frequent admission to this hospital with DKA presented again complaining of nausea, vomiting last 2 days with increased blood sugar more than 500. Patient also complaining of tired, fatigue, and thirsty. Denies any chest pain, shortness of breath, diarrhea, etc. Home Medications Scheduled Aspirin (Aspirin) 81 Mg Chw, 81 MG PO QAM, (Reported) Atorvastatin Calcium (Atorvastatin Calcium) 80 Mg Tablet, 80 MG PO DAILY, (Reported) Folic Acid (Folic Acid) 1 Mg Tablet, 1 MG PO QAM, (Reported) Gabapentin (Gabapentin) 300 Mg Capsule, 600 MG PO QHS, (Reported) Insulin Glargine,Hum.rec.anlog (Lantus Solostar) 100 Unit/Ml Inj, 30 UNITS SC BID, (Reported) Insulin Human Lispro (Novolog) 100 U/Ml Inj, 1 DOSE SC AC, (Reported) PER SLIDING SCALE Metoprolol Tartrate (Metoprolol Tartrate) 100 Mg Tablet, 100 MG PO BID, (Reported) Multivitamins (Child Chew Vitamin) 1 Tab Chew, 2 TAB PO QAM, (Reported) Pantoprazole Sodium (Pantoprazole Sodium) 40 Mg Tab, 40 MG PO QAM, (Reported) Allergies Coded Allergies: No Known Allergies (Unverified , 03/03/19) Past Medical History Medical History Diabetes mellitus type 1. Recurrent pancreatitis, alcohol addiction, noncompliance with meds Surgical History Vasectomy Social History * Smoker: current smoker Alcohol: heavy Drugs: denies A-FIB/CHADSVASC A-FIB History Current/History of A-Fib/PAF?: No Review of Systems Constitutional: Reports: Weakness, Fatigue Eyes: Denies: Pain, Vision change, Conjunctivae inflammation, Eyelid inflammation, Redness, Other ENT: Denies: Head Aches, Ear Pain, Dysphagia, Sinus Congestion, Post Nasal Drip, Sore Throat, Epistaxis, Other Symptoms Skin: Denies: Rash, Lesions, Jaundice, Bruising, Itching, Dry, Breakdown, Nail Changes, Other Pulmonary: Denies: Dyspnea, Cough, Pleuritic Chest Pain, Other Symptoms Cardiovascular: Denies: Chest Pain, Palpitations, Orthopnea, Paroxysmal Noc. D yspnea, Edema, Lt Headedness, Other Symptoms Gastrointestinal: Reports: Nausea, Vomiting Genitourinary: Denies: Dysuria, Frequency, Incontinence, Hematuria, Retention, Other Symptoms Hematologic: Denies: Bruising, Bleeding Excessively, Petecchia, Purpura, Enlarged Lymph Nodes, Other Hematologic Endocrine: Denies: Polydipsia, Polyphagia, Polyuria, Heat Intolerance, Cold Intolerance, Other Endocrine Sx Musculoskeletal: Denies: Neck Pain, Back Pain, Shoulder Pain, Arm Pain, Hand Pain, Leg Pain, Foot Pain, Joint Pain, Muscle Pain, Spasms, Other Symptoms Neurological: Denies: Weakness, Numbness, Incoordination, Change in speech, Confusion, Seizures, Other Symptoms Psych: Denies: Mood Normal, Anxiety, Depression, Memory Issues, Thoughts of Se lf Harm, Anger, Thoughts of Harming Other, Other Psych Physical Examination General Exam: Positive: Alert, Cooperative Eye Exam: Positive: PERRLA, Conjunctiva & lids normal ENT Exam: Positive: Atraumatic, Mucous membr. moist/pink Neck Exam: Positive: Supple, JVD Chest Exam: Positive: Clear to auscultation, Normal air movement Heart Exam: Positive: Rate Normal, Normal S1, Normal S2 Abdomen Exam: Positive: Normal bowel sounds, Soft Extremity Exam: Positive: Normal pulses Skin Exam: Positive: Nl turgor and temperature Neuro Exam: Positive: Strength at 5/5 X4 ext Psych Exam: Positive: Mental status NL, Oriented x 3 Vital Signs Vital Signs Date Time Temp Pulse Resp B/P (MAP) Pulse Ox O2 Delivery O2 Flow Rate FiO2 01/04/20 13:55 127 100 01/04/20 13:45 156/98 (117) 01/04/20 10:55 98.3 30 Room Air Laboratory Data Labs 24H Laboratory Tests 2 01/04/20 11:20: Bedside Glucose (Misc Panel) 494H 01/04/20 11:33: Immature Granulocyte % (Auto) 0.5, Neutrophils (%) (Auto) 88.8H, Lymphocytes (%) (Auto) 6.9L, Monocytes (%) (Auto) 3.6, Eosinophils (%) (Auto) 0.0, Basophils (%) (Auto) 0.2, Neutrophils # (Auto) 13.8H, Lymphocytes # (Auto) 1.1L, Monocytes # (Auto) 0.6, Eosinophils # (Auto) 0.0, Basophils # (Auto) 0.0, Nucleated Red Blood Cells % (auto) 0.0, Blood Gas Bicarbonate Standard 12.4, Venous Blood pH 7.245L, Venous Blood Partial Pressure CO2 21.4L, Venous Blood Partial Pressure O2 43.4, Venous Blood Total Carbon Dioxide 9.7L, Venous Blood HCO3 9.1L, Venous Blood Oxygen Saturation 70.2, Venous Blood Base Excess -15.8L, Anion Gap 35H, Glomerular Filtration Rate 32.7L, Estimated Mean Plasma Glucose 295H, Hemoglobin A1c 11.9, Osmolality 335H, Lactic Acid Level 2.6*H, Calcium Level 11.0H, Ma gnesium Level 2.5H, Total Bilirubin 0.7, Direct Bilirubin 0.2, Aspartate Amino Transf (AST/SGOT) 21, Alanine Aminotransferase (ALT/SGPT) 49, Alkaline Phosphatase 118H, Total Creatine Kinase 136, Creatine Kinase MB 3.8H, Creatine Kinase MB Relative Index 2.79, Troponin I < 0.02, Total Protein 9.7H, Albumin 5.3H, Albumin/Globulin Ratio 1.20, Lipase 174, Ethyl Alcohol Level < 0.003, B-Hydroxybutyrate > 46.00H 01/04/20 13:10: Bedside Glucose (Misc Panel) 425H 01/04/20 13:30: Urine Color YELLOW, Urine Appearance CLEAR, Urine pH 5.0, Urine Specific [place] 1.017, Urine Protein 2+H, Urine Glucose (UA) 3+H, Urine Ketones 2+H, Urine Blood 2+H, Urine Nitrite NEGATIVE, Urine Bilirubin NEGATIVE, Urine Urobilinogen 0.2, Urine Leukocyte Esterase NEGATIVE, Urine WBC (Auto) 0, Urine RBC (Auto) 0, Urine Hyaline Casts (Auto) 19, Urine Bacteria (Auto) NEGATIVE, Urine Squamous Epithelial Cells 0, Urine Mucus (Auto) SMALL, Urine Sperm (Auto) CBC/BMP Laboratory Tests 01/04/20 11:33 Microbiology Microbiology 01/04/20 Blood Culture, Received Pending 01/04/20 Blood Culture, Received Pending Problems (1) Diabetic ketoacidosis Status: Acute Problem Text: Admit patient to ICU with telemetry monitoring for further DKA management Patient is acidotic on VBG and his bicarbonate level is 9.1 Patient's hyponatremia with 125 secondary to pseudohyponatremia. His BUN is 30, creatinine 2.32, anion gap is 35 Patient will be started on normal saline 850 mL per hour , Bicarbonate supplement IV has been ordered Insulin drip will be continued as a started from ED , Will adjust the insulin drip according to sliding scale Start long-acting detemir insulin 30 units every 12 hours Zofran when necessary for nausea, vomiting Nothing by mouth Activity as tolerated Lovenox for DVT prophylaxis continue home meds (2) RAYMOND (acute kidney injury) Status: Acute Problem Text: Secondary to dehydration and DKA IV fluid normal saline 150 mL per hour Monitor urine output BUN/creatinine a.m. (3) Alcohol abuse Status: Chronic Problem Text: History of chronic alcohol abuse Continue home meds Plan / VTE VTE Prophylaxis Ordered?: Yes PADMINI LOPEZ MD Jan 04, 2020 14:16
[2020-01-04] MEDS ORDERED: ONDANSETRON 4MG/2ML VIAL IV PRN (14:30)
--- NOTE | 2020-01-04 14:33 | REP ---
PORTABLE CHEST X-RAY: Single view. HISTORY: Diabetic ketoacidosis. COMPARISON STUDY: March 26, 2019. FINDINGS: Monitoring electrodes are seen. The lungs are well inflated and clear. Pleural angles are sharp. Cardiomediastinal silhouette is unremarkable. IMPRESSION: Negative portable chest x-ray. Electronically Signed by Timi Alvarado MD 01/04/2020 03:08 P
[2020-01-04] MEDS ORDERED: HumuLIN R (REGULAR) INSULIN (NovoLIN R) **100U/ML** PER UNIT As Ordered ONE (14:43)
[2020-01-04 15:00] VITALS: BP 145/95
[2020-01-04] MEDS ORDERED: SODIUM BICARBONATE 8.4% INJ 50 ML SYRINGE IV SCH (15:00)
[2020-01-04] MEDS: INSULIN IV RATE CHANGE DOCUMENTATION ML/HR XX SCH ×7 (15:28→23:47)
[2020-01-04] MEDS ORDERED: KCL 10MEQ IN STERILE WATER 100ML As Ordered ONE (16:09)
[2020-01-04] MEDS: KCL 10MEQ/100ML SWI (KRUN) X 2 DOSES (20MEQ TOTAL) IV SCH ×4 (16:12→17:34)
[2020-01-04] MEDS: LEVEMIR (INSULIN DETEMIR) 1 UNITS/0.01ML SC SCH (16:15)
[2020-01-04] MEDS ORDERED: SODIUM BICARBONATE 8.4% INJ 50 ML SYRINGE ONE (16:26)
[2020-01-04] MEDS: FOLIC ACID 1 MG TAB PO SCH (16:31)
[2020-01-04] MEDS: MULTIVITAMINS CHILDREN'S CHEWABLE TABLET PO SCH (16:32)
[2020-01-04] MEDS: ATORVASTATIN 20 MG TAB PO SCH (16:32)
--- NOTE | 2020-01-04 16:44 | ECGEPIP ---
[facility] - ED Test Date: 2020-01-04 Pat Name: FALGUNI ALSTON Department: Room: - Gender: Male Scout Sniper: keanu carroll : 1975 Requested By: FALGUNI Arce Order Number: [id number] Reading MD: Nani Horton Measurements Intervals [place] Rate: 123 P: 78 [place]: 158 QRS: 80 QRSD: 93 T: 63 QT: 302 QTc: 434 Interpretive Statements SINUS TACHYCARDIA MODERATE ST DEPRESSION DELAYED R PROGRESSION INCREASED RATE 08/17/19 Electronically Signed on 01-04-2020 16:44:31 EDT by Nani Horton
[2020-01-04 17:13] LABS: BLOOD UREA NITROGEN 31 MG/DL (7-18); CALCIUM LEVEL 8.9 MG/DL (8.5-10.1); CARBON DIOXIDE LEVEL 21 MEQ/L (21-32); CHLORIDE LEVEL 97 MEQ/L (98-107); CREATININE FOR GFR 1.67 MG/DL (0.70-1.30); GLOMERULAR FILTRATION RATE 47.8 (>60); GLUCOSE, FASTING 134 MG/DL (70-100); POTASSIUM SERUM 3.1 MEQ/L (3.5-5.1); SODIUM LEVEL 135 MEQ/L (136-145); TROPONIN I < 0.02 NG/ML (< 0.10)
[2020-01-04] MEDS ORDERED: KCL 20MEQ IN D5/0.45NS 1000ML 1,000 ML IV SCH (17:15)
[2020-01-04] MEDS ORDERED: D5W/0.45% SODIUM CHLORIDE 1,000 ML IV SCH (17:15)
[2020-01-04 20:00] VITALS: BP 134/84
[2020-01-04 20:19] LABS: BLOOD UREA NITROGEN 29 MG/DL (7-18); CALCIUM LEVEL 9.3 MG/DL (8.5-10.1); CARBON DIOXIDE LEVEL 24 MEQ/L (21-32); CHLORIDE LEVEL 99 MEQ/L (98-107); GLOMERULAR FILTRATION RATE 50.2 (>60); GLUCOSE, FASTING 127 MG/DL (70-100); POTASSIUM SERUM 3.7 MEQ/L (3.5-5.1); SODIUM LEVEL 134 MEQ/L (136-145); TROPONIN I < 0.02 NG/ML (< 0.10)
[2020-01-04 21:00] VITALS: BP 130/85
[2020-01-04] MEDS ORDERED: HumaLOG INSULIN (NovoLOG) PER UNIT SC SCH (21:00)
[2020-01-04] MEDS ORDERED: GABAPENTIN 300 MG CAP PO SCH (21:00)
[2020-01-04] MEDS ORDERED: LEVEMIR (INSULIN DETEMIR) 1 UNITS/0.01ML SC SCH (21:00)
[2020-01-04] MEDS: METOPROLOL TARTRATE 100 MG TAB PO SCH (21:15)
[2020-01-04 22:00] VITALS: BP 133/89
[2020-01-04] MEDS ORDERED: LEVEMIR (INSULIN DETEMIR) 1 UNITS/0.01ML SC ONE (22:00)
[2020-01-04 22:22] LABS: CALCIUM LEVEL 9.1 MG/DL (8.5-10.1); CREATININE FOR GFR 1.59 MG/DL (0.70-1.30); GLOMERULAR FILTRATION RATE 50.6 (>60); PHOSPHORUS LEVEL 1.5 MG/DL (2.5-4.9); POTASSIUM SERUM 3.5 MEQ/L (3.5-5.1)
[2020-01-05] VITALS: BP 116/77
[2020-01-05] MEDS ORDERED: GLUCAGON INJ 1MG VIAL SC PRN (00:45)
[2020-01-05] MEDS ORDERED: DEXTROSE 50% 50 ML SYRINGE IV PRN (00:45)
[2020-01-05] MEDS ORDERED: GLUCOSE 4GM CHEW TABLET PO PRN (00:45)
[2020-01-05 02:01] LABS: CALCIUM LEVEL 8.7 MG/DL (8.5-10.1); CREATININE FOR GFR 1.4 MG/DL (0.70-1.30); GLOMERULAR FILTRATION RATE 58.6 (>60); PHOSPHORUS LEVEL 2.1 MG/DL (2.5-4.9); POTASSIUM SERUM 3.4 MEQ/L (3.5-5.1)
[2020-01-05 04:00] VITALS: BP 103/67
[2020-01-05 05:04] LABS: HEMATOCRIT 38.1 % (42.0-52.0); MEAN CORPUSCULAR HEMOGLOBIN 27.2 pg (27.0-33.0); MEAN CORPUSCULAR HGB CONC 33.1 g/dl (32.0-36.5); MEAN CORPUSCULAR VOLUME 82.1 fl (80.0-96.0); RED BLOOD COUNT 4.64 10^6/uL (4.30-6.10); WHITE BLOOD COUNT 8.5 10^3/uL (4.0-10.0)
[2020-01-05 05:23] LABS: HEMOGLOBIN 12.6 g/dl (13.5-17.5); PLATELET COUNT, AUTOMATED 190 10^3/uL (150-450)
[2020-01-05 05:28] LABS: OSMOLALITY SERUM 285 MOSM/KG (275-295)
[2020-01-05 05:49] LABS: ACETONE/KETONE 0.89 MG/DL (<2.81); BLOOD UREA NITROGEN 23 MG/DL (7-18); CARBON DIOXIDE LEVEL 27 MEQ/L (21-32); CHLORIDE LEVEL 98 MEQ/L (98-107); CREATININE FOR GFR 1.23 MG/DL (0.70-1.30); GLOMERULAR FILTRATION RATE > 60.0 (>60); GLUCOSE, FASTING 55 MG/DL (70-100); MAGNESIUM LEVEL 1.8 MG/DL (1.8-2.4); POTASSIUM SERUM 3.3 MEQ/L (3.5-5.1); SODIUM LEVEL 133 MEQ/L (136-145)
[2020-01-05] MEDS ORDERED: HumaLOG INSULIN (NovoLOG) PER UNIT SC SCH (07:30)
[2020-01-05 08:00] VITALS: BP 150/95
[2020-01-05] MEDS: LEVEMIR (INSULIN DETEMIR) 1 UNITS/0.01ML SC SCH (08:24)
[2020-01-05] MEDS: MULTIVITAMINS CHILDREN'S CHEWABLE TABLET PO SCH (08:24)
[2020-01-05] MEDS: FOLIC ACID 1 MG TAB PO SCH (08:24)
[2020-01-05 08:25] VITALS: BP 150/95
[2020-01-05] MEDS: ATORVASTATIN 20 MG TAB PO SCH (08:25)
[2020-01-05] MEDS: METOPROLOL TARTRATE 100 MG TAB PO SCH (08:25)
[2020-01-05] MEDS ORDERED: PANTOPRAZOLE 40MG VIAL (C9113 PER 1) IV SCH (09:00)
[2020-01-05] MEDS ORDERED: POTASSIUM CHLORIDE 10 MEQ SR TABLET PO ONE (09:00)
--- NOTE | 2020-01-05 11:03 | DS.PDOC ---
Discharge Summary General Date of Admission Jan 04, 2020 at 15:00 Date of Discharge 01/05/20 Discharge Summary PROCEDURES PERFORMED DURING STAY: None. ADMITTING DIAGNOSES: 1. Diabetic ketoacidosis. DISCHARGE DIAGNOSES: 1. Diabetic ketoacidosis., History of alcohol abuse, history of noncompliance COMPLICATIONS/CHIEF COMPLAINT: Diabetic Ketoacidosis. HISTORY OF PRESENT ILLNESS: This is a 44 years old white male who is noncompliant to his meds. History of alcohol abuse, frequent admission to this hospital with DKA presented again complaining of nausea, vomiting last 2 days with increased blood sugar more than 500. Patient also complaining of tired, fatigue, and thirsty. Denies any chest pain, shortness of breath, diarrhea, etc. . HOSPITAL COURSE: Patient was admitted with diabetic ketoacidosis. He was admitted to ICU for close management. Patient was started on IV fluid normal saline and 150 mL per hour. He did get 2 L of fluid in the ED and also was started on insulin drip initially. His anion gap was more than 30, but with IV insulin and IV fluids. He progressively closed his anion gap and electrolytes were also normalized after he was given bicarbonate injections as well as treated his diabetic ketoacidosis Patient's today's completely asymptomatic. His electrolytes are within normal limits. His anion gap has closed. Potassium is slightly low at 3.3, but he will take by mouth KCl 40 mEq 1 and he'll be discharged home on all his home medications. Extensive counseling regarding compliance with his meds was done and all the complications including HI, CVA, stroke and were explained tohim.. DISCHARGE MEDICATIONS: Please see below. ALLERGIES: Please see below. PHYSICAL EXAMINATION ON DISCHARGE: VITAL SIGNS: Please see below. GENERAL: Within normal limits HEENT: Krista extraocular muscles intact NECK: Supple CARDIOVASCULAR EXAMINATION: S1, S2, regular RESPIRATORY EXAMINATION: Clear to A&P ABDOMINAL EXAMINATION: Benign EXTREMITIES: No clubbing, cyanosis, edema SKIN: Normal NEUROLOGICAL EXAMINATION: . No focal motor sensory deficit PSYCHIATRIC EXAMINATION: Normal LABORATORY DATA: Please see below. IMAGING: Not applicable PROGNOSIS: Good ACTIVITY: As tolerated. DIET: Consistent carbohydrate diet DISCHARGE PLAN: Follow with PCP in one week DISPOSITION: 01 Home, Self-Care. DISCHARGE INSTRUCTIONS: 1. As per discharge instructions. ITEMS TO FOLLOWUP ON ON OUTPATIENT: 1. Follow with PCP in one week. DISCHARGE CONDITION: Stable. TIME SPENT ON DISCHARGE: 36] minutes. Vital Signs/I&Os Vital Signs Date Time Temp Pulse Resp B/P (MAP) Pulse Ox O2 Delivery O2 Flow Rate FiO2 01/05/20 08:25 100 150/95 01/05/20 08:00 97.8 18 100 Room Air I&O- Last 24 Hours up to 6 AM 01/05/20 06:00 Intake Total 4120 ml Output Total 1050 ml Balance 3070 ml Laboratory Data Labs 24H Laboratory Tests 2 01/04/20 11:20: Bedside Glucose (Misc Panel) 494H 01/04/20 11:33: Immature Granulocyte % (Auto) 0.5, Neutrophils (%) (Auto) 88.8H, Lymphocytes (%) (Auto) 6.9L, Monocytes (%) (Auto) 3.6, Eosinophils (%) (Auto) 0.0, Basophils (%) (Auto) 0.2, Neutrophils # (Auto) 13.8H, Lymphocytes # (Auto) 1.1L, Monocytes # (Auto) 0.6, Eosinophils # (Auto) 0.0, Basophils # (Auto) 0.0, Nucleated Red Blood Cells % (auto) 0.0, Blood Gas Bicarbonate Standard 12.4, Venous Blood pH 7.245L, Venous Blood Partial Pressure CO2 21.4L, Venous Blood Partial Pressure O2 43.4, Venous Blood Total Carbon Dioxide 9.7L, Venous Blood HCO3 9.1L, Venous Blood Oxygen Saturation 70.2, Venous Blood Base Excess -15.8L, Anion Gap 35H, Glomerular Filtration Rate 32.7L, Estimated Mean Plasma Glucose 295H, Hemoglobin A1c 11.9, Osmolality 335H, Lactic Acid Level 2.6*H, Calcium Level 11.0H, Magnesium Level 2.5H, Total Bilirubin 0.7, Direct Bilirubin 0.2, Aspartate Amino Transf (AST/SGOT) 21, Alanine Aminotransferase (ALT/SGPT) 49, Alkaline Phosphatase 118H, Total Creatine Kinase 136, Creatine Kinase MB 3.8H, Creatine Kinase MB Relative Index 2.79, Troponin I < 0.02, Total Protein 9.7H, Albumin 5.3H, Albumin/Globulin Ratio 1.20, Lipase 174, Ethyl Alcohol Level < 0.003, B- Hydroxybutyrate > 46.00H 01/04/20 13:10: Bedside Glucose (Misc Panel) 425H 01/04/20 13:30: Urine Color YELLOW, Urine Appearance CLEAR, Urine pH 5.0, Urine Specific [place] 1.017, Urine Protein 2+H, Urine Glucose (UA) 3+H, Urine Ketones 2+H, Urine Blood 2+H, Urine Nitrite NEGATIVE, Urine Bilirubin NEGATIVE, Urine Urobilinogen 0.2, Urine Leukocyte Esterase NEGATIVE, Urine WBC (Auto) 0, Urine RBC (Auto) 0, Urine Hyaline Casts (Auto) 19, Urine Bacteria (Auto) NEGATIVE, Urine Squamous Epithelial Cells 0, Urine Mucus (Auto) SMALL, Urine Sperm (Auto) 01/04/20 14:10: Bedside Glucose (Misc Panel) 334H 01/04/20 14:31: Troponin I < 0.02 01/04/20 15:06: Bedside Glucose (Misc Panel) 232H 01/04/20 16:01: Bedside Glucose (Misc Panel) 168H 01/04/20 16:33: Anion Gap 17H, Glomerular Filtration Rate 47.8L, Lactic Acid Followup at 4 Hours 1.5, Calcium Level 8.9#, Troponin I < 0.02 01/04/20 17:07: Bedside Glucose (Misc Panel) 127H 01/04/20 18:07: Bedside Glucose (Misc Panel) 119H 01/04/20 19:17: Bedside Glucose (Misc Panel) 137H 01/04/20 19:44: Anion Gap 11, Glomerular Filtration Rate 50.2L, Calcium Level 9.3, Troponin I < 0.02 01/04/20 20:24: Bedside Glucose (Misc Panel) 129H 01/04/20 21:20: Bedside Glucose (Misc Panel) 97 01/04/20 21:40: Anion Gap 7L, Glomerular Filtration Rate 50.6L, Calcium Level 9.1, Phosphorus Level 1.5L 01/04/20 23:43: Bedside Glucose (Misc Panel) 131H 01/05/20 01:01: Anion Gap 6L, Glomerular Filtration Rate 58.6L, Calcium Level 8.7, Phosphorus Level 2.1#L 01/05/20 03:00: Bedside Glucose (Misc Panel) 45L 01/05/20 03:26: Bedside Glucose (Misc Panel) 86 01/05/20 04:43: Nucleated Red Blood Cells % (auto) 0.0, Anion Gap 8, Glomerular Filtration Rate > 60.0, Osmolality 285, Calcium Level 9.0, Phosphorus Level 3.0#, Magnesium Level 1.8, B-Hydroxybutyrate 0.89 01/05/20 05:54: Bedside Glucose (Misc Panel) 54L 01/05/20 07:19: Bedside Glucose (Misc Panel) 123H CBC/BMP Laboratory Tests 01/04/20 11:33 01/04/20 16:33 01/04/20 19:44 01/04/20 21:40 01/05/20 01:01 01/05/20 04:43 FSBS Laboratory Tests Test 01/04/20 11:20 01/04/20 13:10 01/04/20 14:10 01/04/20 15:06 Range/Units Bedside Glucose (Misc Panel) 494 425 334 232 70-105 MG/DL Test 01/04/20 16:01 01/04/20 17:07 01/04/20 18:07 01/04/20 19:17 Range/Units Bedside Glucose (Misc Panel) 168 127 119 137 70-105 MG/DL Test 01/04/20 20:24 01/04/20 21:20 01/04/20 23:43 01/05/20 03:00 Range/Units Bedside Glucose (Misc Panel) 129 97 131 45 70-105 MG/DL Test 01/05/20 03:26 01/05/20 05:54 01/05/20 07:19 Range/Units Bedside Glucose (Misc Panel) 86 54 123 70-105 MG/DL Microbiology Microbiology 01/04/20 Blood Culture, Received Pending 01/04/20 Blood Culture, Received Pending Discharge Medications Scheduled Aspirin (Aspirin) 81 Mg Chw, 81 MG PO QAM, (Reported) Atorvastatin Calcium (Atorvastatin Calcium) 80 Mg Tablet, 80 MG PO DAILY, (Reported) Folic Acid (Folic Acid) 1 Mg Tablet, 1 MG PO QAM, (Reported) Gabapentin (Gabapentin) 300 Mg Capsule, 600 MG PO QHS, (Reported) Insulin Glargine,Hum.rec.anlog (Lantus Solostar) 100 Unit/Ml Inj, 30 UNITS SC BID, (Reported) Insulin Human Lispro (Novolog) 100 U/Ml Inj, 1 DOSE SC AC, (Reported) PER SLIDING SCALE Metoprolol Tartrate (Metoprolol Tartrate) 100 Mg Tablet, 100 MG PO BID, (Reported) Multivitamins (Child Chew Vitamin) 1 Tab Chew, 2 TAB PO QAM, (Reported) Pantoprazole Sodium (Pantoprazole Sodium) 40 Mg Tab, 40 MG PO QAM, (Reported) Allergies Coded Allergies: No Known Allergies (Unverified , 03/03/19) PADMINI LOPEZ MD Jan 05, 2020 11:03
== END 2020-01-05 09:40 | disposition home or self-care (01) | DRG 420 ==
LOC: M ED 10:55 → M ED INP 13:50 → UNDOADMIN 13:50 → ENRESERV 14:29 → M RR INP 15:00 → M ED INP 16:12
PROVIDERS: ADMIT Internal Medicine; ATTEND Internal Medicine
DX: E10.10 Type 1 diabetes mellitus with ketoacidosis without coma (principal); N17.9 Acute kidney failure, unspecified; F10.20 Alcohol dependence, uncomplicated; F17.200 Nicotine dependence, unspecified, uncomplicated; Z91.14 Patient's other noncompliance with medication regimen; Z79.82 Long term (current) use of aspirin; Z79.4 Long term (current) use of insulin; Z79.899 Other long term (current) drug therapy

== ENCOUNTER 2020-10-05 12:04 | Inpatient (IN) | payer OTHER ==
[~2020-10-05] VITALS: Ht 175.3 cm; Wt 69.6 kg
[~2020-10-05 12:04] MED LIST changes: +ASPI81TA26 PO; -ASPIRIN 81 MG CHEW TABLET PO SCH; -ENOXAPARIN 40MG/0.4ML SYRINGE (J1650 PER 10MG) SC SCH; +GABA-282 PO; -GABA-843 PO; +GABA600T4 PO; +INSU100I28 SC; -METF-791 PO; +METF-838 PO; +METO37.5 PO; +MULT-40 PO; +PANT40TA29 PO; -PANT40TA3 PO; +RAMI1CAP24 PO
[2020-10-05] MEDS ORDERED: RAMI1CAP24 PO (12:19)
[2020-10-05] MEDS ORDERED: ONDANSETRON 4MG/2ML VIAL IV ONE (13:15)
[2020-10-05] MEDS ORDERED: NS 1,000 ML IV ONE ×2 (13:15→17:00)
[2020-10-05] MEDS ORDERED: PANTOPRAZOLE 40MG VIAL (C9113 PER 1) IV ONE (13:45)
[2020-10-05 14:00] LABS: BASO % 0.1 % (0.0-1.0); HEMATOCRIT 40.4 % (42.0-52.0); HEMOGLOBIN 12.3 g/dl (13.5-17.5); LYMPH # 1.1 10^3/uL (1.5-5.0); MEAN CORPUSCULAR HEMOGLOBIN 22.3 pg (27.0-33.0); MEAN CORPUSCULAR HGB CONC 30.4 g/dl (32.0-36.5); MEAN CORPUSCULAR VOLUME 73.3 fl (80.0-96.0); MONO # 0.8 10^3/uL (0.0-0.8); NEUTROPHILS % 82.4 % (36.0-66.0); PLATELET COUNT, AUTOMATED 284 10^3/uL (150-450); RED BLOOD COUNT 5.51 10^6/uL (4.30-6.10); WHITE BLOOD COUNT 10.9 10^3/uL (4.0-10.0)
--- NOTE | 2020-10-05 14:08 | REP ---
INDICATION: dizziness. COMPARISON: Comparison chest x-ray January 04, 2020. TECHNIQUE: Two views.. FINDINGS: The lungs are well inflated and free of infiltrate. The pleural angles are sharp. The heart size is normal. Pulmonary vasculature is not increased. No significant bony abnormality is seen. IMPRESSION: Negative chest x-ray. <Electronically signed by Boyd Alvarado > 10/05/20 2522
[2020-10-05 14:11] LABS: INR 0.92; PARTIAL THROMBOPLASTIN TIME 23.1 SECONDS (24.2-38.5); PROTHROMBIN TIME 12.5 SECONDS (12.5-14.3)
--- OUTSIDE RECORDS SUMMARY | 2020-10-05 14:11 | CCD | Continuity of Care Document ---
Author Author Camilo FUENTES MD Organization Unknown Address [address] [place] [id number] Phone [phone] Care Team Providers Care Manager [employer] Name Role Phone Mark Velez DO AUTM [phone] Problems Description No Information Available Social History Type Date Description Comments Sex Unknown Allergies, Adverse Reactions, Alerts Description No Information Available Medications Description No Information Available Immunizations Description No Information Available Vital Signs Date Vital Result Comment 08/08/2020 8:44am Body Temperature 96.7 F Height 69 inches 5'9" Weight 160.00 lb BMI (Body Mass Index) 23.6 kg/m2 Results Description No Information Available Procedures Date Code Description Status 08/08/2020 15742 X-Ray Spine Thoracolumbar Ap & L ateral 2 Views Completed Medical Devices Description No Information Available Encounters Type Date Location Provider Dx Diagnosis Office Visit 08/08/2020 8:00a [place] Balta Fuentes MD S22.080A Wedge compression fracture of T11-T12 vertebra, init F17.210 Nicotine dependence, cigaret von, uncomplicated Assessments Date Code Description Provider 08/08/2020 S22.080A Wedge compression fr acture of T11-T12 vertebra, initial encounter for closed fracture Balta Fuentes MD 08/08/2020 F17.210 Nicotine dependence, cigarettes, uncomplicated Balta Fuentes MD Plan of Treatment 08/08/2020 - Balta Fuentes MD* S22.080A Wedge compression fracture of T11-T12 vertebra, initial encounter for closed fracture* New Labs:* Serum Protein Electrophoresis, Ordered: 08/08/20 * Urine Protein Electrophoresis, Ordered: 08/08/20 * Follow up:* with thoracic MRI results with [facility] in [place] per [facility] * F17.210 Nicotine dependence, cigarettes, uncomplicated Functional Status Description No Information Available Mental Status Description No Information Available Referrals Refer to Reason for Referral Status Appt Date Balta Fuentes MD DME RECEIVED WRITTEN AUTH FO Jonn MATOSTA LSO [phone]([id number]) TO ALICIA Moreira [facility], [place] [id number] [phone]
--- OUTSIDE RECORDS SUMMARY | 2020-10-05 14:11 | CCD | Continuity of Care Document ---
Author Author Camilo FUENTES MD Organization Unknown Address [address] [place] [address] Phone [phone] Care Team Providers Care Basin Cleaner Name Role Phone Mark Velez DO AUTM [phone] Problems Description No Information Available Social History [...] Available Procedures Date Code Description Status 08/08/2020 14040 X-Ray Spine Thoracolumbar Ap & L ateral 2 Views Completed Medical Devices Description No Information Available Encounters Type Date Location Provider Dx Diagnosis Office Visit 08/08/2020 8:00a [place] Balta Fuentes MD S22.080A Wedge compression fracture of T11-T12 vertebra, init F17.210 Nicotine dependence, cigaret von, uncomplicated Assessments Date Code Description Provider 08/17/2020 S22.080A Wedge compression fr acture of T11-T12 vertebra, initial encounter for closed fracture Balta Fuentes MD 08/08/2020 S22.080A Wedge compression fr acture of [...] Follow up:* with thoracic MRI results with [facility] in [place] per [facility] * F17.210 Nicotine dependence, cigarettes, uncomplicated Functional Status Description No Information Available Mental Status Description No Information Available Referrals Refer to Reason for Referral Status Appt Date Balta Fuentes MD DME RECEIVED WRITTEN AUTH FO R [place] LSO [phone]([id number]) TO ALICIA SCOTT Created [address] [place] [address], [address] [place] [address] [phone]
--- OUTSIDE RECORDS SUMMARY | 2020-10-05 14:12 | CCD | Summary of Care ---
Author Author [facility] Organization [facility] Address Unknown Phone Unavailable Care Team Providers Care Tax Auditor Name Role Phone Mark Velez DO PCP Reason for Referral * Consultation (Routine) Referred By Contact Referred To Contact Status Reason Specialty Diagnoses / Procedures Demetris Salter MD [address] [place] [address] Email: [email or web address] Marshall Bee MD [address] [address] Email: [email or web address] Open Specialty Services Gastroenterology Diagnoses Required Acute GI bleeding Reason for Visit * Auth/Cert Referred By Contact Referred To Contact Status Reason Specialty Diagnoses / Procedures Diagnoses Upper GI bleed Acute upper GI bleed Encounter Details Care Team Description Date Type Department Sajan Ramon, MBBS [address] [place] [address] [phone] Fer Winslow MD [address] [place] [address] [phone] Gustavo Duke MD [address] [place] [address] [phone] Demetris Salter MD [address] [place] [address] [phone] Acute GI bleeding (Primary Dx) 07/15/[address] CC - Encounter [address] 07/18/2020 [place] [address] Allergies No Known Allergiesdocumented as of this encounter (statuses as of 07/18/2020) Medications End Date Status Medication Sig Dispensed Refills Start Date Active metoprolol (LOPRESSOR) Take 0.5 30 tablet 5 100 MG tabletIndications: tablets by 2 Hypertension mouth 2 (two) times daily. Active Insulin Pen Needle 31G X Use as 100 each 5 0 6 MM MISCIndications: directed. Use 2 Type II or unspecified as directed. type diabetes mellitus mdd 4 without mention of complication, uncontrolled Active Lancets 30G Use as 100 each MISCIndications: Type II directed. mdd 2 or unspecified type 4 250.02 diabetes mellitus without mention of complication, uncontrolled Active insulin aspart (NOVOLOG Tidac: per 15 mL FLEXPEN) 100 UNIT/ML scale - mdd 2 injection 50units Active glucose blood (FREESTYLE UAD test 4 1 each 0 0 LITE) test times daily. 3 stripIndications: DM DX:250 (diabetes mellitus) Active insulin glargine (LANTUS) Inject 54 15 mL 100 UNIT/ML Units into 6 injectionIndications: the skin Diabetes mellitus type 2 nightly. Use in nonobese as directed at hs. mdd 30 units Active Ramipril 5 MG Oral Take 5 mg by 0 Capsule (ALTACE) mouth daily Active Thiamine HCl 100 MG Oral Take 100 mg 0 Tablet (B-1) by mouth daily Active Gabapentin 300 MG Oral Take 600 mg 0 Capsule (NEURONTIN) by mouth Three times daily Active Folic Acid 1 MG Oral Take 1 mg by 0 Tablet (FOLVITE) mouth daily Active Aspirin 81 MG Oral Tablet Take 81 mg by 0 Delayed Release mouth daily 07/17/2021 Active Pantoprazole Sodium 40 MG Take 1 tablet 30 tablet 0 Oral Tablet Delayed by mouth 0 Release (PROTONIX) daily Active Cyclobenzaprine HCl 10 MG Take 1 tablet 30 tablet 0 Oral Tablet (FLEXERIL) by mouth 0 Three times daily as needed for Muscle spasms Active Diclofenac Sodium 1 % Apply 2 g 2 g 0 07/08 Transdermal Gel topically 0 (VOLTAREN) daily 07/17/2021 Active Ferrous Sulfate 325 (65 Take 1 tablet 30 tablet 0 Fe) MG Oral Tablet by mouth 0 daily with breakfast 07/17/2021 Active Sennosides 8.6 MG Oral Take 1 tablet 30 tablet 0 1 Tablet (SENOKOT) by mouth 0 daily as needed for Constipation 07/15/2020 Discontinued (Medication Rec oncilation) clonidine (CATAPRES) 0.1 Take 1 tablet 60 tablet 5 MG tabletIndications: by mouth 2 2 Hypertension (two) times daily. 07/18/2020 Discontinued (Stop Taking at Discharge) pantoprazole (PROTONIX) TAKE ONE 30 tablet 3 40 MG tablet TABLET BY 2 MOUTH EVERY DAY documented as of this encounter (statuses as of 07/18/2020) Active Problems Problem Noted Date Colon polyps 07/17/2020 Type 2 diabetes mellitus, with long-term current use of insulin 07/17/2020 Acute GI bleeding 07/15/2020 Pancreatic mass 07/15/2020 Vasovagal syncope 07/15/2020 Acute blood loss anemia 07/15/2020 Alcohol-induced chronic pancreatitis 01/23/2016 Pancreatitis 12/11/2013 Acute alcoholic pancreatitis 12/07/2013 DKA (diabetic ketoacidoses) 12/07/2013 RAYMOND (acute kidney injury) 12/07/2013 HTN (hypertension) 03/15/2012 Ulcer - lesion 03/15/2012 Blurry vision 03/15/2012 Physical deconditioning 03/15/2012 Diabetes mellitus 03/15/2012 Alcohol abuse 03/15/2012 documented as of this encounter (statuses as of 07/18/2020) Immunizations Name Administration Dates Next Due Influenza Quad IM Pres 07/17/2020 Free (0.5 mL dose) documented as of this encounter Social History Date Tobacco Use Types Packs/Day Years Used Current Every Day Smoker Cigarettes 1 20 Drinks/Week oz/Week Comments Alcohol Use pt states he drinks for 2-3 days consecutively and then quits for about a month Yes Sex Assigned at Date Recorded Not on file Date Recorded COVID-19 Exposure Response 07/15/2020 7:29 PM EST In the last month, have you been in contact with No / Unsure someone who was confirmed or suspected to have Coronavirus / COVID-19? documented as of this encounter Last Filed Vital Signs Reading Time Taken Comments Vital Sign 117/77 07/18/2020 11:30 AM EST Blood Pressure 63 07/18/2020 11:30 AM EST Pulse 37.2 C (99 F) 07/18/2020 11:30 AM EST Temperature 18 07/18/2020 11:30 AM EST Respiratory Rate 98% 07/18/2020 11:30 AM EST Oxygen Saturation - - Inhaled Oxygen Concentration 77.9 kg (171 lb 12.8 oz) 07/15/2020 7:27 PM EST Weight 175.3 cm (5' 9") 07/15/2020 7:27 PM EST Height 25.37 07/15/2020 7:27 PM EST Body Mass Index documented in this encounter Progress Notes * Joon Kohler RN - 07/18/2020 12:22 PM EST Patient PIV removed. Patient discharged to home with belongings in hand, includi ng medications. Patient given discharge instructions and verbalized understandin g. * Joon Kohler RN - 07/18/2020 11:[address] Salter informed patient BGL 412, given early lunch and 16 units humalog per SS. * Joon Kohler RN - 07/18/2020 10:50 AM EST Spoke with Dr. Salter regarding patient missed dose of AM insulin, states to get early tray and cover accordingly. * Demetrice Hsu RN - 07/17/2020 10:40 PM EST Assumed care of pt from [phone], reviewed and agree with previous nurse assess ment. Will continue to monitor and update the chart as needed. * Mackenzie Hogue RN - 07/17/2020 7:40 PM EST Hop Strainer assuming care of patient from 1500 to 1930. Agree with assessment by ulises mclaughlin RN with any exceptions noted in the EMR. Pt to OR for colonoscopy and ret urned. Pt VS stable and requesting a diet. IV in R forearm d/aly while at OR, multiple ecchymotic areas noted to bilateral upper extremities. * Aubrie Ocampo PA - 07/17/2020 6:53 PM EST GI called with recs: Can stop protonix and ocreotide drip Start ppi daily Follow up with gi in couple of weeks Can continue asa Start liquid diet and advance Aubrie Ocampo PA-C Medicine * Kamala Nassar PA - 07/17/2020 8:24 AM EST Patient Name: Camilo Hess Date of : 1975 Attending Physician: Demetris Salter MD Subjective: Length of stay: 2 days Interval History: Pt didn't sleep well overnight as he was up every hr going to the bathroom. His stool was initially dark in color but now it is just pure liq uid. No overt blood noted in stools. Pt denies any nausea/vomting or abdominal pain. Very hungry and asked if he can start eating after colonoscopy. Overall feels much better and states he no longer has any lightheadedness or dizziness even with walking back and forth to the bathroom. Pt states he is just very tir ed because he did not sleep well last night. Current Hospital Problem List: Principal Problem: Acute upper GI bleed Active Problems: HTN (hypertension) Diabetes mellitus Alcohol abuse Pancreatic mass Vasovagal syncope Acute blood loss anemia Objective: Vital signs in last 24 hours: Temp: [36.3 C (97.3 F)-36.8 C (98.2 F)] 36.8 C (98.2 F) Pulse: [53-77] 61 Resp: [16-18] 16 BP: (90-125)/(54-87) 124/87 SpO2: [95 %-99 %] 95 % O2 Therapy: Room air O2 Flow Rate (L/min): [2 L/min-3 L/min] 2 L/min O2 Flow Rate (L/min) Av.5 L/min Min: 2 L/min Max: 3 L/min Intake/Output last 3 shifts: I/O last 3 completed shifts: In: 3105.9 [I.V.:3105.9] Out: 1850 [Urine:1850] Intake/Output this shift: No intake/output data recorded. Physical Exam: Gen: Alert and oriented x3. In no acute distress CV: regular rate and rhythm, normal s1 and s2, no extra heart sounds, no murmur, rub or gallop. JVP not elevated. Resp: clear to auscultation bilaterally, good air entry, no wheeze, rhonchi or c rackles Abd: soft, non-tender, non-distended, active bowel sounds. Ext: warm and well perfused, pulses intact at radial bilaterally, no cyanosis, c lubbing or edema. LABS: Recent Labs Lab 07/15/20210507/16/20 1221 07/17/20 042 HCT 29.7* 27.0* 27.2* HGB 9.9* 8.9* 8.9* MCH 28.2 27.8 28.1 MCHC 33.4 33.0 32.9 MCV 84.6 84.5 85.5 PLT 171 178 210 RDW 16.8* 16.9* 16.8* WBC 5.0 4.5 4.6 Recent Labs Lab 07/15/20210507/16/20 122 NA 132* 135* K 3.6 3.8 CL 102 107 BICARBONATE 23 23 GLUCOSE 78 117 BUN 10 8 CREATININE 0.62* 0.75 BCR 16 11 GFRAA >90 >90 GFRNONAA >90 >90 Lab Results Component Value Date CALCIUM 7.8 (L) 07/16/2020 PHOS 1.7 (L) 01/23/2016 MEDICATIONS: Scheduled Meds:Scheduled Meds: folic acid 1 mg Oral Daily gabapentin 600 mg Oral TID influenza vac split quad 0.5 mL Intramuscular Give Now insulin glargine 10 Units Subcutaneous BID insulin lispro 1-5 Units Subcutaneous Q4H lidocaine 2 patch Transdermal Daily metoprolol 50 mg Oral BID ramipril 5 mg Oral Daily thiamine 100 mg Oral Daily Continuous Infusions: dextrose 5 % and 0.9% NaCl 100 mL/hr at 07/17/20 0031 octreotide (SANDOSTATIN) infusion 50 mcg/hr (07/17/20 042) pantoprozole (PROTONIX) infusion 8 mg/hr (07/16/20 122) PRN Meds:.dextrose, glucagon (human recombinant), glucose, morphine sulfate, ond ansetron, oxyCODONE Assessment/Plan: Current Problem List: Patient Active Problem List Diagnosis HTN (hypertension) Ulcer - lesion Blurry vision Physical deconditioning Diabetes mellitus Alcohol abuse Acute alcoholic pancreatitis DKA (diabetic ketoacidoses) RAYMOND (acute kidney injury) Pancreatitis Alcohol-induced chronic pancreatitis Acute upper GI bleed Pancreatic mass Vasovagal syncope Acute blood loss anemia Vasovagal Syncope: Etiology felt to be related to hypovolemia from acute blood loss. Pt without further episode of syncope post blood transfusion. PT/OT Acute Upper GI Bleed: Transferred from OSH for GI services GI consulted on admission Pt started on Protonix as well as Octreotide gtt NPO EGD without evidence of active bleed Go Lytely prep and Colonoscopy planned for today. Acute Blood Loss Anemia: Significant drop of H/H form baseline Transfused 2 units of pRBC at [facility] prior to transfer. Pt H/H now 8.9/27.2 Cont to monitor H/H and transfuse as indicated. Alcohol Abuse: Pt denies any recent ETOH intake No evidence of withdrawal this hospitalization. Cont to monitor for withdrawal signs or sx CIWA protocol as indicated Social Work consulted for substance abuse. MRI with Hepatic steatosis and splenic varicies. Pancreatic mass Patient had presence of a possible pancreatic mass noted on CT imaging. MRI consistent with pancreatic chronic pseudocyst. DM II: Outpt pt on Lantus 54 units nightly with ISS On admission, pt Lantus dose reduced to 15 units and he was continued on a SS for mealtime coverage. D 5 infusion while NPO Resume Con Carb Diet post procedure. Essential Hypertension: Cont on outpt meds of Ramipril and Lopressor Continue t blood pressure monitoring and dose adjustment of medications. Weight Loss and Low Sodium Diet No evidence of end organ damage DVT Prophylaxis with None due to Acute GI bleed Diet: NPO Code status: Full Code Disposition: TBD Discussed with: Patient and Attending Time Spent: 35 minutes: 50% or more of this time was in regards to counseling p atient and coordinating their care MARLENY Deras Hospitalist Associated attestation - Demetris Salter MD - 07/17/2020 10:30 PM EST Attending note: I saw and evaluated the patient. Discussed with the resident and agree with the residents findings and plans as written, along with any supplemental dictated a nd/or attending documentation in the patient record by myself. Colonoscopy was performed this evening, a total of 9 polyps were removed from th e colon. Per GI it is okay to stop the octreotide drip, Protonix drip, and start PPI pricila y. He was suggested to follow-up within few weeks with gastroenterology. They allowed him to start on clear liquid diet. We will advance diet as tolerated. The pancreas mass turns out to be in chronic pseudocyst. Clinically this does n ot seem to be infected, and no blood loss into that cyst can be diagnosed. Demetris Salter MD * Nani Adame RN - 07/17/2020 7:01 AM EST Pt refusing bed alarm throughout night. Stated to poem writer "I'm not a baby I don't need to be treated like one" Hop Strainer educated pt on the reason for the bed alarm but pt is reluctant. Pt instructed to call before getting up to go to the bathr oom but pt has gotten up multiple times to the bathroom without calling prior. Rico ellis has continued to frequently round for safety but pt still refusing bed ala rm. * Nani Adame RN - 07/17/2020 2:58 AM EST Pt has drank half of Golytely and is now NPO. Pt has had no BM since beginning g olytely. * Gustavo Duke MD - 07/16/2020 5:33 PM EST Inpatient Progress Note Subjective Patient seen and examined at bedside. Currently patient reports feeling hungry and wants to eat food as soon as possible and was made aware that he has an MRI as well as EGD planned for today and he will be able to eat afterwards. Objective Temp: [36.3 C (97.3 F)-36.8 C (98.2 F)] 36.8 C (98.2 F) Pulse: [62-78] 62 Resp: [16-18] 18 BP: (98-110)/(63-76) 98/63 SpO2: [95 %-100 %] 98 % O2 Therapy: Room air Physical Exam: Constitutional: Age-appropriate. No distress. ENT: appear normal with no external deformity of the ears or nose Cardiovascular: Normal rate, regular rhythm, normal heart sound Pulmonary/Chest: No respiratory distress. The patient has no wheezes, no rales. GI: Soft. Bowel sounds are normal. There is no tenderness. Musculoskeletal: Patient exhibits no edema or tenderness. Neurological: Patient is alert and oriented to person, place, and time. Skin: No rash noted. Patient is not diaphoretic. Psych: calm and cooperative with normal speech Nursing note and vitals reviewed. Laboratory Data (Most Recent over Past 3 Years) Lab 07/15/20210507/16/20 1221 WBC 5.0 4.5 HGB 9.9* 8.9* HCT 29.7* 27.0* MCV 84.6 84.5 PLT 171 178 Lab 07/15/20210507/16/20 1221 NA 132* 135* K 3.6 3.8 CL 102 107 BICARBONATE 23 23 GLUCOSE 78 117 BUN 10 8 CREATININE 0.62* 0.75 Lab 07/15/202105 HGBA1C 9.2* Lab 07/15/20210507/16/20 1221 PROT 5.2* 4.5* ALBUMIN 3.4* 2.8* AST 25 31 ALT 16 18 TBILI 1.2* 0.3 ALKPHOS 67 59 No results found. Assessment/Plan Camilo Hess is a 45 y.o. old who is here with, Principal Problem: Acute upper GI bleed Active Problems: HTN (hypertension) Diabetes mellitus Alcohol abuse Pancreatic mass Vasovagal syncope Acute blood loss anemia 1. Acute upper GI bleed Currently on a Protonix drip along with octreotide. Hemoglobin around 12 and marleny veronique presented with hemoglobin around 7 and likely source is upper GI bleed wit h concerns for possible varices given alcohol history. Plan is for EGD today 2. Alcohol abuse Patient denies any recent alcohol intake, and does not appear to be in any withd rayshawn symptoms. We will monitor closely for possible withdrawal although this i s unlikely given the fact that he was in [facility] for several days without any significant events. States his last binging episode was last week. Channing mason on alcohol use. 3. Hypoalbuminemia Possibly secondary to alcohol use and nutritional deficiency. Monito r nutritional intake and monitor albumin levels. 4. Pancreatic mass Patient had presence of a possible pancreatic mass noted on CT imagi ng. Possibly an existing pancreatic pseudocyst which was diagnosed pr eviously. MRI abdomen done 5. Vasovagal syncope Most likely related to hypovolemia from acute blood loss. Clinically appears st able 6. Acute blood loss anemia Significant drop from baseline hemoglobin of 12 and patient received 2 units of PRBC prior to transfer and currently transfused for hemoglobin less than 7.5 Chronic Problems: 7. HTN (hypertension) Monitor the patient's pressures and continue on outpatient blood pressure regime n. The patient is on Lopressor and ramipril as an outpatient. 8. Diabetes mellitus Patient has a history of diabetes and normally takes a significant dose of Lantu s with sliding scale. We have decreased him to 10 units of Lantus twice daily a long with a low-dose sliding scale. Presently he is n.p.o. but is on D5 fluids. 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 DVT Prophylaxis: SCD's while in bed Code Status: Full Code Disposition: home I saw and examined the patient myself. I have reviewed pertinent labs, imaging, EKG independently myself. Overall amount of data reviewed, level of risk, comple xity and medical decision making is: high. Time spent providing, discussing, and coordinating care today: 25 minutes Gustavo Duke MD Final Block Press Operatorlegal activity adjudicator Department of Hospital Medicine * Dariana Love RN - 07/16/2020 1:15 PM EST Case Management Screen & Assessment Patient Name: Camilo Hess Gender: male Date of : 1975 Admission Dx: Upper GI bleed Acute upper GI bleed Age: 45 y.o. Admission: 07/15/2020 7:07 PM Attending Provider: Gustavo uDke MD High Risk Criteria - Prior to Admission/Upon Arrival TRUCK WASHER-Type of Residence: Private Residence TRUCK WASHER- Home Care Services: No Limited Home Supports/Lives Alone?: Yes Multi trauma/Critical care/Step down admit?: No Head/Spinal cord injury?: No Self Pay: No Multiple ED visits?: No Related/Unplanned readmission within 30 days?: No Complex/New medical issues: GI Bleed Relevant comorbidities: ETOH, HTN, DM, pancreatitis Screening Outcome Social Work Consult Needed?: Yes Social Work Consult Order Exists: Acknowledge Further Case Management Needs?: No Case Management Needs Chart Review PCP Verified?: Patient has PCP Prior to Admission: Functional/Environmental Assessment Bathing: Independent Dressing: Independent Toileting: Independent Medication administration: Independent Transfers: Independent Ambulation: Independent Meal preparation: Independent Number of stairs into home: 3 Number of stairs to bathroom: 0 Number of stairs to bedroom: 0 Discharge Planning Living Arrangements: Alone Support Systems: Parent Type of Residence: Private residence Patient/family informed of need for discharge planning?: Yes Patient expects to be discharged to:: home Patient/Agent informed of choice and given written list?: Patient/agent declined list Actual discharge location : Home-No Needs Does the patient need discharge transport arranged?: No Note: Chart reviewed, met with pt at bedside, introduced role of CM and discuss DC plan. Pt state she lives alone and he is independent with ADL's. No CM needs identified at this time, will remain available. Dariana Love * Deangelo Vanessa - 07/16/2020 1:15 PM EST History & Physical Patient Camilo Hess PCP Mark Reyes MD Admission Date 07/15/2020 Chief Complaint/Reason for Admission: Camilo is coming in today as a transfer from another hospital , due to concerns f or GI bleeding. Subjective History of Presenting Illness Mr. Camilo Hess is a 45 y.o. male with a past medical history as mentioned be low, presenting today for evaluation of a possible upper GI bleed. The patient came to us as a transfer from [facility] where he was being managed f or anemia. Patient had syncope at home and said that he has been having these e pisodes where he passes out. During a few of these episodes he fell and sustaine d injuries to his back and left flank. When he went to the hospital he was found to be anemic. The patient had episodes of ground coffee emesis and dark tarry s tools at [facility]. Patient had progressively declining hemoglobin l evel, prompting [facility] to transfuse him 2 units of red blood cells. Jessa marquez was transferred to [facility] for evaluation of a possible uppe r GI bleed and endoscopy. The patient today denies any emesis, however his last BM which occurred yesterday night was described as being dark and tarry. He cur rently complains about lumbar spine tenderness and left flank pain due to injuri es from his fall. Patient does have a remote history of alcohol abuse but state s that he has not drank in several days. Patient was able to provide a history. 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 He lives with his family. He reports that he has been smoking ci [employer]. He has a 20.00 pack-year smoking history. He does not have any smokele ss tobacco history on file. He reports current alcohol use. Reports current alco hol use as being significantly less than before. He drank half a bottle of vodka daily for the past 10 years up until about a year ago. He reports that he does not use drugs. Travel: No recent history of long distance travel. Family History His family history includes Heart disease in his father. Home Medications Medication Sig Aspirin 81 MG Oral Tablet Delayed Release Take 81 mg by mouth daily Folic Acid 1 MG Oral Tablet (FOLVITE) Take 1 mg by mouth daily Gabapentin 300 MG Oral Capsule (NEURONTIN) Take 600 mg by mouth Three times pricila y glucose blood (FREESTYLE LITE) test strip UAD test 4 times daily. DX:250 insulin aspart (NOVOLOG FLEXPEN) 100 UNIT/ML injection Tidac: per scale - mdd 50units insulin glargine (LANTUS) 100 UNIT/ML injection Inject 54 Units into the skin ni angie. Use as directed at hs. mdd 30 units Insulin Pen Needle 31G X 6 MM MISC Use as directed. Use as directed. mdd 4 Lancets 30G MISC Use as directed. mdd 4 250.02 metoprolol (LOPRESSOR) 100 MG tablet Take 0.5 tablets by mouth 2 (two) times melani ly. pantoprazole (PROTONIX) 40 MG tablet TAKE ONE TABLET BY MOUTH EVERY DAY Ramipril 5 MG Oral Capsule (ALTACE) Take 5 mg by mouth daily Thiamine HCl 100 MG Oral Tablet (B-1) Take 100 mg by mouth daily clonidine (CATAPRES) 0.1 MG tablet Take 1 tablet by mouth 2 (two) times daily. Allergies: Patient has no known allergies. Review of Systems Constitutional: Negative. HENT: Negative. Eyes: Negative. Respiratory: Negative. Cardiovascular: Negative. Gastrointestinal: Positive for abdominal pain. Endocrine: Negative. Genitourinary: Negative. Musculoskeletal: Positive for back pain and gait problem. Skin: Negative. Hematological: Negative. Psychiatric/Behavioral: Negative. Objective Temp: [36.3 C (97.3 F)-36.6 C (97.9 F)] 36.3 C (97.3 F) Pulse: [64-78] 64 Resp: [16-18] 18 BP: (104-110)/(68-76) 110/71 SpO2: [95 %-100 %] 98 % O2 Therapy: Room air Physical Exam Constitutional: He is oriented to person, place, and time. He does not appear il l. Patient has some pallor noted and appears fatigued as well. HENT: Head: Normocephalic and atraumatic. Nose: Nose normal. No congestion. Eyes: Pupils are equal, round, and reactive to light. Patient has some conjunctival pallor noted. Neck: No muscular tenderness present. No neck rigidity. Cardiovascular: Normal rate and regular rhythm. No murmur heard. Pulmonary/Chest: No respiratory distress. He has no wheezes. Abdominal: Soft. He exhibits no distension. There is abdominal tenderness in the epigastric area. Musculoskeletal: General: Tenderness present. No swelling. Left hip: He exhibits tenderness. Lumbar back: He exhibits tenderness. Neurological: He is alert and oriented to person, place, and time. Skin: No erythema. No jaundice or pallor. Psychiatric: Mood normal. Laboratory Data (Most Recent over Past 3 Years) Lab 07/15/20210507/16/20 1221 WBC 5.0 4.5 HGB 9.9* 8.9* HCT 29.7* 27.0* MCV 84.6 84.5 PLT 171 178 Lab 07/15/20210507/16/20 1221 NA 132* 135* K 3.6 3.8 CL 102 107 BICARBONATE 23 23 GLUCOSE 78 117 BUN 10 8 CREATININE 0.62* 0.75 Lab 07/15/20 210 HGBA1C 9.2* Lab 07/15/20210507/16/20 1221 PROT 5.2* 4.5* ALBUMIN 3.4* 2.8* AST 25 31 ALT 16 18 TBILI 1.2* 0.3 ALKPHOS 67 59 All laboratory, imaging and other diagnostics have been personally reviewed by abner hendricks Assessment & Plan Mr. Camilo Hess is a 45 y.o. male who is here for evaluation of a possible up per GI bleed. He was transferred from [facility] due to coffee ground emesis and dark tarry stools suspicious for a upper GI bleed. Active Problems: Acute upper GI bleed Currently on a Protonix drip along with octreotide. Patient HGB, HCT, and RBC doll s declined from 07/15/20; we will continue to follow serial blood counts to see i f the patient needs any further transfusion. GI consulted as he may need a possi ble endoscopy. Currently is NPO Alcohol abuse Patient denies any recent alcohol intake, and does not appear to be in any withd rayshawn symptoms. We will monitor closely for possible withdrawal although this i s unlikely given the fact that he was in [facility] for several days without any significant events. States his last binging episode was last week. C yvettensel on alcohol use. Hypoalbuminemia Possibly secondary to alcohol use and nutritional deficiency. Monitor nutrition al intake and monitor albumin levels. Pancreatic mass Patient had presence of a possible pancreatic mass noted on CT imaging. Possibl y an existing pancreatic pseudocyst which was diagnosed previously. MRCP or MRI to confirm. Vasovagal syncope Most likely related to hypovolemia from acute blood loss. We will get a physica l therapy and OT evaluation once the patient is more stable. Monitor vitals. Acute blood loss anemia Secondary to possible upper GI bleed. consulted GI to evaluate further. Chronic Problems: HTN (hypertension) Monitor the patient's pressures and continue on outpatient blood pressure regime n. The patient is on Lopressor and ramipril as an outpatient. Diabetes mellitus Patient has a history of diabetes and normally takes a significant dose of Lantu s with sliding scale. We have decreased him to 10 units of Lantus twice daily a long with a low-dose sliding scale. Presently he is n.p.o. but is on D5 fluids. 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 DVT Prophylaxis: SCD's while in bed GI Prophylaxis: PPi Reason: Known GI bleed Disposition: Will admit to inpatient status as he meets the clinical criteria an d is expected to stay for >2 midnights based on the current severity of the disease Code Status: Full Code Signature: Deangelo Vanessa MS3 Date/Time: July 16, 2020 1:16 PM Associated attestation - Gustavo Duke MD - 07/16/2020 5:29 PM EST I saw and evaluated the patient. Discussed with the medical student and agree w ith the students findings and plans as written, along with any supplemental dict ated and/or attending documentation in the patient record by myself. * Nini Marks, PharmD - 07/15/2020 9:21 PM EST Pharmacist Admission Medication History and Suggestions Camilo Hess, 45 y.o. Source of med rec information: [X] Patient [X] Pharmacy database (Dr. Rafiq sandra [facility]) Outpatient pharmacy where patient fills prescriptions: [facility] [address] [place], [place] - [address] [facility] Home Medications Medication Sig Aspirin 81 MG Oral Tablet Delayed Release Take 81 mg by mouth daily Folic Acid 1 MG Oral Tablet (FOLVITE) Take 1 mg by mouth daily Gabapentin 300 MG Oral Capsule (NEURONTIN) Take 600 mg by mouth Three times pricila y insulin aspart (NOVOLOG FLEXPEN) 100 UNIT/ML injection Tidac: per scale - mdd 50units Per patient, unable to recall sliding scale insulin glargine (LANTUS) 100 UNIT/ML injection Inject 54 Units into the skin ni ghtly. Use as directed at hs. mdd 30 units Per patient, takes 32 units in morning, 40 units at bedtime metoprolol (LOPRESSOR) 100 MG tablet Take 0.5 tablets by mouth 2 (two) times melani ly. Per patient, takes 1 tablet twice daily (recently increased) pantoprazole (PROTONIX) 40 MG tablet TAKE ONE TABLET BY MOUTH EVERY DAY Ramipril 5 MG Oral Capsule (ALTACE) Take 5 mg by mouth daily Thiamine HCl 100 MG Oral Tablet (B-1) Take 100 mg by mouth daily Lab Results Component Value Date CREATININE 0.8 01/25/2016 Of note: Patient is a good historian and was able to confirm their medication li st. Based on patient's fill history, patient seems to be non-compliant with med ications. Per patient has prescription drug coverage, but has difficulties affording medic ations due to unemployment. The following discrepancies with the patient's stated home regimen were identifi ed: Removed: clonidine Modified: insulin glargine, metoprolol Please note that the patient has been taking the following medications different ly than prescribed: metoprolol (LOPRESSOR) 100 MG tablet Take 0.5 tablets by mouth 2 (two) times melani ly. Per patient, takes 1 tablet twice daily (recently increased) The patient has been prescribed the following medications, however they have not filled them in the past 90 days: Ramipril (last filled 03/2020) - per patient, has enough supply Patient insists that they are taking the following medications, however they cou ld not be verified with outpatient pharmacy records/other sources: Aspirin At the time of interview it was discussed with the patient/patients representati ve that the pharmacist may have medication related suggestions that will be aurora ed with patient/patients operations representative, admitting team (if admitted), and the p atients prescribing clinician. Thank you, Nini Marks PharmD PGY-2 Geriatrics Career Representative * Koki Benitez RN - 07/15/2020 7:25 PM EST Pt. Arrived to the floor via EMS. S/p one unit PRBC [facility]. Both Protonix gtt and Octreotide gtt. D/c by EMS per protocol. Pt. VSS. Able to stand pivot to bed with one assist. * Vijaya Ocampo RN - 07/15/2020 7:07 PM EST Patient arrived from [facility]. software engineering manager paged, awaiting return call. * Vijaya Ocampo RN - 07/15/2020 4:10 PM EST RN to RN report received on patient from Liliana LACEY @ [facility] ). Pt currently running a unit of blood, Protonix gtt, and octreotide gtt. Per RN BP 95/64, HR 75, RR 20 with SPO2 of 98%, Temp 97.6 and is A&O x 2-3, with STML. Pt scheduled to leave [facility] within 30 minutes with an arrival time between [id number]. documented in this encounter H&P Notes * Adrian Dejesus MD - 07/17/2020 9:06 AM EST PRESEDATION ASSESSMENT Diagnosis: Pre-Sedation Assessment Chief Complaint/History of Present Illness: GI bleed Past Medical/Surgical History: Past Medical History: Diagnosis Date Acute pancreatitis 02/16 admitted 02/16 to [facility] Acute respiratory failure 02/16 secondary to EtoH withdrawal. Intubated in MICU 02/16 Alcohol abuse Diabetes mellitus Dyslipidemia GERD (gastroesophageal reflux disease) Hypertension Past Surgical History: Procedure Laterality Date VASECTOMY Problems with Sedation/Anesthesia? no Potential Drug/Sedative Interaction? no Family History: family history includes Heart disease in his father. Review of Systems: No fevers or chills, usual state of health Current Medications: Medications Prior to Admission Medication Sig Dispense Refill Last Dose Aspirin 81 MG Oral Tablet Delayed Release Take 81 mg by mouth daily 07/14/2020 Folic Acid 1 MG Oral Tablet (FOLVITE) Take 1 mg by mouth daily 0 Gabapentin 300 MG Oral Capsule (NEURONTIN) Take 600 mg by mouth Three suha es daily 07/14/2020 glucose blood (FREESTYLE LITE) test strip UAD test 4 times daily. DX:250 1 each 0 07/15/2020 insulin aspart (NOVOLOG FLEXPEN) 100 UNIT/ML injection Tidac: per scale - mdd 50units 15 mL 5 07/14/2020 insulin glargine (LANTUS) 100 UNIT/ML injection Inject 54 Units into the skin nightly. Use as directed at hs. mdd 30 units 15 mL 5 07/14/2020 Insulin Pen Needle 31G X 6 MM MISC Use as directed. Use as directed. mdd 4 100 each 5 07/15/2020 Lancets 30G MISC Use as directed. mdd 4 250.02 100 each 5 07/15/2020 metoprolol (LOPRESSOR) 100 MG tablet Take 0.5 tablets by mouth 2 (two) ti mes daily. 30 tablet 5 07/14/2020 pantoprazole (PROTONIX) 40 MG tablet TAKE ONE TABLET BY MOUTH EVERY DAY 3 0 tablet 3 07/14/2020 Ramipril 5 MG Oral Capsule (ALTACE) Take 5 mg by mouth daily 07/14/2020 Thiamine HCl 100 MG Oral Tablet (B-1) Take 100 mg by mouth daily 020 Allergies/Reactions No Known Allergies Physical Exam: Visit Vitals BP 124/87 (BP Location: Left arm, Patient Position: Lying) Pulse 61 Temp 36.8 C (98.2 F) (Oral) Resp 16 Ht 1.753 m (5' 9") Wt 77.9 kg (171 lb 12.8 oz) SpO2 95% BMI 25.37 kg/m Airway: III Lungs:CTA Heart:RRR ASA Physical Status Classification: ASA 3 - Patient with moderate systemic disea se with functional limitations Treatment Plan: Monitored Anesthesia Care/GA Rationale: Comfort and analgesia Procedure: Colonoscopy Risks,alternatives and possible complications in regards to Colonoscopy under MA C/GA not limited to perforation,bleeding,infection and anesthesia related compli cations have been discussed in detail and informed consent has been obtained. I saw,examined and evaluated the patient personally. Discussed with the residen t/fellow and agree with the residents/fellows findings and plans as written, debra mahan with any supplemental dictated and/or attending documentation in the patient record by myself. Adrian Dejesus MD Division of GI Advanced Endoscopy * Adrian Dejesus MD - 07/16/2020 1:40 PM EST PRESEDATION ASSESSMENT Diagnosis: Pre-Sedation Assessment Chief Complaint/History of Present Illness: Coffee-ground emesis and melena Past Medical/Surgical History: Past Medical History: Diagnosis Date Acute pancreatitis 02/16 admitted 02/16 to [facility] Acute respiratory failure 02/16 secondary to EtoH withdrawal. Intubated in MICU 02/16 Alcohol abuse Diabetes mellitus Dyslipidemia GERD (gastroesophageal reflux disease) Hypertension Past Surgical History: Procedure Laterality Date VASECTOMY Problems with Sedation/Anesthesia? no Potential Drug/Sedative Interaction? no Family History: family history includes Heart disease in his father. Review of Systems: No fevers or chills, usual state of health Current Medications: Medications Prior to Admission Medication Sig Dispense Refill Last Dose Aspirin 81 MG Oral Tablet Delayed Release Take 81 mg by mouth daily 07/14/2020 Folic Acid 1 MG Oral Tablet (FOLVITE) Take 1 mg by mouth daily 0 Gabapentin 300 MG Oral Capsule (NEURONTIN) Take 600 mg by mouth Three suha es daily 07/14/2020 glucose blood (FREESTYLE LITE) test strip UAD test 4 times daily. DX:250 1 each 0 07/15/2020 insulin aspart (NOVOLOG FLEXPEN) 100 UNIT/ML injection Tidac: per scale - mdd 50units 15 mL 5 07/14/2020 insulin glargine (LANTUS) 100 UNIT/ML injection Inject 54 Units into the skin nightly. Use as directed at hs. mdd 30 units 15 mL 5 07/14/2020 Insulin Pen Needle 31G X 6 MM MISC Use as directed. Use as directed. mdd 4 100 each 5 07/15/2020 Lancets 30G MISC Use as directed. mdd 4 250.02 100 each 5 07/15/2020 metoprolol (LOPRESSOR) 100 MG tablet Take 0.5 tablets by mouth 2 (two) ti mes daily. 30 tablet 5 07/14/2020 pantoprazole (PROTONIX) 40 MG tablet TAKE ONE TABLET BY MOUTH EVERY DAY 3 0 tablet 3 07/14/2020 Ramipril 5 MG Oral Capsule (ALTACE) Take 5 mg by mouth daily 07/14/2020 Thiamine HCl 100 MG Oral Tablet (B-1) Take 100 mg by mouth daily 020 Allergies/Reactions No Known Allergies Physical Exam: Visit Vitals BP 110/71 (BP Location: Left arm, Patient Position: Lying) Pulse 64 Temp 36.3 C (97.3 F) (Oral) Resp 18 Ht 1.753 m (5' 9") Wt 77.9 kg (171 lb 12.8 oz) SpO2 98% BMI 25.37 kg/m Airway: III Lungs:CTA Heart:RRR ASA Physical Status Classification: ASA 3 - Patient with moderate systemic disea se with functional limitations Treatment Plan: Monitored Anesthesia Care/GA Rationale: Comfort and analgesia Procedure: EGD I saw,examined and evaluated the patient personally. Discussed with the residen t/fellow and agree with the residents/fellows findings and plans as written, debra mahan with any supplemental dictated and/or attending documentation in the patient record by myself. Risks,alternatives and possible complications in regards to EGD under MAC/GA not limited to perforation,bleeding,infection and anesthesia related complications have been discussed in detail and informed consent has been obtained. Adrian Dejesus MD Division of GI Advanced Endoscopy * Fer Winslow MD - 07/16/2020 12:09 AM EST History & Physical Patient Camilo Hess PCP Mark Reyes MD Admission Date 07/15/2020 Chief Complaint/Reason for Admission: Camilo is coming in today as a transfer from another hospital , due to concerns f or GI bleeding. Subjective History of Presenting Illness Mr. Camilo Hess is a 45 y.o. male with a past medical history as mentioned be low, coming in today with complaints of weakness with syncopal episodes at home. The patient came to us as a transfer from [facility] where he was b eing managed for anemia. Patient had syncope at home and said that he has been having these episodes where he passes out. When he went to the hospital he was found to be anemic. The only symptoms that the patient can recall were some epi sodes of emesis where he vomited up coffee-ground emesis. Patient had progressi vely declining hemoglobin level, prompting [facility] to transfuse him 2 units of red blood cells. They did not have any GI services so the patient was trans ferred to our hospital for further evaluation and possible need for endoscopy. Following transfusion the patient says that he feels better. He denied any dark -colored stools or obvious bleeding. Patient does have a remote history of alco hol abuse but states that he has not drank in several days. Patient was able to provide a history. 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 He lives with his family. He reports that he has been smoking cig arettes. He has a 20.00 pack-year smoking history. He does not have any smokeles s tobacco history on file. He reports current alcohol use. He reports that he do es not use drugs. Travel: No recent history of long distance travel. Family History His family history includes Heart disease in his father. Home Medications Medication Sig Aspirin 81 MG Oral Tablet Delayed Release Take 81 mg by mouth daily Folic Acid 1 MG Oral Tablet (FOLVITE) Take 1 mg by mouth daily Gabapentin 300 MG Oral Capsule (NEURONTIN) Take 600 mg by mouth Three times pricila y glucose blood (FREESTYLE LITE) test strip UAD test 4 times daily. DX:250 insulin aspart (NOVOLOG FLEXPEN) 100 UNIT/ML injection Tidac: per scale - mdd 50units insulin glargine (LANTUS) 100 UNIT/ML injection Inject 54 Units into the skin ni tly. Use as directed at hs. mdd 30 units Insulin Pen Needle 31G X 6 MM MISC Use as directed. Use as directed. mdd 4 Lancets 30G MISC Use as directed. mdd 4 250.02 metoprolol (LOPRESSOR) 100 MG tablet Take 0.5 tablets by mouth 2 (two) times melani ly. pantoprazole (PROTONIX) 40 MG tablet TAKE ONE TABLET BY MOUTH EVERY DAY Ramipril 5 MG Oral Capsule (ALTACE) Take 5 mg by mouth daily Thiamine HCl 100 MG Oral Tablet (B-1) Take 100 mg by mouth daily clonidine (CATAPRES) 0.1 MG tablet Take 1 tablet by mouth 2 (two) times daily. Allergies: Patient has no known allergies. Review of Systems Constitutional: Positive for activity change, diaphoresis and fatigue. HENT: Negative. Eyes: Negative. Respiratory: Negative. Cardiovascular: Positive for palpitations. Gastrointestinal: Positive for nausea. Endocrine: Negative. Genitourinary: Negative. Musculoskeletal: Positive for gait problem. Skin: Positive for pallor. Neurological: Positive for syncope and weakness. Hematological: Negative. Psychiatric/Behavioral: Negative. Objective Temp: [36.6 C (97.9 F)] 36.6 C (97.9 F) Pulse: [72-78] 72 Resp: [16-18] 16 BP: (104-109)/(68-76) 108/68 SpO2: [95 %] 95 % O2 Therapy: Room air Physical Exam Constitutional: He is oriented to person, place, and time. He appears ill. No di stress. Patient has some pallor noted and appears fatigued as well. HENT: Head: Normocephalic and atraumatic. Nose: Nose normal. No congestion. Mouth/Throat: Mucous membranes are dry. Eyes: Pupils are equal, round, and reactive to light. Patient has some conjunctival pallor noted. Neck: No muscular tenderness present. No neck rigidity. Cardiovascular: Normal rate and regular rhythm. No murmur heard. Pulmonary/Chest: No respiratory distress. He has no wheezes. Abdominal: Soft. He exhibits no distension. There is no abdominal tenderness. Musculoskeletal: General: No swelling or tenderness. Neurological: He is alert and oriented to person, place, and time. Skin: No erythema. There is pallor. No jaundice. Psychiatric: Mood normal. Laboratory Data (Most Recent over Past 3 Years) Lab 07/15/202105 WBC 5.0 HGB 9.9* HCT 29.7* MCV 84.6 PLT 171 Lab 07/15/202105 NA 132* K 3.6 CL 102 BICARBONATE 23 GLUCOSE 78 BUN 10 CREATININE 0.62* Lab 07/15/202105 HGBA1C 9.2* Lab 07/15/202105 PROT 5.2* ALBUMIN 3.4* AST 25 ALT 16 TBILI 1.2* ALKPHOS 67 All laboratory, imaging and other diagnostics have been personally reviewed by abner hendricks Assessment & Plan Mr. Camilo Hess is a 45 y.o. male who is here for Principal Problem: Acute upper GI bleed Patient has concerns for upper GI bleeding especially with history of alcohol ab use. He will be started on a Protonix drip along with octreotide. Patient was transfused 2 units of packed red blood cells, and blood counts have improved but we will continue to follow serial blood counts to see if the patient needs any further transfusion. GI to be consulted in the morning and for now we will keep the patient n.p.o. as he may need a possible endoscopy. Active Problems: HTN (hypertension) Monitor the patient's pressures and continue on outpatient blood pressure regime n. The patient is on Lopressor and ramipril as an outpatient. Diabetes mellitus Patient has a history of diabetes and normally takes a significant dose of Lantu s with sliding scale. We have decreased him to 15 units of Lantus twice daily a long with a low-dose sliding scale. Presently he is n.p.o. so I have started th e patient on D5 fluids as well. Alcohol abuse Patient denies any recent alcohol intake, and does not appear to be in any withd rayshawn symptoms. We will monitor closely for possible withdrawal although this i s unlikely given the fact that he was in [facility] for several days without any significant events. Pancreatic mass Patient had presence of a possible pancreatic mass noted on CT imaging. He may need a more focused MRCP or MRI once clinically stable. Vasovagal syncope Most likely related to hypovolemia from acute blood loss. We will get a physica l therapy and OT evaluation once the patient is more stable. Monitor vitals. Acute blood loss anemia Secondary to possible upper GI bleed. We will consult GI and evaluate further. DVT Prophylaxis: SCD's while in bed GI Prophylaxis: PPi Reason: Known GI bleed Disposition: Will admit to inpatient status as he meets the clinical criteria an d is expected to stay for >2 midnights based on the current severity of the disease Code Status: Full Code Fer Winslow MD Acoustical Installer, Section of Hospital Medicine Coal Getter of Documentation Improvement Beeper: Department of Internal Medicine [facility] Signature: Fer Winslow MD Date/Time: July 16, 2020 12:09 AM documented in this encounter Consult Notes * Yamel Ellington, COMMERCIAL DECORATOR - 07/16/2020 3:14 PM EST Associated Order(s): IP CONSULT TO SOCIAL WORK Social Work Brief Screen Patient Name: Camilo Hess Pronoun Date of : 1975 County of Residence: [place] Admitting Dx: Upper GI bleed Acute upper GI bleed Admitting Provider: Gustavo Duke MD Referral Type: Inpatient Referral Source: Social Work Reason for Referral: Alcohol Use/Abuse Substance Use/Abuse Date: July 16, 2020 Emergency Contacts Name: julius Hess Mother Address: Home: Work: Primary Caregiver: self Informant(s): Patient Authorized to Consent: self SW consulted for alcohol use. AUDIT Assessment Most Recent Value Complete AUDIT? Complete Alcohol Use Disorders Identification Test (AUDIT) How often do you have a drink containing alcohol? Monthly or less How many drinks containing alcohol do you have on a typical day when you are dri nking? 7, 8, or 9 How often do you have six or more drinks on one occasion? Less than Monthly How often during the last year have you found that you were not able to stop dri nking once you had started? Never How often during the last year have you failed to do what was normally expected from you because of drinking? Never How often during the last year have you needed a first drink in the morning to g et yourself going after a heavy drinking session? Never How often during the last year have you had a feeling of guilt or remorse after drinking? Less than monthly How often during the last year have you been unable to remember what happened th e night before because you had been drinking? Never Have you or someone else been injured as a result of your drinking? No Has a relative or freind or doctor or another health worker been concerned about your drinking or suggested you cut down? Yes, during the last year AUDIT Score (!) 10 SW met with pt to complete AUDIT assessment. Pt reports that he is feeling the s hannah today as when he came in. He reports that he lives alone and things have bee n fine at home. He reports that he occasionally will "fall off the wagon" and dr king for 2-3 days, about a half bottle of liquor a day during that time. He repor ts that this does not happen consistently and could not provide an estimate of h ow often it occurs. He reports that he usually gets sick for about a day from dr kinging this amount, but denies ever having withdrawal symptoms. He reports that he has been to rehab three times in the past, as well as outpatient counseling/g ksenia and AA meetings. He reports that working and staying busy is the best way for him to stay on track and stay sober. He was not receptive to much conversati on, so full psychosocial was not able to be completed. He denies any needs from SW at this time. SW remains available. Interventions Assessed for SW needs. Completed AUDIT assessment. Signature: Yamel Ellington Date: July 16, 2020 * Adrian Dejesus MD - 07/16/2020 1:40 PM EST Associated Order(s): IP CONSULT TO GI Gastroenterology Consult Note Reason for consult: Coffee-ground emesis and melena Physician requesting consult: Gustavo Duke MD Physician performing the consult: Dr. Dejesus HISTORY History of Presenting Illness Mr. Camilo Hess is a 45 y.o. man with a past medical history of alcoholism, p ancreatitis complicated by pseudocyst, diabetes mellitus, hyperlipidemia, GERD a nd hypertension who is admitted to the hospital for coffee-ground emesis followe d by melena and syncopal episodes. GI has been consulted for the same. Patient states that he started having significant nausea with vomiting 4 days ag o. He threw up multiple times a day on Thursday and and a little bit on Thursday. The emesis was described to be coffee-ground in color. Per patient, he filled out many buckets. He did not have any abdominal pain during this ord eal. As he did not eat, he did not have any bowel movements on these days in pa rticular. He does report a bowel movement yesterday which was pitch black in co lobo. He also reports having episodes of passing out since Thursday. He denies an y blood or blood in the stools that he has seen. He reports being an alcoholic for 5 years in the past as well as on and off at the moment. He has not had alc ohol in the last 2 weeks. He denies any use of NSAIDs or blood thinners. He de nies any illicit drugs. There is no family history of hepatobiliary or pancreat ic cancers. Patient initially presented to outside hospital for syncope. There, he was foun d to have anemia and was given 2 units of PRBCs and transferred to [facility] for gastroenterology consult Patient also had a CT scan over that showed a 4.2 cm partially calcified lesion in the pancreatic body without any pancreatic ductal dilation. Patient reports that he has a history of pancr eatic pseudocyst and has had endoscopies with drainage in the past, possibly 5 y ears ago Previous Endoscopies: Past Medical & Surgical History Past Medical History: Diagnosis Date Acute pancreatitis 02/16 admitted 02/16 to [facility] Acute respiratory failure 02/16 secondary to EtoH withdrawal. Intubated in MICU 02/16 Alcohol abuse Diabetes mellitus Dyslipidemia GERD (gastroesophageal reflux disease) Hypertension Past Surgical History: Procedure Laterality Date VASECTOMY No Known Allergies Home Medications Medication Sig Aspirin 81 MG Oral Tablet Delayed Release Take 81 mg by mouth daily Folic Acid 1 MG Oral Tablet (FOLVITE) Take 1 mg by mouth daily Gabapentin 300 MG Oral Capsule (NEURONTIN) Take 600 mg by mouth Three times pricila y glucose blood (FREESTYLE LITE) test strip UAD test 4 times daily. DX:250 insulin aspart (NOVOLOG FLEXPEN) 100 UNIT/ML injection Tidac: per scale - mdd 50units insulin glargine (LANTUS) 100 UNIT/ML injection Inject 54 Units into the skin ni ghtly. Use as directed at hs. mdd 30 units Insulin Pen Needle 31G X 6 MM MISC Use as directed. Use as directed. mdd 4 Lancets 30G MISC Use as directed. mdd 4 250.02 metoprolol (LOPRESSOR) 100 MG tablet Take 0.5 tablets by mouth 2 (two) times melani ly. pantoprazole (PROTONIX) 40 MG tablet TAKE ONE TABLET BY MOUTH EVERY DAY Ramipril 5 MG Oral Capsule (ALTACE) Take 5 mg by mouth daily Thiamine HCl 100 MG Oral Tablet (B-1) Take 100 mg by mouth daily clonidine (CATAPRES) 0.1 MG tablet Take 1 tablet by mouth 2 (two) times daily. Medications at this time folic acid 1 mg Oral Daily gabapentin 600 mg Oral TID influenza vac split quad 0.5 mL Intramuscular Give Now insulin glargine 10 Units Subcutaneous BID insulin lispro 1-5 Units Subcutaneous Q4H lidocaine 2 patch Transdermal Daily metoprolol 50 mg Oral BID ramipril 5 mg Oral Daily thiamine 100 mg Oral Daily dextrose, glucagon (human recombinant), glucose, morphine sulfate, ondansetron, oxyCODONE dextrose 5 % and 0.9% NaCl 100 mL/hr at 07/16/20 0941 octreotide (SANDOSTATIN) infusion 50 mcg/hr (07/15/20 2221) pantoprozole (PROTONIX) infusion 8 mg/hr (07/16/20 1223) Social History He is . He reports that he has been smoking cigarettes. He has a 20.00 p ack-year smoking history. He does not have any smokeless tobacco history on file . He reports current alcohol use. He reports that he does not use drugs. Family History family history includes Heart disease in his father. Review of systems: Complete ROS performed and found to be negative except those mentioned in the HP I. PHYSICAL EXAMINATION Blood pressure 110/71, pulse 64, temperature 36.3 C (97.3 F), temperatur e source Oral, resp. rate 18, height 1.753 m (5' 9"), weight 77.9 kg (171 lb 12. 8 oz), SpO2 98 %. Physical Exam Constitutional: He is oriented to person, place, and time and well-developed, we ll-nourished, and in no distress. No distress. HENT: Head: Normocephalic and atraumatic. Mouth/Throat: Oropharynx is clear and moist. Eyes: Pupils are equal, round, and reactive to light. Conjunctivae and EOM are n ormal. No scleral icterus. Neck: Normal range of motion. Neck supple. Cardiovascular: Normal rate, regular rhythm and normal heart sounds. No murmur heard. Pulmonary/Chest: Effort normal and breath sounds normal. Abdominal: Soft. Bowel sounds are normal. He exhibits no distension. There is no abdominal tenderness. There is no rebound and no guarding. Musculoskeletal: Normal range of motion. General: No edema. Neurological: He is alert and oriented to person, place, and time. Skin: Skin is warm and dry. He is not diaphoretic. There is pallor. DATA REVIEW All relevant laboratory data, outside records and imaging that were available we re reviewed by me. Pertinent ones are listed here. Laboratory Data: Lab 07/15/20210507/16/20 1221 HGB 9.9* 8.9* HCT 29.7* 27.0* MCV 84.6 84.5 PLT 171 178 WBC 5.0 4.5 Lab 07/15/20210507/16/20 1221 NA 132* 135* K 3.6 3.8 CL 102 107 BICARBONATE 23 23 BUN 10 8 CREATININE 0.62* 0.75 Lab 07/15/20210507/16/20 1221 PROT 5.2* 4.5* ALBUMIN 3.4* 2.8* ALT 16 18 AST 25 31 ALKPHOS 67 59 TBILI 1.2* 0.3 Imaging and other investigations: See HPI ASSESSMENT Mr. Camilo Hess is a 45 y.o. man with a past medical history of alcoholism, p ancreatitis complicated by pseudocyst, diabetes mellitus, hyperlipidemia, GERD a nd hypertension who is admitted to the hospital for coffee-ground emesis followe d by melena and syncopal episodes. GI has been consulted for the same. The patient seems to have a hemodynamically significant gastrointestinal bleedin g associated with acute drop in hemoglobin and hematocrit manifested by Melena a nd coffee-ground emesis. The source of the GI bleed is likely upper GI tract. Di fferentials include peptic ulcer disease, gastritis, esophagitis, AVMs, gastropa thy, and neoplasm. RECOMMENDATIONS # Upper GI bleed - Secure 2 large bore IV cannulae if not already done so. - Monitor CBC Q8H. Transfuse to keep hematocrit > 21 (type and cross match). - Resuscitate the patient with IVF and blood products (obtain type and crossmatc h) as needed. - Coagulopathy should be reversed if present. - Avoid all anticoagulation, antiplatelet drugs, and NSAIDs. - C/w PPI and octreotide drip. - Continue on NPO status. - Plan for EGD today under anesthesia. # Pancreatic lesion - Likely related to pseudocyst in the past. - Per CT scan, 4.2 cm partially calcified lesion in the body of the pancreas wit hout any pancreatic ductal dilation. - Obtain CEA, CA 19-9 and alpha-fetoprotein as well as MRI with pancreatic mass protocol. The patient was discussed with Dr. Dejesus who agrees with the above assessment an d plan. Marshall Bee MD 07/16/2020 1:40 PM I saw,examined and evaluated the patient personally. Discussed with the residen t/fellow and agree with the residents/fellows findings and plans as written, debra ng with any supplemental dictated and/or attending documentation in the patient record by myself. Adrian Dejesus MD Division of GI Advanced Endoscopy documented in this encounter Miscellaneous Notes * Assessment & Plan Note - Nani Kelly, PT - 07/17/2020 10:23 AM EST Physical Therapy Acute Care Examination Medical Diagnosis: Acute upper GI bleed History of Present Illness: Per [facility] history and physical note on 07/16/20, "Mr. Camilo Hess is a 45 y.o. man with a past medical history of alcoholism, pancreatitis complicated by pseudocyst, diabetes mellitus, hyperlipidemia, GERD and hypertension who is admitted to the hospital for coffee-ground emesis followed by melena and syncopal episodes. GI has been consulted for the same. ? Patient states that he started having significant nausea with vomiting 4 days ago. He threw up multiple times a day on Thursday and and a little bit on Thursday. The emesis was described to be coffee-ground in color. Per patient, he filled out many buckets. He did not have any abdominal pain during this ordeal. As he did not eat, he did not have any bowel movements on these days in particular. He does report a bowel movement yesterday which was pitch black in color. He also reports having episodes of passing out since Thursday. He denies any blood or blood in the stools that he has seen. He reports being an alcoholic for 5 years in the past as well as on and off at the moment. He has not had alcohol in the last 2 weeks. He denies any use of NSAIDs or blood thinners. He denies any illicit drugs. There is no family history of hepatobiliary or pancreatic cancers. ? Patient initially presented to outside hospital for syncope. There, he was found to have anemia and was given 2 units of PRBCs and transferred to [facility] for gastroenterology consult Patient also had a CT scan over there that showed a 4.2 cm partially calcified lesion in the pancreatic body without any pancreatic ductal dilation. Patient reports that he has a history of pancreatic pseudocyst and has had endoscopies with drainage in the past, possibly 5 years ago" ? Date of Onset: Prior to admission. Date of Admission: 07/15/2020 7:07:00 PM Demographics: Age: 45 Gender: Male Past Medical History and Radiographics: Significant rehabilitation considerations: Past Medical History: DiagnosisDate ?Acute pancreatitis02/16 ?admitted 02/16 to [facility] ?Acute respiratory failure02/16 ?secondary to EtoH withdrawal. Intubated in MICU 02/16 ?Alcohol abuse? ?Diabetes mellitus? ?Dyslipidemia? ?GERD (gastroesophageal reflux disease)? ?Hypertension? Past Surgical History: ProcedureLateralityDate ?VASECTOMY Rehabilitation Precautions/Restrictions: "I'm feelin" Pt reports back pain and rib pain, which he attributes to falling on ceramic tile during a blackout SUBJECTIVE Mental Status: Orientation:The patient is oriented to person, place and time. Command Following:The patient is able to follow 3+ step commands Prior Functional Level: The patient reported the premorbid level of function was ambulating independently without an assistive device inside and outside his home. Pt reports he was able to shower in standing and dress independently. Pt denies a history of falls except for when his blood count was low and he passed out the Thursday before admission. Pt reports he did his own cooking, cleaning and laundry, drove and did his own grocery shopping. 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 . If needed: Family member is willing to assist. Pt reports his parents and sister live near him and are supportive Home Environment: There are 3 steps to enter the home with Bilateral handrails. There is no ramp to enter the home. Home is a single level. Description of bed and bathroom accessibility: bedroom and full bathroom with tub shower on one level . Equipment Owned: grab bar in shower Pain: Patient currently complains of pain. Location: low back . Patient describes pain as Nonspecific. Verbal Scale: Patient reports a pain level of 7 out of 10. Will inform nurse. Will instruct in pain-relieving techniques. Will instruct in relaxation techniques. Will perform therapy only as tolerated. Will provide an intervention to address pain. Pain Medication Today: yes. s OBJECTIVE General Observation: Pt received supine in bed with the head of the bed elevated with left UE PIV No bed alarm noted at start of session. Range of Motion:AROM WFL for functional activities performed this visit Strength:Strength WFL for functional activities performed this visit Skin Integrity Screen: Per nursing notes pt has bruising left thigh, ribs Tone/Spasticity: No relevant impairments. Sensation: Impaired as follows: Pt reports tingling in bilateral feet for about 6 months which he attributes to diabetes Balance: Independent and within functional limits. Endurance: fair (+). Pt reports lightheadedness after amb 200 feet Coordination: Coordination WFL for functional activities performed this visit Therapeutic/Functional Activities: Bed Mobility: Within normal limits. Transfers: Patient transferred sit to/from stand with independence. Locomotion/Wheelchair: Not assessed. Locomotion/Gait/Ambulation: Patient was independent with gait/ambulation for 200 feet . No assistive devices were required. steady, even steps. Pt managing IV pole independently, is able to turn 180 degrees, take steps backward, without loss of balance. Pt also amb to and from bathroom independently, able to manage IV pole, small space in bathroom and pericare independently Stairs: Patient was independent for one step (freestanding step in room) x3 trials with support on left to simulate rail . No equipment was used. Vital Signs: Stable. Outcome Measures: [facility] AM-PAC "6 Clicks" Basic Mobility Inpatient Short Form: Turning over in bed: No difficulty (4) Sitting down on and standing up from a chair with arms: No difficulty (4) Moving from lying on back to sitting on the side of the bed: No difficulty (4) Moving to and from a bed to a chair (including a wheelchair): No help (4) Walking in hospital room: No help (4) Climbing 3-5 steps with a railing: No help (4) Raw Score 24 /24. Interventions: None provided today. Education: Educational needs: Importance of activity. Mobility Techniques. Role of Physical Therapy. Safety. Treatment Plan. Barriers to Learning: Acuity of illness/injury. Learning Preference: Auditory. Demonstration. Mode of education provided: Demonstration. Explanation. Audience: Patient. Education Provided: Importance of activity. Mobility Techniques. Role of Physical Therapy. Safety. Treatment Plan. Response: Applied knowledge. Demonstrated skill independently. Indicates understanding. Needs practice/reinforcement. ASSESSMENT Low Complexity Evaluation: An examination of body system(s) using standardized tests and measures addressing 1-2 elements from any of the following: body structures and functions, activity limitations, and/or participation restrictions. Response to Evaluation: The session was tolerated fair, as evidenced by: Patient reported fatigue Pt drinking go lytely in preparation for colonoscopy, also has Hct of 27 Call little was in patient's reach at end of session. Pain: Yes, pain is unchanged from start of today's treatment. Other Rehabilitation Considerations: Patient's progress may be impaired by the following potential barriers: Medical condition. Support Structure: Support structure is good. Family member willing to assist patient. Pt reports his sister and parents are supportive, and that he could stay with his parents if needed Strengths: Independent premorbid function. Goals: Patient's functional goals: to go home The patient's therapy goals are based on limitations/impairments in the following areas: No impairments noted at this time. Short Term Goals: Not applicable. Baseline level impairments that do not require restorative therapy. Senior Energy Trader Goals: Not applicable. PLAN Treatment Frequency, Duration and Interventions: Physical Therapy services are discontinued at this time secondary to: Goals have been MET. No need for skilled therapy intervention at this time. Equipment Provided: None issued this visit. Equipment Recommended: None. Recommended Physical Therapy Follow Up: Upon acute care discharge, the following is currently recommended: Outpatient Physical Therapy. Pt will benefit from outpatient PT for back pain Recommended Consults: None currently. Development of Plan of Care: Participants included: Patient. Crown Blocker. Goal Review Visit Number: 1 Visit Number: Today's visit is number 1 Program: General Medicine (Therapist may be reached on [facility] [employer]) SESSION: Duration: 41 CHARGES: - 0 Units 64117 - CHARGE - PT EVAL; LOW COMPLEXITY 3 Units - GENERAL MEDICINE VISIT 1 Units - ORDER - PHYSICAL THERAPY CONSULT 1 Units Total treatment minutes: 41.00 Minutes Electronically Signed by: Nani Kelly PT, PT 07/17/2020 10:33:12 AM * Plan of Care - Nani Adame RN - 07/16/2020 9:09 PM EST Problem: Hemodynamic Status Goal: Patient will remain hemodynamically stable Description: Patient's vital signs, oxygenation, and labs will be monitored and deviations addressed. Outcome: Progressing Problem: Pain Goal: Pain is controlled to patient's desired goal Outcome: Progressing Problem: Fall Prevention Goal: No fall during Hospitalization Outcome: Progressing Problem: INJURY, RISK FOR Goal: Patient will not be injured from a fall during hospitalization Outcome: Progressing Problem: Knowledge Deficit Goal: Patient requires education regarding causes of high risk injury from a fal l Outcome: Progressing Goal: Patient's family requires education regarding causes of high risk injury f rom a fall Outcome: Progressing * Brief Op Note - Adrian Dejesus MD - 07/16/2020 6:37 PM EST Brief Procedure/Operative Note Date of operation/procedure: 07/15/2020 - 07/16/2020 Surgical Lo Pre-Op Diagnosis: Upper GI bleed Post-Op Diagnosis: Procedure(s): UPPER GI ENDOSCOPY WITH BIOPSY Surgeon(s): Adrian Dejesus MD Primary: Adrian Dejesus MD Anesthesia Type: MAC Anesthesiologist: Norm Thomason MD BINDING DYER: Izzy Hammer CRNA Procedure Start and End Times: For time of surgery refer to operative nursing te mplate. Est. Blood loss: None Blood Administered: none Fluids Given: See nursing notes Specimens Removed: Order Name Source Comment Collection Info Order Time SURGICAL PATHOLOGY EXAM ([facility] ONLY) 07/16/2020 6:31 PM Specimens and Anatomical Sites 1. DUODENUM 2. ANTHUM 3. G E JUNCTION Reason for Procedure Upper GI bleed Impression Normal duodenum mucosa with thickened fold at duodenum third portion /Duodenum b iopsy Bottle 1 Normal antrum mucosa Antrum biopsy Bottle 2 Irregular Z line GEJ Biopsy Bottle 3 No evidence of active or stigmata of recent GI bleeding Recommendations Clear liquid diet today Start Golytely prep for colonoscopy tomorrow am for further work up of anemia NPO after 3 am Adrian Dejesus MD Division of GI Advanced Endoscopy * Plan of Care - Monse Ross RN - 07/16/2020 2:50 AM EST Problem: Hemodynamic Status Goal: Patient will remain hemodynamically stable Description: Patient's vital signs, oxygenation, and labs will be monitored and deviations addressed. Outcome: Progressing Problem: Pain Goal: Pain is controlled to patient's desired goal Outcome: Progressing Problem: Fall Prevention Goal: No fall during Hospitalization Outcome: Progressing * Provider Notified - Monse Ross RN - 07/15/2020 11:52 PM EST 2335 Pt called out stated that he needed to use the urinal. When this poem writer ent ered the room pt stated that he felt light headed and shaky like he normally ojeda s when his sugars are low. Checked FS, which was 58. Hypoglycemia protocol initi ated. Pt given 25 mL of D50 (see MAR). Will recheck FS at 0000. notified . 2355 new order to increase D5NS to 100 mL/hr. See MAR for rate change. 0000 FS 130 with pt being asymptomatic at this time. Will continue via hypoglyce ruba protocol 0015 FS 98 and asymptomatic. will move to hourly FSx2 per protocol 0115 FS 95 pt asymptomatic. Will continue protocol. 0215 FS 91 pt asymptomatic. Protocol completed. Will return to every 4 hour FS w ith insulin coverage. * Plan of Care - Koki Benitez RN - 07/15/2020 10:35 PM EST Problem: Hemodynamic Status Goal: Patient will remain hemodynamically stable Description: Patient's vital signs, oxygenation, and labs will be monitored and deviations addressed. Outcome: Progressing Problem: Pain Goal: Pain is controlled to patient's desired goal Outcome: Progressing Problem: Fall Prevention Goal: No fall during Hospitalization Outcome: Progressing * Significant Event - Sajan Ramon MBBS - 07/15/2020 2:57 PM EST OSH Transfer Acceptance Note Hospital: [facility] Vitals: HR 80s, BP 98/74 HPI: 45 y/o with h/o alcoholism who presented 3 days ago with acute alcohol into xication, dehydration, hyponatremia, hypokalemia, and RAYMOND. RAYMOND has resolved and electrolyte derangements have been managed. His Hb has been down trending since presentation. 13.3 -> 9> 6.4 today. He has been having some coffee ground emesis and had a black tarry BM today. Hemodynamically stable. Given Protonix and octreotide. No h/o cirrhosis or varices. H/o paroxysmal Afib but not on anticoagulation. Aspirin 81 mg has been held during his hospital stay. Reason for transfer: GI evaluation for upper GI bleed Pertinent labs: Hb 6.4, RAYMOND has resolved. To Do: 2 large bore IVs, Protonix IV BID or PPi drip, consult GI, keep NPO. Stat CBC. Sajan Ramon MD Final Block Press Operatorlegal activity adjudicator Division of [facility] Medicine documented in this encounter Plan of Treatment Care Team Description Date Type Specialty Andres Garcia MD [address] [place] [address] [phone] 10/31/2020 Office Visit Gastroenterology Date/Time Name Type Priority Associated Diag noses 07/16/2020 6:32 PM EST Surgical Pathology Exam Pathology and Routine ([facility] Only) Cytology 07/17/2020 6:11 PM EST Surgical Pathology Exam Pathology and Routine ([facility] Only) Cytology Order Schedule Name Type Priority Associated Diag noses Once for 1 Occurrences starting 07/16/20 20 until 07/16/2020 Protime-INR Lab Routine Once for 1 Occurrences starting 07/16/20 20 until 07/16/2020 Surgical Pathology Exam Pathology and Routine ([facility] Only) Cytology Daily for 3 Days starting 07/17/2020 unt il 07/19/2020, 2 completed CBC Lab Routine Once for 1 Occurrences starting 07/17/20 20 until 07/17/2020 Surgical Pathology Exam Pathology and Routine ([facility] Only) Cytology 4X Daily (AC & HS) for 30 Days starting 07/17/2020 until 08/16/2020, 2 completed POCT glucose, docked Point of Care Routine Testing-Docked Device Order Schedule Name Type Priority Associated Diag noses Ordered: 07/18/2020 Referral to Outpatient Routine Acute GI bleedi Gastroenterology Referral Health Maintenance Due Date Last Done Comments MMR Vaccines ( - 1976 Standard series) Varicella Vaccines (1 of 1976 2 - 2-dose childhood series) Pneumococcal Vaccine: 1981 Pediatrics (0 to 5 Years) and At-Risk Patients (6 to 64 Years) (1 of 1 - PPSV23) DTaP,Tdap,and Td Vaccines 1982 (1 - Tdap) HIV Screening 1988 Diabetic Foot Exam 1993 Dilated Retinal Exam 1993 Urine Microalbumin 1993 Hepatitis B Vaccines (1 1994 of 3 - Risk 3-dose series) Lipid Disorder Screening 03/02/2013 03/02/2012 Hemoglobin A1c 01/12/2021 07/15/2020, 03/26/2019, 01/23/2016, Additional history exists Pneumococcal Vaccine: 65+ 2040 Years (1 of 1 - PPSV23) Influenza Vaccine Completed 07/17/2020, 05/23/2019, 07/07/2018, Additional history exists HIB Vaccines Aged Out No longer eligible based on patient's age to complete this topic Hepatitis A Vaccines Aged Out No longer eligibl e based on patient's age to complete this topic IPV Vaccines Aged Out No longer eligible based on patient's age to complete this topic documented as of this encounter Procedures Comments Procedure Name Priority Date/Time Associated Diag nosis POCT GLUCOSE, DOCKED Routine 07/18/2020 11:23 AM EST POCT GLUCOSE, DOCKED Routine 07/18/2020 8:11 AM EST TOTAL FE BINDING CAPACITY Routine 07/18/2020 7:57 AM EST FERRITIN LEVEL Routine 07/18/2020 7:57 AM EST CBC Routine 07/18/2020 5:15 AM EST POCT GLUCOSE, DOCKED Routine 07/17/2020 9:43 PM EST POCT GLUCOSE, DOCKED Routine 07/17/2020 6:25 PM EST COLONOSCOPY, FLEXIBLE, 07/17/2020 Gi bleed PROXIMAL TO SPLENIC 5:13 PM EST FLEXURE W/BX, SINGLE/MULTIPLE POCT GLUCOSE, DOCKED Routine 07/17/2020 4:09 PM EST POCT GLUCOSE, DOCKED Routine 07/17/2020 11:27 AM EST POCT GLUCOSE, DOCKED Routine 07/17/2020 7:33 AM EST CBC Routine 07/17/2020 4:27 AM EST POCT GLUCOSE, DOCKED Routine 07/17/2020 4:22 AM EST POCT GLUCOSE, DOCKED Routine 07/17/2020 12:11 AM EST COLONOSCOPY 07/17/2020 12:00 AM EST POCT GLUCOSE, DOCKED Routine 07/16/2020 8:19 PM EST POCT GLUCOSE, DOCKED Routine 07/16/2020 6:38 PM EST UPPER GI ENDOSCOPY; DX, 07/16/2020 Upper GI blee d W/WO SPECIMEN COLLECTION, 6:17 PM EST BRUSHING/WASHING (SEP PROC) POCT GLUCOSE, DOCKED Routine 07/16/2020 5:00 PM EST MR ABDOMEN WITH AND Routine 07/16/2020 WITHOUT CONTRAST [id number] 4:31 PM EST CANCER ANTIGEN 19-9 Routine 07/16/2020 12:21 PM EST AFP TUMOR MARKER Routine 07/16/2020 12:21 PM EST CBC STAT 07/16/2020 12:21 PM EST CEA Routine 07/16/2020 12:21 PM EST COMPREHENSIVE METABOLIC STAT 07/16/2020 PANEL 12:21 PM EST POCT GLUCOSE, DOCKED Routine 07/16/2020 11:46 AM EST POCT GLUCOSE, DOCKED Routine 07/16/2020 7:57 AM EST POCT GLUCOSE, DOCKED Routine 07/16/2020 4:11 AM EST POCT GLUCOSE, DOCKED Routine 07/16/2020 2:15 AM EST POCT GLUCOSE, DOCKED Routine 07/16/2020 1:16 AM EST POCT GLUCOSE, DOCKED Routine 07/16/2020 12:17 AM EST POCT GLUCOSE, DOCKED Routine 07/16/2020 12:01 AM EST UPPER GI ENDOSCOPY 07/16/2020 12:00 AM EST POCT GLUCOSE, DOCKED Routine 07/15/2020 11:36 PM EST CBC Routine 07/15/2020 9:06 PM EST HEMOGLOBIN A1C Routine 07/15/2020 9:06 PM EST COMPREHENSIVE METABOLIC Routine 07/15/2020 PANEL 9:06 PM EST POCT GLUCOSE, DOCKED Routine 07/15/2020 9:02 PM EST documented in this encounter Results * POCT glucose, docked (07/18/2020 11:23 AM EST) POC Glucose 412 (H) 70 - 140 mg/dL [facility] POC Specimen Whole Blood Performing Organization Address [facility] one Number POINT OF CARE TEST [address] [place] [address] [facility] POC [address] [place], [place] [address] 5 * POCT glucose, docked (07/18/2020 8:11 AM EST) POC Glucose 281 (H) 70 - 140 mg/dL [facility] POC Specimen Whole Blood Performing Organization Address [facility] one Number POINT OF CARE TEST [address] [place] [address] [facility] POC [address] [place], [place] [address] * Iron and TIBC (07/18/2020 7:57 AM EST) Iron 12 (L) 59 - 158 ug/dl [facility] at CG Transferrin 205 200 - 360 mg/dL [facility] Serum PATHOLOGY AT [facility] Total Fe Bind 285 228 - 428 ug/dl [facility] Cap PATHOLOGY AT [facility] % Fe Saturation 5.0 (L) 20 - 55 % [facility] PATHOLOGY AT [facility] Specimen Plasma Performing Organization Address City/State/Zipcode Ph one Number [facility] PATHOLOGY AT [address] [place] [address] [address] at CG * Ferritin Level (07/18/2020 7:57 AM EST) Ferritin 89 30 - 400 ng/ml [facility] at Specimen Plasma Performing Organization Address City/State/[facility] one Number [facility] PATHOLOGY AT [address] [place] [address] [phone] [address] at CG * CBC (07/18/2020 5:15 AM EST) White Blood 3.4 (L) 4 - 10 10*3/uL [facility] at Red Blood Cell 3.18 (L) 4.6 - 6.1 10*6/uL [facility] at Hemoglobin 9.1 (L) 13.5 - 18 g/dL [facility] at Hematocrit 27.4 (L) 41 - 53 % [facility] at Mean Cell 86.0 80 - 96 fL [facility] Volume [facility] at Mean Cell 28.4 27 - 33 pg [facility] Hemoglobin [facility] at Mean Cell Hgb 33.1 32.0 - 36.0 g/dL [facility] at Red Cell Dist 17.2 (H) 11.5 - 14.5 % [facility] Width [facility] at Platelet Count 229 150 - 400 10*3/uL [facility] at Specimen EDTA Whole Blood Performing Organization Address City/State/Zipcode Ph one Number [facility] PATHOLOGY AT [address] [place] [address] [phone] [address] at CG * POCT glucose, docked (07/17/2020 9:43 PM EST) POC Glucose 220 (H) 70 - 140 mg/dL [facility] POC Specimen Whole Blood Performing Organization Address City/State/Zipcode Ph one Number POINT OF CARE TEST [address] [place] [address] [facility] POC [address] [place], [place] [address] * POCT glucose, docked (07/17/2020 6:25 PM EST) POC Glucose 162 (H) 70 - 140 mg/dL [facility] POC Specimen Whole Blood Performing Organization Address [facility] one Number POINT OF CARE TEST [address] [place] [address] [facility] POC [address] [place], [place] [address] * POCT glucose, docked (07/17/2020 4:09 PM EST) POC Glucose 91 70 - 140 mg/dL [facility] POC Specimen Whole Blood Performing Organization Address [facility] one Number POINT OF CARE TEST [address] [place] [address] [facility] POC [address] [place], [place] [address] * POCT glucose, docked (07/17/2020 11:27 AM EST) POC Glucose 113 70 - 140 mg/dL [facility] POC Specimen Whole Blood Performing Organization Address [facility] one Number POINT OF CARE TEST [address] [place] [address] [facility] POC [address] [place], [place] [address] * POCT glucose, docked (07/17/2020 7:33 AM EST) POC Glucose 154 (H) 70 - 140 mg/dL [facility] POC Specimen Whole Blood Performing Organization Address [facility] one Number POINT OF CARE TEST [address] [place] [address] [facility] POC [address] [place], [place] [address] * CBC (07/17/2020 4:27 AM EST) White Blood 4.6 4 - 10 10*3/uL [facility] at CG Red Blood Cell 3.18 (L) 4.6 - 6.1 10*6/uL [facility] at CG Hemoglobin 8.9 (L) 13.5 - 18 g/dL [facility] at Hematocrit 27.2 (L) 41 - 53 % [facility] at Mean Cell 85.5 80 - 96 fL [facility] Volume [facility] at CG Mean Cell 28.1 27 - 33 pg [facility] at Mean Cell Hgb 32.9 32.0 - 36.0 g/dL [facility] at CG Red Cell Dist 16.8 (H) 11.5 - 14.5 % [facility] at CG Platelet Count 210 150 - 400 10*3/uL [facility] at CG Specimen EDTA Whole Blood Performing Organization Address [facility] one [facility] PATHOLOGY AT [address] [place] [address] [facility] [address] [address] at CG * POCT glucose, docked (07/17/2020 4:22 AM EST) POC Glucose 223 (H) 70 - 140 mg/dL [facility] POC Specimen Whole Blood Performing Organization Address [facility] one Number POINT OF CARE TEST [address] [place] [address] [facility] POC [address] [place], [place] [address] * POCT glucose, docked (07/17/2020 12:11 AM EST) POC Glucose 238 (H) 70 - 140 mg/dL [facility] POC Specimen Whole Blood Performing Organization Address [facility] one Number POINT OF CARE TEST [address] [place] [address] [facility] POC [address] [place], [place] [address] * POCT glucose, docked (07/16/2020 8:19 PM EST) POC Glucose 109 70 - 140 mg/dL [facility] POC Specimen Whole Blood Performing Organization Address [facility] one Number POINT OF CARE TEST [address] [place] [address] [facility] POC [address] [place], [place] [address] * POCT glucose, docked (07/16/2020 6:38 PM EST) POC Glucose 127 70 - 140 mg/dL [facility] POC Specimen Whole Blood Performing Organization Address [facility] one Number POINT OF CARE TEST [address] [place] [address] [facility] POC [address] [place], [place] [address] * POCT glucose, docked (07/16/2020 5:00 PM EST) POC Glucose 115 70 - 140 mg/dL [facility] POC Specimen Whole Blood Performing Organization Address City/State/Zipcode Ph one Number POINT OF CARE TEST [address] [place], [place] [address] [facility] POC [address] [place], [place] [address] * MR Abdomen with and without Contrast (07/16/2020 4:31 PM EST) Specimen Impressions Performed At IMPRESSION: [facility] RAD[facility] 1. Large heterogeneous collection that replaces the pancreatic parenchyma, similar in size to the study from 2013. This collection does not enhance and contains heterogeneous material suggest frances of the presence of blood. This may represent hemorrhage within a chronic p seudocyst. Superimposed infection is not excluded. 2. Hepatic steatosis and splenic varice s. 3. The common duct has an irregular con tour but is not dilated. The irregularity could be artifactual. There are no obvi ous filling defects. 4. Other nonacute findings as described above. Narrative Performed At [facility] RAD[facility] HISTORY: Possible pancreatic mass. Inci dentally, the patient does have a history of chronic pancreatitis as well as an a cute episode of pancreatitis in February 2020. TECHNIQUE: Multiplanar multisequence MR imaging of the abdomen was performed before and after the intravenous inject ion of 7.5 mL of Gadavist. The images were acquired and reconstructed accordi ng to the pancreatic mass and MRCP protocols. COMPARISON: Images from a CT abdomen pe lvis dated 12/08/2013. FINDINGS: LUNG BASES: There is a small left pleural effusion with compressive atelectasis. A trace right pleural effusion is also noted. LIVER: The liver parenchyma is homogeneous. T here is some loss of signal on the T1-weighted opposed phase sequence sugg estive of hepatic steatosis. There aren't no liver lesions. The liver contour is smooth. SPLEEN: The spleen is normal. GALLBLADDER AND BILIARY TREE: There are no filling defects identifie d within the gallbladder. The common duct is not dilated. It does appear somewhat irregular which may be artifactual. There are no obvious filling defects. T here is no intrahepatic biliary ductal dilatation. PANCREAS: Again noted is near complete replaceme nt of the pancreatic parenchyma with a heterogeneous nonenhancing collection. The collection is located in the expected location of the pancreatic body and daryl sures approximately 5.9 x 4.0 x 3.2 cm, slightly smaller than the prior study. This lesion currently has components that are T2 hyperintense/T1 hypointense as w ell as T1 hyperintense/T2 hypointense. There is no significant surrounding inf lammatory change. As mentioned above, there is no contrast enhancement. The p ancreatic duct is not well-visualized. ADRENAL GLANDS: There are no adrenal masses. KIDNEYS: The kidneys enhance symmetrically. The re is no hydronephrosis. There are no renal parenchymal lesions. BOWEL: The stomach is distended. There is a s mall hiatal hernia. The visualized loops of large and small bowel are otherwise unremarkable. LYMPH NODES: There is no lymphadenopathy. VASCULAR STRUCTURES: There is no aortic aneurysm. Again not ed are splenic varices which replace the splenic vein. The portal veins are costa nt. ABDOMINAL WALL: The abdominal wall soft tissues are un remarkable. FREE AIR OR FREE FLUID: There is no intra-abdominal free fluid . OSSEOUS STRUCTURES: There is no abnormal skeletal signal. Procedure Note Interface, Received Via [facility] - 07/16/2020 5:41 PM EST HISTORY: Possible pancreatic mass. Incidentally, the patient does have a history of chronic pancreatitis as well as an acute episode of pancreatitis in February 2020. TECHNIQUE: Multiplanar multisequence MR imaging of the abdomen was performed before and after the intravenous injection of 7.5 mL of Gadavist. The images were acquired and reconstructed according to the pancreatic mass and MRCP protocols. COMPARISON: Images from a CT abdomen pelvis dated 12/08/2013. FINDINGS: LUNG BASES: There is a small left pleural effusion with compressive atelectasis. A trace right pleural effusion is also noted. LIVER: The liver parenchyma is homogeneous. There is some loss of signal on the T1-weighted opposed phase sequence suggestive of hepatic steatosis. There aren't no liver lesions. The liver contour is smooth. SPLEEN: The spleen is normal. GALLBLADDER AND BILIARY TREE: There are no filling defects identified within the gallbladder. The common duct is not dilated. It does appear somewhat irregular which may be artifactual. There are no obvious filling defects. There is no intrahepatic biliary ductal dilatation. PANCREAS: Again noted is near complete replacement of the pancreatic parenchyma with a heterogeneous nonenhancing collection. The collection is located in the expected location of the pancreatic body and measures approximately 5.9 x 4.0 x 3.2 cm, slightly smaller than the prior study. This lesion currently has components that are T2 hyperintense/T1 hypointense as well as T1 hyperintense/T2 hypointense. There is no significant surrounding inflammatory change. As mentioned above, there is no contrast enhancement. The pancreatic duct is not well-visualized. ADRENAL GLANDS: There are no adrenal masses. KIDNEYS: The kidneys enhance symmetrically. There is no hydronephrosis. There are no renal parenchymal lesions. BOWEL: The stomach is distended. There is a small hiatal hernia. The visualized loops of large and small bowel are otherwise unremarkable. LYMPH NODES: There is no lymphadenopathy. VASCULAR STRUCTURES: There is no aortic aneurysm. Again noted are splenic varices which replace the splenic vein. The portal veins are patent. ABDOMINAL WALL: The abdominal wall soft tissues are unremarkable. FREE AIR OR FREE FLUID: There is no intra-abdominal free fluid. OSSEOUS STRUCTURES: There is no abnormal skeletal signal. IMPRESSION: 1. Large heterogeneous collection that r eplaces the pancreatic parenchyma, similar in size to the study from 2013. This collection does not enhance and contains heterogeneous material suggestive of the presence of blood. This may represent hemorrhage within a chronic pseudocyst. Superimposed infection is not excluded. 2. Hepatic steatosis and splenic varices . 3. The common duct has an irregular cont our but is not dilated. The irregularity could be artifactual. There are no obvious filling defects. 4. Other nonacute findings as described above. Performing Organization Address City/State/Zipcode Ph one Number [facility] [address] [place] [address] * Comprehensive Metabolic Panel (07/16/2020 12:21 PM EST) Albumin 2.8 (L) 3.5 - 5.2 g/dL [facility] at CG Bilirubin, 0.3 <1.2 mg/dL [facility] Total [facility] at CG Calcium 7.8 (L) 8.6 - 10.0 mg/dL [facility] at CG Chloride 107 98 - 107 mmol/L [facility] at Creatinine 0.75 0.70 - 1.20 mg/dL [facility] at CG Glucose 117 70 - 140 mg/dL [facility] at CG Alkaline 59 40 - 129 U/L [facility] at CG Potassium 3.8 3.4 - 5.1 mmol/L [facility] at Total Protein 4.5 (L) 6.4 - 8.3 g/dL [facility] at Sodium 135 (L) 136 - 145 mmol/L [facility] at AST/SGO 31 <40 U/L [facility] at Blood Urea 8 6 - 20 mg/dL [facility] at Osmolality, Singh 279 275 - 300 mosm/kg [facility] at BUN/Cre Ratio 11 [facility] at Bicarbonate 23 22 - 29 mmol/L [facility] at ALT/SGP 18 <41 U/L [facility] at Anion Gap 5 (L) 8 - 15 mmol/L [facility] at GFR Non >90 >60 mL/min/1.73m2 [facility] [address] [facility] at CDK-EPI GFR >90 >60 mL/min/1.73m2 [place] [address] [facility] at CKD-EPI Specimen Plasma Performing Organization Address [facility] Ph one Number [facility] PATHOLOGY AT [address] [place] [address] [address] [address] [address] at * CBC (07/16/2020 12:21 PM EST) White Blood 4.5 4 - 10 10*3/uL [facility] at Red Blood Cell 3.20 (L) 4.6 - 6.1 10*6/uL [facility] at Hemoglobin 8.9 (L) 13.5 - 18 g/dL [facility] at Hematocrit 27.0 (L) 41 - 53 % [facility] at Mean Cell 84.5 80 - 96 fL [facility] Volume [facility] at Mean Cell 27.8 27 - 33 pg [facility] Hemoglobin [facility] at Mean Cell Hgb 33.0 32.0 - 36.0 g/dL [facility] at Red Cell Dist 16.9 (H) 11.5 - 14.5 % [facility] at Platelet Count 178 150 - 400 10*3/uL [facility] at Specimen EDTA Whole Blood Performing Organization Address City/[facility] Ph one Number [facility] PATHOLOGY AT [address] [place] [address] [facility] [address] [place] [address] at CG * AFP tumor marker (07/16/2020 12:21 PM EST) Pathologist [facility] Alpha 1 <1 <9 ng/mL [facility] Fetoprotein CLINICAL PATHOLOGY Specimen Plasma Performing Organization [facility] one Number [facility] CLINICAL [address] [place], [place] [address] PATHOLOGY * Cancer antigen 19-9 (07/16/2020 12:21 PM EST) Pathologist [facility] CA 19-9 Serum 10 <35 U/mL [facility] Comment: CLINICAL This test uses [employer] CA 19-9 PATHOLOGY electrochemiluminescent immunoassay. Results obtained with different test methods or kits cannot be used interchangeably. CA 19-9 is useful in monitoring pancreatic, hepatobiliary, gastric, hepatocelllular, and colorectal cancer. CA 19-9 value regardless of level, should not be interpreted as absolute evidence of the presence or absence of malignant disease. Specimen Plasma Performing Organization [facility] one Number [facility] CLINICAL [address] [place], [place] [address] PATHOLOGY * CEA (07/16/2020 12:21 PM EST) [facility] CEA 6.3 (H) <3.4 ng/ml [facility] Comment: CLINICAL Levels of CEA should not be PATHOLOGY interpreted as absoulute evidence of the presence or absence of disease. It should not be used as a screening test for Cancer. CEA values obtained using different methodologies cannot be used interchangeably. This method is manufactured by [employer] and is an electrochemiluminesence immunoassay. Specimen Plasma Performing Organization [facility] one Number [facility] CLINICAL [address] [place], [place] [address] PATHOLOGY * POCT glucose, docked (07/16/2020 11:46 AM EST) Pathologist [facility] POC Glucose 106 70 - 140 mg/dL [facility] POC Specimen Whole Blood Performing Organization [facility] one Number POINT OF CARE TEST [address] [place] [address] [facility] POC [address] [place], [place] [address] * POCT glucose, docked (07/16/2020 7:57 AM EST) POC Glucose 108 70 - 140 mg/dL [facility] POC Specimen Whole Blood Performing Organization Address [facility] one Number POINT OF CARE TEST [address] [place] [address] [facility] POC [address] [place], [place] [address] * POCT glucose, docked (07/16/2020 4:11 AM EST) POC Glucose 82 70 - 140 mg/dL [facility] POC Specimen Whole Blood Performing Organization Address [facility] one Number POINT OF CARE TEST [address] [place] [address] [facility] POC [address] [place], [place] [address] * POCT glucose, docked (07/16/2020 2:15 AM EST) POC Glucose 91 70 - 140 mg/dL [facility] POC Specimen Whole Blood Performing Organization Address [facility] one Number POINT OF CARE TEST [address] [place] [address] [facility] POC [address] [place], [place] [address] * POCT glucose, docked (07/16/2020 1:16 AM EST) POC Glucose 95 70 - 140 mg/dL [facility] POC Specimen Whole Blood Performing Organization Address [facility] one Number POINT OF CARE TEST [address] [place] [address] [facility] POC [address] [place], [place] [address] * POCT glucose, docked (07/16/2020 12:17 AM EST) POC Glucose 98 70 - 140 mg/dL [facility] POC Specimen Whole Blood Performing Organization Address [facility] one Number POINT OF CARE TEST [address] [place] [address] [facility] POC [address] [place], [place] [address] * POCT glucose, docked (07/16/2020 12:01 AM EST) POC Glucose 130 70 - 140 mg/dL [facility] POC Specimen Whole Blood Performing Organization Address [facility] one Number POINT OF CARE TEST [address] [place] [address] [facility] POC [address] [place], [place] [address] * POCT glucose, docked (07/15/2020 11:36 PM EST) POC Glucose 58 (L) 70 - 140 mg/dL [facility] POC Specimen Whole Blood Performing Organization Address [facility] Ph one Number POINT OF CARE TEST [address] [place] [address] [facility] POC [address] [place] [address] * Hemoglobin A1c (07/15/2020 9:06 PM EST) Hemoglobin A1C 9.2 (H) 4.0 - 6.0 % [facility] at CG Estimated Avg 217 (H) <126 mg/dL [facility] at Specimen Whole Blood Performing Organization Address City/[facility] Ph one Number [facility] PATHOLOGY AT [address] [place] [address] [facility] [address] [place] [address] at CG * Comprehensive Metabolic Panel (07/15/2020 9:06 PM EST) Albumin 3.4 (L) 3.5 - 5.2 g/dL [facility] at Bilirubin, 1.2 (H) <1.2 mg/dL [facility] Total [facility] at CG Calcium 8.1 (L) 8.6 - 10.0 mg/dL [facility] at Chloride 102 98 - 107 mmol/L [facility] at Creatinine 0.62 (L) 0.70 - 1.20 mg/dL [facility] at Glucose 78 70 - 140 mg/dL [facility] at CG Alkaline 67 40 - 129 U/L [facility] Phosphatase [facility] at CG Potassium 3.6 3.4 - 5.1 mmol/L [facility] at Total Protein 5.2 (L) 6.4 - 8.3 g/dL [facility] at CG Sodium 132 (L) 136 - 145 mmol/L [facility] at AST/SGO 25 <40 U/L [facility] at Blood Urea 10 6 - 20 mg/dL [facility] at CG Osmolality, Singh 272 (L) 275 - 300 mosm/[facility] CG BUN/Cre Ratio 16 [facility] at Bicarbonate 23 22 - 29 mmol/L [facility] at ALT/SGP 16 <41 U/L [facility] at Anion Gap 7 (L) 8 - 15 mmol/L [facility] at GFR Non >90 >60 mL/min/1.73m2 [facility] [employer] [place] [address] [facility] [employer] at CDK-EPI CG GFR >90 >60 mL/min/1.73m2 [facility] [address] [facility] at CKD-EPI CG Specimen Plasma Performing Organization Address City/[facility] Ph one Number [facility] PATHOLOGY AT [address] [place] [address] [address] at CG * CBC (07/15/2020 9:06 PM EST) White Blood 5.0 4 - 10 10*3/uL [facility] at CG Red Blood Cell 3.51 (L) 4.6 - 6.1 10*6/uL [facility] [facility] at Hemoglobin 9.9 (L) 13.5 - 18 g/dL [facility] at Hematocrit 29.7 (L) 41 - 53 % [facility] at Mean Cell 84.6 80 - 96 fL [facility] Volume Medical [facility] at CG Mean Cell 28.2 27 - 33 pg [facility] Hemoglobin Medical [facility] at CG Mean Cell Hgb 33.4 32.0 - 36.0 g/dL [facility] at Red Cell Dist 16.8 (H) 11.5 - 14.5 % [facility] Width [facility] at Platelet Count 171 150 - 400 10*3/uL [facility] at Specimen EDTA Whole Blood Performing Organization Address City/State/[facility] one Number [facility] [place] [address] [place] [phone] [address] at CG * POCT glucose, docked (07/15/2020 9:02 PM EST) POC Glucose 71 70 - 140 mg/dL [facility] POC Specimen Whole Blood Performing Organization Address City/State/[facility] Ph one Number POINT OF CARE TEST [address] [place] [phone] [facility] POC [address] [facility] [place], [place] [address] 5 documented in this encounter Visit Diagnoses Diagnosis Acute GI bleeding - Primary Hemorrhage of gastrointestinal tract, u nspecified Alcohol abuse Alcohol abuse, unspecified Diabetes mellitus Type II or unspecified type diabetes me llitus without mention of complication, not stated as uncontrolled HTN (hypertension) Unspecified essential hypertension Pancreatic mass Unspecified disease of pancreas Vasovagal syncope Syncope and collapse Acute blood loss anemia Acute posthemorrhagic anemia Colon polyps Benign neoplasm of colon Type 2 diabetes mellitus, with long-ter m current use of insulin documented in this encounter Administered Medications Action Date Dose Rate Site Medication Order MAR Action 07/15/2020 11:48 PM EST 25 mLs dextrose 50 % IV solution 25 mL New Bag 25 mL, Intravenous, PRN, Other, blood glucose <55, Starting [place] 07/15/20 at 2024, For 30 days, Not for midline administration., 07/18/2020 9:34 AM EST 1 mg folic acid (FOLVITE) tablet 1 mg Given 1 mg, Oral, Daily Standard, First dose on Thu07/16/20 at 0900, For 30 days 1 mg Given 07/17/2020 8:44 AM EST 1 mg Given 07/16/2020 9:44 AM EST 07/18/2020 9:34 AM EST 600 mg gabapentin (NEURONTIN) capsule 600 mg Given 600 mg, Oral, Three Times Daily Standard, First dose on Thu07/15/20 at 2200, For 30 days 600 mg Given 07/17/2020 10:23 PM EST 600 mg Given 07/17/2020 4:12 PM EST glucagon (human recombinant) (GLUCAGEN) injection 1 mg 1 mg, Intramuscular, PRN, for glucose <55 without IV access, Starting [place] 07/15/20 at 2024, For 30 days glucose (GLUTOSE) 40 % oral gel 15 g 15 g, Oral, PRN, Low blood sugar, for gluose 55-69 mg/dl and able to take PO, Starting [place] 07/15/20 at 2024, For 30 days 07/17/2020 10:23 PM EST 10 Units insulin glargine (LANTUS) injection 10 Given Units 10 Units, Subcutaneous, Nightly, First dose (after last modification) on Thu07/17/20 at 2200, For 7 days, For blood glucose less than 70 mg/dL: follow hypoglycemia protocol (CM H) and notify provider. For blood glucose values between 70 mg/dL and 100 mg/dL a t bedtime: provide snack (15 grams of carbohydrates) with some protein. Administer FULL DOSE of insulin glargin e (LANTUS) after snack. Record snack in I&O's. For blood glucose more than 40 0 mg/dL: notify provider, 07/18/2020 11:37 AM EST 16 Units Abdomina l Tissue insulin lispro (HumaLOG) injection Given MEDIUM DOSE EATING INSULIN patients 1-1 6 Units 1-16 Units, Subcutaneous, Three Times Daily-With Meals, First dose on Thu07/18/20 at 1200, For 30 days, Nursing MUST open the 'SQ Insulin Dosing Charts ' Sidebar Report, or, the Patient Summary or Summary Report within the ED. , 07/18/2020 9:35 AM EST 2 patches Other lidocaine (LIDODERM) 5 % patch 2 patch Patch 2 patch, Transdermal, Every 24 hours Applied Standard (Daily), First dose on Thu07/16/20 at 1045, For 30 days, Apply to back pain 12 hours on - 12 hours off, Time to remove patch: 9:00 PM 2 patches Other Patch Applied 07/17/2020 8:45 AM EST 2 patches Other Patch Applied 07/16/2020 11:48 AM EST 07/18/2020 9:40 AM EST 50 mg metoprolol (LOPRESSOR) tablet 50 mg Given 50 mg, Oral, 2 Times Daily, First dose on Thu07/15/20 at 2200, For 30 days 50 mg Given 07/17/2020 10:23 PM EST 50 mg Given 07/17/2020 8:44 AM EST 07/16/2020 9:55 AM EST 2 mg morphine sulfate (PF) injection 2 mg New Bag 2 mg, Intravenous, Every 4 hours PRN, Severe Pain (Pain Scale Score 7-10), Starting Thu07/15/20 at 2019, For 3 day s 2 mg New Bag 07/16/2020 2:21 AM EST 2 mg New Bag 07/15/2020 9:21 PM EST 07/18/2020 6:46 AM EST 5 mg oxyCODONE (ROXICODONE) immediate release Given tablet 5 mg 5 mg, Oral, Every 4 hours PRN, Moderate Pain (Pain Scale Score 4-6), Starting Thu07/16/20 at 1033, For 3 days, Oxycodone immediate release is limited to 10 mg per dose. Higher doses ( only) require Pain Service consultation and approval., 5 mg Given 07/18/2020 2:01 AM EST 5 mg Given 07/17/2020 7:37 PM EST 07/18/2020 9:34 AM EST 40 mg pantoprazole (PROTONIX) EC tablet 40 mg Given 40 mg, Oral, Daily Standard, First dos e on Thu07/18/20 at 0900, For 30 days, D o not crush or chew, 07/18/2020 9:34 AM EST 5 mg ramipril (ALTACE) capsule 5 mg Given 5 mg, Oral, Daily Standard, First dose on Thu07/16/20 at 0900, For 30 days, Check vital signs before administering, 5 mg Given 07/17/2020 8:44 AM EST 5 mg Given 07/16/2020 9:44 AM EST 07/18/2020 9:34 AM EST 100 mg thiamine (B-1) tablet 100 mg Given 100 mg, Oral, Daily Standard, First dose on Thu07/16/20 at 0900, For 30 day s 100 mg Given 07/17/2020 8:44 AM EST 100 mg Given 07/16/2020 9:44 AM EST Action Date Dose Rate Site Medication Order MAR Action 07/18/2020 10:40 AM EST 10 mg cyclobenzaprine (FLEXERIL) tablet 10 mg Given 10 mg, Oral, Once, Thu07/18/20 at 0930 , For 1 dose 07/18/2020 5:25 AM EST 100 mL/hr dextrose 5 %-0.9 % sodium chloride New Bag infusion at 100 mL/hr, Intravenous, Continuous, Starting 07/15/20 at 2030, For 30 days 100 mL/hr Restarted - All Meds 07/17/2020 6:52 PM EST 500 mLs Given 07/17/2020 5:55 PM EST 07/18/2020 10:41 AM EST 2 g Diclofenac Sodium (VOLTAREN) 1 % gel 2 g Given 2 g, Topical, Once, Thu07/18/20 at 0930, For 1 dose, Apply to mid back where it hurts, 07/17/2020 1:52 PM EST 0.5 mLs Left Del toid influenza vac split quad (FLUARIX) Given injection 6 months and older 0.5 mL 0.5 mL, Intramuscular, Give Now, Starting Thu07/15/20 at 1931, For 1 dos e 07/16/2020 8:20 PM EST 10 Units insulin glargine (LANTUS) injection 10 Given Units 10 Units, Subcutaneous, 2 Times Daily, First dose (after last modification) on Thu07/16/20 at 2100, For 58 doses, For blood glucose less than 70 mg/dL: follo w hypoglycemia protocol ( ) and notify provider. For blood glucose values between 70 mg/dL and 100 mg/dL a t bedtime: provide snack (15 grams of carbohydrates) with some protein. Administer FULL DOSE of insulin glargin e (LANTUS) after snack. Record snack in I&O's. For blood glucose more than 40 0 mg/dL: notify provider, 07/17/2020 4:47 AM EST 1 Units insulin lispro (HUMALOG) injection LOW Given DOSE NPO INSULIN patients 1-5 Units 1-5 Units, Subcutaneous, Every 4 hours, First dose on Thu07/15/20 at 2030, For 30 days, Nursing MUST open th e 'SQ Insulin Dosing Charts' Sidebar Report, or, the Patient Summary or Summary Report within the ED. , 1 Units Given 07/17/2020 12:31 AM EST 07/16/2020 5:47 AM EST 1 mg morphine sulfate (PF) injection 1 mg New Bag 1 mg, Intravenous, Once, Thu07/16/20 at 0600, For 1 dose 07/17/2020 4:29 AM EST 50 mcg/hr 10 mL/hr octreotide (SANDOSTATIN) 5 mcg/mL in New Bag sodium chloride 0.9 % 250 mL infusion 50 mcg/hr (10 mL/hr), Intravenous, at 1 0 mL/hr, Continuous, Starting 07/15/20 at 2100, For 30 days 50 mcg/hr 10 mL/hr New Bag 07/15/2020 10:21 PM EST 07/17/2020 8:49 AM EST 8 mg/hr 20 mL/hr pantoprazole (PROTONIX) 0.4 mg/mL in New Bag sodium chloride 0.9 % 250 mL infusion 8 mg/hr (20 mL/hr), Intravenous, at 20 mL/hr, Continuous, Starting [place] 07/15/20 at 2100, For 30 days, Indication: Activ e GI bleed 8 mg/hr 20 mL/hr New Bag 07/16/2020 12:23 PM EST 8 mg/hr 20 mL/hr New Bag 07/15/2020 10:25 PM EST 07/15/2020 9:21 PM EST 80 mg pantoprazole (PROTONIX) injection 80 mg New Bag 80 mg, Intravenous, Once, 07/15/20 a t 2100, For 1 dose 07/16/2020 10:01 PM EST 4,000 mLs polyethylene glycol (GoLYTELY,NuLYTELY) Given suspension 4,000 mL 4,000 mL, Oral, Once, 07/16/20 at 2100, For 1 dose documented in this encounter
--- OUTSIDE RECORDS SUMMARY | 2020-10-05 14:12 | CCD | Continuity of Care Document ---
Author Author Camilo FUENTES MD Organization Unknown Address [address] [place] [id number] Phone [phone] Care Team Providers Care Produce Associate Name Role Phone Mark Velez DO AUTM [phone] Problems Description No Information Available Social History [...] Available Procedures Date Code Description Status 08/08/2020 48158 X-Ray Spine Thoracolumbar Ap & L ateral 2 Views Completed Medical Devices Description No Information Available Encounters Type Date Location Provider Dx Diagnosis Office Visit 08/08/2020 8:00a [place] Balta Fuentes MD S22.080A Wedge compression fracture [...] * Urine Protein Electrophoresis, Ordered: 08/08/20 * New Xrays:* MRI Thoracic Spine With & Without Shahbaz, Ordered: 08/08/20 * Follow up:* with thoracic MRI results with [facility] in [place] per [facility] * F17.210 Nicotine dependence, cigarettes, uncomplicated Functional Status Description No Information Available Mental Status Description No Information Available Referrals Description No Information Available
--- OUTSIDE RECORDS SUMMARY | 2020-10-05 14:12 | CCD | Continuity of Care Document ---
Author Author [facility] Address [address] [place] [address] Phone Support Name Relationship Address [place] [address] [employer]ustinMark [employer] [address] [place] [address] Adan Garza [employer] [address] [place] [address] Allergies, Adverse Reactions, Alerts No known allergies. Medications Medication Status Dose Units Route Directions Qty Days Start Date End Date Instructions Insulin Aspart U-100 (Novolog Penfill U- 100 Insulin) 100 unit/mL cartridge Discontinued 1 sliding s marcellus dose SQ Use as Directed February 21, 2020 1:48pm February 21, 2020 2:21pm Aspirin (Aspir-81) 81 mg tablet,delayed release (DR/EC ) Discontinued 81 MG PO Once Per Day 30 February 21, 2020 2:16pm May 1:17pm Atorvastatin Discontinued 80 MG PO daily 30 February 21, 2020 2:16pm May 28, 2020 1:17pm Blood Sugar Diagnostic (Ge100 Blood Glucose Test Strip ) strip Discontinued 1 EACH MC Four Times a Day February 21, 2020 2:16pm May 1:17pm test blood sugar four times daily: fasti ng and pre-parandial Folic Acid Discontinued 1 MG PO Once Per Day 30 February 21, 2020 2:17pm May 28, 2020 1:17pm Insulin Aspart U-100 (Novolog Penfill U- 100 Insulin) 100 unit/mL cartridge Discontinued 1 sliding s marcellus dose SQ Use as Directed February 21, 2020 2:17pm February 22, 2020 3:51pm Insulin Glargine (Lantus Solostar U-100 Insulin) 100 unit/mL (3 mL) insulin pen Discontinued 64 UNIT SQ 2 Times Per Day 3 February 21, 2020 2:18pm March 06, 2020 1:12pm Take 32U in the morning and 32U at night . Metoprolol Tartrate Discontinued 100 MG PO 2 Times Per Day 60 February 21, 2020 2:1 8pm May 28, 2020 1:17pm Pantoprazole Discontinued 40 MG PO Once Per Day 30 February 21, 2020 2:18pm May 28, 2020 1:17pm Pen Needle, Diabetic Discontinued 1 EACH MC Three times a da y 100 February 21, 2020 2: 19pm May 28, 2020 1:17pm use one needle four times daily with insulin injection Thiamine Hcl (Vitamin B1) Discontinued 100 MG PO Once Per Day 90 February 21, 2020 2:2 0pm May 28, 2020 1:17pm Ramipril Discontinued 5 MG PO daily 30 February 21, 2020 2:23pm March 06, 2020 1:13pm Insulin Lispro (Admelog U-100 Insulin Li spro) 100 unit/mL solution Discontinued 1 sliding s marcellus dose SQ Use as Directed February 24, 2020 9:09am May 28, 2020 1:17pm Sliding scale pre-parandial Insulin Syr/Ndl U100 Half Hiram (Bd Insul in Syringe Half Unit) 0.3 mL 31 gauge x 5/16" syringe Discontinued 0 .ROUTE .MEDSUPPLY 100 February 24, 2020 9:11am May 28, 2020 1:17pm one syring per dose, as directed Insulin Glargine (Basaglar Kwikpen U-100 Insulin) 100 unit/mL (3 mL) insulin pen Discontinued 35 UNIT SQ 2 Times Per Day February 24, 2020 9:13am March 08, 2020 6:15am Gabapentin Discontinued 400 MG PO Three times a day March 06, 2020 1:29pm May 28, 2020 1:17pm Insulin Glargine (Basaglar Kwikpen U-100 Insulin) 100 unit/mL (3 mL) insulin pen Discontinued 35 UNIT SQ Every Morning March 08, 2020 6:13am May 28, 2020 12:18pm Insulin Glargine (Basaglar Kwikpen U-100 Insulin) 100 unit/mL (3 mL) insulin pen Discontinued 45 UNIT SQ Every Evening March 08, 2020 6:15am May 28, 2020 12:19pm Insulin Glargine (Lantus Solostar U-100 Insulin) 100 unit/mL (3 mL) insulin pen Discontinued 32 UNIT SQ 2 Times Per Day May 28, 2020 12:18pm May 28, 2020 1:17pm Aspirin Active 81 MG PO Once Per Day May 28, 2020 1:12pm Atorvastatin Active 80 MG PO daily May 28, 2020 1:12pm Blood Sugar Diagnostic (Ge100 Blood Glucose Test Strip ) strip Active 1 EACH MC Four Times a Day 150 May 28, 2020 1:13pm test blood sugar four times daily: fasting and pre-parandial Folic Acid Active 1 MG PO Once Per Day May 28, 2020 1:13pm Gabapentin Active 600 MG PO Three times a day 120 May 28, 2020 1:13pm Insulin Syr/Ndl U100 Half Hiram (Bd Insul in Syringe Half Unit) 0.3 mL 31 gauge x 5/16" syringe Active 0 .ROUTE .MEDSUPPLY 100 May 28, 2020 1:14pm one syring per dose, as directed Insulin Glargine (Lantus Solostar U-100 Insulin) 100 unit/mL (3 mL) insulin pen Discontinued 32 UNIT SQ 2 Times Per Day May 28, 2020 1:14pm May 28, 2020 3:45pm Insulin Lispro (Admelog U-100 Insulin Li spro) 100 unit/mL solution Active 1 sliding scale d ose SQ Use as Directed May 28, 2020 1:16pm Sliding scale pre-parandial Metoprolol Tartrate Active 100 MG PO 2 Times Per Day 60 May 28, 2020 1:16pm Pantoprazole Active 40 MG PO Once Per Day May 28, 2020 1:16pm Pen Needle, Diabetic Discontinued 1 EACH MC Three times a da y May 28 1:17pm July 14, 2020 12:15am use one n eedle four times daily with insulin injection Thiamine Hcl (Vitamin B1) Active 100 MG PO Once Per Day May 28 0 1:17pm Insulin Glargine (Basaglar Kwikpen U-100 Insulin) 100 unit/mL (3 mL) insulin pen Discontinued 32 UNIT SQ 2 Times Per Day May 28, 2020 3:45pm July 20, 2020 7:03am Pqkavk-Aosrxkgj-Mkdpdoo (Creon) 12,000-3 8,000 -60,000 unit capsule,delayed release(DR/EC) Discontinued 1 CAP PO Three times a day November 18, 2017 9:0 6am February 21, 2020 1:46pm Insulin Glargine (Lantus U-100 Insulin) 100 UNITS/ML s olution Discontinued 35 UNITS SC Every Morning November 20, 2017 8:10am October 4:07pm Insulin Glargine (Lantus Solostar U-100 Insulin) 100 UNIT/1 ML insulin pen Discontinued 32 UNIT SQ At Bedtime November 20, 2017 8:13am January 18 10:46am Pen Needle, Diabetic Active 1 EACH MC Three times a da y July 14, 2020 1 2:15am use one needle four times da macarena with insulin injection Ramipril Active 5 MG PO Once Per Day July 14, 2020 12:15am Clonidine Hcl Discontinued 0.1 MG PO 2 Times Per Day March 25, 2012 3:43pm September 28, 2012 8:19am Metoprolol Tartrate Discontinued 50 MG PO 2 Times Per Day March 25, 2012 3:4 3pm September 28, 2012 8:19am Pantoprazole Discontinued 40 MG PO Once Per Day March 25, 2012 3:43pm June 21, 2012 12:23pm Folic Acid Discontinued 1 MG PO Once Per Day March 25, 2012 3:43pm March 31, 2013 9:52am Multivit With Lko-Zj-Zcuzecvv (One Daily For Men) 0.4-600 mg-mcg tablet Discontinued 1 EACH PO Once Per Day March 25, 2012 3:43pm March 31 9:52am Insulin Glargine,Hum.rec.anlog (Lantus Solostar) Discontinued 24 U SQ Every night at bedtime March 25, 2012 3:43pm April 29, 2012 8:06am Insulin Aspart (Novolog) Discontinued 2 U SQ Three times a day April 05, 2012 8:57 am March 31, 2013 9:52am Insulin Glargine,Hum.rec.anlog (Lantus Solostar) Discontinued 48 U SQ Every night at bedtime April 29, 2012 8:06am March 31, 2013 9:52am Pantoprazole Discontinued 40 MG PO Once Per Day June 21, 2012 12:23pm March 31, 2013 9:52am Azithromycin Discontinued 250 MG PO Once Per Day 6 July 08, 2012 3:18pm August 25, 2012 9:24am Clonidine Hcl Discontinued 0.1 MG PO 2 Times Per Day 60 September 28, 2012 8:19am March 31, 2013 9:52am Metoprolol Tartrate Discontinued 50 MG PO 2 Times Per Day 30 September 28, 2012 8:19am March 31, 2013 9:52am Acamprosate (Campral) 333 mg tablet,delayed release (D R/EC) Discontinued 666 MG PO Three times a day 180 September 30, 2012 8:59am March 31, 2013 9:59am Clonidine Hcl Discontinued 0.1 MG PO 2 Times Per Day 60 March 31, 2013 9:52am November 18, 2013 11:08am Metoprolol Tartrate Discontinued 50 MG PO 2 Times Per Day 30 March 31, 2013 9:5 2am November 18, 2013 11:08am Pantoprazole Discontinued 40 MG PO Once Per Day 30 March 31, 2013 9:52am November 04, 2013 9:06am Folic Acid Discontinued 1 MG PO Once Per Day 30 March 31, 2013 9:52am November 18, 2013 11:08am Multivit With Nhd-Fi-Aiskxahj (One Daily For Men) 0.4-600 mg-mcg tablet Active 1 EACH PO Once Per Day 30 March 31, 2013 9:52am Insulin Aspart (Novolog) Discontinued 2 U SQ Three times a day 5 March 31, 2013 9:52 am November 18, 2013 11:08am Insulin Glargine,Hum.rec.anlog (Lantus Solostar) Discontinued 54 U SQ Every night at bedtime 5 March 31, 2013 9:52am November 18, 014 11:08am Blood Sugar Diagnostic (Onetouch Ultra Test) strip Discontinued 1 STRIP TD Four Times a Day 120 May 18, 2013 8:00am November 182013 11:08am INFLUENZA VIRUS VACCINE (FLUVIRIN 2012- (5 ML VIAL)) Discontinued 0.5 MILLILITRE IM ONE TIME 1 July 08, 2013 8:02am July 082012 9:18am Pantoprazole Discontinued 40 MG PO Once Per Day 30 November 04, 2013 9:06am November 18, 2013 11:08am Clonidine Hcl Discontinued 0.1 MG PO 2 Times Per Day 60 November 18, 2013 11:08am December 07, 2014 2:59pm Metoprolol Tartrate Discontinued 50 MG PO 2 Times Per Day 30 November 18, 2013 11 :08am December 07, 2014 2:59pm Blood Sugar Diagnostic (One Touch Ultra Test Strips) 1 EACH strip Discontinued 1 EACH MC Once Per Day 120 November 18, 2013 11:08am October 292015 9:07am Pantoprazole Discontinued 40 MG PO Once Per Day 30 November 18, 2013 11:08am August 04, 2014 9:49am Folic Acid Discontinued 1 MG PO Once Per Day 30 November 18, 2013 11:08am September 01, 2014 3:23pm Insulin Aspart U-100 (Novolog Flexpen) 1 00 UNIT/1 ML insulin pen Discontinued 2 UNIT SQ Three times a day 5 November 18, 2013 11:08am November 28, 2014 10:37am Insulin Glargine (Lantus Solostar) 100 UNIT/1 ML insul in pen Discontinued 54 UNIT SQ At Bedtime 5 November 18, 2013 11:08am November 28, 2014 10:32am Pen Needle, Diabetic (Pen Needle) 1 EACH needle Discontinued 1 EACH MC Three times a day 100 March 27, 2014 3:39pm April 30, 2015 1:58pm CAMPRAL Discontinued 333 MG PO 2 Times Per Day 60 May 09, 2014 10:28am May 28, 2015 8:10am Pantoprazole Discontinued 40 MG PO Once Per Day 30 August 04, 2014 9:49am February 28, 2015 8:48am Folic Acid Discontinued 1 MG PO Once Per Day September 01, 2014 3:23pm March 15, 2015 10:06am Insulin Glargine (Lantus Solostar) 100 UNIT/1 ML insul in pen Discontinued 54 UNIT SQ At Bedtime 6 November 28, 2014 10:32am February 28, 2015 8:50am Insulin Aspart U-100 (Novolog Flexpen) 1 00 UNIT/1 ML insulin pen Discontinued 10 UNIT SQ Three times a day 3 November 28, 2014 10:37am December 03, 2015 7:45am Pravastatin Discontinued 20 MG PO Once Per Day November 28, 2014 10:38am February 28, 2015 8:48am Ramipril Discontinued 1 CAP PO Once Per Day November 28, 2014 10:40am April 09, 2015 9:18am Aspirin (Aspir-81) 81 MG tablet,delayed release (DR/EC ) Discontinued 81 MG PO Once Per Day November 28, 2014 10:45am January 05 4:41am Aspirin (Aspir-81) 81 MG tablet,delayed release (DR/EC ) Discontinued 81 MG PO Once Per Day November 28, 2014 10:45am July 7:55am Clonidine Hcl Discontinued 0.1 MG PO 2 Times Per Day December 07, 2014 2:59pm February 06, 2016 7:48am Metoprolol Tartrate Discontinued 50 MG PO 2 Times Per Day December 07, 2014 2:5 9pm November 13, 2015 8:05am Pantoprazole Discontinued 40 MG PO Once Per Day February 28, 2015 8:48am June 13, 2015 10:44am Pravastatin Discontinued 20 MG PO Once Per Day February 28, 2015 8:48am March 21, 2015 7:09am Insulin Glargine (Lantus Solostar) 100 UNIT/1 ML insul in pen Discontinued 60 UNIT SQ At Bedtime February 28, 2015 8:50am May 07, 2015 10:15am Folic Acid Discontinued 1 MG PO Once Per Day March 15, 2015 10:06am April 09, 2015 9:18am Pravastatin Discontinued 20 MG PO Once Per Day March 21, 2015 7:09am July 16, 2015 11:42am Ramipril Discontinued 1 CAP PO Once Per Day April 09, 2015 9:18am December 17, 2015 8:00am Folic Acid Discontinued 1 MG PO Once Per Day April 09, 2015 9:18am January 21, 2016 8:17am Pen Needle, Diabetic (Pen Needle) 1 EACH needle Discontinued 1 EACH MC Three times a day April 30, 2015 1:58pm January 18, 2018 10:46am Insulin Glargine (Lantus Solostar) 100 UNIT/1 ML insul in pen Discontinued 60 UNIT SQ At Bedtime May 07, 2015 10:15am May 28, 2015 8:09am Insulin Glargine (Lantus Solostar) 100 UNIT/1 ML insul in pen Discontinued 56 UNIT SQ At Bedtime May 28, 2015 8:09am June 11, 2015 3:44pm Insulin Glargine (Lantus Solostar) 100 UNIT/1 ML insul in pen Discontinued 56 UNIT SQ At Bedtime June 11, 2015 3:44pm October 9:43am Pantoprazole Discontinued 40 MG PO Once Per Day June 13, 2015 10:44am October 11, 2015 3:47pm Pravastatin Discontinued 20 MG PO Once Per Day July 16, 2015 11:42am August 05, 2015 3:59pm Pravastatin Discontinued 20 MG PO Once Per Day August 05, 2015 3:59pm September 14, 2015 11:25am Pravastatin Discontinued 20 MG PO Once Per Day September 14, 2015 11:25am October 29, 2015 8:49am Pantoprazole Discontinued 40 MG PO Once Per Day October 11, 2015 3:47pm January 14, 2016 7:16am Insulin Glargine (Lantus Solostar) 100 UNIT/1 ML insul in pen Discontinued 56 UNIT SQ At Bedtime October 16, 2015 9:43am February 28, 2016 6:50am Pravastatin Discontinued 20 MG PO Once Per Day October 29, 2015 8:49am January 01, 2017 10:06am Blood Sugar Diagnostic (Ge100 Blood Gluc ose Test Strip) 1 EACH strip Discontinued 1 EACH MC Three times a day October 29, 2015 9:07am June 112015 7:24am Metoprolol Tartrate Discontinued 50 MG PO 2 Times Per Day November 13, 2015 8:0 5am January 01, 2017 10:06am Insulin Aspart U-100 (Novolog Flexpen) 1 00 UNIT/1 ML insulin pen Discontinued 10 UNIT SQ Three times a day December 03, 2015 7:45am April 11, 2016 7:13am Naltrexone Discontinued 50 MG PO Once Per Day December 10, 2015 3:54pm January 14, 2016 7:16am Ramipril Discontinued 1 CAP PO Once Per Day December 17, 2015 8:00am January 01, 2017 10:06am Naltrexone Discontinued 50 MG PO Once Per Day January 14, 2016 7:16am 2015 6:44am Pantoprazole Discontinued 40 MG PO Once Per Day January 14, 2016 7:16am May 13, 2016 8:51am Folic Acid Discontinued 1 MG PO Once Per Day January 21, 2016 8:17am May 18, 2017 9:11am Clonidine Hcl Discontinued 0.1 MG PO 2 Times Per Day February 06, 2016 7:47am May 18, 2017 9:11am Naltrexone Discontinued 50 MG PO Once Per Day 30 February 20, 2016 6:44am 2016 7:39am Insulin Glargine (Lantus Solostar) 100 UNIT/1 ML insul in pen Discontinued 56 UNIT SQ At Bedtime February 28, 2016 6:50am January 01, 2 017 10:06am Naltrexone Discontinued 50 MG PO Once Per Day 2016 7:39am January 01, 2017 10:06am Insulin Aspart U-100 (Novolog Flexpen) 1 00 UNIT/1 ML insulin pen Discontinued 10 UNIT SQ Three times a day 3 April 11, 2016 7:13am December 09, 017 10:03am Pantoprazole Discontinued 40 MG PO Once Per Day May 13, 2016 8:51am January 01, 2017 10:06am Blood Sugar Diagnostic (Ge100 Blood Gluc ose Test Strip) 1 EACH strip Discontinued 1 EACH MC Three times a day 100 June 11, 2016 7:24am January 01, 2017 10:06am Insulin Aspart U-100 (Novolog Flexpen) 1 00 UNIT/1 ML insulin pen Discontinued 10 UNIT SQ Three times a day 3 December 09, 2016 10:03am January 01, 2017 10:06am Metoprolol Tartrate Discontinued 50 MG PO 2 Times Per Day January 01, 2017 10 :06am September 22, 2017 8:46am Blood Sugar Diagnostic (Ge100 Blood Gluc ose Test Strip) 1 EACH strip Discontinued 1 EACH MC Three times a day 100 January 01, 2017 10:06am January 02, 2017 7:01am Pantoprazole Discontinued 40 MG PO Once Per Day 30 January 01, 2017 10:06am February 12, 2017 8:33am Ramipril Discontinued 1 CAP PO Once Per Day January 01, 2017 10:06am July 02, 2017 6:48am Pravastatin Discontinued 20 MG PO Once Per Day January 01, 2017 10:06am July 02, 2017 6:48am Insulin Aspart U-100 (Novolog Flexpen) 1 00 UNIT/1 ML insulin pen Discontinued 10 UNIT SQ Three times a day 2 January 01, 2017 10:06am March 20, 2017 8:07am Insulin Glargine (Lantus Solostar) 100 UNIT/1 ML insul in pen Discontinued 56 UNIT SQ At Bedtime 2 January 01, 2017 10:06am March 05, 2017 8:35am Blood Sugar Diagnostic (Accu-Chek Agnieszka Plus) 1 EACH s trip Discontinued 1 EACH MC Three times a day 100 January 02, 2017 7:01am February 12 8:33am Thiamine Hcl (Vitamin B1) Discontinued 100 MG PO Once Per Day January 16, 2017 8:16a m February 21, 2020 2:21pm Insulin Syringe-Needle U-100 Discontinued 1 EACH IJ Once Per Day 1 January 16, 2017 8:18a m October 25, 2018 4:07pm Blood Sugar Diagnostic (Accu-Chek Agnieszka Plus) 1 EACH s trip Discontinued 1 EACH MC Four Times a Day 150 February 12, 2017 8:33am March 20 7 8:07am Pantoprazole Discontinued 40 MG PO Once Per Day 30 February 12, 2017 8:33am August 25, 2017 8:19am Lancets (Softclix) 1 EACH misc Discontinue d 1 EACH MC Four Times a Day 150 February 18, 2017 7:11am October 19, 2017 9:32am Insulin Glargine (Lantus Solostar) 100 UNIT/1 ML insul in pen Discontinued 50 UNIT SQ At Bedtime 2 March 05, 2017 8:35am August 10:17am Dapagliflozin (Farxiga) 5 MG tablet Discontinued 5 MG PO On ce Per Day March 05, 2017 8:35 am April 05, 2018 1:14pm Blood Sugar Diagnostic (Accu-Chek Agnieszka Plus) 1 EACH s trip Discontinued 1 EACH MC Four Times a Day 150 March 20, 2017 8:07am July 02, 2017 6:48am Insulin Aspart U-100 (Novolog Flexpen) 1 00 UNIT/1 ML insulin pen Discontinued 10 UNIT SQ Three times a day 2 March 20, 2017 8:07am May 9:23am Ooumvm-Bslgfemd-Zpzvoqn (Creon) 1 EACH c apsule,delayed release(DR/EC) Discontinued 1 TAB PO Once Per Day 120 40 March 26, 2017 2:40pm October 4:06pm Clonidine Hcl Discontinued 0.1 MG PO 2 Times Per Day 60 May 18, 2017 9:11am October 16, 2017 10:23am Folic Acid Discontinued 1 MG PO Once Per Day 30 May 18, 2017 9:11am October 16, 2017 10:23am Insulin Aspart U-100 (Novolog Flexpen U- 100 Insulin) 100 UNIT/1 ML insulin pen Discontinued 10 UNIT SQ Three times a day 2 May 18, 2017 9:23am January 18, 2018 10:46am Metformin Discontinued 1 TAB PO 2 Times Per Day 180 June 04, 2017 3:46pm April 05, 2018 1:14pm Blood Sugar Diagnostic (Accu-Chek Agnieszka Plus) 1 EACH s trip Discontinued 1 EACH MC Four Times a Day 150 July 02, 2017 6:48am October 082017 9:29am Ramipril Discontinued 1 CAP PO Once Per Day 30 July 02, 2017 6:48am October 16, 2017 10:23am Pravastatin Discontinued 20 MG PO Once Per Day 30 July 02, 2017 6:48am October 16, 2017 10:23am Naltrexone Discontinued 50 MG PO Once Per Day 90 July 02, 2017 6:50am October 16, 2017 10:23am Pantoprazole Discontinued 40 MG PO Once Per Day 30 August 25, 2017 8:19am October 16, 2017 10:23am Insulin Glargine (Lantus Solostar) 100 UNIT/1 ML insul in pen Discontinued 50 UNIT SQ At Bedtime 2 September 04, 2017 10:17am November 202017 8:13am Metoprolol Tartrate Discontinued 50 MG PO 2 Times Per Day 30 September 22, 2017 8:46am October 16, 2017 10:23am Blood-Glucose Meter, Drum-Type (Accu-Nguyen k Compact Plus Care) 1 EACH kit Discontinued 1 EACH MC Four Times a Day 1 October 16, 2017 9:24am May 31, 2018 12:54pm Clonidine Hcl Discontinued 0.1 MG PO 2 Times Per Day 60 October 16, 2017 10:23am September 30, 2018 2:45pm Metoprolol Tartrate Discontinued 50 MG PO 2 Times Per Day 30 October 16, 2017 10:23am December 21, 2017 7:40am Naltrexone Discontinued 50 MG PO Once Per Day 90 October 16, 2017 10:23am January 05, 2019 6:23am Naltrexone Discontinued 50 MG PO Once Per Day 90 October 16, 2017 10:23am February 21, 2020 1:46pm Pantoprazole Discontinued 40 MG PO Once Per Day 30 October 16, 2017 10:23am June 25, 2018 8:52am Ramipril Discontinued 1 CAP PO Once Per Day October 16, 2017 10:23am July 30, 2018 1:46pm Folic Acid Discontinued 1 MG PO Once Per Day October 16, 2017 10:23am September 02, 2018 2:14pm Pravastatin Discontinued 20 MG PO Once Per Day October 16, 2017 10:23am August 23, 2018 4:29pm Blood Sugar Diagnostic (Ge100 Blood Gluc ose Test Strip) 1 EACH strip Discontinued 1 EACH MC Four Times a Day 150 October 19, 2017 9:29am October 25, 2018 4:07pm Lancets Discontinued 1 EACH MC Four Times a Day 150 October 19, 2017 9:32am October 25, 2018 4:06pm GE BRAND Lancing Device Discontinued 1 EACH MC Four Times a Day 1 October 19, 2017 9:33am November 26, 2017 7:41am GE BRAND Lancing Device Discontinued 1 EACH MC Four Times a Day 1 November 26, 2017 7:4 1am October 25, 2018 4:06pm GE BRAND Metoprolol Tartrate Discontinued 50 MG PO 2 Times Per Day December 21, 2017 7: 40am December 26, 2018 11:07am Pen Needle, Diabetic Discontinued 1 EACH MC Three times a da y 100 January 18, 2018 10: 46am January 05, 2019 6:47am Pen Needle, Diabetic Discontinued 1 EACH MC Three times a da y 100 January 18, 2018 10: 46am February 21, 2020 2:21pm Insulin Aspart U-100 (Novolog Flexpen) 1 00 UNIT/1 ML insulin pen Discontinued 10 UNIT SQ Three times a day January 18, 2018 10:46am June 28, 2018 8:40am Insulin Glargine (Lantus Solostar) 100 UNIT/1 ML insul in pen Discontinued 32 UNIT SQ At Bedtime January 18, 2018 10:46am March 03 8:28am Insulin Glargine (Lantus Solostar) 100 UNIT/1 ML insul in pen Discontinued 64 UNIT SQ 2 Times Per Day 3 March 03, 2018 8:28am January 05, 2019 7:05am Take 32U in the morning and 32U at night . Insulin Glargine (Lantus Solostar) 100 UNIT/1 ML insul in pen Discontinued 64 UNIT SQ 2 Times Per Day 3 March 03, 2018 8:28am January 19 9 6:29am Take 32U in the morning and 32U at night . Metformin Discontinued 1 TAB PO 2 Times Per Day 180 April 05, 2018 1:14pm July 07, 2018 8:14am Dapagliflozin (Farxiga) 5 MG tablet Discontinued 5 MG PO On ce Per Day 90 April 05, 2018 1:1 4pm July 17, 2018 8:15am Nicotine Discontinued 14 MG TD Once Per Day 30 April 05, 2018 1:22pm October 25, 2018 4:06pm Blood-Glucose Meter Discontinued 1 EACH MC Four Times a Day 1 May 31, 2018 12:54pm December 17, 2018 8:28am GE Brand Pantoprazole Discontinued 40 MG PO Once Per Day June 25, 2018 8:52am January 05, 2019 8:00am Pantoprazole Discontinued 40 MG PO Once Per Day June 25, 2018 8:52am February 16, 2019 6:32am Insulin Lispro (Humalog Kwikpen U-100) 1 00 UNIT/1 ML insulin pen Discontinued 10 UNIT SQ Three times a day 3 June 28, 2018 8:40am July 022017 9:28am Insulin Lispro (Humalog Kwikpen U-100) 1 00 UNIT/1 ML insulin pen Discontinued 10 UNIT SQ Three times a day 3 July 02, 2018 9:28am January 05 019 8:04am Insulin Lispro (Humalog Kwikpen U-100) 1 00 UNIT/1 ML insulin pen Discontinued 10 UNIT SQ Three times a day July 02, 2018 9:28am February 21, 2020 1:45pm Flu Vacc [id number] Up(Pf) (Afluria Quad [id number] Syringe) 60 MCG/0.5 ML syringe Discontinued 60 MCG IM ONE TIME 1 July 07, 2018 7:54am July 07, 2018 8:01am Metformin Discontinued 4 TAB PO Once Per Day 120 July 07, 2018 8:14am January 05, 2019 8:06am Metformin Discontinued 4 TAB PO Once Per Day 120 July 07, 2018 8:14am February 21, 2020 1:46pm Flash Glucose Sensor (Freestyle Nas 14 Day Sensor) 1 EACH kit Discontinued 1 EACH MC ONE TIME 1 July 07, 2018 8:28am October 082018 4:11pm Flash Glucose Scanning Bliss (Freestyle Nas 14 Day Bliss) 1 EACH EACH Discontinued 1 EACH MC 2 X Month 2 July 07, 2018 8:29am October 082018 4:11pm Dapagliflozin (Farxiga) 5 MG tablet Discontinued 5 MG PO On ce Per Day 90 July 17, 2018 8:15am January 05, 2019 8:13am Dapagliflozin (Farxiga) 5 MG tablet Discontinued 5 MG PO On ce Per Day 90 July 17, 2018 8:15am September 27, 2019 9:32am Ramipril capsule Discontinued 0 .Route .MEDSUPPLY 1 July 30, 2018 1:46pm February 21, 2020 2:23pm As directed Pravastatin Discontinued 20 MG PO Once Per Day August 23, 2018 4:29pm December 24, 2018 1:05pm Folic Acid Discontinued 1 MG PO Once Per Day September 02, 2018 2:14pm January 05, 2019 8:45am Folic Acid Discontinued 1 MG PO Once Per Day September 02, 2018 2:14pm July 08, 2019 6:27am Clonidine Hcl Discontinued 0.1 MG PO 2 Times Per Day 60 September 30, 2018 2:45pm January 05, 2019 9:14am Clonidine Hcl Discontinued 0.1 MG PO 2 Times Per Day 60 September 30, 2018 2:45pm February 21, 2020 1:42pm Blood Sugar Diagnostic (Ge100 Blood Gluc ose Test Strip) 1 EACH strip Discontinued 1 EACH MC Four Times a Day 150 October 29, 2018 8:43am December 10:19am Blood Sugar Diagnostic (Ge100 Blood Gluc ose Test Strip) 1 EACH strip Discontinued 1 EACH MC Four Times a Day 150 December 16, 2018 10:19am January 05 10:42am Blood Sugar Diagnostic (Ge100 Blood Gluc ose Test Strip) 1 EACH strip Discontinued 1 EACH MC Four Times a Day 150 December 16, 2018 10:19am February 21, 2020 2:21pm Blood-Glucose Meter Discontinued 1 EACH MC Four Times a Day December 17, 2018 8:2 8am January 05, 2019 10:43am Prodigy Brand Blood-Glucose Meter Discontinued 1 EACH MC Four Times a Day December 17, 2018 8:2 8am March 22, 2020 7:18am Prodigy Brand Pravastatin Discontinued 20 MG PO Once Per Day December 24, 2018 1:05pm January 05, 2019 10:50am Pravastatin Discontinued 20 MG PO Once Per Day December 24, 2018 1:05pm July 15, 2019 7:55am Metoprolol Tartrate Discontinued 50 MG PO 2 Times Per Day December 26, 2018 11 :07am January 05, 2019 10:50am Metoprolol Tartrate Discontinued 50 MG PO 2 Times Per Day December 26, 2018 11 :07am September 27, 2019 9:32am Insulin Glargine (Lantus Solostar U-100 Insulin) 100 unit/mL (3 mL) insulin pen Discontinued 64 UNIT SQ 2 Times Per Day January 19, 2019 6:29am September 27, 2019 9:32am Take 32U in the morning and 32U at night . Pantoprazole Discontinued 40 MG PO Once Per Day February 16, 2019 6:32am February 21, 2020 2:21pm Folic Acid Discontinued 1 MG PO Once Per Day July 08, 2019 6:27am September 27, 2019 9:32am Aspirin (Aspir-81) 81 mg tablet,delayed release (DR/EC ) Discontinued 81 MG PO Once Per Day July 15, 2019 7:54am February 21, 2020 2:21pm Pravastatin Discontinued 20 MG PO Once Per Day July 15, 2019 7:55am July 15, 2019 9:16am Atorvastatin Discontinued 80 MG PO daily July 15, 2019 9:16am September 27, 2019 9:32am Atorvastatin Discontinued 80 MG PO daily September 27, 2019 9:31am February 21, 2020 2:21pm Dapagliflozin (Farxiga) 5 mg tablet Discontinued 5 MG PO On ce Per Day September 27, 2019 9:31am February 21, 2020 1:43pm Folic Acid Discontinued 1 MG PO Once Per Day September 27, 2019 9:31am February 21, 2020 2:21pm Insulin Glargine (Lantus Solostar U-100 Insulin) 100 unit/mL (3 mL) insulin pen Discontinued 64 UNIT SQ 2 Times Per Day 3 September 27, 2019 9:31am February 21, 2020 2:21pm Take 32U in the morning and 32U at night . Metoprolol Tartrate Discontinued 50 MG PO 2 Times Per Day September 27, 2019 9:31am September 28, 2019 1:55pm Metoprolol Tartrate Discontinued 100 MG PO 2 Times Per Day 60 September 28, 2019 1:54pm February 21, 2020 2:21pm Insulin Lispro (Admelog Solostar U-100 I nsulin) 100 unit/mL insulin pen Discontinued 5 UNIT SQ Three times a day February 22, 2020 3:53pm February 21 4:02pm SQ prior to meals. max daily dose of 45 units. 140- 180=4, 181-240=6, 241-300=8, 301-350=10, 351-400= 12, over 400=15 Insulin Lispro (Admelog Solostar U-100 I nsulin) 100 unit/mL insulin pen Discontinued 5 UNIT SQ Three times a day February 22, 2020 4:00pm March 06 1:13pm SQ prior to meals. BS 140-180=4, 181-240 =6, 241-300=8, 301-350=10, 351-400= 12, over 400=15 Blood-Glucose Meter Active 1 EACH MC Four Times a Day March 22, 2020 7:18 am Prodigy Brand E11.65 bid te sting Insulin Glargine (Semglee Pen U-100 Insu oscar) 100 unit/mL (3 mL) insulin pen Active 32 UNIT SQ 2 Times Per Day July 20, 2020 7:00am Problems Active Problems Medical Problem Onset Date Status Finger dysfunction Act frances Diabetic neuropathy, type II diabetes mellitus Active Closed T12 fracture Ac tive Benign pancreatic tumor Active Essential hypertension Active Diabetes mellitus type 2, uncontrolled Active Mixed hyperlipidemia A ctive Liver failure Active Tobacco use disorder, continuous Nov ch 2014 Active Inactive/Resolved Problems Medical Problem Onset Date Status Right upper quadrant abdominal pain Resolved DKA (diabetic ketoacidosis) Resolved Substance abuse Resolv ed ETOH abuse Resolved Paroxysmal A-fib Resol luis fernando History of drug abuse Resolved Procedures Procedure Date Performed Status US Abd single organ/quadrant Septemb er 2019 8:33am completed Relevant Diagnostic Tests and/or Laboratory Data Laboratory Results Test Date/Time Result Interpretation Reference Range Result Comment Performing Site White Blood Count February 21, 2020 2:18pm 5.7 10e3/uL 4.45-10.71 [facility], [address] [place] [address] 96186 Red Blood Count February 21, 2020 2:18pm 5.16 10e6/uL 4.3-6.1 [facility], [address] [place] [address] 74938 Hemoglobin February 21, 2020 2:18pm 14.2 g/dL 13-18 [facility], [address] [place] [address] 93758 Hematocrit February 21, 2020 2:18pm 44.2 % 42-52 [facility], [address] [place] [address] 68744 Mean Corpuscular Volume February 20 2:18pm 85.7 fl 80-96 [facility], [address] [place] [address] 81617 Mean Corpuscular Hemoglobin February 2:18pm 27.5 pg 27-31 [facility], [address] [place] [address] 05281 Mean Corpuscular Hemoglobin Concent February 21, 2020 2:18pm 32.1 g/dl 33-37 [facility], [address] [place] [address] 63858 Red Cell Distribution Width February 2:18pm 16 % 11-15 [facility], [address] [place] [address] 37268 Platelet Count February 21, 2020 2:18pm 307 10e3/ul 130-472 [facility], [address] [place] [address] 94568 Mean Platelet Volume February 21, 2020 2:18p m 9.8 fl 9.1-13.1 [facility], [address] [place] [address] 32179 Neutrophils (%) (Auto) February 20 2:18pm 55.9 % 41-77 [facility], [address] [place] [address] 74367 Absolute Neutrophil February 21, 2020 2:18pm 3.2 # 1.7-7.6 [facility], [address] [place] [address] 65202 Lymphocytes (%) (Auto) February 20 2:18pm 34.0 % 14-[address] [facility], [address] [place] [address] 69729 Lymphocytes # (Auto) February 21, 2020 2:18p m 2.0 # 0.6-4.[address] [facility], [address] [place] [address] 54667 Monocytes (%) (Auto) February 21, 2020 2:18p m 7.3 % 4-12 [facility], [address] [place] [address] 13207 Monocytes # February 21, 2020 2:18pm 0.4 # 0.2-1.2 [facility], [address] [place] [address] Eosinophils (%) (Auto) February 20 2:18pm 1.6 % 0-[address] [facility], [address] [place] [address] Absolute Eosinophils (CBC) February 2:18pm 0.1 # 0.0-0.[address] [facility], [address] [place] [address] 34517 Basophils (%) (Auto) February 21, 2020 2:18p m 0.9 % 0.4-1.3 [facility], [address] [place] [address] Absolute Basophils (CBC) February 21, 2020 2:18pm 0.1 # 0.0-0.[address] [facility], [address] [place] [address] Immature Granulocyte % (Auto) February 052019 2:18pm 0.3 % 0-[address] [facility], [address] [place] [address] Absolute Immature Granulocyte (auto February 21, 2020 2:18pm 0.0 # 0-0.1 [facility], [address] [place] [address] Add Manual Differential February 20 020 2:[address] [facility], [address] [place] [address] Prothrombin Time February 21, 2020 2:18pm 9.6 SECONDS 9.6-12.[address] [facility], [address] [place], [place] [id number] INR International Normalized Ratio J une 2019 2:18pm 0.9 0.9-1.1 THE INR IS OPERATIONALLY DEFINED FOR SUSAN SH PLASMA FROMPATIENTS STABILIZED ON ORAL ANTICOAGULANTS. ROUTINE ANTICOAGULANT THERAPY 2.0-3.0RECURRENT SYSTEMIC EMBOLISM/HEART VALVE REPLACEMENT 2.5-3.[address] [facility], [address] [place] [address] 55724 Blood Urea Nitrogen May 28, 2020 1:30pm 19 mg/dL 05-30 [facility], [address] [place] [address] 61999 Blood Urea Nitrogen February 21, 2020 2:18pm 12 mg/dL 05-30 [facility], [address] [place] [address] 52844 Sodium Level May 28, 2020 1:30pm 134 mmol/L 132-146 [facility], [address] [place] [address] 45108 Sodium Level February 21, 2020 2:18pm 137 mmol/L 132-146 [facility], [address] [place] [address] 44746 Potassium Level May 28, 2020 1:30p m 4.2 mmol/L 3.5-5.5 [facility], [address] [place] [address] 40836 Potassium Level February 21, 2020 2:18pm 4.2 mmol/L 3.5-5.5 [facility], [address] [place] [address] 05953 Chloride Level May 28, 2020 1:30pm 103 mmol/l 99-109 [facility], [address] [place] [address] 78813 Chloride Level February 21, 2020 2:18pm 102 mmol/l 99-109 [facility], [address] [place] [address] 64503 Carbon Dioxide Level May 28, 2020 1:30pm 25 mmol/l - [facility], [address] [place] [address] 31514 Carbon Dioxide Level February 21, 2020 2:18p m 27 mmol/l -31 [facility], [address] [place] [address] 13885 Anion Gap May 28, 2020 1:30pm 10 mmol/l 8-16 [facility], [address] [place] [address] 27266 Anion Gap February 21, 2020 2:18pm 12 mmol/l 8-16 [facility], [address] [place] [address] 27543 Glucose Level May 28, 2020 1:30pm 238 mg/dL 74-106 [facility], [address] [place] [address] 85975 Glucose Level February 21, 2020 2:18pm 322 mg/dL 74-106 [facility], [address] [place] [address] 60253 Creatinine May 28, 2020 1:30pm 0.9 mg/dL 0.5-1.1 [facility], [address] [place] [address] 82572 Creatinine February 21, 2020 2:18pm 1.1 mg/dL 0.5-1.1 [facility], [address] [place] [address] 06181 Glomerular Filtration Rate Calc May 1:30pm Greater than 60 ml/min ABOVE 60 [facility], [address] [place] [address] 51840 Glomerular Filtration Rate Calc February 21, 2020 2:18pm Greater than 60 ml/min ABOVE 60 [facility], [address] [place] [address] 91151 Gamma Glutamyl Transpeptidase February 052019 2:18pm 118 U/L Repeated by: Whitney Ramirez 02/21/20 5629.Result Confirmation: 116 U/L [facility], [address] [place] [address] 17554 Alanine Aminotransferase (ALT/SGPT) May 28, 2020 1:30pm 43 U/L 10-49 [facility], [address] [place] [address] Alanine Aminotransferase (ALT/SGPT) February 21, 2020 2:18pm 81 U/L 10-49 [facility], [address] [place] [address] 11188 Aspartate Amino Transf (AST/SGOT) Se pt2019 1:30pm 14 U/L 0-33 [facility], [address] [place] [address] 50478 Aspartate Amino Transf (AST/SGOT) Ju ne 2019 2:18pm 79 U/L 0-33 [facility], [address] [place] [address] 60178 Alkaline Phosphatase May 28, 2020 1:30pm 106 U/L 45-129 [facility], [address] [place] [address] 44052 Alkaline Phosphatase February 21, 2020 2:18p m 122 U/L 45-129 [facility], [address] [place] [address] 10087 Lipase February 21, 2020 2:18pm 27 U/L 73-393 [facility], [address] [place] [address] 81411 Calcium Level May 28, 2020 1:30pm 9.4 mg/dL 8.5-10.1 [facility], [address] [place] [address] Calcium Level February 21, 2020 2:18pm 8.8 mg/dL 8.5-10.1 [facility], [address] [place] [address] 78187 Total Bilirubin May 28, 2020 1:30p m 0.3 mg/dL 0.3-1.2 [facility], [address] [place] [address] 03509 Total Bilirubin February 21, 2020 2:18pm 0.4 mg/dL 0.3-1.2 [facility], [address] [place] [address] 31559 Albumin May 28, 2020 1:30pm 3.7 g/dL 3.2-4.8 [facility], [address] [place] [address] Albumin February 21, 2020 2:18pm 4.0 g/dL 3.2-4.8 [facility], [address] [place], [place] [address] Serum Total Protein May 28, 2020 1:30pm 7.2 g/dL 5.7-8.2 [facility], [address] [place], [place] [address] Serum Total Protein February 21, 2020 2:18pm 7.4 g/dL 5.7-8.2 [facility], [address] [place], [place] [address] Magnesium Level May 28, 2020 1:30p m 2.3 mg/dL 1.3-2.7 [facility], [address] [place], [place] [address] Free Thyroxine February 21, 2020 2:18pm 1.31 ng/dL 0.89-1.76 [facility], [address] [place], [place] [address] Thyroid Stimulating Hormone (TSH) Ju ne 2019 2:18pm 0.57 uIU/mL 0.35-5.50 [facility], [address] [place], [place] [address] Thyroid Stimulating Hormone (TSH) Se pt2019 1:30pm 1.29 uIU/mL 0.35-5.50 [facility], [address] [place] [address] 96831 Urine Drug Screen (T) May 1:30pm See scanned report [facility] Biointact without Calcium Septem 2019 1:30pm 20 pg/mL Interpretive Guide Intact PTH Calcium -------Normal Parathyroid Normal NormalHypoparathyroidism Low or Low Normal LowHyperparathyroidism Primary Normal or High High Secondary High Normal or Low Tertiary High HighNon- Parathyroid Hypercalcemia Low or Low Normal HighTHIS TEST WAS PERFORMED AT:[facility] [id number] MERATI,MD [facility] Urine Random Creatinine February 20 2:19pm 195.0 mg/dL THERE IS NO ESTABLISHED RANGE FOR RANDOM URINE CREATININE [facility], [address] [place] [address] Urine Microalbumin February 21, 2020 2:19pm 27.5 mg/L 0.0-29.9 [facility], [address] [place] [address] Urine Microalbumin/Creatinine Ratio February 21, 2020 2:19pm 14.1 ug/mg 0.0-30.[address] [facility], [address] [place] [address] 22666 Hemoglobin A1c February 21, 2020 2:18pm 9.5 % 4.0-6.0 Th e following ranges may be used for interpretation of results: HGBA1C degree of glucose control: Greater than 8%: Action Suggested * Less than 7%: Goal of Diabetic Therapy Less than 6%: Normal Factors such as duration of diabetes, adherence to therapyand the age of the patient should also be considered inassessing the degree of blood glucose control. * High risk of developing halfway complications such asretinopathy, nephropathy, neuropathy, cardiopathy, etc. Some danger of hypoglycemic reaction in Type I diabetics.Some glucose intolerant individuals and "Sub Clinical"diabetics may demonstrate HGBA1C levels in this area. [facility], [address] [place] [address] Estimated Average Glucose (eAG) February 21, 2020 2:18pm 226 mg/dl An A1C of 7% - the goal of diabetic therapy - is equivalentto an EAG of 154 mg/dl. [facility], [address] [place] [address] 57165 Diagnostic Imaging Reports Report Dictated Date/Time Dictated By Status Radiology Report May 30 0 10:22am Brian Fowler MD completed [address] [place] [address] [phone] NAME SEX PT STATUS ACCOUNT NUMBER FALGUNI ALSTON JR REG REF [id number] ORDERING PHYSICIAN LOCATION MEDICAL RECORD NO. Olivia Woods US [id number] ATTENDING PHYSICIAN DATE OF DATE OF EXAM/TIME Olivia Woods ALVINO 1975 05/30/20932 TYPE / EXAM US Abd single organ/quadrant REASON FOR EXAM Pancreatic tumor COMPARISON: None TECHNIQUE: Real-time sonography of the abdomen is performed. FINDINGS: GALLBLADDER: The gallbladder is physiologically collapsed, and it demonstrates a slightly thickened wall at 3.2 mm. No cholelithiasis is seen, however. Common bile duct measures 7.6mm. The sonographic Alexander's sign is negative. LIVER: The liver displays normal homogeneous architecture throughout. There is no intrahepatic or extrahepatic biliary dilatation. No focal masses are identified. PANCREAS: Suboptimal imaging of the pancreas. Patient describes a history of pseudocyst of the pancreas. No mass seen in region of pancreatic head and is heterogeneously hypoechoic, and measures approximately 3.8 x 3.1 x 4.2 cm. RIGHT KIDNEY: The right kidney is normal in appearance. It measures approximately 10.8cm in long diameter and demonstrates no calculus or hydronephrosis. IMPRESSION: 1. No cholelithiasis. Visualized with collapse gallbladder demonstrates slightly thickened wall. Slight dilatation of the common bile duct. 2. Suboptimal imaging of the pancreas. Describes history of pancreatic pseudocysts, not seen. 3. No renal calculus or hydronephrosis on the right. 4. No free intraperitoneal fluid. If there are clinical concerns for gallbladder dysfunction, follow-up nuclear medicine HIDA scan may be helpful for further evaluation. Reported By Brian Fowler MD on 05/30/20 1022 Signed By Brian Fowler MD on 05/30/20 1029 Date Time CC: Olivia Woods; Brian Fowler MD Techn: FREST Trans Dt/Tm: Trans by: DT Prt Dt/Tm: : Total DLP = 0.00 mGy-cm 4264-1014: Total Radiation Dose = 0.0000 mSv Lifetime Dose: 0 mSv Health Concerns Health Concerns may be documented in an alternate section. Advance Directives Advance Directive Response Recorded Date/Time Advanced Directive No No 2019 11:11pm MOLST No July 13, 020 11:11pm Advance Directives on File or in chart? No July 13, 2020 11:11pm Does Patient have a DNR? No July 13, 2020 11:11pm Healthcare Proxy Yes Nov 2019 11:11pm Health Care Proxy Name Brianne Alston July 13, 2020 11:11pm Health Care Proxy Phone Number [phone] July 13, 2020 11:11pm Living Will No February 1:19pm Chief Complaint and Reason for Visit Chief Complaint Encounter to [facility] I48.0,E78.2,E11.65,I10 EKG PAF Diabetes Diabetes R29.890,E11.40,I10,K72.90,F10.10,F19.10 PANCREATIC TUMOR Nausea/vomiting Hospital Discharge Follow-up Reason for Visit Benign pancreatic t umor Diabetes mellitus type 2, uncontrolled Essential hypertension Liver failure Mixed hyperlipidemia Benign pancreatic tumor Diabetes mellitus type 2, uncontrolled Diabetic neuropathy, type II diabetes mellitus Liver failure Benign pancreatic tumor Diabetes mellitus type 2, uncontrolled Diabetic neuropathy, type II diabetes mellitus Essential hypertension Finger dysfunction Liver failure Tobacco use disorder, continuous Encounters Encounter Location(s) Ar rival/Admit Date Discharge/Depart Date Provider(s) Departed Physician/Provider Office Visit [facility] February 21, 2020 1:23pm February 21, 2020 2:45pm Olivia fernandez NP Registered Referred [facility] February 21, 2020 2:15pm Olivia Woods NP Registered Outpatient [facility] March 06, 2020 12:25pm Olivia Woods NP Registered Referred [facility] March 06, 2020 12:28pm Olivia Woods NP Departed Physician/Provider Office Visit [facility] March 06, 2020 12:42pm March 06, 2020 1:39pm Olivia fernandez NP Departed Physician/Provider Office Visit [facility] May 28, 2020 11:49am May 28, 2020 1:01pm Olivia Woods NP Registered Referred [facility] May 28, 2020 1:18pm Olivia Woods NP Registered Referred [facility]Ul[facility]ound May 30, 2020 7:57am Olivia Woods NP Registered Outpatient [facility] Surgery July 13, 2020 8:42pm July 15, 2020 5:20pm Adan Garza MD Departed Physician/Provider Office Visit [facility] July 25, 2020 11:13am July 25, 2020 12:16pm Mark Velez DO Recent Diagnosis Onset Date Benign pancreatic tumor Diabetes mellitus type 2, uncontrolled Essential hypertension Liver failure Mixed hyperlipidemia Benign pancreatic tumor Diabetes mellitus type 2, uncontrolled Diabetic neuropathy, type II diabetes mellitus Liver failure Benign pancreatic tumor Diabetes mellitus type 2, uncontrolled Diabetic neuropathy, type II diabetes mellitus Essential hypertension Finger dysfunction Liver failure Tobacco use disorder, continuous [facility] 2014 Assessments Diagnosis Onset Date Res olution Status Benign pancreatic tumor acute Diabetes mellitus type 2, uncontrolled acute Essential hypertension acute Liver failure acute Mixed hyperlipidemia acute Benign pancreatic tumor acute Diabetes mellitus type 2, uncontrolled acute Diabetic neuropathy, type II diabetes mellitus acute Liver failure acute Benign pancreatic tumor acute Diabetes mellitus type 2, uncontrolled acute Diabetic neuropathy, type II diabetes mellitus acute Essential hypertension acute Finger dysfunction acute Liver failure acute Tobacco use disorder, continuous [facility] 2014 acute Family History Relationship Condition A ge at Onset Recorded Date/Time Not Specified Alcoholism Unknown Myocardial infarction Unknown Functional Status No Functional Status information available Goals Goals may be documented in an alternate section. Immunizations No Immunization Information Available Mental Status No Mental Status Information Available Medical Equipment No Medical Equipment Information available Insurance Providers Guarantor FALGUNI ALSTON JR Address [address] [address] Contact Info. Home Phone: Payer Policy Id Coverage Id Subscriber's Name Subscriber Id Effective Date Expiration Date BC/BS [facility] [id number] BRIANNE L ALECIA [id number] [facility] [id number] FALGUNI ALSTON JR [id number] [id number] BRIANNE ALSTON [id number] 2013 [facility] [id number] FALGUNI ALSTON [id number] Self Pay Self N/A BCBS OF [place]. [id number] BRIANNE Echeverria ALECIA Plan of Treatment Continue to follow with endocrinology. Retinal exam. Refuses boat tester referral. Gabapentin does increased for diabetic neuropathy to feet. Labs as ordered to investigate hand cramps. U/S reordered U/S reordered. Pt. agrees to go. Pt unsure of type of insulin. Reports that he did not have insulin dose adjuste d by endocrine, but has not started farxiga Will repeat renal function. PT is asking for US. Will re-order to assess status of benign tumor Pt reports that fingers twist and cramp. States that they are often contorted. Denies known trigger and reports that this is painful. Will check lytes, thyroid, and parath yroid. no change in pms or function noted pt has history of ducumented liver failure. will re-check liver enzymes and wi ll re-order us as per pt requests bp is at goal. will continue lisinoprial as patient reports that he is tolerati ng without side effects. history of etoh abuse. will get medmatch today History of this. will get medmatch continues to be daily smoker. patient denies need for low dose ct at this time remains uncontrolled. will send back toDr. Maurer as per request Patient reports that he has been diagnosed with a benign pancreatic tumor. Repo rts that he does not wish to see a specialist regarding this at this time. Discussed that we will ge t ultrasound of the abdomen, and will discuss referral based on ultrasound results. Will refer to endocrinology as per Dr. Velez. Increase a.m. dose of Basaglar insu oscar to 45 units. Will maintain p.m. dose of 35 units. Dietary discussed at length. Patient refu ses referral to dietary services here at [facility]. Reports will be compliant with dietary t eaching at Dr. Maurer. Patient was asked to have diabetic eye exam today. Patient agrees to go [place] the [place] and have diabetic eye exam. Will recheck liver enzymes in 6 weeks. Will obtain ultrasound of the abdomen as last liver enzymes were elevated. Will order a Medwatch as patient has history of substance abuse. Patient does report that he has a pulling sensation pain and loss of feeling to bilateral feet. Diabetic foot exam is completed in this visit. Patient reports that he took lyndsay apentin 600 mg at bedtime previously, and it did help his foot pain. Will start gabapentin 400 mg 3 times daily. We will see patient back in the clinic in 6 weeks, and will re-address this issue alma bush. Patient reports that his insurance is changed, and due to his insurance change stan morrow was required to find a new primary care provider. Discussed with patient that provider patient relationship requires work from both provider and patient. Encouraged him to be candid with provider about health care needs and problems. Encouraged him to have/keep regular appointment s, and discussed with him the seriousness of his condition and encouraged him to make appropriate dietary choices, and take medications as prescribed. Patient has history of hyperlipidemia. Discussed with him that we will obtain f asting lipid panel. Will advise him of results as it is available. We will continue medications at this time as they were previously ordered. And will see patient back in the clinic in approximate ly 10 days to follow-up. Patient verbalizes understanding and agreement Patient reports long standing history of essential hypertension. Blood pressure is at goal today. Patient reports that he is currently taking Lopressor for his blood pressure. S tates that he does not miss doses and that he feels his blood pressure is well controlled. Heart r ate is essentially normal. Will refill this medication at this time. Will obtain appropriate labs including CBC CMP thyroid studies microalbumin and hemoglobin A1c. Will advise patient of results as they are available. And will follow up with patient in the office somewhere between 10 a nd 14 days. Patient reports that he is an insulin-dependent diabetic. Reports that his bloo d sugars do remain high. States that he has been out of his insulin for approximately 24 hours. Stan morrow is currently been taking a long-acting insulin at night, and a short acting insulin preprandial. Patient reports that he has been on this routinely for quite some time, however he states that his bl ood sugars have remained elevated. Patient also reports that his preprandial doses have been ap proximately 30 units 3 times a day. Will refill patient's insulin at this time. We will also get labs including hem oglobin A1c. Will discuss change in insulin regimen with patient at follow-up in the office in 10 to 14 days. Patient verbalizes understanding and agreement. Patient reports that he has a history of proximal atrial fib. States that he doll s not been in this rhythm for "quite some time". Patient reports that the only medication that he is taking as far as his atrial we have is his Lopressor and his aspirin. Patient does report that stan morrow takes his aspirin daily and that he tries not to miss doses of it for his Lopressor. Patient has seen cardiology in the past, declines cardiology referral at this time. Patient's records would indicate that he has a benign tumor of the pancreas. Ac cording to records this has been evaluated in the past. Will order liver studies and a lipase. Wi ll advise patient of results as they are available if liver studies are elevated, will consider repea ting ultrasound of the liver. Patient reports that he does have a history of liver failure. States that he is not seeing GI physician at this time. Discussed with him referral to GI, patient declines th is at this time. Will obtain some labs including PT/INR and a lipase. Will advise patient of res ults as they are available. We will see patient back in the clinic in somewhere between 10 and 1 4 days, and will discuss GI referral again at that time. Patient has documented history of EtOH abuse. Patient declines that he is using EtOH at this time. States that he cannot remember the last time that he used alcohol will obtain [facility] [employer] drug compliance panel. Will advise patient of results as they are available. Did kristina scuss with patient importance of avoiding EtOH use if at all possible as it does turn to sugar and does make his blood sugar extremely elevated. Patient verbalizes understanding and agreement. Please disregard entered in error. Future Tests Future scheduled test information is unavailable Pending Tests Pending diagnostic test information is unavailable Future Visits Future appointment information is unavailable Referrals to Other Providers Reason for Referral Referral Start Date Provider Provider Conta ct Information Provider Address [phone] - Unspecified fracture of T11-T 12 vertebra, initial encounter for closed fracture July 25, 2020 orthopedics E11.40 - Type 2 diabetes mellitus with d iabetic neuropathy, unspecified,Z79.4 - [facility] (current) use of insulin July 25, 2020 Imaging Retinal Future Procedures Future procedure information is unavailable Future Medications Future medication information is unavailable Patient Instructions Patient instructions are unavailable Social History Smoking Status Status Date of Observation Current every day smoker July 2:52pm Observation Status Observation Response Jackson e of Response Smoking Status Current every day smoker July 15, 2020 2:52pm Alcohol Use Yes July 13, 2020 6:20pm Substance Use Yes Novemb 2019 6:20pm Inhalant Use No February 1:19pm When did patient quit smoking? N/A February 20, 2020 1:19pm Assigned Sex Male Vital Signs Vital Reading Result Ref erence Range Collection Date/Time Height 67 [in_i] February 21, 2020 2:29pm Weight 144.00 [lb_av] February 21, 2020 2:29pm Body Temperature 97.7 [degF] 97.6-99.5 February 21, 2020 2:29pm Heart Rate 114 /min 60-1 00 February 21, 2020 2:29pm Respiratory rate 18 /min 12-February 21, 2020 2:29pm Oxygen saturation by Pulse oximetry 96 % 95- 100 February 21, 2020 2:29pm BP Systolic 120 mm[Hg] February 21, 2020 2:29pm BP Diastolic 82 mm[Hg] February 21, 2020 2:29pm BMI (Body Mass Index) 22.5 kg/m2 February 21, 2020 2:29pm Height 67 [in_i] March 06, 2020 2:00pm Weight 164.25 [lb_av] March 06, 2020 2:00pm Body Temperature 98.9 [degF] 97.6-99.5 March 06, 2020 2:00pm Heart Rate 81 /min 60-100 March 06, 2020 2:00pm Respiratory rate 18 /min 12-March 06, 2020 2:00pm Oxygen saturation by Pulse oximetry 97 % 95- 100 March 06, 2020 2:00pm BP Systolic 110 mm[Hg] March 06, 2020 2:00pm BP Diastolic 70 mm[Hg] March 06, 2020 2:00pm BMI (Body Mass Index) 25.7 kg/m2 March 06, 2020 2:00pm Height 67 [in_i] May 28, 2020 1:04pm Weight 163.37 [lb_av] May 28, 2020 1:04pm Body Temperature 97.9 [degF] 97.6-99.5 May 28, 2020 1:04pm Heart Rate 60 /min 60-100 May 28, 2020 1:04pm Respiratory rate 18 /min 12-May 28, 2020 1:04pm Oxygen saturation by Pulse oximetry 96 % 95- 100 May 28, 2020 1:04pm BP Systolic 112 mm[Hg] May 28, 2020 1:04pm BP Diastolic 60 mm[Hg] May 28, 2020 1:04pm BMI (Body Mass Index) 25.5 kg/m2 May 28, 2020 1:04pm Height 69 [in_i] July 15, 2020 2:52pm Weight 160.43 [lb_av] July 15, 2020 2:52pm Body Temperature 97.0 [degF] 97.6-99.5 July 15, 2020 5:10pm Heart Rate 79 /min 60-100 July 15, 2020 5:10pm Respiratory rate 20 /min -July 15, 2020 5:10pm Oxygen saturation by Pulse oximetry 99 % 95- 100 July 15, 2020 5:10pm BP Systolic 111 mm[Hg] July 15, 2020 5:10pm BP Diastolic 64 mm[Hg] July 15, 2020 5:10pm BMI (Body Mass Index) 22.6 kg/m2 July 15, 2020 2:52pm Height 68 [in_i] July 25, 2020 11:33am Weight 159.50 [lb_av] July 25, 2020 11:33am Heart Rate 117 /min 60-1 00 July 25, 2020 11:33am Respiratory rate 16 /min 12-July 25, 2020 11:33am Oxygen saturation by Pulse oximetry 98 % 95- 100 July 25, 2020 11:33am BP Systolic 100 mm[Hg] July 25, 2020 11:33am BP Diastolic 72 mm[Hg] July 25, 2020 11:33am BMI (Body Mass Index) 24.2 kg/m2 July 25, 2020 11:33am
--- OUTSIDE RECORDS SUMMARY | 2020-10-05 14:13 | CCD | Continuity of Care Document ---
Author Author [facility] Address [address] [place] [address] Phone Support Name Relationship Address [place] [address] Scooter Hernández PRS [address] [place] [address] Rebel Morro PRS [address] [place] [address] Adan Garza PRS [address] [place] [address] Allergies, Adverse Reactions, Alerts No known allergies. [...] MC Four Times a Day 150 February 21, 2020 2:16pm May 1:17pm test [...] 1:17pm Ramipril Discontinued 5 MG PO daily February 21, 2020 2:23pm March 06, 2020 [...] 600 MG PO Three times a day May 28, 2020 1:13pm Insulin Syr/Ndl U100 Half Hiram (Bd Insul in Syringe Half Unit) 0.3 mL 31 gauge x 5/16" syringe Active 0 .ROUTE .MEDSUPPLY May 28, 2020 1:14pm one syring per [...] Insulin) 100 unit/mL (3 mL) insulin pen Active 32 UNIT SQ 2 Times Per Day May 28, 2020 3:45pm Etgssl-Bkbuklaf-Olnpzog (Creon) 12,000-3 8,000 -60,000 unit capsule,delayed release(DR/EC) Discontinued 1 CAP PO Three times a day November 18, 2017 9:0 6am February 21, 2020 1:46pm Insulin Glargine (Lantus U-100 Insulin) 100 UNITS/ML s olution Discontinued 35 UNITS SC Every Morning November 20, 2017 8:10am October 4:07pm Insulin Glargine (Lantus Solostar U-100 Insulin) 100 UNIT/1 ML insulin pen Discontinued 32 UNIT SQ At Bedtime 2 November 20, 2017 8:13am January 18 10:46am Pen Needle, Diabetic Active 1 EACH MC Three times a da y July 14, 2020 1 2:15am use one needle four times da macarena with insulin injection Ramipril Active 5 MG PO Once Per Day July 14, 2020 12:15am Clonidine Hcl Discontinued 0.1 MG PO 2 Times Per Day 60 March 25, 2012 3:43pm September 28, 2012 8:19am Metoprolol Tartrate Discontinued 50 MG PO 2 Times Per Day March 25, 2012 3:4 3pm September 28, 2012 8:19am Pantoprazole Discontinued 40 MG PO Once Per Day March 25, 2012 3:43pm June 21, 2012 12:23pm Folic Acid Discontinued 1 MG PO Once Per Day March 25, 2012 3:43pm March 31, 2013 9:52am Multivit With Jln-Ub-Wnltgcxn (One Daily For Men) 0.4-600 mg-mcg tablet [...] 40 MG PO Once Per Day 30 June 21, 2012 12:23pm March 31, 2013 [...] 40 MG PO Once Per Day March 31, 2013 9:52am November 04, 2013 9:06am Folic Acid Discontinued 1 MG PO Once Per Day March 31, 2013 9:52am November 18, 2013 11:08am Multivit With Mwb-Jw-Ozdhnezi (One Daily For Men) 0.4-600 mg-mcg tablet Active 1 EACH PO Once Per Day March 31, 2013 9:52am Insulin Aspart (Novolog) Discontinued 2 U SQ Three times a day March 31, 2013 9:52 am November 18, 2013 11:08am Insulin Glargine,Hum.rec.anlog (Lantus Solostar) Discontinued 54 U SQ Every night at bedtime March 31, 2013 9:52am November 18, 014 11:08am Blood Sugar Diagnostic (Onetouch Ultra Test) strip Discontinued 1 STRIP TD Four Times a Day May 18, 2013 8:00am November 182013 11:08am INFLUENZA VIRUS VACCINE (FLUVIRIN 2012- (5 ML VIAL)) Discontinued 0.5 MILLILITRE IM ONE TIME July 08, 2013 8:02am July 082012 9:18am Pantoprazole Discontinued 40 MG PO Once Per Day November 04, 2013 9:06am November 18, 2013 [...] Discontinued 40 MG PO Once Per Day August 04, 2014 9:49am February 28, 2015 [...] 20 MG PO Once Per Day 30 November 28, 2014 10:38am February 28, 2015 [...] PO 2 Times Per Day 60 February 06, 2016 7:47am May 18, 2017 9:11am Naltrexone Discontinued 50 MG PO Once Per Day 30 February 20, 2016 6:44am 2016 7:39am Insulin Glargine (Lantus Solostar) 100 UNIT/1 ML insul in pen Discontinued 56 UNIT SQ At Bedtime February 28, 2016 6:50am January 01, 017 10:06am Naltrexone Discontinued 50 MG PO Once Per Day 2016 7:39am January 01, 2017 10:06am Insulin Aspart U-100 (Novolog Flexpen) 1 00 UNIT/1 ML insulin pen Discontinued 10 UNIT SQ Three times a day April 11, 2016 7:13am December 09, 017 [...] 40 MG PO Once Per Day January 01, 2017 10:06am February 12, 2017 [...] 2 March 20, 2017 8:07am May 9:23am Voxcrx-Stzjbgdd-Yrayehn (Creon) 1 EACH c apsule,delayed release(DR/EC) Discontinued [...] Discontinued 14 MG TD Once Per Day April 05, 2018 1:22pm October 25, 2018 4:06pm Blood-Glucose Meter Discontinued 1 EACH MC Four Times a Day May 31, 2018 12:54pm December 17, 2018 [...] 3 July 02, 2018 9:28am January 05 8:04am Insulin Lispro (Humalog Kwikpen U-100) 1 00 UNIT/1 ML insulin pen Discontinued 10 UNIT SQ Three times a day July 02, 2018 9:28am February 21, 2020 1:45pm Flu Vacc [id number] 6mos Up(Pf) (Afluria Quad [id number] Syringe) 60 MCG/0.5 ML syringe Discontinued 60 MCG IM ONE TIME July 07, 2018 7:54am July 07, 2018 [...] 8:28am October 082018 4:11pm Flash Glucose Scanning [place] (Freestyle Nas 14 Day [place]) 1 EACH EACH Discontinued 1 EACH MC [...] EACH MC Four Times a Day 1 December 17, 2018 8:2 8am January 05, 2019 10:43am Prodigy Brand Blood-Glucose Meter Discontinued 1 EACH MC Four Times a Day 1 December 17, 2018 8:2 8am March 22, [...] 64 UNIT SQ 2 Times Per Day September 27, 2019 9:31am February 21, 2020 2:21pm Take 32U in the morning and 32U at night . Metoprolol Tartrate Discontinued 50 MG PO 2 Times Per Day 30 September 27, 2019 9:31am September 28, 2019 [...] EACH MC Four Times a Day 1 March 22, 2020 7:18 am Prodigy Brand E11.65 bid te sting Problems Active Problems Medical Problem Onset Date Status Right upper quadrant abdominal pain Active Finger dysfunction Act frances Diabetic neuropathy, type II diabetes mellitus Active DKA (diabetic ketoacidosis) Active Benign pancreatic tumor Active Substance abuse Active ETOH abuse Active Essential hypertension Active Diabetes mellitus type 2, uncontrolled Active Mixed hyperlipidemia A ctive Liver failure Active Tobacco use disorder, continuous Nov Active Paroxysmal A-fib Activ e History of drug abuse Active Procedures Procedure Date Performed Status Xray Chest One View July 13 6:49pm completed Xray Ribs unilat w/PA CXR- LT Novemb er 2019 6:49pm completed CT Head without contrast July 7:33pm completed CT Abd/pel w/o contrast July 9:11pm completed MRI Abdomen w/ & w/o contrast Novemb er 2019 8:33am active Stool Occult Blood (RODRIGO) July 15 0 completed Blood Culture July 13, 2020 active SARS-CoV-2 (PCR) Interpretation Linda go 2019 completed US Abd single organ/quadrant Septemb er 2019 8:33am completed Relevant Diagnostic Tests and/or Laboratory Data Laboratory Results Test Date/Time Result Interpretation Reference Range Result Comment Performing Site White Blood Count July 15, 2020 2:00p m 5.3 10e3/uL 4.45-10.71 [facility], [address] [place] [address] 69650 White Blood Count February 21, 2020 2:18pm 5.7 10e3/uL 4.45-10.71 [facility], [address] [place] [address] 14961 Red Blood Count July 15, 2020 2:00pm 2.39 10e6/uL 4.3-6.1 [facility], [address] [place] [address] 91681 Red Blood Count February 21, 2020 2:18pm 5.16 10e6/uL 4.3-6.1 [facility], [address] [place] [address] 72379 Hemoglobin July 15, 2020 2:00pm 6.4 g/dL Called to Mark Choudhury @ 1405 by Cristina Jacobs. Results read back. Repeated by: Cristina Jacobs 07/15/20 1412.Result Confirmation: 6.4 g/dL [facility], [address] [place] [address] 80419 Hemoglobin February 21, 2020 2:18pm 14.2 g/dL 13-18 [facility], [address] [place] [address] 48497 Hematocrit July 15, 2020 2:00pm 20.7 % 42-52 [facility], [address] [place] [address] 80220 Hematocrit February 21, 2020 2:18pm 44.2 % 42-52 [facility], [address] [place] [address] 14236 Mean Corpuscular Volume July 2:00pm 86.6 fl 80-96 [facility], [address] [place] [address] 67654 Mean Corpuscular Volume Nella 16th, 2 020 2:18pm 85.7 fl 80-96 [facility], [address] [place] [address] 67639 Mean Corpuscular Hemoglobin July 15, 2020 2:00pm 26.7 pg 27-31 [facility], [address] [place] [address] Mean Corpuscular Hemoglobin February 2:18pm 27.5 pg 27-31 [facility], [address] [place] [address] Mean Corpuscular Hemoglobin Concent July 15, 2020 2:00pm 30.9 g/dl -[address] [place] [address] [facility]AT[facility], [address] [place] [address] 15930 Mean Corpuscular Hemoglobin Concent February 21, 2020 2:18pm 32.1 g/dl -[address] [place] [address] LABORATORY, [address] [place] [address] 39262 Red Cell Distribution Width July 15, 2020 2:00pm 16 % 11-15 [facility], [address] [place] [address] Red Cell Distribution Width February 2:18pm 16 % 11-15 [facility], [address] [place] [address] 76303 Platelet Count July 15, 2020 2:00pm 147 10e3/ul 130-472 [facility], [address] [place] [address] 24954 Platelet Count February 21, 2020 2:18pm 307 10e3/ul 130-472 [facility], [address] [place] [address] 64280 Mean Platelet Volume July 15 2:00pm 10.1 fl 9.1-13.1 [facility], [address] [place] [address] 23519 Mean Platelet Volume February 21, 2020 2:18p m 9.8 fl 9.1-13.1 [facility], [address] [place] [address] 45221 Neutrophils (%) (Auto) July 15, 2020 2:00pm 56.5 % 4177 [facility], [address] [place] [address] 11835 Neutrophils (%) (Auto) February 20 2:18pm 55.9 % 41-77 [facility], [address] [place] [address] 41049 Absolute Neutrophil July 15 2:00pm 3.0 # 1.7-7.6 [facility], [address] [place] [address] 05969 Absolute Neutrophil February 21, 2020 2:18pm 3.2 # 1.7-7.6 [facility], [address] [place] [address] 89623 Lymphocytes (%) (Auto) July 15, 2020 2:00pm 29.9 % 14-46 [facility], [address] [place] [address] 27683 Lymphocytes (%) (Auto) February 20 2:18pm 34.0 % 14-46 [facility], [address] [place] [address] 43508 Lymphocytes # (Auto) July 15 2:00pm 1.6 # 0.6-4.6 [facility], [address] [place] [address] 72454 Lymphocytes # (Auto) February 21, 2020 2:18p m 2.0 # 0.6-4.6 [facility], [address] [place] [address] 02812 Monocytes (%) (Auto) July 15 2:00pm 10.9 % 4-12 [facility], [address] [place] [address] 29430 Monocytes (%) (Auto) February 21, 2020 2:18p m 7.3 % 4-12 [facility], [address] [place] [address] 96296 Monocytes # July 15, 2020 2:00pm 0.6 # 0.2-1.2 [facility], [address] [place] [address] 98671 Monocytes # February 21, 2020 2:18pm 0.4 # 0.2-1.2 [facility], [address] [place] [address] 12930 Eosinophils (%) (Auto) July 15, 2020 2:00pm 1.9 % 0-7 [facility], [address] [place] [address] 30111 Eosinophils (%) (Auto) February 20 2:18pm 1.6 % 0-7 [facility], [address] [place] [address] 54406 Absolute Eosinophils (CBC) July 15, 2020 2:00pm 0.1 # 0.0-0.5 [facility], [address] [place] [address] 68524 Absolute Eosinophils (CBC) February 2:18pm 0.1 # 0.0-0.5 [facility], [address] [place] [address] 47441 Basophils (%) (Auto) July 15 2:00pm 0.4 % 0.4-1.3 [facility], [address] [place] [address] Basophils (%) (Auto) February 21, 2020 2:18p m 0.9 % 0.4-1.3 [facility], [address] [place] [address] 29903 Absolute Basophils (CBC) July 2:00pm 0.0 # 0.0-0.2 [facility], [address] [place] [address] 71648 Absolute Basophils (CBC) February 21, 2020 2:18pm 0.1 # 0.0-0.2 [facility], [address] [place] [address] 36811 Immature Granulocyte % (Auto) Novem2019 2:00pm 0.4 % 0-2 [facility], [address] [place] [address] 53359 Immature Granulocyte % (Auto) February 052019 2:18pm 0.3 % 0-2 [facility], [address] [place] [address] 87111 Absolute Immature Granulocyte (auto July 15, 2020 2:00pm 0.0 # 0-0.1 [facility], [address] [place] [address] Absolute Immature Granulocyte (auto February 21, 2020 2:18pm 0.0 # 0-0.1 [facility], [address] [place] [address] 58893 Add Manual Differential July 2:00pm No [facility], [address] [place] [address] 05490 Add Manual Differential February 20 2:18pm No [facility], [address] [place] [address] 43947 Differential Total Cells Counted Jul 6:10pm 100 [facility], [address] [place] [address] 94067 Neutrophils (Manual) July 13 6:10pm 85 % 41-77 [facility], [address] [place] [address] 66237 Lymphocytes (Manual) July 13 6:10pm 14 % 14-46 [facility], [address] [place] [address] 38028 Monocytes (Manual) July 13 0 6:10pm 1 % 4-12 [facility], [address] [place] [address] 12594 Platelet Estimate July 13, 2020 6:10p m Appears normal NORMAL [facility], [address] [place] [address] 24220 RBC Morphology 2 July 13, 2020 6:10pm Appears normal NORMAL [facility], [address] [place] [address] 30016 Prothrombin Time July 13, 2020 6:10pm 11.0 SECONDS 9.6-12.3 [facility], [address] [place] [address] 45467 Prothrombin Time February 21, 2020 2:18pm 9.6 SECONDS 9.6-12.3 [facility], [address] [place] [address] 11019 INR International Normalized Ratio N 2019 6:10pm 1.0 0.9-1.1 THE INR IS OPERATIONALLY DEFINED FOR SUSAN SH PLASMA FROMPATIENTS STABILIZED ON ORAL ANTICOAGULANTS. ROUTINE ANTICOAGULANT THERAPY 2.0-3.0RECURRENT SYSTEMIC EMBOLISM/HEART VALVE REPLACEMENT 2.5-3.5 [facility], [address] [place] [address] 32725 INR International Normalized Ratio J 2019 2:18pm 0.9 0.9-1.1 THE INR IS OPERATIONALLY DEFINED FOR SUSAN SH PLASMA FROMPATIENTS STABILIZED ON ORAL ANTICOAGULANTS. ROUTINE ANTICOAGULANT THERAPY 2.0-3.0RECURRENT SYSTEMIC EMBOLISM/HEART VALVE REPLACEMENT 2.5-3.5 [facility], [address] [place] [address] 81175 Partial Thromboplastin Time - Radha N 2019 6:10pm 22.8 SECONDS 22.7-31.6 [facility], [address] [place] [address] 27786 Urine Color July 14, 2020 11:10am Yellow [facility], [address] [place] [address] 26343 Urine Appearance July 14, 2020 11:10a m Clear CLEAR [facility], [address] [place] [address] 03726 Urine pH July 14, 2020 11:10am 6.5 [facility], [address] [place] [address] 03487 Urine Specific [place] July 14, 2020 11:10am 1.017 [facility], [address] [place] [address] 89192 Urine Leukocyte Esterase July 11:10am Negative NEGATIVE [facility], [address] [place] [address] 95838 Urine Nitrate July 14, 2020 11:10am Negative NEGATIVE [facility], [address] [place] [address] 20298 Urine Protein July 14, 2020 11:10am Negative NEGATIVE [facility], [address] [place] [address] 58656 Urine Glucose July 14, 2020 11:10am > 1000 mg/dl NEGATIVE [facility], [address] [place] [address] 12846 Urine Ketones July 14, 2020 11:10am Negative NEGATIVE [facility], [address] [place] [address] 52655 Urine Urobilinogen July 14 0 11:10am 1 eu/dl [facility], [address] [place] [address] 17850 Urine Bilirubin July 14, 2020 11:10am Negative NEGATIVE [facility], [address] [place] [address] 23903 Urine Blood July 14, 2020 11:10am Negative NEGATIVE [facility], [address] [place] [address] 01686 Add Urine Microanalysis July 11:10am No [facility], [address] [place] [address] 87799 Arterial Blood pH (Temp corrected) N 2019 7:10pm 7.50 7.35-7.45 [facility], [address] [place] [address] 87175 Arterial Blood pCO2 (Temp correct) N 2019 7:10pm 38.1 mmHg 32.0-46.0 [facility], [address] [place] [address] 16038 Arterial Blood pO2 (Temp corrected) July 13, 2020 7:10pm 77.3 mmHg 74.0-100.0 [facility], [address] [place] [address] 95510 Arterial Bld O2 Saturation (Measur) July 13, 2020 7:10pm 96.0 % 92.0-96.0 [facility], [address] [place] [address] 05393 Arterial Blood HCO3 July 13 7:10pm 29.9 mmol/L 21.0-29.0 [facility], [address] [place] [address] 98547 Arterial Blood Base Excess July 13, 2020 7:10pm 6.4 -2.0-2.0 [facility], [address] [place] [address] 42361 Arterial Blood Total CO2 July 7:10pm 31.1 mmol/L 22.0-30.0 [facility], [address] [place] [address] 07470 Arterial/Alveolar Ratio July 7:10pm 0.7 0.8-1.0 [facility], [address] [place] [address] 19532 Blood Gas Puncture Site July 7:10pm Left radial artery [facility], [address] [place] [address] 92848 Tay Test July 13, 2020 7:10pm Performed [facility], [address] [place] [address] 82108 Venous Blood pH (Temp Corrected) Nov emb2019 10:30am 7.49 7.25-7.45 [facility], [address] [place] [address] 76080 Venous Blood pCO2 (Temp Corrected) N ovember 2019 10:30am 41.2 mmHg 41.0-51.0 [facility], [address] [place] [address] 32862 Venous Blood pO2 (Temp Corrected) No vember 2019 10:30am 36.3 mmHg 25.0-40.0 [facility], [address] [place] [address] 59261 Venous Blood Oxygen Saturation Novem 2019 10:30am 68.6 % 70-76 [facility], [address] [place] [address] 43605 Venous Blood HCO3 July 14, 2020 10:30am 31.1 mmol/L 22.0-26.0 [facility], [address] [place] [address] 68894 Venous Blood Base Excess July 10:30am 7.1 -3.0-3.0 [facility], [address] [place] [address] 91389 Venous Blood Total Carbon Dioxide No vember 2019 10:30am 32.4 mmol/L 23-30 [facility], [address] [place] [address] 49858 FiO2 July 14, 2020 10:30am 21.0 % [facility], [address] [place] [address] 04265 Blood Urea Nitrogen July 15 6:25am 19 mg/dL 05-30 [facility], [address] [place] [address] 81428 Blood Urea Nitrogen May 28, 2020 1:30pm 19 mg/dL 05-30 [facility], [address] [place] [address] 47905 Blood Urea Nitrogen February 21, 2020 2:18pm 12 mg/dL 05-30 [facility], [address] [place] [address] 05047 Sodium Level July 15, 2020 6:25am 135 mmol/L 132-146 [facility], [address] [place] [address] 04586 Sodium Level May 28, 2020 1:30pm 134 mmol/L 132-146 [facility], [address] [place] [address] 56301 Sodium Level February 21, 2020 2:18pm 137 mmol/L 132-146 [facility], [address] [place] [address] 35536 Potassium Level July 15, 2020 6:25am 3.7 mmol/L 3.5-5.5 [facility], [address] [place] [address] 59244 Potassium Level May 28, 2020 1:30p m 4.2 mmol/L 3.5-5.5 [facility], [address] [place] [address] 89180 Potassium Level February 21, 2020 2:18pm 4.2 mmol/L 3.5-5.5 [facility], [address] [place] [address] 55563 Chloride Level July 15, 2020 6:25am 103 mmol/l 99-109 [facility], [address] [place] [address] 66732 Chloride Level May 28, 2020 1:30pm 103 mmol/l 99-109 [facility], [address] [place] [address] 82197 Chloride Level February 21, 2020 2:18pm 102 mmol/l 99-109 [facility], [address] [place] [address] 40244 Carbon Dioxide Level July 15 6:25am 28 mmol/l 20-31 [facility], [address] [place] [address] 03558 Carbon Dioxide Level May 28, 2020 1:30pm 25 mmol/l 20-31 [facility], [address] [place] [address] 69895 Carbon Dioxide Level February 21, 2020 2:18p m 27 mmol/l 20-31 [facility], [address] [place] [address] 68794 Anion Gap July 15, 2020 6:25am 8 mmol/l 8-16 [facility], [address] [place] [address] 61537 Anion Gap May 28, 2020 1:30pm 10 mmol/l 8-16 [facility], [address] [place] [address] 07489 Anion Gap February 21, 2020 2:18pm 12 mmol/l 8-16 [facility], [address] [place] [address] 04374 Glucose Level July 15, 2020 6:25am 180 mg/dL -106 [facility], [address] [place] [address] Glucose Level May 28, 2020 1:30pm 238 mg/dL 74-106 [facility], [address] [place] [address] Glucose Level February 21, 2020 2:18pm 322 mg/dL -106 [facility], [address] [place] [address] 74004 Bedside Glucose July 15, 2020 4:21pm 172 70-115 RYAN PCX (POC GLUCOSE) Creatinine July 15, 2020 6:25am 0.8 mg/dL 0.5-1.1 [facility], [address] [place] [address] Creatinine May 28, 2020 1:30pm 0.9 mg/dL 0.5-1.1 [facility], [address] [place] [address] Creatinine February 21, 2020 2:18pm 1.1 mg/dL 0.5-1.1 [facility], [address] [place] [address] 48919 Glomerular Filtration Rate Calc 2019 6:25am Greater than 60 ml/min ABOVE 60 [facility], [address] [place] [address] Glomerular Filtration Rate Calc May 1:30pm Greater than 60 ml/min ABOVE 60 [facility], [address] [place] [address] 90560 Glomerular Filtration Rate Calc February 21, 2020 2:18pm Greater than 60 ml/min ABOVE 60 [facility], [address] [place] [address] 77223 Gamma Glutamyl Transpeptidase February 052019 2:18pm 118 U/L Repeated by: Whitney Ramirez 02/21/20 1629.Result Confirmation: 116 U/L [facility], [address] [place] [address] 16628 Alanine Aminotransferase (ALT/SGPT) July 13, 2020 6:10pm 35 U/L 49 [facility], [address] [place] [address] Alanine Aminotransferase (ALT/SGPT) May 28, 2020 1:30pm 43 U/L 49 [facility], [address] [place] [address] Alanine Aminotransferase (ALT/SGPT) February 21, 2020 2:18pm 81 U/L 10-49 [facility], [address] [place] [address] 25409 Aspartate Amino Transf (AST/SGOT) No vember 2019 6:10pm 19 U/L 0-33 [facility], [address] [place] [address] 98542 Aspartate Amino Transf (AST/SGOT) Se pt2019 1:30pm 14 U/L 0-33 [facility], [address] [place] [address] [id number] Aspartate Amino Transf (AST/SGOT) Ju ne 2019 2:18pm 79 U/L 0-33 [facility], [address] [place] [address] [id number] Alkaline Phosphatase July 13 6:10pm 116 U/L 45-129 [facility], [address] [place] [address] [id number] Alkaline Phosphatase May 28, 2020 1:30pm 106 U/L 45-129 [facility], [address] [place] [address] [phone] Alkaline Phosphatase February 21, 2020 2:18p m 122 U/L 45-129 [facility], [address] [place] [address] [id number] Amylase Level July 13, 2020 6:10pm 36 U/L 30-118 [facility], [address] [place] [address] [id number] Lipase July 13, 2020 6:10pm 27 U/L 73-393 [facility], [address] [place] [address] [id number] Lipase February 21, 2020 2:18pm 27 U/L 73-393 [facility], [address] [place] [address] [phone] Calcium Level July 15, 2020 6:25am 7.2 mg/dL 8.5-10.1 [facility], [address] [place] [address] [id number] Calcium Level May 28, 2020 1:30pm 9.4 mg/dL 8.5-10.1 [facility], [address] [place] [address] [phone] Calcium Level February 21, 2020 2:18pm 8.8 mg/dL 8.5-10.1 [facility], [address] [place] [address] [phone] Total Bilirubin July 13, 2020 6:10pm 1.0 mg/dL 0.3-1.2 [facility], [address] [place] [address] [id number] Total Bilirubin May 28, 2020 1:30p m 0.3 mg/dL 0.3-1.2 [facility], [address] [place] [address] [id number] Total Bilirubin February 21, 2020 2:18pm 0.4 mg/dL 0.3-1.2 [facility], [address] [place] [address] [id number] Albumin July 13, 2020 6:10pm 3.6 g/dL 3.2-4.8 [facility], [address] [place] [address] Albumin May 28, 2020 1:30pm 3.7 g/dL 3.2-4.8 [facility], [address] [place] [address] Albumin February 21, 2020 2:18pm 4.0 g/dL 3.2-4.8 [facility], [address] [place] [address] Serum Total Protein July 13 6:10pm 7.4 g/dL 5.7-8.2 [facility], [address] [place] [address] Serum Total Protein May 28, 2020 1:30pm 7.2 g/dL 5.7-8.2 [facility], [address] [place] [address] Serum Total Protein February 21, 2020 2:18pm 7.4 g/dL 5.7-8.2 [facility], [address] [place] [address] Lactic Acid Level July 13, 2020 10:10pm 1.2 mmol/L 0.5-2.2 A HIGH RESULT ON THIS 4HR LACTIC ACID WILL NOT REFLEX ANOTHER - YOU MUST ORDER ONE IF YOU WANT IT REPEATED [facility], [address] [place] [address] 68238 Magnesium Level July 15, 2020 6:25am 2.4 mg/dL 1.3-2.7 [facility], [address] [place] [address] 44455 Magnesium Level May 28, 2020 1:30p m 2.3 mg/dL 1.3-2.7 [facility], [address] [place] [address] 66235 Iron Level July 15, 2020 6:25am 34 ug/dL 65-175 Iron values may be falsely elevated in serum samples frompatients treated with anticoagulants (e.g., hemodialysispatients) [facility], [address] [place], [place] [id number] Iron Saturation July 15, 2020 6:25am 13 20-55 [facility], [address] [place] [address] 18934 Total Iron Binding Capacity July 15, 2020 6:25am 255 ug/dl 250-450 [facility], [address] [place] [address] 22700 Free Thyroxine February 21, 2020 2:18pm 1.31 ng/dL 0.89-1.76 [facility], [address] [place] [address] 57585 Thyroid Stimulating Hormone (TSH) Ju 2019 2:18pm 0.57 uIU/mL 0.35-5.50 [facility], [address] [place] [address] 18560 Thyroid Stimulating Hormone (TSH) Se pt2019 1:30pm 1.29 uIU/mL 0.35-5.50 [facility], [address] [place] [address] 60096 Urine Drug Screen (T) May 1:30pm See scanned report [facility] Biointact without Calcium Sept2019 1:30pm 20 pg/mL Interpretive Guide Intact PTH Calcium -------Normal Parathyroid Normal NormalHypoparathyroidism Low or Low Normal LowHyperparathyroidism Primary Normal or High High Secondary High Normal or Low Tertiary High HighNon- Parathyroid Hypercalcemia Low or Low Normal HighTHIS TEST WAS PERFORMED AT:[employer] [id number] MERATI,MD [facility] Urine Random Creatinine February 20 2:19pm 195.0 mg/dL THERE IS NO ESTABLISHED RANGE FOR RANDOM URINE CREATININE [facility], [address] [place] [address] 99444 Urine Microalbumin February 21, 2020 2:19pm 27.5 mg/L 0.0-29.9 [facility], [address] [place] [address] 23800 Urine Microalbumin/Creatinine Ratio February 21, 2020 2:19pm 14.1 ug/mg 0.0-30.0 [facility], [address] [place] [address] 52933 Hemoglobin A1c July 13, 2020 6:10pm 10.3 % 4.0-6.0 The following ranges may be used for interpretation of results: HGBA1C degree of glucose control: Greater than 8%: Action Suggested * Less than 7%: Goal of Diabetic Therapy Less than 6%: Normal Factors such as duration of diabetes, adherence to therapyand the age of the patient should also be considered inassessing the degree of blood glucose control. * High risk of developing buttermaker continuous churn complications such asretinopathy, nephropathy, neuropathy, cardiopathy, etc. Some danger of hypoglycemic reaction in Type I diabetics.Some glucose intolerant individuals and "Sub Clinical"diabetics may demonstrate HGBA1C levels in this area. [facility], [address] [place] [address] Hemoglobin A1c February 21, 2020 2:18pm 9.5 [...] glucose control. * High risk of developing half-way complications such asretinopathy, nephropathy, neuropathy, cardiopathy, etc. Some danger of hypoglycemic reaction in Type I diabetics.Some glucose intolerant individuals and "Sub Clinical"diabetics may demonstrate HGBA1C levels in this area. [facility], [address] [place] [address] Estimated Average Glucose (eAG) [facility] 2019 6:10pm 249 mg/dl An A1C of 7% - the goal of diabetic ther apy - is equivalentto an EAG of 154 mg/dl. [facility], [address] [place] [address] Estimated Average Glucose (eAG) February 21, 2020 2:18pm 226 mg/dl An A1C of 7% - the goal of diabetic therapy - is equivalentto an EAG of 154 mg/dl. [facility], [address] [place] [address] Microbiology Results Procedure Source Result Collection Date/Time Result Date/Time Result Comment Performing Site Stool Occult Blood (RODRIGO) Stool July 15, 2020 9:20am July 152019 10:52am [facility], [address] [place] [address] SARS-CoV-2 (PCR) Interpretation Naso pharyngeal No Organisms Detected July 13, 2020 10:10pm July 13, 2020 10:42pm [facility], [address] [place] [address] 10680 Diagnostic Imaging Reports Report Dictated Date/Time Dictated By Status Radiology Report May 30 0 10:22am Brian Fowler MD completed [facility] [address] [place] [address] [phone] NAME SEX PT STATUS ACCOUNT NUMBER FALGUNI HESS JR REG REF [id number] ORDERING PHYSICIAN LOCATION MEDICAL RECORD NO. Olivia Woods [id number] ATTENDING PHYSICIAN DATE OF DATE OF EXAM/TIME Olivia Woods NP 1975 05[birth year]/20932 TYPE / EXAM US Abd [...] Dt/Tm: : Total DLP = 0.00 mGy-cm : Total Radiation Dose = 0.0000 mSv Lifetime Dose: 0 mSv Health Concerns Health Concerns may be documented in an alternate section. Advance Directives Advance Directive Response Recorded Date/Time Advanced Directive No No 2019 11:11pm MOLST No July 13 020 11:11pm Advance Directives on File or in chart? No July 13, 2020 11:11pm Does Patient have a DNR? No July 13, 2020 11:11pm Healthcare Proxy Yes Nov 2019 11:11pm Health Care Proxy Name Brianne Hess July 13, 2020 11:11pm Health Care Proxy Phone Number July 13, 2020 11:11pm Living Will No February 1:19pm Chief Complaint and Reason for Visit Chief Complaint Encounter to [facility] I48.0,E78.2,E11.65,I10 EKG PAF Diabetes Diabetes R29.890,E11.40,I10,K72.90,F10.10,F19.10 PANCREATIC TUMOR ALCOHOLIC GASTRITIS,SVT,DEHYDRATION Reason for Visit Benign pancreatic t umor Diabetes mellitus type 2, uncontrolled Essential hypertension ETOH abuse Liver failure Mixed hyperlipidemia Paroxysmal A-fib Substance abuse Benign pancreatic tumor Diabetes mellitus type 2, uncontrolled Diabetic neuropathy, type II diabetes mellitus History of drug abuse Liver failure Benign pancreatic tumor Diabetes mellitus type 2, uncontrolled Diabetic neuropathy, type II diabetes mellitus Essential hypertension ETOH abuse Finger dysfunction Liver failure Substance abuse Tobacco use disorder, continuous Encounters Encounter Location(s) Ar rival/Admit Date Discharge/Depart Date Provider(s) Departed Physician/Provider Office Visit [facility] February 21, 2020 1:23pm February 21, 2020 2:45pm Olivia fernandez NP Registered Referred [facility]Laboratory February 21, 2020 2:15pm Olivia Woods NP Registered Outpatient [facility] March 06, 2020 12:25pm Olivia Woods NP Registered Referred [facility]-EKG March 06, 2020 12:28pm Olivia Woods NP Departed Physician/Provider Office Visit [facility] March 06, 2020 12:42pm March 06, 2020 1:39pm Olivia fernandez NP Departed Physician/Provider Office Visit [facility] May 28, 2020 11:49am May 28, 2020 1:01pm Olivia Woods NP Registered Referred [facility] May 28, 2020 1:18pm Olivia Woods NP Registered Referred [facility]-Ultrasound May 30, 2020 7:57am Olivia Woods NP Discharged Inpatient [facility]Intensive Care Unit ICU July 13, 2020 8:42pm July 15, 2020 5:20pm Morro Luque MD Recent Diagnosis Onset Date Benign pancreatic tumor Diabetes mellitus type 2, uncontrolled Essential hypertension ETOH abuse Liver failure Mixed hyperlipidemia Paroxysmal A-fib Substance abuse Benign pancreatic tumor Diabetes mellitus type 2, uncontrolled Diabetic neuropathy, type II diabetes mellitus History of drug abuse Liver failure Benign pancreatic tumor Diabetes mellitus type 2, uncontrolled Diabetic neuropathy, type II diabetes mellitus Essential hypertension ETOH abuse Finger dysfunction Liver failure Substance abuse Tobacco use disorder, continuous [facility] 2014 Assessments Diagnosis Onset Date Res olution Status Benign pancreatic tumor acute Diabetes mellitus type 2, uncontrolled acute Essential hypertension acute ETOH abuse acute Liver failure acute Mixed hyperlipidemia acute Paroxysmal A-fib acute Substance abuse acute Benign pancreatic tumor acute Diabetes mellitus type 2, uncontrolled acute Diabetic neuropathy, type II diabetes mellitus acute History of drug abuse acute Liver failure acute Benign pancreatic tumor acute Diabetes mellitus type 2, uncontrolled acute Diabetic neuropathy, type II diabetes mellitus acute Essential hypertension acute ETOH abuse acute Finger dysfunction acute Liver failure acute Substance abuse acute Tobacco use disorder, continuous [facility] 2014 acute Family History Relationship Condition A ge at Onset Recorded Date/Time Not Specified Alcoholism Unknown Myocardial infarction Unknown Functional Status Observation Response Jackson e Recorded Functional Status Complete [place] July 13, 2020 11:11pm Goals Goals may be documented in an alternate section. Immunizations No Immunization Information Available Mental Status Observation Response Jackson e Recorded Impairments No impairments or barriers July 13, 2020 5:39pm Medical Equipment No Medical Equipment Information available Insurance Providers Guarantor FALGUNI HESS JR Address [address] [address] Contact Info. Home Phone: Payer Policy Id Coverage Id Subscriber's Name Subscriber Id Effective Date Expiration Date BC/BS [facility] [id number] BRIANNE HESS [id number] [facility] [id number] FALGUNI HESS JR [id number] BC/BS OF [employer] [id number] BRIANNE HESS [id number] [address] [facility] [id number] FALGUNI HESS JR [id number] Self Pay Self N/A BCBS OF [employer]. [id number] BRIANNE HESS Plan of Treatment Continue to follow with endocrinology. Retinal exam. Refuses property custodian referral. Gabapentin does increased for diabetic neuropathy [...] ses referral to dietary services here at [facility]. Reports will be compliant with [...] 6 weeks, and will re-address this issue t eleazar. Patient reports that his insurance is changed, [...] with him that we will obtain f estela lipid panel. Will advise him of results [...] time that he used alcohol will obtain [facility] drug compliance panel. Will advise patient of results as they are available. Did kristina garciauss with patient importance of avoiding EtOH use if at all possible as it does turn to sugar and does make his blood sugar extremely elevated. Patient verbalizes understanding and agreement. Please disregard entered in error. Future Tests Future scheduled test information is unavailable Pending Tests Pending diagnostic test information is unavailable Future Visits Future appointment information is unavailable Referrals to Other Providers Referral information is unavailable Future Procedures Future procedure information is unavailable [...] 21, 2020 2:29pm Respiratory rate 18 /min -February 21, 2020 2:29pm Oxygen saturation by Pulse [...] 06, 2020 2:00pm BP Diastolic 70 mm[Hg] Nella 30th, 2020 2:00pm BMI (Body Mass Index) 25.7 kg/m2 March 06, 2020 2:00pm Height 67 [in_i] May 28, 2020 1:04pm Weight 163.37 [lb_av] May 28, 2020 1:04pm Body Temperature 97.9 [degF] 97.6-99.5 May 28, 2020 1:04pm Heart Rate 60 /min 60-100 May 28, 2020 1:04pm Respiratory rate 18 /min -May 28, 2020 1:04pm Oxygen saturation by Pulse [...]
--- OUTSIDE RECORDS SUMMARY | 2020-10-05 14:14 | CCD | Continuity of Care Document ---
Author Author [facility] Address [address] [place] [address] Phone Support Name Relationship Address [place] [address] Scooter Hernández [employer] [address] [place] [address] Morro Luque [employer] [address] [place] [address] Allergies, Adverse Reactions, Alerts No known allergies. [...] s marcellus dose SQ Use as Directed 10 February 24, 2020 9:09am May 28, 2020 [...] scale d ose SQ Use as Directed 10 May 28, 2020 1:16pm Sliding scale pre-parandial Metoprolol Tartrate Active 100 MG PO 2 Times Per Day 60 May 28, 2020 1:16pm Pantoprazole Active 40 MG PO Once Per Day May 28, 2020 1:16pm Pen Needle, Diabetic Active 1 EACH MC Three times a da y 100 May 28 1:17pm use one needle four times da macarena with insulin injection Thiamine Hcl (Vitamin B1) Active 100 MG PO Once Per Day 90 May 28 0 1:17pm Insulin Glargine (Basaglar Kwikpen U-100 Insulin) 100 unit/mL (3 mL) insulin pen Active 32 UNIT SQ 2 Times Per Day May 28, 2020 3:45pm Qgoqbx-Cbzppevu-Uifztgg (Creon) 12,000-3 8,000 -60,000 unit capsule,delayed release(DR/EC) [...] November 20, 2017 8:13am January 18 10:46am Clonidine Hcl Discontinued 0.1 MG PO 2 Times Per Day 60 March 25, 2012 3:43pm September 28, 2012 8:19am Metoprolol Tartrate Discontinued 50 MG PO 2 Times Per Day 30 March 25, 2012 3:4 3pm September 28, 2012 8:19am Pantoprazole Discontinued 40 MG PO Once Per Day 30 March 25, 2012 3:43pm June 21, 2012 12:23pm Folic Acid Discontinued 1 MG PO Once Per Day March 25, 2012 3:43pm March 31, 2013 9:52am Multivit With Xyi-Mz-Hawbcnxu (One Daily For Men) 0.4-600 mg-mcg tablet Discontinued 1 EACH PO Once Per Day March 25, 2012 3:43pm March 31 9:52am Insulin Glargine,Hum.rec.anlog (Lantus Solostar) Discontinued 24 U SQ Every night at bedtime March 25, 2012 3:43pm April 29, 2012 8:06am Insulin Aspart (Novolog) Discontinued 2 U SQ Three times a day 1 April 05, 2012 8:57 am March 31, 2013 9:52am Insulin Glargine,Hum.rec.anlog (Lantus Solostar) Discontinued 48 U SQ Every night at bedtime April 29, 2012 8:06am March 31, 2013 9:52am Pantoprazole Discontinued 40 MG PO Once Per Day June 21, 2012 12:23pm March 31, 2013 9:52am Azithromycin Discontinued 250 MG PO Once Per Day July 08, 2012 3:18pm August 25, 2012 [...] MG PO 2 Times Per Day March 31, 2013 9:5 2am November 18, 2013 11:08am Pantoprazole Discontinued 40 MG PO Once Per Day March 31, 2013 9:52am November 04, 2013 9:06am Folic Acid Discontinued 1 MG PO Once Per Day March 31, 2013 9:52am November 18, 2013 11:08am Multivit With Gvn-Zw-Kdgwuuxj (One Daily For Men) 0.4-600 mg-mcg tablet [...] November 182013 11:08am INFLUENZA VIRUS VACCINE (FLUVIRIN (5 ML VIAL)) Discontinued 0.5 MILLILITRE IM [...] 10 UNIT SQ Three times a day November 28, 2014 10:37am December 03, 2015 [...] Discontinued 50 MG PO Once Per Day February 20, 2016 6:44am 2016 7:39am Insulin [...] 1 EACH MC Three times a day June 11, 2016 7:24am January 01, 2017 10:06am Insulin Aspart U-100 (Novolog Flexpen) 1 00 UNIT/1 ML insulin pen Discontinued 10 UNIT SQ Three times a day December 09, 2016 10:03am January 01, 2017 10:06am Metoprolol Tartrate Discontinued 50 MG PO 2 Times Per Day January 01, 2017 10 :06am September 22, 2017 8:46am Blood Sugar Diagnostic (Ge100 Blood Gluc ose Test Strip) 1 EACH strip Discontinued 1 EACH MC Three times a day January 01, 2017 10:06am January 02, 2017 [...] 2 March 20, 2017 8:07am May 9:23am Nklwca-Ipmvfvlr-Ynglomz (Creon) 1 EACH c apsule,delayed release(DR/EC) Discontinued [...] SQ Three times a day 2 January 18, 2018 10:46am June 28, 2018 [...] day 3 July 02, 2018 9:28am January 05, 019 8:04am Insulin Lispro (Humalog Kwikpen U-100) 1 00 UNIT/1 ML insulin pen Discontinued 10 UNIT SQ Three times a day 3 July 02, 2018 9:28am February 21, 2020 1:45pm Flu Vacc [id number] 6mos Up(Pf) (Afluria Quad Syringe) 60 MCG/0.5 ML syringe Discontinued 60 MCG IM ONE TIME July 07, 2018 7:54am July 07, 2018 8:01am Metformin Discontinued 4 TAB PO Once Per Day July 07, 2018 8:14am January 05, 2019 8:06am Metformin Discontinued 4 TAB PO Once Per Day 120 July 07, 2018 8:14am February 21, 2020 1:46pm Flash Glucose Sensor (Freestyle Nas 14 Day Sensor) 1 EACH kit Discontinued 1 EACH MC ONE TIME 1 July 07, 2018 8:28am October 082018 4:11pm Flash Glucose Scanning [place] (ParasitXstalive.cn Nas 14 Day [place]) 1 EACH EACH Discontinued 1 EACH MC [...] use disorder, continuous Nov ch 2014 Active Paroxysmal A-fib Activ e History of drug abuse Active Procedures Procedure Date Performed Status Xray Chest One View July 13 6:49pm completed Xray Ribs unilat w/PA CXR- LT Novemb er 2019 6:49pm completed CT Head without contrast July 7:33pm completed CT Abd/pel w/o contrast July 9:11pm active SARS-CoV-2 (PCR) Interpretation Linda go 2019 completed Blood Culture July 13, 2020 active US Abd single organ/quadrant Septemb er 2019 8:33am completed Relevant Diagnostic Tests and/or Laboratory Data Laboratory Results Test Date/Time Result Interpretation Reference Range Result Comment Performing Site White Blood Count July 13, 2020 6:10p m 21.4 10e3/uL 4.45-10.71 [facility], [address] [place] [address] White Blood Count February 21, 2020 2:18pm 5.7 10e3/uL 4.45-10.71 [facility], [address] [place] [address] 85520 Red Blood Count July 13, 2020 6:10pm 4.99 10e6/uL 4.3-6.1 [facility], [address] [place] [address] Red Blood Count February 21, 2020 2:18pm 5.16 10e6/uL 4.3-6.1 [facility], [address] [place] [address] 45374 Hemoglobin July 13, 2020 6:10pm 13.3 g/dL [facility], [address] [place] [address] Hemoglobin February 21, 2020 2:18pm 14.2 g/dL [facility], [address] [place] [address] 16860 Hematocrit July 13, 2020 6:10pm 39.4 % 42-52 [facility], [address] [place] [address] 75440 Hematocrit February 21, 2020 2:18pm 44.2 % 42-52 [facility], [address] [place] [address] 59669 Mean Corpuscular Volume July 6:10pm 79.0 fl 80-96 [facility], [address] [place] [address] 55326 Mean Corpuscular Volume February 20 2:18pm 85.7 fl 80-96 [facility], [address] [place] [address] 49410 Mean Corpuscular Hemoglobin July 13, 2020 6:10pm 26.7 pg 27-31 [facility], [address] [place] [address] 99012 Mean Corpuscular Hemoglobin February 2:18pm 27.5 pg 27-31 [facility], [address] [place] [address] 70699 Mean Corpuscular Hemoglobin Concent July 13, 2020 6:10pm 33.8 g/dl [facility], [address] [place] [address] 25841 Mean Corpuscular Hemoglobin Concent February 21, 2020 2:18pm 32.1 g/dl 37 [facility], [address] [place] [address] 40882 Red Cell Distribution Width July 13, 2020 6:10pm 16 % 11-15 [facility], [address] [place] [address] Red Cell Distribution Width February 2:18pm 16 % 11-15 [facility], [address] [place] [address] 32802 Platelet Count July 13, 2020 6:10pm 346 10e3/ul 130-472 [facility], [address] [place] [address] Platelet Count February 21, 2020 2:18pm 307 10e3/ul 130-472 [facility], [address] [place] [address] 54451 Mean Platelet Volume July 13 020 6:10pm 9.8 fl 9.1-13.1 [facility], [address] [place] [address] Mean Platelet Volume February 21, 2020 2:18p m 9.8 fl 9.1-13.1 [facility], [address] [place] [address] 65782 Neutrophils (%) (Auto) July 13, 2020 6:10pm 86.3 % 41-77 [facility], [address] [place] [address] 64605 Neutrophils (%) (Auto) February 20 2:18pm 55.9 % 41-77 [facility], [address] [place] [address] 00369 Absolute Neutrophil July 13 6:10pm 18.5 # 1.7-7.6 [facility], [address] [place] [address] 27588 Absolute Neutrophil February 21, 2020 2:18pm 3.2 # 1.7-7.6 [facility], [address] [place] [address] 24570 Lymphocytes (%) (Auto) July 13, 2020 6:10pm 6.2 % 14-46 [facility], [address] [place] [address] 14599 Lymphocytes (%) (Auto) February 20 2:18pm 34.0 % 14-46 [facility], [address] [place] [address] 12607 Lymphocytes # (Auto) July 13 020 6:10pm 1.3 # 0.6-4.6 [facility], [address] [place] [address] 13021 Lymphocytes # (Auto) February 21, 2020 2:18p m 2.0 # 0.6-4.6 [facility], [address] [place] [address] 26462 Monocytes (%) (Auto) July 13 6:10pm 6.3 % 4-12 [facility], [address] [place] [address] 19766 Monocytes (%) (Auto) February 21, 2020 2:18p m 7.3 % 4-12 [facility], [address] [place] [address] 41191 Monocytes # July 13, 2020 6:10pm 1.3 # 0.2-1.2 [facility], [address] [place] [address] 34723 Monocytes # February 21, 2020 2:18pm 0.4 # 0.2-1.2 [facility], [address] [place] [address] 28604 Eosinophils (%) (Auto) July 13, 2020 6:10pm 0.0 % 0-7 [facility], [address] [place] [address] 45609 Eosinophils (%) (Auto) February 20 2:18pm 1.6 % 0-7 [facility], [address] [place] [address] 62558 Absolute Eosinophils (CBC) July 13, 2020 6:10pm 0.0 # 0.0-0.5 [facility], [address] [place] [address] Absolute Eosinophils (CBC) February 2:18pm 0.1 # 0.0-0.5 [facility], [address] [place] [address] 96115 Basophils (%) (Auto) July 13 6:10pm 0.1 % 0.4-1.3 [facility], [address] [place] [address] 58783 Basophils (%) (Auto) February 21, 2020 2:18p m 0.9 % 0.4-1.3 [facility], [address] [place] [address] 44197 Absolute Basophils (CBC) July 6:10pm 0.0 # 0.0-0.2 [facility], [address] [place] [address] 15504 Absolute Basophils (CBC) February 21, 2020 2:18pm 0.1 # 0.0-0.2 [facility], [address] [place] [address] 59785 Immature Granulocyte % (Auto) Novemb 2019 6:10pm 1.1 % 0-2 [facility], [address] [place] [address] 08012 Immature Granulocyte % (Auto) February 052019 2:18pm 0.3 % 0-2 [facility], [address] [place] [address] 85089 Absolute Immature Granulocyte (auto July 13, 2020 6:10pm 0.2 # 0-0.1 [facility], [address] [place] [address] Absolute Immature Granulocyte (auto February 21, 2020 2:18pm 0.0 # 0-0.1 [facility], [address] [place] [address] 13747 Add Manual Differential July 6:10pm Manual diff added [facility], [address] [place] [address] 77418 Add Manual Differential February 20 2:18pm No [facility], [address] [place] [address] 31716 Differential Total Cells Counted Nov ember 2019 6:10pm 100 [facility], [address] [place] [address] 15786 Neutrophils (Manual) July 13 020 6:10pm 85 % 41-77 [facility], [address] [place] [address] Lymphocytes (Manual) July 13 020 6:10pm 14 % 14-46 [facility], [address] [place] [address] 36770 Monocytes (Manual) July 13 0 6:10pm 1 % 4-12 [facility], [address] [place] [address] 61578 Platelet Estimate July 13, 2020 6:10p m Appears normal NORMAL [facility], [address] [place] [address] 46360 RBC Morphology 2 July 13, 2020 6:10pm Appears normal NORMAL [facility], [address] [place] [address] 21055 Prothrombin Time July 13, 2020 6:10pm 11.0 SECONDS 9.6-12.3 [facility], [address] [place] [address] 17333 Prothrombin Time February 21, 2020 2:18pm 9.6 SECONDS 9.6-12.3 [facility], [address] [place] [address] 06036 INR International Normalized Ratio N ovember 2019 6:10pm 1.0 0.9-1.1 THE INR IS OPERATIONALLY DEFINED FOR SUSAN SH PLASMA FROMPATIENTS STABILIZED ON ORAL ANTICOAGULANTS. ROUTINE ANTICOAGULANT THERAPY 2.0-3.0RECURRENT SYSTEMIC EMBOLISM/HEART VALVE REPLACEMENT 2.5-3.5 [facility], [address] [place] [address] 57489 INR International Normalized Ratio [facility] 2019 2:18pm 0.9 0.9-1.1 THE INR IS OPERATIONALLY DEFINED FOR SUSAN SH PLASMA FROMPATIENTS STABILIZED ON ORAL ANTICOAGULANTS. ROUTINE ANTICOAGULANT THERAPY 2.0-3.0RECURRENT SYSTEMIC EMBOLISM/HEART VALVE REPLACEMENT 2.5-3.5 [facility], [address] [place] [address] 96221 Partial Thromboplastin Time - [place] N 2019 6:10pm 22.8 SECONDS 22.7-31.6 [facility], [address] [place] [address] 98290 Arterial Blood pH (Temp corrected) N 2019 7:10pm 7.50 7.35-7.45 [facility], [address] [place] [address] 15978 Arterial Blood pCO2 (Temp correct) N 2019 7:10pm 38.1 mmHg 32.0-46.0 [facility], [address] [place] [address] 36226 Arterial Blood pO2 (Temp corrected) July 13, 2020 7:10pm 77.3 mmHg 74.0-100.0 [facility], [address] [place] [address] 69301 Arterial Bld O2 Saturation (Measur) July 13, 2020 7:10pm 96.0 % 92.0-96.0 [facility], [address] [place] [address] 51236 Arterial Blood HCO3 July 13 7:10pm 29.9 mmol/L 21.0-29.0 [facility], [address] [place] [address] 06155 Arterial Blood Base Excess July 13, 2020 7:10pm 6.4 -2.0-2.0 [facility], [address] [place] [address] 45053 Arterial Blood Total CO2 July 7:10pm 31.1 mmol/L 22.0-30.0 [facility], [address] [place] [address] 58776 FiO2 July 13, 2020 7:10pm 21 % [facility], [address] [place] [address] 47656 Arterial/Alveolar Ratio July 7:10pm 0.7 0.8-1.0 [facility], [address] [place] [address] 70637 Blood Gas Puncture Site July 7:10pm Left radial artery [facility], [address] [place] [address] 43695 Tay Test July 13, 2020 7:10pm Performed [facility], [address] [place] [address] 11380 Blood Urea Nitrogen July 13 6:10pm 64 mg/dL 05-30 [facility], [address] [place] [address] 35054 Blood Urea Nitrogen May 28, 2020 1:30pm 19 mg/dL 05-30 [facility], [address] [place] [address] 00988 Blood Urea Nitrogen February 21, 2020 2:18pm 12 mg/dL 05-30 [facility], [address] [place] [address] 65638 Sodium Level July 13, 2020 6:10pm 121 mmol/L 132-146 Repeated by: Varsha Salazar 07/13/20 9793.Result Confirmation: 121 mmol/L [facility], [address] [place] [address] 39541 Sodium Level May 28, 2020 1:30pm 134 mmol/L 132-146 [facility], [address] [place] [address] 68020 Sodium Level February 21, 2020 2:18pm 137 mmol/L 132-146 [facility], [address] [place] [address] 49158 Potassium Level July 13, 2020 6:10pm 3.1 mmol/L 3.5-5.5 [facility], [address] [place] [address] 18109 Potassium Level May 28, 2020 1:30p m 4.2 mmol/L 3.5-5.5 [facility], [address] [place] [address] 23218 Potassium Level February 21, 2020 2:18pm 4.2 mmol/L 3.5-5.5 [facility], [address] [place] [address] 00893 Chloride Level July 13, 2020 6:10pm 76 mmol/l 99-109 Called to EYAL KNOX @ 1841 by Varsha Salazar. Results read back. Repeated by: Varsha Salazar 07/13/20 5032.Result Confirmation: 76 mmol/l [facility], [address] [place] [address] 36759 Chloride Level May 28, 2020 1:30pm 103 mmol/l 99-109 [facility], [address] [place] [address] 62463 Chloride Level February 21, 2020 2:18pm 102 mmol/l 99-109 [facility], [address] [place] [address] 43018 Carbon Dioxide Level July 13 6:10pm 32 mmol/l 20-31 [facility], [address] [place] [address] 12628 Carbon Dioxide Level May 28, 2020 1:30pm 25 mmol/l 20-31 [facility], [address] [place] [address] 02496 Carbon Dioxide Level February 21, 2020 2:18p m 27 mmol/l 20-31 [facility], [address] [place] [address] 93632 Anion Gap July 13, 2020 6:10pm 16 mmol/l 8-16 [facility], [address] [place] [address] 21102 Anion Gap May 28, 2020 1:30pm 10 mmol/l 8-16 [facility], [address] [place] [address] 16052 Anion Gap February 21, 2020 2:18pm 12 mmol/l 8-16 [facility], [address] [place] [address] 35138 Glucose Level July 13, 2020 6:10pm 300 mg/dL 74-106 [facility], [address] [place] [address] 43417 Glucose Level May 28, 2020 1:30pm 238 mg/dL 74-106 [facility], [address] [place] [address] 86540 Glucose Level February 21, 2020 2:18pm 322 mg/dL 74-106 [facility], [address] [place] [address] 53763 Creatinine July 13, 2020 6:10pm 1.5 mg/dL 0.5-1.1 [facility], [address] [place] [address] 71346 Creatinine May 28, 2020 1:30pm 0.9 mg/dL 0.5-1.1 [facility], [address] [place] [address] 28457 Creatinine February 21, 2020 2:18pm 1.1 mg/dL 0.5-1.1 [facility], [address] [place] [address] 52596 Glomerular Filtration Rate Calc Novodalys mber 2019 6:10pm 51 ml/min ABOVE 60 [facility], [address] [place] [address] 58564 Glomerular Filtration Rate Calc May 1:30pm Greater than 60 ml/min ABOVE 60 [facility], [address] [place] [address] 26670 Glomerular Filtration Rate Calc February 21, 2020 2:18pm Greater than 60 ml/min ABOVE 60 [facility], [address] [place] [address] 55768 Gamma Glutamyl Transpeptidase February 052019 2:18pm 118 U/L Repeated by: Whitney Ramirez 02/21/20 1629.Result Confirmation: 116 U/L [facility], [address] [place] [address] 95870 Alanine Aminotransferase (ALT/SGPT) July 13, 2020 6:10pm 35 U/L 10-49 [facility], [address] [place] [address] Alanine Aminotransferase (ALT/SGPT) May 28, 2020 1:30pm 43 U/L 10-49 [facility], [address] [place] [address] Alanine Aminotransferase (ALT/SGPT) February 21, 2020 2:18pm 81 U/L 10-49 [facility], [address] [place] [address] 28368 Aspartate Amino Transf (AST/SGOT) No vember 2019 6:10pm 19 U/L 0-33 [facility], [address] [place] [address] 03803 Aspartate Amino Transf (AST/SGOT) Se pt2019 1:30pm 14 U/L 0-33 [facility], [address] [place] [address] 87360 Aspartate Amino Transf (AST/SGOT) Ju ne 2019 2:18pm 79 U/L 0-33 [facility], [address] [place] [address] 76871 Alkaline Phosphatase July 13 6:10pm 116 U/L 45-129 [facility], [address] [place] [address] 09945 Alkaline Phosphatase May 28, 2020 1:30pm 106 U/L 45-129 [facility], [address] [place] [address] 24377 Alkaline Phosphatase February 21, 2020 2:18p m 122 U/L 45-129 [facility], [address] [place] [address] 33747 Amylase Level July 13, 2020 6:10pm 36 U/L 30-118 [facility], [address] [place] [address] 09056 Lipase July 13, 2020 6:10pm 27 U/L 73-393 [facility], [address] [place] [address] 70354 Lipase February 21, 2020 2:18pm 27 U/L 73-393 [facility], [address] [place] [address] 73501 Calcium Level July 13, 2020 6:10pm 8.9 mg/dL 8.5-10.1 [facility], [address] [place] [address] 18382 Calcium Level May 28, 2020 1:30pm 9.4 mg/dL 8.5-10.1 [facility], [address] [place] [address] 98863 Calcium Level February 21, 2020 2:18pm 8.8 mg/dL 8.5-10.1 [facility], [address] [place] [address] 54955 Total Bilirubin July 13, 2020 6:10pm 1.0 mg/dL 0.3-1.2 [facility], [address] [place] [address] 20621 Total Bilirubin May 28, 2020 1:30p m 0.3 mg/dL 0.3-1.2 [facility], [address] [place] [address] 70399 Total Bilirubin February 21, 2020 2:18pm 0.4 mg/dL 0.3-1.2 [facility], [address] [place] [address] 33140 Albumin July 13, 2020 6:10pm 3.6 g/dL 3.2-4.8 [facility], [address] [place] [address] [id number] Albumin May 28, 2020 1:30pm 3.7 g/dL 3.2-4.8 [facility], [address] [place] [address] 08732 Albumin February 21, 2020 2:18pm 4.0 g/dL 3.2-4.8 [facility], [address] [place] [address] 60732 Serum Total Protein July 13 6:10pm 7.4 g/dL 5.7-8.2 [facility], [address] [place] [address] [id number] Serum Total Protein May 28, 2020 1:30pm 7.2 g/dL 5.7-8.2 [facility], [address] [place] [address] 75258 Serum Total Protein February 21, 2020 2:18pm 7.4 g/dL 5.7-8.2 [facility], [address] [place] [address] 26065 Lactic Acid Level July 13, 2020 6:10p m 2.5 mmol/L 0.5-2.2 Called to EYAL KNOX @ 5857 by Varsha Salazar. Results read back. [facility], [address] [place] [address] 65286 Magnesium Level July 13, 2020 6:10pm 2.9 mg/dL 1.3-2.7 [facility], [address] [place] [address] 35014 Magnesium Level May 28, 2020 1:30p m 2.3 mg/dL 1.3-2.7 [facility], [address] [place] [address] 47705 Free Thyroxine February 21, 2020 2:18pm 1.31 ng/dL 0.89-1.76 [facility], [address] [place] [address] 96571 Thyroid Stimulating Hormone (TSH) Ju 2019 2:18pm 0.57 uIU/mL 0.35-5.50 [facility], [address] [place] [address] 54241 Thyroid Stimulating Hormone (TSH) Se pt2019 1:30pm 1.29 uIU/mL 0.35-5.50 [facility], [address] [place] [address] [id number] Urine Drug Screen (T) May 1:30pm See scanned report [facility] Biointact without Calcium Septem 2019 1:30pm 20 pg/mL Interpretive Guide Intact PTH Calcium -------Normal Parathyroid Normal NormalHypoparathyroidism Low or Low Normal LowHyperparathyroidism Primary Normal or High High Secondary High Normal or Low Tertiary High HighNon- Parathyroid Hypercalcemia Low or Low Normal HighTHIS TEST WAS PERFORMED AT:[id number] [id number] MERATI,MD [facility] Urine Random Creatinine February 20 2:19pm 195.0 mg/dL THERE IS NO ESTABLISHED RANGE FOR RANDOM URINE CREATININE [facility], [address] [address] Urine Microalbumin February 21, 2020 2:19pm 27.5 mg/L 0.0-29.9 [facility], [address] [place] [address] Urine Microalbumin/Creatinine Ratio February 21, 2020 2:19pm 14.1 ug/mg 0.0-30.0 [facility], [address] [place] [address] Hemoglobin A1c July 13, 2020 6:10pm 10.3 [...] glucose control. * High risk of developing fpc complications such asretinopathy, nephropathy, neuropathy, cardiopathy, etc. Some danger of hypoglycemic reaction in Type I diabetics.Some glucose intolerant individuals and "Sub Clinical"diabetics may demonstrate HGBA1C levels in this area. [facility], [address] [place] [address] Hemoglobin A1c February 21, 2020 2:18pm 9.5 [...] glucose control. * High risk of developing fpc complications such asretinopathy, nephropathy, neuropathy, cardiopathy, etc. Some danger of hypoglycemic reaction in Type I diabetics.Some glucose intolerant individuals and "Sub Clinical"diabetics may demonstrate HGBA1C levels in this area. [facility], [address] [place] [address] Estimated Average Glucose (eAG) [facility] 2019 6:10pm 249 mg/dl An A1C of 7% - the goal of diabetic ther apy - is equivalentto an EAG of 154 mg/dl. [facility], [address] [place] [address] Estimated Average Glucose (eAG) February 21, 2020 2:18pm 226 mg/dl An A1C of 7% - the goal of diabetic therapy - is equivalentto an EAG of 154 mg/dl. [facility], [address] [facility] [address] Microbiology Results Procedure Source Result Collection Date/Time Result Date/Time Result Comment Performing Site SARS-CoV-2 (PCR) Interpretation Naso pharyngeal No Organisms Detected July 13, 2020 10:10pm July 13, 2020 10:42pm [facility], [address] [facility] [address] Diagnostic Imaging Reports Report Dictated Date/Time Dictated By Status Radiology Report May 30 0 10:22am Brian Fowelr MD completed [id number] [place] [address] [phone] NAME SEX PT STATUS ACCOUNT NUMBER FALGUNI HESS JR REG REF [id number] ORDERING PHYSICIAN LOCATION MEDICAL RECORD NO. Olivia Woods [id number] ATTENDING PHYSICIAN DATE OF DATE OF EXAM/TIME [...] CC: Olivia Woods; Brian Fowler MD Techn: SUSANST Trans Dt/Tm: Trans by: DT Prt Dt/Tm: : Total DLP = 0.00 mGy-cm : Total Radiation Dose = 0.0000 mSv Lifetime Dose: 0 mSv Health Concerns Health Concerns may be documented in an alternate section. Advance Directives Advance Directive Response Recorded Date/Time Advanced Directive No No 2019 5:57pm MOLST No February 20, 2020 1:19pm Advance Directives on File or in chart? No February 20, 2020 1:19pm Does Patient have a DNR? No July 13, 2020 5:57pm Healthcare Proxy Yes Jul 5:57pm Health Care Proxy Name Brianne Hess February 20, 2020 1:19pm Health Care Proxy Phone Number [phone] February 20, 2020 1:19pm Living Will No February 1:19pm Chief Complaint and Reason for Visit Chief Complaint Encounter to [facility] I48.0,E78.2,E11.65,I10 EKG PAF Diabetes Diabetes R29.890,E11.40,I10,K72.90,F10.10,F19.10 PANCREATIC [...] Discharge/Depart Date Provider(s) Departed Physician/Provider Office Visit [facility] February 21, 2020 1:23pm February 21, 2020 2:45pm Olivia fernandez NP Registered Referred [facility]Laboratory February 21, 2020 2:15pm Olivia Woods NP Registered Outpatient [facility] March 06, 2020 12:25pm Olivia Woods NP Registered Referred [facility]EKG March 06, 2020 12:28pm Olivia Woods NP Departed Physician/Provider Office Visit [facility] March 06, 2020 12:42pm March 06, 2020 1:39pm Olivia fernandez NP Departed Physician/Provider Office Visit [facility] May 28, 2020 11:49am May 28, 2020 1:01pm Olivia Woods NP Registered Referred [facility]Laboratory May 28, 2020 1:18pm Olivia Woods NP Registered Referred [facility]-Ultrasound May 30, 2020 7:57am Olivia Woods NP Admitted Inpatient [facility]Intensive Care Unit ICU July 13, 2020 8:42pm Morro Luque MD Recent Diagnosis Onset Date [...] failure Substance abuse Tobacco use disorder, continuous Mar 2014 Assessments Diagnosis Onset Date Res olution [...] Substance abuse acute Tobacco use disorder, continuous Mar 2014 acute Family History Relationship Condition A [...] Insurance Providers Guarantor FALGUNI HESS JR Address [address] [address] Contact Info. Home Phone: Payer Policy Id Coverage Id Subscriber's Name Subscriber Id Effective Date Expiration Date BC/BS [facility] [id number] BRIANNE HESS [id number] [facility] [id number] FALGUNI HESS JR [id number] BC/BS OF [employer] [id number] BRIANNE HESS [id number] [address] [facility] [id number] FALGUNI HESS JR [id number] Self Pay Self N/A BCBS OF [employer] [id number] BRIANNE HESS Plan of Treatment Continue to follow with endocrinology. Retinal exam. Refuses manager of tax referral. Gabapentin does increased for diabetic neuropathy [...] ses referral to dietary services here at [facility]. Reports will be compliant with dietary [...] with him that we will obtain f nolaing lipid panel. Will advise him of results [...] of his insulin for approximately 24 hours. Satn morrow is currently been taking a long-acting [...] time that he used alcohol will obtain Me at[facility] drug compliance panel. Will advise patient of [...] of Observation Current every day smoker July 6:20pm Observation Status Observation Response Jackson e of Response Smoking Status Current every day smoker July 13, 2020 6:20pm Alcohol Use Yes July 13, 2020 6:20pm [...] 06, 2020 2:00pm Respiratory rate 18 /min 12-24 March 06, 2020 2:00pm Oxygen saturation by Pulse [...] 28, 2020 1:04pm Height 69 [in_i] July 13, 2020 5:57pm Weight 167.00 [lb_av] July 13, 2020 5:57pm Body Temperature 99.2 [degF] 97.6-99.5 July 13, 2020 6:33pm Heart Rate 144 /min 60-1 July 13, 2020 5:39pm Respiratory rate 18 /min 08-30July 13, 2020 5:39pm Oxygen saturation by Pulse oximetry 97 % 95- 100 July 13, 2020 5:39pm BP Systolic 100 mm[Hg] July 13, 2020 5:39pm BP Diastolic 70 mm[Hg] July 13, 2020 5:39pm
--- OUTSIDE RECORDS SUMMARY | 2020-10-05 14:16 | CCD ---
Author Author [facility] Organization [facility] Address Unknown Phone Unavailable Care Team Providers Care Counter Help Name Role Phone Home Winslow MD Unavailable Unavailable Home Winslow MD Unavailable Unavailable Home Winslow MD Unavailable Unavailable Home Winslow MD Unavailable Unavailable Home Winslow MD Unavailable Unavailable Home Winslow MD Unavailable Unavailable Home Winslow MD Unavailable Unavailable Home Winslow MD Unavailable Unavailable Home Winslow MD Unavailable Unavailable Home Winslow MD Unavailable Unavailable Home Winslow MD Unavailable Unavailable Jonn Ramos JR, PA-C Unavailable Unavailable Wineman JR, R William PA-C Unavailable Unavailable Wineman JR, R William PA-C Unavailable Unavailable Wineman JR, R William PA-C Unavailable Unavailable Wineman JR, R William PA-C Unavailable Unavailable Wineman JR, R William PA-C Unavailable Unavailable Wineman JR, R William PA-C Unavailable Unavailable Wineman JR, R William PA-C Unavailable Unavailable Wineman JR, R William PA-C Unavailable Unavailable Wineman JR, R William PA-C Unavailable Unavailable OUEIDA, ZAHER Unavailable Unavailable OUEIDA, ZAHER Unavailable Unavailable OUEIDA, ZAHER Unavailable Unavailable OUEIDA, ZAHER Unavailable Unavailable Braulio STAUFFER MD Unavailable Unavailable XIOMY, Braulio DEY MD Unavailable Unavailable Braulio STAUFFER MD Unavailable Unavailable COOK, B REENA FIBER DESIGNER Unavailable Unavailable COOK, B REENA FIBER DESIGNER Unavailable Unavailable COOK, B REENA FIBER DESIGNER Unavailable Unavailable COOK, B REENA FIBER DESIGNER Unavailable Unavailable COOK, B REENA FIBER DESIGNER Unavailable Unavailable COOK, B REENA FIBER DESIGNER Unavailable Unavailable COOK, B REENA FIBER DESIGNER Unavailable Unavailable COOK, B REENA FIBER DESIGNER Unavailable Unavailable COOK, B REENA FIBER DESIGNER Unavailable Unavailable COOK, B REENA FIBER DESIGNER Unavailable Unavailable COOK, B REENA FIBER DESIGNER Unavailable Unavailable COOK, B REENA FIBER DESIGNER Unavailable Unavailable COOK, B REENA FIBER DESIGNER Unavailable Unavailable COOK, B REENA FIBER DESIGNER Unavailable Unavailable COOK, B REENA FIBER DESIGNER Unavailable Unavailable COOK, B REENA FIBER DESIGNER Unavailable Unavailable COOK, B REENA FIBER DESIGNER Unavailable Unavailable COOK, B REENA FIBER DESIGNER Unavailable Unavailable COOK, B REENA FIBER DESIGNER Unavailable Unavailable COOK, B REENA FIBER DESIGNER Unavailable Unavailable COOK, B REENA FIBER DESIGNER Unavailable Unavailable COOK, B REENA FIBER DESIGNER Unavailable Unavailable COOK, B REENA FIBER DESIGNER Unavailable Unavailable COOK, B REENA FIBER DESIGNER Unavailable Unavailable COOK, B REENA FIBER DESIGNER Unavailable Unavailable COOK, B REENA FIBER DESIGNER Unavailable Unavailable COOK, B REENA FIBER DESIGNER Unavailable Unavailable COOK, B REENA FIBER DESIGNER Unavailable Unavailable COOK, B REENA FIBER DESIGNER Unavailable Unavailable COOK, B REENA FIBER DESIGNER Unavailable Unavailable COOK, B REENA FIBER DESIGNER Unavailable Unavailable COOK, B REENA FIBER DESIGNER Unavailable Unavailable COOK, B REENA FIBER DESIGNER Unavailable Unavailable COOK, B REENA FIBER DESIGNER Unavailable Unavailable COOK, B REENA FIBER DESIGNER Unavailable Unavailable COOK, B REENA FIBER DESIGNER Unavailable Unavailable COOK, B REENA FIBER DESIGNER Unavailable Unavailable COOK, B REENA FIBER DESIGNER Unavailable Unavailable COOK, B REENA FIBER DESIGNER Unavailable Unavailable COOK, B REENA FIBER DESIGNER Unavailable Unavailable COOK, B REENA FIBER DESIGNER Unavailable Unavailable COOK, B REENA FIBER DESIGNER Unavailable Unavailable COOK, B REENA FIBER DESIGNER Unavailable Unavailable COOK, B REENA FIBER DESIGNER Unavailable Unavailable COOK, B REENA FIBER DESIGNER Unavailable Unavailable COOK, B REENA FIBER DESIGNER Unavailable Unavailable COOK, B REENA FIBER DESIGNER Unavailable Unavailable COOK, B REENA FIBER DESIGNER Unavailable Unavailable COOK, B REENA FIBER DESIGNER Unavailable Unavailable COOK, B REENA FIBER DESIGNER Unavailable Unavailable COOK, B REENA FIBER DESIGNER Unavailable Unavailable COOK, B REENA FIBER DESIGNER Unavailable Unavailable COOK, B REENA FIBER DESIGNER Unavailable Unavailable COOK, B REENA FIBER DESIGNER Unavailable Unavailable COOK, B REENA FIBER DESIGNER Unavailable Unavailable COOK, B REENA FIBER DESIGNER Unavailable Unavailable COOK, B REENA FIBER DESIGNER Unavailable Unavailable COOK, B REENA FIBER DESIGNER Unavailable Unavailable COOK, B REENA FIBER DESIGNER Unavailable Unavailable COOK, B REENA FIBER DESIGNER Unavailable Unavailable COOK, B REENA FIBER DESIGNER Unavailable Unavailable COOK, B REENA FIBER DESIGNER Unavailable Unavailable COOK, B REENA FIBER DESIGNER Unavailable Unavailable COOK, B REENA FIBER DESIGNER Unavailable Unavailable Shruti Hernández MD Unavailable Unavailable Amy, R Mark MD Unavailable Unavailable Amy, R Mark MD Unavailable Unavailable Amy, R Mark MD Unavailable Unavailable Amy, R Mark MD Unavailable Unavailable Amy, R Mark MD Unavailable Unavailable Amy, R Mark MD Unavailable Unavailable Amy, R Mark MD Unavailable Unavailable Amy, R Mark MD Unavailable Unavailable Amy, R Mark MD Unavailable Unavailable Amy, R Mark MD Unavailable Unavailable Amy, R Mark MD Unavailable Unavailable Amy, R Mark MD Unavailable Unavailable Amy, R Mark MD Unavailable Unavailable Amy, R Mark MD Unavailable Unavailable Amy, R Mark MD Unavailable Unavailable Amy, R Mark MD Unavailable Unavailable Amy, R Mark MD Unavailable Unavailable Amy, R Mark MD Unavailable Unavailable Amy, R Mark MD Unavailable Unavailable Amy, R Mark MD Unavailable Unavailable Amy, R Mark MD Unavailable Unavailable Amy, R Mark MD Unavailable Unavailable Amy, R Mark MD Unavailable Unavailable Amy, R Mark MD Unavailable Unavailable Amy, R Mark MD Unavailable Unavailable Amy, R Mark MD Unavailable Unavailable Amy, R Mark MD Unavailable Unavailable Amy, R Mark MD Unavailable Unavailable Amy, R Mark MD Unavailable Unavailable Amy, R Mark MD Unavailable Unavailable Amy, R Mark MD Unavailable Unavailable Amy, R Mark MD Unavailable Unavailable Amy, R Mark MD Unavailable Unavailable Amy, R Mark MD Unavailable Unavailable Amy, R Mark MD Unavailable Unavailable Amy, R Mark MD Unavailable Unavailable Amy, R Mark MD Unavailable Unavailable Amy, R Mark MD Unavailable Unavailable Amy, R Mark MD Unavailable Unavailable Amy, R Mark MD Unavailable Unavailable Amy, R Mark MD Unavailable Unavailable Amy, R Mark MD Unavailable Unavailable Amy, R Mark MD Unavailable Unavailable Amy, R Mark MD Unavailable Unavailable Amy, R Mark MD Unavailable Unavailable Amy, R Mark MD Unavailable Unavailable Amy, R Mark MD Unavailable Unavailable Amy, R Mark MD Unavailable Unavailable Amy, R Mark MD Unavailable Unavailable Amy, R Mark MD Unavailable Unavailable Amy, R Mark MD Unavailable Unavailable Amy, R Mark MD Unavailable Unavailable Amy, R Mark MD Unavailable Unavailable Amy, R Mark MD Unavailable Unavailable Amy, R Mark MD Unavailable Unavailable Amy, R Mark MD Unavailable Unavailable Amy, R Mark MD Unavailable Unavailable Amy, R Mark MD Unavailable Unavailable Amy, R Mark MD Unavailable Unavailable Amy, R Mark MD Unavailable Unavailable Amy, R Mark Unavailable Unavailable Amy, R Mark MD Unavailable Unavailable Amy, R Mark MD Unavailable Unavailable Amy, R Mark MD Unavailable Unavailable Amy, R Mark MD Unavailable Unavailable Amy, R Mark MD Unavailable Unavailable Amy, R Mark MD Unavailable Unavailable Amy, R Mark MD Unavailable Unavailable Amy, R Mark MD Unavailable Unavailable Amy, R Mark MD Unavailable Unavailable Amy, R Mark MD Unavailable Unavailable Amy, R Mark MD Unavailable Unavailable Amy, R Mark MD Unavailable Unavailable Amy, R Mark MD Unavailable Unavailable Amy, R Mark MD Unavailable Unavailable Amy, Jonn Mark MD Unavailable Unavailable LIMON, VJ MTZ Unavailable Unavailable LMION, VJ MTZ Unavailable Unavailable LIMON, VJ MTZ Unavailable Unavailable LIMON, VJ MTZ Unavailable Unavailable LIMON, VJ MTZ Unavailable Unavailable LIMON, VJ MTZ Unavailable Unavailable LIMON, VJ MTZ Unavailable Unavailable LIMON, VJ MTZ Unavailable Unavailable LIMON, VJ MTZ Unavailable Unavailable KOPIDLANSKY, Jonn QUIROGA TELEPHONE ANSWERER-PHYSICIAN OFFICE ASSISTANT-C Unavailable Unava ilable KOPIDLANSKY, Jonn QUIROGA TELEPHONE ANSWERER-PHYSICIAN OFFICE ASSISTANT-C Unavailable Unava ilable KOPIDLANSKY, Jonn QUIROGA TELEPHONE ANSWERER-PHYSICIAN OFFICE ASSISTANT-C Unavailable Unava ilable KOPIDLANSKY, Jonn QUIROGA TELEPHONE ANSWERER-PHYSICIAN OFFICE ASSISTANT-C Unavailable Unava ilable KOPIDLANSKY, Jonn QUIROGA TELEPHONE ANSWERER-PHYSICIAN OFFICE ASSISTANT-C Unavailable Unava ilable KOPIDLANSKY, Jonn QUIROGA APRN-PHYSICIAN OFFICE ASSISTANT-C Unavailable Unava ilable KOPIDLANSKY, Jonn QUIROGA APRN-PHYSICIAN OFFICE ASSISTANT-C Unavailable Unava ilable KOPIDLANSKY, Jonn QUIROGA TELEPHONE ANSWERER-PHYSICIAN OFFICE ASSISTANT-C Unavailable Unava ilable KOPIDLANSKY, Jonn QUIROGA APRN-PHYSICIAN OFFICE ASSISTANT-C Unavailable Unava ilable KOPIDLANSKY, Jonn QUIROGA TELEPHONE ANSWERER-PHYSICIAN OFFICE ASSISTANT-C Unavailable Unava ilable KOPIDLANSKY, Jonn QUIROGA TELEPHONE ANSWERER-PHYSICIAN OFFICE ASSISTANT-C Unavailable Unava ilable KOPIDLANSKY, Jonn QUIROGA APRN-PHYSICIAN OFFICE ASSISTANT-C Unavailable Unava ilable KOPIDLANSKY, Jonn QUIROGA APRN-PHYSICIAN OFFICE ASSISTANT-C Unavailable Unava ilable KOPIDLANSKY, Jonn QUIROGA TELEPHONE ANSWERER-PHYSICIAN OFFICE ASSISTANT-C Unavailable Unava ilable KOPIDLANSKY, Jonn QUIROGA TELEPHONE ANSWERER-PHYSICIAN OFFICE ASSISTANT-C Unavailable Unava ilable KOPIDLANSKY, Jonn QUIROGA TELEPHONE ANSWERER-PHYSICIAN OFFICE ASSISTANT-C Unavailable Unava ilable KOPIDLANSKY, Jonn QUIROGA TELEPHONE ANSWERER-PHYSICIAN OFFICE ASSISTANT-C Unavailable Unava ilable KOPIDLANSKY, Jonn QUIROGA TELEPHONE ANSWERER-PHYSICIAN OFFICE ASSISTANT-C Unavailable Unava ilable KOPIDLANSKY, Jonn QUIROGA TELEPHONE ANSWERER-PHYSICIAN OFFICE ASSISTANT-C Unavailable Unava ilable KOPIDLANSKY, Jonn QUIROGA TELEPHONE ANSWERER-PHYSICIAN OFFICE ASSISTANT-C Unavailable Unava ilable KOPIDLANSKY, Jonn LUNDBERGIE TELEPHONE ANSWERER-PHYSICIAN OFFICE ASSISTANT-C Unavailable Unava ilable KOPIDLANSKY, Jonn LUNDBERGIE TELEPHONE ANSWERER-PHYSICIAN OFFICE ASSISTANT-C Unavailable Unava ilable Rohit, Marshall Unavailable Unavailable Rohit, Marshall Unavailable Unavailable Rohit, Marshall Unavailable Unavailable Rohit, Marshall Unavailable Unavailable Rohit, Marshall Unavailable Unavailable Rohit, Marshall Unavailable Unavailable Rohit, Marshall Unavailable Unavailable Rohit, Marshall Unavailable Unavailable Rohit, Marshall Unavailable Unavailable Rohit, Marshall Unavailable Unavailable Rohit, Marshall Unavailable Unavailable Rohit, Marshall Unavailable Unavailable Rohit, Marshall Unavailable Unavailable Rohit, Marshall Unavailable Unavailable Rohit, Marshall Unavailable Unavailable Rohit, Marshall Unavailable Unavailable Rohit, Marshall Unavailable Unavailable Rohit, Marshall Unavailable Unavailable Rohit, Marshall Unavailable Unavailable Rohit, Marshall Unavailable Unavailable LETTIERE, A SHRUTI PA Unavailable Unavailable LETTIERE, A SHRUTI PA Unavailable Unavailable LETTIERE, A SHRUTI PA Unavailable Unavailable LETTIERE, A SHRUTI PA Unavailable Unavailable LETTIERE, A SHRUTI PA Unavailable Unavailable LETTIERE, A SHRUTI PA Unavailable Unavailable LETTIERE, A SHRUTI PA Unavailable Unavailable LETTIERE, A SHRUTI PA Unavailable Unavailable LETTIERE, A SHRUTI PA Unavailable Unavailable LETTIERE, A SHRUTI PA Unavailable Unavailable LETTIERE, A SHRUTI PA Unavailable Unavailable LETTIERE, A SHRUTI PA Unavailable Unavailable LETTIERE, A SHRUTI PA Unavailable Unavailable LETTIERE, A SHRUTI PA Unavailable Unavailable LETTIERE, A SHRUTI PA Unavailable Unavailable LETTIERE, A SHRUTI PA Unavailable Unavailable LETTIERE, A SHRUTI PA Unavailable Unavailable LETTIERE, A SHRUTI PA Unavailable Unavailable LETTIERE, A SHRUTI PA Unavailable Unavailable LETTIERE, A SHRUTI PA Unavailable Unavailable LETTIERE, A SHRUTI PA Unavailable Unavailable LETTIERE, A SHRUTI PA Unavailable Unavailable LETTIERE, A SHRUTI PA Unavailable Unavailable LETTIERE, A SHRUTI PA Unavailable Unavailable LETTIERE, A SHRUTI PA Unavailable Unavailable LETTIERE, A SHRUTI PA Unavailable Unavailable LETTIERE, A SHRUTI PA Unavailable Unavailable LETTIERE, A SHRUTI PA Unavailable Unavailable LETTIERE, A SHRUTI PA Unavailable Unavailable Ericka Garza MD Unavailable Unavailable Ericka Garza MD Unavailable Unavailable Ericka Garza MD Unavailable Unavailable Ericka Garza MD Unavailable Unavailable Ericka Garza MD Unavailable Unavailable Ericka Garza MD Unavailable Unavailable Ericka Garza MD Unavailable Unavailable Ericka Garza MD Unavailable Unavailable Ericka Garza MD Unavailable Unavailable Ericka Garza MD Unavailable Unavailable Ericka Garza MD Unavailable Unavailable Ericka Garza MD Unavailable Unavailable ANGEL, PRATISHTHA Unavailable Unavailable MORRO LUQUE MD Unavailable Unavailable MORRO LUQUE MD Unavailable Unavailable MORRO LUQUE MD Unavailable Unavailable MORRO LUQUE MD Unavailable Unavailable MORRO LUQUE MD Unavailable Unavailable MORRO LUQUE MD Unavailable Unavailable MORRO LUQUE MD Unavailable Unavailable Billy, Juwan Gifford MD Unavailable Unavailable Billy, Juwan Gifford MD Unavailable Unavailable Billy, Juwan Gifford MD Unavailable Unavailable Billy, Juwan Gifford MD Unavailable Unavailable Billy, Juwan Gifford MD Unavailable Unavailable Billy, Juwan Gifford MD Unavailable Unavailable Billy, Juwan Gifford MD Unavailable Unavailable Billy, Juwan Gifford MD Unavailable Unavailable Billy, Juwan Gifford MD Unavailable Unavailable Billy, Juwan Gifford MD Unavailable Unavailable Billy, Juwan Gifford MD Unavailable Unavailable Billy, Juwan Gifford MD Unavailable Unavailable Billy, Juwan Gifford MD Unavailable Unavailable Billy, Juwan Gifford MD Unavailable Unavailable Billy, Juwan Gifford MD Unavailable Unavailable Billy, Juwan Gifford MD Unavailable Unavailable Billy, Juwan Gifford MD Unavailable Unavailable Billy, Juwan Gifford MD Unavailable Unavailable Billy, Juwan Gifford MD Unavailable Unavailable Billy, Juwan Gifford MD Unavailable Unavailable Billy, Juwan Gifford MD Unavailable Unavailable Billy, Juwan Gifford MD Unavailable Unavailable Billy, Juwan Gifford MD Unavailable Unavailable Billy, Juwan Gifford MD Unavailable Unavailable Billy, Juwan Gifford MD Unavailable Unavailable Billy, Juwan Gifford MD Unavailable Unavailable Billy, Juwan Gifford MD Unavailable Unavailable Billy, Juwan Gifford MD Unavailable Unavailable Billy, Juwan Gifford MD Unavailable Unavailable Billy, Juwan Gifford MD Unavailable Unavailable Billy, Juwan Gifford MD Unavailable Unavailable Billy, Juwan Gifford MD Unavailable Unavailable Billy, Juwan Gifford MD Unavailable Unavailable Billy, Juwan Gifford MD Unavailable Unavailable Billy, Juwan Gifford MD Unavailable Unavailable Billy, Juwan Gifford MD Unavailable Unavailable Billy, Juwan Gifford MD Unavailable Unavailable Billy, Juwan Gifford MD Unavailable Unavailable Billy, Juwan Gifford MD Unavailable Unavailable Billy, Juwan Gifford MD Unavailable Unavailable Billy, Juwan Gifford MD Unavailable Unavailable Billy, Juwan Gifford MD Unavailable Unavailable Billy, Juwan Gifford MD Unavailable Unavailable Billy, Juwan Gifford MD Unavailable Unavailable Billy, Juwan Gifford MD Unavailable Unavailable Billy, Juwan Gifford MD Unavailable Unavailable Billy, Juwan Gifford MD Unavailable Unavailable MARSHA VELEZ MD Unavailable Unavailable NETTA, MARSHA MD Unavailable Unavailable NETTA, MARSHA MD Unavailable Unavailable NETTA, MARSHA MD Unavailable Unavailable NETTA, MARSHA MD Unavailable Unavailable NETTA, MARSHA MD Unavailable Unavailable NETTA, MARSHA MD Unavailable Unavailable NETTA, MARSHA MD Unavailable Unavailable NETTA, MARSHA MD Unavailable Unavailable NETTA, MARSHA MD Unavailable Unavailable NETTA, MARSHA MD Unavailable Unavailable NETTA, MARSHA MD Unavailable Unavailable NETTA, MARSHA MD Unavailable Unavailable NETTA, MARSHA MD Unavailable Unavailable NETTA, MARSHA MD Unavailable Unavailable NETTA, MARSHA MD Unavailable Unavailable NETTA, MARSHA MD Unavailable Unavailable NETTA, MARSHA MD Unavailable Unavailable NETTA, MARSHA MD Unavailable Unavailable NETTA, MARSHA MD Unavailable Unavailable NETTA, MARSHA MD Unavailable Unavailable NETTA, MARSHA MD Unavailable Unavailable NETTA, MARSHA MD Unavailable Unavailable NETTA, MARSHA MD Unavailable Unavailable NETTA, MARSHA MD Unavailable Unavailable NETTA, MARSHA MD Unavailable Unavailable NETTA, MARSHA MD Unavailable Unavailable NETTA, MARSHA MD Unavailable Unavailable NETTA, MARSHA MD Unavailable Unavailable NETTA, MARSHA MD Unavailable Unavailable NETTA, MARSHA MD Unavailable Unavailable NETTA, MARSHA MD Unavailable Unavailable NETTA, MARSHA MD Unavailable Unavailable NETTA, MASRHA MD Unavailable Unavailable NETTA, MARSHA MD Unavailable Unavailable NETTA, MARSHA MD Unavailable Unavailable NETTA, MARSHA MD Unavailable Unavailable NETTA, MARSHA MD Unavailable Unavailable NETTA, MARSHA MD Unavailable Unavailable NETTA, MARSHA MD Unavailable Unavailable NETTA, MARSHA MD Unavailable Unavailable NETTA, MARSHA MD Unavailable Unavailable NETTA, MARSHA MD Unavailable Unavailable NETTA, MARSHA MD Unavailable Unavailable NETTA, MARSHA MD Unavailable Unavailable NETTA, MARSHA MD Unavailable Unavailable NETTA, MARSHA MD Unavailable Unavailable NETTA, MARSHA MD Unavailable Unavailable NETTA, MARSHA MD Unavailable Unavailable NETTA, MARSHA MD Unavailable Unavailable NETTA, MARSHA MD Unavailable Unavailable NETTA, MARSHA MD Unavailable Unavailable Re-disclosure Warning The records that you are about to access may contain information from federally-assisted alcohol or drug abuse programs. If such information is present, then the following federally mandated warning applies: This information has been disclosed to you from records protected by federal confidentiality rules (42 CFR part 2). The federal rules prohibit you from making any further disclosure of this information unless further disclosure is expressly permitted by the written consent of the person to whom it pertains or as otherwise permitted by 42 CFR part 2. A general authorization for the release of medical or other information is NOT sufficient for this purpose. The Federal rules restrict any use of the information to criminally investigate or prosecute any alcohol or drug abuse patient.The records that you are about to access may contain highly sensitive health information, the redisclosure of which is protected by Article 27-F of the [place] State Public Health law. If you continue you may have access to information: Regarding HIV / AIDS; Provided by facilities licensed or operated by the [facility] Office of Mental Health; or Provided by the [facility] Office for People With Developmental Disabilities. If such information is present, then the following [facility] mandated warning applies: This information has been disclosed to you from confidential records which are protected by state law. State law prohibits you from making any further disclosure of this information without the specific written consent of the person to whom it pertains, or as otherwise permitted by law. Any unauthorized further disclosure in violation of state law may result in a fine or skilled nursing sentence or both. A general authorization for the release of medical or other information is NOT sufficient authorization for further disc losure. Allergies and Adverse Reactions Type Description Substance Reaction Status Data Source(s ) Drug Class NO KNOWN ALLERGIES NO KNOWN ALLERGIES [facility] Drug allergy No Known Drug Allergies No Known Drug Allergies [facility] Family History Family Member Name Family Member Gender Family Member Status Date o f Status Description Data Source(s) Unknown Condition [facility] Unknown Condition [facility] Unknown Condition [facility] Unknown Condition [facility] Unknown Condition [facility] Unknown Condition [facility] Unknown Condition [facility] Unknown Condition [facility] Unknown Condition [facility] Unknown Condition [facility] Unknown Condition [facility] Unknown Condition [facility] Unknown Male Problem [facility] ([facility]) Encounters Encounter Providers Location Date Indications Data Source(s ) Outpatient Attender: VJ LIMON MD 10/31/2020 12:00:[address] [facility] Outpatient Attender: Balta Billy MD Physical Therapy 08/08/2020 0 7:00:00 AM EST [facility] ([facility]) Outpatient Attender: MARSHA VELEZ MD 07/27/2020 11:14:00 AM EST HTN,F17.209,I48.0,E78.2,I10,E11.65,E1.40,Z79.4 [facility] HTN,F17.209,I48.0,E78.2,I10,E11.65,E1.40 ,Z79.4 Outpatient Attender: MARSHA VELEZ MDReferrer: MARSHA VELEZ MD 07/25/2020 11:13:00 AM EST - 07/25/2020 12:16:00 PM EST [facility] Outpatient Attender: Marshall Bee [id number] 07/17/2020 09:48:[address] [facility] Inpatient Attender: ALEX Roa er: NOÉ ANGELAttender: Fer Winslow MDAttender: TIBURCIO STAUFFER MDAdmitter: Fer Winslow MDReferrer: Fer Winslow MD [id number] 07/15/2020 12:00:00 AM EST - 07/18/2020 12:23:00 PM EST Gastrointestinal hemorrhage, unspecified [facility] Gastrointestinal hemorrhage, unspecified Patient discharged. Inpatient Attender: MORRO Fragoso nder: Shruti Hernández MDAdmitter: MORRO LUQUE MDConsultant: William Ramos JRConsultant: Adan Garza MD 07/13/2020 08:42:00 PM EST - 07/15/2020 05:20:00 PM EST ALCOHOLIC GASTRITIS,SVT,DEHYDRATION [facility] ALCOHOLIC GASTRITIS,SVT,DEHYDRATION Patient discharged. Outpatient Attender: OLIVIA WOODS APRN-KAE-Channing 05/30/2020 08:57:00 AM EDT PANCREATIC TUMOR [facility] PANCREATIC TUMOR Outpatient Attender: OLIVIA WOODS APRN-KAE-Channing 05/28/2020 02:18:00 PM EDT R29.890,E11.40,I10,K72.90,F10.10,F19.10 [facility] R29.890,E11.40,I10,K72.90,F10.10,F19.10 Outpatient Attender: OLIVIA LYNNE APRN-FNP-CReferrer: OLIVIA WOODS APRN-PHYSICIAN OFFICE ASSISTANT-[place]anning 05/28/2020 12:49:00 PM EDT - 05/28/2020 02:01:00 PM EDT [facility] Outpatient Attender: REENA PINA NP Physical Therapy 05/22/2020 0 3:15:00 PM EDT [facility] ([facility]) Outpatient Attender: SHRUTI Lo marco 03/12/2020 12:15:00 PM EDT [facility] ([facility]) Outpatient Attender: OLIVIA LYNNE [id number]: OLIVIA BURROWSPHYSICIAN OFFICE ASSISTANT-C 03/06/2020 01:42:00 PM EDT - 03/06/2020 02:39:00 PM EDT [facility] Outpatient Attender: OLIVIA BURROWSPHYSICIAN OFFICE ASSISTANT-C 03/06/2020 01:28:00 PM EDT PAF [facility] PAF Outpatient Attender: OLIVIA WOODS APRN-PHYSICIAN OFFICE ASSISTANT-C 02/21/2020 03:15:00 PM EDT I48.0,E78.2,E11.65,I10 [facility] I48.0,E78.2,E11.65,I10 Outpatient Attender: OLIVIA LYNNE APRN-FNP-CReferrer: OLIVIA PERALESP-Channing 02/21/2020 02:23:00 PM EDT - 02/21/2020 03:45:00 PM EDT [facility] Outpatient 01/17/2020 05:49:00 AM EDT [facility] Outpatient 08/28/2019 06:47:00 PM EST [facility] Outpatient Attender: Mark Reyes MD 03/08/2019 02:08:00 PM EDT [facility] Functional Status Immunizations Vaccine Date Status Description Data Source(s) New in 2011. IIV4 07/17/2020 12:00:00 AM EST completed In [facility] IM Pres Free (0.5 mL dose) 07/17/2020 [facility] ospital Medications Medication Brand Name Start Date Product Form Dose Route Admi nistrative Instructions Pharmacy Instructions Status Indications Reaction Description Data Source(s) Insulin Glargine (Semglee Pen U-100 Insulin) 100 unit/mL (3 mL) insulin pen 07/20/2020 07:00:43 AM EST 32 UNIT active [facility] insulin lispro (HumaLOG) injection MEDIU M DOSE EATING INSULIN patients 1-16 Units [id number] 07/18/2020 12:00:00 PM EST U Subcutaneous active 1-16 Units, Subcutaneous, Three Times Daily-With Meals, First dose on Thu07/18/20 at 1200, For 30 days
Nursing MUST open the 'SQ Insulin Dosing Charts' Sidebar Report, or, the Patient Summary or Summary Report within the ED.
[facility] Medication administered onsite Diclofenac Sodium 0.01 MG/MG Topical Gel Diclofenac Sodium (VOLTAREN) 1 % gel 2 g Diclofenac Sodium (VOLTAREN) 1 % gel 2 g 07/18/2020 09:30:00 AM EST 2 g Topical completed 2 g, Topical, Once, Thu07/18/20 at 0930, For 1 dose
Apply to mid back where it hurts
[facility] Medication administered onsite Cyclobenzaprine hydrochloride 10 MG Oral Tablet cyclobenzaprine (FLEXERIL) tablet 10 mg cyclobenzaprine (FLEXERIL) tablet 10 mg 07/18/2020 09:30:00 AM EST 10 mg Oral completed 10 mg, Oral, O nce, Thu07/18/20 at 0930, For 1 dose [facility] Medication administered onsite pantoprazole 40 MG Delayed Release Oral Tablet pantoprazole (PROTONIX) EC tablet 40 mg pantoprazole (PROTONIX) EC tablet 40 mg 07/18/2020 09:00:[address] 40 mg Oral active 40 mg, Ora l, Daily Standard, First dose on Thu07/18/20 at 0900, For 30 days
Do not crush or chew
[facility] Medication administered onsite pantoprazole 40 MG Delayed Release Oral Tablet Pantoprazole Sodium 40 MG Oral Tablet Delayed Release (PROTONIX) Pantoprazole Sodium 40 MG Oral Tablet De layed Release (PROTONIX) 07/18/2020 12:00:00 AM EST 40 mg Oral active Take 1 tablet by mouth daily [facility] Cyclobenzaprine hydrochloride 10 MG Oral Tablet Cyclobenzaprine HCl 10 MG Oral Tablet (FLEXERIL) Cyclobenzaprine HCl 10 MG Oral Tablet (FLEXERIL) 07/18 12:00:00 AM EST 10 mg Oral active Take 1 tablet by mouth Three times daily as needed for Muscle spasms [facility] Diclofenac Sodium 0.01 MG/MG Topical Gel Diclofenac Sodium 1 % Transdermal Gel (VOLTAREN) Diclofenac Sodium 1 % Transdermal Gel (VOLTAREN) 07/18 12:00:00 AM EST 2 g Topical active Apply 2 g topica lly daily [facility] sennosides, SNF 8.6 MG Oral Tablet Sennosides 8.6 MG O ral Tablet (SENOKOT) Sennosides 8.6 MG Oral Tablet (SENOKOT) 07/18/2020 12:00:00 AM EST 8.6 mg Oral active Take 1 tablet by elvin th daily as needed for Constipation [facility] ferrous sulfate 325 MG Oral Tablet Ferrous Sulfate 325 (65 Fe) MG Oral Tablet Ferrous Sulfate 325 (65 Fe) MG Oral Tablet 07/18/2020 12:00:00 AM EST 325 mg Oral active Take 1 tablet by elvin th daily with breakfast [facility] Insulin Glargine 100 UNT/ML Injectable S olution insulin glargine (LANTUS) injection 10 Units insulin glargine (LANTUS) injection 10 Units 0 10:00:00 PM EST 10 U Subcutaneous active 10 Units, Subcutaneous, Nightly, First dose (after last modification) on Thu07/17/20 at 2200, For 7 days
For blood glucose less than 70 mg/dL: follow hypoglycemia protocol ( H-09) and notify provider.For blood glucose values between 70 mg/dL and 100 mg/dL at bedtime: provide snack (15 grams of carbohydrates) with some protein. Administer FULL DOSE of insulin glargine (LANTUS) after snack.Record snack in I&O's. For blood glucose more than 400 mg/dL: notify provider
[facility] Medication administered onsite Insulin Glargine 100 UNT/ML Injectable S olution insulin glargine (LANTUS) injection 10 Units insulin glargine (LANTUS) injection 10 Units 0 09:00:00 PM EST 10 U Subcutaneous aborted 10 Units, Subcutaneous, 2 Times Daily, First dose (after last modification) on Thu07/16/20 at 2100, For 58 doses
For blood glucose less than 70 mg/dL: follow hypoglycemia protocol ( H-09) and notify provider.For blood glucose values between 70 mg/dL and 100 mg/dL at bedtime: provide snack (15 grams of carbohydrates) with some protein. Administer FULL DOSE of insulin glargine (LANTUS) after snack.Record snack in I&O's. For blood glucose more than 400 mg/dL: notify provider
[facility] Medication administered onsite POLYETHYLENE GLYCOL 3350 59 MG/ML / Pota ssium Chloride 0.01 MEQ/ML / Sodium Bicarbonate 0.02 MEQ/ML / Sodium Chloride 0.025 MEQ/ML / sodium sulfate 0.04 MEQ/ML Oral Solution polyethylene glycol (GoLYTELY,NuLYTELY) suspension 4,000 mL polyethylene glycol (GoLYTELY,NuLYTELY) suspension 4,0 00 mL 07/16/2020 09:00:00 PM EST 4000 mL Oral completed 4,000 mL, Oral, Once, Thu07/16/20 at 2100, For 1 dose [facility] Medication administered onsite lidocaine (LIDODERM) 5 % patch 2 patch [id number] 0 10:45:00 AM EST 2 {patch} Transdermal active 2 patch, T ransdermal, Every 24 hours Standard (Daily), First dose on Thu07/16/20 at 1045, For 30 days
Apply to back pain12 hours on - 12 hours off
Time to remove patch: 9:00 PM [facility] Medication administered onsite Oxycodone Hydrochloride 5 MG Oral Tablet oxyCODONE (ROXICODONE) immediate release tablet 5 mg oxyCODONE (ROXICODONE) immediate release tablet 5 mg 07/16/2020 10:33:53 AM EST 5 mg Oral active 5 mg, Oral, Every 4 hours PRN, Moderate Pain (Pain Scale Score 4-6), Starting Thu07/16/20 at 1033, For 3 days
Oxycodone immediate release is limited to 10 mg per dose. Higher doses ( only) require Pain Service consultation and approval.
[facility] Medication administered onsite Folic Acid 1 MG Oral Tablet folic acid (FOLVITE) table t 1 mg folic acid (FOLVITE) tablet 1 mg 07/16/2020 09:00:00 AM EST 1 mg Oral active 1 mg, Oral, Daily Standard, First dose on Thu07/16/20 at 0900, For 30 days [facility] Medication administered onsite Thiamine 100 MG Oral Tablet thiamine (B-1) tablet 100 mg thiamine (B-1) tablet 100 mg 07/16/2020 09:00:00 AM EST 100 mg Oral active 100 mg, Oral, Daily Standard, First dose on Thu07/16/20 at 0900, For 30 days [facility] Medication administered onsite Ramipril 5 MG Oral Capsule ramipril (ALTACE) capsule 5 mg ramipril (ALTACE) capsule 5 mg 07/16/2020 09:00:00 AM EST 5 mg Oral activ e 5 mg, Oral, Daily Standard, First dose on Thu07/16/20 at 0900, For 30 days
Check vital signs before administering
[facility] Medication administered onsite morphine sulfate (PF) injection 1 mg [id number] 07/16/2020 06:00: 00 AM EST 1 mg Intravenous completed 1 mg, In travenous, Once, Thu07/16/20 at 0600, For 1 dose [facility] Medication administered onsite gabapentin 300 MG Oral Capsule gabapentin (NEURONTIN) capsule 600 mg gabapentin (NEURONTIN) capsule 600 mg 07/15/2020 10:00:00 PM EST 600 mg Oral active 600 mg, Oral, Three Times D aily Standard, First dose on 07/15/20 at 2200, For 30 days [facility] Medication administered onsite Metoprolol Tartrate 50 MG Oral Tablet metoprolol (LOPR ESSOR) tablet 50 mg metoprolol (LOPRESSOR) tablet 50 mg 07/15/2020 10:00:00 PM EST 50 mg Oral active 50 mg, Oral, 2 Times Daily, First dose on 07/15/20 at 2200, For 30 days [facility] Medication administered onsite pantoprazole 4 MG/ML Injectable Solution pantoprazole (PROTONIX) injection 80 mg pantoprazole (PROTONIX) injection 80 mg 07/15/2020 09:00:00 PM EST 80 mg Intravenous completed 80 mg, Intrav enous, Once, 07/15/20 at 2100, For 1 dose [facility] Medication administered onsite pantoprazole (PROTONIX) 0.4 mg/mL in sodium chloride 0.9 % 2 50 mL infusion 07/15/2020 09:00:00 PM EST 8 mg/h Intravenous aborted 8 mg/hr (20 mL/hr), Intravenous, at 20 mL/hr, Continuous, Starting 07/15/20 at 2100, For 30 days
Indication: Active GI bleed [facility] Medication administered onsite octreotide (SANDOSTATIN) 5 mcg/mL in sodium chloride 0.9 % 2 50 mL infusion 07/15/2020 09:00:00 PM EST 50 ug/h Intravenous aborted 50 mcg/hr (10 mL/hr), Intravenous, at 10 mL/hr, Continuous, Starting 07/15/20 at 2100, For 30 days [facility] Medication administered onsite insulin lispro (HUMALOG) injection LOW DOSE NPO INSULI N patients 1-5 Units [id number] 07/15/2020 08:30:00 PM EST U Subcutaneous aborted 1-5 Units, Subcutaneous, Every 4 hours, First dose on 07/15/20 at 2030, For 30 days
Nursing MUST open the 'SQ Insulin Dosing Charts' Sidebar Report, or, the Patient Summary or Summary Report within the ED.
[facility] Medication administered onsite dextrose 5 %-0.9 % sodium chloride infusion [id number] 07/15/2020 08:30:00 PM EST Intravenous aborted at 1 00 mL/hr, Intravenous, Continuous, Starting 07/15/20 at 2029, For 30 days [facility] Medication administered onsite Glucose 0.417 MG/MG Oral Gel glucose (GLUTOSE) 40 % or al gel 15 g glucose (GLUTOSE) 40 % oral gel 15 g 07/15/2020 08:25:47 PM EST 15 g Oral active 15 g, Oral, PRN, Low blood s ugar, for gluose 55-69 mg/dl and able to take PO, Starting 07/15/20 at 2024, For 30 days [facility] Medication administered onsite Glucagon 1 MG Injection glucagon (human recombinant) ( GLUCAGEN) injection 1 mg glucagon (human recombinant) (GLUCAGEN) injection 1 mg 07/15/2020 08:25:47 PM EST 1 mg Intramuscular active 1 mg, Intramuscular, PRN, for glucose <55 without IV access, Starting 07/15/20 at 2024, For 30 days [facility] Medication administered onsite dextrose 50 % IV solution 25 mL [id number] 07/15/2020 08:25:[address] 25 mL Intravenous active 25 mL, Intrav enous, PRN, Other, blood glucose <55, Starting 07/15/20 at 2024, For 30 days
Not for midline administration.
[facility] Medication administered onsite ondansetron (ZOFRAN) injection 4 mg [id number] 07/15/2020 08:24:2 4 PM EST 4 mg Intravenous active 4 mg, In travenous, Every 8 hours PRN, Nausea, Vomiting, Starting 07/15/20 at 2024, For 30 days [facility] Medication administered onsite morphine sulfate (PF) injection 2 mg [id number] 07/15/2020 08:19: 09 PM EST 2 mg Intravenous active 2 mg, In travenous, Every 4 hours PRN, Severe Pain (Pain Scale Score 7-10), Starting 07/15/20 at 2019, For 3 days [facility] Medication administered onsite influenza vac split quad (FLUARIX) injection 6 months and ol deysi 0.5 mL [id number] 07/15/2020 07:31:01 PM EST 0.5 mL Intramuscular complet ed 0.5 mL, Intramuscular, Give Now, Starting Rodney 07/15/20 at 1931, For 1 dose [facility] Medication administered onsite Ramipril 5 MG Oral Capsule Ramipril 07/14/2020 12:15:18 AM EST 5 MG active [facility] Ramipril 5 MG Oral Capsule Ramipril 07/14/2020 12:15:18 AM EST 5 MG [facility] Pen Needle, Diabetic 07/14/2020 12:15:09 AM EST [address] [facility] Pen Needle, Diabetic 07/14/2020 12:15:09 AM EST [address] [facility] Insulin Glargine Insulin Glargine (Basag lar Kwikpen U-100 Insulin) 100 unit/mL (3 mL) insulin pen Insulin Glargine (Basaglar Kwikpen U-100 Insulin) 100 unit/mL (3 mL) insulin pen 05/28/2020 04:45:29 PM EDT 32 UNIT ac [facility] Insulin Glargine Insulin Glargine (Basag lar Kwikpen U-100 Insulin) 100 unit/mL (3 mL) insulin pen Insulin Glargine (Basaglar Kwikpen U-100 Insulin) 100 unit/mL (3 mL) insulin pen 05/28/2020 04:45:29 PM EDT 32 UNIT ac [facility] Insulin Glargine Insulin Glargine (Basag lar Kwikpen U-100 Insulin) 100 unit/mL (3 mL) insulin pen Insulin Glargine (Basaglar Kwikpen U-100 Insulin) 100 unit/mL (3 mL) insulin pen 05/28/2020 04:45:29 PM EDT 32 UNIT co mpleted [facility] Thiamine 100 MG Oral Tablet Thiamine Hcl (Vitamin B1) Thiami ne Hcl (Vitamin B1) 05/28/2020 02:17:06 PM EDT 100 MG active [facility] Thiamine 100 MG Oral Tablet Thiamine Hcl (Vitamin B1) Thiami ne Hcl (Vitamin B1) 05/28/2020 02:17:06 PM EDT 100 MG active [facility] Thiamine 100 MG Oral Tablet Thiamine Hcl (Vitamin B1) Thiami ne Hcl (Vitamin B1) 05/28/2020 02:17:06 PM EDT 100 MG active [facility] Pen Needle, Diabetic 05/28/2020 02:17:01 PM EDT 1 EACH active [facility] Pen Needle, Diabetic 05/28/2020 02:17:01 PM EDT 1 EACH completed [facility] Pen Needle, Diabetic 05/28/2020 02:17:01 PM EDT 1 EACH completed [facility] pantoprazole 40 MG Delayed Release Oral Tablet Pantoprazole Pantoprazole 05/28/2020 02:16:56 PM EDT 40 MG active [facility] pantoprazole 40 MG Delayed Release Oral Tablet Pantoprazole Pantoprazole 05/28/2020 02:16:56 PM EDT 40 MG active [facility] pantoprazole 40 MG Delayed Release Oral Tablet Pantoprazole Pantoprazole 05/28/2020 02:16:56 PM EDT 40 MG active [facility] Metoprolol Tartrate 100 MG Oral Tablet Metoprolol Tartrate 0 05/28/2020 02:16:43 PM EDT 100 MG active [facility] Metoprolol Tartrate 100 MG Oral Tablet Metoprolol Tartrate 0 05/28/2020 02:16:43 PM EDT 100 MG active [facility] Metoprolol Tartrate 100 MG Oral Tablet Metoprolol Tartrate 0 05/28/2020 02:16:43 PM EDT 100 MG active [facility] Insulin Lispro (Admelog U-100 Insulin Lispro) 100 unit/mL so lution 05/28/2020 02:16:27 PM EDT 1 sliding scale dose active [facility] Insulin Lispro (Admelog U-100 Insulin Lispro) 100 unit/mL so lution 05/28/2020 02:16:27 PM EDT 1 sliding scale dose active [facility] Insulin Lispro (Admelog U-100 Insulin Lispro) 100 unit/mL so lution 05/28/2020 02:16:27 PM EDT 1 sliding scale dose active [facility] 3 ML Insulin Glargine 100 UNT/ML Pen Inj juan Insulin Glargine (Lantus Solostar U-100 Insulin) 100 unit/mL (3 mL) insulin pen Insulin Glargine (Lantus Solostar U-100 Insulin) 100 unit/mL (3 mL) insulin pen 05/28/2020 02:14:54 PM EDT 32 UNIT completed [facility] 3 ML Insulin Glargine 100 UNT/ML Pen Inj juan Insulin Glargine (Lantus Solostar U-100 Insulin) 100 unit/mL (3 mL) insulin pen Insulin Glargine (Lantus Solostar U-100 Insulin) 100 unit/mL (3 mL) insulin pen 05/28/2020 02:14:54 PM EDT 32 UNIT completed [facility] 3 ML Insulin Glargine 100 UNT/ML Pen Inj juan Insulin Glargine (Lantus Solostar U-100 Insulin) 100 unit/mL (3 mL) insulin pen Insulin Glargine (Lantus Solostar U-100 Insulin) 100 unit/mL (3 mL) insulin pen 05/28/2020 02:14:54 PM EDT 32 UNIT completed [facility] Insulin Syr/Ndl U100 Half Hiram (Bd Insul in Syringe Half Unit) 0.3 mL 31 gauge x 5/16" syringe 05/28/2020 02:14:19 PM EDT 0 act [facility] Insulin Syr/Ndl U100 Half Hiram (Bd Insul in Syringe Half Unit) 0.3 mL 31 gauge x 5/16" syringe 05/28/2020 02:14:19 PM EDT 0 act [facility] Insulin Syr/Ndl U100 Half Hiram (Bd Insul in Syringe Half Unit) 0.3 mL 31 gauge x 5/16" syringe 05/28/2020 02:14:19 PM EDT 0 act rhett [facility] gabapentin 400 MG Oral Capsule Gabapentin Gabapentin 2019 02:13:17 PM EDT 600 MG [facility] gabapentin 400 MG Oral Capsule Gabapentin Gabapentin 2019 02:13:17 PM EDT 600 MG [facility] gabapentin 400 MG Oral Capsule Gabapentin Gabapentin 2019 02:13:17 PM EDT 600 MG [facility] Folic Acid 1 MG Oral Tablet Folic Acid 05/28/2020 02:13:10 PM EDT 1 MG [facility] Folic Acid 1 MG Oral Tablet Folic Acid 05/28/2020 02:13:10 PM EDT 1 MG [facility] Folic Acid 1 MG Oral Tablet Folic Acid 05/28/2020 02:13:10 PM EDT 1 MG [facility] Blood Sugar Diagnostic (Ge100 Blood Glucose Test Strip) stri p 05/28/2020 02:13:04 PM EDT 1 EACH [facility] Blood Sugar Diagnostic (Ge100 Blood Glucose Test Strip) stri p 05/28/2020 02:13:04 PM EDT 1 EACH [facility] Blood Sugar Diagnostic (Ge100 Blood Glucose Test Strip) stri p 05/28/2020 02:13:04 PM EDT 1 EACH [facility] atorvastatin 80 MG Oral Tablet Atorvastatin Atorvastatin 05/28/2020 02:12:57 PM EDT 80 MG [facility] atorvastatin 80 MG Oral Tablet Atorvastatin Atorvastatin 05/28/2020 02:12:57 PM EDT 80 MG [facility] atorvastatin 80 MG Oral Tablet Atorvastatin Atorvastatin 05/28/2020 02:12:57 PM EDT 80 MG [facility] Aspirin 81 MG Delayed Release Oral Tablet Aspirin 05/28/2020 0 2:12:53 PM EDT 81 MG [facility] Aspirin 81 MG Delayed Release Oral Tablet Aspirin 05/28/2020 0 2:12:53 PM EDT 81 MG [facility] Aspirin 81 MG Delayed Release Oral Tablet Aspirin 05/28/2020 0 2:12:53 PM EDT 81 MG [facility] 3 ML Insulin Glargine 100 UNT/ML Pen Inj juan Insulin Glargine (Lantus Solostar U-100 Insulin) 100 unit/mL (3 mL) insulin pen Insulin Glargine (Lantus Solostar U-100 Insulin) 100 unit/mL (3 mL) insulin pen 05/28/2020 01:18:13 PM EDT 32 UNIT completed [facility] 3 ML Insulin Glargine 100 UNT/ML Pen Inj juan Insulin Glargine (Lantus Solostar U-100 Insulin) 100 unit/mL (3 mL) insulin pen Insulin Glargine (Lantus Solostar U-100 Insulin) 100 unit/mL (3 mL) insulin pen 05/28/2020 01:18:13 PM EDT 32 UNIT completed [facility] 3 ML Insulin Glargine 100 UNT/ML Pen Inj juan Insulin Glargine (Lantus Solostar U-100 Insulin) 100 unit/mL (3 mL) insulin pen Insulin Glargine (Lantus Solostar U-100 Insulin) 100 unit/mL (3 mL) insulin pen 05/28/2020 01:18:13 PM EDT 32 UNIT completed [facility] 3 ML Insulin Glargine 100 UNT/ML Pen Inj juan Insulin Glargine (Lantus Solostar U-100 Insulin) 100 unit/mL (3 mL) insulin pen Insulin Glargine (Lantus Solostar U-100 Insulin) 100 unit/mL (3 mL) insulin pen 05/28/2020 01:18:13 PM EDT 32 UNIT completed [facility] Blood-Glucose Meter 03/22/2020 08:18:17 AM EDT 1 EACH active [facility] Blood-Glucose Meter 03/22/2020 08:18:17 AM EDT 1 EACH active [facility] Blood-Glucose Meter 03/22/2020 08:18:17 AM EDT 1 EACH active [facility] Blood-Glucose Meter 03/22/2020 08:18:17 AM EDT 1 EACH active [facility] PPD- TB Intradermal Test 03/12/2020 12:00:00 AM EDT completed [facility] ([facility], [facility]) Medication administered onsite Insulin Glargine Insulin Glargine (Basag lar Kwikpen U-100 Insulin) 100 unit/mL (3 mL) insulin pen Insulin Glargine (Basaglar Kwikpen U-100 Insulin) 100 unit/mL (3 mL) insulin pen 03/08/2020 07:15:03 AM EDT 45 UNIT co mpleted [facility] Insulin Glargine Insulin Glargine (Basag lar Kwikpen U-100 Insulin) 100 unit/mL (3 mL) insulin pen Insulin Glargine (Basaglar Kwikpen U-100 Insulin) 100 unit/mL (3 mL) insulin pen 03/08/2020 07:15:03 AM EDT 45 UNIT co mpleted [facility] Insulin Glargine Insulin Glargine (Basag lar Kwikpen U-100 Insulin) 100 unit/mL (3 mL) insulin pen Insulin Glargine (Basaglar Kwikpen U-100 Insulin) 100 unit/mL (3 mL) insulin pen 03/08/2020 07:15:03 AM EDT 45 UNIT co mpleted [facility] Insulin Glargine Insulin Glargine (Basag lar Kwikpen U-100 Insulin) 100 unit/mL (3 mL) insulin pen Insulin Glargine (Basaglar Kwikpen U-100 Insulin) 100 unit/mL (3 mL) insulin pen 03/08/2020 07:15:03 AM EDT 45 UNIT co mpleted [facility] Insulin Glargine Insulin Glargine (Basag lar Kwikpen U-100 Insulin) 100 unit/mL (3 mL) insulin pen Insulin Glargine (Basaglar Kwikpen U-100 Insulin) 100 unit/mL (3 mL) insulin pen 03/08/2020 07:13:48 AM EDT 35 UNIT co mpleted [facility] Insulin Glargine Insulin Glargine (Basag lar Kwikpen U-100 Insulin) 100 unit/mL (3 mL) insulin pen Insulin Glargine (Basaglar Kwikpen U-100 Insulin) 100 unit/mL (3 mL) insulin pen 03/08/2020 07:13:48 AM EDT 35 UNIT co mpleted [facility] Insulin Glargine Insulin Glargine (Basag lar Kwikpen U-100 Insulin) 100 unit/mL (3 mL) insulin pen Insulin Glargine (Basaglar Kwikpen U-100 Insulin) 100 unit/mL (3 mL) insulin pen 03/08/2020 07:13:48 AM EDT 35 UNIT co mpleted [facility] Insulin Glargine Insulin Glargine (Basag lar Kwikpen U-100 Insulin) 100 unit/mL (3 mL) insulin pen Insulin Glargine (Basaglar Kwikpen U-100 Insulin) 100 unit/mL (3 mL) insulin pen 03/08/2020 07:13:48 AM EDT 35 UNIT co mpleted [facility] gabapentin 400 MG Oral Capsule Gabapentin Gabapentin 2019 02:29:16 PM EDT 400 MG active [facility] gabapentin 400 MG Oral Capsule Gabapentin Gabapentin 2019 02:29:16 PM EDT 400 MG completed [facility] gabapentin 400 MG Oral Capsule Gabapentin Gabapentin 2019 02:29:16 PM EDT 400 MG completed [facility] gabapentin 400 MG Oral Capsule Gabapentin Gabapentin 2019 02:29:16 PM EDT 400 MG active [facility] gabapentin 400 MG Oral Capsule Gabapentin Gabapentin 2019 02:29:16 PM EDT 400 MG completed [facility] Insulin Glargine Insulin Glargine (Basag lar Kwikpen U-100 Insulin) 100 unit/mL (3 mL) insulin pen Insulin Glargine (Basaglar Kwikpen U-100 Insulin) 100 unit/mL (3 mL) insulin pen 02/24/2020 10:13:21 AM EDT 35 UNIT co mpleted [facility] Insulin Glargine Insulin Glargine (Basag lar Kwikpen U-100 Insulin) 100 unit/mL (3 mL) insulin pen Insulin Glargine (Basaglar Kwikpen U-100 Insulin) 100 unit/mL (3 mL) insulin pen 02/24/2020 10:13:21 AM EDT 35 UNIT co mpleted [facility] Insulin Glargine Insulin Glargine (Basag lar Kwikpen U-100 Insulin) 100 unit/mL (3 mL) insulin pen Insulin Glargine (Basaglar Kwikpen U-100 Insulin) 100 unit/mL (3 mL) insulin pen 02/24/2020 10:13:21 AM EDT 35 UNIT co mpleted [facility] Insulin Glargine Insulin Glargine (Basag lar Kwikpen U-100 Insulin) 100 unit/mL (3 mL) insulin pen Insulin Glargine (Basaglar Kwikpen U-100 Insulin) 100 unit/mL (3 mL) insulin pen 02/24/2020 10:13:21 AM EDT 35 UNIT co mpleted [facility] Insulin Glargine Insulin Glargine 02/24/2020 10:13:21 AM EDT 35 UNIT active [facility] Insulin Syr/Ndl U100 Half Hiram (Bd Insul in Syringe Half Unit) 0.3 mL 31 gauge x 5/16" syringe 02/24/2020 10:11:27 AM EDT 0 act rhett [facility] Insulin Syr/Ndl U100 Half Hiram (Bd Insul in Syringe Half Unit) 0.3 mL 31 gauge x 5/16" syringe 02/24/2020 10:11:27 AM EDT 0 com [facility] Insulin Syr/Ndl U100 Half Hiram 02/24/2020 10:11:27 AM EDT 0 active [facility] Insulin Syr/Ndl U100 Half [place]am (Bd Insul in Syringe Half Unit) 0.3 mL 31 gauge x 5/16" syringe 02/24/2020 10:11:27 AM EDT 0 com [facility] Insulin Syr/Ndl U100 Half [place]am (Bd Insul in Syringe Half Unit) 0.3 mL 31 gauge x 5/16" syringe 02/24/2020 10:11:27 AM EDT 0 com [facility] Insulin Lispro 02/24/2020 10:09:38 AM EDT 1 sliding scale d ose active [facility] Insulin Lispro (Admelog U-100 Insulin Lispro) 100 unit/mL so lution 02/24/2020 10:09:38 AM EDT 1 sliding scale dose completed [facility] Insulin Lispro (Admelog U-100 Insulin Lispro) 100 unit/mL so lution 02/24/2020 10:09:38 AM EDT 1 sliding scale dose completed [facility] Insulin Lispro (Admelog U-100 Insulin Lispro) 100 unit/mL so lution 02/24/2020 10:09:38 AM EDT 1 sliding scale dose active [facility] Insulin Lispro (Admelog U-100 Insulin Lispro) 100 unit/mL so lution 02/24/2020 10:09:38 AM EDT 1 sliding scale dose completed [facility] Insulin Lispro (Admelog Solostar U-100 Insulin) 100 unit/mL insulin pen 02/22/2020 05:00:05 PM EDT 5 UNIT completed [facility] Insulin Lispro (Admelog Solostar U-100 Insulin) 100 unit/mL insulin pen 02/22/2020 05:00:05 PM EDT 5 UNIT completed [facility] Insulin Lispro 02/22/2020 05:00:05 PM EDT 5 UNIT c ompleted [facility] Insulin Lispro (Admelog Solostar U-100 Insulin) 100 unit/mL insulin pen 02/22/2020 05:00:05 PM EDT 5 UNIT completed [facility] Insulin Lispro (Admelog Solostar U-100 Insulin) 100 unit/mL insulin pen 02/22/2020 05:00:05 PM EDT 5 UNIT completed [facility] Insulin Lispro (Admelog Solostar U-100 Insulin) 100 unit/mL insulin pen 02/22/2020 04:53:44 PM EDT 5 UNIT completed [facility] Insulin Lispro 02/22/2020 04:53:44 PM EDT 5 UNIT c ompleted [facility] Insulin Lispro (Admelog Solostar U-100 Insulin) 100 unit/mL insulin pen 02/22/2020 04:53:44 PM EDT 5 UNIT completed [facility] Insulin Lispro (Admelog Solostar U-100 Insulin) 100 unit/mL insulin pen 02/22/2020 04:53:44 PM EDT 5 UNIT completed [facility] Insulin Lispro (Admelog Solostar U-100 Insulin) 100 unit/mL insulin pen 02/22/2020 04:53:44 PM EDT 5 UNIT completed [facility] Ramipril 5 MG Oral Capsule Ramipril 02/21/2020 03:23:29 PM EDT 5 MG completed [facility] Ramipril 5 MG Oral Capsule Ramipril 02/21/2020 03:23:29 PM EDT 5 MG active [facility] Ramipril 5 MG Oral Capsule Ramipril 02/21/2020 03:23:29 PM EDT 5 MG completed [facility] Ramipril 5 MG Oral Capsule Ramipril 02/21/2020 03:23:29 PM EDT 5 MG completed [facility] Ramipril 5 MG Oral Capsule Ramipril 02/21/2020 03:23:29 PM EDT 5 MG completed [facility] Ramipril 5 MG Oral Capsule Ramipril 02/21/2020 03:23:29 PM EDT 5 MG completed [facility] Thiamine 100 MG Oral Tablet Thiamine Hcl (Vitamin B1) Thiami ne Hcl (Vitamin B1) 02/21/2020 03:20:30 PM EDT 100 MG active [facility] Thiamine 100 MG Oral Tablet Thiamine Hcl (Vitamin B1) Thiami ne Hcl (Vitamin B1) 02/21/2020 03:20:30 PM EDT 100 MG completed [facility] Thiamine 100 MG Oral Tablet Thiamine Hcl (Vitamin B1) Thiami ne Hcl (Vitamin B1) 02/21/2020 03:20:30 PM EDT 100 MG completed [facility] Thiamine 100 MG Oral Tablet Thiamine Hcl (Vitamin B1) Thiami ne Hcl (Vitamin B1) 02/21/2020 03:20:30 PM EDT 100 MG completed [facility] Thiamine 100 MG Oral Tablet Thiamine Hcl (Vitamin B1) Thiami ne Hcl (Vitamin B1) 02/21/2020 03:20:30 PM EDT 100 MG active [facility] Thiamine 100 MG Oral Tablet Thiamine Hcl (Vitamin B1) Thiami ne Hcl (Vitamin B1) 02/21/2020 03:20:30 PM EDT 100 MG active [facility] Pen Needle, Diabetic 02/21/2020 03:19:05 PM EDT 1 EACH active [facility] Pen Needle, Diabetic 02/21/2020 03:19:05 PM EDT 1 EACH completed [facility] Pen Needle, Diabetic 02/21/2020 03:19:05 PM EDT 1 EACH active [facility] Pen Needle, Diabetic 02/21/2020 03:19:05 PM EDT 1 EACH completed [facility] Pen Needle, Diabetic 02/21/2020 03:19:05 PM EDT 1 EACH active [facility] Pen Needle, Diabetic 02/21/2020 03:19:05 PM EDT 1 EACH completed [facility] pantoprazole 40 MG Delayed Release Oral Tablet Pantoprazole Pantoprazole 02/21/2020 03:18:58 PM EDT 40 MG completed [facility] pantoprazole 40 MG Delayed Release Oral Tablet Pantoprazole Pantoprazole 02/21/2020 03:18:58 PM EDT 40 MG completed [facility] pantoprazole 40 MG Delayed Release Oral Tablet Pantoprazole Pantoprazole 02/21/2020 03:18:58 PM EDT 40 MG completed [facility] pantoprazole 40 MG Delayed Release Oral Tablet Pantoprazole Pantoprazole 02/21/2020 03:18:58 PM EDT 40 MG active [facility] pantoprazole 40 MG Delayed Release Oral Tablet Pantoprazole Pantoprazole 02/21/2020 03:18:58 PM EDT 40 MG active [facility] pantoprazole 40 MG Delayed Release Oral Tablet Pantoprazole Pantoprazole 02/21/2020 03:18:58 PM EDT 40 MG active [facility] Metoprolol Tartrate 100 MG Oral Tablet Metoprolol Tartrate 0 02/21/2020 03:18:45 PM EDT 100 MG completed [facility] Metoprolol Tartrate 100 MG Oral Tablet Metoprolol Tartrate 0 02/21/2020 03:18:45 PM EDT 100 MG completed [facility] Metoprolol Tartrate 100 MG Oral Tablet Metoprolol Tartrate 0 02/21/2020 03:18:45 PM EDT 100 MG active [facility] Metoprolol Tartrate 100 MG Oral Tablet Metoprolol Tartrate 0 02/21/2020 03:18:45 PM EDT 100 MG active [facility] Metoprolol Tartrate 100 MG Oral Tablet Metoprolol Tartrate 0 02/21/2020 03:18:45 PM EDT 100 MG completed [facility] Metoprolol Tartrate 100 MG Oral Tablet Metoprolol Tartrate 0 02/21/2020 03:18:45 PM EDT 100 MG active [facility] 3 ML Insulin Glargine 100 UNT/ML Pen Injector Insulin Glargi ne 02/21/2020 03:18:31 PM EDT 64 UNIT completed [facility] 3 ML Insulin Glargine 100 UNT/ML Pen Inj juan Insulin Glargine (Lantus Solostar U-100 Insulin) 100 unit/mL (3 mL) insulin pen Insulin Glargine (Lantus Solostar U-100 Insulin) 100 unit/mL (3 mL) insulin pen 02/21/2020 03:18:31 PM EDT 64 UNIT completed [facility] 3 ML Insulin Glargine 100 UNT/ML Pen Inj juan Insulin Glargine (Lantus Solostar U-100 Insulin) 100 unit/mL (3 mL) insulin pen Insulin Glargine (Lantus Solostar U-100 Insulin) 100 unit/mL (3 mL) insulin pen 02/21/2020 03:18:31 PM EDT 64 UNIT completed [facility] 3 ML Insulin Glargine 100 UNT/ML Pen Inj juan Insulin Glargine (Lantus Solostar U-100 Insulin) 100 unit/mL (3 mL) insulin pen Insulin Glargine (Lantus Solostar U-100 Insulin) 100 unit/mL (3 mL) insulin pen 02/21/2020 03:18:31 PM EDT 64 UNIT completed [facility] 3 ML Insulin Glargine 100 UNT/ML Pen Injector Insulin Glargi ne 02/21/2020 03:18:31 PM EDT 64 UNIT active [facility] 3 ML Insulin Glargine 100 UNT/ML Pen Inj juan Insulin Glargine (Lantus Solostar U-100 Insulin) 100 unit/mL (3 mL) insulin pen Insulin Glargine (Lantus Solostar U-100 Insulin) 100 unit/mL (3 mL) insulin pen 02/21/2020 03:18:31 PM EDT 64 UNIT completed [facility] Insulin Aspart U-100 (Novolog Penfill U-100 Insulin) 100 uni t/mL cartridge 02/21/2020 03:17:50 PM EDT 1 sliding scale dose comp leted [facility] Insulin Aspart U-100 (Novolog Penfill U-100 Insulin) 100 uni t/mL cartridge 02/21/2020 03:17:50 PM EDT 1 sliding scale dose comp leted [facility] Insulin Aspart U-100 02/21/2020 03:17:50 PM EDT 1 slidin g scale dose active [facility] Insulin Aspart U-100 (Novolog Penfill U-100 Insulin) 100 uni t/mL cartridge 02/21/2020 03:17:50 PM ED[facility] 02/21/2020 03:17:50 PM EDT 1 slidin g scale dose completed [facility] Insulin Aspart U-100 (Novolog Penfill U-100 Insulin) 100 uni t/mL cartridge 02/21/2020 03:17:50 PM ED[facility] Oral Tablet Folic Acid 02/21/2020 03:17:38 PM EDT 1 MG completed [facility] Folic Acid 1 MG Oral Tablet Folic Acid 02/21/2020 03:17:38 PM EDT 1 MG completed [facility] Folic Acid 1 MG Oral Tablet Folic Acid 02/21/2020 03:17:38 PM EDT 1 MG active [facility] Folic Acid 1 MG Oral Tablet Folic Acid 02/21/2020 03:17:38 PM EDT 1 MG active [facility] Folic Acid 1 MG Oral Tablet Folic Acid 02/21/2020 03:17:38 PM EDT 1 MG active [facility] Folic Acid 1 MG Oral Tablet Folic Acid 02/21/2020 03:17:38 PM EDT 1 MG completed [facility] Blood Sugar Diagnostic (Ge100 Blood Glucose Test Strip) stri p 02/21/2020 03:16:25 PM EDT 1 EACH completed [facility] Blood Sugar Diagnostic (Ge100 Blood Glucose Test Strip) stri p 02/21/2020 03:16:25 PM EDT 1 EACH [facility] Blood Sugar Diagnostic 02/21/2020 03:16:25 PM EDT 1 EACH active [facility] Blood Sugar Diagnostic (Ge100 Blood Glucose Test Strip) stri p 02/21/2020 03:16:25 PM EDT 1 EACH [facility] Blood Sugar Diagnostic (Ge100 Blood Glucose Test Strip) stri p 02/21/2020 03:16:25 PM EDT 1 EACH active [facility] Blood Sugar Diagnostic 02/21/2020 03:16:25 PM EDT 1 EACH active [facility] atorvastatin 80 MG Oral Tablet Atorvastatin Atorvastatin 02/21/2020 03:16:18 PM EDT 80 MG completed [facility] atorvastatin 80 MG Oral Tablet Atorvastatin Atorvastatin 02/21/2020 03:16:18 PM EDT 80 MG active [facility] atorvastatin 80 MG Oral Tablet Atorvastatin Atorvastatin 02/21/2020 03:16:18 PM EDT 80 MG completed [facility] atorvastatin 80 MG Oral Tablet Atorvastatin Atorvastatin 02/21/2020 03:16:18 PM EDT 80 MG completed [facility] atorvastatin 80 MG Oral Tablet Atorvastatin Atorvastatin 02/21/2020 03:16:18 PM EDT 80 MG active [facility] atorvastatin 80 MG Oral Tablet Atorvastatin Atorvastatin 02/21/2020 03:16:18 PM EDT 80 MG active [facility] Aspirin 81 MG Delayed Release Oral Table t Aspirin (Aspir-81) 81 mg tablet,delayed release (DR/EC) Aspirin (Aspir-81) 81 mg tablet,delayed release (DR/EC) 02/21/2020 03:16:11 PM EDT 81 MG completed [facility] Aspirin 81 MG Delayed Release Oral Table t Aspirin (Aspir-81) 81 mg tablet,delayed release (DR/EC) Aspirin (Aspir-81) 81 mg tablet,delayed release (DR/EC) 02/21/2020 03:16:11 PM EDT 81 MG active [facility] Aspirin 81 MG Delayed Release Oral Tablet Aspirin 02/21/2020 0 3:16:11 PM EDT 81 MG active [facility] Aspirin 81 MG Delayed Release Oral Tablet Aspirin 02/21/2020 0 3:16:11 PM EDT 81 MG active [facility] Aspirin 81 MG Delayed Release Oral Table t Aspirin (Aspir-81) 81 mg tablet,delayed release (DR/EC) Aspirin (Aspir-81) 81 mg tablet,delayed release (DR/EC) 02/21/2020 03:16:11 PM EDT 81 MG completed [facility] Aspirin 81 MG Delayed Release Oral Table t Aspirin (Aspir-81) 81 mg tablet,delayed release (DR/EC) Aspirin (Aspir-81) 81 mg tablet,delayed release (DR/EC) 02/21/2020 03:16:11 PM EDT 81 MG completed [facility] Insulin Aspart U-100 02/21/2020 02:48:18 PM EDT 1 slidin g scale dose completed [facility] Insulin Aspart U-100 02/21/2020 02:48:18 PM EDT 1 slidin g scale dose completed [facility] Insulin Aspart U-100 (Novolog Penfill U-100 Insulin) 100 uni t/mL cartridge 02/21/2020 02:48:18 PM EDT 1 sliding scale dose comp leted [facility] Insulin Aspart U-100 (Novolog Penfill U-100 Insulin) 100 uni t/mL cartridge 02/21/2020 02:48:18 PM EDT 1 sliding scale dose comp leted [facility] Insulin Aspart U-100 (Novolog Penfill U-100 Insulin) 100 uni t/mL cartridge 02/21/2020 02:48:18 PM EDT 1 sliding scale dose comp leted [facility] Insulin Aspart U-100 (Novolog Penfill U-100 Insulin) 100 uni t/mL cartridge 02/21/2020 02:48:18 PM EDT 1 sliding scale dose comp [facility] Metoprolol Tartrate 100 MG Oral Tablet Metoprolol Tartrate 0 09/28/2019 01:54:46 PM EST 100 MG completed [facility] Metoprolol Tartrate 100 MG Oral Tablet Metoprolol Tartrate 0 09/28/2019 01:54:46 PM EST 100 MG completed [facility] Metoprolol Tartrate 100 MG Oral Tablet Metoprolol Tartrate 0 09/28/2019 01:54:46 PM EST 100 MG completed [facility] Metoprolol Tartrate 100 MG Oral Tablet Metoprolol Tartrate 0 09/28/2019 01:54:46 PM EST 100 MG completed [facility] Metoprolol Tartrate 100 MG Oral Tablet Metoprolol Tartrate 0 09/28/2019 01:54:46 PM EST 100 MG completed [facility] Metoprolol Tartrate 100 MG Oral Tablet Metoprolol Tartrate 0 09/28/2019 01:54:46 PM EST 100 MG completed [facility] Metoprolol Tartrate 100 MG Oral Tablet Metoprolol Tartrate 0 09/27/2019 09:31:55 AM EST 50 MG completed [facility] Metoprolol Tartrate 100 MG Oral Tablet Metoprolol Tartrate 0 09/27/2019 09:31:55 AM EST 50 MG completed [facility] Metoprolol Tartrate 100 MG Oral Tablet Metoprolol Tartrate 0 09/27/2019 09:31:55 AM EST 50 MG completed [facility] Metoprolol Tartrate 100 MG Oral Tablet Metoprolol Tartrate 0 09/27/2019 09:31:55 AM EST 50 MG completed [facility] Metoprolol Tartrate 100 MG Oral Tablet Metoprolol Tartrate 0 09/27/2019 09:31:55 AM EST 50 MG completed [facility] Metoprolol Tartrate 100 MG Oral Tablet Metoprolol Tartrate 0 09/27/2019 09:31:55 AM EST 50 MG completed [facility] 3 ML Insulin Glargine 100 UNT/ML Pen Injector Insulin Glargi ne 09/27/2019 09:31:49 AM EST 64 UNIT completed [facility] 3 ML Insulin Glargine 100 UNT/ML Pen Injector Insulin Glargi ne 09/27/2019 09:31:49 AM EST 64 UNIT completed [facility] 3 ML Insulin Glargine 100 UNT/ML Pen Inj juan Insulin Glargine (Lantus Solostar U-100 Insulin) 100 unit/mL (3 mL) insulin pen Insulin Glargine (Lantus Solostar U-100 Insulin) 100 unit/mL (3 mL) insulin pen 09/27/2019 09:31:49 AM EST 64 UNIT completed [facility] 3 ML Insulin Glargine 100 UNT/ML Pen Inj juan Insulin Glargine (Lantus Solostar U-100 Insulin) 100 unit/mL (3 mL) insulin pen Insulin Glargine (Lantus Solostar U-100 Insulin) 100 unit/mL (3 mL) insulin pen 09/27/2019 09:31:49 AM EST 64 UNIT completed [facility] 3 ML Insulin Glargine 100 UNT/ML Pen Inj juan Insulin Glargine (Lantus Solostar U-100 Insulin) 100 unit/mL (3 mL) insulin pen Insulin Glargine (Lantus Solostar U-100 Insulin) 100 unit/mL (3 mL) insulin pen 09/27/2019 09:31:49 AM EST 64 UNIT completed [facility] 3 ML Insulin Glargine 100 UNT/ML Pen Inj juan Insulin Glargine (Lantus Solostar U-100 Insulin) 100 unit/mL (3 mL) insulin pen Insulin Glargine (Lantus Solostar U-100 Insulin) 100 unit/mL (3 mL) insulin pen 09/27/2019 09:31:49 AM EST 64 UNIT completed [facility] Folic Acid 1 MG Oral Tablet Folic Acid 09/27/2019 09:31:46 AM EST 1 MG completed [facility] Folic Acid 1 MG Oral Tablet Folic Acid 09/27/2019 09:31:46 AM EST 1 MG completed [facility] Folic Acid 1 MG Oral Tablet Folic Acid 09/27/2019 09:31:46 AM EST 1 MG completed [facility] Folic Acid 1 MG Oral Tablet Folic Acid 09/27/2019 09:31:46 AM EST 1 MG completed [facility] Folic Acid 1 MG Oral Tablet Folic Acid 09/27/2019 09:31:46 AM EST 1 MG completed [facility] Folic Acid 1 MG Oral Tablet Folic Acid 09/27/2019 09:31:46 AM EST 1 MG completed [facility] dapagliflozin 5 MG Oral Tablet [Farxiga] Dapagliflozin (Farxiga) 5 mg tablet Dapagliflozin (Farxiga) 5 mg tablet 09/27/2019 09:31:43 AM EST 5 MG completed [facility] dapagliflozin 5 MG Oral Tablet [Farxiga] Dapagliflozin (Farxiga) 5 mg tablet Dapagliflozin (Farxiga) 5 mg tablet 09/27/2019 09:31:43 AM EST 5 MG completed [facility] dapagliflozin 5 MG Oral Tablet [Farxiga] Dapagliflozin Dapag liflozin 09/27/2019 09:31:43 AM EST 5 MG completed [facility] dapagliflozin 5 MG Oral Tablet [Farxiga] Dapagliflozin (Farxiga) 5 mg tablet Dapagliflozin (Farxiga) 5 mg tablet 09/27/2019 09:31:43 AM EST 5 MG completed [facility] dapagliflozin 5 MG Oral Tablet [Farxiga] Dapagliflozin (Farxiga) 5 mg tablet Dapagliflozin (Farxiga) 5 mg tablet 09/27/2019 09:31:43 AM EST 5 MG completed [facility] dapagliflozin 5 MG Oral Tablet [Farxiga] Dapagliflozin Dapag liflozin 09/27/2019 09:31:43 AM EST 5 MG completed [facility] atorvastatin 80 MG Oral Tablet Atorvastatin Atorvastatin 09/27/2019 09:31:34 AM EST 80 MG completed [facility] atorvastatin 80 MG Oral Tablet Atorvastatin Atorvastatin 09/27/2019 09:31:34 AM EST 80 MG completed [facility] atorvastatin 80 MG Oral Tablet Atorvastatin Atorvastatin 09/27/2019 09:31:34 AM EST 80 MG completed [facility] atorvastatin 80 MG Oral Tablet Atorvastatin Atorvastatin 09/27/2019 09:31:34 AM EST 80 MG completed [facility] atorvastatin 80 MG Oral Tablet Atorvastatin Atorvastatin 09/27/2019 09:31:34 AM EST 80 MG completed [facility] atorvastatin 80 MG Oral Tablet Atorvastatin Atorvastatin 09/27/2019 09:31:34 AM EST 80 MG completed [facility] atorvastatin 80 MG Oral Tablet Atorvastatin Atorvastatin 07/15/2019 09:16:37 AM EST 80 MG completed [facility] atorvastatin 80 MG Oral Tablet Atorvastatin Atorvastatin 07/15/2019 09:16:37 AM EST 80 MG completed [facility] atorvastatin 80 MG Oral Tablet Atorvastatin Atorvastatin 07/15/2019 09:16:37 AM EST 80 MG completed [facility] atorvastatin 80 MG Oral Tablet Atorvastatin Atorvastatin 07/15/2019 09:16:37 AM EST 80 MG completed [facility] atorvastatin 80 MG Oral Tablet Atorvastatin Atorvastatin 07/15/2019 09:16:37 AM EST 80 MG completed [facility] atorvastatin 80 MG Oral Tablet Atorvastatin Atorvastatin 07/15/2019 09:16:37 AM EST 80 MG completed [facility] Aspirin 81 MG Delayed Release Oral Table t Aspirin (Aspir-81) 81 mg tablet,delayed release (DR/EC) Aspirin (Aspir-81) 81 mg tablet,delayed release (DR/EC) 07/15/2019 07:54:48 AM EST 81 MG completed [facility] Aspirin 81 MG Delayed Release Oral Tablet Aspirin 07/15/2019 0 7:54:48 AM EST 81 MG completed [facility] Aspirin 81 MG Delayed Release Oral Table t Aspirin (Aspir-81) 81 mg tablet,delayed release (DR/EC) Aspirin (Aspir-81) 81 mg tablet,delayed release (DR/EC) 07/15/2019 07:54:48 AM EST 81 MG completed [facility] Aspirin 81 MG Delayed Release Oral Tablet Aspirin 07/15/2019 0 7:54:48 AM EST 81 MG completed [facility] Aspirin 81 MG Delayed Release Oral Table t Aspirin (Aspir-81) 81 mg tablet,delayed release (DR/EC) Aspirin (Aspir-81) 81 mg tablet,delayed release (DR/EC) 07/15/2019 07:54:48 AM EST 81 MG completed [facility] Aspirin 81 MG Delayed Release Oral Table t Aspirin (Aspir-81) 81 mg tablet,delayed release (DR/EC) Aspirin (Aspir-81) 81 mg tablet,delayed release (DR/EC) 07/15/2019 07:54:48 AM EST 81 MG completed [facility] Folic Acid 1 MG Oral Tablet Folic Acid 07/08/2019 07:27:04 AM EDT 1 MG completed [facility] Folic Acid 1 MG Oral Tablet Folic Acid 07/08/2019 07:27:04 AM EDT 1 MG completed [facility] Folic Acid 1 MG Oral Tablet Folic Acid 07/08/2019 07:27:04 AM EDT 1 MG [facility] Folic Acid 1 MG Oral Tablet Folic Acid 07/08/2019 07:27:04 AM EDT 1 MG [facility] Folic Acid 1 MG Oral Tablet Folic Acid 07/08/2019 07:27:04 AM EDT 1 MG completed [facility] Folic Acid 1 MG Oral Tablet Folic Acid 07/08/2019 07:27:04 AM EDT 1 MG [facility] pantoprazole 40 MG Delayed Release Oral Tablet Pantoprazole Pantoprazole 02/16/2019 07:32:26 AM EDT 40 MG [facility] pantoprazole 40 MG Delayed Release Oral Tablet Pantoprazole Pantoprazole 02/16/2019 07:32:26 AM EDT 40 MG [facility] pantoprazole 40 MG Delayed Release Oral Tablet Pantoprazole Pantoprazole 02/16/2019 07:32:26 AM EDT 40 MG completed [facility] pantoprazole 40 MG Delayed Release Oral Tablet Pantoprazole Pantoprazole 02/16/2019 07:32:26 AM EDT 40 MG completed [facility] pantoprazole 40 MG Delayed Release Oral Tablet Pantoprazole Pantoprazole 02/16/2019 07:32:26 AM EDT 40 MG completed [facility] pantoprazole 40 MG Delayed Release Oral Tablet Pantoprazole Pantoprazole 02/16/2019 07:32:26 AM EDT 40 MG completed [facility] 3 ML Insulin Glargine 100 UNT/ML Pen Inj juan Insulin Glargine (Lantus Solostar U-100 Insulin) 100 unit/mL (3 mL) insulin pen Insulin Glargine (Lantus Solostar U-100 Insulin) 100 unit/mL (3 mL) insulin pen 01/19/2019 07:29:21 AM EDT 64 UNIT completed [facility] 3 ML Insulin Glargine 100 UNT/ML Pen Inj juan Insulin Glargine (Lantus Solostar U-100 Insulin) 100 unit/mL (3 mL) insulin pen Insulin Glargine (Lantus Solostar U-100 Insulin) 100 unit/mL (3 mL) insulin pen 01/19/2019 07:29:21 AM EDT 64 UNIT completed [facility] 3 ML Insulin Glargine 100 UNT/ML Pen Inj juan Insulin Glargine (Lantus Solostar U-100 Insulin) 100 unit/mL (3 mL) insulin pen Insulin Glargine (Lantus Solostar U-100 Insulin) 100 unit/mL (3 mL) insulin pen 01/19/2019 07:29:21 AM EDT 64 UNIT completed [facility] 3 ML Insulin Glargine 100 UNT/ML Pen Injector Insulin Glargi ne 01/19/2019 07:29:21 AM EDT 64 UNIT completed [facility] 3 ML Insulin Glargine 100 UNT/ML Pen Injector Insulin Glargi ne 01/19/2019 07:29:21 AM EDT 64 UNIT completed [facility] 3 ML Insulin Glargine 100 UNT/ML Pen Inj juan Insulin Glargine (Lantus Solostar U-100 Insulin) 100 unit/mL (3 mL) insulin pen Insulin Glargine (Lantus Solostar U-100 Insulin) 100 unit/mL (3 mL) insulin pen 01/19/2019 07:29:21 AM EDT 64 UNIT completed [facility] Metoprolol Tartrate 100 MG Oral Tablet Metoprolol Tartrate 0 12/26/2018 12:07:00 PM EDT 50 MG completed [facility] Metoprolol Tartrate 100 MG Oral Tablet Metoprolol Tartrate 0 12/26/2018 12:07:00 PM EDT 50 MG completed [facility] Metoprolol Tartrate 100 MG Oral Tablet Metoprolol Tartrate 0 12/26/2018 12:07:00 PM EDT 50 MG completed [facility] Metoprolol Tartrate 100 MG Oral Tablet Metoprolol Tartrate 0 12/26/2018 12:07:00 PM EDT 50 MG completed [facility] Metoprolol Tartrate 100 MG Oral Tablet Metoprolol Tartrate 0 12/26/2018 12:07:00 PM EDT 50 MG completed [facility] Metoprolol Tartrate 100 MG Oral Tablet Metoprolol Tartrate 0 12/26/2018 12:07:00 PM EDT 50 MG completed [facility] Blood-Glucose Meter 12/17/2018 09:28:00 AM EDT 1 EACH completed [facility] Blood-Glucose Meter 12/17/2018 09:28:00 AM EDT 1 EACH completed [facility] Blood-Glucose Meter 12/17/2018 09:28:00 AM EDT 1 EACH completed [facility] Blood-Glucose Meter 12/17/2018 09:28:00 AM EDT 1 EACH completed [facility] Blood Sugar Diagnostic (Ge100 Blood Glucose Test Strip) 1 EA CH strip 12/16/2018 11:19:00 AM EDT 1 EACH completed [facility] Blood Sugar Diagnostic (Ge100 Blood Glucose Test Strip) 1 EA CH strip 12/16/2018 11:19:00 AM EDT 1 EACH completed [facility] Blood Sugar Diagnostic 12/16/2018 11:19:00 AM EDT [facility] (Ge100 Blood Glucose Test Strip) 1 EA CH strip 12/16/2018 11:19:00 AM EDT 1 EACH completed [facility] Blood Sugar Diagnostic (Ge100 Blood Glucose Test Strip) 1 EA CH strip 12/16/2018 11:19:00 AM EDT 1 EACH completed [facility] Blood Sugar Diagnostic 12/16/2018 11:19:00 AM EDT 1 EACH [facility] Cl[facility] Hydrochloride 0.1 MG Oral Tablet Clonidine Hcl [facility] Hcl 09/30/2018 02:45:00 PM EST 0.1 MG completed [facility] Clonidine Hydrochloride 0.1 MG Oral Tablet Clonidine Hcl [facility] Hcl 09/30/2018 02:45:00 PM EST 0.1 MG completed [facility] Clonidine Hydrochloride 0.1 MG Oral Tablet Clonidine Hcl [facility] Hcl 09/30/2018 02:45:00 PM EST 0.1 MG completed [facility] Clonidine Hydrochloride 0.1 MG Oral Tablet Clonidine Hcl [facility] Hcl 09/30/2018 02:45:00 PM EST 0.1 MG completed [facility] Clonidine Hydrochloride 0.1 MG Oral Tablet Clonidine Hcl [facility] Hcl 09/30/2018 02:45:00 PM EST 0.1 MG completed [facility] Clonidine Hydrochloride 0.1 MG Oral Tablet Clonidine Hcl [facility] Hcl 09/30/2018 02:45:00 PM EST 0.1 MG completed [facility] Ramipril 2.5 MG Oral Capsule Ramipril capsule Ramipril capsu le 07/30/2018 01:46:00 PM EST 0 completed [facility] Ramipril 2.5 MG Oral Capsule Ramipril capsule Ramipril capsu le 07/30/2018 01:46:00 PM EST 0 completed [facility] Ramipril 2.5 MG Oral Capsule Ramipril capsule Ramipril capsu le 07/30/2018 01:46:00 PM EST 0 completed [facility] Ramipril 2.5 MG Oral Capsule Ramipril capsule Ramipril capsu le 07/30/2018 01:46:00 PM EST 0 completed [facility] Ramipril 2.5 MG Oral Capsule Ramipril capsule Ramipril capsu le 07/30/2018 01:46:00 PM EST 0 completed [facility] Ramipril 2.5 MG Oral Capsule Ramipril capsule Ramipril capsu le 07/30/2018 01:46:00 PM EST 0 completed [facility] dapagliflozin 5 MG Oral Tablet [Farxiga] Dapagliflozin (Farxiga) 5 MG tablet Dapagliflozin (Farxiga) 5 MG tablet 07/17/2018 08:15:00 AM EST 5 MG completed [facility] dapagliflozin 5 MG Oral Tablet [Farxiga] Dapagliflozin (Farxiga) 5 MG tablet Dapagliflozin (Farxiga) 5 MG tablet 07/17/2018 08:15:00 AM EST 5 MG completed [facility] dapagliflozin 5 MG Oral Tablet [Farxiga] Dapagliflozin Dapag liflozin 07/17/2018 08:15:00 AM EST 5 MG completed [facility] dapagliflozin 5 MG Oral Tablet [Farxiga] Dapagliflozin (Farxiga) 5 MG tablet Dapagliflozin (Farxiga) 5 MG tablet 07/17/2018 08:15:00 AM EST 5 MG completed [facility] dapagliflozin 5 MG Oral Tablet [Farxiga] Dapagliflozin (Farxiga) 5 MG tablet Dapagliflozin (Farxiga) 5 MG tablet 07/17/2018 08:15:00 AM EST 5 MG completed [facility] dapagliflozin 5 MG Oral Tablet [Farxiga] Dapagliflozin Dapag liflozin 07/17/2018 08:15:00 AM EST 5 MG completed [facility] 24 HR Metformin hydrochloride 500 MG Extended Release Oral T ablet Metformin 07/07/2018 09:14:00 AM EDT 4 TAB completed [facility] 24 HR Metformin hydrochloride 500 MG Extended Release Oral T ablet Metformin 07/07/2018 09:14:00 AM EDT 4 TAB completed [facility] 24 HR Metformin hydrochloride 500 MG Extended Release Oral T ablet Metformin 07/07/2018 09:14:00 AM EDT 4 TAB completed [facility] 24 HR Metformin hydrochloride 500 MG Extended Release Oral T ablet Metformin 07/07/2018 09:14:00 AM EDT 4 TAB completed [facility] 24 HR Metformin hydrochloride 500 MG Extended Release Oral T ablet Metformin 07/07/2018 09:14:00 AM EDT 4 TAB completed [facility] 24 HR Metformin hydrochloride 500 MG Extended Release Oral T ablet Metformin 07/07/2018 09:14:00 AM EDT 4 TAB completed [facility] 3 ML Insulin Lispro 100 UNT/ML Pen Injec tor Insulin Lispro (Humalog Kwikpen U- 100) 100 UNIT/1 ML insulin pen Insulin Lispro (Humalog Kwikpen U-100) 1 00 UNIT/1 ML insulin pen 07/02/2018 10:28:00 AM EDT 10 UNIT compl eted [facility] 3 ML Insulin Lispro 100 UNT/ML Pen Injector Insulin Lispro 07/02/2018 10:28:00 AM EDT 10 UNIT completed [facility] 3 ML Insulin Lispro 100 UNT/ML Pen Injector Insulin Lispro 07/02/2018 10:28:00 AM EDT 10 UNIT completed [facility] 3 ML Insulin Lispro 100 UNT/ML Pen Injec tor Insulin Lispro (Humalog Kwikpen U- 100) 100 UNIT/1 ML insulin pen Insulin Lispro (Humalog Kwikpen U-100) 1 00 UNIT/1 ML insulin pen 07/02/2018 10:28:00 AM EDT 10 UNIT compl eted [facility] 3 ML Insulin Lispro 100 UNT/ML Pen Injec tor Insulin Lispro (Humalog Kwikpen U- 100) 100 UNIT/1 ML insulin pen Insulin Lispro (Humalog Kwikpen U-100) 1 00 UNIT/1 ML insulin pen 07/02/2018 10:28:00 AM EDT 10 UNIT compl eted [facility] 3 ML Insulin Lispro 100 UNT/ML Pen Injec tor Insulin Lispro (Humalog Kwikpen U- 100) 100 UNIT/1 ML insulin pen Insulin Lispro (Humalog Kwikpen U-100) 1 00 UNIT/1 ML insulin pen 07/02/2018 10:28:00 AM [facility] 01/18/2018 11:46:00 AM EDT 1 EACH completed [facility] Pen Needle, Diabetic 01/18/2018 11:46:00 AM EDT 1 EACH completed [facility] Pen Needle, Diabetic 01/18/2018 11:46:00 AM EDT 1 EACH completed [facility] Pen Need[place], Diabetic 01/18/2018 11:46:00 AM EDT 1 EACH completed [facility] Pen Need[place], Diabetic 01/18/2018 11:46:00 AM EDT 1 EACH completed [facility] Pen Need[place], Diabetic 01/18/2018 11:46:00 AM EDT 1 EACH completed [facility] Amylases 11730 UNT / Endopeptidases 3800 0 UNT / Lipase 38857 UNT Delayed Release Oral Capsule Dctshc-Rtlocfne-Tsqxaub (Creon) 12,000-38,000 -60,000 unit capsule,delayed release(DR/EC) Rsbvgq-Mmkmtorb-Bmtakhx (Creon) 12,000-3 8,000 - 60,000 unit capsule,delayed release(DR/EC) 11/18/2017 10:06:05 AM EDT 1 CAP completed [facility] Amylases 32845 UNT / Endopeptidases 3800 0 UNT / Lipase 87455 UNT Delayed Release Oral Capsule Eacwzt-Tnqxdorv-Kabkfyf Unnyes-Vfzfyxax-Nplpjlr 11/18/2017 10:06:05 AM EDT 1 CAP completed [facility] Amylases 99143 UNT / Endopeptidases 3800 0 UNT / Lipase 27833 UNT Delayed Release Oral Capsule Prjkxz-Evrcoqim-Hgwvubj (Creon) 12,000-38,000 -60,000 unit capsule,delayed release(DR/EC) Rxoeya-Gqzpitze-Llsyoou (Creon) 12,000-3 8,000 - 60,000 unit capsule,delayed release(DR/EC) 11/18/2017 10:06:05 AM EDT 1 CAP completed [facility] Amylases 05032 UNT / Endopeptidases 3800 0 UNT / Lipase 49174 UNT Delayed Release Oral Capsule Ladbvi-Ilvtfsoo-Raxhaub (Creon) 12,000-38,000 -60,000 unit capsule,delayed release(DR/EC) Lrpqdk-Lsykegdh-Vemgziw (Creon) 12,000-3 8,000 - 60,000 unit capsule,delayed release(DR/EC) 11/18/2017 10:06:05 AM EDT 1 CAP completed [facility] Amylases 96118 UNT / Endopeptidases 3800 0 UNT / Lipase 54989 UNT Delayed Release Oral Capsule Staclh-Tttfoyax-Ckvzkmb Rcidum-Wobbskif-Vomsavm 11/18/2017 10:06:05 AM EDT 1 CAP completed [facility] Amylases 34720 UNT / Endopeptidases 3800 0 UNT / Lipase 29670 UNT Delayed Release Oral Capsule Lntirx-Zpdcgggy-Vzbzkte (Creon) 12,000-38,000 -60,000 unit capsule,delayed release(DR/EC) Rmvpdd-Lrlsiskv-Hfbohel (Creon) 12,000-3 8,000 - 60,000 unit capsule,delayed release(DR/EC) 11/18/2017 10:06:05 AM EDT 1 CAP completed [facility] Naltrexone hydrochloride 50 MG Oral Tablet Naltrexone 10/16/2017 10:23:00 AM EST 50 MG completed [facility] Naltrexone hydrochloride 50 MG Oral Tablet Naltrexone 10/16/2017 10:23:00 AM EST 50 MG completed [facility] Naltrexone hydrochloride 50 MG Oral Tablet Naltrexone 10/16/2017 10:23:00 AM EST 50 MG completed [facility] Naltrexone hydrochloride 50 MG Oral Tablet Naltrexone 10/16/2017 10:23:00 AM EST 50 MG completed [facility] Naltrexone hydrochloride 50 MG Oral Tablet Naltrexone 10/16/2017 10:23:00 AM EST 50 MG completed [facility] Naltrexone hydrochloride 50 MG Oral Tablet Naltrexone 10/16/2017 10:23:00 AM EST 50 MG completed [facility] Thiamine 100 MG Oral Tablet Thiamine Hcl (Vitamin B1) Thiami ne Hcl (Vitamin B1) 01/16/2017 09:16:00 AM EDT 100 MG completed [facility] Thiamine 100 MG Oral Tablet Thiamine Hcl (Vitamin B1) Thiami ne Hcl (Vitamin B1) 01/16/2017 09:16:00 AM EDT 100 MG completed [facility] Thiamine 100 MG Oral Tablet Thiamine Hcl (Vitamin B1) Thiami ne Hcl (Vitamin B1) 01/16/2017 09:16:00 AM EDT 100 MG completed [facility] Thiamine 100 MG Oral Tablet Thiamine Hcl (Vitamin B1) Thiami ne Hcl (Vitamin B1) 01/16/2017 09:16:00 AM EDT 100 MG completed [facility] Thiamine 100 MG Oral Tablet Thiamine Hcl (Vitamin B1) Thiami ne Hcl (Vitamin B1) 01/16/2017 09:16:00 AM EDT 100 MG completed [facility] Thiamine 100 MG Oral Tablet Thiamine Hcl (Vitamin B1) Thiami ne Hcl (Vitamin B1) 01/16/2017 09:16:00 AM EDT 100 MG completed [facility] pantoprazole 40 MG Delayed Release Oral Tablet pantoprazole (PROTONIX) 40 MG tablet pantoprazole (PROTONIX) 40 MG tablet 06/20/2012 12:00:00 AM EDT aborted TAKE ONE TABLET BY MOUTH BROWN [facility] Clonidine Hydrochloride 0.1 MG Oral Tablet clonidine ( CATAPRES) 0.1 MG tablet clonidine (CATAPRES) 0.1 MG tablet 03/17/2012 12:00:00 AM EDT 0.1 mg Oral aborted Hypertension Take 1 tablet by mouth 2 (two) t imes daily. [facility] Hypertension Insurance Providers Payer name Policy type / Coverage type Policy ID Covered democrat ID Covered democrat's relationship to gallegos Policy Gal[place]os Plan Information MISSY [id number] SP [id number] [place] [id number] S [id number] MISSY I [id number] Self [id number] EXCELLUS C [id number] Spouse [id number] MEDICAID [id number] SP [id number] BCBS [facility] [facility] [place] [id number] WI2 [id number] EXCELLUS BCBS B [id number] P [id number] PENDING GOVT INSURANCE [id number] SP [id number] SELF PAY ONLY [id number] SP [id number] EXCELLUS BCBS [id number] EXCELLUS BCBS [id number] Spo [id number] [place] PPO 302/307 [id number] [place]2 [id number] BLUE CROSS BLUE SHIELD-O/P [id number] [place] [id number] Family Dependent [id number] [place] [id number] Family Dependent [id number] [facility] [id number] [place] [id number] Family Dependent [id number] [place] [id number] Family Dependent [id number] [place] PPO 302/307 [id number] WI2 [id number] EXCELLUS BCBS B [id number] P [id number] [id number] EXCELLUS H [id number] Self [id number] BLUE CROSS BLUE SHIELD -I/P [id number] [facility] [id number] [facility] HMO/PPO/POS/EPO/OTHER V [id number] 1 V [id number] [address] [address] BRIANNE L UNAVAILABLE [id number] UNAVA ILABLE Problems, Conditions, and Diagnoses Code Display Name Description Problem Type Effective Dates Data Source(s) K92.2 Gastrointestinal hemorrhage, unspecified Gastrointestinal hemorrhage, unspecified Diagnosis 07/17/2020 10:29:[address] [facility] Upper GI bleed Upper GI bleed Diagnosis 07/15/2020 07:07: [address] [facility] Surgeries/Procedures Procedure Description Date Indications Data Source(s) X-Ray Spine Thoracolumbar Ap & Lateral 2 Views 020 12:00:00 AM [facility] ([facility]) POCT GLUCOSE, DOCKED POCT GLUCOSE, DOCKED Routine 07/18/2020 11:23 AM EST 07/18/2020 11:23:[address] [facility] POCT GLUCOSE, DOCKED POCT GLUCOSE, DOCKED Routine 07/18/2020 8:11 AM EST 07/18/2020 08:11:[address] [facility] IRON BINDING CAPACITY TOTAL FE BINDING CAPACITY Routine 07/18/2020 7:57 AM EST 07/18/2020 07:57:00 AM [facility] FERRITIN FERRITIN LEVEL Routine 07/18/2020 7:57 AM EST 07/18/2020 07:57:[address] [facility] BLOOD COUNT COMPLETE AUTOMATED CBC Routine 07/18/2020 5:15 A M EST 07/18/2020 05:15:[address] [facility] GLUCOSE QUANTITATIVE BLOOD XCPT REAGENT STRIP POCT GLUCOSE, DOC KED Routine 07/17/2020 9:43 PM EST 07/17/2020 09:43:[address] [facility] GLUCOSE QUANTITATIVE BLOOD XCPT REAGENT STRIP POCT GLUCOSE, DOC KED Routine 07/17/2020 6:25 PM EST 07/17/2020 06:25:[address] [facility] COLONOSCOPY, FLEXIBLE, PROXIMAL TO SPLENIC FLEXURE W/B X, SINGLE/MULTIPLE COLONOSCOPY, FLEXIBLE, PROXIMAL TO SPLENIC FLEXURE W/BX, SINGLE/MULTIPLE 07/17/2020 5:13 PM EST Gi bleed 07/17/2020 05:13:00 PM EST - 07/17/2020 06:46:[address] [facility] GLUCOSE QUANTITATIVE BLOOD XCPT REAGENT STRIP POCT GLUCOSE, YU MIRANDA Routine 07/17/2020 4:09 PM EST 07/17/2020 04:09:[address] [facility] GLUCOSE QUANTITATIVE BLOOD XCPT REAGENT STRIP POCT GLUCOSE, YU MIRANDA Routine 07/17/2020 11:27 AM EST 07/17/2020 11:27:[address] [facility] GLUCOSE QUANTITATIVE BLOOD XCPT REAGENT STRIP POCT GLUCOSE, YU MIRANDA Routine 07/17/2020 7:33 AM EST 07/17/2020 07:33:[address] [facility] BLOOD COUNT COMPLETE AUTOMATED CBC Routine 07/17/2020 4:27 A M EST 07/17/2020 04:27:[address] [facility] GLUCOSE QUANTITATIVE BLOOD XCPT REAGENT STRIP POCT GLUCOSE, YU MIRANDA Routine 07/17/2020 4:22 AM EST 07/17/2020 04:22:[address] [facility] GLUCOSE QUANTITATIVE BLOOD XCPT REAGENT STRIP POCT GLUCOSE, YU MIRANDA Routine 07/17/2020 12:11 AM EST 07/17/2020 12:11:[address] [facility] Screening colonoscopy (procedure) COLONOSCOPY 07/17/2020 12 :00 AM EST 07/17/2020 12:00:[address] [facility] GLUCOSE QUANTITATIVE BLOOD XCPT REAGENT STRIP POCT GLUCOSE, YU MIRANDA Routine 07/16/2020 8:19 PM EST 07/16/2020 08:19:[address] [facility] GLUCOSE QUANTITATIVE BLOOD XCPT REAGENT STRIP POCT GLUCOSE, YU MIRANDA Routine 07/16/2020 6:38 PM EST 07/16/2020 06:38:[address] [facility] UPPER GI ENDOSCOPY; DX, W/WO SPECIMEN COLLECTION, BRUS MINO/WASHING (SEP PROC) UPPER GI ENDOSCOPY; DX, W/WO SPECIMEN COLLECTION, BRUSHING/WASHING (SEP PROC) 07/16/2020 6:17 PM EST Upper GI bleed 07/16/2020 06:17:00 PM EST - 07/16/2020 06:33:[address] [facility] GLUCOSE QUANTITATIVE BLOOD XCPT REAGENT STRIP POCT GLUCOSE, YU MIRANDA Routine 07/16/2020 5:00 PM EST 07/16/2020 05:00:[address] [facility] MRI ABDOMEN W/O &W/CONTRAST MATERIAL MR ABDOMEN WITH AND WITHOUT CONTRAST [id number] Routine 07/16/2020 4:31 PM EST 07/16/2020 04:31 :[address] [facility] IMMUNOASSAY TUMOR ANTIGEN QUANTITATIVE CA 19-9 CANCER ANTIGEN 1 9-9 Routine 07/16/2020 12:21 PM EST 07/16/2020 12:21:[address] [facility] ALPHA-FETOPROTEIN SERUM AFP TUMOR MARKER Routine 07/16/2020 12:21 P M EST 07/16/2020 12:21:[address] [facility] BLOOD COUNT COMPLETE AUTOMATED CBC STAT 07/16/2020 12:21 P M EST 07/16/2020 12:21:[address] [facility] CARCINOEMBRYONIC ANTIGEN CEA CEA Routine 07/16/2020 12:21 PM EST 07/16/2020 12:21:[address] [facility] COMPREHENSIVE METABOLIC PANEL COMPREHENSIVE METABOLIC PANEL STA T 07/16/2020 12:21 PM EST 07/16/2020 12:21:00 PM [facility] GLUCOSE QUANTITATIVE BLOOD XCPT REAGENT STRIP POCT GLUCOSEYU Routine 07/16/2020 11:46 AM EST 07/16/2020 11:46:[address] [facility] Magnetic resonance imaging of abdomen with contrast (procedu re) 07/16/2020 08:33:00 AM [facility] GLUCOSE QUANTITATIVE BLOOD XCPT REAGENT STRIP POCT GLUCOSEYU Routine 07/16/2020 7:57 AM EST 07/16/2020 07:57:[address] [facility] GLUCOSE QUANTITATIVE BLOOD XCPT REAGENT STRIP POCT GLUCOSEYU Routine 07/16/2020 4:11 AM EST 07/16/2020 04:11:[address] [facility] GLUCOSE QUANTITATIVE BLOOD XCPT REAGENT STRIP POCT GLUCOSE, YU MIRANDA Routine 07/16/2020 2:15 AM EST 07/16/2020 02:15:[address] [facility] GLUCOSE QUANTITATIVE BLOOD XCPT REAGENT STRIP POCT GLUCOSEYU Routine 07/16/2020 1:16 AM EST 07/16/2020 01:16:[address] [facility] GLUCOSE QUANTITATIVE BLOOD XCPT REAGENT STRIP POCT GLUCOSE, YU MIRANDA Routine 07/16/2020 12:17 AM EST 07/16/2020 12:17:[address] [facility] GLUCOSE QUANTITATIVE BLOOD XCPT REAGENT STRIP POCT GLUCOSE, YU MIRANDA Routine 07/16/2020 12:01 AM EST 07/16/2020 12:01:[address] [facility] UPPER GI ENDOSCOPY UPPER GI ENDOSCOPY 07/16/2020 12:[address] 07/16/2020 12:00:[address] [facility] GLUCOSE QUANTITATIVE BLOOD XCPT REAGENT STRIP POCT GLUCOSE, DOC KEBraulio Routine 07/15/2020 11:36 PM EST 07/15/2020 11:36:[address] [facility] BLOOD COUNT COMPLETE AUTOMATED CBC Routine 07/15/2020 9:06 P M EST 07/15/2020 09:06:[address] [facility] HEMOGLOBIN GLYCOSYLATED A1C HEMOGLOBIN A1C Routine 07/15/2020 9:06 PM EST 07/15/2020 09:06:[address] [facility] COMPREHENSIVE METABOLIC PANEL COMPREHENSIVE METABOLIC PANEL Rou owen 07/15/2020 9:06 PM EST 07/15/2020 09:06:00 PM [facility] GLUCOSE QUANTITATIVE BLOOD XCPT REAGENT STRIP POCT GLUCOSE, DOC KEBraulio Routine 07/15/2020 9:02 PM EST 07/15/2020 09:02:[address] [facility] Measurement of occult blood in stool specimen using immunoas say (procedure) [facility] 07/13/2020 09:11:[address] [facility] [address] Abd/pel w/o contrast 07/13/2020 09:11:[address] [facility] [address] Head without contrast 07/13/2020 07:33:[address] [facility] [address] Head without contrast 07/13/2020 07:33:00 PM [facility] Plain chest X-ray (procedure) 07/13/2020 06:49:00 PM [facility] Plain chest X-ray (procedure) 07/13/2020 06:49:00 PM E [facility] Plain chest X-ray (procedure) 07/13/2020 06:49:00 PM E [facility] Plain chest X-ray (procedure) 07/13/2020 06:49:00 PM [facility] SARS-CoV-2 (PCR) Interpretation 07/13/2020 12:00:00 AM [facility] Blood culture for bacteria, including anaerobic screen (proc edure) 07/13/2020 [facility] 07[facility]13/2020 12:00:00 AM [facility] SARS-CoV-2 (PCR) Interpretation 07/13/2020 12:00:00 AM [facility] Ultrasonography of abdomen (procedure) 05/30/2020 09:3 3:00 AM EDT [facility] Ultrasonography of abdomen (procedure) 05/30/2020 09:3 3:00 AM EDT [facility] Ultrasonography of abdomen (procedure) 05/30/2020 09:3 3:00 AM EDT [facility] Diabetic Foot Exam 05/22/2020 12:00:00 AM EDT [facility] ([facility]) Results ID Date Data Source [id number] 08/18/2020 12:42:00 PM EST [facility] Name Value Range Interpretation Code Description Data Marlen rce(s) Supporting Document(s) SARS coronavirus 2 RNA [Presence] in Res piratory specimen by KELLEY with probe detection [facility] This lab was ordered by [facility] a nd reported by [facility]. ID Date Data Source [id number] 07/27/2020 12:31:00 PM [facility] Name Value Range Interpretation Code Description Data Marlen rce(s) Supporting Document(s) Urine Random Creatinine 342.0 mg/dL [facility] @Instrument will autodilute@review test & document. (F5 - H,I,D,E)THERE IS NO ESTABLISHED RANGE FOR RANDOM URINE CREATININE Urine Microalbumin 48.3 mg/L 0.0-29.9 Above high normal [facility] Ur Malb/Cre Ratio (ACR) 14.1 ug/mg 0.0-30.0 [facility] ID Date Data Source [id number] 07/27/2020 11:43:00 AM [facility] Name Value Range Interpretation Code Description Data Marlen rce(s) Supporting Document(s) Leukocytes [#/volume] in Blood by Automated count 8.0 10*3/uL 4.45-[address] [facility] Erythrocytes [#/volume] in Blood by Automated count 4.33 10*6/uL 4.3- 6.1 [facility] Hemoglobin [Moles/volume] in Blood 11.7 g/dL 13-18 Below low no rmal [facility] Hematocrit [Volume Fraction] of Blood by Automated count 36.5 % 42-52 Below low normal [facility] Erythrocyte mean corpuscular volume [Ent itic volume] in Cord blood by Automated count 84.3 fL 80-96 N [facility] Erythrocyte mean corpuscular hemoglobin [Entitic mass] by Automated count 27.0 pg 27-31 N [facility] Erythrocyte mean corpuscular hemoglobin concentration [Mass/volume] in Cord blood 32.1 g/dL 33-[address] [facility] Erythrocyte distribution width [Entitic volume] by Automated cou nt 16 % 11-15 Above high normal [facility] Platelets [#/volume] in Blood by Automated count 442 10*3/uL 130-472 N [facility] Platelet mean volume [Entitic volume] in Blood 9.0 fL 9.1-13. 1 Below low normal [facility] Neutrophils/100 leukocytes in Blood by Automated count 71.1 % 41- 77 N [facility] Neutrophils [#/volume] in Blood by Automated count 5.7 U 1.7-7.6 N [facility] Lymphocytes/100 leukocytes in Blood by Automated count 20.8 % 14- 46 N [facility] Lymphocytes [#/volume] in Blood by Automated count 1.7 U 0.6-4.6 N [facility] Monocytes/100 leukocytes in Blood by Automated count 6.8 % 4-12 N [facility] Monocytes [#/volume] in Blood by Automated count 0.5 U 0.2-1.2 N [facility] Eosinophils/100 leukocytes in Blood by Automated count 0.1 % 0-7 N [facility] Eosinophils [#/volume] in Blood by Automated count 0.0 U 0.0-0.5 N [facility] Basophils/100 leukocytes in Blood by Automated count 0.9 % 0.4-1 .3 N [facility] Basophils [#/volume] in Blood by Automated count 0.1 U 0.0-0.2 N [facility] NUCLEATED RED BLOOD CELL 0 % [facility] NUCLEATED RED BLOOD CELL# 0 U [facility] Immature granulocytes [Presence] in Blood by Automated count 0-2 N [facility] Immature granulocytes [#/volume] in Blood by Automated count 0.0 U 0-0.1 [facility] Manual Differential panel - Blood NO [facility] ID Date Data Source [id number] 07/27/2020 12:08:00 PM [facility] Name Value Range Interpretation Code Description Data Marlen rce(s) Supporting Document(s) Hemoglobin A1c % 9.3 % 4.0-6.0 Above high normal [facility] The following ranges may be u sed for interpretation of results: HGBA1C degree of glucose control: Greater than 8%: Action Suggested * Less than 7%: Goal of Diabetic Therapy Less than 6%: NormalFactors such as duration of diabetes, adherence to therapyand the age of the patient should also be considered inassessing the degree of blood glucose control.* High risk of developing senior living complications such asretinopathy, nephropathy, neuropathy, cardiopathy, etc. Some danger of hypoglycemic reaction in Type I diabetics.Some glucose intolerant individuals and "Sub Clinical"diabetics may demonstrate HGBA1C levels in this area. Glucose mean value [Moles/volume] in Blood Estimated f rom glycated hemoglobin 220 mg/dL [facility] An A1C of 7% - the goal of diabetic ther apy - is equivalentto an EAG of 154 mg/dl. ID Date Data Source [id number] 07/27/2020 12:51:00 PM [facility] Name Value Range Interpretation Code Description Data Marlen rce(s) Supporting Document(s) Urea nitrogen [Mass/volume] in Serum or Plasma 13 mg/dL 9-23 N [facility] Sodium [Moles/volume] in Serum or Plasma 132 mmol/L 132-146 N [facility] Potassium [Moles/volume] in Serum or Plasma 4.1 mmol/L 3.5-5.5 [facility] Chloride [Moles/volume] in Serum or Plasma 93 mmol/L 99-109 Belo w low normal [facility] Carbon dioxide, total [Moles/volume] in Serum or Plasma 30 mmol/L 20 -31 [facility] Anion gap in Serum or Plasma 13 mmol/L 8-16 N [facility] Glucose [Mass/volume] in Serum or Plasma 268 mg/dL 74-106 Above high normal [facility] Creatinine 1.1 mg/dL 0.5-1.1 [facility] Glomerular filtration rate/1.73 sq M.pre dicted [Volume Rate/Area] in Serum or Plasma Greater Than 60 ABOVE 60 [facility] Alanine aminotransferase [Enzymatic acti vity/volume] in Serum or Plasma by With P-5'-P 33 U/L 10-49 N [facility] ital Aspartate aminotransferase [Enzymatic ac tivity/volume] in Serum or Plasma by With P-5'-P 20 U/L 0-33 N [facility] pital Alkaline phosphatase [Enzymatic activity/volume] in Serum or Plasma 208 U/L 45-129 Above high normal [facility] Calcium [Mass/volume] in Serum or Plasma 9.3 mg/dL 8.5-10. 1 No range defined, or normal ranges don't apply [facility] Repeated by: Cristina Jacobs 07/27/20 1251. Result Confirmation: 9.1 # mg/dL Bilirubin.total [Mass/volume] in Serum or Plasma 0.7 mg/dL 0.3-1.2 N [facility] Albumin [Mass/volume] in Serum or Plasma by Bromocresol purple (BCP) dye binding method 3.5 g/dL 3.2-4.8 N [facility] ital Protein [Mass/volume] in Serum or Plasma 6.8 g/dL 5.7-8.2 [facility] ID Date Data Source [id number] 07/27/2020 12:51:00 PM [facility] Name Value Range Interpretation Code Description Data Marlen rce(s) Supporting Document(s) Triglycerides 106 mg/dL 0-150 [facility] Cholesterol 184 mg/dL 120-200 [facility] HDL Cholesterol 74 mg/dL [facility] HDL Less than 40 mg/dL: Major risk for CHDHDL Greater than 59 mg/dL: Low risk for CHD LDL Cholesterol, Calc 89 mg/dL 0-100 N [facility] ID Date Data Source [id number] 07/27/2020 12:51:00 PM [facility] Name Value Range Interpretation Code Description Data Marlen rce(s) Supporting Document(s) Thyrotropin [Units/volume] in Serum or Plasma by Detec tion limit <= 0.005 mIU/L 1.38 u[iU]/mL 0.35-5.50 [facility] ID Date Data Source [id number] 07/25/2020 11:32:00 AM EST [facility] Patient Name: FALGUNI ALSTON JR : 1975 Sex: M Pt Unit #: [id number] [facility] Provider: Visit Date/Time: 07/25/20 Primary Insurance: [facility] Secondary Insurance: Self Pay Intake Vital Signs 07/25/20 11:33 Current Height 5 ft 8 in Current Weight 159 lb 8 oz Weight Measurement Method Standing Scale BMI 24.2 BP 100/72 Blood Pressure Location Lt brachial Position Sitting Respiration 16 Pulse 117 H Pulse Source Pulse Oximeter Pulse Oximetry (%) 98 Intake Visit Reasons: Hospital Discharge Follow-up Nurse Note: 45 year old male came to the ER 07-20-2020 because he fainted 3-4x that day. Was admitted here for 2 days and transferred to [place] to [facility] because of his blood count.Had endoscopy and colonoscopy done that were normal per pt. Did have 2 units of blood. Discharged on 07-17-2020. No further fainting. Back is painful from the falls.Is known d iabetic and checks his sugar 3-4 times a day. Bad Credit Collector Required: No Accompanied by: Self / Same as Patient Is patient in pain?: Yes (back) Pain scale (1-10): 7 Allergies No Known Drug Allergies Allergy (Verified 07/13/20 18:05) Fall Risk History of falls: Yes Ambulatory Aid:: None Gait/Transferring:: Weak Medications:: No High Risk Medications HIV Testing Offer - ages 13-64 Requirement for HIV testing offer been met?: Patient reports past refusal Coronavirus Screening Screening Have you traveled outside of [facility] or [facility] in the last 14 days.: Yes Has patient experienced coronavirus symptoms: No [facility] Medical History (Updated 07/25/20 @ 14:03 by Marsha Velez DO) Alcohol abuse Chronic pancreatitis Diabetes mellitus, type 2 DKA (diabetic ketoacidosis) ETOH abuse Gastroesophageal reflux disease History of drug abuse History of varicella Hypertension Paroxysmal A-fib Recurrent DKA Right upper quadrant abdominal pain Smoker S ubstance abuse pneumococcal 23-louise ps vaccine Performing Provider: Marsha Velez DO Administered by: Jada Carnes on 07/25/20 12:39 Surgical History History of vasectomy Family History Mother No problems noted. Father No problems noted. Sister No problems noted. Son No problems noted. Son No problems noted. Daughter No problems noted. Daughter No problems noted. 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 pets and animals: Yes pets and animals: dog(s) leisure activities: hunting, fishing and other Hx Recent Travel (where): No caffeine: No high-fat food intake: 0-1 times daily daily servings fruits/ve-4 daily servings of milk/calcium: 2-4 eating out: rarely or never reads food labels: usually or always during the past year weight has: remained stable Smoking Status: Current every day smoker quit status: considering quitting alcohol intake: current alcohol intake frequency: 0-2 drinks per day substance use type: does not use special marielle needs: No seatbelt use: always helmet use: Yes drive intox or ride w/ intox line haul truck driver: No water heater temp set < 120 deg: Yes working smoke detector in home: Yes fire extinguisher in home: Yes carbon monox detector in home: Yes firearms in home: Yes firearms unloaded and locked: Yes victim of physical abuse: No victim of emotional abuse: No HPI Additional HPI HPI Details: 45 y/o male with diabetes, htn, hld, tobacco use, GERD, is here for f/u GI bleed, admitted to [facility] and received 2 units PRBC he feels better now he does have a fractured t12 from falling recently and wants medicine and treatment for pain he denies other complaints Review of Systems Const Denies anorexia, Denies fatigue, Denies fever(s), Denies weight gain and Denies weight loss Eyes Denies blurry vision, Denies change in vision, Denies dry eyes, Denies irritation, Denies itchy eyesand Denies loss of vision ENT Denies abnormal hearing, Denies dysphagia, Denies lip swelling, Denies nasal congestion, Denies nasal discharge, Denies sinus pain, Denies sore throat and Denies throat swelling Card Denies chest pain, Denies pedal edema, Denies lightheadedness, Denies palpitations and Denies dyspnea Resp Denies dyspnea GI Denies abdominal pain, Denies change in bowel habits, Denies dysphagia, Denies early satiety, Deniesheartburn, Denies diarrhea, Denies nausea and Denies vomiting Denies difficulty urinating, Denies flank pain, Denies urinary frequency, Denies urinary incontinence and Denies urinary urgency Musc Reports back pain Skin/Breast Denies breast pain, Denies change in pigmentation, Denies lesions, Denies nail changes, Denies rash and Denies unusual bruising Neuro Denies abnormal hearing and Denies loss of vision Psych Denies abnormal sleep pattern, Denies anxiety, Denies change in appetite, Denies depression and Denies irritability Endo Denies fatigue and Denies palpitations Roderick/Lymph Denies easy bleeding, Denies easy bruising and Denies lymphadenopathy Aller/Immun Denies urticaria, Denies itchy eyes, Denies lip swelling, Denies seasonal rhinorrhea and Denies throat swelling Exam Const General: cooperative, healthy appearing, no acute distress, well developed and well groomed Nutritional Appearance: well nourished Orientation: alert, awake and oriented x3 [facility] Head: normal to inspection, normocephalic and atraumatic Ears: hearing grossly normal bilaterally Eyes General: appearance normal, both eyes and all related structures Visual Weldon: normal visual weldon by confrontation Alignment and Position: alignment normal EOM: EOM intact bilaterally Neck Neck: normal visual inspection, full ROM, no lymphadenopathy, supple and no JVD present Neck mass: No Thyroid: thyroid normal Carotids: normal carotid upstroke Chest Chest: normal inspection of the chest Resp Effort Inspection: normal respiratory effort Auscultation: clear to auscultation bilaterally Percussion: percussion normal Cardio Jugular venous pressure: no JVD Palpation: normal PMI Rate: regular rate Rhythm: regular rhythm Heart Sounds: S1 normal and S2 normal Pulses: normal peripheral pulses GI Inspection: Yes normal to inspection Palpation: soft Auscultation: normal bowel sounds General: deferred Musc Cervical Spine: normal cervical lordosis and cervical ROM normal Thoracic/Lumbar Spine: thoraco-lumbar ROM normal and thoracic spinal tenderness Neuro General: patient alert, patient awake, patient oriented x3, gait normal, moves all extremities and normal light touch, pain and propioception Cranial Nerves: CN's II-XII intact bilaterally Cognition: normal cognition Speech: speech normal Gait: normal gait Motor: muscle tone normal throughout and strength 5/5 throughout Sensory Exam: no sensory deficits noted Extrem General: normal to inspection, full ROM, capillary refill normal, no clubbing, cyanosis or edema andno muscle atrophy Psych Appearance: grossly normal and well kempt Mental Status: mental status grossly normal Speech and Movement: speech and movement normal Affect: normal affect Attitude: cooperative Thought Process: normal Thought Content: normal Insight: insight good Judgment: judgment good Immunizations pneumococcal 23-louise ps vaccine Performing Provider: Marsha Velez DO Administered by: Jada Carnes on 07/25/20 12:39 Dose Route Admin Location Lot Number Expiration Date ND Manufactu rer 0.5 mL IM Left arm [id number] 12/29/21 0984-7417-99 [employer] D VIS Given Date VIS Provided VIS Publication Date 07/25/20 Single Vaccine 19 Eligibility Eligibility Date Funding Source Not [facility] Eligible 07/25/20 Private Assessment Plan Assessment Plan (1) Hospital discharge follow-up: Code(s): Z09 - Encounter for follow-up examination after completed treatment for conditions other than malignant neoplasm Plan - Marsha Velez DO: repeat cbc f/u GI doctor for GI bleed if condition worsens, then go ER he agrees to plan (2) Closed T12 fracture: Status: Acute Code(s): S22.089A - Unspecified fracture of T11-T12 vertebra, initial encounter for closed fracture Category: Medical Plan - Marsha Velez DO: tylenol prn rest avoid heavy lifting f/u orthopedics Orders: Referrals: Orthopedics Referral (3) Diabetic neuropathy, type II diabetes mellitus: Status: Chronic Code(s): E11.40 - Type 2 diabetes mellitus with diabetic neuropathy, unspecified Category: Medical Qualifiers: Diabetes mellitus 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 Justa Maurer continue current medical treatment labs ordered if condition worsens, then go to ER Orders: Orders: CMP Today LIPID PANEL Today TSH w/ reflex to Free T4 Today Microalbumin/Creat Ratio - ACR Today EKG Standard 12 Lead Today HGBA1C + EAG Today Referrals: Retinal Imaging - Referral (4) Mixed hyperlipidemia: Status: Chronic Code(s): E78.2 - Mixed hyperlipidemia Category: Medical Plan - Marsha Velez DO: stable labs ordered continue current medical treatment Orders: Orders: CMP Today LIPID PANEL Today TSH w/ reflex to Free T4 Today Microalbumin/Creat Ratio - ACR Today EKG Standard 12 Lead Today CBC W AUTO DIFF Today HGBA1C + EAG Today (5) Essential hypertension: Status: Chronic Code(s): I10 - Essential (primary) hypertension Category: Medical Plan - Marsha Velez DO: stable labs ordered continue current medical treatment if condition worsens, then go to ER Orders: Orders: CMP Today LIPID PANEL Today TSH w/ reflex to Free T4 Today Microalbumin/Creat Ratio - ACR Today EKG Standard 12 Lead Today CBC W AUTO DIFF Today HGBA1C + EAG Today Orders Other Orders: Orders: INJ - Pneumovax Vaccine Today Z23 CMP Today F17.209, I48.0 LIPID PANEL Today F17.209, I48.0 TSH w/ reflex to Free T4 Today F17.209, I48.0 Microalbumin/Creat Ratio - ACR Today F17.209, I48.0 EKG Standard 12 Lead Today F17.209, I48.0 CBC W AUTO DIFF Today E11.65, F17.209, I48.0 HGBA1C + EAG Today F17.209, I48.0 Follow Up: 1 (test results) <Electronically signed by Marsha Velez DO> 07/25/20 1658 Name Value Range Interpretation Code Description Data Marlen rce(s) Supporting Document(s) ID Date Data Source [id number] 07/18/2020 01:27:[address] [facility] Name Value Range Interpretation Code Description Data Marlen rce(s) Supporting Document(s) Discharge Summary [facility] OQIOKm8xZdJPWnVb48/QBIozKWHze9UuEBhdTRk3IXfsJECwX8CbKRZ0uJ4nBPE5PYmFWlHiGeGbHZLe lbm [file] AgICAgICAgICAgICAgICAgICAgICAgICAgICAgICAgICAgICAgICAgICAgICAgICAgICAgICAgICAgIC PsQQGdHXKjZSIqDRRgUW8POPUmGPNgNSFuGPCiKDVw ICAgICAgICAgICAgICAgICAgICAgICAgICAgICAgICAgICAgICAgICAgICAgICAgICAgICAgICAgICAg IRZjUVRfHWRrOGEyYINaPBExYAWdVLDzOG7XLCHnVZViIOHbQVTnUQZpZVBqWRBeDXCkFLKlQLApSEFd ICAgICAgICAgICAgICAgICAgICAgICAgICAgICAgIC BnQNXbBFMeMWTwUHXwKLQmUOQoMCPiBVZpVHBiKYRyLGVsGD1THEJsFSPbVKWbWPPaJXIxIALePSCrQY AgICAgICAgICAgICAgICAgICAgICAgICAgICAgICAgICAgICAgICAgICAgICAgICAgICAgICAgICAgIC OcZKIgJSJbLDMqOEBrFDQoSJ0PDRHmHUWuUHBwWJIq ICAgICAgICAgICAgICAgICAgICAgICAgICAgICAgICAgICAgICAgICAgICAgICAgICAgICAgICAgICAg OFBzLUIrLANwOOVvTEGdUMXxHUKdZLYoMBJyWF9OBJZkBSIeAHVkKBRaSFYsUOUzFFQxYSEtVIKsIEMf ICAgICAgICAgICAgICAgICAgICAgICAgICAgICAgIC EkMXWcFKOfDPNsPLSxZOPgTUNmLOUqKZFnBJYvASJsIZFxYLYnBS4OEUAdAAPiCKZsUFUfPIVgUYYcHA AgICAgICAgICAgICAgICAgICAgICAgICAgICAgICAgICAgICAgICAgICAgICAgICAgICAgICAgICAgIC DgYWJaWYHqIQJlZMZfYQKsKTMpKZ4YICIvRWQbDJXr ICAgICAgICAgICAgICAgICAgICAgICAgICAgICAgICAgICAgICAgICAgICAgICAgICAgICAgICAgICAg ITMmDNBbEIYlGRRvYWWfJLOlVWVbGKBrPPNiFTWoQW3IXOVmRQStJEXiYCGvLHZpHHHvLZNlERJeZNLn ICAgICAgICAgICAgICAgICAgICAgICAgICAgICAgIC PrTCCuQUZiORQjELWiPAKwEUNyOXTbXGMsDWDuIRTjNSUmNTMhPGTzRB4JXYOgZXCkXMFbUHOiEDRxMH AgICAgICAgICAgICAgICAgICAgICAgICAgICAgICAgICAgICAgICAgICAgICAgICAgICAgICAgICAgIC XtDYLiJSLdGXBbXYEpTILpGNNyEIXoQW0NIL36kXAa i2F3WTTtYD1lucz/Fv4OPKrorbFvcDJcLG6EJiEiEX7tui1NOpSiRH6wbo1SLEaLEmQdQ7Q1mUChRSYz AAUHEiBjK19wKOerEc24JPyyWEJdDkTyBEa8Ve9DOdUqF2viBHIlCbV4WFUqTlC9WUJqMsP3NHEbSfTi OBUuQCJiEINwHZRUTZA8OKKgRvYqXWptRM0Fx7MmpC A2DQo+Wj2KES0ab0QoREdfLbLeQG6uts4CEKwGJdKtQ5CpgjJ6WHTvKGZtHe5TWUDqNUVmdJHoQdQsLE OBUtExI5QvpQ84WULVLe4+TVxmajHbTrhEEdNrMVKkc6XoYJa0SJ2DNSYgVLb4vKAgDEcsH1jcpnzkKU T5fS9mzlxmRuyiVuPoNLLfY2EbpCUkRLONIRRznTZu LG3oJA3mWITzQYY4EyB3BCGFDJ9QSZNyBOBmtSGgAAPoSZAPMJ4VCHdvLRZ4NWGvzeJvyEWpWJssEW7C YXJlbnQgMzIgMCBSDQo+Km5SQX7ch3ZcIDvcUKSfML5yei2XRImICxTjR8K8aXXnW9O7FXviZv1HASOq TSHoDnZpHBPTVFtoKF6OEU1fyvW0WS9UsYDfHAOfBR NwtMJyMMm1A83cwMQuJQpgEN2YUAK+Shaye+Pi6JCBPkXXXbQNDfFuUjXFVJPjPeN7LiO2XOr6UwI9YdGL 18hZthqwEcCIlmEI3XAG0rWYXgDDUEJF3YbARsaO8nmfQeWnHcUOFGOfCzB39qzCBwFVKhTQBhDRZqCo 9JZGKtM0IdvgYebHbhzxMsIGJiRNKFCF1GGVbleqUl xIXhbRdcYB39vOlnGP6DZx9XUoXuAF6ndm9JqVUlZm9UQNSlDR2MNEGuTTLdEDPdSAQ9HOSwZpTiHBmg TLKyDNVkMXE1KQCuXZFdAF9LRuZpLNXlMsJ7CFWaNRGaOBKhac1JSIFoWMGbDTMoNBNwAHFqZPXuDGme LSOvGLHtMLG5TVRgZBOgIK0CSfTzCZUsDAP2RdYhLX JgCIXsdb4BPDHrLUGlVddePIPyCIOyEZWdUZfsMNWnOZF0IzysZRBrKHXcET5ULuWaNFIbTOV2XDXzXT GxSDSigv2VCUWyYNUpNJOmFGZoNWGmKGYuLLubTVXeHIMzEeG0FMUePNLaLO5OEsBaAPYdKCZmFgAgXO AfWQPlun2CQAPmPPYqCgKlRSHqRYEqVQCjDGthOKCe WLC0EwYyRTJsZUClHW6XWwXiHROqDNY9KKeeGQBbDIVdbd1ZOMNtOVTuBeBgMhDrZMJdSADpSMzlFNWg ZSS7VwLkLUPgPEVxMD2GCiMqWZRgFWc3MOBpYRFqKRIvmt7ESWJxAKXrEoywCUVwNVAfTQYxZQziTTGq ASD7QQscBJYoNRNjQJ8PIpZaWSNyEVs1ARGtCMKpLZ Aeqc5EHPLpMOOjNXA1WQTuXPYcRPWoPDvgZAHwLLO8JkGmNNXxIFPmIT6GHdIzCXInLcIyAWAdTOFyRD Podf3GCJVbISHrUVF8RoRiOOUiTUKwPNpiAYYbKJSkUqq7KQRyBYFdTQ6BQtHqACUlSnD0IAOiUCUkDS Mklj2BXJTbJFMjOHd0EYYxUURnCOYcFRfiNXEcBJG0 JBraUMSfVBPiPL5XYeDnCUFbCzSsHBVrAAMiVCMrpm6PGEYxJCDyEiI4OMGtAXXfMXVaKIghXGGmXXQ1 XCd3FZFiUILnZS8BUtRjXJIzZszaFJLrUDPtLMNprc4YHBFtMWLdRPYbQhGsXAWhIELeBEupLYEmGQF8 GNQ8MSPoQZWlGA7BSvYkSBqhSIYOQhk4HLqyD9m0KC EzTP5ZS6Oeb1ZySzBaXQLTYBfjTC9rkeUlOYEhMn4YR8oDGbf1VfmbNMi6ODYcE2QvRzWqDcW2AWWlRf Z1FAx7JHFaEO6nPLNyWTK5NySfYUW8THV4ZPYrBnYlICXoGdVjTgk9IuRdKqYzCW7TJg7VBeG5OZG4rU YfKw7IPxs7SDQZAkJaLB9YANv= ID Date Data Source [id number] 07/18/2020 11:26:05 AM [facility] Value Range Interpretation Code Description Data Marlen rce(s) Supporting Document(s) Glucose [Mass/volume] in Capillary blood by Glucometer 412 mg/dL 70- 140 H [facility] ID Date Data Source [id number] 07/18/2020 08:13:33 AM [facility] Value Range Interpretation Code Description Data Marlen rce(s) Supporting Document(s) Glucose [Mass/volume] in Capillary blood by Glucometer 281 mg/dL 70- 140 [facility] ID Date Data Source [id number] 07/18/2020 08:37:36 AM [facility] Value Range Interpretation Code Description Data Marlen rce(s) Supporting Document(s) Ferritin [Mass/volume] in Serum or Plasma 89 ng/ml 30-400 [facility] ID Date Data Source [id number] 07/18/2020 11:16:16 AM [facility] Value Range Interpretation Code Description Data Marlen rce(s) Supporting Document(s) Iron [Mass/volume] in Serum or Plasma 12 ug/dl 59-158 [facility] Transferrin [Mass/volume] in Serum or Plasma 205 mg/dL 200-360 [facility] Iron binding capacity [Mass/volume] in Serum or Plasma 285 ug/dl 228 -428 [facility] Iron saturation [Mass Fraction] in Serum or Plasma 5.0 % 20-55 [facility] ID Date Data Source [id number] 07/18/2020 06:11:08 AM [facility] Value Range Interpretation Code Description Data Marlen rce(s) Supporting Document(s) Leukocytes [#/volume] in Blood by Automated count 3.4 10*3/uL 4-10 L [facility] Erythrocytes [#/volume] in Blood by Automated count 3.18 10*6/uL 4.6- 6.1 [facility] Hemoglobin [Mass/volume] in Blood 9.1 g/dL 13.5-18 [facility] Hematocrit [Volume Fraction] of Blood by Automated count 27.4 % 4 1-53 [facility] Erythrocyte mean corpuscular volume [Entitic volume] by Auto mated count 86.0 fL 80-96 [facility] Erythrocyte mean corpuscular hemoglobin [Entitic mass] by Automated count 28.4 pg 27-33 [facility] Erythrocyte mean corpuscular hemoglobin concentration [Mass/volume] by Automated count 33.1 g/dL 32.0-[facility] width [Ratio] by Automated count 17.2 % 11.5-14.5 H [facility] Platelets [#/volume] in Blood by Automated count 229 10*3/uL 150-400 [facility] ID Date Data Source [id number] 07/17/2020 09:48:[address] [facility] Name Value Range Interpretation Code Description Data Marlen rce(s) Supporting Document(s) Progress Note [facility] [id number]/[id number]B1yT8bUSS7JZgTPzJsPvGtBZKa lbm [file] [id number]== ID Date Data Source [id number] 07/17/2020 09:48:[address] [facility] Name Value Range Interpretation Code Description Data Marlen rce(s) Supporting Document(s) Glucose [Mass/volume] in Capillary blood by Glucometer 220 mg/dL 70- 140 H [facility] ID Date Data Source [id number] 07/17/2020 06:26:[address] [facility] Name Value Range Interpretation Code Description Data Marlen rce(s) Supporting Document(s) Glucose [Mass/volume] in Capillary blood by Glucometer 162 mg/dL 70- 140 H [facility] ID Date Data Source [id number] 07/20/2020 08:43:[address] [facility] Surgical Pathology ReportName: Braulio ALSTONMRN: [id number] Number: [id number] Date: 07/17/2020 18:11Received Date: 07/18/2020 10:10Physician(s): ALEX ARELLANO MD OUEIDA, ZAHER, MDSpecimen(s) ReceivedA: Ascending colon polypB: Transverse colon polypC: Sigmoid polypClinical HistoryGI bleed.DiagnosisA) COLON, ASCENDING, BIOPSY: FRAGMENTS OF TUBULAR ADENOMA. NEGATIVE FORHIGH-GRADE DYSPLASIA. B) COLON, TRANSVERSE, BIOPSY: FRAGMENTS OF TUBULAR ADENOMA. NEGATIVE FORHIGH-GRADE DYSPLASIA. C) COLON, SIGMOID, BIOPSY: FRAGMENTS OF TUBULAR ADENOMA. NEGATIVE FORHIGH-GRADE DYSPLASIA. Ariel Parmar MD;Resident PathologistElectronically Signed By Delaney Mendoza MD, Attending Pathologist 07/20/202008:43:44Processed at [facility] Pathology Laboratory at [facility], [address] [place] [address]. [facility], [address] [place] [address]. The attending pathologist named above attests that he/she haspersonally reviewed the relevant preparation(s) for the specimen,performed microscopic examination when indicated, and rendered the finaldiagnosis. Unless 'gross-only' is specified, the final diagnosis is basedon a microscopic examination of representative government relations sections of tissue.Gross DescriptionThe specimen is received in three parts.Part A is received in formalin labeled with the patient's name "Jimenez" and "ascending colon polyp". It consists of multiple soft tantissue fragments measuring from 0.2 cm to 0.9 cm in greatest dimensionadmixed with debris. Totally submitted in one cassette.Part B is received in formalin labeled with the patient's name "Jimenez" and "transverse polyp". It consists of three soft cota tissuefragments measuring from 0.3 cm to 0.8 cm in greatest dimension. Totallysubmitted in one cassette. Part C is received in formalin labeled with the patient's name "Jimenez" and "sigmoid polyp". It consists of a single soft cota tissuefragment measuring 0.9 cm in greatest dimension. Totally submitted in onecassette. CTC/pwsThis report may include one or more immunohistochemical stain results thatuse analyte specific reagents. All positive and negative controls havebeen reviewed by the attending pathologist and are satisfactory. The testswere developed and their performance characteristics determined by [facility] Pathology department. They have not been cleared or approved by the USFood and Drug Administration. The FDA has determined that such clearanceor approval is not necessary. Name Value Range Interpretation Code Description Data Marlen rce(s) Supporting Document(s) ID Date Data Source [id number] 07/17/2020 04:23:[address] [facility] Name Value Range Interpretation Code Description Data Marlen rce(s) Supporting Document(s) Glucose [Mass/volume] in Capillary blood by Glucometer 91 mg/dL 70- 140 [facility] ID Date Data Source [id number] 07/17/2020 03:24:[address] [facility] Name Value Range Interpretation Code Description Data Marlen rce(s) Supporting Document(s) History and Physical [facility] [id number]tQThWiAfZxKVYm [facility] [file] [id number]= ID Date Data Source [id number] 07/17/2020 11:32:[address] [facility] Name Value Range Interpretation Code Description Data Marlen rce(s) Supporting Document(s) Glucose [Mass/volume] in Capillary blood by Glucometer 113 mg/dL 70- 140 [facility] ID Date Data Source [id number] 07/17/2020 07:35:48 AM [facility] Value Range Interpretation Code Description Data Marlen rce(s) Supporting Document(s) Glucose [Mass/volume] in Capillary blood by Glucometer 154 mg/dL 70- 140 H [facility] ID Date Data Source [id number] 07/17/2020 04:46:[address] [facility] Name Value Range Interpretation Code Description Data Marlen rce(s) Supporting Document(s) Leukocytes [#/volume] in Blood by Automated count 4.6 10*3/uL 4-10 [facility] Erythrocytes [#/volume] in Blood by Automated count 3.18 10*6/uL 4.6- 6.1 L [facility] Hemoglobin [Mass/volume] in Blood 8.9 g/dL 13.5-18 L [facility] Hematocrit [Volume Fraction] of Blood by Automated count 27.2 % 4 1-53 L [facility] Erythrocyte mean corpuscular volume [Entitic volume] by Auto mated count 85.5 fL 80-96 [facility] Erythrocyte mean corpuscular hemoglobin [Entitic mass] by Automated count 28.1 pg 27-33 [facility] Erythrocyte mean corpuscular hemoglobin concentration [Mass/volume] by Automated count 32.9 g/dL 32.0-36.0 [facility] E[facility] distribution width [Ratio] by Automated count 16.8 % 11.5-14.5 H [facility] Platelets [#/volume] in Blood by Automated count 210 10*3/uL 150-400 [facility] ID Date Data Source [id number] 07/17/2020 04:36:[address] [facility] Name Value Range Interpretation Code Description Data Marlen rce(s) Supporting Document(s) Glucose [Mass/volume] in Capillary blood by Glucometer 223 mg/dL 70- 140 [facility] ID Date Data Source [id number] 07/17/2020 12:24:[address] [facility] Name Value Range Interpretation Code Description Data Marlen rce(s) Supporting Document(s) Glucose [Mass/volume] in Capillary blood by Glucometer 238 mg/dL 70- 140 [facility] ID Date Data Source [id number] 07/16/2020 08:23:52 PM [facility] Value Range Interpretation Code Description Data Marlen rce(s) Supporting Document(s) Glucose [Mass/volume] in Capillary blood by Glucometer 109 mg/dL 70- 140 [facility] ID Date Data Source [id number] 07/16/2020 07:34:[address] [facility] Name Value Range Interpretation Code Description Data Marlen rce(s) Supporting Document(s) Glucose [Mass/volume] in Capillary blood by Glucometer 127 mg/dL 70- 140 [facility] ID Date Data Source [id number] 07/19/2020 05:30:[address] [facility] Surgical Pathology ReportName: Braulio ALSTONColtMRN: [id number] Number: [id number] Date: 07/16/2020 18:32Received Date: 07/17/2020 11:44Physician(s): ALEX ARELLANO MD GUPTA, PRATISHTHA, MDSpecimen(s) ReceivedA: Duodenum biopsyB: Antrum biopsyC: GE junction biopsyClinical HistoryUpper GI bleed.DiagnosisA) DUODENUM, BIOPSY: TUBULAR ADENOMA (NO HIGH-GRADE DYSPLASIA SEEN).B) STOMACH, ANTRUM, BIOPSY: MILD CHRONIC GASTRITIS WITH FOCAL INTESTINALMETAPLASIA. NO H. PYLORI OR DYSPLASIA SEEN.C) GASTROESOPHAGEAL JUNCTION, BIOPSY: HERPES SIMPLEX ESOPHAGITIS . (SeeMicroscopic Description.) Ariel Parmar MD;Resident PathologistElectronically Signed By Silvia Jennings M.D., Attending Qstjudgnfoh05/12/2020 17:30:07Processed at [facility] Pathology Laboratory at [facility], [address] [place] [id number]. The attending pathologist named aboveattests that he/she has personally reviewed the relevant preparation(s)for the specimen, performed microscopic examination when indicated, andrendered the final diagnosis. Gross DescriptionThe specimen is received in three parts.Part A is received in formalin labeled with the patient's name "Jimenez" and "duodenum". It consists of four soft cota tissue fragmentsmeasuring from less than 0.1 cm to 0.3 cm in greatest dimension. Totallysubmitted in one cassette. NOTE: smallest fragment may not surviveprocessing.Part B is received in formalin labeled with the patient's name "Jimenez" and "antrum". It consists of two soft cota tissue fragmentsmeasuring 0.1 cm and 0.7 cm in greatest dimension. Totally submitted inone cassette.Part C is received in formalin labeled with the patient's name "Jimenez" and "GE junction". It consists of four soft cota tissue fragmentsmeasuring from 0.1 cm to 0.2 cm in greatest dimension. Totally submittedin one cassette. CTC/pws Microscopic DescriptionSections from part C reveal squamous mucosa and granulation tissue withmoderate acute inflammation. A focus of epithelial cells displaysmultinucleation, nuclear molding, and peripheral margination of thechromatin. An HSV stain performed is positive in this area, and a GMSstain is negative for fungal organisms.This report may include one or more immunohistochemical stain results thatuse analyte specific reagents. All positive and negative controls havebeen reviewed by the attending pathologist and are satisfactory. The testswere developed and their performance characteristics determined by [facility] Pathology department. They have not been cleared or approved by the USFood and Drug Administration. The FDA has determined that such clearanceor approval is not necessary. Name Value Range Interpretation Code Description Data Marlen rce(s) Supporting Document(s) ID Date Data Source [id number] 07/16/2020 05:41:[address] [facility] MR ABDOMEN WITH AND WITHOUT CONTRAST 741 83FINAL RESULTInterpreted by:Ad Estevez MDHISTORY: Possible pancreatic mass. Incidentally, the patient does have a history of chronic pancreatitis as well as an acute episode of pancreatitis in February 2020.TECHNIQUE: Multiplanar multisequence MR imaging of the abdomen was performed before and after the intravenous injection of 7.5 mL of Gadavist. The images were acquired and reconstructed according to the pancreatic mass and MRCP protocols.COMPARISON: Images from a CT abdomen pelvis dated 12/08/2013.FINDINGS:LUNG BASES: There is a small left pleural effusion with compressive atelectasis. A trace right pleural effusion is also noted.LIVER: The liver parenchyma is homogeneous. There is some loss of signal on the T1- weighted opposed phase sequence suggestive of hepatic steatosis. There aren't no liver lesions. The liver contour is smooth.SPLEEN: The spleen is normal.GALLBLADDER AND BILIARY TREE: There are no filling defects identified within the gallbladder. The common duct is not dilated. It does appear somewhat irregular which may be artifactual. There are no obvious filling defects. There is no intrahepatic biliary ductal dilatation.PANCREAS: Again noted is near complete replacement of [...] contrast enhancement. The pancreatic duct is not well-visualized.ADRENAL GLANDS: There are no adrenal masses.KIDNEYS: The kidneys enhance symmetrically. There is no hydronephrosis. There are no renal parenchymal lesions.BOWEL: The stomach is distended. There is a small hiatal hernia. The visualized loops of large and small bowel are otherwise unremarkable.LYMPH NODES: There is no lymphadenopathy.VASCULAR STRUCTURES: There is no aortic aneurysm. Again noted are splenic varices which replace the splenic vein. The portal veins are patent.ABDOMINAL WALL: The abdominal wall soft tissues are unremarkable.FREE AIR OR FREE FLUID: There is no intra-abdominal free fluid.OSSEOUS STRUCTURES: There is no abnormal skeletal signal.IMPRESSION: 1. Large heterogeneous collection that replaces the pancreatic parenchyma, similar in size to the study from 2013. This collection does not enhance and contains heterogeneous material suggestive of the presence of blood. This may represent hemorrhage within a chronic pseudocyst. Superimposed infection is not excluded.2. Hepatic steatosis and splenic varices.3. The common duct has an irregular contour but is not dilated. The irregularity could be artifactual. There are no obvious filling defects.4. Other nonacute findings as described above.This document has been electronically signed by Ad Estevez MD on 07/16/2020 5:39 PM Name Value Range Interpretation Code Description Data Marlen rce(s) Supporting Document(s) ID Date Data Source [id number] 07/16/2020 05:02:[address] [facility] Name Value Range Interpretation Code Description Data Marlen rce(s) Supporting Document(s) Glucose [Mass/volume] in Capillary blood by Glucometer 115 mg/dL 70- 140 [facility] ID Date Data Source [id number] 07/16/2020 03:18:[address] [facility] Name Value Range Interpretation Code Description Data Marlen rce(s) Supporting Document(s) [facility] EJNSUw5eGqPJRjHb10/OTSksRJBbm9ZhLGlhMSj8GTafORDoD5SdLRU6mO9pHLM9DVcZHuYdIqQdJSN6 lbm [file] ICAgICAgICAgICAgICAgICAgICAgICAgICAgICAgICAgICAgICAgICAgICAgICAgICAgICAgICAgICAg KNUpSKQgWALsIFEuYDMjZP3LOCKeKFBzPGJqLTMnZWIgYLCxMZQlLGVoSKMjAYVoOXNgCAJdOPEyADOs ICAgICAgICAgICAgICAgICAgICAgICAgICAgICAgIC ZlYRByBRCuMCAyHNAnKZBdIPWaLQHtFEIjBJ5VGGVaKSXgNUJsBZPwLXIkKKLvRAJrKANjADZwLIZjJV AgICAgICAgICAgICAgICAgICAgICAgICAgICAgICAgICAgICAgICAgICAgICAgICAgICAgICAgICAgIC NoUKUoJKBmDG0DLPNpLXBnJZRyTAYgJVBwNFHnMKGp ICAgICAgICAgICAgICAgICAgICAgICAgICAgICAgICAgICAgICAgICAgICAgICAgICAgICAgICAgICAg NHNmEVLhISMqLKCqTJUrCJFwDD6GBRHcZRAmPDXuRIGfCAHnEAXzDWIsHIZtLOUqFVNrRABgAFZuEGGx ICAgICAgICAgICAgICAgICAgICAgICAgICAgICAgIC HoQXXfEQOnOKYlRWVwNZFuAYLmUGCpPKTmPWEiZB9NYIPgRLFyPRYuVINqUUWvNWDqIIUrGDYuICXrBD AgICAgICAgICAgICAgICAgICAgICAgICAgICAgICAgICAgICAgICAgICAgICAgICAgICAgICAgICAgIC IaLUWnTWLrBHYkWV3DXFYwJXCcOKPfSLJbHABaDBBd ICAgICAgICAgICAgICAgICAgICAgICAgICAgICAgICAgICAgICAgICAgICAgICAgICAgICAgICAgICAg NTKgDRKhLXSfJVItVTUmFKKeILOfVP5QRFKoCUKnMPVmEUEmEZSaTDDsNHNbXPCuZKUuCSMyJOStNCPd ICAgICAgICAgICAgICAgICAgICAgICAgICAgICAgIC MnOLBlLMDtMZSaRJArGAPqRYFjPPDfSTRwRMIeXCGuEJ6BFTOoQAVyCFQxOVTjARHnZMQkGSXaBJRbOK AgICAgICAgICAgICAgICAgICAgICAgICAgICAgICAgICAgICAgICAgICAgICAgICAgICAgICAgICAgIC FhTBSqVOWhLBJdWSJdZK4IPBFrWGRtBHAxONUjMUWp ICAgICAgICAgICAgICAgICAgICAgICAgICAgICAgICAgICAgICAgICAgICAgICAgICAgICAgICAgICAg PYPnIWXyEJWnRAUqGFZoTBQoOGVhRJMrLO9LLH40kTIfj6B8EXWmML5obrw/Kf1IZOaypxKjjHDyMA7Z HhVfGB4evv4OTgYkDP2jdx2FYEuZUhUlZ4Z9yJUnKS JlWIFXTgJeO52bOFjuVa01AZaaQNVeXmKiTGy0Ee3WOaSrW9ydQWLyKkW0RKRkBsK7MRVwQbJnRJtrUL 6Iy3SrdPSdMOg+Ei0KSO2ij7JzXSxlAkYoCY2sef4FCRbXPjUvF5BdfwV2TPI7APNmBa7VEIMtXXUjgK WtLoKgHXKBHsDbT5OrkT58XCSDAm6+DQplbmRvYmoN MsP0JNUco0NqNMt0JK8TDXJzNSj2yRCnJ56jc0RezXEuXpkfSYThxSR0GC1gV2MjxCv5HW4gKFjIJ6ex MMBcJCPwTC0tYPGyKCWoLyJ9IKNONY8IHELaHGMylIXhCXRbQCEHCG6EORmcCMB7BFSxyiFakQHiDVje KK4IKTUupeXoAXNzSJRHGWu+Ui0QYI2ai5SgLUulIX PmOC1yhi0YREvNDeOvD7N7bKElP4A8GHruOk3CZEGzWFRwAAAmOISGPSubJN2MBD4gkhD1YT1KbELqQC UsZGUrcUXbJZj7A44reSBfZBpvPM2IHSC+Shaye+Zi9AMJKkGEGrJEWcUtPkMKHJFlQwW0SjR0TMc7KwK1 VjWK55mRbjqmOfZKcnYF1DAJ9nZIRbEIOMCC9KwQHx lT3nnxLfUgWdZBSAVyWxV36yqETxUFYzKQE4MBObWq3UANRvP0IduxCubGeutlAfICAwNVMXNQ9XQCbe zsSgfBMehDhzHQ84dMjfDG5AFd3FXnMeCQ9zix5WzFFdAo7WOISvEB2ZMNExJKCtZWIvLCL2URYaGaNz FWeqXOTwJBAeCDC7MCApCUWfWA8NEzZzTSCnWFdeQQ KiNHHcSPMdsp9TTPGvYORlNXWrMsOzPMDqSPEoSRozMFWrRWWlFIC4GVWcFWEvXV1LPtGdUYKcMOX7VO tuGHIcPYInyj2KSEOvZKLxWlR0CmTfBYRbJRXdNUggCXXdORM3DJWjFQGeYPFmNO8NKkJtDJYkKOW6RT zuVYIaHGRphy1XSAUlRWYtPiR1SpKvPQSvYIMiCWfr UWBxSLU2ZeArMXSnODJlOX6FRhVxMPZjKRo5COKbSIOfNUSvhx8UVNFqRWWuNGbwAtNtIBSoCOMyHPti LYWwAIM9MHM7TMDeBSEaMH0OHrNsTEXfEUutXYTsYLAzXIQjbv4UBRDgBVFjRZL2ViNbKATvTYGyKTne DLWkIYMiMQPuEGPjOTVuHF0TZxFxUFOdYZCbJUZhVB FzYUZyvy6GXZOlJGAbFIZ6ZMYlLMHhLHUeGUj8msFuqOLbOIp2KZ3VX0FmjtEmXWcJUd9Rp905SNI6GM OoRe0TT6pxNe0nUMMxRUUBPa5SZIi2CgOpDtE4ODCyFNCgC3D6HvW5O9IrMFE4Y2VbGlRnFAA+IDw2MW PqHynoSIHcMZYkQyltZQdmYvB6AfYtBBCvGRRbKn1p XSANCj4+WCkfkAYkmPtvMNVZGxQjRjB0WXjnKOMZMy9O ID Date Data Source [id number] 07/16/2020 01:53:10 PM [facility] Name Value Range Interpretation Code Description Data Marlen e(s) Supporting Document(s) Consultation [facility] QFYGPm5kFvPUEeMk66/KVCedVVQgi4EgVLxvHXd3JGwsXEUfE8SkWNA5nN0xKJN5CKuFRkSyBhXvVSX9 lbm RxTlfZSeBeKYTtKxcBSqTlUVvsGsdrnSGeKC8NrNN4IDIoV92wHQAxALAcX4ZoPDI1SUN+Ze4XEDThoJ FrHC2HGuoV3I4vO4qQEo9+1t1USW88NaNneOn2ODwIBEYC3SSTEBe80stHWFAm5rMIctQy2m/+PH6MqY e68aogJ4BdhKfPo+6r4sgZ9gYW1N+/tHTtNzSrMa7f //UYG5cdgj/+CDTOPTn9HCFbq4e8TPvH1cjblD9w+e0Lb8/L5aaFeKBX+WXaeSUCzxFboeWJ8/Grw9fi /T9TXq6oqzxqwEbb6ojQa7a8U5ywvb+9npNvZwD2lljgTCkYbh3GN4GRa13I0kfzWOmn0P/mnUFY1/3d artist [file] M5ONJrF6RwEHCwRzAiLVYhAsOoFvEyXE7NKu1DBmH0GAL4kRYqRs8MChQeQOOIQfZeAU2KREj= ID Date Data Source [id number] 07/16/2020 01:44:[address] [facility] Name Value Range Interpretation Code Description Data Marlen rce(s) Supporting Document(s) History and Physical [facility] ZAUNKy8hSkGVUsNc08/WRQnfYBDxm4YoTLljMEd0QVukTKHnY2WaZHW6nQ1nPKY1MJbJEzXaEcTyPAC2 lbm [file] ID Date Data Source [id number] 07/16/2020 12:40:[address] [facility] Name Value Range Interpretation Code Description Data Marlen rce(s) Supporting Document(s) Leukocytes [#/volume] in Blood by Automated count 4.5 10*3/uL 4-10 [facility] Erythrocytes [#/volume] in Blood by Automated count 3.20 10*6/uL 4.6- 6.1 L [facility] Hemoglobin [Mass/volume] in Blood 8.9 g/dL 13.5-18 L [facility] Hematocrit [Volume Fraction] of Blood by Automated count 27.0 % 4 1-53 L [facility] Erythrocyte mean corpuscular volume [Entitic volume] by Auto mated count 84.5 fL 80-96 [facility] Erythrocyte mean corpuscular hemoglobin [Entitic mass] by Automated count 27.8 pg 27-33 [facility] Erythrocyte mean corpuscular hemoglobin concentration [Mass/volume] by Automated count 33.0 g/dL 32.0-36.0 [facility] Erythrocyte distribution width [Ratio] by Automated count 16.9 % 11.5-14.5 H [facility] Platelets [#/volume] in Blood by Automated count 178 10*3/uL 150-400 [facility] ID Date Data Source [id number] 07/16/2020 01:06:[address] [facility] Name Value Range Interpretation Code Description Data Marlen rce(s) Supporting Document(s) Albumin [Mass/volume] in Serum or Plasma by Bromocresol green (BCG) dye binding method 2.8 g/dL 3.5-5.2 L [facility] Bilirubin.total [Mass/volume] in Serum or Plasma 0.3 mg/dL <1.2 [facility] Calcium [Mass/volume] in Serum or Plasma 7.8 mg/dL 8.6-10.0 L [facility] Chloride [Moles/volume] in Serum or Plasma 107 mmol/L 98-107 [facility] Creatinine [Mass/volume] in Serum or Plasma 0.75 mg/dL 0.70-1.20 [facility] Glucose [Mass/volume] in Serum or Plasma 117 mg/dL 70-140 [facility] Alkaline phosphatase [Enzymatic activity/volume] in Serum or Plasma 59 U/L 40-129 [facility] Potassium [Moles/volume] in Serum or Plasma 3.8 mmol/L 3.4-5.1 [facility] Protein [Mass/volume] in Serum or Plasma 4.5 g/dL 6.4-8.3 L [facility] Sodium [Moles/volume] in Serum or Plasma 135 mmol/L 136-145 L [facility] Aspartate aminotransferase [Enzymatic activity/volume] in Serum or Plasma 31 U/L <40 [facility] Urea nitrogen [Mass/volume] in Serum or Plasma 8 mg/dL 6-20 [facility] Osmolality of Serum or Plasma by calculation 279 mosm/kg 275-300 [facility] Creatinine/Urea nitrogen [Mass Ratio] in Serum or Plasma 11 [facility] Bicarbonate [Moles/volume] in Serum 23 mmol/L 22-29 [facility] Alanine aminotransferase [Enzymatic activity/volume] in Seru m or Plasma 18 U/L <41 [facility] Anion gap 3 in Serum or Plasma 5 mmol/L 8-15 L [facility] Glomerular filtration rate/1.73 sq M pre dicted among non-blacks [Volume Rate/Area] in Serum or Plasma by Creatinine-based formula (MDRD) >6 0 [facility] Glomerular filtration rate/1.73 sq M pre dicted among blacks [Volume Rate/Area] in Serum or Plasma by Creatinine-based formula (MDRD) >60 [facility] ID Date Data Source [id number] 07/16/2020 03:19:[address] [facility] Name Value Range Interpretation Code Description Data Marlen rce(s) Supporting Document(s) Cancer Ag 19-9 [Units/volume] in Serum or Plasma 10 U/mL <35 [facility] This test uses Jayce CA 19-9 electrochem iluminescent immunoassay. Results obtained with different test methods or kits cannot be used interchangeably. CA 19-9 is useful in monitoring pancreatic, hepatobiliary, gastric, hepatocelllular, and colorectal cancer. CA 19-9 value regardless of level, should not be interpreted as absolute evidence of the presence or absence of malignant disease. ID Date Data Source [id number] 07/16/2020 03:19:28 PM [facility] Value Range Interpretation Code Description Data Marlen rce(s) Supporting Document(s) Carcinoembryonic Ag [Mass/volume] in Serum or Plasma 6.3 ng/ml <3.4 H [facility] Levels of CEA should not be interpreted as absoulute evidence of the presence or absence of disease. It should not be used as a screening test for Cancer. CEA values obtained using different methodologies cannot be used interchangeably. This method is manufactured by [employer] and is an electrochemiluminesence immunoassay. ID Date Data Source [id number] 07/16/2020 03:19:28 PM [facility] Value Range Interpretation Code Description Data Marlen rce(s) Supporting Document(s) Zrrmy-3-Desxkogzmus [Mass/volume] in Serum or Plasma <9 [facility] ID Date Data Source [id number] 07/16/2020 12:29:10 PM [facility] Value Range Interpretation Code Description Data Marlen rce(s) Supporting Document(s) Glucose [Mass/volume] in Capillary blood by Glucometer 106 mg/dL 70- 140 [facility] ID Date Data Source [id number] 07/16/2020 08:01:04 AM [facility] Value Range Interpretation Code Description Data Marlen rce(s) Supporting Document(s) Glucose [Mass/volume] in Capillary blood by Glucometer 108 mg/dL 70- 140 [facility] ID Date Data Source [id number] 07/16/2020 04:19:36 AM [facility] Value Range Interpretation Code Description Data Marlen rce(s) Supporting Document(s) Glucose [Mass/volume] in Capillary blood by Glucometer 82 mg/dL 70- 140 [facility] ID Date Data Source [id number] 07/16/2020 02:27:27 AM [facility] Value Range Interpretation Code Description Data Marlen rce(s) Supporting Document(s) Glucose [Mass/volume] in Capillary blood by Glucometer 91 mg/dL 70- 140 [facility] ID Date Data Source [id number] 07/16/2020 01:19:02 AM [facility] Value Range Interpretation Code Description Data Marlen rce(s) Supporting Document(s) Glucose [Mass/volume] in Capillary blood by Glucometer 95 mg/dL 70- 140 [facility] ID Date Data Source [id number] 07/16/2020 12:19:06 AM [facility] Value Range Interpretation Code Description Data Marlen rce(s) Supporting Document(s) Glucose [Mass/volume] in Capillary blood by Glucometer 98 mg/dL 70- 140 [facility] ID Date Data Source [id number] 07/16/2020 12:16:56 AM [facility] Value Range Interpretation Code Description Data Marlen rce(s) Supporting Document(s) History and Physical [facility] FFKSKo9aAaPKMeDu34/UPCizTVCtp8UsPPcwZEx7VNyyOBFlE3GzMGL0yS4mEEJ5TJqSWcArKuVfYZH8 lbm [file] vo5lKARGCoIHzliN4m+O8/evp business development/KFGsy9FqLTZZK481+bZEJ+XHay3SwH0v44ntRqf777Ec08g/+x1vaVB [file] ICAgICAgICAgICAgICAgICAgICAgICAgICAgICAgICAgICAgICAgICAgICAgICAgICAgICAgDQogICAg ICAgICAgICAgICAgICAgICAgICAgICAgICAgICAgIC AgICAgICAgICAgICAgICAgICAgICAgICAgICAgICAgICAgICAgICAgICAgICAgICAgICAgICAgICAgIC AgICAgDQogICAgICAgICAgICAgICAgICAgICAgICAgICAgICAgICAgICAgICAgICAgICAgICAgICAgIC AgICAgICAgICAgICAgICAgICAgICAgICAgICAgICAg ICAgICAgICAgICAgICAgDQogICAgICAgICAgICAgICAgICAgICAgICAgICAgICAgICAgICAgICAgICAg ICAgICAgICAgICAgICAgICAgICAgICAgICAgICAgICAgICAgICAgICAgICAgICAgICAgICAgICAgDQog ICAgICAgICAgICAgICAgICAgICAgICAgICAgICAgIC AgICAgICAgICAgICAgICAgICAgICAgICAgICAgICAgICAgICAgICAgICAgICAgICAgICAgICAgICAgIC AgICAgICAgDQogICAgICAgICAgICAgICAgICAgICAgICAgICAgICAgICAgICAgICAgICAgICAgICAgIC AgICAgICAgICAgICAgICAgICAgICAgICAgICAgICAg ICAgICAgICAgICAgICAgICAgDQogICAgICAgICAgICAgICAgICAgICAgICAgICAgICAgICAgICAgICAg ICAgICAgICAgICAgICAgICAgICAgICAgICAgICAgICAgICAgICAgICAgICAgICAgICAgICAgICAgICAg DQogICAgICAgICAgICAgICAgICAgICAgICAgICAgIC AgICAgICAgICAgICAgICAgICAgICAgICAgICAgICAgICAgICAgICAgICAgICAgICAgICAgICAgICAgIC AgICAgICAgICAgDQogICAgICAgICAgICAgICAgICAgICAgICAgICAgICAgICAgICAgICAgICAgICAgIC AgICAgICAgICAgICAgICAgICAgICAgICAgICAgICAg ICAgICAgICAgICAgICAgICAgICAgDQogICAgICAgICAgICAgICAgICAgICAgICAgICAgICAgICAgICAg ICAgICAgICAgICAgICAgICAgICAgICAgICAgICAgICAgICAgICAgICAgICAgICAgICAgICAgICAgICAg KWNwUFb4A7efTSShXVNpUK7yHZo9Cz9+DQoNCmVuZH U2uzZnbM9VLX5rl6TgODkxFNLxe2BuVBx4OS8CZKXsNHnbJM2BVIyffk5QYYGiNXYapAVEe9efFgQlFI Z2BCOsJpcbRI2GPJLzQ7liowLfVJLfPOMYKZfwKZUPCItxAUQFTZDyCTDcJwRrRiIyZXKwBD2IDMAdH2 52lgRxTQ0RXy4PGkQsNN5dgm1RJtPkQZTgEijWAfr4 BEijOG0VjKKuuUOjVIOzCWZRPeNmC2yih0FkSjLqDSXKKCnvMP6Et3FqfOLrXDh+Qd2VJY5fm5KoZRvh JWOlDE4akw7ANDnWNlZjV9WtlZdaAIarBQDluDPJkWzuIHLDiXKgZCMKUUQrlUErBX23YnFoNdMbOVP4 NLzkDL8qNQyqOY1CLBY5GJecYDPgAXBzF9vWBzGqMX EzRJOwiQvpML1RJaAgR3MayiKyoZJvIPDeCLKAAp9+DKfxlxFhMycHVrNcFCZxl2PpZYb6VZ5CPBKjUP tnIH1ZFNEiwZ2tMPxfJY5XUfHcDVCkTFAWEzSvK22vgXSvOZd5W3YmZeHvXQYxQmvmJDPdIMmiWqMtLG MgWyBdDQogID4+ID4+RPkzGI9LMOvbjoEbDDGnTz9O HIRpGEGzHE9cIEMvSATmS5O5gXdgENYKCvMsY4rfwqxcHJ6iYPUqE373pIomznFtHCRmBYVrDv9CXRIq VGO8XJPjiCEpSztwHPFOFTljGI6YfANnNQX4bC6iWZimTOJvLKKaA8qLWaIbqMiuMC04jVbrgySpzCUc DQo+Vn7GCV0hp0UaXUn0goTeMEnzMFVrAEpxXWHaOH LhAYNfMTK4AXU1SMQRJqZcCPVwJXHqQMqqHFFkAELcxy0EOJQdPHMtAqA0ZCGiVVBzUCGpQOqgNJDxVW I0XUR3ODPaGUYaUH4FPnZdJFOsQKBjBZofDKKyHIGhxs7HZUEiAPGcWVK5PYPuSJJtPMDtWCtaQJXsCH I0FrfsJEEvNLHeKJ7CCbFnRVShTJuqEXJqBYDfVDRo zu5QRBMuTXZuJOG0BXCbDFHzXHIqMAnuCRJeZEAmAgWyZVAfUYDaJH8JSgOmXFUgNGK2LHRcVMHoQJPv oz8CCOEmVYPvRPKrMnGlXDPuFMMuNWgdAJXnPLY8ZpClIIVrLPKoYG0TSvFnJAMuCSIsRTyuVSCgTEJe gi8ZZTPmCWYcTnS6ThCjRYXnKARrTFmhHCYoJBX2Xz YzNLZtQDAgAU7DKeZcTSDlYBj2YTMaJEBeBNEser6HPYPiTLWdLxQ4WqQgOFUcHPTfRUpnXDZvRXU0Dd LtPWIlNZOrOV5SYeHtHKPeBMw7DWZjKYUhMSCbyv4RKXSoTZOuPVV2TpFvXTYeOWRoPXbiUYObPPTePF U3TKPnEHCbZD5NWaFaCQGkPgS2NCYyRSFaGZRxij2G ECLeZYAfVQb6TKVxJKHdPXKdTCyoZZHkHSJuPRtuYVTqGESqAU5HMzEnBPZaIwThTzvwPUAtHJCzru7Z RUOmVEWsZjK2SiWlUQVhCZEoTEcaOGMaSSWjHMypWNHcRETuNM0WBqMiGFMnPbL1UPywGQNvOOJjef6W MZNnXXCaFpA1KvGxYQKeRISnSVbbMGOoDHP5HSIeUL YhTMEwFY5THzNyYHBjAgR6ZWByPTIyWFBukg3IREPxKGYaEHvdVCYoLLOfGXFdYGd5gzYhfWBcSPq1NH 4PF3JfxjMcHjPBOo6Om626RPRiFYFlZw1JH9khIt1jZSJyLQRODx0OWGz4QoCqApOoTAKsWBOhOBCiQB M3UNKtUwTzHUvwCrOrKHJ+YBfeKmRpGVT2XLZ3HLQ1 XGGdFCa8LNXtB6A7GMK2RsUsDH2sOJNCLl4+LBpntEXwjQtyYXATLvK0UNy2KWsoZAPXIz2R ID Date Data Source [id number] 07/16/2020 12:03:58 AM [facility] Value Range Interpretation Code Description Data Marlen rce(s) Supporting Document(s) Glucose [Mass/volume] in Capillary blood by Glucometer 130 mg/dL 70- 140 [facility] ID Date Data Source [id number] 07/15/2020 11:38:11 PM [facility] Value Range Interpretation Code Description Data Marlen rce(s) Supporting Document(s) Glucose [Mass/volume] in Capillary blood by Glucometer 58 mg/dL 70- 140 L [facility] ID Date Data Source [id number] 07/15/2020 09:27:33 PM [facility] Value Range Interpretation Code Description Data Marlen rce(s) Supporting Document(s) Leukocytes [#/volume] in Blood by Automated count 5.0 10*3/uL 4-10 [facility] Erythrocytes [#/volume] in Blood by Automated count 3.51 10*6/uL 4.6- 6.1 L [facility] Hemoglobin [Mass/volume] in Blood 9.9 g/dL 13.5-18 L [facility] Hematocrit [Volume Fraction] of Blood by Automated count 29.7 % 4 1-53 L [facility] Erythrocyte mean corpuscular volume [Entitic volume] by Auto mated count 84.6 fL 80-96 [facility] Erythrocyte mean corpuscular hemoglobin [Entitic mass] by Automated count 28.2 pg 27-33 [facility] Erythrocyte mean corpuscular hemoglobin concentration [Mass/volume] by Automated count 33.4 g/dL 32.0-36.0 [facility] Erythrocyte distribution width [Ratio] by Automated count 16.8 % 11.5-14.5 H [facility] Platelets [#/volume] in Blood by Automated count 171 10*3/uL 150-400 [facility] ID Date Data Source [id number] 07/15/2020 09:32:[address] [facility] Name Value Range Interpretation Code Description Data Marlen rce(s) Supporting Document(s) Albumin [Mass/volume] in Serum or Plasma by Bromocresol green (BCG) dye binding method 3.4 g/dL 3.5-5.2 L [facility] Bilirubin.total [Mass/volume] in Serum or Plasma 1.2 mg/dL <1.2 H [facility] Calcium [Mass/volume] in Serum or Plasma 8.1 mg/dL 8.6-10.0 L [facility] Chloride [Moles/volume] in Serum or Plasma 102 mmol/L 98-107 [facility] Creatinine [Mass/volume] in Serum or Plasma 0.62 mg/dL 0.70-1.20 L [facility] Glucose [Mass/volume] in Serum or Plasma 78 mg/dL 70-140 [facility] Alkaline phosphatase [Enzymatic activity/volume] in Serum or Plasma 67 U/L 40-129 [facility] Potassium [Moles/volume] in Serum or Plasma 3.6 mmol/L 3.4-5.1 [facility] Protein [Mass/volume] in Serum or Plasma 5.2 g/dL 6.4-8.3 L [facility] Sodium [Moles/volume] in Serum or Plasma 132 mmol/L 136-145 L [facility] Aspartate aminotransferase [Enzymatic activity/volume] in Serum or Plasma 25 U/L <40 [facility] Urea nitrogen [Mass/volume] in Serum or Plasma 10 mg/dL 6-20 [facility] Osmolality of Serum or Plasma by calculation 272 mosm/kg 275-300 L [facility] Creatinine/Urea nitrogen [Mass Ratio] in Serum or Plasma 16 [facility] Bicarbonate [Moles/volume] in Serum 23 mmol/L 22-29 [facility] Alanine aminotransferase [Enzymatic activity/volume] in Seru m or Plasma 16 U/L <41 [facility] Anion gap 3 in Serum or Plasma 7 mmol/L 8-15 L [facility] Glomerular filtration rate/1.73 sq M pre dicted among non-blacks [Volume Rate/Area] in Serum or Plasma by Creatinine-based formula (MDRD) >6 0 [facility] Glomerular filtration rate/1.73 sq M pre dicted among blacks [Volume Rate/Area] in Serum or Plasma by Creatinine-based formula (MDRD) >60 [facility] ID Date Data Source [id number] 07/15/2020 09:29:[address] [facility] Name Value Range Interpretation Code Description Data Marlen rce(s) Supporting Document(s) Hemoglobin A1c/Hemoglobin.total in Blood by HPLC 9.2 % 4.0-6.0 H [facility] Glucose mean value [Mass/volume] in Blood Estimated fr om glycated hemoglobin 217 mg/dL <126 H [facility] ID Date Data Source [id number] 07/15/2020 11:38:11 PM [facility] Value Range Interpretation Code Description Data Marlen rce(s) Supporting Document(s) Glucose [Mass/volume] in Capillary blood by Glucometer 71 mg/dL 70- 140 [facility] ID Date Data Source [id number] 07/15/2020 04:14:51 PM [facility] Value Range Interpretation Code Description Data Marlen rce(s) Supporting Document(s) Progress Note [facility] [id number] [facility] [file] [id number] ID Date Data Source [id number] 07/15/2020 02:52:00 PM [facility] Name: FALGUNI ALSTON JR : 1975 Age: 45 MR#: [id number] Admit Date: 07/13/20 Provider: Morro Luque MD Room #: 283 Consulting Provider: Adan Garza MD Dictation Date: 0 Discharge Summary Discharge Summary Admit Info/Diagnoses/Course Date of service:: 07/15/20 Admission Information: Patient, FALGUNI ALSTON JR, a 45 year old M, admitted on 07/13/20 20:42 by Morro Luque MD for ALCOHOLIC GASTRITIS,SVT,DEHYDRATION Family MD Olivia Woods, [employer] Discharge Date: 07/15/20 Most Recent Lab Results: 07/15/20 14:00 07/15/20 06:25 Laboratory Results Last 24 hours 07/14/20 05:20: Blood Type A Negative 07/14/20 16:33: POC Glucose 54 L 07/14/20 17:47: POC Glucose 114 07/14/20 22:03: POC Glucose 383 H 07/15/20 02:33: POC Glucose 147 H 07/15/20 06:25: WBC 5.3, RBC 2.59 L, Hgb 7.0 L, Hct 22.0 L, MCV 84.9, MCH 27.0, MCHC 31.8 L, RDW 16 H, Plt Count 149, MPV 10.7, Immature Gran % (Auto) 0.8, Neut % (Auto) 56.0, Lymph % (Auto) 30.4, Beauregard % (Auto) 10.3, Eos % (Auto) 2.1, Baso % (Auto) 0.4, Lymph # (Auto) 1.6, Abs Immat Gran (auto) 0.0, Add Manual Diff No, Absolute Neutrophils 3.0, Monocytes # 0.6, Absolute Eosinophils 0.1, Absolute Basophils 0.0 07/15/20 06:25: Sodium 135, Potassium 3.7, Chloride 103, Carbon Dioxide 28, Anion Gap 8, BUN 19, Creatinine 0.8, GFR Calculation Greater than 60, Glucose 180 H, Calcium 7.2 L 07/15/20 06:25: Magnesium 2.4 07/15/20 06:25: Iron 34 L, TIBC 255, Iron Saturation 13 L 07/15/20 07:18: POC Glucose 256 H 07/15/20 08:00: WBC 5.6, RBC 2.64 L, Hgb 7.1 L, Hct 22.2 L, MCV 84.1, MCH 26.9 L, MCHC 32.0 L, RDW 16 H, Plt Count 151, MPV 10.5, Immature Gran % (Auto) 0.5, Neut % (Auto) 59.4, Lymph % (Auto) 27.8, Beauregard % (Auto) 10.5, Eos % (Auto) 1.4, Baso % (Auto) 0.4, Lymph # (Auto) 1.6, Abs Immat Gran (auto) 0.0, Add Manual Diff No, Absolute Neutrophils 3.3, Monocytes # 0.6, Absolute Eosinophils 0.1, Absolute Basophils 0.0 07/15/20 08:00: Blood Type A Negative, Antibody Screen Negative, Crossmatch See Detail 07/15/20 14:00: WBC 5.3, RBC 2.39 L, Hgb 6.4 L*, Hct 20.7 L, MCV 86.6, MCH 26.7 L, MCHC 30.9 L, RDW 16 H, Plt Count 147, MPV 10.1, Immature Gran % (Auto) 0.4, Neut % (Auto) 56.5, Lymph % (Auto) 29.9, Beauregard % (Auto) 10.9, Eos % (Auto) 1.9, Baso % (Auto) 0.4, Lymph # (Auto) 1.6, Abs Immat Gran (auto) 0.0, Add Manual Diff No, Absolute Neutrophils 3.0, Monocytes # 0.6, Absolute Eosinophils 0.1, Absolute Basophils 0.0 Microbiology 07/15/20 09:20 Stool Stool Occult Blood (RODRIGO) - Final 07/13/20 18:10 Venous blood Blood Culture - Preliminary NO GROWTH AFTER 24 HOURS 07/13/20 18:10 Venous blood Blood Culture - Preliminary NO GROWTH AFTER 24 HOURS 07/13/20 22:10 Nasopharyngeal SARS-CoV-2 (PCR) Interpretation - Final No Organisms Detected INR Results 07/13/20 18:10 INR 1.0 (0.9-1.1) Hospital Course: 45 y/o M initially brought in for multiple syncopal episode, vomiting, decreased oral intake, continued alcohol abuse, left sided ribcage area pain, in ER pt was found in SVT/AFib with RVR was given iv diltiazem after that he converted to sinus rhythm; pt was admitted for alcoholic gastritis, contraction alkalosis, dehydration, RAYMOND and electrolyte imbalance. Over the course of treatment contraction alkalosis, dehydration, RAYMOND, electrolyte imbalance, nausea,vomiting resolved. Left lower ribcage area pain resolved with Lidocaine patch and Tylenol; was most probably musculoskeletal in origin. Syncope was most probably secondary to debility due to dehydration. CT head- negative, no focal neurological deficit, pt remained in sinus rhythm. CT abdomen showed - 4.2 cm partially calcified lesion, likely in the body of the pancreas. plan was to have MRI with and without contrast for further evaluation. Pt Hb continued to drop slowly from 13.3 --> 9.3--> 7.0; we consulted general surgery team and initial plan to have diagnostic EGD on Thursday. Pt was started on Octreotide and pantoprazole gtt. Pt had black tarry stool during hospital stay first time at about 1 pm on 07-15-20 after that repeat Hb was found 6.4. We consulted general surgery again(they can do only diagnostic endoscopy at [facility]) recommendations were to transfer the patient to a center with in house GI service. Pt was given 2 unit PRBC. We consulted JANIE Yi and pt was accepted for further management. Pt was seen and examined at bedside before. Pt was resting comfortably in bed. Pt stated that he is feeling fine and did not have complaint. Pt was clinically and vitally stable for transfer. I spent 35 minutes in coordinating discharge. Exam Condition Vital Signs - Most Recent: Last Vital Signs Temp 97.1 F L 07/15/20 14:48 Pulse 75 07/15/20 14:48 Resp 20 07/15/20 14:48 BP 100/66 07/15/20 14:48 Pulse Ox 99 07/15/20 14:48 Ht Wt BMI Current Height 5 ft 9 in Current Weight 160 lb 7 oz Body Mass Index (BMI) 22.6 Body Mass Index (BMI) Normal Classification General: positive Alert, positive Oriented x3, positive Cooperative and positive No acute distress HEENT: Mucous membr. moist/pink Neck: Supple Lungs: Clear to auscultation Cardiovascular: Regular rate, Normal S1 and Normal S2 Abdomen: Normal bowel sounds and Soft Extremities: No edema Skin: Skin warm and dry, Mucus membranes moist Neurological: Normal speech and Strength at 5/5 X4 ext Psych/Mental Status: Mood NL Medications Home Medications One Daily For Men 1 ea PO DAILY #30 tab 03/31/13 [Rx] blood-glucose meter #1 ea 03/22/20 [Rx] aspirin 81 mg tablet,delayed release 81 mg PO DAILY #30 tab 05/28/20 [Rx] atorvastatin 80 mg tablet 80 mg PO QDAY #30 tab 05/28/20 [Rx] blood sugar diagnostic #150 box 05/28/20 [Rx] folic acid 1 mg tablet 1 mg PO DAILY #30 tab 05/28/20 [Rx] gabapentin 400 mg capsule 600 mg PO TID #120 cap 05/28/20 [Rx] insulin glargine 100 unit/mL (3 mL) subcutaneous pen 32 unit SQ BID #15 ml MDD 64 units 05/28/20 [Rx] insulin lispro 100 unit/mL subcutaneous solution 1 sliding scale dose SQ USEASDIRECTD #10 ml MDD 45 units 05/28/20 [Rx] insulin syr/ndl U100 half hiram 0.3 mL 31 gauge x 5/16" #100 each 05/28/20 [Rx] metoprolol tartrate 100 mg tablet 100 mg PO BID #60 tab 05/28/20 [Rx] pantoprazole 40 mg tablet,delayed release 40 mg PO DAILY #30 tab 05/28/20 [Rx] thiamine HCl (vitamin B1) 100 mg tablet 100 mg PO DAILY #90 tab 05/28/20 [Rx] pen needle, diabetic 07/14/20 [History] ramipril 5 mg PO DAILY 07/14/20 [History] Quality Measures Tobacco Use Smoking Status: Current every day smoker Smoking Cessation Education: Smoking cessation information given and Patient is not ready to quit smoking- encouraged to follow-up Alcohol screening Alcohol Consumption (from nursing Hx): Daily BMI Screening: Current Height: 5 ft 9 in Current Weight: 160 lb 7 oz Body Mass Index (BMI): 22.6 Influenza Immunization Hx/Date of Influenza Vaccination (from nursing Hx): No Safety Two or more falls in last year? (Future fall risk): No Fall with injury in last year (Future fall risk): No Future fall risk?: Patient screens as a future fall risk Diabetes Care Measures HgAic/Microalbumin: HgA1c Hemoglobin A1c 10.3 % (4.0-6.0) H 07/13/20 18:10 Glucose/POC Glucose: POC Glucose last 48 hrs 07/13/20 07/14/20 07/14/20 23:01 06:00 07:12 POC Glucose 284 H 64 L 113 07/14/20 07/14/20 07/14/20 08:39 08:41 11:49 POC Glucose 417 H* 400 H 198 H 07/14/20 07/14/20 07/14/20 16:33 17:47 22:03 POC Glucose 54 L 114 383 H 07/15/20 07/15/20 02:33 07:18 POC Glucose 147 H 256 H Glucose last 48 hrs 07/13/20 07/14/20 07/14/20 18:10 00:35 05:20 Glucose 300 H 195 H 72 L 07/15/20 06:25 Glucose 180 H Discharge Plan Admission/Discharge Dx Primary (Admit) Diagnosis: Alcoholic gastritis; Dehydration; contraction alkalosis; SVT Primary DC Diagnosis: suspected upper GI bleeding Condition Condition: Stable Discharge Detail Disposition: Transfer - [facility] Rec New Prescriptions: No Action aspirin 81 mg tablet,delayed release (DR/EC) 81 mg PO DAILY Qty: 30 RF: 3 atorvastatin 80 mg tablet 80 mg PO QDAY Qty: 30 RF: 3 (DME) GE100 Blood Glucose Test Strip Strip 1 ea miscellaneous QID Qty: 150 RF: 5 folic acid 1 mg tablet 1 mg PO DAILY Qty: 30 RF: 5 gabapentin 400 mg capsule 600 mg PO TID Qty: 120 RF: 2 (DME) BD Insulin Syringe Half Unit 0.3 mL 31 gauge x 5/16" syringe See Rx Instructions .ROUTE .MEDSUPPLY Qty: 100 RF: 4 insulin lispro [Admelog U-100 Insulin lispro] 100 unit/mL solution 1 sliding scale dose SQ USEASDIRECTD MDD 45 units Qty: 10 RF: 2 metoprolol tartrate 100 mg tablet 100 mg PO BID Qty: 60 RF: 2 pantoprazole 40 mg tablet,delayed release (DR/EC) 40 mg PO DAILY Qty: 30 RF: 3 thiamine HCl (vitamin B1) 100 mg tablet 100 mg PO DAILY Qty: 90 RF: 0 Basaglar KwikPen U-100 Insulin 100 unit/mL (3 mL) insulin pen 32 unit SQ BID MDD 64 units Qty: 15 RF: 3 (DME) pen needle, diabetic 29 gauge x 1/2" needle 1 ea miscellaneous TID RF: 0 ramipril 5 mg capsule 5 mg PO DAILY RF: 0 One Daily For Men 0.4-600 mg-mcg tablet 1 ea PO DAILY Qty: 30 RF: 5 (DME) blood-glucose meter Misc 1 ea miscellaneous QID Qty: 1 RF: 0 Medications Medication reconciliation performed by provider at discharge: Yes *Discharge Patient* Discharge Orders: Discharge Order (Routine); Ordered 07/15/20 Ordered By: Morro Luque Dictated by: <Electronically signed by Morro Luque MD> Morro Luque MD 07/15/20 1734 Morro Luque MD SIGNATURE DA Report Cosigners: D: STACIA 07/15/20 1452 T: STACIA 07/15/20 1452 CC: Name Value Range Interpretation Code Description Data Marlen rce(s) Supporting Document(s) ID Date Data Source [id number] 07/15/2020 02:13:00 PM EST [facility] @ PT ALREADY DRAWN BEFORE AND RAN BEFORE CANCELLATION@NOTICED.... [facility] Name Value Range Interpretation Code Description Data Marlen rce(s) Supporting Document(s) Leukocytes [#/volume] in Blood by Automated count 5.3 10*3/uL 4.45-10 .71 N [facility] Erythrocytes [#/volume] in Blood by Automated count 2.39 10*6/uL 4.3-6.1 Below low normal [facility] Hemoglobin [Moles/volume] in Blood 6.4 g/dL 13-18 No range defined, or normal ranges don't apply [facility] @Review test & document.Called to Mark Choudhury @ 3533 by Cristina Jacobs. Resultsread back.Repeated by: Cristina Jacobs 07/15/20 1412.Result Confirmation: 6.4 g/dL Hematocrit [Volume Fraction] of Blood by Automated count 20.7 % 42-52 Below low normal [facility] Erythrocyte mean corpuscular volume [Ent itic volume] in Cord blood by Automated count 86.6 fL 80-96 N [facility] ital Erythrocyte mean corpuscular hemoglobin [Entitic mass] by Automated count 26.7 pg 27-31 Below low normal [facility] pital Erythrocyte mean corpuscular hemoglobin concentration [Mass/volume] in Cord blood 30.9 g/dL 33-[address] [facility] Erythrocyte distribution width [Entitic volume] by Automated cou nt 16 % 11-15 Above high normal [facility] Platelets [#/volume] in Blood by Automated count 147 10*3/uL 130-472 N [facility] Platelet mean volume [Entitic volume] in Blood 10.1 fL 9.1-13.1 N [facility] Neutrophils/100 leukocytes in Blood by Automated count 56.5 % 41- 77 N [facility] Neutrophils [#/volume] in Blood by Automated count 3.0 U 1.7-7.6 N [facility] Lymphocytes/100 leukocytes in Blood by Automated count 29.9 % 14- 46 N [facility] Lymphocytes [#/volume] in Blood by Automated count 1.6 U 0.6-4.6 N [facility] Monocytes/100 leukocytes in Blood by Automated count 10.9 % 4-12 N [facility] Monocytes [#/volume] in Blood by Automated count 0.6 U 0.2-1.2 N [facility] Eosinophils/100 leukocytes in Blood by Automated count 1.9 % 0-7 N [facility] Eosinophils [#/volume] in Blood by Automated count 0.1 U 0.0-0.5 N [facility] Basophils/100 leukocytes in Blood by Automated count 0.4 % 0.4-1 .3 N [facility] Basophils [#/volume] in Blood by Automated count 0.0 U 0.0-0.2 N [facility] NUCLEATED RED BLOOD CELL 0 % [facility] NUCLEATED RED BLOOD CELL# 0 U [facility] Immature granulocytes [Presence] in Blood by Automated count 0-2 N [facility] Immature granulocytes [#/volume] in Blood by Automated count 0.0 U 0-0.1 N [facility] Manual Differential panel - Blood NO [facility] ID Date Data Source [id number] 07/15/2020 10:52:00 AM [facility] "NORMAL" FOR IFOB FECAL OCCULT BLOOD IS "NEGATIVE"THE [employer] iFOB IS AN IMMUNOCHEMICAL FECAL OCCULT BLOODTEST Name Value Range Interpretation Code Description Data Marlen rce(s) Supporting Document(s) IFOB ICT fecal occult bld Negative [facility] ID Date Data Source [id number] 07/15/2020 08:35:00 AM [facility] Name: FALGUNI ALSTON JR : 1975 Age: 45 MR#: [id number] Admit Date: 07/13/20 Provider: Adan Garza MD Room #: 291 Consulting Provider: Adan Garza MD Dictation Date: 07/15/20 Consultation HPI Date of Service Date of service:: 07/15/20 History of Present Illness Chief Complaint: Upper GI bleed Attestation/Length Of Stay: 07/13/20 20:42 Admit to Inpatient, Acute [STATUS] Routine Location: ICU Primary diagnosis: Alcoholic Gastritis, SVT, Dehydration Isolation: Droplet Status: Inpatient Admission Anticipated Length of stay:: 3-4 Midnights HPI Free Text/Narrative:: Falguni is a 45-year-old male admitted to the medical service with nausea vomiting and presumed alcoholic gastritis in addition to multiple other medical comorbidities. Hemoglobin on admission was 13 subsequent drop to 9 and then 7. Surgical consultation was requested to discuss upper endoscopy to evaluate probable upper GI bleeding. Allergies/Home Meds Allergies Aller gy/AdvReac Type Severity Reaction Status Date / Time No Known Drug Allergies Allergy Verified 07/13/20 18:05 Home Medications Medication Instructions Recorded Confirmed Last Taken Type One Daily For Men 1 ea PO DAILY #30 tab 03/31/13 07/14/2007/13/20 09:00 Rx 1 tab blood-glucose meter #1 ea 03/22/20 07/13/20 07/12/20 Rx aspirin 81 mg tablet,delayed 81 mg PO DAILY #30 tab 05/28/20 07/14/20 07/13/20 09:00 Rx release 81 mg atorvastatin 80 mg tablet 80 mg PO QDAY #30 tab 05/28/20 07/14/20 07/13/20 09:00 Rx 80 mg blood sugar diagnostic #150 box 05/28/20 07/13/20 07/12/20 Rx folic acid 1 mg tablet 1 mg PO DAILY #30 tab 05/28/20 07/14/20 07/13/20 09:00 Rx 1 mg gabapentin 400 mg capsule 600 mg PO TID #120 cap 05/28/20 07/14/20 07/12/20 09:00 Rx 600 mg insulin glargine 100 unit/mL (3 32 unit SQ BID #15 ml MDD 64 units 05/28/20 07/14/20 07/12/20 09:00 Rx mL) subcutaneous pen 32 units insulin lispro 100 unit/mL 1 sliding scale dose SQ 05/28/20 07/14/20 07/12/20 09:00 Rx subcutaneous solution USEASDIRECTD #10 ml MDD 45 units 4 units insulin syr/ndl U100 half hiram 0.3 #100 each 05/28/20 07/13/20 07/12/20 Rx mL 31 gauge x 5/16" metoprolol tartrate 100 mg tablet 100 mg PO BID #60 tab 05/28/20 07/14/20 07/13/20 09:00 Rx 100 mg pantoprazole 40 mg tablet,delayed 40 mg PO DAILY #30 tab 05/28/20 07/14/20 07/13/20 09:00 Rx release 40 mg thiamine HCl (vitamin B1) 100 mg 100 mg PO DAILY #90 tab 05/28/20 07/14/20 07/13/20 09:00 Rx tablet 100 mg pen needle, diabetic 07/14/20 07/13/20 07/12/20 History ramipril 5 mg PO DAILY 07/14/20 07/14/20 07/13/20 09:00 History 5 mg Past History Family History Family Hx: Alive: MOM and DAD and Cardiovascular disease: DAD Subjective-ROS (Surgical) Review of Systems Endocrine: Reports No Symptoms/Complaints Gastrointestinal: Reports nausea, vomiting and abdominal pain; Denies diarrhea Hematological/Lymphatic: Reports easy bleeding and easy bruising Height(from nursing assessment): 5 ft 9 in Weight (from nursing assessment): 160 lb 7 oz Body Mass Index (BMI) Classification: Normal Objective VS and I O Vitals and I O: Vital Signs last 12 hours Temp Pulse Resp BP Pulse Ox 07/15/20 07:24 98.4 F 90 18 102/64 97 07/15/20 07:19 90 18 97 07/15/20 06:15 98 07/15/20 04:00 98.1 F 90 18 95 07/15/20 00:19 96 07/15/20 00:00 98 F 91 18 110/75 98 07/14/20 23:20 65 18 105/65 95 07/14/20 22:27 80 105/65 Intake Output Last 24 Hours 07/13/20 07/14/20 07/15/20 23:59 23:59 23:59 Intake Total 2049 / 2139 2530 / 2530 995 / 995 Output Total 2500 / 2500 Balance 2049 / 1939 995 / 995 Current Weight 153 lb 3 oz 153 lb 3 oz 160 lb 7 oz Results Results: 07/15/20 08:00 07/15/20 06:25 Laboratory Results Last 24 hours 07/14/20 08:39: POC Glucose 417 H* 07/14/20 08:41: POC Glucose 400 H 07/14/20 10:30: VBG pH (Temp Correct) 7.49 H, VBG pCO2 (Temp Corrct 41.2, VBG pO2 (Temp Corrct) 36.3, VBG HCO3 31.1 H, VBG Total CO2 32.4 H, VBG O2 Saturation 68.6 L, VBG Base Excess 7.1 H, FiO2 21.0 07/14/20 11:10: Urine Color Yellow, Urine Appearance Clear, Urine pH 6.5, Ur Specific Neola 1.017, Urine Protein Negative, Urine Ketones Negative, Urine Blood Negative, Urine Nitrate Negative, Urine Bilirubin Negative, Urine Urobilinogen 1 eu/dl, Ur Leukocyte Esterase Negative, Add Ur Microanalysis No, Urine Glucose > 1000 mg/dl A 07/14/20 11:49: POC Glucose 198 H 07/14/20 16:33: POC Glucose 54 L 07/14/20 17:47: POC Glucose 114 07/14/20 22:03: POC Glucose 383 H 07/15/20 02:33: POC Glucose 147 H 07/15/20 06:25: WBC 5.3, RBC 2.59 L, Hgb 7.0 L, Hct 22.0 L, MCV 84.9, MCH 27.0, MCHC 31.8 L, RDW 16 H, Plt Count 149, MPV 10.7, Immature Gran % (Auto) 0.8, Neut % (Auto) 56.0, Lymph % (Auto) 30.4, Beauregard % (Auto) 10.3, Eos % (Auto) 2.1, Baso % (Auto) 0.4, Lymph # (Auto) 1.6, Abs Immat Gran (auto) 0.0, Add Manual Diff No, Absolute Neutrophils 3.0, Monocytes # 0.6, Absolute Eosinophils 0.1, Absolute Basophils 0.0 07/15/20 06:25: Sodium 135, Potassium 3.7, Chloride 103, Carbon Dioxide 28, Anion Gap 8, BUN 19, Creatinine 0.8, GFR Calculation Greater than 60, Glucose 180 H, Calcium 7.2 L 07/15/20 06:25: Magnesium 2.4 07/15/20 07:18: POC Glucose 256 H 07/15/20 08:00: WBC 5.6, RBC 2.64 L, Hgb 7.1 L, Hct 22.2 L, MCV 84.1, MCH 26.9 L, MCHC 32.0 L, RDW 16 H, Plt Count 151, MPV 10.5, Immature Gran % (Auto) 0.5, Neut % (A uto) 59.4, Lymph % (Auto) 27.8, Beauregard % (Auto) 10.5, Eos % (Auto) 1.4, Baso % (Auto) 0.4, Lymph # (Auto) 1.6, Abs Immat Gran (auto) 0.0, Add Manual Diff No, Absolute Neutrophils 3.3, Monocytes # 0.6, Absolute Eosinophils 0.1, Absolute Basophils 0.0 Microbiology 07/13/20 18:10 Venous blood Blood Culture - Preliminary NO GROWTH AFTER 24 HOURS 07/13/20 18:10 Venous blood Blood Culture - Preliminary NO GROWTH AFTER 24 HOURS 07/13/20 22:10 Nasopharyngeal SARS-CoV-2 (PCR) Interpretation - Final No Organisms Detected CBC/BMP: 07/15/20 08:00 07/15/20 06:25 General General: Alert, Oriented x3, Cooperative and No acute distress Respiratory Lungs: normal lung sounds bilaterally Cardiovascular Cardiovascular: regular rate and normal rhythm GI/Abdominal Abdomen: Abd soft, bowel sounds present all quadrents and soft; negative for mass Assessment/Plan Impression/Plan Narrative .: 45-year-old male with rapid drop in hemoglobin from 13-7. Symptoms and history suggest the source is an upper GI bleed. Patient is a known for alcohol abuse. EGD is certainly appropriate to evaluate this patient for upper GI source of bleeding. He in fact has had upper endoscopy it sounds like by his history in the past. The procedure benefits and risks including reaction anesthesia perforation bleeding were all discussed in detail. The possibility of biopsy or polypectomy were discussed. Finally the alternative of no procedure was reviewed. His questions were answered. He like to proceed. We will schedule him for EGD tomorrow. Report Signers: <Electronically signed by Adan Garza MD> Adan Garza MD 07/15/2040 B Adan schultz MD SIGNATURE DA Report Cosigners: D: MARKOS 07/15/20834 T: MARKOS 07/15/20834 CC: Name Value Range Interpretation Code Description Data Marlen rce(s) Supporting Document(s) ID Date Data Source [id number] 07/15/2020 08:05:00 AM EST [facility] Name Value Range Interpretation Code Description Data Marlen rce(s) Supporting Document(s) Leukocytes [#/volume] in Blood by Automated count 5.6 10*3/uL 4.45-10 .71 N [facility] Erythrocytes [#/volume] in Blood by Automated count 2.64 10*6/uL 4.3-6.1 Below low normal [facility] Hemoglobin [Moles/volume] in Blood 7.1 g/dL 13-18 Below low no rmal [facility] Hematocrit [Volume Fraction] of Blood by Automated count 22.2 % 42-52 Below low normal [facility] Erythrocyte mean corpuscular volume [Ent itic volume] in Cord blood by Automated count 84.1 fL 80-96 N [facility] ital Erythrocyte mean corpuscular hemoglobin [Entitic mass] by Automated count 26.9 pg 27-31 Below low normal [facility] pital Erythrocyte mean corpuscular hemoglobin concentration [Mass/volume] in Cord blood 32.0 g/dL 33-[address] [facility] Erythrocyte distribution width [Entitic volume] by Automated cou nt 16 % 11-15 Above high normal [facility] Platelets [#/volume] in Blood by Automated count 151 10*3/uL 130-472 N [facility] Platelet mean volume [Entitic volume] in Blood 10.5 fL 9.1-13.1 N [facility] Neutrophils/100 leukocytes in Blood by Automated count 59.4 % 41- 77 N [facility] Neutrophils [#/volume] in Blood by Automated count 3.3 U 1.7-7.6 N [facility] Lymphocytes/100 leukocytes in Blood by Automated count 27.8 % 14- 46 N [facility] Lymphocytes [#/volume] in Blood by Automated count 1.6 U 0.6-4.6 N [facility] Monocytes/100 leukocytes in Blood by Automated count 10.5 % 4-12 N [facility] Monocytes [#/volume] in Blood by Automated count 0.6 U 0.2-1.2 N [facility] Eosinophils/100 leukocytes in Blood by Automated count 1.4 % 0-7 N [facility] Eosinophils [#/volume] in Blood by Automated count 0.1 U 0.0-0.5 N [facility] Basophils/100 leukocytes in Blood by Automated count 0.4 % 0.4-1 .3 N [facility] Basophils [#/volume] in Blood by Automated count 0.0 U 0.0-0.2 N [facility] NUCLEATED RED BLOOD CELL 0 % [facility] NUCLEATED RED BLOOD CELL# 0 U [facility] Immature granulocytes [Presence] in Blood by Automated count 0-2 N [facility] Immature granulocytes [#/volume] in Blood by Automated count 0.0 U 0-0.1 N [facility] Manual Differential panel - Blood NO [facility] ID Date Data Source [id number] 07/15/2020 05:26:00 PM EST [facility] [id number] AN PC TRANSFUSED 07/15/20 1644 [id number] AN PC TRANSFUSED 07/15/20 1433 @07/15/20 0806: Pre Op? added. RFLXG = T RX.@07/15/20 0806: Pretransfusion? added. RFLXG = TRX.@07/15/20 0806: Inpatient? added. RFLXG = TRX.Called [facility] ([facility]) @ 1415...1 PC ready. 07/15/2020 TKHOrder product and Administer when available: YHGB: 6.4Called [facility])2nd unit PC ready @1525 07/15/2020 TKHTransfused within 90 days?: NPre Op? (IF Yes, give date): N Name Value Range Interpretation Code Description Data Marlen rce(s) Supporting Document(s) ID Date Data Source [id number] 07/15/2020 05:26:00 PM [facility] [id number] AN PC TRANSFUSED 07/15/20 1644 [id number] AN PC TRANSFUSED 07/15/20 1433 @07/15/20 0806: Pre Op? added. RFLXG = T RX.@07/15/20 08: Pretransfusion? added. RFLXG = TRX.@07/15/20 0806: Inpatient? added. RFLXG = TRX.Called [facility] ([facility]) @ 1415...1 PC ready. 07/15/2020 TKHOrder product and Administer when available: YHGB: 6.4Called [facility])2nd unit PC ready @1525 07/15/2020 TKHTransfused within 90 days?: NPre Op? (IF Yes, give date): N Name Value Range Interpretation Code Description Data Marlen rce(s) Supporting Document(s) Blood bank studies (set) No A [facility] @To complete the specimen, you MUST pull the specimen back@up and answer the Preop, Transfusion and Inpatient@questions. Perform a second Type if needed. Blood Type [facility] Antibody Screen NEGATIVE [facility] ID Date Data Source [id number] 07/15/2020 05:26:00 PM EST [facility] [id number] AN PC TRANSFUSED 07/15/20 1644 [id number] AN PC TRANSFUSED 07/15/20 1433 @07/15/20 0806: Pre Op? added. RFLXG = T RX.@07/15/20 0806: Pretransfusion? added. RFLXG = TRX.@07/15/20 0806: Inpatient? added. RFLXG = TRX.Called [facility] ([facility]) @ 1415...1 PC ready. 07/15/2020 TKHOrder product and Administer when available: YHGB: 6.4Called [facility])2nd unit PC ready @1525 07/15/2020 TKHTransfused within 90 days?: NPre Op? (IF Yes, give date): N Name Value Range Interpretation Code Description Data Marlen rce(s) Supporting Document(s) Pre Op? No [facility] ID Date Data Source [id number] 07/15/2020 05:26:00 PM EST [facility] [id number] AN PC TRANSFUSED 07/15/20 1644 [id number] AN PC TRANSFUSED 07/15/20 1433 @07/15/20 0806: Pre Op? added. RFLXG = T RX.@07/15/20 08: Pretransfusion? added. RFLXG = TRX.@07/15/20 0806: Inpatient? added. RFLXG = TRX.Called [facility] ([facility]) @ 1415...1 PC ready. 07/15/2020 TKHOrder product and Administer when available: YHGB: 6.4Called [facility])2nd unit PC ready @1525 07/15/2020 TKHTransfused within 90 days?: NPre Op? (IF Yes, give date): N Name Value Range Interpretation Code Description Data Marlen rce(s) Supporting Document(s) Pretransfusion? Yes A [facility] A Blood Type Confirmation has been added to this patient.A NEW specimen must be collected for the confirmation.No blood products will be issued until the second blood typeis complete. ID Date Data Source [id number] 07/15/2020 05:26:00 PM [facility] [id number] AN PC TRANSFUSED 07/15/20 1644 [id number] AN PC TRANSFUSED 07/15/20 1433 @07/15/20 0806: Pre Op? added. RFLXG = T RX.@07/15/20 0806: Pretransfusion? added. RFLXG = TRX.@07/15/20 0806: Inpatient? added. RFLXG = TRX.Called Ayaan [facility] ([facility]) @ 1415...1 PC ready. 07/15/2020 TKHOrder product and Administer when available: YHGB: 6.4Called [facility])2nd unit PC ready @1525 07/15/2020 TKHTransfused within 90 days?: NPre Op? (IF Yes, give date): N Name Value Range Interpretation Code Description Data Marlen rce(s) Supporting Document(s) Inpatient? Yes A [facility] A Blood Type Confirmation has been added to this patient.A NEW specimen must be collected for the confirmation.No blood products will be issued until the second blood typeis complete. ID Date Data Source [id number] 07/15/2020 07:36:00 AM [facility] Name: FALGUNI ALSTON JR : 1975 Age: 45 MR#: [id number] Admit Date: 07/13/20 Provider: Morro Luque MD Room #: 291 Consulting Provider: Adan Garza MD Dictation Date: 07/15/20 Progress Note Subjective-ROS Date of service Date of service:: 07/15/20 Review of Systems Attestation/Length Of Stay: 07/13/20 20:42 Admit to Inpatient, Acute [STATUS] Routine Location: ICU Primary diagnosis: Alcoholic Gastritis, SVT, Dehydration Isolation: Droplet Status: Inpatient Admission Anticipated Length of stay:: 3-4 Midnights Vital Signs and I O Vitals and I O: Vital Signs last 12 hours Temp Pulse Resp BP Pulse Ox 07/15/20 07:24 98.4 F 90 18 102/64 97 07/15/20 07:19 90 18 97 07/15/20 04:00 98.1 F 90 18 95 07/15/20 00:19 96 07/15/20 00:00 98 F 91 18 110/75 98 07/14/20 23:20 65 18 105/65 95 07/14/20 22:27 80 105/65 07/14/20 20:00 97.9 F 65 17 105/65 98 Intake Output Last 24 Hours 07/13/20 07/14/20 07/15/20 23:59 23:59 23:59 Intake Total 2049 2530 / 2529 995 / 995 Output Total 2500 / 2500 Balance 2049 995 / 995 Current Weight 153 lb 3 oz 153 lb 3 oz 160 lb 7 oz Results Results: 07/15/20 06:25 07/15/20 06:25 Laboratory Results Last 24 hours 07/14/20 08:39: POC Glucose 417 H* 07/14/20 08:41: POC Glucose 400 H 07/14/20 10:30: VBG pH (Temp Correct) 7.49 H, VBG pCO2 (Temp Corrct 41.2, VBG pO2 (Temp Corrct) 36.3, VBG HCO3 31.1 H, VBG Total CO2 32.4 H, VBG O2 Saturation 68.6 L, VBG Base Excess 7.1 H, FiO2 21.0 07/14/20 11:10: Urine Color Yellow, Urine Appearance Clear, Urine pH 6.5, Ur Specific Neola 1.017, Urine Protein Negative, Urine Ketones Negative, Urine Blood Negative, Urine Nitrate Negative, Urine Bilirubin Negative, Urine Urobilinogen 1 eu/dl, Ur Leukocyte Esterase Negative, Add Ur Microanalysis No, Urine Glucose > 1000 mg/dl A 07/14/20 11:49: POC Glucose 198 H 07/14/20 16:33: POC Glucose 54 L 07/14/20 17:47: POC Glucose 114 07/14/20 22:03: POC Glucose 383 H 07/15/20 06:25: WBC 5.3, RBC 2.59 L, Hgb 7.0 L, Hct 22.0 L, MCV 84.9, MCH 27.0, MCHC 31.8 L, RDW 16 H, Plt Count 149, MPV 10.7, Immature Gran % (Auto) 0.8, Neut % (Auto) 56.0, Lymph % (Auto) 30.4, Beauregard % (Auto) 10.3, Eos % (Auto) 2.1, Baso % (Auto) 0.4, Lymph # (Auto) 1.6, Abs Immat Gran (auto) 0.0, Add Manual Diff No, Absolute Neutrophils 3.0, Monocytes # 0.6, Absolute Eosinophils 0.1, Absolute Basophils 0.0 07/15/20 06:25: Sodium 135, Potassium 3.7, Chloride 103, Carbon Dioxide 28, Anion Gap 8, BUN 19, Creatinine 0.8, GFR Calculation Greater than 60, Glucose 180 H, Calcium 7.2 L 07/15/20 06:25: Magnesium 2.4 Microbiology 07/13/20 18:10 Venous blood Blood Culture - Preliminary NO GROWTH AFTER 24 HOURS 07/13/20 18:10 Venous blood Blood Culture - Preliminary NO GROWTH AFTER 24 HOURS 07/13/20 22:10 Nasopharyngeal SARS-CoV-2 (PCR) Interpretation - Final No Organisms Detected Exam Orientation: Alert, Oriented x3, Cooperative and No acute distress HEENT: Mucous membr. moist/pink Lungs: normal lung sounds bilaterally Cardiovascular Exam: regular rate and normal rhythm Abdomen: Normal bowel sounds and Soft Extremities: normal inspection Skin: Skin warm and dry, Mucus membranes moist Neurological: Normal speech and Strength at 5/5 X4 ext Psych/Mental Status: normal mood Assessment/Plan A P Free Text/Narrative :: 45 y/o M initially brought in for multiple syncopal episode, vomiting, decreased oral intake, continued alcohol abuse, left sided ribcage area pain, in ER pt was found in SVT/AFib with RVR was given iv diltiazem; pt was admitted for alcoholic gastritis, contraction alkalosis, dehydration, RAYMOND and electrolyte imbalance. Labs and imaging studies reviewed. Pt was seen and examined at bedside. Pt denied abdominal pain, nausea, No new complaint. Pt now also stated that he had few episodes of brown colored emesis few days ago. Plan 1. Left lower ribcage area pain improving most probably musculoskeletal in origin Lidocaine patch, Tylenol prn 2. Low Hb Repeat Hb stable unclear etiology at this time, might be related to questionable upper GI bleeding related to alcohol gastritis with a component of alcoholic gastritis iv Protonix, will f/u with general surgery for possible EGD NPO after midnight will hold aspirin for now 3. Alcoholic gastritis improved will advance diet at tolerated. pantoprazole 4. Dehydration resolved 5. Leukocytosis resolved was most probably reactive 6. Hyponatremia resolved 7. Hypokalemia will replete as needed 8. Acute kidney injury resolved 9. Syncope was most probably secondary to debility due to dehydration CT head- negative no focal neurological deficit 10. DM type 2 uncontrolled Continue home long-acting insulin regimen, insulin sliding scale, diabetic diet 11. SVT, atrial fibrillation with RVR, h/o Paroxysmal AFib resolved currently in sinus rhythm -Continue home metoprolol CHADVASc score 1 will resume Aspirin 12. Alcohol abuse will continue to monitor for withdrawal -[facility] protocol thiamine, folic acid, multivitamin 13. CT abdomen showed - 4.2 cm partially calcified lesion, likely in the body of the pancreas. will f/u MRI with and without contrast for further evaluation. 14. contraction alkalosis resolved Dictated by: <Electronically signed by Morro Luque MD> Morro Luque MD 07/15/20 0829 Morro Luque MD SIGNATURE DA Report Cosigners: D: STACIA 07/15/20735 T: STACIA 07/15/20735 CC: Name Value Range Interpretation Code Description Data [facility](s) Supporting Document(s) ID Date Data Source [id number] 07/15/2020 09:03:00 AM EST [facility] Special Instructions: can use blood samp le in labADD ON TEST Name Value Range Interpretation Code Description Data Marlen rce(s) Supporting Document(s) Iron [Mass/volume] in Serum or Plasma 34 ug/dL 65-175 Below low normal [facility] Iron values may be falsely elevated in s johann samples frompatients treated with anticoagulants (e.g., hemodialysispatients) Iron binding capacity [Moles/volume] in Serum or Plasma 13 20-55 Below low normal [facility] Iron binding capacity [Mass/volume] in Serum or Plasma 255 ug/dL 250 -450 N [facility] ID Date Data Source [id number] 07/15/2020 07:34:00 AM EST [facility] Name Value Range Interpretation Code Description Data Marlen rce(s) Supporting Document(s) Magnesium [Mass/volume] in Serum or Plasma 2.4 mg/dL 1.3-2.7 N [facility] ID Date Data Source [id number] 07/15/2020 07:27:00 AM [facility] Name Value Range Interpretation Code Description Data Marlen rce(s) Supporting Document(s) Leukocytes [#/volume] in Blood by Automated count 5.3 10*3/uL 4.45-10 .71 N [facility] Erythrocytes [#/volume] in Blood by Automated count 2.59 10*6/uL 4.3-6.1 Below low normal [facility] Hemoglobin [Moles/volume] in Blood 7.0 g/dL 13-18 Below low no rmal [facility] Hematocrit [Volume Fraction] of Blood by Automated count 22.0 % 42-52 Below low normal [facility] Erythrocyte mean corpuscular volume [Ent itic volume] in Cord blood by Automated count 84.9 fL 80-96 N [facility] Erythrocyte mean corpuscular hemoglobin [Entitic mass] by Automated count 27.0 pg 27-31 N [facility] Erythrocyte mean corpuscular hemoglobin concentration [Mass/volume] in Cord blood 31.8 g/dL 33-[address] [facility] Erythrocyte distribution width [Entitic volume] by Automated cou nt 16 % 11-15 Above high normal [facility] Platelets [#/volume] in Blood by Automated count 149 10*3/uL 130-472 N [facility] Platelet mean volume [Entitic volume] in Blood 10.7 fL 9.1-13.1 N [facility] Neutrophils/100 leukocytes in Blood by Automated count 56.0 % 41- 77 N [facility] Neutrophils [#/volume] in Blood by Automated count 3.0 U 1.7-7.6 N [facility] Lymphocytes/100 leukocytes in Blood by Automated count 30.4 % 14- 46 N [facility] Lymphocytes [#/volume] in Blood by Automated count 1.6 U 0.6-4.6 N [facility] Monocytes/100 leukocytes in Blood by Automated count 10.3 % 4-12 N [facility] Monocytes [#/volume] in Blood by Automated count 0.6 U 0.2-1.2 N [facility] Eosinophils/100 leukocytes in Blood by Automated count 2.1 % 0-7 N [facility] Eosinophils [#/volume] in Blood by Automated count 0.1 U 0.0-0.5 N [facility] Basophils/100 leukocytes in Blood by Automated count 0.4 % 0.4-1 .3 N [facility] Basophils [#/volume] in Blood by Automated count 0.0 U 0.0-0.2 N [facility] NUCLEATED RED BLOOD CELL 0 % [facility] NUCLEATED RED BLOOD CELL# 0 U [facility] Immature granulocytes [Presence] in Blood by Automated count 0-2 N [facility] Immature granulocytes [#/volume] in Blood by Automated count 0.0 U 0-0.1 N [facility] Manual Differential panel - Blood NO [facility] ID Date Data Source [id number] 07/15/2020 07:33:00 AM EST [facility] Name Value Range Interpretation Code Description Data Marlen rce(s) Supporting Document(s) Urea nitrogen [Mass/volume] in Serum or Plasma 19 mg/dL 9-23 N [facility] Sodium [Moles/volume] in Serum or Plasma 135 mmol/L 132-146 [facility] Potassium [Moles/volume] in Serum or Plasma 3.7 mmol/L 3.5-5.5 [facility] Chloride [Moles/volume] in Serum or Plasma 103 mmol/L 99-109 [facility] Carbon dioxide, total [Moles/volume] in Serum or Plasma 28 mmol/L 20 -31 [facility] Anion gap in Serum or Plasma 8 mmol/L 8-16 N [facility] Glucose [Mass/volume] in Serum or Plasma 180 mg/dL 74-106 Above high normal [facility] Creatinine 0.8 mg/dL 0.5-1.1 [facility] Glomerular filtration rate/1.73 sq M.pre dicted [Volume Rate/Area] in Serum or Plasma Greater Than 60 ABOVE 60 [facility] Calcium [Mass/volume] in Serum or Plasma 7.2 mg/dL 8.5-10.1 Below low normal [facility] ID Date Data Source [id number] 07/14/2020 11:27:00 AM EST [facility] Reason for ordering culture: Abnormal fi ndings UAMethod of Collection:: Voided Name Value Range Interpretation Code Description Data Marlen rce(s) Supporting Document(s) Color of Urine [facility] Appearance of Urine CLEAR [facility] pH of Urine by Test strip 6.5 5-8 [facility] Specific gravity of Urine by Refractometry 1.017 1.005-1.030 [facility] Leukocyte esterase [Presence] in Urine by Test strip NEGAT RHETT [facility] Nitrite [Presence] in Urine by Test strip NEGATIVE [facility] Protein [Presence] in Urine by Test strip NEGATIVE [facility] Glucose [Mass/volume] in Urine by Automated test strip > 1000 mg /dl NEGATIVE Abnormal (applies to non-numeric results) [facility] Ketones [Presence] in Urine by Test strip NEGATIVE [facility] Urobilinogen [Presence] in Urine 0.2-1 EU/dl [facility] Bilirubin.total [Presence] in Urine by Automated test strip NEGATIVE [facility] Erythrocytes [#/volume] in Urine by Test strip NEGATIVE NEGATIVE [facility] URINE MICROSCOPIC? (CIF) NO [facility] ID Date Data Source [id number] 07/14/2020 10:38:00 AM EST [facility] Oxygen Delivery Method Room Air Name Value Range Interpretation Code Description Data Marlen rce(s) Supporting Document(s) pH of Venous blood 7.49 7.25-7.45 Above [facility] Carbon dioxide [Partial pressure] in Venous blood 41.2 mm[Hg] 41.0-51 .0 N [facility] Oxygen [Partial pressure] in Venous blood 36.3 mm[Hg] 25.0-40.0 N [facility] 68.6 Bicarbonate [Moles/volume] in Venous blood 31.1 mmol/L 22.0- 26.0 Above [facility] Base excess in Venous blood by calculation 7.1 -3.0-3.0 Abov e [facility] Carbon dioxide, total [Moles/volume] in Venous blood 32.4 mmol/L 23-30 Above high normal [facility] 21.0@Reenter manual test result: 21.0%@b y Caitie Delgadillo at 07/14/20 1037. ID Date Data Source [id number] 07/14/2020 07:53:00 AM EST [facility] Name: FALGUNI ALSTON JR : 1975 Age: 45 MR#: [id number] Admit Date: 07/13/20 Provider: Morro Luque MD Room #: 283 Consulting Provider: Dictation Date: 07/14/20 Progress Note Subjective-ROS Date of service Date of service:: 07/14/20 Review of Systems Attestation/Length Of Stay: 07/13/20 20:42 Admit to Inpatient, Acute [STATUS] Routine Location: ICU Primary diagnosis: Alcoholic Gastritis, SVT, Dehydration Isolation: Droplet Status: Inpatient Admission Anticipated Length of stay:: 3-4 Midnights Vital Signs and I O Vitals and I O: Vital Signs last 12 hours Temp Pulse Pulse Resp BP BP Pulse Ox 07/14/20 06:15 96 07/14/20 06:07 89 16 98/70 98 07/14/20 04:11 98.0 F 90 14 99/69 99 07/14/20 04:00 98.0 F 90 14 99/69 07/14/20 00:35 87 18 87/65 96 07/14/20 00:05 90 20 97/72 99 07/14/20 0 0:00 90 90 18 88/64 88/64 98 07/13/20 23:11 98.3 F 105 H 20 125/79 99 07/13/20 23:04 105 H 113/75 07/13/20 23:00 102 H 18 113/75 99 07/13/20 22:40 107 H 07/13/20 22:30 98.3 F 105 H 20 125/79 99 Intake Output Last 24 Hours 07/12/20 07/13/20 07/14/20 23:59 23:59 23:59 Intake Total 2049 1090 / 1090 Output Total 200 / 200 Balance 2049 890 / 890 Current Weight 153 lb 3 oz 153 lb 3 oz Results Results: 07/14/20 05:20 07/14/20 05:20 Laboratory Results Last 24 hours 07/13/20 18:10: WBC 21.4 H, RBC 4.99, Hgb 13.3, Hct 39.4 L, MCV 79.0 L, MCH 26.7 L, MCHC 33.8, RDW 16 H, Plt Count 346, MPV 9.8, Immature Gran % (Auto) 1.1, Neut % (Auto) 86.3 H, Lymph % (Auto) 6.2 L, Beauregard % (Auto) 6.3, Eos % (Auto) 0.0, Baso % (Auto) 0.1 L, Lymph # (Auto) 1.3, Abs Immat Gran (auto) 0.2 H, Add Manual Diff Manual diff added, Total Counted 100, Neutrophils (Manual) 85 H, Absolute Neutrophils 18.5 H, Lymphocytes (Manual) 14, Monocytes (Manual) 1 L, Monocytes # 1.3 H, Absolute Eosinophils 0.0, Absolute Basophils 0.0, Platelet Estimate Appears normal, RBC Morphology Appears normal 07/13/20 18:10: PT 11.0, INR 1.0, PTT (Radha) 22.8 07/13/20 18:10: Sodium 121 L, Potassium 3.1 L, Chloride 76 L, Carbon Dioxide 32 H, Anion Gap 16, BUN 64 H, Creatinine 1.5 H, GFR Calculation 51, Glucose 300 H, Calcium 8.9, Total Bilirubin 1.0, AST 19, ALT 35, Alkaline Phosphatase 116, Serum Total Protein 7.4, Albumin 3.6 07/13/20 18:10: Lactic Acid 2.5 H 07/13/20 18:10: Amylase 36, Lipase 27 L 07/13/20 18:1 0: Magnesium 2.9 H 07/13/20 18:10: Hemoglobin A1c 10.3 H, Estim Average Glucose 249 07/13/20 19:10: Puncture Site Left radial artery, ABG pH (Temp Correct) 7.50 H, ABG pCO2 (Temp Corrct 38.1, ABG pO2 (Temp Correct 77.3, ABG HCO3 29.9 H, ABG Total CO2 31.1 H, ABG O2 Sat (Measured) 96.0, ABG Base Excess 6.4 H, Tay Test Performed, Arterial/Alveolar Ratio 0.7 L, FiO2 21 07/13/20 22:10: Lactic Acid 1.2 07/13/20 23:01: POC Glucose 284 H 07/14/20 00:35: Sodium 126 L, Potassium 3.2 L, Chloride 87 L, Carbon Dioxide 30, Anion Gap 12, BUN 58 H, Creatinine 1.1, GFR Calculation Greater than 60, Glucose 195 H, Calcium 7.6 L D 07/14/20 05:20: WBC 12.2 H, RBC 3.50 L, Hgb 9.3 L, Hct 28.0 L, MCV 80.0, MCH 26.6 L, MCHC 33.2, RDW 16 H, Plt Count 225 D, MPV 10.7, Immature Gran % (Auto) 0.9, Neut % (Auto) 65.7, Lymph % (Auto) 24.1, Beauregard % (Auto) 8.5, Eos % (Auto) 0.6, Baso % (Auto) 0.2 L, Lymph # (Auto) 2.9, Abs Immat Gran (auto) 0.1, Add Manual Diff No, Absolute Neutrophils 8.0 H, Monocytes # 1.0, Absolute Eosinophils 0.1, Absolute Basophils 0.0 07/14/20 05:20: Sodium 128 L, Potassium 3.3 L, Chloride 92 L, Carbon Dioxide 31, Anion Gap 8, BUN 51 H, Creatinine 1.0, GFR Calculation Greater than 60, Glucose 72 L, Calcium 7.8 L 07/14/20 06:00: POC Glucose 64 L 07/14/20 07:12: POC Glucose 113 Microbiology 07/13/20 22:10 Nasopharyngeal SARS-CoV-2 (PCR) Interpretation - Final No Organisms Detected Exam Orientation: Alert, Oriented x3 and Cooperative HEENT: Mucous membr. moist/pink Lungs: normal lung sounds bilaterally Cardiovascular Exam: regular rate and normal rhythm Abdomen: Normal bowel sounds Extremities: normal inspection Skin: Skin warm and dry, Mucus membranes moist Neurological: Normal gait, Normal speech and Strength at 5/5 X4 ext Psych/Mental Status: normal mood Assessment/Plan A P Free Text/Narrative :: 45 y/o M initially brought in for multiple syncopal episode, vomiting, decreased oral intake, continued alcohol abuse, left sided ribcage area pain, in ER pt was found in SVT/AFib with RVR was given iv diltiazem; pt was admitted for alcoholic gastritis, contraction alkalosis, dehydration, RAYMOND and electrolyte imbalance. Labs and imaging studies reviewed. Pt c/o mild left sided lower ribcage area pain, exacerbated by deep breathing. Plan 1. Left lower ribcage area pain most probably musculoskeletal in origin Lidocaine patch Tylenol prn 2. Alcoholic gastritis improved will advance diet as tolerated. pantoprazole 3. Contraction alkalosis will f/u VBG 4. Dehydration improving ivf NS 100 ml/hr 5. Leukocytosis improving most probably reactive no sign and symptom suggestive of active infection will f/u repeat labs 6. Hyponatremia improving iv NS 7. Hypokalemia will replete as needed 8. Acute kidney injury most probably prerenal improving ivf NS 9. Syncope was most probably secondary to debility due to dehydration CT head- negative no focal neurological deficit 10. DM type 2 uncontrolled Continue home long-acting insulin regimen, insulin sliding scale, diabetic diet 11. SVT, atrial fibrillation with RVR, h/o Paroxysmal AFib resolved currently in sinus rhythm -Continue home metoprolol dose CHADVASc score 1 will continue Aspirin 12. Alcohol abuse will continue to monitor for withdrawal -[facility] protocol thiamine, folic acid, multivitamin 13. CT abdomen showed - 4.2 cm partially calcified lesion, likely in the body of the pancreas. will f/u MRI with and without contrast for further evaluation. Care plan: Plan of care discussed with patient and or family, Patient encouraged to ask questions about plan, Patient agrees with plan of care and Discharge plan and instructions discussed with patient and or family Dictated by: <Electronically signed by Morro Luque MD> Morro Luque MD 07/14/20 1129 Morro Luque MD SIGNATURE DA Report Cosigners: D: STACIA 07/14/20 0753 T: STACIA 07/14/20 0753 CC: Name Value Range Interpretation Code Description Data Marlen rce(s) Supporting Document(s) ID Date Data Source [id number] 07/14/2020 06:15:00 AM EST [facility] Name Value Range Interpretation Code Description Data Marlen rce(s) Supporting Document(s) Urea nitrogen [Mass/volume] in Serum or Plasma 51 mg/dL 9-23 Above high normal [facility] Sodium [Moles/volume] in Serum or Plasma 128 mmol/L 132-146 Below low normal [facility] @Review & document.@A repeat was not nee ded due to historical results. Potassium [Moles/volume] in Serum or Plasma 3.3 mmol/L 3.5-5.5 Below low normal [facility] Chloride [Moles/volume] in Serum or Plasma 92 mmol/L 99-109 [place] w low normal [facility] Carbon dioxide, total [Moles/volume] in Serum or Plasma 31 mmol/L 20 -31 N [facility] Anion gap in Serum or Plasma 8 mmol/L 8-16 N [facility] Glucose [Mass/volume] in Serum or Plasma 72 mg/dL 74-106 Below low [facility] Creatinine 1.0 mg/dL 0.5-1.1 [facility] Glomerular filtration rate/1.73 sq M.pre dicted [Volume Rate/Area] in Serum or Plasma Greater Than 60 ABOVE 60 [facility] Calcium [Mass/volume] in Serum or Plasma 7.8 mg/dL 8.5-10.1 Below low normal [facility] ID Date Data Source [id number] 07/14/2020 06:22:00 AM EST [facility] Name Value Range Interpretation Code Description Data Marlen rce(s) Supporting Document(s) Leukocytes [#/volume] in Blood by Automated count 12.2 10*3/uL 4.45-10.71 Above high normal [facility] Erythrocytes [#/volume] in Blood by Automated count 3.50 10*6/uL 4.3-6.1 Below low normal [facility] Hemoglobin [Moles/volume] in Blood 9.3 g/dL 13-18 Below low no rmal [facility] Hematocrit [Volume Fraction] of Blood by Automated count 28.0 % 42-52 Below low normal [facility] Erythrocyte mean corpuscular volume [Ent itic volume] in Cord blood by Automated count 80.0 fL 80-96 N [facility] ital Erythrocyte mean corpuscular hemoglobin [Entitic mass] by Automated count 26.6 pg 27-31 Below low normal [facility] pital Erythrocyte mean corpuscular hemoglobin concentration [Mass/volume] in Cord blood 33.2 g/dL 33-37 N [facility] ital Erythrocyte distribution width [Entitic volume] by Automated cou nt 16 % 11-15 Above high normal [facility] Platelets [#/volume] in Blood by Automated count 225 10*3/uL 130-472 No range defined, or normal ranges don't apply [facility] ospital Repeated by: Varsha Salazar 07/14/20 06 21.Result Confirmation: 228 10e3/ul Platelet mean volume [Entitic volume] in Blood 10.7 fL 9.1-13.1 N [facility] Neutrophils/100 leukocytes in Blood by Automated count 65.7 % 41- 77 N [facility] Neutrophils [#/volume] in Blood by Automated count 8.0 U 1.7-7.6 Above high normal [facility] Lymphocytes/100 leukocytes in Blood by Automated count 24.1 % 14- 46 N [facility] Lymphocytes [#/volume] in Blood by Automated count 2.9 U 0.6-4.6 N [facility] Monocytes/100 leukocytes in Blood by Automated count 8.5 % 4-12 N [facility] Monocytes [#/volume] in Blood by Automated count 1.0 U 0.2-1.2 N [facility] Eosinophils/100 leukocytes in Blood by Automated count 0.6 % 0-7 N [facility] Eosinophils [#/volume] in Blood by Automated count 0.1 U 0.0-0.5 N [facility] Basophils/100 leukocytes in Blood by Automated count 0.2 % 0.4-1.3 Below low normal [facility] Basophils [#/volume] in Blood by Automated count 0.0 U 0.0-0.2 N [facility] NUCLEATED RED BLOOD CELL 0 % [facility] NUCLEATED RED BLOOD CELL# 0 U [facility] Immature granulocytes [Presence] in Blood by Automated count 0-2 N [facility] Immature granulocytes [#/volume] in Blood by Automated count 0.1 U 0-0.1 N [facility] Manual Differential panel - Blood NO [facility] ID Date Data Source [id number] 07/15/2020 09:02:00 AM EST [facility] @07/15/20 0807: Type NC added. RFLXG = T YPE.@ ROBBIE DATE was changed from 07/15/20 to 07/14/20@ by CRISTOBAL. Old specimen was [id number]. Name Value Range Interpretation Code Description Data Marlen rce(s) Supporting Document(s) Blood Type [facility] ID Date Data Source [id number] 07/14/2020 01:27:00 AM [facility] Name Value Range Interpretation Code Description Data Marlen rce(s) Supporting Document(s) Urea nitrogen [Mass/volume] in Serum or Plasma 58 mg/dL 9-23 Above high normal [facility] Sodium [Moles/volume] in Serum or Plasma 126 mmol/L 132-146 Below low normal [facility] @Review & document.@A repeat was not nee ded due to historical results. Potassium [Moles/volume] in Serum or Plasma 3.2 mmol/L 3.5-5.5 Below low normal [facility] Chloride [Moles/volume] in Serum or Plasma 87 mmol/L 99-109 Belo w low normal [facility] Carbon dioxide, total [Moles/volume] in Serum or Plasma 30 mmol/L 20 -31 N [facility] Anion gap in Serum or Plasma 12 mmol/L 8-16 N [facility] Glucose [Mass/volume] in Serum or Plasma 195 mg/dL 74-106 Above high normal [facility] Creatinine 1.1 mg/dL 0.5-1.1 [facility] Glomerular filtration rate/1.73 sq M.pre dicted [Volume Rate/Area] in Serum or Plasma Greater Than 60 ABOVE 60 [facility] Calcium [Mass/volume] in Serum or Plasma 7.6 mg/dL 8.5-10.1 DL [facility] @A REPEAT WAS NOT INDICATED DUE TO RELAT ED TESTS. ID Date Data Source [id number] 07/13/2020 10:58:00 PM [facility] [address] [place] [address] [phone] NAME SEX PT STATUS ACCOUNT NUMBER FALGUNI ALSTON Rico Barnett ADM IN [id number] ORDERING PHYSICIAN LOCATION MEDICAL RECORD NO. William Ramos [facility] [id number] ATTENDING PHYSICIAN DATE OF DATE OF EXAM/TIME Olivia Woods NP 1975 07/13/202110 TYPE / EXAM CT Abd/pel w/o contrast REASON FOR EXAM Vomiting Clinical History/Indication for Exam: Vomiting CT ABDOMEN AND PELVIS WITHOUT INTRAVENOUS CONTRAST INDICATION: Vomiting TECHNIQUE: Axial computed tomography images of the abdomen and pelvis without intravenous contrast. Sagittal and coronal reformatted images were created and reviewed. This CT exam was performed using one or more of the following dose reduction techniques: automated exposure control, adjustment of the mA and/or kV according to patient size, and/or use of iterative reconstruction technique. COMPARISON: No relevant prior studies available. FINDINGS: Lung bases: Unremarkable. No mass. No consolidation. Mediastinum: Small hiatal hernia. ABDOMEN: Liver: Unremarkable. Gallbladder and bile ducts: Unremarkable. No calcified stones. No ductal dilation. Pancreas: Pancreatic calcifications are seen. 4.2 cm partially calcified lesion likely in the body of the pancreas. No ductal dilation. Spleen: Unremarkable. No splenomegaly. Adrenals: Unremarkable. No mass. Kidneys and ureters: Unremarkable. No obstructing stones. No hydronephrosis. Stomach and bowel: Limited evaluation of proximal gastric wall thickness due to underdistention. PELVIS: Appendix: No findings to suggest acute appendicitis. Bladder: Unremarkable. No stones. Reproductive: Prostatomegaly. ABDOMEN and PELVIS: Intraperitoneal space: Unremarkable. No free air. No significant fluid collection. Bones/joints: Degenerative change in the spine. Superior endplate compression fracture at T12, age indeterminate. No dislocation. Soft tissues: Fat-containing umbilical hernia. Anterior abdominal wall subcutaneous stranding may be from prior injections. Vasculature: Atherosclerotic disease. No abdominal aortic aneurysm. Lymph nodes: Unremarkable. No enlarged lymph nodes. IMPRESSION: 1. 4.2 cm partially calcified lesion, likely in the body of the pancreas. Consider MRI with and without contrast for further evaluation. 2. Prostatomegaly. 3. Mild superior endplate compression fracture at T12, age indeterminate. Automatic exposure control was used as a dose lowering technique. REPORT SIGNATURE ON FILE 07/13/2020 (22:58 Eastern Time ) Signed by: Shruti Brown M.D. Reported By Shruti Brown MD on 07/13/202257 Signed By Shruti Brown MD on 07/13/202257 Date Time CC: Olivia Woods; Shruti Brown MD Techn: CLARA Trans Dt/Tm: Trans by: DT Prt Dt/Tm: : Total DLP = 323.00 mGy-cm : Total Radiation Dose = 4.8450 mSv Lifetime Dose: 7.0429 mSv Name Value Range Interpretation Code Description Data Marlen rce(s) Supporting Document(s) ID Date Data Source [id number] 07/13/2020 10:58:00 PM [facility] @07/13/20 1847: 4hr Lactic Acid added. R FLXG = RFX LACTIC. Name Value Range Interpretation Code Description Data Marlen rce(s) Supporting Document(s) Lactate [Mass/volume] in Serum or Plasma 1.2 mmol/L 0.5-2.2 [facility] A HIGH RESULT ON THIS 4HR LACTIC ACID WI LL NOT REFLEXANOTHER - YOU MUST ORDER ONE IF YOU WANT IT REPEATED ID Date Data Source [id number] 07/13/2020 10:42:00 PM [facility] RYAN COVID-19 IS AN ISOTHERMAL NA A TECHNOLOGYNORMAL VALUE IS "SARS-COV-2 COVID 19 NOT DETECTED"False negative results may occur if a specimen is improperlycollected,transported or handled.False negative results may also occur if amplicationinhibitors are present in the specimen or if inadequatelevels of viruses are present in the specimen.As with any molecular test, if the virus mutates in thetarget region, Covid-19 may not be detected or may bedetected less predictably.ID NOW COVID-19 is intended for testing a swab directlywithout elution in viral transport media as dilution willresult in decreased detection of low positive samples thatare near the limit of detection of the test.SWAB SAMPLES ELUTED IN VTM ARE NOT APPROPRIATE FOR USE INTHIS TEST.No Organisms Detected Name Value Range Interpretation Code Description Data Marlen rce(s) Supporting Document(s) ID Date Data Source [id number] 07/13/2020 09:06:00 PM [facility] Name: FALGUNI ALSTON JR, DOB: 1975 Age: 45 MR#: [id number] Admit Date: 07/13/20 Provider: William Ramos Room #: 283 Consulting Provider: Dictation Date: 07/13/20 History Physical HPI Date of service Date of service:: 07/13/20 History of Present Illness Nurse screening for coronavirus: Recent Travel outside the No country (where) Has patient experienced No coronavirus symptoms Emergency Room stated complaint: Multi system (Adult) Admitted From: Emergency Dept Primary (Admitting) Diagnosis: Alcoholic gastritis with contraction alkalosis, dehydration, SVT Source of information: Patient and Emergency Med Personnel Place Event/Injury Occurred: Reports home HPI Free Text/Narrative:: 45-year-old man with a history of alcohol abuse, insulin resistant diabetes mellitus, recurrent pancreatitis, pancreatic pseudocyst, paroxysmal atrial fibrillation wasbrought into the em ergency department by ambulance today for multiple syncopal episodes since early this morning. Patient reports that he has been vomiting and had p.o. intolerance for the last 3 days. Patient notes that he did continue to alcohol use during his p.o. intolerance. Patient reports that he has 6/10 rib pain at this time, which worsens 8/10 with cough or movement and improves with laying still. Patient denies radiation of pain. Patient has not attempted any self- care for this pain prior to arrival emergency department. Patient denies headache, current visual disturbance, vertigo-like symptoms, neck pain, difficulty swallowing, palpitations, current nausea/vomiting, diarrhea, blood in stool, blood in urine, pain/weakness in upper/lower extremities or any other concerns at this time Comprehensive 10 point review of systems completed. Negative or noncontributory unless listed abovein HPI. Emergency department evaluation and treatment: During his emergency department evaluation treatment patient experienced a single episode of SVT with a heart rate approximately 1 [id number] those treated with 2 doses of diltiazem 20 mg IV. When evaluated emergency department by hospitalist team patient's heart rate was 110 on the monitor with Sharee gomez Lux studies were significant for elevated pH, elevated bicarbonate, low sodium, elevated glucose,normal lipase and amylase, low potassium which was repleted with 40 mg p.o. an elevated white blood cell count. Patient's lactic acid was 2.5 initially, pending repeat at this time. INR 1.0. Patient was also treated with IV ceftriaxone 2 g and blood cultures were drawn prior to administration. Patient was repleted with 2 L of normal saline IV fluid. CT head was negative for any acute pathology, rib films/chest x-ray negative for acute pathology or rib fracture. Allergies/Home Meds Allergies Allergy/AdvReac Type Severity Reaction Status Date / Time No Known Drug Allergies Allergy Verified 07/13/20 18:05 Home Medications Medication Instructions Recorded Confirmed Last Taken Type One Daily For Men 1 ea PO DAILY #30 tab 03/31/13 07/13/20 07/12/20 Rx blood- glucose meter #1 ea 03/22/20 07/13/20 07/12/20 Rx aspirin 81 mg tablet,delayed 81 mg PO DAILY #30 tab 05/28/20 07/13/20 07/13/20 Rx release atorvastatin 80 mg tablet 80 mg PO QDAY #30 tab 05/28/20 07/13/20 07/12/20 Rx blood sugar diagnostic #150 box 05/28/20 07/13/20 07/12/20 Rx folic acid 1 mg tablet 1 mg PO DAILY #30 tab 05/28/20 07/13/20 07/13/20 Rx gabapentin 400 mg capsule 600 mg PO TID #120 cap 05/28/20 07/13/20 07/12/20 Rx insulin glargine 100 unit/mL (3 32 unit SQ BID #15 ml MDD 64 units 05/28/20 07/13/20 07/12/20 Rx mL) subcutaneous pen insulin lispro 100 unit/mL 1 sliding scale dose SQ 05/28/20 07/13/20 07/12/20 Rx subcutaneous solution USEASDIRECTD #10 ml MDD 45 units insulin syr/ndl U100 half hiram 0.3 #100 each 05/28/20 07/13/20 07/12/20 Rx mL 31 gauge x 5/16" metoprolol tartrate 100 mg tablet 100 mg PO BID #60 tab 05/28/20 07/13/20 07/13/20 Rx pantoprazole 40 mg tablet,delayed 40 mg PO DAILY #30 tab 05/28/20 07/13/20 07/12/20 Rx release pen needle, diabetic 29 gauge x #100 box 05/28/20 07/13/20 07/12/20 Rx 1/2" thiamine HCl (vitamin B1) 100 mg 100 mg PO DAILY #90 tab 05/28/20 07/13/20 07/13/20 Rx tablet Medication list updated and reviewed:: Yes PFSH Medical History Alcohol abuse Chronic pancreatitis Diabetes mellitus, type 2 Gastroesophageal reflux disease History of varicella Hypertension Recurrent DKA Smoker Surgical History History of vasectomy Family History Mother No problems noted. Father No problems noted. Sister No problems noted. Son No problems noted. Son No problems noted. Daughter No problems noted. Daughter No problems noted. 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 pets and animals: Yes pets and animals: dog(s) leisure activities: hunting, fishing and other Hx Recent Travel (where): No caffeine: No high-fat food intake: 0-1 times daily daily servings fruits/ve-4 daily servings of milk/calcium: 2-4 eating out: rarely or never reads food labels: usually or always during the past year weight has: remained stable Smoking Status: Current every day smoker quit status: considering quitting alcohol intake: current alcohol intake frequency: 0-2 drinks per day substance use type: does not use special marielle needs: No seatbelt use: always helmet use: Yes drive intox or ride w/ intox line haul truck driver: No water heater temp set < 120 deg: Yes working smoke detector in home: Yes fire extinguisher in home: Yes carbon monox detector in home: Yes firearms in home: Yes firearms unloaded and locked: Yes victim of physical abuse: No victim of emotional abuse: No Sickle cell Sickle Cell Screening:: Not indicated Vital Signs and I O Vitals and I O: Vital Signs last 12 hours Temp Pulse Resp BP Pulse Ox 07/13/20 18:33 99.2 F 07/13/20 17:39 99.2 F 144 H 18 100/70 97 Intake Output Last 24 Hours 07/11/20 07/12/20 07/13/20 23:59 23:59 23:59 Intake Total 2049 Balance 2049 Current Weight 167 lb Height,Weight BMI: Ht Wt BMI Current Height 5 ft 9 in Current Weight 167 lb Results Results: 07/13/20 18:10 07/13/20 18:10 Laboratory Results Last 24 hours 07/13/20 18:10: WBC 21.4 H, RBC 4.99, Hgb 13.3, Hct 39.4 L, MCV 79.0 L, MCH 26.7 L, MCHC 33.8, RDW 16 H, Plt Count 346, MPV 9.8, Immature Gran % (Auto) 1.1, Neut % (Auto) 86.3 H, Lymph % (Auto) 6.2 L, Beauregard % (Auto) 6.3, Eos % (Auto) 0.0, Baso % (Auto) 0.1 L, Lymph # (Auto) 1.3, Abs Immat Gran (auto) 0.2 H, Add Manual Diff Manual diff added, Total Counted 100, Neutrophils (Manual) 85 H, Absolute Neutrophils 18.5 H, Lymphocytes (Manual) 14, Monocytes (Manual) 1 L, Monocytes # 1.3 H, Absolute Eosinophils 0.0, Absolute Basophils 0.0, Platelet Estimate Appears normal, RBC Morphology Appears normal 07/13/20 18:10: PT 11.0, INR 1.0, PTT ([place]) 22.8 07/13/20 18:10: Sodium 121 L, Potassium 3.1 L, Chloride 76 L, Carbon Dioxide 32 H, Anion Gap 16, BUN64 H, Creatinine 1.5 H, GFR Calculation 51, Glucose 300 H, Calcium 8.9, Total Bilirubin 1.0, AST 19,ALT 35, Alkaline Phosphatase 116, Serum Total Protein 7.4, Albumin 3.6 07/13/20 18:10: Lactic Acid 2.5 H 07/13/20 18:10: Amylase 36, Lipase 27 L 07/13/20 19:10: Puncture Site Left radial artery, ABG pH (Temp Correct) 7.50 H, ABG pCO2 (Temp Corrct 38.1, ABG pO2 (Temp Correct 77.3, ABG HCO3 29.9 H, ABG Total CO2 31.1 H, ABG O2 Sat (Measured) 96.0, ABG Base Excess 6.4 H, Tay Test Performed, Arterial/Alveolar Ratio 0.7 L, FiO2 21 Exam Const General: cooperative, comfortable and no acute distress Orientation: alert and oriented x3 HENMT Head: normal to inspection Mouth: moist mucous membranes abnormal Details: parched Eyes Pupils: PERRL EOM: EOM intact bilaterally Neck Neck: normal visual inspection and full ROM Resp Effort Inspection: normal respiratory effort, able to speak in complete sentences and other (Patient does report increased pain with deep inspiration) Auscultation: clear to auscultation bilaterally Cardio Rate: tachycardic Rhythm: abnormal rhythm irregularly irregular Heart Sounds: S1 normal and S2 normal Pulses: radial pulses present GI Palpation: soft, not firm, no guarding and nontender Auscultation: normal bowel sounds Skin Lesions: no lesions Rashes: no rashes Neuro General: patient oriented x3 Cranial Nerves: CN's II-XII intact bilaterally Extrem General: normal to inspection, full ROM and no pedal edema Psych Affect: normal affect Attitude: cooperative Assessment/Plan A P Free Text/Narrative :: 45-year-old male being admitted to intensive care unit [facility] for alcoholic gastritis, contraction alkalosis, dehydration, SVT, leukocytosis, hyponatremia, hypokalemia, acute kidney injury. 1. Alcoholic gastritis -N.p.o., IV Protonix, CT abdomen pelvis ordered 2. Contraction alkalosis -IV fluid replacement, continue to monitor 3. Dehydration -Daily BMP ordered, IV fluid ordered at 125 mL/h 4. Leukocytosis -Etiology uncertain at this time, suspect vomiting versus infective source -Blood cultures pending, 2 g Rocephin IV in emergency department -Continue IV antibiotics deferred to my attending physician Dr. Luque in the morning 5. Hyponatremia -Daily BMP ordered, IV fluid replacement 125 mL/h 6. Hypokalemia -Repleted with 40 mEq p.o. in emergency department, daily BMP ordered, will replete as needed 7. Acute kidney injury -BUN/PROSECUTING ATTORNEY 64/1.5 the time of admission -Received 2 L IV fluid bolus in emergency department, will continue IV fluids at 125 mL/h during admission -Continue to monitor daily BMPs 6. Syncope -CT head negative for acute pathology -Suspect secondary to dehydration -Neurochecks ordered 7. Diabetes mitis -Sliding scale ordered -Continue home long-acting insulin regimen 8. SVT, atrial fibrillation with RVR -Continue home metoprolol dose -Patient placed in ICU as he may require diltiazem drip -Continuous cardiac monitoring 9. History of alcohol abuse -CIWA protocol ordered Patient is a full code Attending physician Dr. Moore was briefed on the patient by the attending ER physician Dr. Hernández prior to shift changes 7 PM. Once patient was evaluated by myself in the emergency department Dr. Rios was contacted and the plan was developed per his recommendations. 52 min spent interviewing the patient, reviewing medical records, and developing the plan. Attending physician is Dr. Luque. They were briefed on the patient, assisted with development of theplan, and were available for consult. Note was transcribed using [employer] phone. The note was reviewed for accuracy however, some grammatical or wording mistakes may be present given the nature of dictation. Please contact provider for clarification if needed Care plan: Plan of care discussed with patient and or family, Patient encouraged to ask questions about plan and Patient agrees with plan of care Dictated by: <Electronically signed by William SARKAR> William SARKAR 07/13/202127 William Ramos SIGNATURE DA Report Cosigners: <<Signature on File>> Morro Luque MD 07/14/20711 <Electronically signed by Morro Luque MD> Morro Luque MD 07/14/20711 D: DYLON 07/13/202105 T: DYLON 07/13/202105 CC: Name Value Range Interpretation Code Description Data Marlen rce(s) Supporting Document(s) ID Date Data Source [id number] 07/13/2020 08:24:00 PM [facility] [address] [place] [address] [phone] NAME SEX PT STATUS ACCOUNT NUMBER FALGUNI ALSTON JR [facility] [id number] ORDERING PHYSICIAN LOCATION MEDICAL RECORD NO. Shruti Hernández MD ER [id number] ATTENDING PHYSICIAN DATE OF DATE OF EXAM/TIME Olivia Woods NP 1975 07/13/201932 TYPE / EXAM CT Head without contrast REASON FOR EXAM multiple syncopal episodes with unclear head traum Clinical History/Indication for Exam: multiple syncopal episodes with unclear head traum CT HEAD WITHOUT INTRAVENOUS CONTRAST INDICATION: multiple syncopal episodes with unclear head traum TECHNIQUE: Axial computed tomography images of the head/brain without intravenous contrast. Sagittal and coronal reformatted images were created and reviewed. This CT exam was performed using one or more of the following dose reduction techniques: automated exposure control, adjustment of the mA and/or kV according to patient size, and/or use of iterative reconstruction technique. COMPARIS ON: No relevant prior studies available. FINDINGS: Brain: Unremarkable. No hemorrhage. No significant white matter disease. No edema. Ventricles: Unremarkable. No ventriculomegaly. Bones/joints: Unremarkable. No acute fracture. Soft tissues: Unremarkable. Vasculature: Atherosclerotic disease. Sinuses: Unremarkable as visualized. No acute sinusitis. Mastoid air cells: Unremarkable as visualized. No mastoid effusion. IMPRESSION: No intracranial hemorrhage. No fracture. Automatic exposure control was used as a dose lowering technique. REPORT SIGNATURE ON FILE 07/13/2020 (20:24 Eastern Time ) Signed by: Shruti Brown M.D. Reported By Shruti Brown MD on 07/13/202023 Signed By Shruti Brown MD on 07/13/202023 Date Time CC: Olivia Woods; Shruti Brown MD Techn: PALHE Trans Dt/Tm: Trans by: DT Prt Dt/Tm: 26: Total DLP = 709.00 mGy-cm : Total Radiation Dose = 2.1979 mSv Lifetime Dose: 2.1979 mSv Name Value Range Interpretation Code Description Data Marlen rce(s) Supporting Document(s) ID Date Data Source [id number] 07/13/2020 07:15:00 PM [facility] Oxygen Delivery Method Nasal Cannula7.50 38.1 Name Value Range Interpretation Code Description Data Marlen rce(s) Supporting Document(s) Oxygen [Partial pressure] in Gas 77.3 mm[Hg] 74.0-100.0 N [facility] 96.029.96.4 Carbon dioxide, total [Moles/volume] in Arterial blood 31.1 mmol /L 22.0-30.0 Above high normal [facility] 210.7 Specimen site Narrative LEFT RADIAL ARTERY [facility] @[facility] manual test result: LEFT RADIAL @by Shawna King at 07/13/201914. Blood gas studies (set) Performed [facility] @[facility] manual test result: [email or web address] at 07/13/201914. ID Date Data Source [id number] 07/13/2020 06:57:00 PM [facility] [address] [place] [address] [phone] NAME SEX PT STATUS ACCOUNT NUMBER FALGUNI ALSTON JR [facility] ER [id number] ORDERING PHYSICIAN LOCATION MEDICAL RECORD NO. Shruti Hernández MD ER [id number] ATTENDING PHYSICIAN DATE OF DATE OF EXAM/TIME Olivia Woods NP 1975 07/13/201848 TYPE / EXAM Xray Ribs unilat w/PA CXR- LT REASON FOR EXAM trauma to L chest wall from falls Clinical History/Indication for Exam: trauma to L chest wall from falls RADIOGRAPHS OF THE LEFT RIBS AND AP CHEST 3 OR MORE VIEWS INDICATION: trauma to L chest wall from falls COMPARISON: No relevant prior studies available. FINDINGS: Lungs: Unremarkable. No consolidation. Pleural space: Unremarkable. No pneumothorax. Heart: Unremarkable. No cardiomegaly. Mediastinum: Unremarkable. Bones/joints: No displaced left rib fracture. IMPRESSION: No displaced left rib fracture. REPORT SIGNATURE ON FILE 07/13/2020 (18:57 Eastern Time ) Signed by: Shruti Brown M.D. Reported By Shruti Brown MD on 07/13/201856 Signed By Shruti Brown MD on 07/13/201856 Date Time CC: Olivia Woods; Shruti Brown MD Techn: FROSA Trans Dt/Tm: Trans by: DT Prt Dt/Tm: [id number]: Total DLP = 0.00 mGy-cm Fluoroscopy Time (in secs): Name Value Range Interpretation Code Description Data Marlen rce(s) Supporting Document(s) ID Date Data Source [id number] 07/13/2020 06:56:00 PM [facility] [address] [id number] [phone] NAME SEX PT STATUS ACCOUNT NUMBER FALGUNI ALSTON Rico Barnett [facility] [id number] ORDERING PHYSICIAN LOCATION MEDICAL RECORD NO. Shruti Hernández MD ER [id number] ATTENDING PHYSICIAN DATE OF DATE OF EXAM/TIME Olivia Woods NP 1975 07/13/201848 TYPE / EXAM Xray Chest One View REASON FOR EXAM r/o pneumonia Clinical History/Indication for Exam: r/o pneumonia RADIOGRAPH OF THE CHEST 1 VIEW INDICATION: r/o pneumonia COMPARISON: No relevant prior studies available. FINDINGS: Lungs: Unremarkable. No consolidation. Pleural space: Unremarkable. No pneumothorax. Heart: Unremarkable. No cardiomegaly. Mediastinum: Unremarkable. Bones/joints: Unremarkable. IMPRESSION: No acute cardiopulmonary disease. REPORT SIGNATURE ON FILE 07/13/2020 (18:56 Eastern Time ) Signed by: Shruti Brown M.D. Reported By Shruti Brown MD on 07/13/201855 Signed By Shruti Brown MD on 07/13/201855 Date Time CC: Olivia Woods; Shruti Brown MD Techn: FROSA Trans Dt/Tm: Trans by: DT Prt Dt/Tm: [id number]: Total DLP = 0.00 mGy-cm Fluoroscopy Time (in secs): Name Value Range Interpretation Code Description Data Marlen rce(s) Supporting Document(s) ID Date Data Source [id number] 07/13/2020 06:19:00 PM [facility] ED Physician Documentation NAME: FALGUNI ALSTON JR : 1975 AGE: 45 MR#: [id number] SERVICE DATE: 07/13/[address]: Shruti Hernández MD PRIMARY CARE DR: Olivia Woods NP ROOM#: HPI (Adult, General) General Chief Complaint: Multi system (Adult) Stated Complaint: SYNCOPE Resident LTC, travel outisde home, exposure to hot tubs:: No Time Seen by Provider: 07/13/20 18:11 Source: patient Exam Limitations: no limitations History of Present Illness Narrative: 45 yo man with ETOH abuse, IRDM, recurrent pancreatitis, paroxysmal atrial fibrillation, BIBA due to c/o multiple syncopal episodes since early this morning. He notes vomiting and decreased po intake for the past 3 days. He notes continued ETOH use. He has mild abdominal pain, no fevers or chills. Allergies/Home Meds Allergies Allergy/AdvReac Type Severity Reaction Status Date / Time No Known Drug Allergies Allergy Verified 07/13/20 18:05 Home Medications Medication Instructions Recorded Confirmed Last Taken Type One Daily For Men 1 ea PO DAILY #30 tab 03/31/13 07/13/20 07/12/20 Rx blood- glucose meter #1 ea 03/22/20 07/13/20 07/12/20 Rx aspirin 81 mg tablet,delayed 81 mg PO DAILY #30 tab 05/28/20 07/13/20 07/13/20 Rx release atorvastatin 80 mg tablet 80 mg PO QDAY #30 tab 05/28/20 07/13/20 07/12/20 Rx blood sugar diagnostic #150 box 05/28/20 07/13/20 07/12/20 Rx folic acid 1 mg tablet 1 mg PO DAILY #30 tab 05/28/20 07/13/20 07/13/20 Rx gabapentin 400 mg capsule 600 mg PO TID #120 cap 05/28/20 07/13/20 07/12/20 Rx insulin glargine 100 unit/mL (3 32 unit SQ BID #15 ml MDD 64 units 05/28/20 07/13/20 07/12/20 Rx mL) subcutaneous pen insulin lispro 100 unit/mL 1 sliding scale dose SQ 05/28/20 07/13/20 07/12/20 Rx subcutaneous solution USEASDIRECTD #10 ml MDD 45 units insulin syr/ndl U100 half hiram 0.3 #100 each 05/28/20 07/13/20 07/12/20 Rx mL 31 gauge x 5/16" metoprolol tartrate 100 mg tablet 100 mg PO BID #60 tab 05/28/20 07/13/20 07/13/20 Rx pantoprazole 40 mg tablet,delayed 40 mg PO DAILY #30 tab 05/28/20 07/13/20 07/12/20 Rx release pen needle, diabetic 29 gauge x #100 box 05/28/20 07/13/20 07/12/20 Rx 1/2" thiamine HCl (vitamin B1) 100 mg 100 mg PO DAILY #90 tab 05/28/20 07/13/20 07/13/20 Rx tablet PM H (from Triage) Patient Medical History PMH Reviewed/Updated as Needed: Yes PMH/PSH from Triage: Medical History (Updated 05/30/20 @ 11:21 by Olivia Woods NP) Alcohol abuse (Medical) Chronic pancreatitis (Medical) Diabetes mellitus, type 2 (Medical) Gastroesophageal reflux disease (Medical) History of varicella (Medical) Hypertension (Medical) Recurrent DKA (Medical) Smoker (Medical) Surgical History History of vasectomy (Surgical) Hx Drug Resistant Infections Hx MRSA: (Methicillin-resistant Staphylococcus aureus): No Hx VRE (Vancomycin-resistant enterococci): No Hx C.Diff: No Hx CRKP: No Hx Other Resistant Infection?: No Isolation: Droplet Hx Recent Travel Out of the country within 10 days (where): No Hx Fever: No Hx Fever with a rash?: No Nurse screening for coronavirus: Recent Travel outside the No country (where) Has patient experienced No coronavirus symptoms Social History Are you in a relationship with/Does anyone hit you, yell/swear at you, steal from you?: No Substance Use Hx Alcohol Use: Yes Hx Substance Use: Yes (Alcohol, Quitted) Hx Substance Use Treatment: No Second Hand Smoke Exposure: Yes Smoking Status: Current every day smoker Tobacco Use Tobacco Products:: Cigarettes 1 Pack per day Years smoked:: 10-25 yrs Hx Chewing Tobacco Use: No Vaccination History Hx/Date of Tetanus, Diphtheria Vaccination: Yes Hx/Date of Influenza Vaccination: No Hx/Date of Pneumococcal Vaccination: No Immunizations Up to Date: Yes [facility] Medical History Alcohol abuse Chronic pancreatitis Diabetes mellitus, type 2 Gastroesophageal reflux disease History of varicella Hypertension Recurrent DKA Smoker Surgical History History of vasectomy Family History (Updated 04/05/18 @ 14:20 by Mark Reyes M.D.) Mother No problems noted. Father No problems noted. Sister No problems noted. Son No problems noted. Son No problems noted. Daughter No problems noted. Daughter No problems noted. 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 pets and animals: Yes pets and animals: dog(s) leisure activities: hunting, fishing and other Hx Recent Travel (where): No caffeine: No high-fat food intake: 0-1 times daily daily servings fruits/ve-4 daily servings of milk/calcium: 2-4 eating out: rarely or never reads food labels: usually or always during the past year weight has: remained stable Smoking Status: Current every day smoker quit status: considering quitting alcohol intake: current alcohol intake frequency: 0-2 drinks per day substance use type: does not use special marielle needs: No seatbelt use: always helmet use: Yes drive intox or ride w/ intox line haul truck driver: No water heater temp set < 120 deg: Yes working smoke detector in home: Yes fire extinguisher in home: Yes carbon monox detector in home: Yes firearms in home: Yes firearms unloaded and locked: Yes victim of physical abuse: No victim of emotional abuse: No ROS Review of Systems Constitutional: Reports weakness and malaise; Denies fever Eyes: Denies eye discharge/drng Respiratory: Denies cough and SOB Cardiovascular: Denies chest pain Gastrointestinal: Reports nausea, vomiting and abdominal pain; Denies diarrhea Genitourinary-Male: Denies dysuria Musculoskeletal: Reports muscle pain and joint pain Skin/Breasts: Denies rash Neurologic: Denies weakness, numbness and headache Endocrine: Reports Loss of appetite Hematological/Lymphatic: Reports easy bleeding and easy bruising Allergic/Immunologic: Denies rash Physical Exam General Physical Exam Narrative: thin, chronically ill appearing male, pale, no respiratory distress Limitations: no limitations General appearance: alert and lethargic Head Head exam: Present atraumatic, normocephalic and normal inspection Eye Eye exam: Present normal apperance and EOMI; Absent conjunctival injection ENT ENT exam: Present mucous membranes dry; Absent normal exam and normal orophraynx Neck Neck exam: Present normal inspection and full ROM; Absent tenderness Respiratory Respiratory exam: Present normal lung sounds bilaterally and chest wall tenderness (L sided); Absentrespiratory distress Cardiovascular Cardio vascular Exam: Present normal rhythm and tachycardia GI/Abdominal GI/Abdominal exam: Present Abd soft, bowel sounds present all quadrents and tenderness (epigastric);Absent guarding and rebound Extremities Exam Extremities exam: Present normal inspection and full ROM; Absent tenderness Back Exam Back exam: Present normal inspection and full ROM; Absent tenderness Neurological Exam Neurological exam: Present alert and oriented X3; Absent motor sensory deficit Psychiatric Psychiatric exam: Present normal affect and normal mood Skin Skin exam: Present warm, dry, intact and pallor Vital Signs Vital Signs: Vital Signs 07/13/20 17:39 07/13/20 18:33 Temperature 99.2 F 99.2 F Pulse Rate 144 H Respiratory Rate 18 Blood Pressure 100/70 O2 Sat by Pulse Oximetry 97 MDM (comprehensive) Lab Data Labs: 07/13/20 18:10 07/13/20 18:10 Laboratory Results Last 24 hours 07/13/20 18:10: WBC 21.4 H, RBC 4.99, Hgb 13.3, Hct 39.4 L, MCV 79.0 L, MCH 26.7 L, MCHC 33.8, RDW 16 H, Plt Count 346, MPV 9.8, Immature Gran % (Auto) 1.1, Neut % (Auto) 86.3 H, Lymph % (Auto) 6.2 L, Beauregard % (Auto) 6.3, Eos % (Auto) 0.0, Baso % (Auto) 0.1 L, Lymph # (Auto) 1.3, A bs Immat Gran (auto) 0.2 H, Add Manual Diff Manual diff added, Total Counted 100, Neutrophils (Manual) 85 H, Absolute Neutrophils 18.5 H, Lymphocytes (Manual) 14, Monocytes (Manual) 1 L, Monocytes # 1.3 H, Absolute Eosinophils 0.0, Absolute Basophils 0.0, Platelet Estimate Appears normal, RBC Morphology Appears normal 07/13/20 18:10: PT 11.0, INR 1.0, PTT ([place]) 22.8 07/13/20 18:10: Sodium 121 L, Potassium 3.1 L, Chloride 76 L, Carbon Dioxide 32 H, Anion Gap 16, BUN64 H, Creatinine 1.5 H, GFR Calculation 51, Glucose 300 H, Calcium 8.9, Total Bilirubin 1.0, AST 19,ALT 35, Alkaline Phosphatase 116, Serum Total Protein 7.4, Albumin 3.6 07/13/20 18:10: Lactic Acid 2.5 H 07/13/20 18:10: Amylase 36, Lipase 27 L 07/13/20 19:10: Puncture Site Left radial artery, ABG pH (Temp Correct) 7.50 H, ABG pCO2 (Temp Corrct 38.1, ABG pO2 (Temp Correct 77.3, ABG HCO3 29.9 H, ABG Total CO2 31.1 H, ABG O2 Sat (Measured) 96.0, ABG Base Excess 6.4 H, Tay Test Performed, Arterial/Alveolar Ratio 0.7 L, FiO2 21 Medical Decision Making Free Text/Narative:: The patient was evaluated for multiple syncopal episodes. The PE was significant for an ill appearing man with dehydration and severe tachycardia. EKG showed sinus tachycardia. Labs significant for elevated pH, elevated bicarbonate, low Na, elevated Glu, normal lipase and amylase, low K (repleted), and elevated WBC. The patient seems to have severe gastritis likely related to active ETOH. He has a contraction alkalosis which will be treated with IVF. Elevated WBC likely related to recurrent vomiting but will treat with empiric Ceftriaxone. The patient will be admitted for further therapy. Rib films ordered for rib pain from falls. No fracture. CT head ordered: wnl. Of note, patient had multiple episodes of SVT in ER, documented on monitor with rates up to 220/min. He did receive Cardizem 20 mg slow IVP with improvement in rate and no further episodes of extreme tachycardia. Plan Plan Plan: admit to Medical Service Plan of care: Plan of care discussed with patient and or family, Patient encouraged to ask questionsabout plan and Patient agrees with plan of care Visit Medications Administered ED medications:: Medications Discontinued Medications Generic Name Dose Route Start Last Admin Trade Name Freq PRN Reason Stop Dose Admin Sodium Chloride 1,000 mls @ 999 mls/hr 07/13/20 17:43 07/13/20 18:34 Ns 0.9% IV 07/13/20 18:43 Infused .Q1H1M ONE Infusion Sodium Chloride 1,000 mls @ 999 mls/hr 07/13/20 18:29 07/13/20 20:12 Ns 0.9% IV 07/13/20 19:29 Infused .Q1H1M ONE Infusion Ceftriaxone Sodium/Dextrose 2 gm in 50 mls @ 100 mls/hr 07/13/20 18:49 07/13/20 19:30 Rocephin 2gm (Premix) Piggyback IV 07/13/20 19:18 Infused ONCE ONE Infusion Ketorolac Tromethamine 30 mg 07/13/20 18:21 07/13/20 18:33 Ketorolac Tromethamine 30 Mg/Ml Sdv IVP 07/13/20 18:22 30 mg 1T ONE Administration Pantoprazole Sodium 40 mg 07/13/20 19:33 07/13/20 19:37 Pantoprazole Sodium 40 Mg Sdv IVP 07/13/20 19:34 40 mg 1T ONE Administration Potassium Chloride 40 meq 07/13/20 18:48 07/13/20 18:58 Potassium Chloride 20 Meq Tab.Cr PO 07/13/20 18:49 40 meq 1T ONE Administration Discharge Plan Admission/Discharge Dx Primary (Admit) Diagnosis: Alcoholic gastritis; Dehydration; contraction alkalosis; SVT ED Provider: Shruti Hernández ED Status: Physician Time Seen by Provider: 07/13/20 18:11 Triaged At: 07/13/20 17:39 Condition Condition: Stable Discharge Detail Disposition: Admit to [facility] Med Rec New Prescriptions: No Action aspirin 81 mg tablet,delayed release (DR/EC) 81 mg PO DAILY Qty: 30 RF: 3 atorvastatin 80 mg tablet 80 mg PO QDAY Qty: 30 RF: 3 (DME) GE100 Blood Glucose Test Strip Strip 1 ea miscellaneous QID Qty: 150 RF: 5 folic acid 1 mg tablet 1 mg PO DAILY Qty: 30 RF: 5 gabapentin 400 mg capsule 600 mg PO TID Qty: 120 RF: 2 (DME) BD Insulin Syringe Half Unit 0.3 mL 31 gauge x 5/16" syringe See Rx Instructions .ROUTE .MEDSUPPLY Qty: 100 RF: 4 insulin lispro [Admelog U-100 Insulin lispro] 100 unit/mL solution 1 sliding scale dose SQ USEASDIRECTD MDD 45 units Qty: 10 RF: 2 metoprolol tartrate 100 mg tablet 100 mg PO BID Qty: 60 RF: 2 pantoprazole 40 mg tablet,delayed release (DR/EC) 40 mg PO DAILY Qty: 30 RF: 3 (DME) pen needle, diabetic 29 gauge x 1/2" needle 1 ea miscellaneous TID Qty: 100 RF: 3 thiamine HCl (vitamin B1) 100 mg tablet 100 mg PO DAILY Qty: 90 RF: 0 Basaglar KwikPen U-100 Insulin 100 unit/mL (3 mL) insulin pen 32 unit SQ BID MDD 64 units Qty: 15 RF: 3 One Daily For Men 0.4-600 mg-mcg tablet 1 ea PO DAILY Qty: 30 RF: 5 (DME) blood- glucose meter Misc 1 ea miscellaneous QID Qty: 1 RF: 0 Medications Medication reconciliation performed by provider at discharge: Yes *Discharge Patient* Discharge Orders: Provider hand off (NOW); Ordered 07/13/20 Ordered By: Shruti Hernández Interventions Interventions: ED General Adult Last Done: 07/13/20 17:57 Report Signers: <Electronically signed by Shruti Hernández MD> Shruti Hernández MD 07/13/202024 Shruti Hernández MD SIGNATURE DA Report Cosigners: D: JENISE 07/13/201818 T: JENISE 07/13/201818 CC: Olivia Woods Name Value Range Interpretation Code Description Data Marlen rce(s) Supporting Document(s) ID Date Data Source [id number] 07/13/2020 06:47:00 PM [facility] Special Instructions: Lab may order repe at test if initial test elevatedPhysician If elevated, reflex second test in 4-6 hrs @07/13/201824: MANUAL DIFF added. RFLXG = DIFF. Anticoagulant or Thrombolytic medication : Heparin @07/13/201824: MANUAL DIFF added. RFLXG = DIFF. Name Value Range Interpretation Code Description Data Marlen rce(s) Supporting Document(s) Urea nitrogen [Mass/volume] in Serum or Plasma 64 mg/dL 9-23 Above high normal [facility] Sodium [Moles/volume] in Serum or Plasma 121 mmol/L 132-146 Below low [facility] @Review & document.Repeated by: Varsha Bosch 07/13/201843.Result Confirmation: 121 mmol/L Potassium [Moles/volume] in Serum or Plasma 3.1 mmol/L 3.5-5.5 Below low normal [facility] Chloride [Moles/volume] in Serum or Plasma 76 mmol/L 99-109 Belo w low normal [facility] @Review test & document. []Called to RAFAEL KNOX @ 184 by Varsha Salazar. Resultsread back.Repeated by: Varsha Salazar 07/13/201845.Result Confirmation: 76 mmol/l Carbon dioxide, total [Moles/volume] in Serum or Plasma 32 mmol/ L 20-31 Above high normal [facility] Anion gap in Serum or Plasma 16 mmol/L 8-16 N L [facility] Glucose [Mass/volume] in Serum or Plasma 300 mg/dL 74-106 Above high normal [facility] Creatinine 1.5 mg/dL 0.5-1.1 Above high normal [facility] Glomerular filtration rate/1.73 sq M.pre dicted [Volume Rate/Area] in Serum or Plasma 51 ml/min ABOVE 60 [facility] ital Alanine aminotransferase [Enzymatic acti vity/volume] in Serum or Plasma by With P-5'-P 35 U/L 10-49 N [facility] ital Aspartate aminotransferase [Enzymatic ac tivity/volume] in Serum or Plasma by With P-5'-P 19 U/L 0-33 N [facility] pital Alkaline phosphatase [Enzymatic activity/volume] in Serum or Plasma 116 U/L 45-129 N [facility] Calcium [Mass/volume] in Serum or Plasma 8.9 mg/dL 8.5-10.1 N [facility] Bilirubin.total [Mass/volume] in Serum or Plasma 1.0 mg/dL 0.3-1.2 N [facility] Albumin [Mass/volume] in Serum or Plasma by Bromocresol purple (BCP) dye binding method 3.6 g/dL 3.2-4.8 N [facility] ital Protein [Mass/volume] in Serum or Plasma 7.4 g/dL 5.7-8.2 [facility] ID Date Data Source [id number] 07/13/2020 06:47:00 PM [facility] Special Instructions: Lab may order repe at test if initial test elevatedPhysician If elevated, reflex second test in 4-6 hrs @07/13/20 182: MANUAL DIFF added. RFLXG = DIFF. Anticoagulant or Thrombolytic medication : Heparin @07/13/201824: MANUAL DIFF added. RFLXG = DIFF. Name Value Range Interpretation Code Description Data Marlen rce(s) Supporting Document(s) Lactic w Rfx (if elevated) 2.5 mmol/L 0.5-2.2 Above high normal [facility] Called to EYAL KNOX @ 1847 by Varsha Bosch. Resultsread back. ID Date Data Source [id number] 07/13/2020 06:47:00 PM [facility] Special Instructions: Lab may order repe at test if initial test elevatedPhysician If elevated, reflex second test in 4-6 hrs @07/13/201824: MANUAL DIFF added. RFLXG = DIFF. Anticoagulant or Thrombolytic medication : Heparin @07/13/20 182: MANUAL DIFF added. RFLXG = DIFF. Name Value Range Interpretation Code Description Data Marlen rce(s) Supporting Document(s) Leukocytes [#/volume] in Blood by Automated count 21.4 10*3/uL 4.45-10.71 Above high normal [facility] Erythrocytes [#/volume] in Blood by Automated count 4.99 10*6/uL 4.3- 6.1 N [facility] Hemoglobin [Moles/volume] in Blood 13.3 g/dL 13-18 N [facility] Hematocrit [Volume Fraction] of Blood by Automated count 39.4 % 42-52 Below low normal [facility] Erythrocyte mean corpuscular volume [Ent itic volume] in Cord blood by Automated count 79.0 fL 80-[address] [facility] Erythrocyte mean corpuscular hemoglobin [Entitic mass] by Automated count 26.7 pg 27-31 Below low normal [facility] pital Erythrocyte mean corpuscular hemoglobin concentration [Mass/volume] in Cord blood 33.8 g/dL 33-37 N [facility] ital Erythrocyte distribution width [Entitic volume] by Automated cou nt 16 % 11-15 Above high normal [facility] Platelets [#/volume] in Blood by Automated count 346 10*3/uL 130-472 N [facility] Platelet mean volume [Entitic volume] in Blood 9.8 fL 9.1-13.1 N [facility] Neutrophils/100 leukocytes in Blood by Automated count 86.3 % 41-77 Above high normal [facility] Neutrophils [#/volume] in Blood by Automated count 18.5 U 1.7-7.6 Above high normal [facility] Lymphocytes/100 leukocytes in Blood by Automated count 6.2 % 14-46 Below low normal [facility] Lymphocytes [#/volume] in Blood by Automated count 1.3 U 0.6-4.6 N [facility] Monocytes/100 leukocytes in Blood by Automated count 6.3 % 4-12 N [facility] Monocytes [#/volume] in Blood by Automated count 1.3 U 0.2-1.2 Above high normal [facility] Eosinophils/100 leukocytes in Blood by Automated count 0.0 % 0-7 N [facility] Eosinophils [#/volume] in Blood by Automated count 0.0 U 0.0-0.5 N [facility] Basophils/100 leukocytes in Blood by Automated count 0.1 % 0.4-1.3 Below low normal [facility] Basophils [#/volume] in Blood by Automated count 0.0 U 0.0-0.2 N [facility] NUCLEATED RED BLOOD CELL 0 % [facility] NUCLEATED RED BLOOD CELL# 0 U [facility] Immature granulocytes [Presence] in Blood by Automated count 0-2 N [facility] Immature granulocytes [#/volume] in Blood by Automated count 0.2 U 0-0.1 Above high normal [facility] Manual Differential panel - Blood Manual Diff Added [facility] ID Date Data Source [id number] 07/13/2020 06:48:00 PM [facility] Special Instructions: Lab may order repe at test if initial test elevatedPhysician If elevated, reflex second test in 4-6 hrs @07/13/20 1825: MANUAL DIFF added. RFLXG = DIFF. Anticoagulant or Thrombolytic medication : Heparin @07/13/20 1825: MANUAL DIFF added. RFLXG = DIFF. Name Value Range Interpretation Code Description Data Marlen rce(s) Supporting Document(s) Prothrombin Time (Patient) 11.0 s 9.6-12.3 N [facility] INR 1.0 0.9-1.1 [facility] THE INR IS OPERATIONALLY DEFINED FOR SUSAN SH PLASMA FROMPATIENTS STABILIZED ON ORAL ANTICOAGULANTS.ROUTINE ANTICOAGULANT THERAPY 2.0-3.0RECURRENT SYSTEMIC EMBOLISM/HEART VALVE REPLACEMENT 2.5-3.5 aPTT.lupus sensitive (LA screen) 22.8 s 22.7-31.6 [facility] ID Date Data Source [id number] 07/18/2020 06:15:00 PM [facility] Special Instructions: Lab may order repe at test if initial test elevatedPhysician If elevated, reflex second test in 4-6 hrs @07/13/20 1825: MANUAL DIFF added. RFLXG = DIFF. Anticoagulant or Thrombolytic medication : Heparin @07/13/20 182: MANUAL DIFF added. RFLXG = DIFF. Name Value Range Interpretation Code Description Data Marlen rce(s) Supporting Document(s) Bacteria identified in Blood by Culture [facility] NO GROWTH AFTER 5 DAYS ID Date Data Source [id number] 07/13/2020 06:47:00 PM [facility] Special Instructions: Lab may order repe at test if initial test elevatedPhysician If elevated, reflex second test in 4-6 hrs @07/13/201824: MANUAL DIFF added. RFLXG = DIFF. Anticoagulant or Thrombolytic medication : Heparin @07/13/201824: MANUAL DIFF added. RFLXG = DIFF. Name Value Range Interpretation Code Description Data Marlen rce(s) Supporting Document(s) Cells counted [#] 100 [facility] Neutrophils [#/volume] in Blood by Manual count 85 % 41-77 Above high normal [facility] Lymphocytes [#/volume] in Blood by Manual count 14 % 14-46 N [facility] Monocytes [#/volume] in Blood by Manual count 1 % 4-12 B elow low normal [facility] Platelets [#/volume] in Blood by Estimate APPEARS NORMAL NORMAL [facility] Morphology [Interpretation] in Blood Narrative APPEARS NORMAL NORMAL [facility] ID Date Data Source [id number] 07/13/2020 09:45:00 PM [facility] Name Value Range Interpretation Code Description Data Marlen rce(s) Supporting Document(s) Magnesium [Mass/volume] in Serum or Plasma 2.9 mg/dL 1.3-2.7 Above high normal [facility] ID Date Data Source [id number] 07/13/2020 09:46:00 PM [facility] Name Value Range Interpretation Code Description Data Marlen rce(s) Supporting Document(s) Hemoglobin A1c % 10.3 % 4.0-6.0 Above high normal L [facility] The following ranges may be u sed for interpretation of results: HGBA1C degree of glucose control: Greater than 8%: Action Suggested * Less than 7%: Goal of Diabetic Therapy Less than 6%: NormalFactors such as duration of diabetes, adherence to therapyand the age of the patient should also be considered inassessing the degree of blood glucose control.* High risk of developing senior living complications such asretinopathy, nephropathy, neuropathy, cardiopathy, etc. Some danger of hypoglycemic reaction in Type I diabetics.Some glucose intolerant individuals and "Sub Clinical"diabetics may demonstrate HGBA1C levels in this area. Glucose mean value [Moles/volume] in Blood Estimated f rom glycated hemoglobin 249 mg[facility] An A1C of 7% - the goal of diabetic ther apy - is equivalentto an EAG of 154 mg/dl. ID Date Data Source [id number] 07/13/2020 06:48:00 PM EST [facility] Name Value Range Interpretation Code Description Data Marlen rce(s) Supporting Document(s) Amylase [Enzymatic activity/volume] in Serum or Plasma 36 U/L 30- 118 N [facility] ID Date Data Source [id number] 07/13/2020 06:48:00 PM [facility] Name Value Range Interpretation Code Description Data Marlen rce(s) Supporting Document(s) Lipase [Enzymatic activity/volume] in Serum or Plasma 27 U/L 73-393 Below low normal [facility] ID Date Data Source [id number] 07/13/2020 12:00:00 AM [facility] Name Value Range Interpretation Code Description Data Marlen rce(s) Supporting Document(s) SARS-CoV2 Rapid PCR [facility] This lab was ordered by [facility] and reported by [facility]. ID Date Data Source [id number] 05/30/2020 10:22:00 AM EDT [facility] [address] [place] [id number] [phone] NAME SEX PT STATUS ACCOUNT NUMBER FALGUNI ALSTON JR [facility] REF [id number] ORDERING PHYSICIAN LOCATION MEDICAL RECORD NO. Olivia Woods [id number] ATTENDING PHYSICIAN DATE OF DATE OF EXAM/TIME Olivia Woods NP 1975 05/30/20932 TYPE / EXAM US Abd single organ/quadrant REASON FOR EXAM Pancreatic tumor COMPARISON: None TECHNIQUE: Real-time sonography of the abdomen is performed. FINDINGS: GALLBLADDER: The gallbladder is physiologically collapsed, and it demonstrates a slightly thickenedwall at 3.2 mm. No cholelithiasis is seen, [...] Trans Dt/Tm: Trans by: DT Prt Dt/Tm: 8: Total DLP = 0.00 mGy-cm : Total Radiation Dose = 0.0000 mSv Lifetime Dose: 0 mSv Name Value Range Interpretation Code Description Data Marlen rce(s) Supporting Document(s) ID Date Data Source [id number] 05/28/2020 03:23:00 PM EDT [facility] Name Value Range Interpretation Code Description Data Marlen rce(s) Supporting Document(s) Urea nitrogen [Mass/volume] in Serum or Plasma 19 mg/dL 9-23 N [facility] Sodium [Moles/volume] in Serum or Plasma 134 mmol/L 132-146 N [facility] Potassium [Moles/volume] in Serum or Plasma 4.2 mmol/L 3.5-5.5 N [facility] Chloride [Moles/volume] in Serum or Plasma 103 mmol/L 99-109 N [facility] Carbon dioxide, total [Moles/volume] in Serum or Plasma 25 mmol/L 20 -31 N [facility] Anion gap in Serum or Plasma 10 mmol/L 8-16 N [facility] Glucose [Mass/volume] in Serum or Plasma 238 mg/dL 74-106 Above high normal [facility] Creatinine 0.9 mg/dL 0.5-1.1 [facility] Glomerular filtration rate/1.73 sq M.pre dicted [Volume Rate/Area] in Serum or Plasma Greater Than 60 ABOVE 60 [facility] Alanine aminotransferase [Enzymatic acti vity/volume] in Serum or Plasma by With P-5'-P 43 U/L 10-49 N [facility] ital Aspartate aminotransferase [Enzymatic ac tivity/volume] in Serum or Plasma by With P-5'-P 14 U/L 0-33 N [facility] pital Alkaline phosphatase [Enzymatic activity/volume] in Serum or Plasma 106 U/L 45-129 N [facility] Calcium [Mass/volume] in Serum or Plasma 9.4 mg/dL 8.5-10.1 [facility] Bilirubin.total [Mass/volume] in Serum or Plasma 0.3 mg/dL 0.3-1.2 [facility] Albumin [Mass/volume] in Serum or Plasma by Bromocresol purple (BCP) dye binding method 3.7 g/dL 3.2-4.8 [facility] ital Protein [Mass/volume] in Serum or Plasma 7.2 g/dL 5.7-8.2 [facility] ID Date Data Source [id number] 06/04/2020 07:52:00 AM EDT [facility] Name Value Range Interpretation Code Description Data Marlen rce(s) Supporting Document(s) MEDMATCH See scanned report [facility] ID Date Data Source [id number] 05/28/2020 03:23:00 PM EDT [facility] Name Value Range Interpretation Code Description Data Marlen rce(s) Supporting Document(s) Magnesium [Mass/volume] in Serum or Plasma 2.3 mg/dL 1.3-2.7 [facility] ID Date Data Source [id number] [facility] Interpretation Code Description Data Marlen rce(s) Supporting Document(s) Parathyrin.intact [Mass/volume] in Serum or Plasma 20 pg/mL 14-64 [facility] Interpretive Guide Intact PTH Calcium -------Normal Parathyroid Normal NormalHypoparathyroidism Low or Low Normal LowHyperparathyroidism Primary Normal or High High Secondary High Normal or Low Tertiary High HighNon- Parathyroid Hypercalcemia Low or Low Normal HighTHIS TEST WAS PERFORMED AT:[facility]![address] [id number] MERATI,MD ID Date Data Source [id number] 05/28/2020 03:23:00 PM EDT [facility] Name Value Range Interpretation Code Description Data Marlen rce(s) Supporting Document(s) Thyrotropin [Units/volume] in Serum or Plasma by Detec tion limit <= 0.005 mIU/L 1.29 u[iU]/mL 0.35-5.50 [facility] ID Date Data Source [id number] 05/28/2020 01:03:00 PM EDT [facility] Patient Name: FALGUNI ALSTON JR : 1975 Sex: M Pt Unit #: [id number] [facility] Provider: Visit Date/Time: 05/28/20 Primary Insurance: [facility] Secondary Insurance: Self Pay ADDENDUM Pt seen and examined by this practitioner in conjunction with student. Documentation reviewed and entered in accordance with exam. Orders and referrals placed by practitioner. Coding done by practitioner. <Electronically signed by Olivia Woods FIBER DESIGNER> 07/01/20 1347 Intake Vital Signs 05/28/20 13:04 Current Height 5 ft 7 in Current Weight 163 lb 6 oz Weight Veronica surement Method Standing Scale BMI 25.5 BP 112/60 Blood Pressure Location Lt brachial Position Sitting Respiration 18 Pulse 60 Pulse Strength Normal Pulse Source Pulse Oximeter Temp 97.9 F Temp Source Temporal Artery Scan Pulse Oximetry (%) 96 Oxygen Delivery Method room air Intake Visit Reasons: Diabetes Nurse Note: 45 year old male presents today for a diabetes follow up visit. Patient is checking BS QID and notes BS fluctuates all over. Patient did not bring a copy with him. Patient was seen by endocrine Dr. Maurer on May 22 and he was placed Farxiga and he has not started yet they are going to call him once insurance approves. Patient notes she also checked his feet. We are waiting for notes we did receive a fax today that she saw him. Patient needs a diabetic retinal screening done. Patient had us scheduled the last visit and this was discontinued as patient was non compliant in getting done and had been scheduled several times. Patients last labs were 02/21/20 here. Patient notes his A1C was [address] Maurer appointmnet on 05/22/20. Patient declined a dietary referral last visit. Patient notes his feet are killing him and that Gabapentin helps but he still feels pins and needleswhen he walks. Bad Credit Collector Required: No Accompanied by: Self / Same as Patient Is patient in pain?: Yes (Bilateral foot pain) Pain scale (1-10): 3 Allergies No Known Drug Allergies Allergy (Verified 10/03/19 14:25) Medications aspirin 81 mg PO DAILY atorvastatin 80 mg PO QDAY blood sugar diagnostic (GE100 Blood Glucose Test Strip) test blood sugar four times daily: fasting and pre-parandial blood-glucose meter [employer] E11.65 bid testing folic acid 1 mg PO DAILY gabapentin 600 mg (1.5 x 400 mg) PO TID insulin glargine (Basaglar KwikPen U-100 Insulin) 32 units (0.32 mL) subcut BID MDD 64 units insulin lispro (Admelog U-100 Insulin lispro) 1 sliding scale dose subcut USEASDIRECTD MDD 45 units insulin syr/ndl U100 half hiram (BD Insulin Syringe Half Unit Ultra-Fine) one syring per dose, as directed metoprolol tartrate 100 mg PO BID multivit with [id number] 0.4-600 mg-mcg (One Daily For Men) 1 ea PO DAILY pantoprazole 40 mg PO DAILY pen needle, diabetic use one needle four times daily with insulin injection thiamine HCl (vitamin B1) 100 mg PO DAILY Vision Wearing glasses?: No Fall Risk History of falls: No Ambulatory Aid:: None Gait/Transferring:: Normal Medications:: Antihypertensives HIV Testing Offer - ages 13-64 HIV testing Offer: Yes Requirement for HIV testing offer been met?: Declines today. Pretest education received and acknowledged SBIRT Annual Questionnaire Are you currently in recovery for alcohol or substance use?: Yes How many times in the past year have you had 5 or more drinks in a day?: 1 or more How many times in the past year have you used a recreational drug or used a prescription medication for nonmedical reasons?: None Do you need a note to return Do you need a note to return to daycare/school/sports/work: No Coronavirus Screening Screening Have you traveled outside of [facility] or [facility] in the last 14 days.: No Has patient experienced coronavirus symptoms: No [facility] Medical History (Updated 05/29/20 @ 05:47 by Olivia Woods NP) Alcohol abuse Chronic pancreatitis Diabetes mellitus, type 2 Gastroesophageal reflux disease History of varicella Hypertension Recurrent DKA Smoker Surgical History History of vasectomy Family History (Updated 04/05/18 @ 14:20 by Mark Reyes M.D.) Mother No problems noted. Father No problems noted. Sister No problems noted. Son No problems noted. Son No problems noted. Daughter No problems noted. Daughter No problems noted. 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 pets and animals: Yes pets and animals: dog(s) leisure activities: hunting, fishing and other Hx Recent Travel (where): No caffeine: No high-fat food intake: 0-1 times daily daily servings fruits/ve-4 daily servings of milk/calcium: 2-4 eating out: rarely or never reads food labels: usually or always during the past year weight has: remained stable Smoking Status: Current every day smoker quit status: considering quitting alcohol intake: current alcohol intake frequency: 0-2 drinks per day substance use type: does not use special marielle needs: No seatbelt use: always helmet use: Yes drive intox or ride w/ intox line haul truck driver: No water heater temp set < 120 deg: Yes working smoke detector in home: Yes fire extinguisher in home : Yes carbon monox detector in home: Yes firearms in home: Yes firearms unloaded and locked: Yes victim of physical abuse: No victim of emotional abuse: No HPI Additional HPI HPI Details: Pt. seen today for f/u for diabetes. He reports foot pain feels like stabbing pins and needles still bad but improved with current Gabapentin dose. He reports pain is constant throughoutthe day sometimes worse in one foot than the other. He also reports some cramping and locking of fingers, "going sideways" at times when he is working on the car, smoking or not doing anything. Hesays he has had this problem for over [address] Maurer on 05/22 and will start Farxiga once it is approved by his insurance. He states he had a foot exam at that appointment. He agrees to have retinal exam done today. Adult Diabetic 45 yr old male patient who is known to be non-compliant diabetic. Reports today for diabetic followup. He reports that he has been compliant with meds and diet, however, his last A1C was 10.0 Type: insulin-requiring Glucose control symptoms: Reports high fasting glucose, high post-meal glucose, polydipsia, polyuriaand nocturia Weight and fatigue symptoms: Reports weight gain; Denies weight loss, daytime sleepiness or snoring Cardiopulmonary symptoms: Denies chest pain with activity, chest pain at rest, dyspnea, dyspnea on exertion, claudication, myalgias, lightheadedness or dizziness GI symptoms: Denies vomiting, diarrhea or constipation Skin and extremity symptoms: Denies claudication Other symptoms: Reports blurry vision (he reports has been an ongoing issue); Denies change in vision or depression Self monitoring: Yes (reports varrying results, but did not bring list) Percentage of fasting blood glucose within goal: <25% of the time Dietary compliance: Diabetes: poor Has patient/family had Diabetes education in past year: Yes Glucose testing: understands testing schedule Sick day education - understands ketone testing: Yes ID bracelet: information given Risk factor: 1. Do you have diabetes?: yes, 2. Do you have (or have you ever had) any of the following: CHD, CAD, heart attack, noncoronary atherosclerosis, abdominal aneurysm, peripheral artery disease, carotid artery stenosis?: no, 3. Do you have a close male relative who had cardiovascular disease (such as a heart attack) before the age of 50 or a female relative who had itbefore age 60?: no, 4. Do you use tobacco in any form (cigarettes, e-cigarettes, cigars, etc.)?: yes, 5. Do you have hypertension (high blood pressure)?: yes and 6. 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 History of retinopathy: No Date of last dilated eye exam: 05/28/20 History of neuropathy: Yes Date of last foot exam: 05/28/20 Neuropathy details: Reports on medications for pain; Denies loss of protective sensation, history offoot ulcers, history of amputations, autonomic neuropathy, gastroparesis and followed by business support assistant At risk counseled: Yes Dentures: No Visual/sensory: abnormal Review of Systems Const Reports as per HPI, Reports system reviewed and no additional complaints, except as documented, Denies body aches, Denies chills, Denies daytime sleepiness, Denies difficulty sleeping, Denies fatigue, Denies fever(s), Denies frequent falls, Denies headache(s), Denies lethargy, Denies poor appetite, Denies snoring, Reports weight gain and Denies weight loss Eyes Reports as per HPI, Reports system reviewed and no additional complaints, except as documented, Reports blurry vision (he reports has been an ongoing issue), Denies exophthalmos, Denies change in vision, Denies itchy eyes, Denies loss of peripheral vision, Denies loss of vision, Denies other visual disturbances, Denies eye pain and Denies photophobia ENT Reports system reviewed and no additional complaints, except as documented, Reports as per HPI, Denies change in voice, Denies dysphagia, Denies vertigo, Denies dizziness, Denies otalgia, Denies facial pain, Denies headache(s), Denies lip swelling, Denies nasal discharge, Denies neck pain, Denies nose pain, Denies odynophagia, Denies tinnitus, Denies sinus pain, Denies throat swelling andDenies tongue swelling Card Reports as per HPI, Reports system reviewed and no additional complaints, except as documented, Denies chest pain, Denies chest pain at rest, Denies chest pain with activity, Denies diaphoresis, Denies syncope, Denies edema, Denies irregular heart rhythm, Denies claudication, Denies leg ulcers,Denies leg edema, Denies lightheadedness, Denies palpitations, Denies dyspnea and Denies dyspnea on exertion Resp Reports as per HPI, Reports system reviewed and no additional complaints, except as documented, Denies cough, Denies dyspnea, Denies dyspnea on exertion and Denies snoring GI Reports as per HPI, Reports system reviewed and no additional complaints, except as documented, Denies abdominal pain, Denies melena, Denies change in bowel habits, Denies coffee ground emesis, Denies constipation, Denies dysphagia, Denies heartburn, Denies diarrhea, Denies loose stools, Denies odynophagia and Denies vomiting Reports system reviewed and no additional complaints, except as documented, Reports as per HPI, Denies hematuria, Denies difficulty with ejaculations, Denies genital pain, Denies dysuria, Denies flank pain, Reports nocturia, Denies penile discharge, Denies scrotal swelling, Denies urinary frequency, Denies urinary hesitancy, Denies urinary incontinence and Denies urinary urgency Musc Reports system reviewed and no additional complaints, except as documented, Reports as per HPI, Denies back pain, Denies myalgias, Denies arthralgias, Denies joint swelling, Denies muscle cramps, Denies muscle weakness and Denies neck pain Skin/Breast Reports system reviewed and no additional complaints, except as documented, Reports as per HPI, Denies change in hair, Denies dry skin, Denies hirsutism, Denies nail changes, Denies new lesions, Denies erythema, Denies photosensitivity, Denies rash, Denies skin pain, Denies skin swelling, Denies unusual bruising and Denies wounds Neuro Reports system reviewed and no additional complaints, except as documented, Reports as per HPI, Denies abnormal movements, Denies abnormal speech, Denies behavioral changes, Denies confusion, Denies vertigo, Denies dizziness, Denies syncope, Denies frequent falls, Denies headache(s), Denies localized weakness, Denies loss of vision, Denies other visual disturbances, Denies seizure-like activity and Denies paresthesias Psych Reports system reviewed and no additional complaints, except as documented, Reports as per HPI, Denies anxiety, Denies behavioral changes, Denies confusion, Denies depression, Denies irritability,Denies mood swings, Denies hallucinations, Denies homicidal ideation and Denies suicidal ideation Endo Reports system reviewed and no additional complaints, except as documented, Reports as per HPI, Denies fatigue, Denies increase in ring/shoe/hat size, Reports polydipsia, Reports polyuria and Denies palpitations Roderick/Lymph Reports system reviewed and no additional complaints, except as documented, Reports as per HPI, Denies easy bruising and Denies lymphadenopathy Aller/Immun Denies itchy eyes, Denies lip swelling, Denies throat swelling and Denies tongue swelling Exam Const General: cooperative, healthy appearing, comfortable and no acute distress Nutritional Appearance: average body habitus Orientation: alert, awake and oriented x3 HENMT Head: normal to inspection, normocephalic and atraumatic Ears: hearing grossly normal bilaterally, external ears normal, TM's normal bilaterally and EAC's normal General nose exam: external nose normal, nares normal and nasal mucous membranes and turbinates normal Face and sinus: normal facial exam and face symmetric Mouth: oral mucos ae normal, lip normal, tongue normal and moist mucous membranes Teeth and gingiva: no dentures Throat: posterior oropharynx normal and uvula midline Eyes General: appearance normal, both eyes and all related structures Visual Weldon: normal visual weldon by confrontation Alignment and Position: alignment normal and position normal Periorbital: periorbital findings normal Eyelids: eyelids normal Conjunctivae: conjunctivae normal Sclera: sclerae normal Pupils: PERRL and normal by confrontation Neck Neck: normal visual inspection, full ROM, no lymphadenopathy, trachea midline and supple Neck mass: No Chest Chest: normal palpation of entire chest wall Resp Effort Inspection: normal respiratory effort, able to speak in complete sentences, no audible wheezes and no cough Auscultation: clear to auscultation bilaterally Cardio Palpation: normal PMI Rate: regular rate Rhythm: regular rhythm Heart Sounds: S1 normal and S2 normal GI Inspection: Yes normal to inspection, No edema, No large pannus and No obesity Palpation: soft and hepatomegaly Auscultation: normal bowel sounds General: deferred Musc Cervical Spine: cervical ROM normal Thoracic/Lumbar Spine: thoraco-lumbar ROM normal Skin Lesions: no lesions Rashes: no rashes Trauma: no lacerations or abrasions Wounds: no wounds Hair: normal Nails: normal Neuro General: patient alert, patient awake and patient oriented x3 Cranial Nerves: CN's II-XII intact bilaterally, PERRL, accommodation reflex normal, EOM intact bilaterally, no nystagmus, facial strength normal, tongue midline, hearing normal, able to rotate head bilaterally and able to elevate shoulders bilaterally Extrem General: normal to inspection, full ROM and capillary refill normal Psych Appearance: grossly normal and well kempt Mental Status: mental status grossly normal Speech and Movement: speech and movement normal Affect: normal affect Attitude: cooperative Thought Process: normal Thought Content: normal Insight: insight good Judgment: judgment good Assessment Plan Assessment Plan (1) Diabetic neuropathy, type II diabetes mellitus: Status: Acute Code(s): E11.40 - Type 2 diabetes mellitus with diabetic neuropathy, unspecified SNOMED Code(s): 023575391880952 Category: Medical Qualifiers: Diabetes mellitus senior living insulin use: with senior living use Qualified Code(s): E11.40 - Type 2 diabetes mellitus with diabetic neuropathy, unspecified; Z79.4 - shelter (current) use of insulin Plan - Koki Pierre: Continue to follow with endocrinology. Retinal exam. Refuses heel buffer referral. Gabapentin does increased for diabetic neuropathy to feet. Labs as ordered to investigate hand cramps. [place] - Olivia Woods NP: Pt unsure of type of insulin. Reports that he did not have insulin dose adjusted by endocrine, but has not started farxiga Will repeat renal function. Orders: Orders: CMP 05/28/20 PTH - Parathyroid Horm Intact 05/28/20 MAGNESIUM 05/28/20 Referrals: Retinal Imaging - Referral (2) Benign pancreatic tumor: Status: Acute Code(s): D13.6 - Benign neoplasm of pancreas SNOMED Code(s): 17311606 Category: Medical Plan - Koki Johnsonon: U/S reordered Plan - Olivia Woods NP: PT is asking for US. Will re-order to assess status of benign tumor Orders: Orders: US Abd single organ/quadrant 2 Days (3) Finger dysfunction: Status: Acute Code(s): R29.898 - Other symptoms and signs involving the musculoskeletal system SNOMED Code(s): 774636487 Category: Medical Plan - Olivia Woods NP: Pt reports that fingers twist and cramp. States that they are often contorted. Denies known trigger and reports that this is painful. Will check lytes, thyroid, and parathyroid. no change inpms or function noted Orders: Orders: CMP 05/28/20 TSH w/ reflex to Free T4 05/28/20 PTH - Parathyroid Horm Intact 05/28/20 MAGNESIUM 05/28/20 (4) Liver failure: Status: Acute Code(s): K72.90 - Hepatic failure, unspecified without coma SNOMED Code(s): 54537189 Category: Medical Qualifiers: Liver failure chronicity: unspecified chronicity Hepatic coma status: without hepatic coma Qualified Code(s): K72.90 - Hepatic failure, unspecified without coma Plan - Koki Pierre: U/S reordered. Pt. agrees to go. Plan - Olivia Woods NP: pt has history of ducumented liver failure. will re-check liver enzymes and will re-order us as per pt requests Orders: Orders: CMP 05/28/20 PTH - Parathyroid Horm Intact 05/28/20 MAGNESIUM 05/28/20 [facility] Pnl + Confirm 05/28/20 (5) Essential hypertension: Status: Acute Code(s): I10 - Essential (primary) hypertension SNOMED Code(s): 38660876 Category: Medical Plan - Olivia Woods NP: bp is at goal. will continue lisinoprial as patient reports that he is tolerating without side effects. Orders: Orders: CMP 05/28/20 PTH - Parathyroid Horm Intact 05/28/20 MAGNESIUM 05/28/20 (6) ETOH abuse: Status: Acute Code(s): F10.10 - Alcohol abuse, uncomplicated SNOMED Code(s): 96169915 Category: Social Hx Plan - Olivia Woods NP: history of etoh abuse. will get medmatch today Orders: Orders: [facility] Pnl + Confirm 09/21/20 (7) Substance abuse: Status: Acute Code(s): F19.10 - Other psychoactive substance abuse, uncomplicated SNOMED Code(s): 40773681 Category: Medical Plan - Olivia Woods NP: History of this. will get medmatch Orders: Orders: [facility] Pnl + Confirm 05/28/20 (8) Tobacco use disorder, continuous: Status: Acute Onset Date: 11/28/14 Code(s): F17.209 - Nicotine dependence, unspecified, with unspecified nicotine-induced disorders SNOMED Code(s): 983227549 Category: Medical Plan - Olivia Woods NP: continues to be daily smoker. patient denies need for low dose ct at this time Orders: Referrals: Retinal Imaging - Referral (9) Diabetes mellitus type 2, uncontrolled: Status: Acute Code(s): E11.65 - Type 2 diabetes mellitus with hyperglycemia SNOMED Code(s): 671749056 Category: Medical Qualifiers: Glycemic state: with hyperglycemia Qualified Code(s): E11.65 - Type 2 diabetes mellitus with hyperglycemia Plan - Olivia Woods NP: remains uncontrolled. will send back toDr. Maurer as per request Additional Comments Additional Comments: Pt. seen, examined and treatment plan in conjunction with Olivia Woods NP. Orders Other Medications: New: insulin glargine (Basaglar KwikPen U-100 Insulin) 32 units (0.32 mL) subcut BID 15 mL 3RF MDD 64 units Changed: From: aspirin (Aspir-) 81 mg PO DAILY 30 tabs 3RF To: aspirin 81 mg PO DAILY 30 tabs 3RF From: gabapentin 400 mg PO TID 90 caps 2RF To: gabapentin 600 mg (1.5 x 400 mg) PO TID 120 caps 2RF Refilled: atorvastatin 80 mg PO QDAY 30 tabs 3RF blood sugar diagnostic (GE100 Blood Glucose Test Strip) test blood sugar four times daily: fasting and pre- parandial 150 Box 5RF E10.9 folic acid 1 mg PO DAILY 30 tabs 5RF insulin syr/ndl U100 half hiram (BD Insulin Syringe Half Unit Ultra-Fine) one syring per dose, as directed 100 ea 4RF IDDM insulin lispro (Admelog U- 100 Insulin lispro) Sliding scale pre-parandial 1 sliding scale dose subcut USEASDIRECTD 10 mL 2RF MDD 45 units metoprolol tartrate 100 mg PO BID 60 tabs 2RF pantoprazole 40 mg PO DAILY 30 tabs 3RF pen needle, diabetic use one needle four times daily with insulin injection 100 Box 3RF E 10.9 thiamine HCl (vitamin B1) 100 mg PO DAILY 90 tabs 0RF <Electronically signed by Olivia Woods FIBER DESIGNER> 05/29/20 0549 <Electronically signed by Koki Pierre > 05/28/20 1514 Name Value Range Interpretation Code Description Data Marlen rce(s) Supporting Document(s) ID Date Data Source [id number] 05/24/2020 08:39:00 AM EDT [facility] ([facility]) Name Value Range Interpretation Code Description Data Marlen rce(s) Supporting Document(s) Glucose [Mass/volume] in Serum or Plasma 337 [facility] ([facility]) Hemoglobin A1c/Hemoglobin.total in Blood 10.2 [facility] ([facility]) ID Date Data Source [id number] 03/06/2020 12:51:00 PM EDT [facility] Patient Name: FALGUNI ALSTON JR : 1975 Sex: M Pt Unit #: [id number] [facility] Provider: Visit Date/Time: 03/06/20 Primary Insurance: [facility] Secondary Insurance: Self Pay Intake Vital Signs 03/06/20 14:00 Current Height 5 ft 7 in Current Weight 164 lb 4 oz Weight Measurement Method Standing Scale BMI 25.7 BP 110/70 Blood Pressure Location Rt brachial Position Sitting Respiration 18 Pulse 81 Pulse Strength Normal Pulse Source Pulse Oximeter Temp 98.9 F Temp Source Oral Pulse Oximetry (%) 97 Oxygen Delivery Method room air Intake Visit Reasons: Diabetes Nurse Note: 44 year old male presents today for a diabetes follow up visit. Patients last labs were 02/21/20. AIC 9.5. Patient is due for a diabe tic eye examination. Patient had EKG today. Patient notes that he has had insatiable appetite and his weight last visit was 144# and patient notes that he had been weighing 147# on his scales, and today 164.4#. Patient notes he eats 3 meals a day and snacks. Patient is not taking Ramipril he notes Dr. Amy stopped in past. Patient is requesting Gabapentin 600mg daily as he used to take for neuropathy in his feet and for sleep. Bad Credit Collector Required: No Accompanied by: Self / Same as Patient Is patient in pain?: Yes (Bilateral Feet) Pain scale (1-10): 4 Allergies No Known Drug Allergies Allergy (Verified 10/03/19 14:25) Medications aspirin (Aspir-) 81 mg PO DAILY atorvastatin 80 mg PO QDAY blood sugar diagnostic (GE100 Blood Glucose Test Strip) test blood sugar four times daily: fasting and pre-parandial blood-glucose meter Prodigy Brand folic acid 1 mg PO DAILY gabapentin 400 mg PO TID insulin glargine (Basaglar KwikPen U-100 Insulin) 35 units (0.35 mL) subcut QAM insulin glargine (Basaglar KwikPen U-100 Insulin) 45 units (0.45 mL) subcut QPM insulin lispro (Admelog U-100 Insulin lispro) 1 sliding scale dose subcut USEASDIRECTD MDD 45 units insulin syr/ndl U100 half hiram (BD Insulin Syringe Half Unit Ultra-Fine) one syring per dose, as directed metoprolol tartrate 100 mg PO BID multivit with [id number] 0.4-600 mg-mcg (One Daily For Men) 1 ea PO DAILY pantoprazole 40 mg PO DAILY pen needle, diabetic use one needle four times daily with insulin injection thiamine HCl (vitamin B1) 100 mg PO DAILY Fall Risk History of falls: No Ambulatory Aid:: None Gait/Transferring:: Normal Medications:: No High Risk Medications HIV Testing Offer - ages 13-64 HIV testing Offer: Yes Requirement for HIV testing offer been met?: Declines today. Pretest education received and acknowledged SBIRT Annual Questionnaire Are you currently in recovery for alcohol or substance use?: Yes How many times in the past year have you had 5 or more drinks in a day?: 1 or more How many times in the past year have you used a recreational drug or used a prescription medication for nonmedical reasons?: None Do you need a note to return Do you need a note to return to daycare/school/sports/work: No Coronavirus Screening Screening Have you traveled outside of [facility] or [facility] in the last 14 days.: No Has patient experienced coronavirus symptoms: No [facility] Medical History (Updated 03/08/20 @ 07:35 by Olivia Woods NP) Alcohol abuse Chronic pancreatitis Diabetes mellitus, type 2 Gastroesophageal reflux disease History of varicella Hypertension Recurrent DKA Smoker Surgical History History of vasectomy Family History (Updated 04/05/18 @ 14:20 by Mark Reyes M.D.) Mother No problems noted. Father No problems noted. Sister No problems noted. Son No problems noted. Son No problems noted. Daughter No problems noted. Daughter No problems noted. 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 pets and animals: Yes pets and animals: dog(s) leisure activities: hunting, fishing and other Hx Recent Travel (where): No caffeine: No high-fat food intake: 0-1 times daily daily servings fruits/ve-4 daily servings of milk/calcium: 2-4 eating out: rarely or never reads food labels: usually or always during the past year weight has: remained stable quit status: considering quitting alcohol intake: current alcohol intake freq uency: 0-2 drinks per day substance use type: does not use special marielle needs: No seatbelt use: always helmet use: Yes drive intox or ride w/ intox line haul truck driver: No water heater temp set < 120 deg: Yes working smoke detector in home: Yes fire extinguisher in home: Yes carbon monox detector in home: Yes firearms in home: Yes firearms unloaded and locked: Yes victim of physical abuse: No victim of emotional abuse: No HPI Adult Diabetic 44-year-old male patient presents to the clinic today for diabetic follow-up. Patient feels like heis doing well. Verbalizes that he has "his blood sugar under control". Discussed with patient thathis last A1c was over 9. Advised him that his blood sugar is not under control. Patient verbalizes no other complaints at this time. Type: type 2 and insulin-requiring Glucose control symptoms: Reports high post-meal glucose, polydipsia, polyuria, nocturia and nocturnal hypoglycemia Weight and fatigue symptoms: Reports weight gain; Denies weight loss, daytime sleepiness or snoring Cardiopulmonary symptoms: Denies chest pain with activity, chest pain at rest, dyspnea, dyspnea on exertion, dyspnea at rest, claudication, myalgias, postural hypotension, lightheadedness or dizziness GI symptoms: Reports increased hunger; Denies vomiting, diarrhea or constipation Skin and extremity symptoms: Reports tingling/numbness/burning; Denies poorly healing wound, recurrent infections or claudication Other symptoms: Denies blurry vision, change in vision, recurrent infections or depression Pertinent visit history: Denies recent visit to ER, recent hospital admission, recent DKA and [id number] calls Self monitoring: Yes Percentage of fasting blood glucose within goal: <25% of the time Dietary compliance: Diabetes: poor Has patient/family had Diabetes education in past year: No Glucose testing: understands testing schedule Sick day education - understands ketone testing: Yes ID bracelet: has a bracelet Risk factor: 1. Do you have diabetes?: yes, 2. Do you have (or have you ever had) any of the following: CHD, CAD, heart attack, noncoronary atherosclerosis, abdominal aneurysm, peripheral artery disease, carotid artery stenosis?: no, 3. Do you have a close male relative who had cardiovascular disease (such as a heart attack) before the age of 50 or a female relative who had itbefore age 60?: no, 4. Do you use tobacco in any form (cigarettes, e-cigarettes, cigars, etc.)?: yes, 5. Do you have hypertension (high blood pressure)?: yes and 6. Is your body mass index (BMI) 30kg/m2 or greater?: no Type(s) of exercise: none Frequency of exercise: never History of nephropathy: Yes Date of last renal evaluation: 02/21/20 Date of last urinary microalbumin measurement: 02/21/20 Results of urinary microalbumin measurement: 27.5 Date of last serum creatinine: 02/21/20 Serum creatinine result: 1.1 Nephropathy details: Reports on LUZ-I/ARB History of retinopathy: No History of neuropathy: Yes Date of last foot exam: 03/06/20 Neuropathy details: Reports on medications for pain and loss of protective sensation; Denies historyof foot ulcers, history of amputations, autonomic neuropathy, gastroparesis and followed by business support assistant At risk counseled: Yes Dentures: No Visual/sensory: declined Monofilament exam: L 1st metatarsals: decreased, Left 3rd metatarsals monofilament exam: decreased, L 5th metatarsals: decreased, L great toe: decreased, L 3rd toe: decreased, L 5th toe: decreased, Left medial mid foot: decreased, Left lateral mid-foot: decreased, Left mid-heel: decreased, Left mid-dorsum foot: decreased, R 1st metatarsals: decreased, R 3rd metatarsals: decreased, R 5th metatarsals: decreased, R great toe: decreased, R 3rd toe: decreased, R 5th toe: decreased, Right medial mid foot: decreased, Right lateral mid-foot: decreased, Right mid- heel: decreased and Right mid-dorsum foot: decreased Monofilament foot exam results: Left foot: abnormal and Right foot: abnormal Review of Systems Const Reports as per HPI, Reports system reviewed and no additional complaints, except as documented, Denies body aches, Denies chills, Denies daytime sleepiness, Denies difficulty sleeping, Denies fatigue, Denies fever(s), Denies frequent falls, Denies headache(s), Denies lethargy, Denies poor appetite, Denies snoring, Reports weight gain and Denies weight loss Eyes Reports as per HPI, Reports system reviewed and no additional complaints, except as documented, Denies blurry vision, Denies exophthalmos, Denies change in vision, Denies itchy eyes, Denies loss of peripheral vision, Denies loss of vision, Denies other visual disturbances, Denies eye pain and Denies photophobia ENT Reports system reviewed and no additional complaints, except as documented, Reports as per HPI, Denies change in voice, Denies dysphagia, Denies vertigo, Denies dizziness, Denies otalgia, Denies facial pain, Denies headache(s), Denies lip swelling, Denies nasal discharge, Denies neck pain, Denies nose pain, Denies odynophagia, Denies tinnitus, Denies sinus pain, Denies throat swelling andDenies tongue swelling Card Reports as per HPI, Reports system reviewed and no additional complaints, except as documented, Denies chest pain, Denies chest pain at rest, Denies chest pain with activity, Denies diaphoresis, Denies syncope, Denies edema, Denies irregular heart rhythm, Denies claudication, Denies leg ulcers,Denies leg edema, Denies lightheadedness, Denies palpitations, Denies dyspnea and Denies dyspnea on exertion Resp Reports as per HPI, Reports system reviewed and no additional complaints, except as documented, Denies cough, Denies dyspnea, Denies dyspnea on exertion and Denies snoring GI Reports as per HPI, Reports system reviewed and no additional complaints, except as documented, Denies abdominal pain, Denies melena, Denies change in bowel habits, Denies coffee ground emesis, Denies constipation, Denies dysphagia, Denies heartburn, Denies diarrhea, Denies loose stools, Denies odynophagia and Denies vomiting Reports system reviewed and no additional complaints, except as documented, Reports as per HPI, Denies hematuria, Denies difficulty with ejaculations, Denies genital pain, Denies dysuria, Denies flank pain, Reports nocturia, Denies penile discharge, Denies scrotal swelling, Denies urinary frequency, Denies urinary hesitancy, Denies urinary incontinence and Denies urinary urgency Musc Reports system reviewed and no additional complaints, except as documented, Reports as per HPI, Denies back pain, Denies myalgias, Denies arthralgias, Denies joint swelling, Denies muscle cramps, Denie s muscle weakness and Denies neck pain Skin/Breast Reports system reviewed and no additional complaints, except as documented, Reports as per HPI, Denies change in hair, Denies dry skin, Denies hirsutism, Denies nail changes, Denies new lesions, Denies erythema, Denies photosensitivity, Denies rash, Denies skin pain, Denies skin swelling, Denies unusual bruising and Denies wounds Neuro Reports system reviewed and no additional complaints, except as documented, Reports as per HPI, Denies abnormal movements, Denies abnormal speech, Denies behavioral changes, Denies confusion, Denies vertigo, Denies dizziness, Denies syncope, Denies frequent falls, Denies headache(s), Denies localized weakness, Denies loss of vision, Denies other visual disturbances, Denies seizure-like activity and Denies paresthesias Psych Reports system reviewed and no additional complaints, except as documented, Reports as per HPI, Denies anxiety, Denies behavioral changes, Denies confusion, Denies depression, Denies irrita bility,Denies mood swings, Denies hallucinations, Denies homicidal ideation and Denies suicidal ideation Endo Reports system reviewed and no additional complaints, except as documented, Reports as per HPI, Denies fatigue, Denies increase in ring/shoe/hat size, Reports polydipsia, Reports polyuria and Denies palpitations Roderick/Lymph Reports system reviewed and no additional complaints, except as documented, Reports as per HPI, Denies easy bruising and Denies lymphadenopathy Aller/Immun Denies itchy eyes, Denies lip swelling, Denies throat swelling and Denies tongue swelling Exam Const General: cooperative, healthy appearing, comfortable and no acute distress Nutritional Appearance: average body habitus Orientation: alert, awake and oriented x3 HENMT Head: normal to inspection, normocephalic and atraumatic Ears: hearing grossly normal bilaterally, external ears normal, TM's normal bilaterally and EAC's normal General nose exam: external nose normal, nares normal and nasal mucous membranes and turbinates normal Face and sinus: normal facial exam and face symmetric Mouth: oral mucosae normal, lip normal, tongue normal and moist mucous membranes Teeth and gingiva: no dentures Throat: posterior oropharynx normal and uvula midline Eyes General: appearance normal, both eyes and all related structures Visual Weldon: normal visual weldon by confrontation Alignment and Position: alignment normal and position normal Periorbital: periorbital findings normal Eyelids: eyelids normal Conjunctivae: conjunctivae normal Sclera: sclerae normal Pupils: PERRL and normal by confrontation Neck Neck: normal visual inspection, full ROM, no lymphadenopathy, trachea midline and supple Neck mass: No Chest Chest: normal palpation of entire chest wall Resp Effort Inspection: normal respiratory effort, able to speak in complete sentences, no audible wheezes and no cough Auscultation: clear to auscultation bilaterally Cardio Palpation: normal PMI Rate: regular rate Rhythm: regular rhythm Heart Sounds: S1 normal and S2 normal GI Inspection: Yes normal to inspection, No edema, No large pannus and No obesity Palpation: soft and no hepatosplenomegaly Auscultation: normal bowel sounds General: deferred Musc Cervical Spine: cervical ROM normal Thoracic/Lumbar Spine: thoraco-lumbar ROM normal Skin Lesions: no lesions Rashes: no rashes Trauma: no lacerations or a brasions Wounds: no wounds Hair: normal Nails: normal Neuro General: patient alert, patient awake and patient oriented x3 Cranial Nerves: CN's II- XII intact bilaterally, PERRL, accommodation reflex normal, EOM intact bilaterally, no nystagmus, facial strength normal, tongue midline, hearing normal, able to rotate head bilaterally and able to elevate shoulders bilaterally Extrem General: normal to inspection, full ROM and capillary refill normal Psych Appearance: grossly normal and well kempt Mental Status: mental status grossly normal Speech and Movement: speech and movement normal Mood: congruent mood Affect: normal affect Attitude: cooperative Thought Process: normal Thought Content: normal Insight: insight good Judgment: judgment good Assessment Plan Assessment Plan (1) Diabetes mellitus type 2, uncontrolled: Status: Acute Code(s): E11.65 - Type 2 diabetes mellitus with hyperglycemia SNOMED Code(s): 058164395 Category: Medical Plan - Olivia Woods NP: Will refer to endocrinology as per Dr. Velez. Increase a.m. dose of Basaglar insulin to 45 units. Will maintain p.m. dose of 35 units. Dietary discussed at length. Patient refuses referral to dietary services here at [facility]. Reports will be compliant with dietary teaching at Dr. Muarer. Patient was asked to have diabetic eye exam today. Patient agrees to go [place] the [place] and have diabetic eye exam. Orders: Referrals: Endocrinology Referral (2) Liver failure: Status: Acute Code(s): K72.90 - Hepatic failure, unspecified without coma SNOMED Code(s): 80042383 Category: Medical Plan - Olivia Woods NP: Will recheck liver enzymes in 6 weeks. Will obtain ultrasound of the abdomen as last liver enzymes were elevated. Orders: Orders: US Abdomen complete 1 Week (3) Benign pancreatic tumor: Status: Acute Code(s): D13.6 - Benign neoplasm of pancreas SNOMED Code(s): 37476831 Category: Medical Plan - Olivia Woods NP: Patient reports that he has been diagnosed with a benign pancreatic tumor. Reports that he does notwish to see a specialist regarding this at this time. Discussed that we will get ultrasound of the abdomen, and will discuss referral based on ultrasound results. Orders: Orders: US Abdomen complete 1 Week (4) History of drug abuse: Status: Acute Code(s): F19.11 - Other psychoactive substance abuse, in remission SNOMED Code(s): 336460592 Category: Medical Plan - Olivia Woods NP: Will order a [facility] as patient has history of substance abuse. Orders: Orders: [facility] - Drug Compliance pnl 03/06/20 (5) Diabetic neuropathy, type II diabetes mellitus: Status: Acute Code(s): E11.40 - Type 2 diabetes mellitus with diabetic neuropathy, unspecified SNOMED Code(s): [id number] Category: Medical Plan - Olivia Woods NP: Patient does report that he has a pulling sensation pain and loss of feeling to bilateral feet. Diabetic foot exam is completed in this visit. Patient repo rts that he took gabapentin 600 mg at bedtime previously, and it did help his foot pain. Will start gabapentin 400 mg 3 times daily. We will see patient back in the clinic in 6 weeks, and will re-address this issue then. Orders Other Medications: New: gabapentin 400 mg PO TID 90 caps 2RF insulin glargine (Basaglar KwikPen U-100 Insulin) 35 units (0.35 mL) subcut QAM 15 mL 2RF insulin glargine (Basaglar KwikPen U-100 Insulin) 45 units (0.45 mL) subcut QPM 15 mL 2RF Discontinued: insulin glargine (Basaglar KwikPen U-100 Insulin) Discontinued Reason: Clinically Indicated 35 units (0.35 mL) subcut BID 15 mL 2RF Instructions: Type 2 Diabetes in Adults: New Diagnosis (GEN) Electronically Signed By: <Electronically signed by Olivia Woods FIBER DESIGNER> Date/Time Signed: 03/08/20 0738 Name Value Range Interpretation Code Description Data Marlen rce(s) Supporting Document(s) ID Date Data Source [id number] 02/21/2020 04:49:00 PM EDT [facility] Name Value Range Interpretation Code Description Data Marlen rce(s) Supporting Document(s) Urine Random Creatinine 195.0 mg/dL [facility] THERE IS NO ESTABLISHED RANGE FOR RANDOM URINE CREATININE Urine Microalbumin 27.5 mg/L 0.0-29.9 [facility] Ur Malb/Cre Ratio (ACR) 14.1 ug/mg 0.0-30.0 [facility] ID Date Data Source [id number] 02/21/2020 03:42:00 PM EDT [facility] Name Value Range Interpretation Code Description Data Marlen rce(s) Supporting Document(s) Leukocytes [#/volume] in Blood by Automated count 5.7 10*3/uL 4.45-10 .71 N [facility] Erythrocytes [#/volume] in Blood by Automated count 5.16 10*6/uL 4.3- 6.1 N [facility] Hemoglobin [Moles/volume] in Blood 14.2 g/dL 13-18 N [facility] Hematocrit [Volume Fraction] of Blood by Automated count 44.2 % 4 2-52 N [facility] Erythrocyte mean corpuscular volume [Ent itic volume] in Cord blood by Automated count 85.7 fL 80-96 N [facility] Erythrocyte mean corpuscular hemoglobin [Entitic mass] by Automated count 27.5 pg 27-31 N [facility] Erythrocyte mean corpuscular hemoglobin concentration [Mass/volume] in Cord blood 32.1 g/dL 33-[address] [facility] Erythrocyte distribution width [Entitic volume] by Automated cou nt 16 % 11-15 Above high normal [facility] Platelets [#/volume] in Blood by Automated count 307 10*3/uL 130-472 N [facility] Platelet mean volume [Entitic volume] in Blood 9.8 fL 9.1-13.1 N [facility] Neutrophils/100 leukocytes in Blood by Automated count 55.9 % 41- 77 N [facility] Neutrophils [#/volume] in Blood by Automated count 3.2 U 1.7-7.6 [facility] Lymphocytes/100 leukocytes in Blood by Automated count 34.0 % 14- 46 N [facility] Lymphocytes [#/volume] in Blood by Automated count 2.0 U 0.6-4.6 N [facility] Monocytes/100 leukocytes in Blood by Automated count 7.3 % 4-12 N [facility] Monocytes [#/volume] in Blood by Automated count 0.4 U 0.2-1.2 N [facility] Eosinophils/100 leukocytes in Blood by Automated count 1.6 % 0-7 N [facility] Eosinophils [#/volume] in Blood by Automated count 0.1 U 0.0-0.5 N [facility] Basophils/100 leukocytes in Blood by Automated count 0.9 % 0.4-1 .3 N [facility] Basophils [#/volume] in Blood by Automated count 0.1 U 0.0-0.2 N [facility] NUCLEATED RED BLOOD CELL 0 % [facility] NUCLEATED RED BLOOD CELL# [facility] Immature granulocytes [Presence] in Blood by Automated count 0-2 N [facility] Immature granulocytes [#/volume] in Blood by Automated count 0.0 U 0-0.1 N [facility] Manual Differential panel - Blood NO [facility] ID Date Data Source [id number] 02/21/2020 04:02:00 PM EDT [facility] Name Value Range Interpretation Code Description Data Marlen rce(s) Supporting Document(s) Hemoglobin A1c % 9.5 % 4.0-6.0 Above high normal L [facility] The following ranges may be u sed for interpretation of results: HGBA1C degree of glucose control: Greater than 8%: Action Suggested * Less than 7%: Goal of Diabetic Therapy Less than 6%: NormalFactors such as duration of diabetes, adherence to therapyand the age of the patient should also be considered inassessing the degree of blood glucose control.* High risk of developing termite treater helper complications such asretinopathy, nephropathy, neuropathy, cardiopathy, etc. Some danger of hypoglycemic reaction in Type I diabetics.Some glucose intolerant individuals and "Sub Clinical"diabetics may demonstrate HGBA1C levels in this area. Glucose mean value [Moles/volume] in Blood Estimated f rom glycated hemoglobin 226 mg/dL [facility] l An A1C of 7% - the goal of diabetic ther apy - is equivalentto an EAG of 154 mg/dl. ID Date Data Source [id number] 02/21/2020 04:04:00 PM EDT [facility] Name Value Range Interpretation Code Description Data Marlen rce(s) Supporting Document(s) Prothrombin Time (Patient) 9.6 s 9.6-12.3 N [facility] INR 0.9 0.9-1.1 [facility] THE INR IS OPERATIONALLY DEFINED FOR SUSAN SH PLASMA FROMPATIENTS STABILIZED ON ORAL ANTICOAGULANTS.ROUTINE ANTICOAGULANT THERAPY 2.0-3.0RECURRENT SYSTEMIC EMBOLISM/HEART VALVE REPLACEMENT 2.5-3.5 ID Date Data Source [id number] 02/21/2020 04:29:00 PM EDT [facility] Name Value Range Interpretation Code Description Data Marlen rce(s) Supporting Document(s) Urea nitrogen [Mass/volume] in Serum or Plasma 12 mg/dL 9-23 N [facility] Sodium [Moles/volume] in Serum or Plasma 137 mmol/L 132-146 N [facility] Potassium [Moles/volume] in Serum or Plasma 4.2 mmol/L 3.5-5.5 N [facility] Chloride [Moles/volume] in Serum or Plasma 102 mmol/L 99-109 N [facility] Carbon dioxide, total [Moles/volume] in Serum or Plasma 27 mmol/L 20 -31 N [facility] Anion gap in Serum or Plasma 12 mmol/L 8-16 N [facility] Glucose [Mass/volume] in Serum or Plasma 322 mg/dL 74-106 Above high normal [facility] Creatinine 1.1 mg/dL 0.5-1.1 [facility] Glomerular filtration rate/1.73 sq M.pre dicted [Volume Rate/Area] in Serum or Plasma Greater Than 60 ABOVE 60 [facility] Alanine aminotransferase [Enzymatic acti vity/volume] in Serum or Plasma by With P-5'-P 81 U/L 10-49 Above high normal [facility] Aspartate aminotransferase [Enzymatic ac tivity/volume] in Serum or Plasma by With P-5'-P 79 U/L 0-33 Above high normal [facility] Alkaline phosphatase [Enzymatic activity/volume] in Serum or Plasma 122 U/L 45-129 N [facility] Calcium [Mass/volume] in Serum or Plasma 8.8 mg/dL 8.5-10.1 N [facility] Bilirubin.total [Mass/volume] in Serum or Plasma 0.4 mg/dL 0.3-1.2 [facility] Albumin [Mass/volume] in Serum or Plasma by Bromocresol purple (BCP) dye binding method 4.0 g/dL 3.2-4.8 N [facility] ital Protein [Mass/volume] in Serum or Plasma 7.4 g/dL 5.7-8.2 N [facility] ID Date Data Source [id number] 02/21/2020 04:29:00 PM [facility] Name Value Range Interpretation Code Description Data Marlen rce(s) Supporting Document(s) Gamma glutamyl transferase [Enzymatic activity/volume] in Serum or Plasma 118 U/L 15-85 Above high normal [facility] spital @Review & document.Repeated by: Whitney Ramirez 02/21/20 0109.Result Confirmation: 116 U/L ID Date Data Source [id number] 02/21/2020 04:29:00 PM [facility] Name Value Range Interpretation Code Description Data Marlen rce(s) Supporting Document(s) Lipase [Enzymatic activity/volume] in Serum or Plasma 27 U/L 73-393 Below low normal [facility] ID Date Data Source [id number] 02/21/2020 04:29:00 PM [facility] Name Value Range Interpretation Code Description Data Marlen rce(s) Supporting Document(s) Thyroxine (T4) free [Mass/volume] in Serum or Plasma 1.31 ng/dL 0.89- 1.76 N [facility] ID Date Data Source [id number] 02/21/2020 04:29:00 PM [facility] Value Range Interpretation Code Description Data Marlen rce(s) Supporting Document(s) Thyrotropin [Units/volume] in Serum or Plasma by Detec tion limit <= 0.005 mIU/L 0.57 u[iU]/mL 0.35-5.50 [facility] al ID Date Data Source [id number] 02/21/2020 02:28:00 PM [facility] Patient Name: FALGUNI ALSTON : 1975 Sex: M Pt Unit #: [id number] [facility] Provider: Visit Date/Time: 02/21/20 Primary Insurance: [facility] Secondary Insurance: Self Pay Intake Vital Signs 02/21/20 14:29 Current Height 5 ft 7 in Current Weight 144 lb Weight Measurement Method Standing Scale BMI 22.5 BP 120/82 Blood Pressure Location Lt brachial Position Sitting Respiration 18 Pulse 114 H Pulse Strength Normal Pulse Source Pulse Oximeter Temp 97.7 F Temp Source Oral Pulse Oximetry (%) 96 Oxygen Delivery Method room air Intake Visit Reasons: Encounter to Establish Care Nurse Note: 44 year old male presents today as a new patient to establish care. Patient history of diabetes, mixed hyperlipidemi a,htn, dka, and alcoholism. Patient has been out of his insulin since yesterday and notes his vision is a little blurry today. Patient notes he has new insurance and that he needs generic per insurance of Lantus and NovoLog. Patient needs all new prescriptions as insurance changed to [employer] and uses a Overlay.tv 100 and Overlay.tv 100 test strips. Patient has meter does not need a new one just strips. Patient notes his feet feel like there are pins and needles poking him for past 2 weeks and are painful at night. Patient notes he is 1 pack a day smoker. Bad Credit Collector Required: No Accompanied by: Self / Same as Patient Is patient in pain?: No Allergies No Known Drug Allergies Allergy (Verified 10/03/19 14:25) Medications aspirin (Aspir-) 81 mg PO DAILY atorvastatin 80 mg PO QDAY blood sugar diagnostic (GE100 Blood Glucose Test Strip) test blood sugar four times daily: fasting and pre-parandial blood-glucose meter [employer] folic acid 1 mg PO DAILY insulin glargine (Lantus Solostar U-100 Insulin) 64 units (0.64 mL) subcut BID insulin lispro (Admelog SoloStar U-100 Insulin lispro) 5 units (0.05 mL) subcut TID PRN MDD 45 units metoprolol tartrate 100 mg PO BID multivit with [id number] 0.4-600 mg-mcg (One Daily For Men) 1 ea PO DAILY pantoprazole 40 mg PO DAILY pen needle, diabetic use one needle four times daily with insulin injection ramipril 5 mg PO QDAY thiamine HCl (vitamin B1) 100 mg PO DAILY Referred by:: Self Fall Risk History of falls: Yes (Fell 1 week ago bruised tail bone) Ambulatory Aid:: None Gait/ Transferring:: Normal Medications:: Antihypertensives PHQ-2/9 Over the last 2 weeks, how often have you been bothered by any of the following problems? 1. Little interest or pleasure in doing things: not at all 2. Feeling down, depressed, or hopeless: not at all Total score: 0 3. Trouble falling or staying asleep, or sleeping too much: nearly every day 4. Feeling tired or having little energy: nearly every day 5. Poor appetite or overeating: not at all 6. Feeling bad about yourself - or that you are a failure or have let yourself and your family down:several days 7. Trouble concentrating on things, such as reading the newspaper or watching television: not at all 8. Moving or speaking so slowly that other people could have noticed? - Or the opposite - being so fidgety or restless that you have been moving around a lot more than usual: not at all 9. Thoughts that you would be better off or of hurting yourself in some way: not at all Total score: 7 Source: Developed by Drs. Drew Soto, Lynsey Moyer, Jonathon Colon and colleagues, with an educational francisco from [employer]. HIV Testing Offer - ages 13-64 HIV testing Offer: Yes Requirement for HIV testing offer been met?: Declines today. Pretest education received and acknowledged SBIRT Annual Questionnaire Are you currently in recovery for alcohol or substance use?: No How many times in the past year have you had 5 or more drinks in a day?: 1 or more How many times in the past year have you used a recreational drug or used a prescription medication for nonmedical reasons?: None Do you need a note to return Do you need a note to return to daycare/school/sports/work: No Coronavirus Screening Screening Have you traveled outside of [facility] or [facility] in the last 14 days.: No Has patient experienced coronavirus symptoms: No [facility] Medical History (Updated 02/21/20 @ 15:22 by Olivia Woods NP) Alcohol abuse Chronic pancreatitis Diabetes mellitus, type 2 Gastro esophageal reflux disease History of varicella Hypertension Recurrent DKA Smoker Surgical History History of vasectomy Family History (Updated 04/05/18 @ 14:20 by Mark Reyes M.D.) Mother No problems noted. Father No problems noted. Sister No problems noted. Son No problems noted. Son No problems noted. Daughter No problems noted. Daughter No problems noted. 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 pets and animals: Yes pets and animals: dog(s) leisure activities: hunting, fishing and other Hx Recent Travel (where): No caffeine: No high-fat food intake: 0-1 times daily daily servings fruits/ve-4 daily servings of milk/calcium: 2-4 eating out: rarely or never reads food labels: usually or always during the past year weight has: remained stable quit status: considering quitting alcohol intake: current alcohol intake frequency: 0-2 drinks per day substance use type: does not use special marielle needs: No seatbelt use: always helmet use: Yes drive intox or ride w/ intox line haul truck driver: No water heater temp set < 120 deg: Yes working smoke detector in home: Yes fire extinguisher in home: Yes carbon monox detector in home: Yes firearms in home: Yes firearms unloaded and locked: Yes victim of physical abuse: No victim of emotional abuse: No HPI Diabetes adult 44-year-old male patient with known history of insulin- dependent diabetes, presents today to establish care and to have medication refi lls. Patient reports that he was previously seen Dr. Rivera, and that he has changed his insurance and his insurance is asking him to find another primarycare physician. Documentation from Dr. Rivera's clinic would indicate that patient missed more than 1 appointment without rescheduling or canceling, and he was discharged from Dr. Rivera's practice. Patient reports that he has been out of his medication for approximately 24 hours. States that he was unable to get refills from the pharmacy. States that today's visit was the first visit that wasavailable for him. However it should be noted that patient canceled previous appointment with Dr. Velez and did miss/no-show appointment with this practitioner prior to today's visit. Type: type 2 and insulin-requiring Glucose control symptoms: Reports high fasting glucose and high post-meal glucose; Denies nocturia Weight and fatigue symptoms: Reports not sleeping well and wakes up feeling tired; Denies weight gain or weight loss Cardiopulmonary symptoms: Denies dyspnea or myalgias GI symptoms: Reports increased hunger; Denies vomiting, diarrhea or constipation Other symptoms: Reports blurry vision Percentage of fasting blood glucose within goal: <25% of the time Dietary compliance: Diabetes: poor Has patient/family had Diabetes education in past year: No Glucose testing: understands testing schedule Type(s) of exercise: none Frequency of exercise: never History of nephropathy: Yes History of retinopathy: No History of neuropathy: Yes Neuropathy details: Reports on medications for pain and loss of protective sensation Visual/sensory: declined Review of Systems Const Reports as per HPI, Reports system reviewed and no additional complaints, except as documented, Denies body aches, Denies chills, Denies fatigue, Denies frequent falls, Denies headache(s), Denies increased appetite, Denies lethargy, Denies poor appetite, Denies weakness, Denies weight gain and Denies weight loss Eyes Reports as per HPI, Reports system reviewed and no additional complaints, except as documented, Reports blurry vision, Denies other visual disturbances, Reports requires corrective lenses and Denies photophobia ENT Reports system reviewed and no additional complaints, except as documented, Reports as per HPI, Denies change in voice, Denies vertigo, Denies otalgia, Denies facial pain, Denies headache(s), Denies lip swelling, Denies nasal discharge, Denies neck pain, Denies nose pain, Denies odynophagia,Denies tinnitus, Denies throat swelling and Denies tongue swelling Card Reports as per HPI, Reports system reviewed and no additional complaints, except as documented, Denies chest pain, Denies syncope, Denies irregular heart rhythm, Denies leg ulcers, Denies leg edema, Denies palpitations and Denies dyspnea Resp Reports as per HPI, Reports system reviewed and no additional complaints, except as documented, Denies chest congestion, Denies cough and Denies dyspnea GI Reports as per HPI, Reports system reviewed and no addition al complaints, except as documented, Denies melena, Denies coffee ground emesis, Denies constipation, Denies fecal incontinence, Denies diarrhea, Denies odynophagia, Denies vomiting and Denies hematemesis Reports system reviewed and no additional complaints, except as documented, Reports as per HPI, Denies hematuria, Denies dysuria, Denies nocturia and Denies urinary incontinence Musc Reports system reviewed and no additional complaints, except as documented, Reports as per HPI, Denies back pain, Denies myalgias, Denies arthralgias, Denies joint swelling, Denies muscle weaknessand Denies neck pain Skin/Breast Reports system reviewed and no additional complaints, except as documented, Reports as per HPI, Denies change in pigmentation, Denies hirsutism, Denies alopecia, Denies new lesions, Denies photosensitivity, Denies rash, Denies sores and Denies unusual bruising Neuro Reports system reviewed and no additional complaints, except as documented, Reports as per HPI, Denies abnormal movements, Denies abnormal speech, Denies behavioral changes, Denies confusion, Denies vertigo, Denies syncope, Denies frequent falls, Denies headache(s), Denies other visual disturbances, Denies seizure-like activity, Denies paresthesias, Denies tremor(s) and Denies weakness Psych Reports system reviewed and no additional complaints, except as documented, Reports as per HPI, Denies anxiety, Denies beh avioral changes, Denies change in appetite, Denies confusion, Denies mood swings, Denies hallucinations, Denies homicidal ideation and Denies suicidal ideation Endo Reports system reviewed and no additional complaints, except as documented, Reports as per HPI, Denies fatigue, Denies increase in ring/shoe/hat size and Denies palpitations Roderick/Lymph Reports system reviewed and no additional complaints, except as documented, Reports as per HPI, Denies easy bruising and Denies lymphadenopathy Aller/Immun Denies lip swelling, Denies throat swelling and Denies tongue swelling Exam Const General: cooperative, comfortable and no acute distress Nutritional Appearance: average body habitus Orientation: alert, awake and oriented x3 [facility] Head: normal to inspection, normocephalic and atraumatic Ears: hearing grossly normal bilaterally, external ears normal, TM's normal bilaterally and EAC's normal General nose exam: external nose normal, nares normal, nasal mucous membranes and turbinates normal and septum normal Face and sinus: normal facial exam and face symmetric Mouth: oral mucosae normal, lip normal and moist mucous membranes Eyes General: appearance normal, both eyes and all related structures Visual Weldon: normal visual weldon by confrontation Alignment and Position: alignment normal and position normal Eyelids: eyelids normal Conjunctivae: conjunctivae normal Sclera: sclerae normal Pupils: PERRL and normal by confrontation Neck Neck: normal visual inspection, full ROM, no lymphadenopathy, trachea midline and supple Neck mass: No Chest Chest: normal palpation of entire chest wall Resp Effort Inspection: normal respiratory effort, able to speak in complete sentences, no audible wheezes and no cough Auscultation: clear to auscultation bilaterally Cardio Palpation: normal PMI Rate: regular rate Rhythm: regular rhythm Heart Sounds: S1 normal and S2 normal GI Inspection: Yes normal to inspection, No edema and No obesity Palpation: soft and no hepatosplenomegaly Auscultation: normal bowel sounds General: deferred Musc Cervical Spine: cervical ROM normal Thoracic/Lumbar Spine: thoraco-lumbar ROM normal Skin Lesions: no lesions Rashes: no rashes Trauma: no lacerations or abrasions Wounds: no wounds Hair: normal Nails: normal Neuro General: patient alert, patient awake, patient oriented x3 and normal light touch, pain and propiocept ion Cranial Nerves: CN's II-XII intact bilaterally, PERRL, no nystagmus, facial strength normal, tongue midline, hearing normal, able to rotate head bilaterally and able to elevate shoulders bilaterally Extrem General: normal to inspection, full ROM and capillary refill normal Psych Appearance: grossly normal Mental Status: mental status grossly normal Speech and Movement: speech and movement normal Mood: congruent mood Affect: normal affect Attitude: cooperative Thought Process: normal Thought Content: normal Insight: insight good Judgment: judgment good Quality Reporting Depression/Bipolar (159/160/161/169/177) Total score: 7 Assessment Plan Assessment Plan (1) Encounter to establish care with new doctor: Code(s): Z76.89 - Persons encountering health services in other specified circumstances Plan - Olivia Woods NP: Patient reports that his insurance is changed, and due to his insurance change he was required to find a new primary care provider. Discussed with patient that provider patient relationship requires work from both provider and patient. Encouraged him to be candid with provider about health care needs and problems. Encouraged him to have/keep regular appointments, and discussed with him the seriousness of his condition and encouraged him to make appropriate dietary choices, and take medications as prescribed. (2) Mixed hyperlipidemia: Status: Acute Code(s): E78.2 - Mixed hyperlipidemia SNOMED Code(s): 188720347 Category: Medical Plan - Olivia Woods NP: Patient has history of hyperlipidemia. Discussed with him that we will obtain fasting lipid panel. Will advise him of results as it is available. We will continue medications at this time as they were previously ordered. And will see patient back in the clinic in approximately 10 days to follow-up. Patient verbalizes understanding and agreement Orders: Orders: CMP 02/21/20 TSH 02/21/20 Microalbumin/Creat Ratio - ACR 02/21/20 CBC W AUTO DIFF 02/21/20 HGBA1C + EAG 02/21/20 FREE T4 (LAB) 02/21/20 (3) Essential hypertension: Status: Acute Code(s): I10 - Essential (primary) hypertension SNOMED Code(s): 07951858 Category: Medical Plan - Olivia Woods NP: Patient reports long standing history of essential hypertension. Blood pressure is at goal today. Patient reports that he is currently taking Lopressor for his blood pressure. States that he does not miss doses and that he feels his blood pressure is well controlled. Heart rate is essentially normal. Will refill this medication at this time. Will obtain appropriate labs including CBC CMP thyroid studies microalbumin and hemoglobin A1c. Will advise patient of results as they are available. And will follow up with patient in the office somewhere between 10 and 14 days. Orders: Orders: CMP 02/21/20 TSH 02/21/20 Microalbumin/Creat Ratio - ACR 02/21/20 CBC W AUTO DIFF 02/21/20 HGBA1C + EAG 02/21/20 FREE T4 (LAB) 02/21/20 (4) Diabetes mellitus type 2, uncontrolled: Status: Acute Code(s): E11.65 - Type 2 diabetes mellitus with hyperglycemia SNOMED Code(s): 126504602 Category: Medical Plan - Olivia Woods NP: Patient reports that he is an insulin-dependent diabetic. Reports that his blood sugars do remain high. States that he has been out of his insulin for approximately 24 hours. He is currently been taking a long-acting insulin at night, and a short acting insulin preprandial. Patient reports thathe has been on this routinely for quite some time, however he states that his blood sugars have remained elevated. Patient also reports that his preprandial doses have been approximately 30 units3 times a day. Will refill patient's insulin at this time. We will also get labs including hemoglobin A1c. Will discuss change in insulin regimen with patient at follow-up in the office in 10 to 14 days. Patientverbalizes understanding and agreement. Orders: Orders: CMP 02/21/20 TSH 02/21/20 Microalbumin/Creat Ratio - ACR 02/21/20 CBC W AUTO DIFF 02/21/20 HGBA1C + EAG 02/21/20 FREE T4 (LAB) 02/21/20 (5) Paroxysmal A- fib: Status: Acute Code(s): I48.0 - Paroxysmal atrial fibrillati on SNOMED Code(s): 769544143 Category: Medical Plan - Olivia Woods NP: Patient reports that he has a history of proximal atrial fib. States that he has not been in this rhythm for "quite some time". Patient reports that the only medication that he is taking as far as his atrial we have is his Lopressor and his aspirin. Patient does report that he takes his aspirin daily and that he tries not to miss doses of it for his Lopressor. Patient has seen cardiology in the past, declines cardiology referral at this time. Orders: Orders: CMP 02/21/20 CBC W AUTO DIFF 02/21/20 EKG Standard 12 Lead 02/21/20 (6) Benign pancreatic tumor: Status: Acute Code(s): D13.6 - Benign neoplasm of pancreas SNOMED Code(s): 84639944 Category: Medical Plan - Olivia Woods FIBER DESIGNER: Patient's records would indicate that he has a benign tumor of the pancreas. According to records this has been evaluated in the past. Will order liver studies and a lipase. Will advise patient ofresults as they are available if liver studies are elevated, will consider repeating ultrasound of the liver. Orders: Orders: GGT 02/21/20 Prothrombin Time INR 02/21/20 LIPASE 02/21/20 (7) Liver failure: Status: Acute Code(s): K72.90 - Hepatic failure, unspecified without coma SNOMED Code(s): 10602026 Category: Medical Plan - Olivia Woods FIBER DESIGNER: Patient reports that he does have a history of liver failure. States that he is not seeing GI physician at this time. Discussed with him referral to GI, patient declines this at this time. Will obtain some labs including PT/INR and a lipase. Will advise patient of results as they are available. We will see patient back in the clinic in somewhere between 10 and 14 days, and will discuss GI referral again at that time. Orders: Orders: Prothrombin Time INR 02/21/20 LIPASE 02/21/20 (8) ETOH abuse: Status: Acute Code(s): F10.10 - Alcohol abuse, uncomplicated SNOMED Code(s): 13194280 Category: Social Hx Plan - Olivia Woods NP: Patient has documented history of EtOH abuse. Patient declines that he is using EtOH at this time. States that he cannot remember the last time that he used alcohol will obtain [employer] drug compliance panel. Will advise patient of results as they are available. Did discuss with patient importance of avoiding EtOH use if at all possible as it does turn to sugar and does make his blood sugar extremely elevated. Patient verbalizes understanding and agreement. Orders: Orders: [employer] - Drug Compliance pnl 02/21/20 (9) Substance abuse: Status: Acute Code(s): F19.10 - Other psychoactive substance abuse, uncomplicated SNOMED Code(s): 94786869 Category: Medical Plan - Olivia Woods NP: Please disregard entered in error. Orders: Orders: [employer] - Drug Compliance pnl 02/21/20 Orders Other Medications: New: insulin aspart U-100 (Novolog PenFill U-100 Insulin aspart) 1 sliding scale dose subcut USEASDIRECTD 15 mL 3RF thiamine HCl (vitamin B1) 100 mg PO DAILY 90 tabs 0RF ramipril 5 mg PO QDAY 30 caps 2RF Changed: From: blood sugar diagnostic (GE100 Blood Glucose Test Strip) QID 150 Box 5RF E10.9 To: blood sugar diagnostic (GE100 Blood Glucose Test Strip) test blood sugar four times daily: fasting and pre-parandial 150 Box 5RF E10.9 From: pen needle, diabetic TID 100 Box 3RF E10.9 To: pen needle, diabetic use one needle four times daily with insulin injection 100 Box 3RF E10.9 Refilled: aspirin (Aspir-) 81 mg PO DAILY 30 tabs 3RF atorvastatin 80 mg PO QDAY 30 tabs 3RF folic acid 1 mg PO DAILY 30 tabs 5RF insulin glargine (Lantus Solostar U-100 Insulin) Take 32U in the morning and 32U at night. 64 units (0.64 mL) subcut BID 3 Box 5RF E11.9 metoprolol tartrate 100 mg PO BID 60 tabs 1RF pantoprazole 40 mg PO DAILY 30 tabs 3RF Discontinued: [Ramipril] Discontinued Reason: None As directed 1 ea 2RF Electronically Signed By: <Electronically signed by Olivia Woods FIBER DESIGNER> Date/Time Signed: 02/23/202157 Name Value Range Interpretation Code Description Data Marlen rce(s) Supporting Document(s) ID Date Data Source [id number] 12/21/2019 10:15:00 AM EDT [facility] Name Value Range Interpretation Code Description Data Marlen rce(s) Supporting Document(s) SARS CORONAVIRUS 2 RNA [facility] This lab was ordered by [facility] and reported by [facility]. Procedure Social History Code Duration Value Status Description Data Source(s ) 07/15/2020 02:52:47 PM EST Current every day smoker co mpleted Current every day smoker [facility] 07/15/2020 02:52:47 PM EST Current every day smoker co mpleted Current every day smoker [facility] Smoking 07/15/2020 02:52:00 PM EST Current every day smoker co mpleted Current every day smoker [facility] Smoking 07/15/2020 02:52:00 PM EST Current every day smoker co mpleted Current every day smoker [facility] Alcohol intake 07/15/2020 12:00:00 AM EST Current drinker of al cohol (finding) completed Current drinker of alcohol (finding) [facility] Cigarette pack-years 07/15/2020 12:00:00 AM EST UNK [facility] Cigarettes smoked current (pack per day) - Reported 07/15/20 12:00:00 AM EST UNK [facility] Smoking 07/15/2020 12:00:00 AM EST Current every day smoker co mpleted Current every day smoker [facility] 07/13/2020 06:20:57 PM EST Yes completed Yes [facility] 07/13/2020 06:20:57 PM EST Yes completed Yes [facility] 07/13/2020 06:20:57 PM EST Yes completed Yes [facility] 07/13/2020 06:20:57 PM EST Yes completed Yes [facility] 07/13/2020 06:20:57 PM EST Yes completed Yes [facility] 07/13/2020 06:20:57 PM EST Yes completed Yes [facility] 07/13/2020 06:20:57 PM EST Current every day smoker co mpleted Current every day smoker [facility] Smoking 07/13/2020 06:20:00 PM EST Current every day smoker co mpleted Current every day smoker [facility] 05/28/2020 02:01:00 PM EDT Current every day smoker co mpleted Current every day smoker [facility] Smoking 05/28/2020 02:01:00 PM EDT Current every day smoker co mpleted Current every day smoker [facility] 02/20/2020 02:19:00 PM EDT N/A completed N/A [facility] 02/20/2020 02:19:00 PM EDT No completed No [facility] 02/20/2020 02:19:00 PM EDT N/A completed N/A [facility] 02/20/2020 02:19:00 PM EDT No completed No [facility] 02/20/2020 02:19:00 PM EDT N/A completed N/A [facility] 02/20/2020 02:19:00 PM EDT No completed No [facility] 02/20/2020 02:19:00 PM EDT N/A completed N/A [facility] 02/20/2020 02:19:00 PM EDT No completed No [facility] 02/20/2020 02:19:00 PM EDT Yes completed Yes [facility] 02/20/2020 02:19:00 PM EDT Yes completed Yes [facility] 02/20/2020 02:19:00 PM EDT N/A completed N/A [facility] 02/20/2020 02:19:00 PM EDT No completed No [facility] 02/20/2020 02:19:00 PM EDT Yes completed Yes [facility] 02/20/2020 02:19:00 PM EDT Yes completed Yes [facility] 02/20/2020 02:19:00 PM EDT N/A completed N/A [facility] 02/20/2020 02:19:00 PM EDT No completed No [facility] 02/20/2020 02:19:00 PM EDT Yes completed Yes [facility] 02/20/2020 02:19:00 PM EDT Yes completed Yes [facility] Vital Signs ID Date Data Source UNK Name Value Range Interpretation Code Description Data Source(s) Body mass index (BMI) [Ratio] 23.6 kg/m2 23.6 k g/m2 [facility] ([facility]) Body weight 160.00 [lb_av] 160.00 [lb_av] [facility] T ([facility]) Body height 69 [in_i] 69 [in_i] [facility] ([facility]) 5'9" Body temperature 96.7 [degF] 96.7 [degF] [facility] ([facility]) Oxygen saturation in Arterial blood by Pulse oximetry 96 % 96 % [facility] ([facility]) Body mass index (BMI) [Ratio] 24.7 kg/m2 24.7 k g/m2 [facility] ([facility]) Body weight 163.50 [lb_av] 163.50 [lb_av] [facility] T ([facility]) Body height 68.25 [in_i] 68.25 [in_i] [facility] ([facility]) 5'8.25" Heart rate 105 /min 105 /min [facility] ([facility]) Diastolic blood pressure 88 mm[Hg] 88 mm[Hg] [facility] ([facility] ) Systolic blood pressure 130 mm[Hg] 130 mm[Hg] M EDENT ([facility]) Body mass index (BMI) [Ratio] 23.5 kg/m2 23.5 k g/m2 [facility] ([facility]) Body height 69 [in_i] 69 [in_i] [facility] ([facility]) 5'9" Body weight 159.00 [lb_av] 159.00 [lb_av] MEDEN T ([facility], [facility]) Body temperature 98.5 [degF] 98.5 [degF] [facility] ([facility]) Oxygen saturation in Arterial blood by Pulse oximetry 95 % 95 % [facility] ([facility], [facility]) Heart rate 125 /min 125 /min [facility] ([facility]) Diastolic blood pressure 85 mm[Hg] 85 mm[Hg] [facility] ([facility], [facility]) Systolic blood pressure 119 mm[Hg] 119 mm[Hg] M EDENT ([facility], [facility]) ID Date Data Source [id number] 07/25/2020 07:46:[address] [facility] Name Value Range Interpretation Code Description Data Source(s) WEIGHT RECORDED 171.[address] [facility] Body height Measured 69 in 69 in [facility] TRANSFER FROM [facility] Patient Treatment Plan of Care Planned Activity Planned Date Details Description Data Source (s) sennosides, SNF 8.6 MG Oral Tablet 07/18/2020 12:00:[address] [facility] ferrous sulfate 325 MG Oral Tablet 07/18/2020 12:00:[address] [facility] Diclofenac Sodium 0.01 MG/MG Topical Gel 07/18/2020 12:00:[address] [facility] Cyclobenzaprine hydrochloride 10 MG Oral Tablet 07/18/2020 12:00:[address] [facility] pantoprazole 40 MG Delayed Release Oral Tablet 07/18/2020 12:00:[address] [facility] Glucagon 1 MG Injection 07/15/2020 08:25:[address] [facility] Glucose 0.417 MG/MG Oral Gel 07/15/2020 08:25:[address] [facility] ondansetron (ZOFRAN) injection 4 mg 07/15/2020 08:24:[address] [facility] pantoprazole 40 MG Delayed Release Oral Tablet 06/20/2012 12:00:00 AM [facility] Clonidine Hydrochloride 0.1 MG Oral Tablet 03/17/2012 12:00:00 AM [facility]
[2020-10-05 14:46] LABS: ALBUMIN 4.1 GM/DL (3.2-5.2); BILIRUBIN,DIRECT 0.2 MG/DL (0.0-0.2); CALCIUM LEVEL 11.7 MG/DL (8.5-10.1); CK-MB VALUE MASS 2.7 NG/ML (<3.6); CREATININE FOR GFR 1.71 MG/DL (0.70-1.30); GLOMERULAR FILTRATION RATE 46.3 (>60); MB/CK RELATIVE INDEX 4.66 (< OR =4); POTASSIUM SERUM 3.5 MEQ/L (3.5-5.1); TOTAL PROTEIN 7.3 GM/DL (6.4-8.2); TROPONIN I 0.13 NG/ML (< 0.10)
[2020-10-05] MEDS ORDERED: NS 1,000 ML IV SCH ×2 (14:55→17:00)
[2020-10-05] MEDS ORDERED: HumuLIN R (REGULAR) INSULIN (NovoLIN R) **100U/ML** PER UNIT IV ONE (15:00)
--- NOTE | 2020-10-05 15:25 | REP ---
INDICATION: abd pain, vomiting COMPARISON: Comparison study 08/17/2019.. TECHNIQUE: Helical scanning is acquired in 4 mm axial images were reformatted. Coronal and sagittal MPR images were generated and reviewed. FINDINGS: Preliminary digital air defence officer radiograph is unremarkable. Bowel gas pattern is normal. The lung bases are clear. There is moderate diffuse fatty infiltration of the liver. No focal liver lip mass lesion is seen. The liver is near the upper range of normal in size with a 16 cm craniocaudal span in the midclavicular line. Spleen is normal in size homogeneous in texture. There is an accessory splenule. A small sliding-type hiatal hernia is noted. Normal adrenal glands are seen. There are coarse calcifications in the pancreatic head consistent with chronic pancreatitis. There is a complex low-density lesion in the body of the pancreas measuring 4.3 x 3.2 x 4.2 cm. This is unchanged in appearance in size from the comparison CT study of August 17, 2019. No abnormalities noted in the gallbladder. No other pancreatic mass or cyst is observed. The kidneys appear morphologically intact. No intrarenal calculus or hydronephrosis is seen. Normal caliber aorta is seen. A normal appendix is noted in the right lower quadrant. Urinary bladder is somewhat distended but otherwise intact. Prostate and seminal vesicles are unremarkable. Small and large intestinal bowel loops are unremarkable. IMPRESSION: Fatty infiltration of the liver again noted. Evidence of chronic pancreatitis with 4.3 cm heterogeneous complex cystic lesion in the body of the pancreas unchanged from the 2019 study. Normal appendix. Mildly distended urinary bladder. Otherwise negative. No urinary tract calculus seen. No hydronephrosis noted. <Electronically signed by Boyd Alvarado > 10/05/20 1529
[2020-10-05 16:31] LABS: RSV AMPLIFICATION NEGATIVE (NEGATIVE)
[2020-10-05 16:41] LABS: ABG BASE EXCESS -4.9 (-2.0-2.0); ABG HCO3 18.1 MEQ/L (22.0-26.0); ABG O2 SATURATION 98.1 % (95.0-99.0); ABG PARTIAL PRESSURE CO2 27.6 mmHg (35.0-45.0); ABG PARTIAL PRESSURE O2 109.9 mmHg (75.0-100.0); ABG STANDARD HCO3 20.4 MEQ/L (22.0-26.0); ABG pH (ARTERIAL) 7.435 UNITS (7.350-7.450)
[2020-10-05] MEDS ORDERED: THIA100T7 PO (16:46)
[2020-10-05] MEDS ORDERED: INSU100I28 SC (16:46)
[2020-10-05] MEDS ORDERED: GLUCAGON INJ 1MG VIAL SC PRN (17:00)
[2020-10-05] MEDS ORDERED: DEXTROSE 50% 50 ML SYRINGE IV PRN (17:00)
[2020-10-05] MEDS ORDERED: GLUCOSE 4GM CHEW TABLET PO PRN (17:00)
[2020-10-05] MEDS ORDERED: HumaLOG INSULIN (NovoLOG) PER UNIT SC SCH ×2 (17:30→21:00)
--- OUTSIDE RECORDS SUMMARY | 2020-10-05 18:16 | CCD ---
Author Author [facility] Organization [facility] Address Unknown Phone Unavailable Care Team Providers Care Autoclave Operator Name Role Phone Home Winslow MD Unavailable [...] STAUFFER MD Unavailable Unavailable COOK, B REENA MISSILE CONTROL PILOT Unavailable Unavailable COOK, B REENA MISSILE CONTROL PILOT Unavailable Unavailable COOK, B REENA MISSILE CONTROL PILOT Unavailable Unavailable COOK, B REENA MISSILE CONTROL PILOT Unavailable Unavailable COOK, B REENA MISSILE CONTROL PILOT Unavailable Unavailable COOK, B REENA MISSILE CONTROL PILOT Unavailable Unavailable COOK, B REENA MISSILE CONTROL PILOT Unavailable Unavailable COOK, B REENA MISSILE CONTROL PILOT Unavailable Unavailable COOK, B REENA MISSILE CONTROL PILOT Unavailable Unavailable COOK, B REENA MISSILE CONTROL PILOT Unavailable Unavailable COOK, B REENA MISSILE CONTROL PILOT Unavailable Unavailable COOK, B REENA MISSILE CONTROL PILOT Unavailable Unavailable COOK, B REENA MISSILE CONTROL PILOT Unavailable Unavailable COOK, B REENA MISSILE CONTROL PILOT Unavailable Unavailable COOK, B REENA MISSILE CONTROL PILOT Unavailable Unavailable COOK, B REENA MISSILE CONTROL PILOT Unavailable Unavailable COOK, B REENA MISSILE CONTROL PILOT Unavailable Unavailable COOK, B REENA MISSILE CONTROL PILOT Unavailable Unavailable COOK, B REENA MISSILE CONTROL PILOT Unavailable Unavailable COOK, B REENA MISSILE CONTROL PILOT Unavailable Unavailable COOK, B REENA MISSILE CONTROL PILOT Unavailable Unavailable COOK, B REENA MISSILE CONTROL PILOT Unavailable Unavailable COOK, B REENA MISSILE CONTROL PILOT Unavailable Unavailable COOK, B REENA MISSILE CONTROL PILOT Unavailable Unavailable COOK, B REENA MISSILE CONTROL PILOT Unavailable Unavailable COOK, B REENA MISSILE CONTROL PILOT Unavailable Unavailable COOK, B REENA MISSILE CONTROL PILOT Unavailable Unavailable COOK, B REENA MISSILE CONTROL PILOT Unavailable Unavailable COOK, B REENA MISSILE CONTROL PILOT Unavailable Unavailable COOK, B REENA MISSILE CONTROL PILOT Unavailable Unavailable COOK, B REENA MISSILE CONTROL PILOT Unavailable Unavailable COOK, B REENA MISSILE CONTROL PILOT Unavailable Unavailable COOK, B REENA MISSILE CONTROL PILOT Unavailable Unavailable COOK, B REENA MISSILE CONTROL PILOT Unavailable Unavailable COOK, B REENA MISSILE CONTROL PILOT Unavailable Unavailable COOK, B REENA MISSILE CONTROL PILOT Unavailable Unavailable COOK, B REENA MISSILE CONTROL PILOT Unavailable Unavailable COOK, B REENA MISSILE CONTROL PILOT Unavailable Unavailable COOK, B REENA MISSILE CONTROL PILOT Unavailable Unavailable COOK, B REENA MISSILE CONTROL PILOT Unavailable Unavailable COOK, B REENA MISSILE CONTROL PILOT Unavailable Unavailable COOK, B REENA MISSILE CONTROL PILOT Unavailable Unavailable COOK, B REENA MISSILE CONTROL PILOT Unavailable Unavailable COOK, B REENA MISSILE CONTROL PILOT Unavailable Unavailable COOK, B REENA MISSILE CONTROL PILOT Unavailable Unavailable COOK, B REENA MISSILE CONTROL PILOT Unavailable Unavailable COOK, B REENA MISSILE CONTROL PILOT Unavailable Unavailable COOK, B REENA MISSILE CONTROL PILOT Unavailable Unavailable COOK, B REENA MISSILE CONTROL PILOT Unavailable Unavailable COOK, B REENA MISSILE CONTROL PILOT Unavailable Unavailable COOK, B REENA MISSILE CONTROL PILOT Unavailable Unavailable COOK, B REENA MISSILE CONTROL PILOT Unavailable Unavailable COOK, B REENA MISSILE CONTROL PILOT Unavailable Unavailable COOK, B RENEA MISSILE CONTROL PILOT Unavailable Unavailable COOK, B REENA MISSILE CONTROL PILOT Unavailable Unavailable COOK, B REENA MISSILE CONTROL PILOT Unavailable Unavailable COOK, B REENA MISSILE CONTROL PILOT Unavailable Unavailable COOK, B REENA MISSILE CONTROL PILOT Unavailable Unavailable COOK, B REENA MISSILE CONTROL PILOT Unavailable Unavailable COOK, B REENA MISSILE CONTROL PILOT Unavailable Unavailable COOK, B REENA MISSILE CONTROL PILOT Unavailable Unavailable COOK, B REENA MISSILE CONTROL PILOT Unavailable Unavailable COOK, B REENA MISSILE CONTROL PILOT Unavailable Unavailable COOK, B REENA MISSILE CONTROL PILOT Unavailable Unavailable Shruti Hernández MD Unavailable Unavailable [...] Unavailable LIMON, VJ MTZ Unavailable Unavailable LIMON, JV MTZ Unavailable Unavailable LIMON, VJ MTZ Unavailable Unavailable LIMON, VJ MTZ Unavailable Unavailable LIMON, VJ MTZ Unavailable Unavailable LIMON, VJ MTZ Unavailable Unavailable KOPIDLANSKY, Jonn QUIROGA FISH AND WILDLIFE BIOLOGIST-ASSISTANT HOUSEKEEPING MANAGER-C Unavailable Unava ilable KOPIDLANSKY, Jonn QUIROGA FISH AND WILDLIFE BIOLOGIST-ASSISTANT HOUSEKEEPING MANAGER-C Unavailable Unava ilable KOPIDLANSKY, Jonn QUIROGA FISH AND WILDLIFE BIOLOGIST-ASSISTANT HOUSEKEEPING MANAGER-C Unavailable Unava ilable KOPIDLANSKY, Jonn QUIROGA FISH AND WILDLIFE BIOLOGIST-ASSISTANT HOUSEKEEPING MANAGER-C Unavailable Unava ilable KOPIDLANSKY, Jonn QUIROGA FISH AND WILDLIFE BIOLOGIST-ASSISTANT HOUSEKEEPING MANAGER-C Unavailable Unava ilable KOPIDLANSKY, Jonn QUIROGA APRN-ASSISTANT HOUSEKEEPING MANAGER-C Unavailable Unava ilable KOPIDLANSKY, Jonn QUIROGA APRN-ASSISTANT HOUSEKEEPING MANAGER-C Unavailable Unava ilable KOPIDLANSKY, Jonn QUIROGA FISH AND WILDLIFE BIOLOGIST-ASSISTANT HOUSEKEEPING MANAGER-C Unavailable Unava ilable KOPIDLANSKY, Jonn QUIROGA APRN-ASSISTANT HOUSEKEEPING MANAGER-C Unavailable Unava ilable KOPIDLANSKY, Jonn QUIROGA FISH AND WILDLIFE BIOLOGIST-ASSISTANT HOUSEKEEPING MANAGER-C Unavailable Unava ilable KOPIDLANSKY, Jonn QUIROGA FISH AND WILDLIFE BIOLOGIST-ASSISTANT HOUSEKEEPING MANAGER-C Unavailable Unava ilable KOPIDLANSKY, Jonn QUIRGOA APRN-ASSISTANT HOUSEKEEPING MANAGER-C Unavailable Unava ilable KOPIDLANSKY, Jonn QUIROGA APRN-ASSISTANT HOUSEKEEPING MANAGER-C Unavailable Unava ilable KOPIDLANSKY, Jonn QUIROGA FISH AND WILDLIFE BIOLOGIST-ASSISTANT HOUSEKEEPING MANAGER-C Unavailable Unava ilable KOPIDLANSKY, Jonn QUIROGA FISH AND WILDLIFE BIOLOGIST-ASSISTANT HOUSEKEEPING MANAGER-C Unavailable Unava ilable KOPIDLANSKY, Jonn QUIROGA FISH AND WILDLIFE BIOLOGIST-ASSISTANT HOUSEKEEPING MANAGER-C Unavailable Unava ilable KOPIDLANSKY, Jonn QUIROGA FISH AND WILDLIFE BIOLOGIST-ASSISTANT HOUSEKEEPING MANAGER-C Unavailable Unava ilable KOPIDLANSKY, Jonn QUIROGA FISH AND WILDLIFE BIOLOGIST-ASSISTANT HOUSEKEEPING MANAGER-C Unavailable Unava ilable KOPIDLANSKY, Jonn QUIROGA FISH AND WILDLIFE BIOLOGIST-ASSISTANT HOUSEKEEPING MANAGER-C Unavailable Unava ilable KOPIDLANSKY, Jonn QUIROGA FISH AND WILDLIFE BIOLOGIST-ASSISTANT HOUSEKEEPING MANAGER-C Unavailable Unava ilable KOPIDLANSKY, Jonn LUNDBERGIE FISH AND WILDLIFE BIOLOGIST-ASSISTANT HOUSEKEEPING MANAGER-C Unavailable Unava ilable KOPIDLANSKY, Jonn LUNDBERGIE FISH AND WILDLIFE BIOLOGIST-ASSISTANT HOUSEKEEPING MANAGER-C Unavailable Unava ilable Rohit, Marshall Unavailable Unavailable Rohit, Marshall Unavailable Unavailable Rohit, Marshall Unavailable Unavailable Rohit, Marshall Unavailable Unavailable Rohit, Marshall Unavailable Unavailable Rohit, Marshall Unavailable Unavailable Rohit, Marshall Unavailable Unavailable Rohit, Marshall Unavailable Unavailable Rohit, Masrhall Unavailable Unavailable Rohit, Marshall Unavailable Unavailable Rohit, [...] Billy, Juwan Gifford MD Unavailable Unavailable Billy, uJwan Gifford MD Unavailable Unavailable Billy, Juwan Gifford [...] is protected by Article 27-F of the [place] State Public Health law. If you continue you may have access to information: Regarding HIV / AIDS; Provided by facilities licensed or operated by the [facility] Office of Mental Health; or Provided by the [facility] Office for People With Developmental Disabilities. If such information is present, then the following [facility] mandated warning applies: This information has been [...] law may result in a fine or senior living sentence or both. A general authorization for the release of medical or other information is NOT sufficient authorization for further disc losure. Allergies and Adverse Reactions Type Description Substance Reaction Status Data Source(s ) Drug Class NO KNOWN ALLERGIES NO KNOWN ALLERGIES [facility] Drug allergy No Known Drug Allergies No Known Drug Allergies [facility] Family History Family Member Name Family Member Gender Family Member Status Date o f Status Description Data Source(s) Unknown Condition [facility] Unknown Condition [facility] Unknown Condition [facility] Unknown Condition [facility] Unknown Condition [facility] Unknown Condition [facility] Unknown Condition [facility] Unknown Condition [facility] Unknown Condition [facility] Unknown Condition [facility] Unknown Condition [facility] Unknown Condition [facility] Unknown Male Problem [facility] ([facility]) Encounters Encounter Providers Location Date Indications Data Source(s ) Outpatient Attender: VJ LIMON MD 10/31/2020 12:00:00 AM [facility] Outpatient Attender: Balta Billy MD Physical Therapy 08/08/2020 0 7:00:00 AM EST [facility] ([facility]) Outpatient Attender: MARSHA VELEZ MD 07/27/2020 11:14:00 AM EST HTN,F17.209,I48.0,E78.2,I10,E11.65,E1.40,Z79.4 [facility] HTN,F17.209,I48.0,E78.2,I10,E11.65,E1.40 ,Z79.4 Outpatient Attender: MARSHA VELEZ MDReferrer: MARSHA VELEZ MD 07/25/2020 11:13:00 AM EST - 07/25/2020 12:16:00 PM EST [facility] Outpatient Attender: Marshall Bee [id number] 07/17/2020 09:48:05 PM [facility] Inpatient Attender: ALEX Roa er: NOÉ ANGELAttender: Fer Winslow MDAttender: TIBURCIO STAUFFER MDAdmitter: Fer Winslow MDReferrer: Fer Winslow MD [id number] 07/15/2020 12:00:00 AM EST - 07/18/2020 12:23:00 PM EST Gastrointestinal hemorrhage, unspecified [facility] Gastrointestinal hemorrhage, unspecified Patient discharged. Inpatient Attender: MORRO Fragoso nder: Shruti Hernández MDAdmitter: MORRO LUQUE MDConsultant: William Ramos JRConsultant: Adan Garza MD 07/13/2020 08:42:00 PM EST - 07/15/2020 05:20:00 PM EST ALCOHOLIC GASTRITIS,SVT,DEHYDRATION [facility] ALCOHOLIC GASTRITIS,SVT,DEHYDRATION Patient discharged. Outpatient Attender: OLIVIA WOODS APRN-KAE-Channing 05/30/2020 08:57:00 AM EDT PANCREATIC TUMOR [facility] PANCREATIC TUMOR Outpatient Attender: OLIVIA WOODS APRN-KAE-Channing 05/28/2020 02:18:00 PM EDT R29.890,E11.40,I10,K72.90,F10.10,F19.10 [facility] R29.890,E11.40,I10,K72.90,F10.10,F19.10 Outpatient Attender: OLIVIA LYNNE APRN-FNP-CReferrer: OLIVIA WOODS APRN-ASSISTANT HOUSEKEEPING MANAGER-Channing 05/28/2020 12:49:00 PM EDT - 05/28/2020 02:01:00 PM EDT [facility] Outpatient Attender: REENA PINA NP Physical Therapy 05/22/2020 0 3:15:00 PM EDT [facility] ([facility]) Outpatient Attender: SHRUTI Lo marco 03/12/2020 12:15:00 PM EDT [facility] ([facility]) Outpatient Attender: OLIVIA LYNNE CITC-VTA-XDrywyzus: OLIVIA BURROWSASSISTANT HOUSEKEEPING MANAGER-C 03/06/2020 01:42:00 PM EDT - 03/06/2020 02:39:00 PM EDT [facility] Outpatient Attender: OLIVIA BURROWSASSISTANT HOUSEKEEPING MANAGER-C 03/06/2020 01:28:00 PM EDT PAF [facility] PAF Outpatient Attender: OLIVIA WOODS APRN-ASSISTANT HOUSEKEEPING MANAGER-C 02/21/2020 03:15:00 PM EDT I48.0,E78.2,E11.65,I10 [facility] I48.0,E78.2,E11.65,I10 Outpatient Attender: OLIVIA LYNNE APRN-FNP-CReferrer: OLIVIA PERALESP-Channing 02/21/2020 02:23:00 PM EDT - 02/21/2020 03:45:00 PM EDT [facility] Outpatient 01/17/2020 05:49:00 AM EDT [facility] Outpatient 08/28/2019 06:47:00 PM EST [facility] Outpatient Attender: Mark Reyes MD 03/08/2019 02:08:00 PM EDT [facility] Functional Status Immunizations Vaccine Date Status Description Data Source(s) New in 2011. IIV4 07/17/2020 12:00:00 AM EST completed In [facility] IM Pres Free (0.5 mL dose) 07/17/2020 [facility] ospital Medications Medication Brand Name Start Date Product Form Dose Route Admi nistrative Instructions Pharmacy Instructions Status Indications Reaction Description Data Source(s) Insulin Glargine (Semglee Pen U-100 Insulin) 100 unit/mL (3 mL) insulin pen 07/20/2020 07:00:43 AM EST 32 UNIT active [facility] insulin lispro (HumaLOG) injection MEDIU M DOSE EATING INSULIN patients 1-16 Units [id number] 07/18/2020 12:00:00 PM EST U Subcutaneous active 1-16 Units, Subcutaneous, Three Times Daily-With Meals, First dose on Thu07/18/20 at 1200, For 30 days
Nursing MUST open the 'SQ Insulin Dosing Charts' Sidebar Report, or, the Patient Summary or Summary Report within the ED.
[facility] Medication administered onsite Diclofenac Sodium 0.01 MG/MG Topical Gel Diclofenac Sodium (VOLTAREN) 1 % gel 2 g Diclofenac Sodium (VOLTAREN) 1 % gel 2 g 07/18/2020 09:30:00 AM EST 2 g Topical completed 2 g, Topical, Once, Thu07/18/20 at 0930, For 1 dose
Apply to mid back where it hurts
[facility] Medication administered onsite Cyclobenzaprine hydrochloride 10 MG Oral Tablet cyclobenzaprine (FLEXERIL) tablet 10 mg cyclobenzaprine (FLEXERIL) tablet 10 mg 07/18/2020 09:30:00 AM EST 10 mg Oral completed 10 mg, Oral, O nce, Thu07/18/20 at 0930, For [address] [facility] Medication administered onsite pantoprazole 40 MG Delayed Release Oral Tablet pantoprazole (PROTONIX) EC tablet 40 mg pantoprazole (PROTONIX) EC tablet 40 mg 07/18/2020 09:00:[address] 40 mg Oral active 40 mg, Ora l, Daily Standard, First dose on Thu07/18/20 at 0900, For 30 days
Do not crush or chew
[facility] Medication administered onsite pantoprazole 40 MG Delayed Release Oral Tablet Pantoprazole Sodium 40 MG Oral Tablet Delayed Release (PROTONIX) Pantoprazole Sodium 40 MG Oral Tablet De layed Release (PROTONIX) 07/18/2020 12:00:00 AM EST 40 mg Oral active Take 1 tablet by mouth daily [facility] Cyclobenzaprine hydrochloride 10 MG Oral Tablet Cyclobenzaprine HCl 10 MG Oral Tablet (FLEXERIL) Cyclobenzaprine HCl 10 MG Oral Tablet (FLEXERIL) 07/18 12:00:00 AM EST 10 mg Oral active Take 1 tablet by mouth Three times daily as needed for Muscle spasms [facility] Diclofenac Sodium 0.01 MG/MG Topical Gel Diclofenac Sodium 1 % Transdermal Gel (VOLTAREN) Diclofenac Sodium 1 % Transdermal Gel (VOLTAREN) 07/18 12:00:00 AM EST 2 g Topical active Apply 2 g [address]ly daily [facility] sennosides, CORRECTION 8.6 MG Oral Tablet Sennosides 8.6 MG O ral Tablet (SENOKOT) Sennosides 8.6 MG Oral Tablet (SENOKOT) 07/18/2020 12:00:00 AM EST 8.6 mg Oral active Take 1 tablet by elvin th daily as needed for Constipation [facility] ferrous sulfate 325 MG Oral Tablet Ferrous Sulfate 325 (65 Fe) MG Oral Tablet Ferrous Sulfate 325 (65 Fe) MG Oral Tablet 07/18/2020 12:00:00 AM EST 325 mg Oral active Take 1 tablet by elvin th daily with breakfast [facility] Insulin Glargine 100 UNT/ML Injectable S olution [...] glucose more than 400 mg/dL: notify provider
[facility] Medication administered onsite Insulin Glargine 100 UNT/ML [...] glucose more than 400 mg/dL: notify provider
[facility] Medication administered onsite POLYETHYLENE GLYCOL 3350 59 MG/ML / Pota ssium Chloride 0.01 MEQ/ML / Sodium Bicarbonate 0.02 MEQ/ML / Sodium Chloride 0.025 MEQ/ML / sodium sulfate 0.04 MEQ/ML Oral Solution polyethylene glycol (GoLYTELY,NuLYTELY) suspension 4,000 mL polyethylene glycol (GoLYTELY,NuLYTELY) suspension 4,0 00 mL 07/16/2020 09:00:00 PM EST 4000 mL Oral completed 4,000 mL, Oral, Once, Thu07/16/20 at 2100, For [address] [facility] Medication administered onsite lidocaine (LIDODERM) 5 % patch 2 patch 5533-3419-80 0 10:45:00 AM EST 2 {patch} Transdermal active 2 patch, T ransdermal, Every 24 hours Standard (Daily), First dose on Thu07/16/20 at 1045, For 30 days
Apply to back pain12 hours on - 12 hours off
Time to remove patch: 9:[address] [facility] Medication administered onsite Oxycodone Hydrochloride 5 MG [...] only) require Pain Service consultation and approval.
[facility] Medication administered onsite Folic Acid 1 MG Oral Tablet folic acid (FOLVITE) table t 1 mg folic acid (FOLVITE) tablet 1 mg 07/16/2020 09:00:00 AM EST 1 mg Oral active 1 mg, Oral, Daily Standard, First dose on Thu07/16/20 at 0900, For [address] [facility] Medication administered onsite Thiamine 100 MG Oral Tablet thiamine (B-1) tablet 100 mg thiamine (B-1) tablet 100 mg 07/16/2020 09:00:00 AM EST 100 mg Oral active 100 mg, Oral, Daily Standard, First dose on Thu07/16/20 at 0900, For [address] [facility] Medication administered onsite Ramipril 5 MG Oral Capsule ramipril (ALTACE) capsule 5 mg ramipril (ALTACE) capsule 5 mg 07/16/2020 09:00:00 AM EST 5 mg Oral activ e 5 mg, Oral, Daily Standard, First dose on Thu07/16/20 at 0900, For 30 days
Check vital signs before administering
[facility] Medication administered onsite morphine sulfate (PF) injection 1 mg 8331-7076-50 07/16/2020 06:00: 00 AM EST 1 mg Intravenous completed 1 mg, In travenous, Once, Thu07/16/20 at 0600, For [address] [facility] Medication administered onsite gabapentin 300 MG Oral Capsule gabapentin (NEURONTIN) capsule 600 mg gabapentin (NEURONTIN) capsule 600 mg 07/15/2020 10:00:00 PM EST 600 mg Oral active 600 mg, Oral, Three Times D aily Standard, First dose on 07/15/20 at 2200, For [address] [facility] Medication administered onsite Metoprolol Tartrate 50 MG Oral Tablet metoprolol (LOPR ESSOR) tablet 50 mg metoprolol (LOPRESSOR) tablet 50 mg 07/15/2020 10:00:00 PM EST 50 mg Oral active 50 mg, Oral, 2 Times Daily, First dose on 07/15/20 at 2200, For [address] [facility] Medication administered onsite pantoprazole 4 MG/ML Injectable Solution pantoprazole (PROTONIX) injection 80 mg pantoprazole (PROTONIX) injection 80 mg 07/15/2020 09:00:00 PM EST 80 mg Intravenous completed 80 mg, Intrav enous, Once, 07/15/20 at 2100, For [address] [facility] Medication administered onsite pantoprazole (PROTONIX) 0.4 mg/mL in sodium chloride 0.9 % 2 50 mL infusion 07/15/2020 09:00:00 PM EST 8 mg/h Intravenous aborted 8 mg/hr (20 mL/hr), Intravenous, at 20 mL/hr, Continuous, Starting 07/15/20 at 2100, For 30 days
Indication: Active GI bleed [facility] Medication administered onsite octreotide (SANDOSTATIN) 5 mcg/mL in sodium chloride 0.9 % 2 50 mL infusion 07/15/2020 09:00:00 PM EST 50 ug/h Intravenous aborted 50 mcg/hr (10 mL/hr), Intravenous, at 10 mL/hr, Continuous, Starting 07/15/20 at 2100, For [address] [facility] Medication administered onsite insulin lispro (HUMALOG) injection LOW DOSE NPO INSULI N patients 1-5 Units [id number] 07/15/2020 08:30:00 PM EST U Subcutaneous aborted 1-5 Units, Subcutaneous, Every 4 hours, First dose on 07/15/20 at 2030, For 30 days
Nursing MUST open the 'SQ Insulin Dosing Charts' Sidebar Report, or, the Patient Summary or Summary Report within the ED.
[facility] Medication administered onsite dextrose 5 %-0.9 % sodium chloride infusion 3405-9275-08 07/15/2020 08:30:00 PM EST Intravenous aborted at 1 00 mL/hr, Intravenous, Continuous, Starting 07/15/20 at 2029, For [address] [facility] Medication administered onsite Glucose 0.417 MG/MG Oral Gel glucose (GLUTOSE) 40 % or al gel 15 g glucose (GLUTOSE) 40 % oral gel 15 g 07/15/2020 08:25:47 PM EST 15 g Oral active 15 g, Oral, PRN, Low blood s ugar, for gluose 55-69 mg/dl and able to take PO, Starting 07/15/20 at 2024, For [address] [facility] Medication administered onsite Glucagon 1 MG Injection glucagon (human recombinant) ( GLUCAGEN) injection 1 mg glucagon (human recombinant) (GLUCAGEN) injection 1 mg 07/15/2020 08:25:47 PM EST 1 mg Intramuscular active 1 mg, Intramuscular, PRN, for glucose <55 without IV access, Starting 07/15/20 at 2024, For [address] [facility] Medication administered onsite dextrose 50 % IV solution 25 mL 7437-1482-01 07/15/2020 08:25:[address] 25 mL Intravenous active 25 mL, Intrav enous, PRN, Other, blood glucose <55, Starting 07/15/20 at 2024, For 30 days
Not for midline administration.
[facility] Medication administered onsite ondansetron (ZOFRAN) injection 4 mg [id number] 07/15/2020 08:24:2 4 PM EST 4 mg Intravenous active 4 mg, In travenous, Every 8 hours PRN, Nausea, Vomiting, Starting 07/15/20 at 2024, For [address] [facility] Medication administered onsite morphine sulfate (PF) injection 2 mg 8977-9550-02 07/15/2020 08:19: 09 PM EST 2 mg Intravenous active 2 mg, In travenous, Every 4 hours PRN, Severe Pain (Pain Scale Score 7-10), Starting 07/15/20 at 2019, For [address] [facility] Medication administered onsite influenza vac split quad (FLUARIX) injection 6 months and ol deysi 0.5 mL [id number] 07/15/2020 07:31:01 PM EST 0.5 mL Intramuscular complet ed 0.5 mL, Intramuscular, Give Now, Starting [place] 07/15/20 at 1931, For [address] [facility] Medication administered onsite Ramipril 5 MG Oral Capsule Ramipril 07/14/2020 12:15:18 AM EST 5 MG active [facility] Ramipril 5 MG Oral Capsule Ramipril 07/14/2020 12:15:18 AM EST 5 MG [facility] Pen Needle, Diabetic 07/14/2020 12:15:09 AM EST 1 EACH [facility] Pen Needle, Diabetic 07/14/2020 12:15:09 AM EST 1 EACH [facility] Insulin Glargine Insulin Glargine (Basag lar Kwikpen U-100 Insulin) 100 unit/mL (3 mL) insulin pen Insulin Glargine (Basaglar Kwikpen U-100 Insulin) 100 unit/mL (3 mL) insulin pen 05/28/2020 04:45:29 PM EDT 32 UNIT ac [facility] Insulin Glargine Insulin Glargine (Basag lar Kwikpen U-100 Insulin) 100 unit/mL (3 mL) insulin pen Insulin Glargine (Basaglar Kwikpen U-100 Insulin) 100 unit/mL (3 mL) insulin pen 05/28/2020 04:45:29 PM EDT 32 UNIT ac [facility] Insulin Glargine Insulin Glargine (Basag lar Kwikpen U-100 Insulin) 100 unit/mL (3 mL) insulin pen Insulin Glargine (Basaglar Kwikpen U-100 Insulin) 100 unit/mL (3 mL) insulin pen 05/28/2020 04:45:29 PM EDT 32 UNIT co mpleted [facility] Thiamine 100 MG Oral Tablet Thiamine Hcl (Vitamin B1) Thiami ne Hcl (Vitamin B1) 05/28/2020 02:17:06 PM EDT 100 MG active [facility] Thiamine 100 MG Oral Tablet Thiamine Hcl (Vitamin B1) Thiami ne Hcl (Vitamin B1) 05/28/2020 02:17:06 PM EDT 100 MG active [facility] Thiamine 100 MG Oral Tablet Thiamine Hcl (Vitamin B1) Thiami ne Hcl (Vitamin B1) 05/28/2020 02:17:06 PM EDT 100 MG active [facility] Pen Needle, Diabetic 05/28/2020 02:17:01 PM EDT 1 EACH active [facility] Pen Needle, Diabetic 05/28/2020 02:17:01 PM EDT 1 EACH completed [facility] Pen Needle, Diabetic 05/28/2020 02:17:01 PM EDT 1 EACH completed [facility] pantoprazole 40 MG Delayed Release Oral Tablet Pantoprazole Pantoprazole 05/28/2020 02:16:56 PM EDT 40 MG active [facility] pantoprazole 40 MG Delayed Release Oral Tablet Pantoprazole Pantoprazole 05/28/2020 02:16:56 PM EDT 40 MG active [facility] pantoprazole 40 MG Delayed Release Oral Tablet Pantoprazole Pantoprazole 05/28/2020 02:16:56 PM EDT 40 MG active [facility] Metoprolol Tartrate 100 MG Oral Tablet Metoprolol Tartrate 0 05/28/2020 02:16:43 PM EDT [address] [facility] [place] Metoprolol Tartrate 100 MG Oral Tablet Metoprolol Tartrate 0 05/28/2020 02:16:43 PM EDT [address] [facility] [place] Metoprolol Tartrate 100 MG Oral Tablet Metoprolol Tartrate 0 05/28/2020 02:16:43 PM EDT [address] [facility] [place] Insulin Lispro (Admelog U-100 Insulin Lispro) 100 unit/mL so lution 05/28/2020 02:16:27 PM EDT 1 sliding scale dose active [facility] Insulin Lispro (Admelog U-100 Insulin Lispro) 100 unit/mL so lution 05/28/2020 02:16:27 PM EDT 1 sliding scale dose active [facility] Insulin Lispro (Admelog U-100 Insulin Lispro) 100 unit/mL so lution 05/28/2020 02:16:27 PM EDT 1 sliding scale dose active [facility] 3 ML Insulin Glargine 100 UNT/ML Pen Inj juan Insulin Glargine (Lantus Solostar U-100 Insulin) 100 unit/mL (3 mL) insulin pen Insulin Glargine (Lantus Solostar U-100 Insulin) 100 unit/mL (3 mL) insulin pen 05/28/2020 02:14:54 PM EDT 32 UNIT completed [facility] 3 ML Insulin Glargine 100 UNT/ML Pen Inj juan Insulin Glargine (Lantus Solostar U-100 Insulin) 100 unit/mL (3 mL) insulin pen Insulin Glargine (Lantus Solostar U-100 Insulin) 100 unit/mL (3 mL) insulin pen 05/28/2020 02:14:54 PM EDT 32 UNIT completed [facility] 3 ML Insulin Glargine 100 UNT/ML Pen Inj juan Insulin Glargine (Lantus Solostar U-100 Insulin) 100 unit/mL (3 mL) insulin pen Insulin Glargine (Lantus Solostar U-100 Insulin) 100 unit/mL (3 mL) insulin pen 05/28/2020 02:14:54 PM EDT 32 UNIT completed [facility] Insulin Syr/Ndl U100 Half Hiram (Bd Insul in Syringe Half Unit) 0.3 mL 31 gauge x 5/16" syringe 05/28/2020 02:14:19 PM EDT 0 act [facility] Insulin Syr/Ndl U100 Half Hiram (Bd Insul in Syringe Half Unit) 0.3 mL 31 gauge x 5/16" syringe 05/28/2020 02:14:19 PM EDT 0 act [facility] Insulin Syr/Ndl U100 Half Hiram (Bd Insul in Syringe Half Unit) 0.3 mL 31 gauge x 5/16" syringe 05/28/2020 02:14:19 PM EDT 0 act rhett [facility] gabapentin 400 MG Oral Capsule Gabapentin Gabapentin 2019 02:13:17 PM EDT 600 MG [facility] gabapentin 400 MG Oral Capsule Gabapentin Gabapentin 2019 02:13:17 PM EDT 600 MG [facility] gabapentin 400 MG Oral Capsule Gabapentin Gabapentin 2019 02:13:17 PM EDT 600 MG [facility] Folic Acid 1 MG Oral Tablet Folic Acid 05/28/2020 02:13:10 PM EDT 1 MG [facility] Folic Acid 1 MG Oral Tablet Folic Acid 05/28/2020 02:13:10 PM EDT 1 MG [facility] Folic Acid 1 MG Oral Tablet Folic Acid 05/28/2020 02:13:10 PM EDT 1 MG [facility] Blood Sugar Diagnostic (Ge100 Blood Glucose Test Strip) stri p 05/28/2020 02:13:04 PM EDT 1 EACH [facility] Blood Sugar Diagnostic (Ge100 Blood Glucose Test Strip) stri p 05/28/2020 02:13:04 PM EDT 1 EACH [facility] Blood Sugar Diagnostic (Ge100 Blood Glucose Test Strip) stri p 05/28/2020 02:13:04 PM EDT 1 EACH [facility] atorvastatin 80 MG Oral Tablet Atorvastatin Atorvastatin 05/28/2020 02:12:57 PM EDT 80 MG [facility] atorvastatin 80 MG Oral Tablet Atorvastatin Atorvastatin 05/28/2020 02:12:57 PM EDT 80 MG [facility] atorvastatin 80 MG Oral Tablet Atorvastatin Atorvastatin 05/28/2020 02:12:57 PM EDT 80 MG [facility] Aspirin 81 MG Delayed Release Oral Tablet Aspirin 05/28/2020 0 2:12:53 PM EDT 81 MG [facility] Aspirin 81 MG Delayed Release Oral Tablet Aspirin 05/28/2020 0 2:12:53 PM EDT 81 MG [facility] Aspirin 81 MG Delayed Release Oral Tablet Aspirin 05/28/2020 0 2:12:53 PM EDT 81 MG [facility] 3 ML Insulin Glargine 100 UNT/ML Pen Inj juan Insulin Glargine (Lantus Solostar U-100 Insulin) 100 unit/mL (3 mL) insulin pen Insulin Glargine (Lantus Solostar U-100 Insulin) 100 unit/mL (3 mL) insulin pen 05/28/2020 01:18:13 PM EDT 32 UNIT completed [facility] 3 ML Insulin Glargine 100 UNT/ML Pen Inj juan Insulin Glargine (Lantus Solostar U-100 Insulin) 100 unit/mL (3 mL) insulin pen Insulin Glargine (Lantus Solostar U-100 Insulin) 100 unit/mL (3 mL) insulin pen 05/28/2020 01:18:13 PM EDT 32 UNIT completed [facility] 3 ML Insulin Glargine 100 UNT/ML Pen Inj juan Insulin Glargine (Lantus Solostar U-100 Insulin) 100 unit/mL (3 mL) insulin pen Insulin Glargine (Lantus Solostar U-100 Insulin) 100 unit/mL (3 mL) insulin pen 05/28/2020 01:18:13 PM EDT 32 UNIT completed [facility] 3 ML Insulin Glargine 100 UNT/ML Pen Inj juan Insulin Glargine (Lantus Solostar U-100 Insulin) 100 unit/mL (3 mL) insulin pen Insulin Glargine (Lantus Solostar U-100 Insulin) 100 unit/mL (3 mL) insulin pen 05/28/2020 01:18:13 PM EDT 32 UNIT completed [facility] Blood-Glucose Meter 03/22/2020 08:18:17 AM EDT 1 EACH active [facility] Blood-Glucose Meter 03/22/2020 08:18:17 AM EDT 1 EACH active [facility] Blood-Glucose Meter 03/22/2020 08:18:17 AM EDT 1 EACH active [facility] Blood-Glucose Meter 03/22/2020 08:18:17 AM EDT 1 EACH active [facility] PPD- TB Intradermal Test 03/12/2020 12:00:00 AM EDT completed [facility] ([facility], [facility]) Medication administered onsite Insulin Glargine Insulin Glargine (Basag lar Kwikpen U-100 Insulin) 100 unit/mL (3 mL) insulin pen Insulin Glargine (Basaglar Kwikpen U-100 Insulin) 100 unit/mL (3 mL) insulin pen 03/08/2020 07:15:03 AM EDT 45 UNIT co mpleted [facility] Insulin Glargine Insulin Glargine (Basag lar Kwikpen U-100 Insulin) 100 unit/mL (3 mL) insulin pen Insulin Glargine (Basaglar Kwikpen U-100 Insulin) 100 unit/mL (3 mL) insulin pen 03/08/2020 07:15:03 AM EDT 45 UNIT co mpleted [facility] Insulin Glargine Insulin Glargine (Basag lar Kwikpen U-100 Insulin) 100 unit/mL (3 mL) insulin pen Insulin Glargine (Basaglar Kwikpen U-100 Insulin) 100 unit/mL (3 mL) insulin pen 03/08/2020 07:15:03 AM EDT 45 UNIT co mpleted [facility] Insulin Glargine Insulin Glargine (Basag lar Kwikpen U-100 Insulin) 100 unit/mL (3 mL) insulin pen Insulin Glargine (Basaglar Kwikpen U-100 Insulin) 100 unit/mL (3 mL) insulin pen 03/08/2020 07:15:03 AM EDT 45 UNIT co mpleted [facility] Insulin Glargine Insulin Glargine (Basag lar Kwikpen U-100 Insulin) 100 unit/mL (3 mL) insulin pen Insulin Glargine (Basaglar Kwikpen U-100 Insulin) 100 unit/mL (3 mL) insulin pen 03/08/2020 07:13:48 AM EDT 35 UNIT co mpleted [facility] Insulin Glargine Insulin Glargine (Basag lar Kwikpen U-100 Insulin) 100 unit/mL (3 mL) insulin pen Insulin Glargine (Basaglar Kwikpen U-100 Insulin) 100 unit/mL (3 mL) insulin pen 03/08/2020 07:13:48 AM EDT 35 UNIT co mpleted [facility] Insulin Glargine Insulin Glargine (Basag lar Kwikpen U-100 Insulin) 100 unit/mL (3 mL) insulin pen Insulin Glargine (Basaglar Kwikpen U-100 Insulin) 100 unit/mL (3 mL) insulin pen 03/08/2020 07:13:48 AM EDT 35 UNIT co mpleted [facility] Insulin Glargine Insulin Glargine (Basag lar Kwikpen U-100 Insulin) 100 unit/mL (3 mL) insulin pen Insulin Glargine (Basaglar Kwikpen U-100 Insulin) 100 unit/mL (3 mL) insulin pen 03/08/2020 07:13:48 AM EDT 35 UNIT co mpleted [facility] gabapentin 400 MG Oral Capsule Gabapentin Gabapentin 2019 02:29:16 PM EDT 400 MG active [facility] gabapentin 400 MG Oral Capsule Gabapentin Gabapentin 2019 02:29:16 PM EDT 400 MG completed [facility] gabapentin 400 MG Oral Capsule Gabapentin Gabapentin 2019 02:29:16 PM EDT 400 MG completed [facility] gabapentin 400 MG Oral Capsule Gabapentin Gabapentin 2019 02:29:16 PM EDT 400 MG active [facility] gabapentin 400 MG Oral Capsule Gabapentin Gabapentin 2019 02:29:16 PM EDT 400 MG completed [facility] Insulin Glargine Insulin Glargine (Basag lar Kwikpen U-100 Insulin) 100 unit/mL (3 mL) insulin pen Insulin Glargine (Basaglar Kwikpen U-100 Insulin) 100 unit/mL (3 mL) insulin pen 02/24/2020 10:13:21 AM EDT 35 UNIT co mpleted [facility] Insulin Glargine Insulin Glargine (Basag lar Kwikpen U-100 Insulin) 100 unit/mL (3 mL) insulin pen Insulin Glargine (Basaglar Kwikpen U-100 Insulin) 100 unit/mL (3 mL) insulin pen 02/24/2020 10:13:21 AM EDT 35 UNIT co mpleted [facility] Insulin Glargine Insulin Glargine (Basag lar Kwikpen U-100 Insulin) 100 unit/mL (3 mL) insulin pen Insulin Glargine (Basaglar Kwikpen U-100 Insulin) 100 unit/mL (3 mL) insulin pen 02/24/2020 10:13:21 AM EDT 35 UNIT co mpleted [facility] Insulin Glargine Insulin Glargine (Basag lar Kwikpen U-100 Insulin) 100 unit/mL (3 mL) insulin pen Insulin Glargine (Basaglar Kwikpen U-100 Insulin) 100 unit/mL (3 mL) insulin pen 02/24/2020 10:13:21 AM EDT 35 UNIT co mpleted [facility] Insulin Glargine Insulin Glargine 02/24/2020 10:13:21 AM EDT 35 UNIT active [facility] Insulin Syr/Ndl U100 Half Hiram (Bd Insul in Syringe Half Unit) 0.3 mL 31 gauge x 5/16" syringe 02/24/2020 10:11:27 AM EDT 0 act rhett [facility] Insulin Syr/Ndl U100 Half Hiram (Bd Insul in Syringe Half Unit) 0.3 mL 31 gauge x 5/16" syringe 02/24/2020 10:11:27 AM EDT 0 com [facility] Insulin Syr/Ndl U100 Half Hiram 02/24/2020 10:11:[address] [facility] Insulin Syr/Ndl U100 Half Hiram (Bd Insul in Syringe Half Unit) 0.3 mL 31 gauge x 5/16" syringe 02/24/2020 10:11:27 AM EDT 0 com [facility] Insulin Syr/Ndl U100 Half Hiram (Bd Insul in Syringe Half Unit) 0.3 mL 31 gauge x 5/16" syringe 02/24/2020 10:11:27 AM EDT 0 com [facility] Insulin Lispro 02/24/2020 10:09:38 AM EDT 1 sliding scale d ose active [facility] Insulin Lispro (Admelog U-100 Insulin Lispro) 100 unit/mL so lution 02/24/2020 10:09:38 AM EDT 1 sliding scale dose completed [facility] Insulin Lispro (Admelog U-100 Insulin Lispro) 100 unit/mL so lution 02/24/2020 10:09:38 AM EDT 1 sliding scale dose completed [facility] Insulin Lispro (Admelog U-100 Insulin Lispro) 100 unit/mL so lution 02/24/2020 10:09:38 AM EDT 1 sliding scale dose active [facility] Insulin Lispro (Admelog U-100 Insulin Lispro) 100 unit/mL so lution 02/24/2020 10:09:38 AM EDT 1 sliding scale dose completed [facility] Insulin Lispro (Admelog Solostar U-100 Insulin) 100 unit/mL insulin pen 02/22/2020 05:00:05 PM EDT 5 UNIT completed [facility] Insulin Lispro (Admelog Solostar U-100 Insulin) 100 unit/mL insulin pen 02/22/2020 05:00:05 PM EDT 5 UNIT completed [facility] Insulin Lispro 02/22/2020 05:00:05 PM EDT 5 UNIT c ompleted [facility] Insulin Lispro (Admelog Solostar U-100 Insulin) 100 unit/mL insulin pen 02/22/2020 05:00:05 PM EDT 5 UNIT completed [facility] Insulin Lispro (Admelog Solostar U-100 Insulin) 100 unit/mL insulin pen 02/22/2020 05:00:05 PM EDT 5 UNIT completed [facility] Insulin Lispro (Admelog Solostar U-100 Insulin) 100 unit/mL insulin pen 02/22/2020 04:53:44 PM EDT 5 UNIT completed [facility] Insulin Lispro 02/22/2020 04:53:44 PM EDT 5 UNIT c ompleted [facility] Insulin Lispro (Admelog Solostar U-100 Insulin) 100 unit/mL insulin pen 02/22/2020 04:53:44 PM EDT 5 UNIT completed [facility] Insulin Lispro (Admelog Solostar U-100 Insulin) 100 unit/mL insulin pen 02/22/2020 04:53:44 PM EDT 5 UNIT completed [facility] Insulin Lispro (Admelog Solostar U-100 Insulin) 100 unit/mL insulin pen 02/22/2020 04:53:44 PM EDT 5 UNIT completed [facility] Ramipril 5 MG Oral Capsule Ramipril 02/21/2020 03:23:29 PM EDT 5 MG completed [facility] Ramipril 5 MG Oral Capsule Ramipril 02/21/2020 03:23:29 PM EDT 5 MG active [facility] Ramipril 5 MG Oral Capsule Ramipril 02/21/2020 03:23:29 PM EDT 5 MG completed [facility] Ramipril 5 MG Oral Capsule Ramipril 02/21/2020 03:23:29 PM EDT 5 MG completed [facility] Ramipril 5 MG Oral Capsule Ramipril 02/21/2020 03:23:29 PM EDT 5 MG completed [facility] Ramipril 5 MG Oral Capsule Ramipril 02/21/2020 03:23:29 PM EDT 5 MG completed [facility] Thiamine 100 MG Oral Tablet Thiamine Hcl (Vitamin B1) Thiami ne Hcl (Vitamin B1) 02/21/2020 03:20:30 PM EDT 100 MG active [facility] Thiamine 100 MG Oral Tablet Thiamine Hcl (Vitamin B1) Thiami ne Hcl (Vitamin B1) 02/21/2020 03:20:30 PM EDT 100 MG completed [facility] Thiamine 100 MG Oral Tablet Thiamine Hcl (Vitamin B1) Thiami ne Hcl (Vitamin B1) 02/21/2020 03:20:30 PM EDT 100 MG completed [facility] Thiamine 100 MG Oral Tablet Thiamine Hcl (Vitamin B1) Thiami ne Hcl (Vitamin B1) 02/21/2020 03:20:30 PM EDT 100 MG completed [facility] Thiamine 100 MG Oral Tablet Thiamine Hcl (Vitamin B1) Thiami ne Hcl (Vitamin B1) 02/21/2020 03:20:30 PM EDT 100 MG active [facility] Thiamine 100 MG Oral Tablet Thiamine Hcl (Vitamin B1) Thiami ne Hcl (Vitamin B1) 02/21/2020 03:20:30 PM EDT 100 MG active [facility] Pen Needle, Diabetic 02/21/2020 03:19:05 PM EDT 1 EACH active [facility] Pen Needle, Diabetic 02/21/2020 03:19:05 PM EDT 1 EACH completed [facility] Pen Needle, Diabetic 02/21/2020 03:19:05 PM EDT 1 EACH active [facility] Pen Needle, Diabetic 02/21/2020 03:19:05 PM EDT 1 EACH completed [facility] Pen Needle, Diabetic 02/21/2020 03:19:05 PM EDT 1 EACH active [facility] Pen Needle, Diabetic 02/21/2020 03:19:05 PM EDT 1 EACH completed [facility] pantoprazole 40 MG Delayed Release Oral Tablet Pantoprazole Pantoprazole 02/21/2020 03:18:58 PM EDT 40 MG completed [facility] pantoprazole 40 MG Delayed Release Oral Tablet Pantoprazole Pantoprazole 02/21/2020 03:18:58 PM EDT 40 MG completed [facility] pantoprazole 40 MG Delayed Release Oral Tablet Pantoprazole Pantoprazole 02/21/2020 03:18:58 PM EDT 40 MG completed [facility] pantoprazole 40 MG Delayed Release Oral Tablet Pantoprazole Pantoprazole 02/21/2020 03:18:58 PM EDT 40 MG active [facility] pantoprazole 40 MG Delayed Release Oral Tablet Pantoprazole Pantoprazole 02/21/2020 03:18:58 PM EDT 40 MG active [facility] pantoprazole 40 MG Delayed Release Oral Tablet Pantoprazole Pantoprazole 02/21/2020 03:18:58 PM EDT 40 MG active [facility] Metoprolol Tartrate 100 MG Oral Tablet Metoprolol Tartrate 0 02/21/2020 03:18:45 PM EDT 100 MG completed [facility] Metoprolol Tartrate 100 MG Oral Tablet Metoprolol Tartrate 0 02/21/2020 03:18:45 PM EDT 100 MG completed [facility] Metoprolol Tartrate 100 MG Oral Tablet Metoprolol Tartrate 0 02/21/2020 03:18:45 PM EDT [address] [facility] [place] Metoprolol Tartrate 100 MG Oral Tablet Metoprolol Tartrate 0 02/21/2020 03:18:45 PM EDT [address] [facility] [place] Metoprolol Tartrate 100 MG Oral Tablet Metoprolol Tartrate 0 02/21/2020 03:18:45 PM EDT 100 MG completed [facility] Metoprolol Tartrate 100 MG Oral Tablet Metoprolol Tartrate 0 02/21/2020 03:18:45 PM EDT [address] [facility] [place] 3 ML Insulin Glargine 100 UNT/ML Pen Injector Insulin Glargi ne 02/21/2020 03:18:31 PM EDT 64 UNIT completed [facility] 3 ML Insulin Glargine 100 UNT/ML Pen Inj juan Insulin Glargine (Lantus Solostar U-100 Insulin) 100 unit/mL (3 mL) insulin pen Insulin Glargine (Lantus Solostar U-100 Insulin) 100 unit/mL (3 mL) insulin pen 02/21/2020 03:18:31 PM EDT 64 UNIT completed [facility] 3 ML Insulin Glargine 100 UNT/ML Pen Inj juan Insulin Glargine (Lantus Solostar U-100 Insulin) 100 unit/mL (3 mL) insulin pen Insulin Glargine (Lantus Solostar U-100 Insulin) 100 unit/mL (3 mL) insulin pen 02/21/2020 03:18:31 PM EDT 64 UNIT completed [facility] 3 ML Insulin Glargine 100 UNT/ML Pen Inj juan Insulin Glargine (Lantus Solostar U-100 Insulin) 100 unit/mL (3 mL) insulin pen Insulin Glargine (Lantus Solostar U-100 Insulin) 100 unit/mL (3 mL) insulin pen 02/21/2020 03:18:31 PM EDT 64 UNIT completed [facility] 3 ML Insulin Glargine 100 UNT/ML Pen Injector Insulin Glargi ne 02/21/2020 03:18:31 PM EDT 64 UNIT active [facility] 3 ML Insulin Glargine 100 UNT/ML Pen Inj juan Insulin Glargine (Lantus Solostar U-100 Insulin) 100 unit/mL (3 mL) insulin pen Insulin Glargine (Lantus Solostar U-100 Insulin) 100 unit/mL (3 mL) insulin pen 02/21/2020 03:18:31 PM EDT 64 UNIT completed [facility] Insulin Aspart U-100 (Novolog Penfill U-100 Insulin) 100 uni t/mL cartridge 02/21/2020 03:17:50 PM EDT 1 sliding scale dose comp leted [facility] Insulin Aspart U-100 (Novolog Penfill U-100 Insulin) 100 uni t/mL cartridge 02/21/2020 03:17:50 PM EDT 1 sliding scale dose comp leted [facility] Insulin Aspart U-100 02/21/2020 03:17:50 PM EDT 1 slidin g scale dose active [facility] Insulin Aspart U-100 (Novolog Penfill U-100 Insulin) 100 uni t/mL cartridge 02/21/2020 03:17:50 PM EDT [facility] 02/21/2020 03:17:50 PM EDT 1 slidin g scale dose completed [facility] Insulin Aspart U-100 (Novolog Penfill U-100 Insulin) 100 uni t/mL cartridge 02/21/2020 03:17:50 PM EDT 1 sliding [facility] F[facility] 1 MG Oral Tablet Folic Acid 02/21/2020 03:17:38 PM EDT 1 MG completed [facility] Folic Acid 1 MG Oral Tablet Folic Acid 02/21/2020 03:17:38 PM EDT 1 MG completed [facility] Folic Acid 1 MG Oral Tablet Folic Acid 02/21/2020 03:17:38 PM EDT 1 MG active [facility] Folic Acid 1 MG Oral Tablet Folic Acid 02/21/2020 03:17:38 PM EDT 1 MG active [facility] Folic Acid 1 MG Oral Tablet Folic Acid 02/21/2020 03:17:38 PM EDT 1 MG active [facility] Folic Acid 1 MG Oral Tablet Folic Acid 02/21/2020 03:17:38 PM EDT 1 MG completed [facility] Blood Sugar Diagnostic (Ge100 Blood Glucose Test Strip) stri p 02/21/2020 03:16:25 PM EDT 1 EACH completed [facility] Blood Sugar Diagnostic (Ge100 Blood Glucose Test Strip) stri p 02/21/2020 03:16:25 PM EDT 1 EACH [facility] Blood Sugar Diagnostic 02/21/2020 03:16:25 PM EDT 1 EACH active [facility] Blood Sugar Diagnostic (Ge100 Blood Glucose Test Strip) stri p 02/21/2020 03:16:25 PM EDT 1 EACH [facility] Blood Sugar Diagnostic (Ge100 Blood Glucose Test Strip) stri p 02/21/2020 03:16:25 PM EDT 1 EACH active [facility] Blood Sugar Diagnostic 02/21/2020 03:16:25 PM EDT 1 EACH active [facility] atorvastatin 80 MG Oral Tablet Atorvastatin Atorvastatin 02/21/2020 03:16:18 PM EDT 80 MG completed [facility] atorvastatin 80 MG Oral Tablet Atorvastatin Atorvastatin 02/21/2020 03:16:18 PM EDT [address] [facility] [place] atorvastatin 80 MG Oral Tablet Atorvastatin Atorvastatin 02/21/2020 03:16:18 PM EDT 80 MG completed [facility] atorvastatin 80 MG Oral Tablet Atorvastatin Atorvastatin 02/21/2020 03:16:18 PM EDT 80 MG completed [facility] atorvastatin 80 MG Oral Tablet Atorvastatin Atorvastatin 02/21/2020 03:16:18 PM EDT [address] [facility] [place] atorvastatin 80 MG Oral Tablet Atorvastatin Atorvastatin 02/21/2020 03:16:18 PM EDT [address] [facility] Aspirin 81 MG Delayed Release Oral Table t Aspirin (Aspir-81) 81 mg tablet,delayed release (DR/EC) Aspirin (Aspir-81) 81 mg tablet,delayed release (DR/EC) 02/21/2020 03:16:11 PM EDT 81 MG completed [facility] Aspirin 81 MG Delayed Release Oral Table t Aspirin (Aspir-81) 81 mg tablet,delayed release (DR/EC) Aspirin (Aspir-81) 81 mg tablet,delayed release (DR/EC) 02/21/2020 03:16:11 PM EDT 81 MG active [facility] Aspirin 81 MG Delayed Release Oral Tablet Aspirin 02/21/2020 0 3:16:11 PM EDT 81 MG active [facility] Aspirin 81 MG Delayed Release Oral Tablet Aspirin 02/21/2020 0 3:16:11 PM EDT 81 MG active [facility] Aspirin 81 MG Delayed Release Oral Table t Aspirin (Aspir-81) 81 mg tablet,delayed release (DR/EC) Aspirin (Aspir-81) 81 mg tablet,delayed release (DR/EC) 02/21/2020 03:16:11 PM EDT 81 MG completed [facility] Aspirin 81 MG Delayed Release Oral Table t Aspirin (Aspir-81) 81 mg tablet,delayed release (DR/EC) Aspirin (Aspir-81) 81 mg tablet,delayed release (DR/EC) 02/21/2020 03:16:11 PM EDT 81 MG completed [facility] Insulin Aspart U-100 02/21/2020 02:48:18 PM EDT 1 slidin g scale dose completed [facility] Insulin Aspart U-100 02/21/2020 02:48:18 PM EDT 1 slidin g scale dose completed [facility] Insulin Aspart U-100 (Novolog Penfill U-100 Insulin) 100 uni t/mL cartridge 02/21/2020 02:48:18 PM EDT 1 sliding scale dose comp leted [facility] Insulin Aspart U-100 (Novolog Penfill U-100 Insulin) 100 uni t/mL cartridge 02/21/2020 02:48:18 PM EDT 1 sliding scale dose comp leted [facility] Insulin Aspart U-100 (Novolog Penfill U-100 Insulin) 100 uni t/mL cartridge 02/21/2020 02:48:18 PM EDT 1 sliding scale dose comp leted [facility] Insulin Aspart U-100 (Novolog Penfill U-100 Insulin) 100 uni t/mL cartridge 02/21/2020 02:48:18 PM EDT 1 sliding scale dose comp [facility] Metoprolol Tartrate 100 MG Oral Tablet Metoprolol Tartrate 0 09/28/2019 01:54:46 PM EST 100 MG completed [facility] Metoprolol Tartrate 100 MG Oral Tablet Metoprolol Tartrate 0 09/28/2019 01:54:46 PM EST 100 MG completed [facility] Metoprolol Tartrate 100 MG Oral Tablet Metoprolol Tartrate 0 09/28/2019 01:54:46 PM EST 100 MG completed [facility] Metoprolol Tartrate 100 MG Oral Tablet Metoprolol Tartrate 0 09/28/2019 01:54:46 PM EST 100 MG completed [facility] Metoprolol Tartrate 100 MG Oral Tablet Metoprolol Tartrate 0 09/28/2019 01:54:46 PM EST 100 MG completed [facility] Metoprolol Tartrate 100 MG Oral Tablet Metoprolol Tartrate 0 09/28/2019 01:54:46 PM EST 100 MG completed [facility] Metoprolol Tartrate 100 MG Oral Tablet Metoprolol Tartrate 0 09/27/2019 09:31:55 AM EST 50 MG completed [facility] Metoprolol Tartrate 100 MG Oral Tablet Metoprolol Tartrate 0 09/27/2019 09:31:55 AM EST 50 MG completed [facility] Metoprolol Tartrate 100 MG Oral Tablet Metoprolol Tartrate 0 09/27/2019 09:31:55 AM EST 50 MG completed [facility] Metoprolol Tartrate 100 MG Oral Tablet Metoprolol Tartrate 0 09/27/2019 09:31:55 AM EST 50 MG completed [facility] Metoprolol Tartrate 100 MG Oral Tablet Metoprolol Tartrate 0 09/27/2019 09:31:55 AM EST 50 MG completed [facility] [facility] Metoprolol Tartrate 100 MG Oral Tablet Metoprolol Tartrate 0 09/27/2019 09:31:55 AM EST 50 MG completed [facility] 3 ML Insulin Glargine 100 UNT/ML Pen Injector Insulin Glargi ne 09/27/2019 09:31:49 AM EST 64 UNIT completed [facility] 3 ML Insulin Glargine 100 UNT/ML Pen Injector Insulin Glargi ne 09/27/2019 09:31:49 AM EST 64 UNIT completed [facility] 3 ML Insulin Glargine 100 UNT/ML Pen Inj juan Insulin Glargine (Lantus Solostar U-100 Insulin) 100 unit/mL (3 mL) insulin pen Insulin Glargine (Lantus Solostar U-100 Insulin) 100 unit/mL (3 mL) insulin pen 09/27/2019 09:31:49 AM EST 64 UNIT completed [facility] 3 ML Insulin Glargine 100 UNT/ML Pen Inj juan Insulin Glargine (Lantus Solostar U-100 Insulin) 100 unit/mL (3 mL) insulin pen Insulin Glargine (Lantus Solostar U-100 Insulin) 100 unit/mL (3 mL) insulin pen 09/27/2019 09:31:49 AM EST 64 UNIT completed [facility] 3 ML Insulin Glargine 100 UNT/ML Pen Inj juan Insulin Glargine (Lantus Solostar U-100 Insulin) 100 unit/mL (3 mL) insulin pen Insulin Glargine (Lantus Solostar U-100 Insulin) 100 unit/mL (3 mL) insulin pen 09/27/2019 09:31:49 AM EST 64 UNIT completed [facility] 3 ML Insulin Glargine 100 UNT/ML Pen Inj juan Insulin Glargine (Lantus Solostar U-100 Insulin) 100 unit/mL (3 mL) insulin pen Insulin Glargine (Lantus Solostar U-100 Insulin) 100 unit/mL (3 mL) insulin pen 09/27/2019 09:31:49 AM EST 64 UNIT completed [facility] Folic Acid 1 MG Oral Tablet Folic Acid 09/27/2019 09:31:46 AM EST 1 MG completed [facility] Folic Acid 1 MG Oral Tablet Folic Acid 09/27/2019 09:31:46 AM EST 1 MG completed [facility] Folic Acid 1 MG Oral Tablet Folic Acid 09/27/2019 09:31:46 AM EST 1 MG completed [facility] Folic Acid 1 MG Oral Tablet Folic Acid 09/27/2019 09:31:46 AM EST 1 MG completed [facility] Folic Acid 1 MG Oral Tablet Folic Acid 09/27/2019 09:31:46 AM EST 1 MG completed [facility] Folic Acid 1 MG Oral Tablet Folic Acid 09/27/2019 09:31:46 AM EST 1 MG completed [facility] dapagliflozin 5 MG Oral Tablet [Farxiga] Dapagliflozin (Farxiga) 5 mg tablet Dapagliflozin (Farxiga) 5 mg tablet 09/27/2019 09:31:43 AM EST 5 MG completed [facility] dapagliflozin 5 MG Oral Tablet [Farxiga] Dapagliflozin (Farxiga) 5 mg tablet Dapagliflozin (Farxiga) 5 mg tablet 09/27/2019 09:31:43 AM EST 5 MG completed [facility] dapagliflozin 5 MG Oral Tablet [Farxiga] Dapagliflozin Dapag liflozin 09/27/2019 09:31:43 AM EST 5 MG completed [facility] dapagliflozin 5 MG Oral Tablet [Farxiga] Dapagliflozin (Farxiga) 5 mg tablet Dapagliflozin (Farxiga) 5 mg tablet 09/27/2019 09:31:43 AM EST 5 MG completed [facility] dapagliflozin 5 MG Oral Tablet [Farxiga] Dapagliflozin (Farxiga) 5 mg tablet Dapagliflozin (Farxiga) 5 mg tablet 09/27/2019 09:31:43 AM EST 5 MG completed [facility] dapagliflozin 5 MG Oral Tablet [Farxiga] Dapagliflozin Dapag liflozin 09/27/2019 09:31:43 AM EST 5 MG completed [facility] atorvastatin 80 MG Oral Tablet Atorvastatin Atorvastatin 09/27/2019 09:31:34 AM EST 80 MG completed [facility] atorvastatin 80 MG Oral Tablet Atorvastatin Atorvastatin 09/27/2019 09:31:34 AM EST 80 MG completed [facility] atorvastatin 80 MG Oral Tablet Atorvastatin Atorvastatin 09/27/2019 09:31:34 AM EST 80 MG completed [facility] atorvastatin 80 MG Oral Tablet Atorvastatin Atorvastatin 09/27/2019 09:31:34 AM EST 80 MG completed [facility] atorvastatin 80 MG Oral Tablet Atorvastatin Atorvastatin 09/27/2019 09:31:34 AM EST 80 MG completed [facility] atorvastatin 80 MG Oral Tablet Atorvastatin Atorvastatin 09/27/2019 09:31:34 AM EST 80 MG completed [facility] atorvastatin 80 MG Oral Tablet Atorvastatin Atorvastatin 07/15/2019 09:16:37 AM EST 80 MG completed [facility] atorvastatin 80 MG Oral Tablet Atorvastatin Atorvastatin 07/15/2019 09:16:37 AM EST 80 MG completed [facility] atorvastatin 80 MG Oral Tablet Atorvastatin Atorvastatin 07/15/2019 09:16:37 AM EST 80 MG completed [facility] atorvastatin 80 MG Oral Tablet Atorvastatin Atorvastatin 07/15/2019 09:16:37 AM EST 80 MG completed [facility] atorvastatin 80 MG Oral Tablet Atorvastatin Atorvastatin 07/15/2019 09:16:37 AM EST 80 MG completed [facility] atorvastatin 80 MG Oral Tablet Atorvastatin Atorvastatin 07/15/2019 09:16:37 AM EST 80 MG completed [facility] Aspirin 81 MG Delayed Release Oral Table t Aspirin (Aspir-81) 81 mg tablet,delayed release (DR/EC) Aspirin (Aspir-81) 81 mg tablet,delayed release (DR/EC) 07/15/2019 07:54:48 AM EST 81 MG completed [facility] Aspirin 81 MG Delayed Release Oral Tablet Aspirin 07/15/2019 0 7:54:48 AM EST 81 MG completed [facility] Aspirin 81 MG Delayed Release Oral Table t Aspirin (Aspir-81) 81 mg tablet,delayed release (DR/EC) Aspirin (Aspir-81) 81 mg tablet,delayed release (DR/EC) 07/15/2019 07:54:48 AM EST 81 MG completed [facility] Aspirin 81 MG Delayed Release Oral Tablet Aspirin 07/15/2019 0 7:54:48 AM EST 81 MG completed [facility] Aspirin 81 MG Delayed Release Oral Table t Aspirin (Aspir-81) 81 mg tablet,delayed release (DR/EC) Aspirin (Aspir-81) 81 mg tablet,delayed release (DR/EC) 07/15/2019 07:54:48 AM EST 81 MG completed [facility] Aspirin 81 MG Delayed Release Oral Table t Aspirin (Aspir-81) 81 mg tablet,delayed release (DR/EC) Aspirin (Aspir-81) 81 mg tablet,delayed release (DR/EC) 07/15/2019 07:54:48 AM EST 81 MG completed [facility] Folic Acid 1 MG Oral Tablet Folic Acid 07/08/2019 07:27:04 AM EDT 1 MG completed [facility] Folic Acid 1 MG Oral Tablet Folic Acid 07/08/2019 07:27:04 AM EDT 1 MG completed [facility] Folic Acid 1 MG Oral Tablet Folic Acid 07/08/2019 07:27:04 AM EDT 1 MG [facility] Folic Acid 1 MG Oral Tablet Folic Acid 07/08/2019 07:27:04 AM EDT 1 MG [facility] Folic Acid 1 MG Oral Tablet Folic Acid 07/08/2019 07:27:04 AM EDT 1 MG completed [facility] Folic Acid 1 MG Oral Tablet Folic Acid 07/08/2019 07:27:04 AM EDT 1 MG [facility] pantoprazole 40 MG Delayed Release Oral Tablet Pantoprazole Pantoprazole 02/16/2019 07:32:26 AM EDT 40 MG [facility] pantoprazole 40 MG Delayed Release Oral Tablet Pantoprazole Pantoprazole 02/16/2019 07:32:26 AM EDT 40 MG [facility] pantoprazole 40 MG Delayed Release Oral Tablet Pantoprazole Pantoprazole 02/16/2019 07:32:26 AM EDT 40 MG completed [facility] pantoprazole 40 MG Delayed Release Oral Tablet Pantoprazole Pantoprazole 02/16/2019 07:32:26 AM EDT 40 MG completed [facility] pantoprazole 40 MG Delayed Release Oral Tablet Pantoprazole Pantoprazole 02/16/2019 07:32:26 AM EDT 40 MG completed [facility] pantoprazole 40 MG Delayed Release Oral Tablet Pantoprazole Pantoprazole 02/16/2019 07:32:26 AM EDT 40 MG completed [facility] 3 ML Insulin Glargine 100 UNT/ML Pen Inj juan Insulin Glargine (Lantus Solostar U-100 Insulin) 100 unit/mL (3 mL) insulin pen Insulin Glargine (Lantus Solostar U-100 Insulin) 100 unit/mL (3 mL) insulin pen 01/19/2019 07:29:21 AM EDT 64 UNIT completed [facility] 3 ML Insulin Glargine 100 UNT/ML Pen Inj juan Insulin Glargine (Lantus Solostar U-100 Insulin) 100 unit/mL (3 mL) insulin pen Insulin Glargine (Lantus Solostar U-100 Insulin) 100 unit/mL (3 mL) insulin pen 01/19/2019 07:29:21 AM EDT 64 UNIT completed [facility] 3 ML Insulin Glargine 100 UNT/ML Pen Inj juan Insulin Glargine (Lantus Solostar U-100 Insulin) 100 unit/mL (3 mL) insulin pen Insulin Glargine (Lantus Solostar U-100 Insulin) 100 unit/mL (3 mL) insulin pen 01/19/2019 07:29:21 AM EDT 64 UNIT completed [facility] 3 ML Insulin Glargine 100 UNT/ML Pen Injector Insulin Glargi ne 01/19/2019 07:29:21 AM EDT 64 UNIT completed [facility] 3 ML Insulin Glargine 100 UNT/ML Pen Injector Insulin Glargi ne 01/19/2019 07:29:21 AM EDT 64 UNIT completed [facility] 3 ML Insulin Glargine 100 UNT/ML Pen Inj juan Insulin Glargine (Lantus Solostar U-100 Insulin) 100 unit/mL (3 mL) insulin pen Insulin Glargine (Lantus Solostar U-100 Insulin) 100 unit/mL (3 mL) insulin pen 01/19/2019 07:29:21 AM EDT 64 UNIT completed [facility] Metoprolol Tartrate 100 MG Oral Tablet Metoprolol Tartrate 0 12/26/2018 12:07:00 PM EDT 50 MG completed [facility] Metoprolol Tartrate 100 MG Oral Tablet Metoprolol Tartrate 0 12/26/2018 12:07:00 PM EDT 50 MG completed [facility] Metoprolol Tartrate 100 MG Oral Tablet Metoprolol Tartrate 0 12/26/2018 12:07:00 PM EDT 50 MG completed [facility] Metoprolol Tartrate 100 MG Oral Tablet Metoprolol Tartrate 0 12/26/2018 12:07:00 PM EDT 50 MG completed [facility] Metoprolol Tartrate 100 MG Oral Tablet Metoprolol Tartrate 0 12/26/2018 12:07:00 PM EDT 50 MG completed [facility] Metoprolol Tartrate 100 MG Oral Tablet Metoprolol Tartrate 0 12/26/2018 12:07:00 PM EDT 50 MG completed [facility] Blood-Glucose Meter 12/17/2018 09:28:00 AM EDT 1 EACH completed [facility] Blood-Glucose Meter 12/17/2018 09:28:00 AM EDT 1 EACH completed [facility] Blood-Glucose Meter 12/17/2018 09:28:00 AM EDT 1 EACH completed [facility] Blood-Glucose Meter 12/17/2018 09:28:00 AM EDT 1 EACH completed [facility] Blood Sugar Diagnostic (Ge100 Blood Glucose Test Strip) 1 EA CH strip 12/16/2018 11:19:00 AM EDT 1 EACH completed [facility] Blood Sugar Diagnostic (Ge100 Blood Glucose Test Strip) 1 EA CH strip 12/16/2018 11:19:00 AM EDT 1 EACH completed [facility] Blood Sugar Diagnostic 12/16/2018 11:19:00 AM EDT 1 EACH [facility] Blood Sugar Diagnostic (Ge100 Blood Glucose Test Strip) 1 EA CH strip 12/16/2018 11:19:00 AM EDT 1 EACH completed [facility] Blood Sugar Diagnostic (Ge100 Blood Glucose Test Strip) 1 EA CH strip 12/16/2018 11:19:00 AM EDT 1 EACH completed [facility] Blood Sugar Diagnostic 12/16/2018 11:19:00 AM EDT 1 EACH completed [facility] Clonidine Hydrochloride 0.1 MG Oral Tablet Clonidine Hcl [facility] Hcl 09/30/2018 02:45:00 PM EST 0.1 MG completed [facility] Clonidine Hydrochloride 0.1 MG Oral Tablet Clonidine Hcl [facility] Hcl 09/30/2018 02:45:00 PM EST 0.1 MG completed [facility] Clonidine Hydrochloride 0.1 MG Oral Tablet Clonidine Hcl [facility] Hcl 09/30/2018 02:45:00 PM EST 0.1 MG completed [facility] Clonidine Hydrochloride 0.1 MG Oral Tablet Clonidine Hcl [facility] Hcl 09/30/2018 02:45:00 PM EST 0.1 MG completed [facility] Clonidine Hydrochloride 0.1 MG Oral Tablet Clonidine Hcl [facility] nidine Hcl 09/30/2018 02:45:00 PM EST 0.1 MG completed [facility] Clonidine Hydrochloride 0.1 MG Oral Tablet Clonidine Hcl [facility] Hcl 09/30/2018 02:45:00 PM EST 0.1 MG completed [facility] Ramipril 2.5 MG Oral Capsule Ramipril capsule Ramipril capsu le 07/30/2018 01:46:00 PM EST 0 completed [facility] Ramipril 2.5 MG Oral Capsule Ramipril capsule Ramipril capsu le 07/30/2018 01:46:00 PM EST 0 completed [facility] Ramipril 2.5 MG Oral Capsule Ramipril capsule Ramipril capsu le 07/30/2018 01:46:00 PM EST 0 completed [facility] Ramipril 2.5 MG Oral Capsule Ramipril capsule Ramipril capsu le 07/30/2018 01:46:00 PM EST 0 completed [facility] Ramipril 2.5 MG Oral Capsule Ramipril capsule Ramipril capsu le 07/30/2018 01:46:00 PM EST 0 completed [facility] Ramipril 2.5 MG Oral Capsule Ramipril capsule Ramipril capsu le 07/30/2018 01:46:00 PM EST 0 completed [facility] dapagliflozin 5 MG Oral Tablet [Farxiga] Dapagliflozin (Farxiga) 5 MG tablet Dapagliflozin (Farxiga) 5 MG tablet 07/17/2018 08:15:00 AM EST 5 MG completed [facility] dapagliflozin 5 MG Oral Tablet [Farxiga] Dapagliflozin (Farxiga) 5 MG tablet Dapagliflozin (Farxiga) 5 MG tablet 07/17/2018 08:15:00 AM EST 5 MG completed [facility] dapagliflozin 5 MG Oral Tablet [Farxiga] Dapagliflozin Dapag liflozin 07/17/2018 08:15:00 AM EST 5 MG completed [facility] dapagliflozin 5 MG Oral Tablet [Farxiga] Dapagliflozin (Farxiga) 5 MG tablet Dapagliflozin (Farxiga) 5 MG tablet 07/17/2018 08:15:00 AM EST 5 MG completed [facility] dapagliflozin 5 MG Oral Tablet [Farxiga] Dapagliflozin (Farxiga) 5 MG tablet Dapagliflozin (Farxiga) 5 MG tablet 07/17/2018 08:15:00 AM EST 5 MG completed [facility] dapagliflozin 5 MG Oral Tablet [Farxiga] Dapagliflozin Dapag liflozin 07/17/2018 08:15:00 AM EST 5 MG completed [facility] 24 HR Metformin hydrochloride 500 MG Extended Release Oral T ablet Metformin 07/07/2018 09:14:00 AM EDT 4 TAB completed [facility] 24 HR Metformin hydrochloride 500 MG Extended Release Oral T ablet Metformin 07/07/2018 09:14:00 AM EDT 4 TAB completed [facility] 24 HR Metformin hydrochloride 500 MG Extended Release Oral T ablet Metformin 07/07/2018 09:14:00 AM EDT 4 TAB completed [facility] 24 HR Metformin hydrochloride 500 MG Extended Release Oral T ablet Metformin 07/07/2018 09:14:00 AM EDT 4 TAB completed [facility] 24 HR Metformin hydrochloride 500 MG Extended Release Oral T ablet Metformin 07/07/2018 09:14:00 AM EDT 4 TAB completed [facility] 24 HR Metformin hydrochloride 500 MG Extended Release Oral T ablet Metformin 07/07/2018 09:14:00 AM EDT 4 TAB completed [facility] 3 ML Insulin Lispro 100 UNT/ML Pen Injec tor Insulin Lispro (Humalog Kwikpen U- 100) 100 UNIT/1 ML insulin pen Insulin Lispro (Humalog Kwikpen U-100) 1 00 UNIT/1 ML insulin pen 07/02/2018 10:28:00 AM EDT 10 UNIT compl eted [facility] 3 ML Insulin Lispro 100 UNT/ML Pen Injector Insulin Lispro 07/02/2018 10:28:00 AM EDT 10 UNIT completed [facility] 3 ML Insulin Lispro 100 UNT/ML Pen Injector Insulin Lispro 07/02/2018 10:28:00 AM EDT 10 UNIT completed [facility] 3 ML Insulin Lispro 100 UNT/ML Pen Injec tor Insulin Lispro (Humalog Kwikpen U- 100) 100 UNIT/1 ML insulin pen Insulin Lispro (Humalog Kwikpen U-100) 1 00 UNIT/1 ML insulin pen 07/02/2018 10:28:00 AM EDT 10 UNIT compl eted [facility] 3 ML Insulin Lispro 100 UNT/ML Pen Injec tor Insulin Lispro (Humalog Kwikpen U- 100) 100 UNIT/1 ML insulin pen Insulin Lispro (Humalog Kwikpen U-100) 1 00 UNIT/1 ML insulin pen 07/02/2018 10:28:00 AM EDT 10 UNIT compl eted [facility] 3 ML Insulin Lispro 100 UNT/ML Pen Injec tor Insulin Lispro (Humalog Kwikpen U- 100) 100 UNIT/1 ML insulin pen Insulin Lispro (Humalog Kwikpen U-100) 1 00 UNIT/1 ML insulin pen 07/02/2018 10:28:00 AM [facility] 01/18/2018 11:46:00 AM EDT 1 EACH completed [facility] Pen Needle, Diabetic 01/18/2018 11:46:00 AM EDT 1 EACH completed [facility] Pen Needle, Diabetic 01/18/2018 11:46:00 AM EDT 1 EACH completed [facility] Pen Needle, Diabetic 01/18/2018 11:46:00 AM EDT 1 EACH completed [facility] Pen Needle, Diabetic 01/18/2018 11:46:00 AM EDT 1 EACH completed [facility] Pen Needle, Diabetic 01/18/2018 11:46:00 AM EDT 1 EACH completed [facility] Amylases 78109 UNT / Endopeptidases 3800 0 UNT / Lipase 68878 UNT Delayed Release Oral Capsule Zagcrl-Swcvkkjx-Tvcobmv (Creon) 12,000-38,000 -60,000 unit capsule,delayed release(DR/EC) Zihfzp-Vhskykez-Vwfenlh (Creon) 12,000-3 8,000 - 60,000 unit capsule,delayed release(DR/EC) 11/18/2017 10:06:05 AM EDT 1 CAP completed [facility] Amylases 34319 UNT / Endopeptidases 3800 0 UNT / Lipase 79750 UNT Delayed Release Oral Capsule Xtywfi-Kvsuaabp-Swpnvvx Pediiu-Tdxtyute-Cgduwyl 11/18/2017 10:06:05 AM EDT 1 CAP completed [facility] Amylases 30178 UNT / Endopeptidases 3800 0 UNT / Lipase 78109 UNT Delayed Release Oral Capsule Mtahkm-Buzhjema-Xjreqtg (Creon) 12,000-38,000 -60,000 unit capsule,delayed release(DR/EC) Aawecj-Gtmblqoa-Bhekovj (Creon) 12,000-3 8,000 - 60,000 unit capsule,delayed release(DR/EC) 11/18/2017 10:06:05 AM EDT 1 CAP completed [facility] Amylases 11005 UNT / Endopeptidases 3800 0 UNT / Lipase 07814 UNT Delayed Release Oral Capsule Ztpfwy-Eaeltvfa-Cuneykn (Creon) 12,000-38,000 -60,000 unit capsule,delayed release(DR/EC) Lwwcxi-Yydzufgp-Qujnifh (Creon) 12,000-3 8,000 - 60,000 unit capsule,delayed release(DR/EC) 11/18/2017 10:06:05 AM EDT 1 CAP completed [facility] Amylases 98753 UNT / Endopeptidases 3800 0 UNT / Lipase 29304 UNT Delayed Release Oral Capsule Bcxfyv-Namlzsvm-Uzlakqi Qhmgaa-Toteyust-Yejgcke 11/18/2017 10:06:05 AM EDT 1 CAP completed [facility] Amylases 59380 UNT / Endopeptidases 3800 0 UNT / Lipase 97591 UNT Delayed Release Oral Capsule Itwazy-Qfehbvjo-Houuppp (Creon) 12,000-38,000 -60,000 unit capsule,delayed release(DR/EC) Jzvjrd-Ftymzylm-Svoyxds (Creon) 12,000-3 8,000 - 60,000 unit capsule,delayed release(DR/EC) 11/18/2017 10:06:05 AM EDT 1 CAP completed [facility] Naltrexone hydrochloride 50 MG Oral Tablet Naltrexone 10/16/2017 10:23:00 AM EST 50 MG completed [facility] Naltrexone hydrochloride 50 MG Oral Tablet Naltrexone 10/16/2017 10:23:00 AM EST 50 MG completed [facility] Naltrexone hydrochloride 50 MG Oral Tablet Naltrexone 10/16/2017 10:23:00 AM EST 50 MG completed [facility] Naltrexone hydrochloride 50 MG Oral Tablet Naltrexone 10/16/2017 10:23:00 AM EST 50 MG completed [facility] Naltrexone hydrochloride 50 MG Oral Tablet Naltrexone 10/16/2017 10:23:00 AM EST 50 MG completed [facility] Naltrexone hydrochloride 50 MG Oral Tablet Naltrexone 10/16/2017 10:23:00 AM EST 50 MG completed [facility] Thiamine 100 MG Oral Tablet Thiamine Hcl (Vitamin B1) Thiami ne Hcl (Vitamin B1) 01/16/2017 09:16:00 AM EDT 100 MG completed [facility] Thiamine 100 MG Oral Tablet Thiamine Hcl (Vitamin B1) Thiami ne Hcl (Vitamin B1) 01/16/2017 09:16:00 AM EDT 100 MG completed [facility] Thiamine 100 MG Oral Tablet Thiamine Hcl (Vitamin B1) Thiami ne Hcl (Vitamin B1) 01/16/2017 09:16:00 AM EDT 100 MG completed [facility] Thiamine 100 MG Oral Tablet Thiamine Hcl (Vitamin B1) Thiami ne Hcl (Vitamin B1) 01/16/2017 09:16:00 AM EDT 100 MG completed [facility] Thiamine 100 MG Oral Tablet Thiamine Hcl (Vitamin B1) Thiami ne Hcl (Vitamin B1) 01/16/2017 09:16:00 AM EDT 100 MG completed [facility] Thiamine 100 MG Oral Tablet Thiamine Hcl (Vitamin B1) Thiami ne Hcl (Vitamin B1) 01/16/2017 09:16:00 AM EDT 100 MG completed [facility] pantoprazole 40 MG Delayed Release Oral Tablet pantoprazole (PROTONIX) 40 MG tablet pantoprazole (PROTONIX) 40 MG tablet 06/20/2012 12:00:00 AM EDT aborted TAKE ONE TABLET BY MOUTH [facility] Clonidine Hydrochloride 0.1 MG Oral Tablet clonidine ( CATAPRES) 0.1 MG tablet clonidine (CATAPRES) 0.1 MG tablet 03/17/2012 12:00:00 AM EDT 0.1 mg Oral aborted Hypertension Take 1 tablet by mouth 2 (two) t imes daily. [facility] Hypertension Insurance Providers Payer name Policy type / Coverage type Policy ID Covered constitution party ID Covered constitution party's relationship to gallegos Policy [place] Plan Information MISSY [id number] SP [id number] [place] [id number] S [id number] MISSY I [id number] Self [id number] EXCELLUS C [id number] Spouse [id number] MEDICAID [id number] SP [id number] [facility] [place] [id number] [place] [id number] EXCELLUS BCBS B [id number] P [id number] PENDING GOVT INSURANCE [id number] SP [id number] SELF PAY ONLY [id number] SP [id number] EXCELLUS BCBS [id number] EXCELLUS BCBS [id number] Spo [id number] [place] PPO 302/307 [id number] [place]2 [id number] BLUE CROSS BLUE SHIELD-O/P [id number] BS [employer] [id number] Family Dependent [id number] BS [employer] [id number] Family Dependent [id number] [facility] [id number] BS [employer] [id number] Family Dependent [id number] BS [employer] [id number] Family Dependent [id number] [place] PPO 302/307 [id number] [place]2 [id number] EXCELLUS BCBS B [id number] P [id number] EXCELLUS H [id number] Self [id number] BLUE CROSS BLUE SHIELD -I/P [id number] [facility] -PHYSICIAN [id number] [facility] HMO/PPO/POS/EPO/OTHER V [id number] V [id number] [address] [address] BRIANNE L UNAVAILABLE [id number] UNAVA ILABLE Problems, Conditions, and Diagnoses Code Display Name Description Problem Type Effective Dates Data Source(s) K92.2 Gastrointestinal hemorrhage, unspecified Gastrointestinal hemorrhage, unspecified Diagnosis 07/17/2020 10:29:00 PM [facility] Upper GI bleed Upper GI bleed Diagnosis 07/15/2020 07:07: 00 PM [facility] Surgeries/Procedures Procedure Description Date Indications Data Source(s) X-Ray Spine Thoracolumbar Ap & Lateral 2 Views 020 12:00:00 AM [facility] ([facility]) POCT GLUCOSE, DOCKED POCT GLUCOSE, DOCKED Routine 07/18/2020 11:23 AM EST 07/18/2020 11:23:00 AM [facility] POCT GLUCOSE, DOCKED POCT GLUCOSE, DOCKED Routine 07/18/2020 8:11 AM EST 07/18/2020 08:11:00 AM [facility] IRON BINDING CAPACITY TOTAL FE BINDING CAPACITY Routine 07/18/2020 7:57 AM EST 07/18/2020 07:57:00 AM [facility] FERRITIN FERRITIN LEVEL Routine 07/18/2020 7:57 AM EST 07/18/2020 07:57:00 AM [facility] BLOOD COUNT COMPLETE AUTOMATED CBC Routine 07/18/2020 5:15 A M EST 07/18/2020 05:15:00 AM [facility] GLUCOSE QUANTITATIVE BLOOD XCPT REAGENT STRIP POCT GLUCOSE, DOC KED Routine 07/17/2020 9:43 PM EST 07/17/2020 09:43:00 PM [facility] GLUCOSE QUANTITATIVE BLOOD XCPT REAGENT STRIP POCT GLUCOSE, DOC KED Routine 07/17/2020 6:25 PM EST 07/17/2020 06:25:00 PM [facility] COLONOSCOPY, FLEXIBLE, PROXIMAL TO SPLENIC FLEXURE W/B X, SINGLE/MULTIPLE COLONOSCOPY, FLEXIBLE, PROXIMAL TO SPLENIC FLEXURE W/BX, SINGLE/MULTIPLE 07/17/2020 5:13 PM EST Gi bleed 07/17/2020 05:13:00 PM EST - 07/17/2020 06:46:00 PM [facility] GLUCOSE QUANTITATIVE BLOOD XCPT REAGENT STRIP POCT GLUCOSE, YU MIRANDA Routine 07/17/2020 4:09 PM EST 07/17/2020 04:09:00 PM [facility] GLUCOSE QUANTITATIVE BLOOD XCPT REAGENT STRIP POCT GLUCOSE, YU MIRANDA Routine 07/17/2020 11:27 AM EST 07/17/2020 11:27:00 AM [facility] [facility] GLUCOSE QUANTITATIVE BLOOD XCPT REAGENT STRIP POCT GLUCOSE, YU MIRANDA Routine 07/17/2020 7:33 AM EST 07/17/2020 07:33:00 AM [facility] BLOOD COUNT COMPLETE AUTOMATED CBC Routine 07/17/2020 4:27 A M EST 07/17/2020 04:27:00 AM [facility] GLUCOSE QUANTITATIVE BLOOD XCPT REAGENT STRIP POCT GLUCOSE, YU IMRANDA Routine 07/17/2020 4:22 AM EST 07/17/2020 04:22:00 AM [facility] GLUCOSE QUANTITATIVE BLOOD XCPT REAGENT STRIP POCT GLUCOSE, YU MIRANDA Routine 07/17/2020 12:11 AM EST 07/17/2020 12:11:00 AM [facility] Screening colonoscopy (procedure) COLONOSCOPY 07/17/2020 12 :00 AM EST 07/17/2020 12:00:00 AM [facility] GLUCOSE QUANTITATIVE BLOOD XCPT REAGENT STRIP POCT GLUCOSE, YU MIRANDA Routine 07/16/2020 8:19 PM EST 07/16/2020 08:19:00 PM [facility] GLUCOSE QUANTITATIVE BLOOD XCPT REAGENT STRIP POCT GLUCOSE, YU MIRANDA Routine 07/16/2020 6:38 PM EST 07/16/2020 06:38:00 PM [facility] UPPER GI ENDOSCOPY; DX, W/WO SPECIMEN COLLECTION, BRUS MINO/WASHING (SEP PROC) UPPER GI ENDOSCOPY; DX, W/WO SPECIMEN COLLECTION, BRUSHING/WASHING (SEP PROC) 07/16/2020 6:17 PM EST Upper GI bleed 07/16/2020 06:17:00 PM EST - 07/16/2020 06:33:00 PM [facility] GLUCOSE QUANTITATIVE BLOOD XCPT REAGENT STRIP POCT GLUCOSE, YU MIRANDA Routine 07/16/2020 5:00 PM EST 07/16/2020 05:00:00 PM [facility] MRI ABDOMEN W/O &W/CONTRAST MATERIAL MR ABDOMEN WITH AND WITHOUT CONTRAST [id number] Routine 07/16/2020 4:31 PM EST 07/16/2020 04:31 :18 PM [facility] IMMUNOASSAY TUMOR ANTIGEN QUANTITATIVE CA 19-9 CANCER ANTIGEN 1 9-9 Routine 07/16/2020 12:21 PM EST 07/16/2020 12:21:00 PM [facility] ALPHA-FETOPROTEIN SERUM AFP TUMOR MARKER Routine 07/16/2020 12:21 P M EST 07/16/2020 12:21:00 PM [facility] BLOOD COUNT COMPLETE AUTOMATED CBC STAT 07/16/2020 12:21 P M EST 07/16/2020 12:21:00 PM [facility] CARCINOEMBRYONIC ANTIGEN CEA CEA Routine 07/16/2020 12:21 PM EST 07/16/2020 12:21:00 PM [facility] COMPREHENSIVE METABOLIC PANEL COMPREHENSIVE METABOLIC PANEL STA T 07/16/2020 12:21 PM EST 07/16/2020 12:21:00 PM [facility] GLUCOSE QUANTITATIVE BLOOD XCPT REAGENT STRIP POCT GLUCOSEYU Routine 07/16/2020 11:46 AM EST 07/16/2020 11:46:00 AM [facility] Magnetic resonance imaging of abdomen with contrast (procedu re) 07/16/2020 08:33:[address] [facility] GLUCOSE QUANTITATIVE BLOOD XCPT REAGENT STRIP POCT GLUCOSEYU Routine 07/16/2020 7:57 AM EST 07/16/2020 07:57:00 AM [facility] GLUCOSE QUANTITATIVE BLOOD XCPT REAGENT STRIP POCT GLUCOSEYU Routine 07/16/2020 4:11 AM EST 07/16/2020 04:11:00 AM [facility] GLUCOSE QUANTITATIVE BLOOD XCPT REAGENT STRIP POCT GLUCOSE, YU MIRANDA Routine 07/16/2020 2:15 AM EST 07/16/2020 02:15:00 AM [facility] GLUCOSE QUANTITATIVE BLOOD XCPT REAGENT STRIP POCT GLUCOSEYU Routine 07/16/2020 1:16 AM EST 07/16/2020 01:16:00 AM [facility] GLUCOSE QUANTITATIVE BLOOD XCPT REAGENT STRIP POCT GLUCOSE, YU MIRANDA Routine 07/16/2020 12:17 AM EST 07/16/2020 12:17:00 AM [facility] GLUCOSE QUANTITATIVE BLOOD XCPT REAGENT STRIP POCT GLUCOSE, YU MIRANDA Routine 07/16/2020 12:01 AM EST 07/16/2020 12:01:00 AM [facility] UPPER GI ENDOSCOPY UPPER GI ENDOSCOPY 07/16/2020 12:[address] 07/16/2020 12:00:00 AM [facility] GLUCOSE QUANTITATIVE BLOOD XCPT REAGENT STRIP POCT GLUCOSE, DOC KEBraulio Routine 07/15/2020 11:36 PM EST 07/15/2020 11:36:00 PM [facility] BLOOD COUNT COMPLETE AUTOMATED CBC Routine 07/15/2020 9:06 P M EST 07/15/2020 09:06:00 PM [facility] HEMOGLOBIN GLYCOSYLATED A1C HEMOGLOBIN A1C Routine 07/15/2020 9:06 PM EST 07/15/2020 09:06:00 PM [facility] COMPREHENSIVE METABOLIC PANEL COMPREHENSIVE METABOLIC PANEL Rou owen 07/15/2020 9:06 PM EST 07/15/2020 09:06:00 PM [facility] GLUCOSE QUANTITATIVE BLOOD XCPT REAGENT STRIP POCT GLUCOSE, DOC KEBraulio Routine 07/15/2020 9:02 PM EST 07/15/2020 09:02:00 PM [facility] Measurement of occult blood in stool specimen using immunoas say (procedure) 07/15/2020 [facility] [facility]o [facility] 07/13/2020 09:11:00 PM [facility] CT Abd/pel w/o contrast 07/13/2020 09:11:00 PM [facility] CT Head without contrast 07/13/2020 07:33:00 PM [facility] CT Head without contrast 07/13/2020 07:33:00 PM [facility] Plain chest X-ray (procedure) 07/13/2020 06:49:00 PM [facility] Plain chest X-ray (procedure) 07/13/2020 06:49:00 PM E [facility] Plain chest X-ray (procedure) 07/13/2020 06:49:00 PM E [facility] Plain chest X-ray (procedure) 07/13/2020 06:49:00 PM [facility] SARS-CoV-2 (PCR) Interpretation 07/13/2020 12:00:00 AM [facility] Blood culture for bacteria, including anaerobic screen (proc edure) 07/13/2020 12:00:[address] [facility] 07/13/2020 12:00:00 AM [facility] SARS-CoV-2 (PCR) Interpretation 07/13/2020 12:00:00 AM [facility] Ultrasonography of abdomen (procedure) 05/30/2020 09:3 3:00 AM EDT [facility] Ultrasonography of abdomen (procedure) 05/30/2020 09:3 3:00 AM EDT [facility] Ultrasonography of abdomen (procedure) 05/30/2020 09:3 3:00 AM EDT [facility] Diabetic Foot Exam 05/22/2020 12:00:00 AM EDT [facility] ([facility]) Results ID Date Data Source [id number] 08/18/2020 12:42:00 PM EST [facility] Name Value Range Interpretation Code Description Data Marlen rce(s) Supporting Document(s) SARS coronavirus 2 RNA [Presence] in Res piratory specimen by KELLEY with probe detection [facility] This lab was ordered by [facility] a nd reported by [facility]. ID Date Data Source [id number] 07/27/2020 12:31:00 PM [facility] Name Value Range Interpretation Code Description Data Marlen rce(s) Supporting Document(s) Urine Random Creatinine 342.0 mg/dL [facility] @Instrument will autodilute@review test & document. (F5 - H,I,D,E)THERE IS NO ESTABLISHED RANGE FOR RANDOM URINE CREATININE Urine Microalbumin 48.3 mg/L 0.0-29.9 Above high normal [facility] Ur Malb/Cre Ratio (ACR) 14.1 ug/mg 0.0-30.0 [facility] ID Date Data Source [id number] 07/27/2020 11:43:00 AM [facility] Name Value Range Interpretation Code Description Data Marlen rce(s) Supporting Document(s) Leukocytes [#/volume] in Blood by Automated count 8.0 10*3/uL 4.45-10 .71 [facility] Erythrocytes [#/volume] in Blood by Automated count 4.33 10*6/uL 4.3- 6.1 [facility] Hemoglobin [Moles/volume] in Blood 11.7 g/dL 13-18 Below low no rmal [facility] Hematocrit [Volume Fraction] of Blood by Automated count 36.5 % 42-52 Below low normal [facility] Erythrocyte mean corpuscular volume [Ent itic volume] in Cord blood by Automated count 84.3 fL 80-96 N [facility] Erythrocyte mean corpuscular hemoglobin [Entitic mass] by Automated count 27.0 pg 27-31 N [facility] Erythrocyte mean corpuscular hemoglobin concentration [Mass/volume] in Cord blood 32.1 g/dL 33-37 Below low normal [facility] Erythrocyte distribution width [Entitic volume] by Automated cou nt 16 % 11-15 Above high normal [facility] Platelets [#/volume] in Blood by Automated count 442 10*3/uL 130-472 N [facility] Platelet mean volume [Entitic volume] in Blood 9.0 fL 9.1-13. 1 Below low normal [facility] Neutrophils/100 leukocytes in Blood by Automated count 71.1 % 41- 77 N [facility] Neutrophils [#/volume] in Blood by Automated count 5.7 U 1.7-7.6 N [facility] Lymphocytes/100 leukocytes in Blood by Automated count 20.8 % 14- 46 N [facility] Lymphocytes [#/volume] in Blood by Automated count 1.7 U 0.6-4.6 N [facility] Monocytes/100 leukocytes in Blood by Automated count 6.8 % 4-12 N [facility] Monocytes [#/volume] in Blood by Automated count 0.5 U 0.2-1.2 N [facility] Eosinophils/100 leukocytes in Blood by Automated count 0.1 % 0-7 N [facility] Eosinophils [#/volume] in Blood by Automated count 0.0 U 0.0-0.5 N [facility] Basophils/100 leukocytes in Blood by Automated count 0.9 % 0.4-1 .3 N [facility] Basophils [#/volume] in Blood by Automated count 0.1 U 0.0-0.2 N [facility] NUCLEATED RED BLOOD CELL 0 % [facility] NUCLEATED RED BLOOD CELL# 0 U [facility] Immature granulocytes [Presence] in Blood by Automated count 0-2 N [facility] Immature granulocytes [#/volume] in Blood by Automated count 0.0 U 0-0.1 [facility] Manual Differential panel - Blood NO [facility] ID Date Data Source [id number] 07/27/2020 12:08:00 PM [facility] Name Value Range Interpretation Code Description Data [...] blood glucose control.* High risk of developing detention complications such asretinopathy, nephropathy, neuropathy, cardiopathy, etc. Some danger of hypoglycemic reaction in Type I diabetics.Some glucose intolerant individuals and "Sub Clinical"diabetics may demonstrate HGBA1C levels in this area. Glucose mean value [Moles/volume] in Blood Estimated f rom glycated hemoglobin 220 mg/dL [facility] An A1C of 7% - the goal of diabetic ther apy - is equivalentto an EAG of 154 mg/dl. ID Date Data Source [id number] 07/27/2020 12:51:00 PM [facility] Name Value Range Interpretation Code Description Data Marlen rce(s) Supporting Document(s) Urea nitrogen [Mass/volume] in Serum or Plasma 13 mg/dL 9-23 N [facility] Sodium [Moles/volume] in Serum or Plasma 132 mmol/L 132-146 N [facility] Potassium [Moles/volume] in Serum or Plasma 4.1 mmol/L 3.5-5.5 [facility] Chloride [Moles/volume] in Serum or Plasma 93 mmol/L 99-109 [place] w low normal [facility] Carbon dioxide, total [Moles/volume] in Serum or Plasma 30 mmol/L 20 -31 [facility] Anion gap in Serum or Plasma 13 mmol/L 8-16 N [facility] Glucose [Mass/volume] in Serum or Plasma 268 mg/dL 74-106 Above high normal [facility] Creatinine 1.1 mg/dL 0.5-1.1 [facility] Glomerular filtration rate/1.73 sq M.pre dicted [Volume Rate/Area] in Serum or Plasma Greater Than 60 ABOVE 60 [facility] Alanine aminotransferase [Enzymatic acti vity/volume] in Serum or Plasma by With P-5'-P 33 U/L 10-49 N [facility] Aspartate aminotransferase [Enzymatic ac tivity/volume] in Serum or Plasma by With P-5'-P 20 U/L 0-33 N [facility] pital Alkaline phosphatase [Enzymatic activity/volume] in Serum or Plasma 208 U/L 45-129 Above high normal [facility] Calcium [Mass/volume] in Serum or Plasma 9.3 mg/dL 8.5-10. 1 No range defined, or normal ranges don't apply [facility] Repeated by: Cristina Jacobs 07/27/20 1251. Result Confirmation: 9.1 # mg/dL Bilirubin.total [Mass/volume] in Serum or Plasma 0.7 mg/dL 0.3-1.2 N [facility] Albumin [Mass/volume] in Serum or Plasma by Bromocresol purple (BCP) dye binding method 3.5 g/dL 3.2-4.8 N [facility] Protein [Mass/volume] in Serum or Plasma 6.8 g/dL 5.7-8.2 [facility] ID Date Data Source [id number] 07/27/2020 12:51:00 PM [facility] Name Value Range Interpretation Code Description Data Marlen rce(s) Supporting Document(s) Triglycerides 106 mg/dL 0-150 N [facility] Cholesterol 184 mg/dL 120-[address] [facility] HDL Cholesterol 74 mg/dL [facility] HDL Less than 40 mg/dL: Major risk for CHDHDL Greater than 59 mg/dL: Low risk for CHD LDL Cholesterol, Calc 89 mg/dL 0-100 N [facility] ID Date Data Source [id number] 07/27/2020 12:51:00 PM [facility] Name Value Range Interpretation Code Description Data Marlen rce(s) Supporting Document(s) Thyrotropin [Units/volume] in Serum or Plasma by Detec tion limit <= 0.005 mIU/L 1.38 u[iU]/mL 0.35-5.[address] [facility] ID Date Data Source [id number] 07/25/2020 11:32:00 AM EST [facility] Patient Name: FALGUNI ALSTON JR : 1975 Sex: M Pt Unit #: [id number] Location:[facility] Provider: Visit Date/Time: 07/25/20 Primary Insurance: [facility] Secondary Insurance: Self Pay Intake Vital Signs [...] here for 2 days and transferred to [place] to [facility] because of his blood count.Had endoscopy and colonoscopy done that were normal per pt. Did have 2 units of blood. Discharged on 07-17-2020. No further fainting. Back is painful from the falls.Is known d iabetic and checks his sugar 3-4 times a day. 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 temp set [...] here for f/u GI bleed, admitted to [facility] and received 2 units PRBC [...] nourished Orientation: alert, awake and oriented x3 [facility] Head: normal to inspection, normocephalic and [...] Manufactu rer 0.5 mL IM Left arm [id number] 12/29/21 [id number] [employer] D VIS Given Date VIS Provided VIS Publication Date 07/25/20 Single Vaccine 19 Eligibility Eligibility Date Funding Source Not [facility] Eligible 07/25/20 Private Assessment Plan Assessment [...] neuropathy, unspecified Category: Medical Qualifiers: Diabetes mellitus rn long term care insulin use: [facility] detention use Qualified Code(s): E11.40 - Type 2 diabetes mellitus with diabetic neuropathy, unspecified; Z79.4 - long-term (current) use of insulin Plan - Marsha [...] rce(s) Supporting Document(s) ID Date Data Source [id number] 07/18/2020 01:27:51 PM [facility] Name Value Range Interpretation Code Description Data Marlen rce(s) Supporting Document(s) Discharge Summary [facility] [id number]/[id number]EU7nW0rBKN9DIuULcIzEfUkUJZu lbm [file] AgICAgICAgICAgICAgICAgICAgICAgICAgICAgICAgICAgICAgICAgICAgICAgICAgICAgICAgICAgIC NoAJAkEHKgYRJuDHRxAJ0MIFOiUSKcQPRtBORiELIa ICAgICAgICAgICAgICAgICAgICAgICAgICAgICAgICAgICAgICAgICAgICAgICAgICAgICAgICAgICAg AQSxFVRjXSZkGASlAKGaDVDkROGmXHXqOT3SVRCeHFBdQOQvTRUvYLWjMKLbBSCeMTIuNTYzGRGsJRIm ICAgICAgICAgICAgICAgICAgICAgICAgICAgICAgIC UgVDBtLYLbRUPfOVKxZIXuDZFmMCIoWTRbSTVcGKIkSACkLG3LSVPyWWErMWRpYNJiXAPkOTSbTUXjMR AgICAgICAgICAgICAgICAgICAgICAgICAgICAgICAgICAgICAgICAgICAgICAgICAgICAgICAgICAgIC BoZRDqFENpOBGcRDYmRDDoQT5ZWBWgLGIxMJJbZSCo ICAgICAgICAgICAgICAgICAgICAgICAgICAgICAgICAgICAgICAgICAgICAgICAgICAgICAgICAgICAg PZFaUDBdSHYqXIOgIJCiBLPvJRUmZFKrZCBlYN2SUGYpKKUwYCChGHLpWXFzUYXbNJAxDZAmBRHjQMMa ICAgICAgICAgICAgICAgICAgICAgICAgICAgICAgIC GqCYMmHLUvDFGdTDFpMUSqXQAdIQXkGXMuWKArWFOoUQOkLFVmOU6NOHHcLCHbODHaTIUoKQBjUYYrIJ AgICAgICAgICAgICAgICAgICAgICAgICAgICAgICAgICAgICAgICAgICAgICAgICAgICAgICAgICAgIC FtGVYiNYEoBZAiGIBkLYEvYVGeOX5BDLFvHBPlYAKg ICAgICAgICAgICAgICAgICAgICAgICAgICAgICAgICAgICAgICAgICAgICAgICAgICAgICAgICAgICAg YSZkUAJiQETdPBFvRUAhDCCzNLJnYPAiXUTbSZHuNT3DZDBzQZZmUFEnRUVuOLLpVJUcVLBqIUPuHEHp ICAgICAgICAgICAgICAgICAgICAgICAgICAgICAgIC AlIHOcPQLhNGRmNJEeNHDtXNYfQBWyFXQiFHGaLDGdXZChFGGzOOMsPN2YYDZrSTUnEECjOLXhARIsKU AgICAgICAgICAgICAgICAgICAgICAgICAgICAgICAgICAgICAgICAgICAgICAgICAgICAgICAgICAgIC EpFMFhNIHuFHAvQFOdLMClTEZgZKIrZY0RRE63vUHf n0A4BOToET0rrqj/Be4JUCkrfsFxtFDjJC6GZuHuHP4xln4MNiYjDK7tiw4XWXqTZpCqV3C2lWItLTYw AEQYIiWiU43cGGreAv54XBiyHPHeGrYnTTk1Zd4NItTeT6tjUDZuQdH8SFMqGlF3TSWyMwZ8CLDiUiUe GYHoZZKeJFOlUJMRCGA9YRLaYtYqFYvwLS6Jm6UpwO A2DQo+It8LTC0yg0RyZFlkCeKhSE4dfq2FYIoPNoBhU8VjgqC5UIBdONTgOj1EBUJzAPMtaWAbUvOjFW LYVgYrG2MkzY64JNVJWw8+SYthblJvJbjLNwMhXIPmy7ShEOv3ZC8CVQFgPIq7yJDbQTmvH3cocepsIQ Y1cN1jvmjiSbytBvKaAMTvA2YodOAuHVKISEMouGKj MO4fFE4jBSOcSKP7IpO5HIUVFX6DXTXtZNHlaHJaWXRhIGTKVE3NWVnnMQW4BTYntmLonYRcZFgaKN6A YXJlbnQgMzIgMCBSDQo+Wo5DQP8oj5SkDRgtAVHcVM4yeh6BJUpDSeXbQ3T5wQPqW5V3MTynDv9TQBOr XQRoGeNvPEUHFZyiMO8FNC8celK6JZ8XqPIsPIApEX OdzSJqMJr5Q53bqGCkVVfbZO3GTOJ+Shaye+Nn5BSYLkFVZxGRIxFfFfGNRLHjAiO2AtI6FUc8EfT5EtXJ 71dFkyrwEgJZbnCG0YVU6xXSBvZRUSYD3NhKDysJ8fdiPgGkXuQMNQHzPoU85rzQCoPFZiTKExERHsFf 4DZPLeV8RpkhKrxPzcagZnSEPzRPBHLH7TALbdlhWk jXLvhWatCT47hRlsNW2BOs4GPzNsRU2nka8BqLZsQl1HVVGhCP4KPLCqNRHiHKSeNQS1KVGnSbFlMYwy RRCeVNFoHVE8EQPzOODoWB8SWmKvGPAjEaF7JWUbTITjYHUasq2HNKZaUBGiADNiUGFiCMWwGWJoGPun VDNsEOHpQNG8WPYuDLEyRE0TNgFeDUBrKNY4KaOiBE WiILNxqs0KTYAnCHYeSzamPIGlFJBnNYPiUQodTWWeJQF9WghsPVUuODLtVP6MWwXbZZVaIRS5IAGuMU DySDBhau9VIOHmPXTwENVuFMAvEEZjHIVnPXmiVVIeUUQwTwM8SDGhKPStGZ5ERtUuLVWiIJBmLgEzES CqJPOzth6EAXCrBRWtBtWrRMMnPMOuYBKvWYujOIAy VBF5WdZhDVBjJEYtLO0SVjElLPDaSFD7LFwsSQZgIDJlyb9WGJGeGSBzNvXgEnJtBXCzBBVcBSrhGORm WVO9DgIxAQUbOGMcCU8MSmTyPSSbOFh8AXHjRPWjRHSrfd8HNQUaCPQyTecnOCIuPKUiUYKxJKauVHKr ISM3JHxhDQBmXHHtAF4JGtPpBLGeHIx1ATUnRKFyJY Rxbg2UBWPnTKBaMTT5OAEmQPNiEIKiJGqnLJBjAEH5YeLxIQTwDHRlZJ0IQlHzMZZuWjVvQMOoBCBjCK Eocg6MGZKeGSAoACQ7NdOwHDZpBNObFBklHVXiHZZyClc8HADxVINiZH5KXpRrGAGdHzN3TATvYTXwLZ Srmp9DFGTvLBWaTTr7SFAiSYGuUIYvLPgvCXNwENX4 WUayFXPaGDOdDY3YOeJmCSUbKwUsJXXhLCFlZIRkyg7CRPRvIZNdLcO7BJWnLPJnLUKrXYcwOELsGKB4 IJd4NEJoYOAwSI4QIlVlACDbIzowEKOlAWDcGTRvwo5VVTYuOKEtSLGtFkCbXEPyGWHnUVgwJXNkQGH9 AWH1VIMiOYYiRC6XZfMxMWauDSLRSll5JDbgR9g8YA AjUC2HJ9Eze1LeMyToIYNMWXtqIT3suhStBZOcXr6LB6oFGag3DmolEZy6WHYrJ9LuGzQjJnM2XQFmSf N9IUc8ORBqPT9vXFOpRCC3DxRpNZK7APW4LPDuTqUzTSOsQgNuNwa8TrZgNtCvYT0FDx9EWqI1RUX5cR FiYv0DMxs9LRVROoEfHY1UMNl= ID Date Data Source [id number] 07/18/2020 11:26:05 AM Health system Value Range Interpretation Code Description Data Marlen rce(s) Supporting Document(s) Glucose [Mass/volume] in Capillary blood by Glucometer 412 mg/dL 70- [address] [facility] ID Date Data Source [id number] 07/18/2020 08:13:33 AM Health system Value Range Interpretation Code Description Data Marlen rce(s) Supporting Document(s) Glucose [Mass/volume] in Capillary blood by Glucometer 281 mg/dL 70- 140 [facility] ID Date Data Source [id number] 07/18/2020 08:37:36 AM Health system Value Range Interpretation Code Description Data Marlen rce(s) Supporting Document(s) Ferritin [Mass/volume] in Serum or Plasma 89 ng/ml 30-400 [facility] ID Date Data Source [id number] 07/18/2020 11:16:16 AM Health system Value Range Interpretation Code Description Data Marlen rce(s) Supporting Document(s) Iron [Mass/volume] in Serum or Plasma 12 ug/dl 59-158 [facility] Transferrin [Mass/volume] in Serum or Plasma 205 mg/dL 200-360 [facility] Iron binding capacity [Mass/volume] in Serum or Plasma 285 ug/dl 228 -428 [facility] Iron saturation [Mass Fraction] in Serum or Plasma 5.0 % 20-55 [facility] ID Date Data Source [id number] 07/18/2020 06:11:08 AM Health system Value Range Interpretation Code Description Data Marlen rce(s) Supporting Document(s) Leukocytes [#/volume] in Blood by Automated count 3.4 10*3/uL 4-[address] [facility] Erythrocytes [#/volume] in Blood by Automated count 3.18 10*6/uL 4.6- 6.1 [facility] Hemoglobin [Mass/volume] in Blood 9.1 g/dL 13.5-18 [facility] Hematocrit [Volume Fraction] of Blood by Automated count 27.4 % 4 1-53 [facility] Erythrocyte mean corpuscular volume [Entitic volume] by Auto mated count 86.0 fL 80-96 [facility] Erythrocyte mean corpuscular hemoglobin [Entitic mass] by Automated count 28.4 pg 27-33 [facility] Erythrocyte mean corpuscular hemoglobin concentration [Mass/volume] by Automated count 33.1 g/dL 32.0-[facility] width [Ratio] by Automated count 17.2 % 11.5-14.[address] [facility] Platelets [#/volume] in Blood by Automated count 229 10*3/uL 150-400 [facility] ID Date Data Source [id number] 07/17/2020 09:48:05 PM [facility] Name Value Range Interpretation Code Description Data Marlen rce(s) Supporting Document(s) Progress Note [facility] [id number]/SMNuyGLBin7TaCImcRFc4YYkdSBFqP9IbMGZ8zP6qVNV7GZgVTzRjQsLmCBFw lbm [file] [id number]KKC2IVTj== ID Date Data Source [id number] 07/17/2020 09:48:43 PM [facility] Name Value Range Interpretation Code Description Data Marlen rce(s) Supporting Document(s) Glucose [Mass/volume] in Capillary blood by Glucometer 220 mg/dL 70- [address] [facility] ID Date Data Source [id number] 07/17/2020 06:26:39 PM [facility] Name Value Range Interpretation Code Description Data Marlen rce(s) Supporting Document(s) Glucose [Mass/volume] in Capillary blood by Glucometer 162 mg/dL 70- [address] [facility] ID Date Data Source [id number] 07/20/2020 08:43:00 AM EST [facility] Pathology ReportName: Braulio ALSTONMRN: [id number] Number: [id number] Date: 07/17/2020 18:11Received Date: [...] Delaney Mendoza MD, Attending Pathologist 07/20/202008:43:44Processed at [facility]ology Laboratory at [facility], [address] [place] [address]. [facility], [address] [place] [address]. The attending pathologist named above attests that he/she haspersonally reviewed the relevant preparation(s) for the specimen,performed microscopic examination when indicated, and rendered the finaldiagnosis. Unless 'gross-only' is specified, the final diagnosis is basedon a microscopic examination of sales promotion representative sections of tissue.Gross DescriptionThe specimen is received [...] developed and their performance characteristics determined by [facility] Pathology department. They have not been cleared or approved by the USFood and Drug Administration. The FDA has determined that such clearanceor approval is not necessary. Name Value Range Interpretation Code Description Data Marlen rce(s) Supporting Document(s) ID Date Data Source [id number] 07/17/2020 04:23:19 PM [facility] Name Value Range Interpretation Code Description Data Marlen rce(s) Supporting Document(s) Glucose [Mass/volume] in Capillary blood by Glucometer 91 mg/dL 70- 140 [facility] ID Date Data Source [id number] 07/17/2020 03:24:32 PM [facility] Name Value Range Interpretation Code Description Data Marlen rce(s) Supporting Document(s) History and Physical [facility] [id number]/MMZvlTVSls8ReCQkiCJi3MUacKDJwC9FoVPN2rQ7qGHA4UDfHCpHxTcZsCKKx [facility] [file] [id number]K1JQR5pCWdPp2FZjM7VVzRFoSgPD0MVNi= ID Date Data Source [id number] 07/17/2020 11:32:47 AM [facility] Name Value Range Interpretation Code Description Data Marlen rce(s) Supporting Document(s) Glucose [Mass/volume] in Capillary blood by Glucometer 113 mg/dL 70- [address] [facility] ID Date Data Source [id number] 07/17/2020 07:35:48 AM Health system Value Range Interpretation Code Description Data Marlen rce(s) Supporting Document(s) Glucose [Mass/volume] in Capillary blood by Glucometer 154 mg/dL 70- [address] [facility] ID Date Data Source [id number] 07/17/2020 04:46:55 AM [facility] Name Value Range Interpretation Code Description Data Marlen rce(s) Supporting Document(s) Leukocytes [#/volume] in Blood by Automated count 4.6 10*3/uL 4-10 [facility] Erythrocytes [#/volume] in Blood by Automated count 3.18 10*6/uL 4.6- 6.[address] [facility] Hemoglobin [Mass/volume] in Blood 8.9 g/dL 13.5-[address] [facility] Hematocrit [Volume Fraction] of Blood by Automated count 27.2 % 4 1-[address] [facility] Erythrocyte mean corpuscular volume [Entitic volume] by Auto mated count 85.5 fL 80-96 [facility] Erythrocyte mean corpuscular hemoglobin [Entitic mass] by Automated count 28.1 pg 27-33 [facility] Erythrocyte mean corpuscular hemoglobin concentration [Mass/volume] by Automated count 32.9 g/dL 32.0-[facility] width [Ratio] by Automated count 16.8 % 11.5-14.[address] [facility] Platelets [#/volume] in Blood by Automated count 210 10*3/uL 150-400 [facility] ID Date Data Source [id number] 07/17/2020 04:36:15 AM [facility] Name Value Range Interpretation Code Description Data Marlen rce(s) Supporting Document(s) Glucose [Mass/volume] in Capillary blood by Glucometer 223 mg/dL 70- 140 [facility] ID Date Data Source [id number] 07/17/2020 12:24:46 AM [facility] Name Value Range Interpretation Code Description Data Marlen rce(s) Supporting Document(s) Glucose [Mass/volume] in Capillary blood by Glucometer 238 mg/dL 70- 140 [facility] ID Date Data Source [id number] 07/16/2020 08:23:52 PM Health system Value Range Interpretation Code Description Data Marlen rce(s) Supporting Document(s) Glucose [Mass/volume] in Capillary blood by Glucometer 109 mg/dL 70- 140 [facility] ID Date Data Source [id number] 07/16/2020 07:34:01 PM [facility] Name Value Range Interpretation Code Description Data Marlen rce(s) Supporting Document(s) Glucose [Mass/volume] in Capillary blood by Glucometer 127 mg/dL 70- 140 [facility] ID Date Data Source [id number] 07/19/2020 05:30:00 PM [facility] Surgical Pathology ReportName: Braulio ALSTONColtMRN: [id number] Number: [id number] Date: 07/16/2020 18:32Received Date: [...] PathologistElectronically Signed By Silvia Jennings M.D., Attending Ixkvzgzartc29/12/2020 17:30:07Processed at [facility] Pathology Laboratory at [facility], [address] [place] [id number]. The attending pathologist named aboveattests that he/she [...] developed and their performance characteristics determined by [facility] Pathology department. They have not been cleared or approved by the USFood and Drug Administration. The FDA has determined that such clearanceor approval is not necessary. Name Value Range Interpretation Code Description Data Marlen rce(s) Supporting Document(s) ID Date Data Source [id number] 07/16/2020 05:41:15 PM [facility] MR ABDOMEN WITH AND WITHOUT CONTRAST [...] rce(s) Supporting Document(s) ID Date Data Source [id number] 07/16/2020 05:02:49 PM [facility] Name Value Range Interpretation Code Description Data Marlen rce(s) Supporting Document(s) Glucose [Mass/volume] in Capillary blood by Glucometer 115 mg/dL 70- 140 [facility] ID Date Data Source [id number] 07/16/2020 03:18:09 PM [facility] Name Value Range Interpretation Code Description Data Marlen rce(s) Supporting Document(s) [facility] RCGPVn7gGyJTTtEq67/URQgdYRKfo9EwYEvhTNe2AFddBCPfU1HdCHQ7dE5pKKN3CPiKKsMqPkJgWDF5 lbm [file] ICAgICAgICAgICAgICAgICAgICAgICAgICAgICAgICAgICAgICAgICAgICAgICAgICAgICAgICAgICAg MWWdDXSmJSCmRRNeADHdAQ2HDOPhCXQrQPIxMPKbHCZxWBZqDSIyKRRfSYKhQUUcXGAtBJEkBXJjWKAe ICAgICAgICAgICAgICAgICAgICAgICAgICAgICAgIC IgLMMpMQHkRMLyKHAqYSGuQQCaHVCjILEfVL9UXRWkXMUyNWVxMOWpFZNrJHFuHWUyKNAvKOGpYOPsSM AgICAgICAgICAgICAgICAgICAgICAgICAgICAgICAgICAgICAgICAgICAgICAgICAgICAgICAgICAgIC LjRIAaHBEhNA0ABLSsUBWaLZYnSVHfLUBdFREbBNRp ICAgICAgICAgICAgICAgICAgICAgICAgICAgICAgICAgICAgICAgICAgICAgICAgICAgICAgICAgICAg ILZdCFKiLGRhTLLaLEGdGWQeAQ0XFJBoZBWdXJGbJULaXBGnKSEfRWCgPLHhQGKdHRDmAYQpIPBnPEXp ICAgICAgICAgICAgICAgICAgICAgICAgICAgICAgIC BvYKEnTMGoPUPgXUHsWKGiCCNzOZJoKZEuPLGeIR1SJZZdOPYjGXRvKOBwVPHfYQOxGEQwBQMyULReUL AgICAgICAgICAgICAgICAgICAgICAgICAgICAgICAgICAgICAgICAgICAgICAgICAgICAgICAgICAgIC AnQJFcRBVkYITsIR2ELITbIQWnUEDyYUWeWHFoHTGt ICAgICAgICAgICAgICAgICAgICAgICAgICAgICAgICAgICAgICAgICAgICAgICAgICAgICAgICAgICAg EKGuHTKuOQIyKRPlTUHkLSPqKHZwBU6UHQYgCNTgYWRdUOWxPDGhGQVxBFEfZILmLYEdESJeDCBtXJUp ICAgICAgICAgICAgICAgICAgICAgICAgICAgICAgIC BqBJViJVDzDJEpJIUaUENzCWPsFOBxHPIoXFVuSABtRA0HCFQzFLIvCEYqWJQlQCNxYPMlAJJfFEYpJB AgICAgICAgICAgICAgICAgICAgICAgICAgICAgICAgICAgICAgICAgICAgICAgICAgICAgICAgICAgIC NoHXJnBMCkAQHhYWJcUG5XQDBtNIKvRNEkNCNnNLPx ICAgICAgICAgICAgICAgICAgICAgICAgICAgICAgICAgICAgICAgICAgICAgICAgICAgICAgICAgICAg GQIxVWGbHOQmXLThHNRbBQNkCVBvPEFmEB9CSA65lDWvu2W0TGPgRD7knrk/Ga1UUCdrgbOvgGDuPI1R PuZcJH8blj3FWrVbFG0xrb9WJHpQWxHgX3S9iNLwHS YdYVKMFeTvH62hSDanWb59QCpuPEJoOnVjYFr1Uo2QWlIlO7fqNVWaWtG6PCFnDhZ8VEJnJkVoXWrpCB 6Dm2NljNJdQIy+No5QZN5vt3AyRSojJsYdKN9rje1SLQfTRpWcK8LlxgM3DLJ8BIRvDr5JNKNjKTWrgL GlBxOwTKHESuGmN6NmnL04TEECQp6+DQplbmRvYmoN KkK9QXLep1BjMGg8JD5WPFLlATa4kNJcH99rt0QwqNYwRftoTBSxeKZ1IO9kE3YnqOo4YH6hJHcSI7le VFDaLXFgPI1bZSAlCWCdIkL9JVURFX0IGINbNOLmyGMjHBCkGEFNAC9GYWzvBZH1RGHqjxFxnIBrQPwb YX5QWWBmoyTmACWgKWYNKZo+Gk5DQT1ay1XfYKlbMH WhAC5sma1LHKcJUdRwQ8J5zJNuC7Y7AXroRg5HJOJdAEJlZTLgXCKJKHxkPH8YHD1kduE5SE1GgUEbJW YnXEDchCCaXJn2C33egDZtEYlrXT8SVCR+Shaye+Nv6HLFGoECFkIBRgBnHsYHVJUuRuW7FnZ4GFl2DcK9 DcVN73yStvcfBwTEtgSM8HOF4oTTUrUVTIGI8AaNYc yO8hxcNzXrMuGJURVeTyZ26otLYhPLGaSMV8ZNLcJw2JORUxG7GcfvYokXlsteAhOMJpDIZNVS1IHKtf mqJbdKRfeFynQN15gGyfDO1NZv1JAzIaDB8hum0KmIDdNz6BUFStYU1QYQXqCPEaZLIxZMY2CZQmZyOz IAusFXFvUNSaEKF6OMApZGPbPB2MGoQeGJDgSVyuDJ KwYAOhQWFaqy5ACQAqYHIdRDXtYkIhVVMbBTRoYLsiZUFlREKgVVM1HAMvZFJjEC9VGwSuZYDvNBE2SC pfEZCdCCGcmo0NVRUxYNKwFgM5RjAwXKIyVWDsUJmsOKDmNYT2OJAdWVVeRNWdBC8JBrTfIYDfGJK2HG dsXAKsWARxzy9JCLDrRKMwWnT2CvHbHOHbJPOsDOsa HKCvMCK4AvVqOOQaDRCsZE3NNzOpVSKcBJj8QKYgWSKmLNGmgb2MTTBeXWZhFXboHoUsSYQeUXZsIIuz SHPzLIE9DAD6AMObZYHoUW1YGiKdOTAmTTzxKYCjYSCoMIZvsn3ZUFJkEYBrKUM5WlDbOFYjXGMwLDnb CCDeAQNdLEBoLXLfBTEiMM2OBqYfVVKdVFGmWKVuZT XuKWJvzm1FERVzHOBkNXG6GYQgFLKyDMPgLPg0snJpoBEqHQv1YX4VV5FfwiTnOJvTAg7Gn712ZNN8WH VoGe7BN7hnLt5tOZDtOTHXTy3HADr8OfVmAyG7XXOvXTQyQ3J5AgO2R4YaFIU5F4PgCiQaTMY+IDw2MW JpUuhjRTDeNQTdWtjoOZbaYgH2GvFyKWJoZSDpEi3w XSANCj4+IWoqjTEpzQqrCIAIBkTkXfD2ZFedMWYKGg9T ID Date Data Source [id number] 07/16/2020 01:53:10 PM [facility] Name Value Range Interpretation Code Description Data Marlen e(s) Supporting Document(s) Consultation [facility] DEKILw2nIdHHKiXv16/SMApdBIUqp5SmMKgiJGf2LGmbWJSmE7EgJPJ5uC4iNJG7JFnLDkStMyXkAGF5 lbm LhOpeISaHoQVVwCygNPbUbFSbeRiwdaCCeCA9BbYR7QEYnW48gVGWhWJGuV2VhNIF1KRC+Xt0DRKTjqE VbKI3SYvnZ8U3hJ2xBEd5+9m4ZCP63RwAzyDw8PBbGKIDI2JQVIWh68epDEDGw3xQWiuCu2m/+PH6MqY z54hqaD9HtvGmVp+9e3bwL0cST9R+/pDKkKcFqZi1u //EFL8sxvx/+KIMZHNr2WAIsa0o7KKaX8xiqcW3z+e0Lb8/O5cyEtXTF+WXaeSUCzxFboeWJ8/Grw9fi /Y3LJd8eonalgLow7quNt4z2D3nveb+9tmUcMsZ1zqdwHEjAmt4PR5JUc81O5bhjZHga4F/mnUFY1/[employer] [file] X6FKEgS6CcFHWjXcHiNOPrVqBdHeZkMI7JNh4HLmV3OPT5jNOtLd3OEjBrFHKZUhGrWZ7CFVn= ID Date Data Source [id number] 07/16/2020 01:44:01 PM [facility] Name Value Range Interpretation Code Description Data Marlen rce(s) Supporting Document(s) History and Physical [facility] YPVNBq6tWwSNWzJk45/FUCimSDBqz4EeMXdoAPy1NXibHYTvS5GyPEX9hG8kWJL2AGlNAmIbQyLsWUF4 lbm [file] ID Date Data Source [id number] 07/16/2020 12:40:52 PM [facility] Name Value Range Interpretation Code Description Data Marlen rce(s) Supporting Document(s) Leukocytes [#/volume] in Blood by Automated count 4.5 10*3/uL 4-10 [facility] Erythrocytes [#/volume] in Blood by Automated count 3.20 10*6/uL 4.6- 6.[address] [facility] Hemoglobin [Mass/volume] in Blood 8.9 g/dL 13.5-[address] [facility] Hematocrit [Volume Fraction] of Blood by Automated count 27.0 % 4 1-[address] [facility] Erythrocyte mean corpuscular volume [Entitic volume] by Auto mated count 84.5 fL 80-96 [facility] Erythrocyte mean corpuscular hemoglobin [Entitic mass] by Automated count 27.8 pg 27-33 [facility] Erythrocyte mean corpuscular hemoglobin concentration [Mass/volume] by Automated count 33.0 g/dL 32.0-36.0 [facility]th[facility] distribution width [Ratio] by Automated count 16.9 % 11.5-14.[address] [facility] Platelets [#/volume] in Blood by Automated count 178 10*3/uL 150-400 [facility] ID Date Data Source [id number] 07/16/2020 01:06:46 PM [facility] Name Value Range Interpretation Code Description Data Marlen rce(s) Supporting Document(s) Albumin [Mass/volume] in Serum or Plasma by Bromocresol green (BCG) dye binding method 2.8 g/dL 3.5-5.2 L [facility] Bilirubin.total [Mass/volume] in Serum or Plasma 0.3 mg/dL <1.2 [facility] Calcium [Mass/volume] in Serum or Plasma 7.8 mg/dL 8.6-10.[address] [facility] Chloride [Moles/volume] in Serum or Plasma 107 mmol/L 98-107 [facility] Creatinine [Mass/volume] in Serum or Plasma 0.75 mg/dL 0.70-1.20 [facility] Glucose [Mass/volume] in Serum or Plasma 117 mg/dL 70-140 [facility] Alkaline phosphatase [Enzymatic activity/volume] in Serum or Plasma 59 U/L 40-129 [facility] Potassium [Moles/volume] in Serum or Plasma 3.8 mmol/L 3.4-5.1 [facility] Protein [Mass/volume] in Serum or Plasma 4.5 g/dL 6.4-8.[address] [facility] Sodium [Moles/volume] in Serum or Plasma 135 mmol/L 136-[address] [facility] Aspartate aminotransferase [Enzymatic activity/volume] in Serum or Plasma 31 U/L <40 [facility] Urea nitrogen [Mass/volume] in Serum or Plasma 8 mg/dL 6-20 [facility] Osmolality of Serum or Plasma by calculation 279 mosm/kg 275-300 [facility] Creatinine/Urea nitrogen [Mass Ratio] in Serum or Plasma 11 [facility] Bicarbonate [Moles/volume] in Serum 23 mmol/L 22-29 [facility] Alanine aminotransferase [Enzymatic activity/volume] in Seru m or Plasma 18 U/L <41 [facility] Anion gap 3 in Serum or Plasma 5 mmol/L 8-[address] [facility] Glomerular filtration rate/1.73 sq M pre dicted among non-blacks [Volume Rate/Area] in Serum or Plasma by Creatinine-based formula (MDRD) >[address] [facility] Glomerular filtration rate/1.73 sq M pre dicted among blacks [Volume Rate/Area] in Serum or Plasma by Creatinine-based formula (MDRD) >60 [facility] ID Date Data Source [id number] 07/16/2020 03:19:28 PM [facility] Name Value Range Interpretation Code Description Data Marlen rce(s) Supporting Document(s) Cancer Ag 19-9 [Units/volume] in Serum or Plasma 10 U/mL <35 [facility] This test uses Jayce CA 19-9 electrochem iluminescent immunoassay. Results obtained with different test methods or kits cannot be used interchangeably. CA 19-9 is useful in monitoring pancreatic, hepatobiliary, gastric, hepatocelllular, and colorectal cancer. CA 19-9 value regardless of level, should not be interpreted as absolute evidence of the presence or absence of malignant disease. ID Date Data Source [id number] 07/16/2020 03:19:28 PM Health system Value Range Interpretation Code Description Data Marlen rce(s) Supporting Document(s) Carcinoembryonic Ag [Mass/volume] in Serum or Plasma 6.3 ng/ml <3.[address] [facility] Levels of CEA should not be interpreted as absoulute evidence of the presence or absence of disease. It should not be used as a screening test for Cancer. CEA values obtained using different methodologies cannot be used interchangeably. This method is manufactured by [employer] and is an electrochemiluminesence immunoassay. ID Date Data Source [id number] 07/16/2020 03:19:28 PM Health system Value Range Interpretation Code Description Data Marlen rce(s) Supporting Document(s) Pqqmq-6-Dpmczmfckuq [Mass/volume] in Serum or Plasma <9 [facility] ID Date Data Source [id number] 07/16/2020 12:29:10 PM Health system Value Range Interpretation Code Description Data Marlen rce(s) Supporting Document(s) Glucose [Mass/volume] in Capillary blood by Glucometer 106 mg/dL 70- 140 [facility] ID Date Data Source [id number] 07/16/2020 08:01:04 AM Health system Value Range Interpretation Code Description Data Marlen rce(s) Supporting Document(s) Glucose [Mass/volume] in Capillary blood by Glucometer 108 mg/dL 70- 140 [facility] ID Date Data Source [id number] 07/16/2020 04:19:36 AM Health system Value Range Interpretation Code Description Data Marlen rce(s) Supporting Document(s) Glucose [Mass/volume] in Capillary blood by Glucometer 82 mg/dL 70- 140 [facility] ID Date Data Source [id number] 07/16/2020 02:27:27 AM Health system Value Range Interpretation Code Description Data Marlen rce(s) Supporting Document(s) Glucose [Mass/volume] in Capillary blood by Glucometer 91 mg/dL 70- 140 [facility] ID Date Data Source [id number] 07/16/2020 01:19:02 AM Health system Value Range Interpretation Code Description Data Marlen rce(s) Supporting Document(s) Glucose [Mass/volume] in Capillary blood by Glucometer 95 mg/dL 70- 140 [facility] ID Date Data Source [id number] 07/16/2020 12:19:06 AM Health system Value Range Interpretation Code Description Data Marlen rce(s) Supporting Document(s) Glucose [Mass/volume] in Capillary blood by Glucometer 98 mg/dL 70- 140 [facility] ID Date Data Source [id number] 07/16/2020 12:16:56 AM Health system Value Range Interpretation Code Description Data Marlen rce(s) Supporting Document(s) History and Physical [facility] LCPEHy1xUrGMVzRk22/CUUrjAUNqm1UpHHohNQy0BUjzTKHoH8WlABX9iX5wSSP2YBcGRzBwChSyPOC7 lbm [file] bw0zXTKWHhLOqwwD7z+O8/vp of global marketing/EZPil5SdOLFBP779+bZEJ+UDdl4LnA7f98reYlu014Su79a/+x1vaVB [file] ICAgICAgICAgICAgICAgICAgICAgICAgICAgICAgICAgICAgICAgICAgICAgICAgICAgICAgDQogICAg ICAgICAgICAgICAgICAgICAgICAgICAgICAgICAgIC AgICAgICAgICAgICAgICAgICAgICAgICAgICAgICAgICAgICAgICAgICAgICAgICAgICAgICAgICAgIC AgICAgDQogICAgICAgICAgICAgICAgICAgICAgICAgICAgICAgICAgICAgICAgICAgICAgICAgICAgIC AgICAgICAgICAgICAgICAgICAgICAgICAgICAgICAg ICAgICAgICAgICAgICAgDQogICAgICAgICAgICAgICAgICAgICAgICAgICAgICAgICAgICAgICAgICAg ICAgICAgICAgICAgICAgICAgICAgICAgICAgICAgICAgICAgICAgICAgICAgICAgICAgICAgICAgDQog ICAgICAgICAgICAgICAgICAgICAgICAgICAgICAgIC AgICAgICAgICAgICAgICAgICAgICAgICAgICAgICAgICAgICAgICAgICAgICAgICAgICAgICAgICAgIC AgICAgICAgDQogICAgICAgICAgICAgICAgICAgICAgICAgICAgICAgICAgICAgICAgICAgICAgICAgIC AgICAgICAgICAgICAgICAgICAgICAgICAgICAgICAg ICAgICAgICAgICAgICAgICAgDQogICAgICAgICAgICAgICAgICAgICAgICAgICAgICAgICAgICAgICAg ICAgICAgICAgICAgICAgICAgICAgICAgICAgICAgICAgICAgICAgICAgICAgICAgICAgICAgICAgICAg DQogICAgICAgICAgICAgICAgICAgICAgICAgICAgIC AgICAgICAgICAgICAgICAgICAgICAgICAgICAgICAgICAgICAgICAgICAgICAgICAgICAgICAgICAgIC AgICAgICAgICAgDQogICAgICAgICAgICAgICAgICAgICAgICAgICAgICAgICAgICAgICAgICAgICAgIC AgICAgICAgICAgICAgICAgICAgICAgICAgICAgICAg ICAgICAgICAgICAgICAgICAgICAgDQogICAgICAgICAgICAgICAgICAgICAgICAgICAgICAgICAgICAg ICAgICAgICAgICAgICAgICAgICAgICAgICAgICAgICAgICAgICAgICAgICAgICAgICAgICAgICAgICAg GRHsHQk6J8vdGDQvQHMaBB1eRWf2Oe5+DQoNCmVuZH D5feHjcY5XHF2dt2KgYXgePGXzj1MpHHz0PJ0TPYIxEAhqQJ0WGYtgoc0CICGnMXQinQGGt6yyGxLaUM O9WSDpLvoxZQ0TGRNxX4nhjpSjAZIgZOAKOFjnIDEZFBdiFBFKYOFrWAAfUvXgTvOvZYGpHJ8BHUImX5 12qrLiNE8NQk6EEzVrQM6tdk1YHdRkXPRkBmzGNpe9 BJhsQU4NpOWgwTKfOFAvBYLSBhSrU8tex7XjRtGeNSJFOUooKN9Jl9ZsgXXhXEs+Je8KFP3td7HcSZmp SXHzQU2ocb4JFVuWCmCwL1VtcEwtELirJKMugCJRpAtmYJYMkZZxGEOQPSUfpXYuTN10UaJdUtXrAGL5 RLdeDI0nHHzyEK4SLUB9VJbrYZIgBEEgR4hZXzDrCD WoELFxgDbrWW3PPyQjB7ElnbEvzNWsTSAcBYSQPg6+CUbdqtLzXddCIuGaKGZem2PgNUf8SH4IINUfHS huLB8MLBMfxC2xESwcLW4ZSaGjODEpQJFVSpScD29yeKQhXMq2R2OwSoVwJECzYkaxYEJeAVptHsBhDO MgWyBdDQogID4+ID4+JUpwXC0HMYrlnpTzMYCbWu5Y REKmFEAlAZ3gJCKrNDTjP0X7aOuhBLQKRgKjH5knqvpoZX7iNNTfX701uIuhtwHtWIYnLDDxHn5GKGJj BCY1HFVhhCIxMyfwKRYXBLdpAT4MqHGjUTR2mC7pCHwsTKLiYMHaK6nQVfXfjCimCR59jHyxyfVfvTFr DQo+Oj3BIO0bj9YpVJp4unIeNZhuGOOwCLzrQOQhWH LnUANvRLN0BKY1YFQIFgLyVFMqFOJuUGulHDGkDCTztl9EYTYhPWVhCaY4ZTTyOESjGKGbOQzgPBSpCF W2CUG4GVTtTQJyVX6IEeFvXFIbKGXnVDgsTXBqBEUpay2EBZFyFWIrQRP6AEBvJRFmQHXcUKayCNTbIP Y0LhunJDSxYEPpVH1LQiThGSVsGTaaMZPwUMNaQPUq bk0ZAYUyQSGeKOR2PYNyFKGuCIGwDAcePEWsSEHdQvPdHGOuVIGgUC5XUdIeLMTqVZA3ECGkGELaFQSj xn7YFSLrNGBdYPLjXyNfHSSvTWVxISyeLPGxQJF4RxFsEZNcJPPjVS1HUiXzHYHzJMSpOGoqGISsRGQu of1GTAEjFPMeSsN9NkOgMBKeUHBeHKqkTHWaHCJ6Gu JyEFVxPEFnDS0PAkWaGJSyAQk5NDHeMHUkANAboi1EWLUrEPHdTyV0NrLcJNNcJTNoWVcjQHNcGQI7Qw GlSJVvHZVyHJ6UVpHsKZQdOHx1SRReUVRrKCItqw4VEXHtMOGfUHW0SoYhELPlQXPoMVquEMGwIOQfNK C2WXNmODBzTS4CNdOnFPTjOyS2YCLfCWRjSQXdtu3Z HYEwLLCjALe9HZCcPHGaHPGuNLusZBYxGFEsYInsAOZfCZGaKG3NNdKfDQOvWeIgCqdqCTQzIUIifq7T JGUyWSDbWuB2DeVoKVOwORAvAVcnNWRaSQRpTNylUIXcOFPsVV1RAzNkCGEiRpJ5LQfaLMEzZRYgdl8P IIDdSQAiOzS4BnItXUIkATCdRDslQUEdMDA2KCZfHS DuGMSrKJ0FHtGbBVQhRdC4MKNwENKaKMZcwf8KRDWxXVLvUFluGOJwUJNkCPVlZKh3wgTaxTSbVBm5SE 9AK6DhagZjMfJIAm6Kw901RZJvXOCzVn4BG4euSe9xBRTtBNVPFi1VVKy6WqZiSzAaJZWpINEbYIVpQY L6OGKiWpZoPSwrChFfORG+WVfbVpBnUUJ6OPY4BGT8 CKCqXHw9UMEnH4U7ZQO8PzJkWS6xQOKFGl3+GXmasTAjeHkfTBXQPoJ2SIw9KFxiWGYYIl6I ID Date Data Source [id number] 07/16/2020 12:03:58 AM Health system Value Range Interpretation Code Description Data Marlen rce(s) Supporting Document(s) Glucose [Mass/volume] in Capillary blood by Glucometer 130 mg/dL 70- 140 [facility] ID Date Data Source [id number] 07/15/2020 11:38:11 PM Health system Value Range Interpretation Code Description Data Marlen rce(s) Supporting Document(s) Glucose [Mass/volume] in Capillary blood by Glucometer 58 mg/dL 70- [address] [facility] ID Date Data Source [id number] 07/15/2020 09:27:33 PM Health system Value Range Interpretation Code Description Data Marlen rce(s) Supporting Document(s) Leukocytes [#/volume] in Blood by Automated count 5.0 10*3/uL 4-10 [facility] Erythrocytes [#/volume] in Blood by Automated count 3.51 10*6/uL 4.6- 6.[address] [facility] Hemoglobin [Mass/volume] in Blood 9.9 g/dL 13.5-[address] [facility] Hematocrit [Volume Fraction] of Blood by Automated count 29.7 % 4 1-[address] [facility] Erythrocyte mean corpuscular volume [Entitic volume] by Auto mated count 84.6 fL 80-96 [facility] Erythrocyte mean corpuscular hemoglobin [Entitic mass] by Automated count 28.2 pg 27-33 [facility] Erythrocyte mean corpuscular hemoglobin concentration [Mass/volume] by Automated count 33.4 g/dL 32.0-36.0 [facility] Erythrocyte distribution width [Ratio] by Automated count 16.8 % 11.5-14.[address] [facility] Platelets [#/volume] in Blood by Automated count 171 10*3/uL 150-400 [facility] ID Date Data Source [id number] 07/15/2020 09:32:29 PM [facility] Name Value Range Interpretation Code Description Data Marlen rce(s) Supporting Document(s) Albumin [Mass/volume] in Serum or Plasma by Bromocresol green (BCG) dye binding method 3.4 g/dL 3.5-5.2 L [facility] Bilirubin.total [Mass/volume] in Serum or Plasma 1.2 mg/dL <1.[address] [facility] Calcium [Mass/volume] in Serum or Plasma 8.1 mg/dL 8.6-10.[address] [facility] Chloride [Moles/volume] in Serum or Plasma 102 mmol/L 98-107 [facility] Creatinine [Mass/volume] in Serum or Plasma 0.62 mg/dL 0.70-1.[address] [facility] Glucose [Mass/volume] in Serum or Plasma 78 mg/dL 70-140 [facility] Alkaline phosphatase [Enzymatic activity/volume] in Serum or Plasma 67 U/L 40-129 [facility] Potassium [Moles/volume] in Serum or Plasma 3.6 mmol/L 3.4-5.1 [facility] Protein [Mass/volume] in Serum or Plasma 5.2 g/dL 6.4-8.[address] [facility] Sodium [Moles/volume] in Serum or Plasma 132 mmol/L 136-[address] [facility] Aspartate aminotransferase [Enzymatic activity/volume] in Serum or Plasma 25 U/L <40 [facility] Urea nitrogen [Mass/volume] in Serum or Plasma 10 mg/dL 6-20 [facility] Osmolality of Serum or Plasma by calculation 272 mosm/kg 275-[address] [facility] Creatinine/Urea nitrogen [Mass Ratio] in Serum or Plasma 16 [facility] Bicarbonate [Moles/volume] in Serum 23 mmol/L 22-29 [facility] Alanine aminotransferase [Enzymatic activity/volume] in Seru m or Plasma 16 U/L <41 [facility] Anion gap 3 in Serum or Plasma 7 mmol/L 8-[address] [facility] Glomerular filtration rate/1.73 sq M pre dicted among non-blacks [Volume Rate/Area] in Serum or Plasma by Creatinine-based formula (MDRD) >[address] [facility] Glomerular filtration rate/1.73 sq M pre dicted among blacks [Volume Rate/Area] in Serum or Plasma by Creatinine-based formula (MDRD) >60 [facility] ID Date Data Source [id number] 07/15/2020 09:29:39 PM [facility] Name Value Range Interpretation Code Description Data Marlen rce(s) Supporting Document(s) Hemoglobin A1c/Hemoglobin.total in Blood by HPLC 9.2 % 4.0-6.[address] [facility] Glucose mean value [Mass/volume] in Blood Estimated fr om glycated hemoglobin 217 mg/dL <[address] [facility] ID Date Data Source [id number] 07/15/2020 11:38:11 PM Health system Value Range Interpretation Code Description Data Marlen rce(s) Supporting Document(s) Glucose [Mass/volume] in Capillary blood by Glucometer 71 mg/dL 70- 140 [facility] ID Date Data Source [id number] 07/15/2020 04:14:51 PM Health system Value Range Interpretation Code Description Data Marlen rce(s) Supporting Document(s) Progress Note [facility] [id number] 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 Discharge Date: 07/15/20 Most Recent Lab Results: [...] % (Auto) 56.0, Lymph % (Auto) 30.4, [place] % (Auto) 10.3, Eos % (Auto) 2.1, [...] % (Auto) 59.4, Lymph % (Auto) 27.8, [place] % (Auto) 10.5, Eos % (Auto) 1.4, [...] % (Auto) 56.5, Lymph % (Auto) 29.9, [place] % (Auto) 10.9, Eos % (Auto) 1.9, [...] again(they can do only diagnostic endoscopy at [facility]) recommendations were to transfer the patient to [...] Condition: Stable Discharge Detail Disposition: Transfer - [facility] Rec New Prescriptions: No Action aspirin 81 [...] rce(s) Supporting Document(s) ID Date Data Source [id number] 07/15/2020 02:13:00 PM EST [facility] @ PT ALREADY DRAWN BEFORE AND RAN BEFORE CANCELLATION@NOTICED.... [facility] Name Value Range Interpretation Code Description Data Marlen rce(s) Supporting Document(s) Leukocytes [#/volume] in Blood by Automated count 5.3 10*3/uL 4.45-10 .71 N [facility] Erythrocytes [#/volume] in Blood by Automated count 2.39 10*6/uL 4.3-6.1 Below low normal [facility] Hemoglobin [Moles/volume] in Blood 6.4 g/dL 13-18 No range defined, or normal ranges don't apply [facility] @Review test & document.Called to Mark Choudhury @ 2184 by Cristina Jacobs. Resultsread back.Repeated by: Cristina Jacobs 07/15/20 1412.Result Confirmation: 6.4 g/dL Hematocrit [Volume Fraction] of Blood by Automated count 20.7 % 42-52 Below low normal [facility] Erythrocyte mean corpuscular volume [Ent itic volume] in Cord blood by Automated count 86.6 fL 80-96 N [facility] ital Erythrocyte mean corpuscular hemoglobin [Entitic mass] by Automated count 26.7 pg 27-31 Below low normal [facility] pital Erythrocyte mean corpuscular hemoglobin concentration [Mass/volume] in Cord blood 30.9 g/dL 33-37 Below low normal [facility] Erythrocyte distribution width [Entitic volume] by Automated cou nt 16 % 11-15 Above high normal [facility] Platelets [#/volume] in Blood by Automated count 147 10*3/uL 130-472 N [facility] Platelet mean volume [Entitic volume] in Blood 10.1 fL 9.1-13.1 N [facility] Neutrophils/100 leukocytes in Blood by Automated count 56.5 % 41- 77 N [facility] Neutrophils [#/volume] in Blood by Automated count 3.0 U 1.7-7.6 N [facility] Lymphocytes/100 leukocytes in Blood by Automated count 29.9 % 14- 46 N [facility] Lymphocytes [#/volume] in Blood by Automated count 1.6 U 0.6-4.6 N [facility] Monocytes/100 leukocytes in Blood by Automated count 10.9 % 4-12 N [facility] Monocytes [#/volume] in Blood by Automated count 0.6 U 0.2-1.2 N [facility] Eosinophils/100 leukocytes in Blood by Automated count 1.9 % 0-7 N [facility] Eosinophils [#/volume] in Blood by Automated count 0.1 U 0.0-0.5 N [facility] Basophils/100 leukocytes in Blood by Automated count 0.4 % 0.4-1 .3 N [facility] Basophils [#/volume] in Blood by Automated count 0.0 U 0.0-0.2 N [facility] NUCLEATED RED BLOOD CELL 0 % [facility] NUCLEATED RED BLOOD CELL# 0 U [facility] Immature granulocytes [Presence] in Blood by Automated count 0-2 N [facility] Immature granulocytes [#/volume] in Blood by Automated count 0.0 U 0-0.1 N [facility] Manual Differential panel - Blood NO [facility] ID Date Data Source [id number] 07/15/2020 10:52:00 AM [facility] "NORMAL" FOR IFOB FECAL OCCULT BLOOD IS "NEGATIVE"THE [employer] iFOB IS AN IMMUNOCHEMICAL FECAL OCCULT BLOODTEST Name Value Range Interpretation Code Description Data Marlen rce(s) Supporting Document(s) IFOB ICT fecal occult bld Negative [facility] ID Date Data Source [id number] 07/15/2020 08:35:00 AM [facility] Name: FALGUNI ALSTON JR : 1975 Age: 45 MR#: [id number] Admit Date: 07/13/20 Provider: Adan Garza MD [...] Appearance Clear, Urine pH 6.5, Ur Specific [place] 1.017, Urine Protein Negative, Urine Ketones Negative, [...] % (Auto) 56.0, Lymph % (Auto) 30.4, [place] % (Auto) 10.3, Eos % (Auto) 2.1, [...] (A uto) 59.4, Lymph % (Auto) 27.8, [place] % (Auto) 10.5, Eos % (Auto) 1.4, [...] rce(s) Supporting Document(s) ID Date Data Source [id number] 07/15/2020 08:05:00 AM EST [facility] Name Value Range Interpretation Code Description Data Marlen rce(s) Supporting Document(s) Leukocytes [#/volume] in Blood by Automated count 5.6 10*3/uL 4.45-10 .71 N [facility] Erythrocytes [#/volume] in Blood by Automated count 2.64 10*6/uL 4.3-6.1 Below low normal [facility] Hemoglobin [Moles/volume] in Blood 7.1 g/dL 13-18 Below low no rmal [facility] Hematocrit [Volume Fraction] of Blood by Automated count 22.2 % 42-52 Below low normal [facility] Erythrocyte mean corpuscular volume [Ent itic volume] in Cord blood by Automated count 84.1 fL 80-96 N [facility] ital Erythrocyte mean corpuscular hemoglobin [Entitic mass] by Automated count 26.9 pg 27-31 Below low normal [facility] pital Erythrocyte mean corpuscular hemoglobin concentration [Mass/volume] in Cord blood 32.0 g/dL 33-37 Below low normal [facility] Erythrocyte distribution width [Entitic volume] by Automated cou nt 16 % 11-15 Above high normal [facility] Platelets [#/volume] in Blood by Automated count 151 10*3/uL 130-472 N [facility] Platelet mean volume [Entitic volume] in Blood 10.5 fL 9.1-13.1 N [facility] Neutrophils/100 leukocytes in Blood by Automated count 59.4 % 41- 77 N [facility] Neutrophils [#/volume] in Blood by Automated count 3.3 U 1.7-7.6 N [facility] Lymphocytes/100 leukocytes in Blood by Automated count 27.8 % 14- 46 N [facility] Lymphocytes [#/volume] in Blood by Automated count 1.6 U 0.6-4.6 N [facility] Monocytes/100 leukocytes in Blood by Automated count 10.5 % 4-12 N [facility] Monocytes [#/volume] in Blood by Automated count 0.6 U 0.2-1.2 N [facility] Eosinophils/100 leukocytes in Blood by Automated count 1.4 % 0-7 N [facility] Eosinophils [#/volume] in Blood by Automated count 0.1 U 0.0-0.5 N [facility] Basophils/100 leukocytes in Blood by Automated count 0.4 % 0.4-1 .3 N [facility] Basophils [#/volume] in Blood by Automated count 0.0 U 0.0-0.2 N [facility] NUCLEATED RED BLOOD CELL 0 % [facility] NUCLEATED RED BLOOD CELL# 0 U [facility] Immature granulocytes [Presence] in Blood by Automated count 0-2 N [facility] Immature granulocytes [#/volume] in Blood by Automated count 0.0 U 0-0.1 N [facility] Manual Differential panel - Blood NO [facility] ID Date Data Source [id number] 07/15/2020 05:26:00 PM EST [facility] [id number] AN PC TRANSFUSED 07/15/20 1644 [id number] AN PC TRANSFUSED 07/15/20 1433 @07/15/20 0806: Pre Op? added. RFLXG = T RX.@07/15/20 0806: Pretransfusion? added. RFLXG = TRX.@07/15/20 0806: Inpatient? added. RFLXG = TRX.Called [place] [facility] ([place]) @ 1415...1 PC ready. 07/15/2020 TKHOrder product and Administer when available: YHGB: 6.4Called [facility]([place])2nd unit PC ready @1525 07/15/2020 TKHTransfused within 90 days?: NPre Op? (IF Yes, give date): N Name Value Range Interpretation Code Description Data Marlen rce(s) Supporting Document(s) ID Date Data Source [id number] 07/15/2020 05:26:00 PM [facility] [id number] AN PC TRANSFUSED 07/15/20 1644 [id number] AN PC TRANSFUSED 07/15/20 1433 @07/15/20 0806: Pre Op? added. RFLXG = T RX.@07/15/20 08: Pretransfusion? added. RFLXG = TRX.@07/15/20 0806: Inpatient? added. RFLXG = TRX.Called [facility] ([place]) @ 1415...1 PC ready. 07/15/2020 TKHOrder product and Administer when available: YHGB: 6.4Called [facility]2nd unit PC ready @1525 07/15/2020 TKHTransfused within 90 days?: NPre Op? (IF Yes, give date): N Name Value Range Interpretation Code Description Data Marlen rce(s) Supporting Document(s) Blood bank studies (set) No A [facility] @To complete the specimen, you MUST pull the specimen back@up and answer the Preop, Transfusion and Inpatient@questions. Perform a second Type if needed. Blood Type [facility] Antibody Screen NEGATIVE [facility] ID Date Data Source [id number] 07/15/2020 05:26:00 PM EST [facility] [id number] AN PC TRANSFUSED 07/15/20 1644 [id number] AN PC TRANSFUSED 07/15/20 1433 @07/15/20 0806: Pre Op? added. RFLXG = T RX.@07/15/20 0806: Pretransfusion? added. RFLXG = TRX.@07/15/20 0806: Inpatient? added. RFLXG = TRX.Called [facility] ([place]) @ 1415...1 PC ready. 07/15/2020 TKHOrder product and Administer when available: YHGB: 6.4Called [facility]2nd unit PC ready @1525 07/15/2020 TKHTransfused within 90 days?: NPre Op? (IF Yes, give date): N Name Value Range Interpretation Code Description Data Marlen rce(s) Supporting Document(s) Pre Op? No [facility] ID Date Data Source [id number] 07/15/2020 05:26:00 PM EST [facility] [id number] AN PC TRANSFUSED 07/15/20 1644 [id number] AN PC TRANSFUSED 07/15/20 1433 @07/15/20 0806: Pre Op? added. RFLXG = T RX.@07/15/20 08: Pretransfusion? added. RFLXG = TRX.@07/15/20 0806: Inpatient? added. RFLXG = TRX.Called [facility] ([place]) @ 1415...1 PC ready. 07/15/2020 TKHOrder product and Administer when available: YHGB: 6.4Called [facility]2nd unit PC ready @1525 07/15/2020 TKHTransfused within 90 days?: NPre Op? (IF Yes, give date): N Name Value Range Interpretation Code Description Data Marlen rce(s) Supporting Document(s) Pretransfusion? Yes A [facility] A Blood Type Confirmation has been added to this patient.A NEW specimen must be collected for the confirmation.No blood products will be issued until the second blood typeis complete. ID Date Data Source [id number] 07/15/2020 05:26:00 PM [facility] [id number] AN PC TRANSFUSED 07/15/20 1644 [id number] AN PC TRANSFUSED 07/15/20 1433 @07/15/20 0806: Pre Op? added. RFLXG = T RX.@07/15/20 0806: Pretransfusion? added. RFLXG = TRX.@07/15/20 0806: Inpatient? added. RFLXG = TRX.Called Ayaan Snyder ([place]) @ 1415...1 PC ready. 07/15/2020 TKHOrder product and Administer when available: YHGB: 6.4Called [facility]([place])2nd unit PC ready @1525 07/15/2020 TKHTransfused within 90 days?: NPre Op? (IF Yes, give date): N Name Value Range Interpretation Code Description Data Marlen rce(s) Supporting Document(s) Inpatient? Yes A [facility] A Blood Type Confirmation has been added to this patient.A NEW specimen must be collected for the confirmation.No blood products will be issued until the second blood typeis complete. ID Date Data Source [id number] 07/15/2020 07:36:00 AM [facility] Name: FLAGUNI ALSTON JR : 1975 Age: 45 MR#: [id number] Admit Date: 07/13/20 Provider: Morro Luque MD [...] Appearance Clear, Urine pH 6.5, Ur Specific [place] 1.017, Urine Protein Negative, Urine Ketones Negative, [...] % (Auto) 56.0, Lymph % (Auto) 30.4, [place] % (Auto) 10.3, Eos % (Auto) 2.1, [...] abuse will continue to monitor for withdrawal -[facility] protocol thiamine, folic acid, multivitamin [...] Value Range Interpretation Code Description Data Marlen [facility](s) Supporting Document(s) ID Date Data Source [id number] 07/15/2020 09:03:00 AM EST [facility] Special Instructions: can use blood samp le in labADD ON TEST Name Value Range Interpretation Code Description Data Marlen rce(s) Supporting Document(s) Iron [Mass/volume] in Serum or Plasma 34 ug/dL 65-175 Below low normal [facility] Iron values may be falsely elevated in s johann samples frompatients treated with anticoagulants (e.g., hemodialysispatients) Iron binding capacity [Moles/volume] in Serum or Plasma 13 20-55 Below low normal [facility] Iron binding capacity [Mass/volume] in Serum or Plasma 255 ug/dL 250 -450 N [facility] ID Date Data Source [id number] 07/15/2020 07:34:00 AM EST [facility] Name Value Range Interpretation Code Description Data Marlen rce(s) Supporting Document(s) Magnesium [Mass/volume] in Serum or Plasma 2.4 mg/dL 1.3-2.7 N [facility] ID Date Data Source [id number] 07/15/2020 07:27:00 AM [facility] Name Value Range Interpretation Code Description Data Marlen rce(s) Supporting Document(s) Leukocytes [#/volume] in Blood by Automated count 5.3 10*3/uL 4.45-10 .71 N [facility] Erythrocytes [#/volume] in Blood by Automated count 2.59 10*6/uL 4.3-6.1 Below low normal [facility] Hemoglobin [Moles/volume] in Blood 7.0 g/dL 13-18 Below low no rmal [facility] Hematocrit [Volume Fraction] of Blood by Automated count 22.0 % 42-52 Below low normal [facility] Erythrocyte mean corpuscular volume [Ent itic volume] in Cord blood by Automated count 84.9 fL 80-96 N [facility] Erythrocyte mean corpuscular hemoglobin [Entitic mass] by Automated count 27.0 pg 27-31 N [facility] Erythrocyte mean corpuscular hemoglobin concentration [Mass/volume] in Cord blood 31.8 g/dL 33-37 Below low normal [facility] Erythrocyte distribution width [Entitic volume] by Automated cou nt 16 % 11-15 Above high normal [facility] Platelets [#/volume] in Blood by Automated count 149 10*3/uL 130-472 N [facility] Platelet mean volume [Entitic volume] in Blood 10.7 fL 9.1-13.1 N [facility] Neutrophils/100 leukocytes in Blood by Automated count 56.0 % 41- 77 N [facility] Neutrophils [#/volume] in Blood by Automated count 3.0 U 1.7-7.6 N [facility] Lymphocytes/100 leukocytes in Blood by Automated count 30.4 % 14- 46 N [facility] Lymphocytes [#/volume] in Blood by Automated count 1.6 U 0.6-4.6 N [facility] Monocytes/100 leukocytes in Blood by Automated count 10.3 % 4-12 N [facility] Monocytes [#/volume] in Blood by Automated count 0.6 U 0.2-1.2 N [facility] Eosinophils/100 leukocytes in Blood by Automated count 2.1 % 0-7 N [facility] Eosinophils [#/volume] in Blood by Automated count 0.1 U 0.0-0.5 N [facility] Basophils/100 leukocytes in Blood by Automated count 0.4 % 0.4-1 .3 N [facility] Basophils [#/volume] in Blood by Automated count 0.0 U 0.0-0.2 N [facility] NUCLEATED RED BLOOD CELL 0 % [facility] NUCLEATED RED BLOOD CELL# 0 U [facility] Immature granulocytes [Presence] in Blood by Automated count 0-2 N [facility] Immature granulocytes [#/volume] in Blood by Automated count 0.0 U 0-0.1 N [facility] Manual Differential panel - Blood NO [facility] ID Date Data Source [id number] 07/15/2020 07:33:00 AM EST [facility] Name Value Range Interpretation Code Description Data Marlen rce(s) Supporting Document(s) Urea nitrogen [Mass/volume] in Serum or Plasma 19 mg/dL 9-23 N [facility] Sodium [Moles/volume] in Serum or Plasma 135 mmol/L 132-146 [facility] Potassium [Moles/volume] in Serum or Plasma 3.7 mmol/L 3.5-5.5 [facility] Chloride [Moles/volume] in Serum or Plasma 103 mmol/L 99-109 [facility] Carbon dioxide, total [Moles/volume] in Serum or Plasma 28 mmol/L 20 -31 [facility] Anion gap in Serum or Plasma 8 mmol/L 8-16 N [facility] Glucose [Mass/volume] in Serum or Plasma 180 mg/dL 74-106 Above high normal [facility] Creatinine 0.8 mg/dL 0.5-1.1 [facility] Glomerular filtration rate/1.73 sq M.pre dicted [Volume Rate/Area] in Serum or Plasma Greater Than 60 ABOVE 60 [facility] Calcium [Mass/volume] in Serum or Plasma 7.2 mg/dL 8.5-10.1 Below low normal [facility] ID Date Data Source [id number] 07/14/2020 11:27:00 AM EST [facility] Reason for ordering culture: Abnormal fi ndings UAMethod of Collection:: Voided Name Value Range Interpretation Code Description Data Marlen rce(s) Supporting Document(s) Color of Urine [facility] Appearance of Urine CLEAR [facility] pH of Urine by Test strip 6.5 5-8 [facility] Specific gravity of Urine by Refractometry 1.017 1.005-1.030 [facility] Leukocyte esterase [Presence] in Urine by Test strip NEGAT RHETT [facility] Nitrite [Presence] in Urine by Test strip NEGATIVE [facility] Protein [Presence] in Urine by Test strip NEGATIVE [facility] Glucose [Mass/volume] in Urine by Automated test strip > 1000 mg /dl NEGATIVE Abnormal (applies to non-numeric results) [facility] Ketones [Presence] in Urine by Test strip NEGATIVE [facility] Urobilinogen [Presence] in Urine 0.2-1 EU/dl [facility] Bilirubin.total [Presence] in Urine by Automated test strip NEGATIVE [facility] Erythrocytes [#/volume] in Urine by Test strip NEGATIVE NEGATIVE [facility] URINE MICROSCOPIC? (CIF) NO [facility] ID Date Data Source [id number] 07/14/2020 10:38:00 AM EST [facility] Oxygen Delivery Method Room Air Name Value Range Interpretation Code Description Data Marlen rce(s) Supporting Document(s) pH of Venous blood 7.49 7.25-7.45 [facility] Carbon dioxide [Partial pressure] in Venous blood 41.2 mm[Hg] 41.0-51 .0 N [facility] Oxygen [Partial pressure] in Venous blood 36.3 mm[Hg] 25.0-40.0 N [facility] 68.6 Bicarbonate [Moles/volume] in Venous blood 31.1 mmol/L 22.0- 26.0 [facility] Base excess in Venous blood by calculation 7.1 -3.0-3.0 Abov e [facility] Carbon dioxide, total [Moles/volume] in Venous blood 32.4 mmol/L 23-30 Above high normal [facility] 21.0@Reenter manual test result: 21.0%@b y Caitie Delgadillo at 07/14/20 1037. ID Date Data Source [id number] 07/14/2020 07:53:00 AM EST [facility] Name: FALGUNI ALSTON JR : 1975 Age: 45 MR#: [id number] Admit Date: 07/13/20 Provider: Morro Luque MD [...] 86.3 H, Lymph % (Auto) 6.2 L, [place] % (Auto) 6.3, Eos % (Auto) 0.0, [...] % (Auto) 65.7, Lymph % (Auto) 24.1, [place] % (Auto) 8.5, Eos % (Auto) 0.6, [...] abuse will continue to monitor for withdrawal -[facility] protocol thiamine, folic acid, multivitamin [...] rce(s) Supporting Document(s) ID Date Data Source [id number] 07/14/2020 06:15:00 AM EST [facility] Name Value Range Interpretation Code Description Data Marlen rce(s) Supporting Document(s) Urea nitrogen [Mass/volume] in Serum or Plasma 51 mg/dL 9-23 Above high normal [facility] Sodium [Moles/volume] in Serum or Plasma 128 mmol/L 132-146 Below low normal [facility] @Review & document.@A repeat was not nee ded due to historical results. Potassium [Moles/volume] in Serum or Plasma 3.3 mmol/L 3.5-5.5 Below low normal [facility] Chloride [Moles/volume] in Serum or Plasma 92 mmol/L 99-109 [place] w low normal [facility] Carbon dioxide, total [Moles/volume] in Serum or Plasma 31 mmol/L 20 -31 N [facility] Anion gap in Serum or Plasma 8 mmol/L 8-16 N [facility] Glucose [Mass/volume] in Serum or Plasma 72 mg/dL 74-106 Below low [facility] Creatinine 1.0 mg/dL 0.5-1.1 [facility] Glomerular filtration rate/1.73 sq M.pre dicted [Volume Rate/Area] in Serum or Plasma Greater Than 60 ABOVE 60 [facility] Calcium [Mass/volume] in Serum or Plasma 7.8 mg/dL 8.5-10.1 Below low normal [facility] ID Date Data Source [id number] 07/14/2020 06:22:00 AM EST [facility] Name Value Range Interpretation Code Description Data Marlen rce(s) Supporting Document(s) Leukocytes [#/volume] in Blood by Automated count 12.2 10*3/uL 4.45-10.71 Above high normal [facility] Erythrocytes [#/volume] in Blood by Automated count 3.50 10*6/uL 4.3-6.1 Below low normal [facility] Hemoglobin [Moles/volume] in Blood 9.3 g/dL 13-18 Below low no rmal [facility] Hematocrit [Volume Fraction] of Blood by Automated count 28.0 % 42-52 Below low normal [facility] Erythrocyte mean corpuscular volume [Ent itic volume] in Cord blood by Automated count 80.0 fL 80-96 N [facility] Erythrocyte mean corpuscular hemoglobin [Entitic mass] by Automated count 26.6 pg 27-31 Below low normal [facility] pital Erythrocyte mean corpuscular hemoglobin concentration [Mass/volume] in Cord blood 33.2 g/dL 33-37 N [facility] Erythrocyte distribution width [Entitic volume] by Automated cou nt 16 % 11-15 Above high normal [facility] Platelets [#/volume] in Blood by Automated count 225 10*3/uL 130-472 No range defined, or normal ranges don't apply [facility] Repeated by: Varsha Salazar 07/14/20 06 21.Result Confirmation: 228 10e3/ul Platelet mean volume [Entitic volume] in Blood 10.7 fL 9.1-13.1 N [facility] Neutrophils/100 leukocytes in Blood by Automated count 65.7 % 41- 77 N [facility] Neutrophils [#/volume] in Blood by Automated count 8.0 U 1.7-7.6 Above high normal [facility] Lymphocytes/100 leukocytes in Blood by Automated count 24.1 % 14- 46 N [facility] Lymphocytes [#/volume] in Blood by Automated count 2.9 U 0.6-4.6 N [facility] Monocytes/100 leukocytes in Blood by Automated count 8.5 % 4-12 N [facility] Monocytes [#/volume] in Blood by Automated count 1.0 U 0.2-1.2 N [facility] Eosinophils/100 leukocytes in Blood by Automated count 0.6 % 0-7 N [facility] Eosinophils [#/volume] in Blood by Automated count 0.1 U 0.0-0.5 N [facility] Basophils/100 leukocytes in Blood by Automated count 0.2 % 0.4-1.3 Below low normal [facility] Basophils [#/volume] in Blood by Automated count 0.0 U 0.0-0.2 N [facility] NUCLEATED RED BLOOD CELL 0 % [facility] NUCLEATED RED BLOOD CELL# 0 U [facility] Immature granulocytes [Presence] in Blood by Automated count 0-2 N [facility] Immature granulocytes [#/volume] in Blood by Automated count 0.1 U 0-0.1 N [facility] Manual Differential panel - Blood NO [facility] ID Date Data Source [id number] 07/15/2020 09:02:00 AM EST [facility] @07/15/20 0807: Type NC added. RFLXG = T YPE.@ ROBBIE DATE was changed from 07/15/20 to 07/14/20@ by CRISTOBAL. Old specimen was [id number]. Name Value Range Interpretation Code Description Data Marlen rce(s) Supporting Document(s) Blood Type [facility] ID Date Data Source [id number] 07/14/2020 01:27:00 AM [facility] Name Value Range Interpretation Code Description Data Marlen rce(s) Supporting Document(s) Urea nitrogen [Mass/volume] in Serum or Plasma 58 mg/dL 9-23 Above high normal [facility] Sodium [Moles/volume] in Serum or Plasma 126 mmol/L 132-146 Below low normal [facility] @Review & document.@A repeat was not nee ded due to historical results. Potassium [Moles/volume] in Serum or Plasma 3.2 mmol/L 3.5-5.5 Below low normal [facility] Chloride [Moles/volume] in Serum or Plasma 87 mmol/L 99-109 [place] w low normal [facility] Carbon dioxide, total [Moles/volume] in Serum or Plasma 30 mmol/L 20 -31 N [facility] Anion gap in Serum or Plasma 12 mmol/L 8-16 N [facility] [facility] Glucose [Mass/volume] in Serum or Plasma 195 mg/dL 74-106 Above high normal [facility] Creatinine 1.1 mg/dL 0.5-1.1 [facility] Glomerular filtration rate/1.73 sq M.pre dicted [Volume Rate/Area] in Serum or Plasma Greater Than 60 ABOVE 60 [facility] Calcium [Mass/volume] in Serum or Plasma 7.6 mg/dL 8.5-10.1 DL [facility] @A REPEAT WAS NOT INDICATED DUE TO RELAT ED TESTS. ID Date Data Source [id number] 07/13/2020 10:58:00 PM [facility] [address] [place] [address] [phone] NAME SEX PT STATUS ACCOUNT NUMBER FALGUNI ALSTON Rico Barnett ADM IN [id number] ORDERING PHYSICIAN LOCATION MEDICAL RECORD NO. William Ramos [facility] [id number] ATTENDING PHYSICIAN DATE OF DATE OF EXAM/TIME [...] rce(s) Supporting Document(s) ID Date Data Source [id number] 07/13/2020 10:58:00 PM [facility] @07/13/20 1847: 4hr Lactic Acid added. R FLXG = RFX LACTIC. Name Value Range Interpretation Code Description Data Marlen rce(s) Supporting Document(s) Lactate [Mass/volume] in Serum or Plasma 1.2 mmol/L 0.5-2.2 [facility] A HIGH RESULT ON THIS 4HR LACTIC ACID WI LL NOT REFLEXANOTHER - YOU MUST ORDER ONE IF YOU WANT IT REPEATED ID Date Data Source [id number] 07/13/2020 10:42:00 PM [facility] RYAN COVID-19 IS AN ISOTHERMAL NA A [...] rce(s) Supporting Document(s) ID Date Data Source [id number] 07/13/2020 09:06:00 PM [facility] Name: FALGUNI ALSTON JR, DOB: 1975 Age: 45 MR#: [id number] Admit Date: 07/13/20 Provider: William Ramos Room [...] SVT with a heart rate approximately 1 06573 those treated with 2 doses of diltiazem [...] No current occupational status: 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 Acute kidney injury -BUN/EVENT MANAGER 64/1.5 the time of admission -Received 2 [...] available for consult. Note was transcribed using [employer] phone. The note was reviewed for accuracy [...] rce(s) Supporting Document(s) ID Date Data Source [id number] 07/13/2020 08:24:00 PM [facility] [address] [facility] [address] [phone] NAME SEX PT STATUS ACCOUNT NUMBER FALGUNI ALSTON JR [facility] [id number] ORDERING PHYSICIAN LOCATION MEDICAL RECORD NO. Shruti Hernández MD ER [id number] ATTENDING PHYSICIAN DATE OF DATE OF EXAM/TIME [...] rce(s) Supporting Document(s) ID Date Data Source [id number] 07/13/2020 07:15:00 PM [facility] Oxygen Delivery Method Nasal Cannula7.50 38.1 Name Value Range Interpretation Code Description Data Marlen rce(s) Supporting Document(s) Oxygen [Partial pressure] in Gas 77.3 mm[Hg] 74.0-100.0 N [facility] 96.029.96.4 Carbon dioxide, total [Moles/volume] in Arterial blood 31.1 mmol /L 22.0-30.0 Above high normal [facility] 210.7 Specimen site Narrative LEFT RADIAL ARTERY [facility] @[facility] manual test result: LEFT RADIAL @by Shawna King at 07/13/201914. Blood gas studies (set) Performed [facility] @[facility] manual test result: [email or web address]@[email or web address] King at 07/13/201914. ID Date Data Source [id number] 07/13/2020 06:57:00 PM [facility] [address] [place] [address] [phone] NAME SEX PT STATUS ACCOUNT NUMBER FALGUNI ALSTON JR [facility] ER [id number] ORDERING PHYSICIAN LOCATION MEDICAL RECORD NO. Shruti Hernández MD ER [id number] ATTENDING PHYSICIAN DATE OF DATE OF EXAM/TIME [...] Trans Dt/Tm: Trans by: DT Prt Dt/Tm: [id number]: Total DLP = 0.00 mGy-cm Fluoroscopy Time (in secs): Name Value Range Interpretation Code Description Data Marlen rce(s) Supporting Document(s) ID Date Data Source [id number] 07/13/2020 06:56:00 PM [facility] [address] [place] [id number] [phone] NAME SEX PT STATUS ACCOUNT NUMBER FALGUNI ALSTON Rico Barnett [facility] [id number] ORDERING PHYSICIAN LOCATION MEDICAL RECORD NO. Shruti Hernández MD ER [id number] ATTENDING PHYSICIAN DATE OF DATE OF EXAM/TIME [...] Shruti Brown MD on 07/13/201855 Signed By Shurti Brown MD on 07/13/201855 Date Time CC: Olivia Woods; Shruti Brown MD Techn: FROSA Trans Dt/Tm: Trans by: DT Prt Dt/Tm: [id number]: Total DLP = 0.00 mGy-cm Fluoroscopy Time (in secs): Name Value Range Interpretation Code Description Data Marlen rce(s) Supporting Document(s) ID Date Data Source [id number] 07/13/2020 06:19:00 PM [facility] ED Physician Documentation NAME: FALGUNI ALSTON JR : 1975 AGE: 45 MR#: [id number] SERVICE DATE: 07/13/[address]: Shruti Hernández [...] Vaccination: No Immunizations Up to Date: Yes [facility] Medical History Alcohol abuse Chronic pancreatitis Diabetes mellitus, type 2 Gastroesophageal reflux disease History of varicella Hypertension Recurrent DKA Smoker Surgical History History of vasectomy Family History (Updated 04/05/18 @ 14:20 by aMrk Reyes M.D.) Mother No problems noted. 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 [...] 86.3 H, Lymph % (Auto) 6.2 L, [place] % (Auto) 6.3, Eos % (Auto) 0.0, [...] 07/13/20 18:10: PT 11.0, INR 1.0, PTT (Cloud) 22.8 07/13/20 18:10: Sodium 121 L, Potassium [...] rce(s) Supporting Document(s) ID Date Data Source [id number] 07/13/2020 06:47:00 PM [facility] Special Instructions: Lab may order repe at [...] Plasma 64 mg/dL 9-23 Above high normal [facility] Sodium [Moles/volume] in Serum or Plasma 121 mmol/L 132-146 Below low [facility] @Review & document.Repeated by: Varsha Bosch 07/13/201843.Result Confirmation: 121 mmol/L Potassium [Moles/volume] in Serum or Plasma 3.1 mmol/L 3.5-5.5 Below low normal [facility] Chloride [Moles/volume] in Serum or Plasma 76 mmol/L 99-109 Belo w low normal [facility] @Review test & document. []Called to RAFAEL KNOX @ 184 by Varsha Salazar. Resultsread back.Repeated by: Varsha Salazar 07/13/201845.Result Confirmation: 76 mmol/l Carbon dioxide, total [Moles/volume] in Serum or Plasma 32 mmol/ L 20-31 Above high normal [facility] Anion gap in Serum or Plasma 16 mmol/L 8-16 N L [facility] Glucose [Mass/volume] in Serum or Plasma 300 mg/dL 74-106 Above high normal [facility] Creatinine 1.5 mg/dL 0.5-1.1 Above high normal [facility] Glomerular filtration rate/1.73 sq M.pre dicted [Volume Rate/Area] in Serum or Plasma 51 ml/min ABOVE 60 [facility] Alanine aminotransferase [Enzymatic acti vity/volume] in Serum or Plasma by With P-5'-P 35 U/L 10-49 N [facility] ital Aspartate aminotransferase [Enzymatic ac tivity/volume] in Serum or Plasma by With P-5'-P 19 U/L 0-33 N [facility] pital Alkaline phosphatase [Enzymatic activity/volume] in Serum or Plasma 116 U/L 45-129 N [facility] Calcium [Mass/volume] in Serum or Plasma 8.9 mg/dL 8.5-10.1 N [facility] Bilirubin.total [Mass/volume] in Serum or Plasma 1.0 mg/dL 0.3-1.2 N [facility] Albumin [Mass/volume] in Serum or Plasma by Bromocresol purple (BCP) dye binding method 3.6 g/dL 3.2-4.8 N [facility] ital Protein [Mass/volume] in Serum or Plasma 7.4 g/dL 5.7-8.2 [facility] ID Date Data Source [id number] 07/13/2020 06:47:00 PM [facility] Special Instructions: Lab may order repe at test if initial test elevatedPhysician If elevated, reflex second test in 4-6 hrs @07/13/20 182: MANUAL DIFF added. RFLXG = DIFF. Anticoagulant or Thrombolytic medication : Heparin @07/13/201824: MANUAL DIFF added. RFLXG = DIFF. Name Value Range Interpretation Code Description Data Marlen rce(s) Supporting Document(s) Lactic w Rfx (if elevated) 2.5 mmol/L 0.5-2.2 Above high normal [facility] Called to EYAL KNOX @ 1847 by Varsha Bosch. Resultsread back. ID Date Data Source [id number] 07/13/2020 06:47:00 PM [facility] Special Instructions: Lab may order repe at [...] count 21.4 10*3/uL 4.45-10.71 Above high normal [facility] Erythrocytes [#/volume] in Blood by Automated count 4.99 10*6/uL 4.3- 6.1 N [facility] Hemoglobin [Moles/volume] in Blood 13.3 g/dL 13-18 N [facility] Hematocrit [Volume Fraction] of Blood by Automated count 39.4 % 42-52 Below low normal [facility] Erythrocyte mean corpuscular volume [Ent itic volume] in Cord blood by Automated count 79.0 fL 80-96 Below low normal [facility] Erythrocyte mean corpuscular hemoglobin [Entitic mass] by Automated count 26.7 pg 27-31 Below low normal [facility] pital Erythrocyte mean corpuscular hemoglobin concentration [Mass/volume] in Cord blood 33.8 g/dL 33-37 N [facility] ital Erythrocyte distribution width [Entitic volume] by Automated cou nt 16 % 11-15 Above high normal [facility] Platelets [#/volume] in Blood by Automated count 346 10*3/uL 130-472 N [facility] Platelet mean volume [Entitic volume] in Blood 9.8 fL 9.1-13.1 N [facility] Neutrophils/100 leukocytes in Blood by Automated count 86.3 % 41-77 Above high normal [facility] Neutrophils [#/volume] in Blood by Automated count 18.5 U 1.7-7.6 Above high normal [facility] Lymphocytes/100 leukocytes in Blood by Automated count 6.2 % 14-46 Below low normal [facility] Lymphocytes [#/volume] in Blood by Automated count 1.3 U 0.6-4.6 N [facility] Monocytes/100 leukocytes in Blood by Automated count 6.3 % 4-12 N [facility] Monocytes [#/volume] in Blood by Automated count 1.3 U 0.2-1.2 Above high normal [facility] Eosinophils/100 leukocytes in Blood by Automated count 0.0 % 0-7 N [facility] Eosinophils [#/volume] in Blood by Automated count 0.0 U 0.0-0.5 N [facility] Basophils/100 leukocytes in Blood by Automated count 0.1 % 0.4-1.3 Below low normal [facility] Basophils [#/volume] in Blood by Automated count 0.0 U 0.0-0.2 N [facility] NUCLEATED RED BLOOD CELL 0 % [facility] NUCLEATED RED BLOOD CELL# 0 U [facility] Immature granulocytes [Presence] in Blood by Automated count 0-2 N [facility] Immature granulocytes [#/volume] in Blood by Automated count 0.2 U 0-0.1 Above high normal [facility] Manual Differential panel - Blood Manual Diff Added [facility] ID Date Data Source [id number] 07/13/2020 06:48:00 PM [facility] Special Instructions: Lab may order repe at test if initial test elevatedPhysician If elevated, reflex second test in 4-6 hrs @07/13/20 1825: MANUAL DIFF added. RFLXG = DIFF. Anticoagulant or Thrombolytic medication : Heparin @07/13/20 1825: MANUAL DIFF added. RFLXG = DIFF. Name Value Range Interpretation Code Description Data Marlen rce(s) Supporting Document(s) Prothrombin Time (Patient) 11.0 s 9.6-12.3 N [facility] INR 1.0 0.9-1.1 [facility] THE INR IS OPERATIONALLY DEFINED FOR SUSAN SH PLASMA FROMPATIENTS STABILIZED ON ORAL ANTICOAGULANTS.ROUTINE ANTICOAGULANT THERAPY 2.0-3.0RECURRENT SYSTEMIC EMBOLISM/HEART VALVE REPLACEMENT 2.5-3.5 aPTT.lupus sensitive (LA screen) 22.8 s 22.7-31.6 [facility] ID Date Data Source [id number] 07/18/2020 06:15:00 PM [facility] Special Instructions: Lab may order repe at test if initial test elevatedPhysician If elevated, reflex second test in 4-6 hrs @07/13/20 1825: MANUAL DIFF added. RFLXG = DIFF. Anticoagulant or Thrombolytic medication : Heparin @07/13/20 182: MANUAL DIFF added. RFLXG = DIFF. Name Value Range Interpretation Code Description Data Marlen rce(s) Supporting Document(s) Bacteria identified in Blood by Culture [facility] NO GROWTH AFTER 5 DAYS ID Date Data Source [id number] 07/13/2020 06:47:00 PM [facility] Special Instructions: Lab may order repe at test if initial test elevatedPhysician If elevated, reflex second test in 4-6 hrs @07/13/201824: MANUAL DIFF added. RFLXG = DIFF. Anticoagulant or Thrombolytic medication : Heparin @07/13/201824: MANUAL DIFF added. RFLXG = DIFF. Name Value Range Interpretation Code Description Data Marlen rce(s) Supporting Document(s) Cells counted [#] 100 [facility] Neutrophils [#/volume] in Blood by Manual count 85 % 41-77 Above high normal [facility] Lymphocytes [#/volume] in Blood by Manual count 14 % 14-46 N [facility] Monocytes [#/volume] in Blood by Manual count 1 % 4-12 B elow low normal [facility] Platelets [#/volume] in Blood by Estimate APPEARS NORMAL NORMAL [facility] Morphology [Interpretation] in Blood Narrative APPEARS NORMAL NORMAL [facility] ID Date Data Source [id number] 07/13/2020 09:45:00 PM [facility] Name Value Range Interpretation Code Description Data Marlen rce(s) Supporting Document(s) Magnesium [Mass/volume] in Serum or Plasma 2.9 mg/dL 1.3-2.7 Above high normal [facility] ID Date Data Source [id number] 07/13/2020 09:46:00 PM [facility] Name Value Range Interpretation Code Description Data Marlen rce(s) Supporting Document(s) Hemoglobin A1c % 10.3 % 4.0-6.0 Above high normal L [facility] The following ranges may be u sed for interpretation of results: HGBA1C degree of glucose control: Greater than 8%: Action Suggested * Less than 7%: Goal of Diabetic Therapy Less than 6%: NormalFactors such as duration of diabetes, adherence to therapyand the age of the patient should also be considered inassessing the degree of blood glucose control.* High risk of developing detention complications such asretinopathy, nephropathy, neuropathy, cardiopathy, etc. Some danger of hypoglycemic reaction in Type I diabetics.Some glucose intolerant individuals and "Sub Clinical"diabetics may demonstrate HGBA1C levels in this area. Glucose mean value [Moles/volume] in Blood Estimated f rom glycated hemoglobin 249 mg/dL [facility] An A1C of 7% - the goal of diabetic ther apy - is equivalentto an EAG of 154 mg/dl. ID Date Data Source [id number] 07/13/2020 06:48:00 PM EST [facility] Name Value Range Interpretation Code Description Data Marlen rce(s) Supporting Document(s) Amylase [Enzymatic activity/volume] in Serum or Plasma 36 U/L 30- 118 N [facility] ID Date Data Source [id number] 07/13/2020 06:48:00 PM [facility] Name Value Range Interpretation Code Description Data Marlen rce(s) Supporting Document(s) Lipase [Enzymatic activity/volume] in Serum or Plasma 27 U/L 73-393 Below low normal [facility] ID Date Data Source [id number] 07/13/2020 12:00:00 AM [facility] Name Value Range Interpretation Code Description Data Marlen rce(s) Supporting Document(s) SARS-CoV2 Rapid PCR [facility] This lab was ordered by [facility] and reported by [facility]. ID Date Data Source [id number] 05/30/2020 10:22:00 AM EDT [facility] [address] [place] [id number] [phone] NAME SEX PT STATUS ACCOUNT NUMBER FALGUNI ALSTON JR Barnett REG REF [id number] ORDERING PHYSICIAN LOCATION MEDICAL RECORD NO. Olivia Woods [id number] ATTENDING PHYSICIAN DATE OF DATE OF EXAM/TIME [...] rce(s) Supporting Document(s) ID Date Data Source [id number] 05/28/2020 03:23:00 PM EDT [facility] Name Value Range Interpretation Code Description Data Marlen rce(s) Supporting Document(s) Urea nitrogen [Mass/volume] in Serum or Plasma 19 mg/dL 9-23 N [facility] Sodium [Moles/volume] in Serum or Plasma 134 mmol/L 132-146 N [facility] Potassium [Moles/volume] in Serum or Plasma 4.2 mmol/L 3.5-5.5 N [facility] Chloride [Moles/volume] in Serum or Plasma 103 mmol/L 99-109 N [facility] Carbon dioxide, total [Moles/volume] in Serum or Plasma 25 mmol/L 20 -31 N [facility] Anion gap in Serum or Plasma 10 mmol/L 8-16 N [facility] Glucose [Mass/volume] in Serum or Plasma 238 mg/dL 74-106 Above high normal [facility] Creatinine 0.9 mg/dL 0.5-1.1 [facility] Glomerular filtration rate/1.73 sq M.pre dicted [Volume Rate/Area] in Serum or Plasma Greater Than 60 ABOVE 60 [facility] Alanine aminotransferase [Enzymatic acti vity/volume] in Serum or Plasma by With P-5'-P 43 U/L 10-49 N [facility] ital Aspartate aminotransferase [Enzymatic ac tivity/volume] in Serum or Plasma by With P-5'-P 14 U/L 0-33 N [facility] pital Alkaline phosphatase [Enzymatic activity/volume] in Serum or Plasma 106 U/L 45-129 N [facility] Calcium [Mass/volume] in Serum or Plasma 9.4 mg/dL 8.5-10.1 [facility] Bilirubin.total [Mass/volume] in Serum or Plasma 0.3 mg/dL 0.3-1.2 [facility] Albumin [Mass/volume] in Serum or Plasma by Bromocresol purple (BCP) dye binding method 3.7 g/dL 3.2-4.8 [facility] ital Protein [Mass/volume] in Serum or Plasma 7.2 g/dL 5.7-8.2 [facility] ID Date Data Source [id number] 06/04/2020 07:52:00 AM EDT [facility] Name Value Range Interpretation Code Description Data Marlen rce(s) Supporting Document(s) MEDMATCH See scanned report [facility] ID Date Data Source [id number] 05/28/2020 03:23:00 PM EDT [facility] Name Value Range Interpretation Code Description Data Marlen rce(s) Supporting Document(s) Magnesium [Mass/volume] in Serum or Plasma 2.3 mg/dL 1.3-2.7 [facility] ID Date Data Source [id number] 06/04/2020 07:52:00 AM EDVa [facility] Name Value Range Interpretation Code Description Data Marlen rce(s) Supporting Document(s) Parathyrin.intact [Mass/volume] in Serum or Plasma 20 pg/mL 14-64 [facility] Interpretive Guide Intact PTH Calcium -------Normal Parathyroid Normal NormalHypoparathyroidism Low or Low Normal LowHyperparathyroidism Primary Normal or High High Secondary High Normal or Low Tertiary High HighNon- Parathyroid Hypercalcemia Low or Low Normal HighTHIS TEST WAS PERFORMED AT:[employer] [id number] MERATI,MD ID Date Data Source [id number] 05/28/2020 03:23:00 PM EDT [facility] Name Value Range Interpretation Code Description Data Marlen rce(s) Supporting Document(s) Thyrotropin [Units/volume] in Serum or Plasma by Detec tion limit <= 0.005 mIU/L 1.29 u[iU]/mL 0.35-5.50 [facility] ID Date Data Source [id number] 05/28/2020 01:03:00 PM EDT [facility] Patient Name: FALGUNI ALSTON JR : 1975 Sex: M Pt Unit #: [id number] Location:[facility] Provider: Visit Date/Time: 05/28/20 Primary Insurance: [facility] Secondary Insurance: Self Pay ADDENDUM Pt seen and examined by this practitioner in conjunction with student. Documentation reviewed and entered in accordance with exam. Orders and referrals placed by practitioner. Coding done by practitioner. <Electronically signed by Olivia Woods [employer]> 07/01/20 1347 Intake Vital Signs 05/28/20 13:04 [...] still feels pins and needleswhen he walks. Manufacturing Operator Required: No Accompanied by: Self / Same as Patient Is patient in pain?: Yes (Bilateral foot pain) Pain scale (1-10): 3 Allergies No Known Drug Allergies Allergy (Verified 10/03/19 14:25) Medications aspirin 81 mg PO DAILY atorvastatin 80 mg PO QDAY blood sugar diagnostic (GE100 Blood Glucose Test Strip) test blood sugar four times daily: fasting and pre-parandial blood-glucose meter FanGager (MyBrandz) Brand E11.65 bid testing folic acid 1 [...] tartrate 100 mg PO BID multivit with [id number] 0.4-600 mg-mcg (One Daily For Men) 1 [...] Screening Have you traveled outside of [facility] or [facility] in the last 14 days.: No Has patient experienced coronavirus symptoms: No [facility] Medical History (Updated 05/29/20 @ 05:47 by [...] No 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 occupational status: 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 pets and animals: Yes pets and [...] Yes drive intox or ride w/ intox 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 water heater temp set [...] LUZ-I/ARB; Denies microalbuminuria, proteinuria, on dialysis and [employer] is controlled at home History of retinopathy: No Date of last dilated eye exam: 05/28/20 History of neuropathy: Yes Date of last foot exam: 05/28/20 Neuropathy details: Reports on medications for pain; Denies loss of protective sensation, history offoot ulcers, history of amputations, autonomic neuropathy, gastroparesis and followed by resin remover At risk counseled: Yes Dentures: No Visual/sensory: [...] mellitus with diabetic neuropathy, unspecified SNOMED Code(s): 721495702524638 Category: Medical Qualifiers: Diabetes mellitus detention insulin use: with detention use Qualified Code(s): E11.40 - Type 2 diabetes mellitus with diabetic neuropathy, unspecified; Z79.4 - long-term (current) use of insulin Plan - Koki Pierre: Continue to follow with endocrinology. Retinal exam. Refuses principal law clerk referral. Gabapentin does increased for diabetic neuropathy [...] - Benign neoplasm of pancreas SNOMED Code(s): 66788119 Category: Medical Plan - Koki Johnsonon: U/S reordered Plan - Olivia Woods NP: PT is asking for US. Will re-order to assess status of benign tumor Orders: Orders: US Abd single organ/quadrant 2 Days (3) Finger dysfunction: Status: Acute Code(s): R29.898 - Other symptoms and signs involving the musculoskeletal system SNOMED Code(s): 147675512 Category: Medical Plan - Olivia Woods NP: [...] Hepatic failure, unspecified without coma SNOMED Code(s): 22695986 Category: Medical Qualifiers: Liver failure chronicity: unspecified [...] I10 - Essential (primary) hypertension SNOMED Code(s): 77911004 Category: Medical Plan - Olivia Woods NP: bp is at goal. will continue lisinoprial as patient reports that he is tolerating without side effects. Orders: Orders: CMP 05/28/20 PTH - Parathyroid Horm Intact 05/28/20 MAGNESIUM 05/28/20 (6) ETOH abuse: Status: Acute Code(s): F10.10 - Alcohol abuse, uncomplicated SNOMED Code(s): 02486919 Category: Social Hx Plan - Olivia Woods NP: history of etoh abuse. will get medmatch today Orders: Orders: MedMatch Drug Pnl + Confirm 09/21/20 (7) Substance abuse: Status: Acute Code(s): F19.10 - Other psychoactive substance abuse, uncomplicated SNOMED Code(s): 26388517 Category: Medical Plan - Olivia Woods NP: History of this. will get medmatch Orders: Orders: MedMatch Drug Pnl + Confirm 05/28/20 (8) Tobacco use disorder, continuous: Status: Acute Onset Date: 11/28/14 Code(s): F17.209 - Nicotine dependence, unspecified, with unspecified nicotine-induced disorders SNOMED Code(s): 436554556 Category: Medical Plan - Olivia Woods NP: continues to be daily smoker. patient denies need for low dose ct at this time Orders: Referrals: Retinal Imaging - Referral (9) Diabetes mellitus type 2, uncontrolled: Status: Acute Code(s): E11.65 - Type 2 diabetes mellitus with hyperglycemia SNOMED Code(s): 747994331 Category: Medical Qualifiers: Glycemic state: with hyperglycemia [...] tabs 0RF <Electronically signed by Olivia Woods [employer]> 05/29/20 0549 <Electronically signed by Koki Pierre > 05/28/20 1514 Name Value Range Interpretation Code Description Data Marlen rce(s) Supporting Document(s) ID Date Data Source [id number] 05/24/2020 08:39:00 AM EDT [facility] ([facility]) Name Value Range Interpretation Code Description Data Marlen rce(s) Supporting Document(s) Glucose [Mass/volume] in Serum or Plasma 337 [facility] ([facility]) Hemoglobin A1c/Hemoglobin.total in Blood 10.2 [facility] ([facility]) ID Date Data Source [id number] 03/06/2020 12:51:00 PM EDT [facility] Patient Name: FALGUNI ALSTON JR : 1975 Sex: M Pt Unit #: [id number] Location:[facility] Provider: Visit Date/Time: 03/06/20 Primary Insurance: [facility] Secondary Insurance: Self Pay Intake Vital Signs [...] neuropathy in his feet and for sleep. 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 Velez. Increase a.m. dose of Basaglar insulin to 45 units. Will maintain p.m. dose of 35 units. Dietary discussed at length. Patient refuses referral to dietary services here at [facility]. Reports will be compliant with dietary teaching at Dr. Maurer. Patient was asked to have diabetic eye exam today. Patient agrees to go [place] the [place] and have diabetic eye exam. Orders: Referrals: Endocrinology Referral (2) Liver failure: Status: Acute Code(s): K72.90 - Hepatic failure, unspecified without coma SNOMED Code(s): 75115136 Category: Medical Plan - Olivia Woods NP: Will recheck liver enzymes in 6 weeks. Will obtain ultrasound of the abdomen as last liver enzymes were elevated. Orders: Orders: US Abdomen complete 1 Week (3) Benign pancreatic tumor: Status: Acute Code(s): D13.6 - Benign neoplasm of pancreas SNOMED Code(s): 10921841 Category: Medical Plan - Olivia Woods NP: [...] psychoactive substance abuse, in remission SNOMED Code(s): 189810743 Category: Medical Plan - Olivia Woods NP: Will order a Medwatch as patient has history of substance abuse. Orders: Orders: MedWatch - Drug Compliance pnl 03/06/20 (5) Diabetic neuropathy, type II diabetes mellitus: Status: Acute Code(s): E11.40 - Type 2 diabetes mellitus with diabetic neuropathy, unspecified SNOMED Code(s): 712528960701564 Category: Medical Plan - Olivia Woods NP: [...] Signed By: <Electronically signed by Olivia Woods MISSILE CONTROL PILOT> Date/Time Signed: 03/08/20 0738 Name Value Range Interpretation Code Description Data Marlen rce(s) Supporting Document(s) ID Date Data Source [id number] 02/21/2020 04:49:00 PM EDT [facility] Name Value Range Interpretation Code Description Data Marlen rce(s) Supporting Document(s) Urine Random Creatinine 195.0 mg/dL [facility] THERE IS NO ESTABLISHED RANGE FOR RANDOM URINE CREATININE Urine Microalbumin 27.5 mg/L 0.0-29.9 [facility] Ur Malb/Cre Ratio (ACR) 14.1 ug/mg 0.0-30.0 [facility] ID Date Data Source [id number] 02/21/2020 03:42:00 PM EDT [facility] Name Value Range Interpretation Code Description Data Marlen rce(s) Supporting Document(s) Leukocytes [#/volume] in Blood by Automated count 5.7 10*3/uL 4.45-10 .71 N [facility] Erythrocytes [#/volume] in Blood by Automated count 5.16 10*6/uL 4.3- 6.1 N [facility] Hemoglobin [Moles/volume] in Blood 14.2 g/dL 13-18 N [facility] Hematocrit [Volume Fraction] of Blood by Automated count 44.2 % 4 2-52 N [facility] Erythrocyte mean corpuscular volume [Ent itic volume] in Cord blood by Automated count 85.7 fL 80-96 N [facility] Erythrocyte mean corpuscular hemoglobin [Entitic mass] by Automated count 27.5 pg 27-31 N [facility] Erythrocyte mean corpuscular hemoglobin concentration [Mass/volume] in Cord blood 32.1 g/dL 33-37 Below low normal [facility] Erythrocyte distribution width [Entitic volume] by Automated cou nt 16 % 11-15 Above high normal [facility] Platelets [#/volume] in Blood by Automated count 307 10*3/uL 130-472 N [facility] Platelet mean volume [Entitic volume] in Blood 9.8 fL 9.1-13.1 N [facility] Neutrophils/100 leukocytes in Blood by Automated count 55.9 % 41- 77 N [facility] Neutrophils [#/volume] in Blood by Automated count 3.2 U 1.7-7.6 [facility] Lymphocytes/100 leukocytes in Blood by Automated count 34.0 % 14- 46 N [facility] Lymphocytes [#/volume] in Blood by Automated count 2.0 U 0.6-4.6 N [facility] Monocytes/100 leukocytes in Blood by Automated count 7.3 % 4-12 N [facility] Monocytes [#/volume] in Blood by Automated count 0.4 U 0.2-1.2 N [facility] Eosinophils/100 leukocytes in Blood by Automated count 1.6 % 0-7 N [facility] Eosinophils [#/volume] in Blood by Automated count 0.1 U 0.0-0.5 N [facility] Basophils/100 leukocytes in Blood by Automated count 0.9 % 0.4-1 .3 N [facility] Basophils [#/volume] in Blood by Automated count 0.1 U 0.0-0.2 N [facility] NUCLEATED RED BLOOD CELL 0 % [facility] NUCLEATED RED BLOOD CELL# 0 [facility] Immature granulocytes [Presence] in Blood by Automated count 0-2 N [facility] Immature granulocytes [#/volume] in Blood by Automated count 0.0 U 0-0.1 N [facility] Manual Differential panel - Blood NO [facility] ID Date Data Source [id number] 02/21/2020 04:02:00 PM EDT [facility] Name Value Range Interpretation Code Description Data Marlen rce(s) Supporting Document(s) Hemoglobin A1c % 9.5 % 4.0-6.0 Above high normal L [facility] The following ranges may be u sed for interpretation of results: HGBA1C degree of glucose control: Greater than 8%: Action Suggested * Less than 7%: Goal of Diabetic Therapy Less than 6%: NormalFactors such as duration of diabetes, adherence to therapyand the age of the patient should also be considered inassessing the degree of blood glucose control.* High risk of developing rn long term care complications such asretinopathy, nephropathy, neuropathy, cardiopathy, etc. Some danger of hypoglycemic reaction in Type I diabetics.Some glucose intolerant individuals and "Sub Clinical"diabetics may demonstrate HGBA1C levels in this area. Glucose mean value [Moles/volume] in Blood Estimated f rom glycated hemoglobin 226 mg/dL [facility] l An A1C of 7% - the goal of diabetic ther apy - is equivalentto an EAG of 154 mg/dl. ID Date Data Source [id number] 02/21/2020 04:04:00 PM EDT [facility] Name Value Range Interpretation Code Description Data Marlen rce(s) Supporting Document(s) Prothrombin Time (Patient) 9.6 s 9.6-12.3 N [facility] INR 0.9 0.9-1.1 [facility] THE INR IS OPERATIONALLY DEFINED FOR SUSAN SH PLASMA FROMPATIENTS STABILIZED ON ORAL ANTICOAGULANTS.ROUTINE ANTICOAGULANT THERAPY 2.0-3.0RECURRENT SYSTEMIC EMBOLISM/HEART VALVE REPLACEMENT 2.5-3.5 ID Date Data Source [id number] 02/21/2020 04:29:00 PM EDT [facility] Name Value Range Interpretation Code Description Data Marlen rce(s) Supporting Document(s) Urea nitrogen [Mass/volume] in Serum or Plasma 12 mg/dL 9-23 N [facility] Sodium [Moles/volume] in Serum or Plasma 137 mmol/L 132-146 N [facility] Potassium [Moles/volume] in Serum or Plasma 4.2 mmol/L 3.5-5.5 N [facility] Chloride [Moles/volume] in Serum or Plasma 102 mmol/L 99-109 N [facility] Carbon dioxide, total [Moles/volume] in Serum or Plasma 27 mmol/L 20 -31 N [facility] Anion gap in Serum or Plasma 12 mmol/L 8-16 N [facility] Glucose [Mass/volume] in Serum or Plasma 322 mg/dL 74-106 Above high normal [facility] Creatinine 1.1 mg/dL 0.5-1.1 [facility] Glomerular filtration rate/1.73 sq M.pre dicted [Volume Rate/Area] in Serum or Plasma Greater Than 60 ABOVE 60 [facility] Alanine aminotransferase [Enzymatic acti vity/volume] in Serum or Plasma by With P-5'-P 81 U/L 10-[address] [facility] Aspartate aminotransferase [Enzymatic ac tivity/volume] in Serum or Plasma by With P-5'-P 79 U/L 0-33 Above high normal [facility] Alkaline phosphatase [Enzymatic activity/volume] in Serum or Plasma 122 U/L 45-129 N [facility] Calcium [Mass/volume] in Serum or Plasma 8.8 mg/dL 8.5-10.1 N [facility] Bilirubin.total [Mass/volume] in Serum or Plasma 0.4 mg/dL 0.3-1.2 [facility] Albumin [Mass/volume] in Serum or Plasma by Bromocresol purple (BCP) dye binding method 4.0 g/dL 3.2-4.8 N [facility] Protein [Mass/volume] in Serum or Plasma 7.4 g/dL 5.7-8.2 N [facility] ID Date Data Source [id number] 02/21/2020 04:29:00 PM [facility] Name Value Range Interpretation Code Description Data Marlen rce(s) Supporting Document(s) Gamma glutamyl transferase [Enzymatic activity/volume] in Serum or Plasma 118 U/L 15-85 Above high normal [facility] spital @Review & document.Repeated by: Whitney Ramirez 02/21/20 5309.Result Confirmation: 116 U/L ID Date Data Source [id number] 02/21/2020 04:29:00 PM [facility] Name Value Range Interpretation Code Description Data Marlen rce(s) Supporting Document(s) Lipase [Enzymatic activity/volume] in Serum or Plasma 27 U/L 73-393 Below low normal [facility] ID Date Data Source [id number] 02/21/2020 04:29:00 PM [facility] Name Value Range Interpretation Code Description Data Marlen rce(s) Supporting Document(s) Thyroxine (T4) free [Mass/volume] in Serum or Plasma 1.31 ng/dL 0.89- 1.76 N [facility] ID Date Data Source [id number] 02/21/2020 04:29:00 PM [facility] Value Range Interpretation Code Description Data Marlen rce(s) Supporting Document(s) Thyrotropin [Units/volume] in Serum or Plasma by Detec tion limit <= 0.005 mIU/L 0.57 u[iU]/mL 0.35-5.50 [facility] al ID Date Data Source [id number] 02/21/2020 02:28:00 PM [facility] Patient Name: FALGUNI ALSTON : 1975 Sex: M Pt Unit #: [id number] Location:[facility] Provider: Visit Date/Time: 02/21/20 Primary Insurance: [facility] Secondary Insurance: Self Pay Intake Vital Signs [...] all new prescriptions as insurance changed to [employer]OP and uses a [employer] 100 and [employer] 100 test strips. Patient has meter does not need a new one just strips. Patient notes his feet feel like there are pins and needles poking him for past 2 weeks and are painful at night. Patient notes he is 1 pack a day smoker. Manufacturing Operator Required: No Accompanied by: Self / Same as Patient Is patient in pain?: No Allergies No Known Drug Allergies Allergy (Verified 10/03/19 14:25) Medications aspirin (Aspir-) 81 mg PO DAILY atorvastatin 80 mg PO QDAY blood sugar diagnostic (GE100 Blood Glucose Test Strip) test blood sugar four times daily: fasting and pre-parandial blood-glucose meter [employer]ager (MyBrandz) Brand folic acid 1 mg PO DAILY insulin glargine (Lantus Solostar U-100 Insulin) 64 units (0.64 mL) subcut BID insulin lispro (Admelog SoloStar U-100 Insulin lispro) 5 units (0.05 mL) subcut TID PRN MDD 45 units metoprolol tartrate 100 mg PO BID multivit with [id number]-LM-gjopyble 0.4-600 mg-mcg (One Daily For Men) 1 [...] and colleagues, with an educational francisco from [employer]. 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 water heater temp set [...] habitus Orientation: alert, awake and oriented x3 [facility] Head: normal to inspection, normocephalic and [...] Code(s): E78.2 - Mixed hyperlipidemia SNOMED Code(s): 202611278 Category: Medical Plan - Olivia Woods NP: [...] I10 - Essential (primary) hypertension SNOMED Code(s): 46185116 Category: Medical Plan - Olivia Woods NP: [...] 2 diabetes mellitus with hyperglycemia SNOMED Code(s): 944691004 Category: Medical Plan - Olivia Woods NP: [...] - Paroxysmal atrial fibrillati on SNOMED Code(s): 087869176 Category: Medical Plan - Olivia Woods NP: [...] - Benign neoplasm of pancreas SNOMED Code(s): 62218821 Category: Medical Plan - Olivia Woods MISSILE CONTROL PILOT: Patient's records would indicate that he has [...] Hepatic failure, unspecified without coma SNOMED Code(s): 23309170 Category: Medical Plan - Olivia Woods MISSILE CONTROL PILOT: Patient reports that he does have a [...] F10.10 - Alcohol abuse, uncomplicated SNOMED Code(s): 15690148 Category: Social Hx Plan - Olivia Woods [...] Other psychoactive substance abuse, uncomplicated SNOMED Code(s): 73023228 Category: Medical Plan - Olivia Woods NP: [...] Signed By: <Electronically signed by Olivia Woods MISSILE CONTROL PILOT> Date/Time Signed: 02/23/202157 Name Value Range Interpretation Code Description Data Marlen rce(s) Supporting Document(s) ID Date Data Source [id number] 12/21/2019 10:15:00 AM EDT [facility] Name Value Range Interpretation Code Description Data Marlen rce(s) Supporting Document(s) SARS CORONAVIRUS 2 RNA [facility] This lab was ordered by [facility] and reported by [facility]. Procedure Social History Code Duration Value Status Description Data Source(s ) 07/15/2020 02:52:47 PM EST Current every day smoker co mpleted Current every day smoker [facility] 07/15/2020 02:52:47 PM EST Current every day smoker co mpleted Current every day smoker [facility] Smoking 07/15/2020 02:52:00 PM EST Current every day smoker co mpleted Current every day smoker [facility] Smoking 07/15/2020 02:52:00 PM EST Current every day smoker co mpleted Current every day smoker [facility] Alcohol intake 07/15/2020 12:00:00 AM EST Current drinker of al cohol (finding) completed Current drinker of alcohol (finding) [facility] Cigarette pack-years 07/15/2020 12:00:00 AM EST UNK [facility] Cigarettes smoked current (pack per day) - Reported 07/15/20 12:00:00 AM EST UNK [facility] Smoking 07/15/2020 12:00:00 AM EST Current every day smoker co mpleted Current every day smoker [facility] 07/13/2020 06:20:57 PM EST Yes completed Yes [facility] 07/13/2020 06:20:57 PM EST Yes completed Yes [facility] 07/13/2020 06:20:57 PM EST Yes completed Yes [facility] 07/13/2020 06:20:57 PM EST Yes completed Yes [facility] 07/13/2020 06:20:57 PM EST Yes completed Yes [facility] 07/13/2020 06:20:57 PM EST Yes completed Yes [facility] 07/13/2020 06:20:57 PM EST Current every day smoker co mpleted Current every day smoker [facility] Smoking 07/13/2020 06:20:00 PM EST Current every day smoker co mpleted Current every day smoker [facility] 05/28/2020 02:01:00 PM EDT Current every day smoker co mpleted Current every day smoker [facility] Smoking 05/28/2020 02:01:00 PM EDT Current every day smoker co mpleted Current every day smoker [facility] 02/20/2020 02:19:00 PM EDT N/A completed N/A [facility] 02/20/2020 02:19:00 PM EDT No completed No [facility] 02/20/2020 02:19:00 PM EDT N/A completed N/A [facility] 02/20/2020 02:19:00 PM EDT No completed No [facility] 02/20/2020 02:19:00 PM EDT N/A completed N/A [facility] 02/20/2020 02:19:00 PM EDT No completed No [facility] 02/20/2020 02:19:00 PM EDT N/A completed N/A [facility] 02/20/2020 02:19:00 PM EDT No completed No [facility] 02/20/2020 02:19:00 PM EDT Yes completed Yes [facility] 02/20/2020 02:19:00 PM EDT Yes completed Yes [facility] 02/20/2020 02:19:00 PM EDT N/A completed N/A [facility] 02/20/2020 02:19:00 PM EDT No completed No [facility] 02/20/2020 02:19:00 PM EDT Yes completed Yes [facility] 02/20/2020 02:19:00 PM EDT Yes completed Yes [facility] 02/20/2020 02:19:00 PM EDT N/A completed N/A [facility] 02/20/2020 02:19:00 PM EDT No completed No [facility] 02/20/2020 02:19:00 PM EDT Yes completed Yes [facility] 02/20/2020 02:19:00 PM EDT Yes completed Yes [facility] Vital Signs ID Date Data Source UNK Name Value Range Interpretation Code Description Data Source(s) Body mass index (BMI) [Ratio] 23.6 kg/m2 23.6 k g/m2 [facility] ([facility]) Body weight 160.00 [lb_av] 160.00 [lb_av] MED[facility] T ([facility]) Body height 69 [in_i] 69 [in_i] [facility] ([facility]) 5'9" Body temperature 96.7 [degF] 96.7 [degF] [facility] ([facility]) Oxygen saturation in Arterial blood by Pulse oximetry 96 % 96 % [facility] ([facility]) Body mass index (BMI) [Ratio] 24.7 kg/m2 24.7 k g/m2 [facility] ([facility]) Body weight 163.50 [lb_av] 163.50 [lb_av] [facility] T ([facility]) Body height 68.25 [in_i] 68.25 [in_i] [facility] ([facility]) 5'8.25" Heart rate 105 /min 105 /min [facility] ([facility]) Diastolic blood pressure 88 mm[Hg] 88 mm[Hg] [facility] ([facility] Systolic blood pressure 130 mm[Hg] 130 mm[Hg] M EDENT ([facility]) Body mass index (BMI) [Ratio] 23.5 kg/m2 23.5 k g/m2 [facility] ([facility]) Body height 69 [in_i] 69 [in_i] [facility] ([facility]) 5'9" Body weight 159.00 [lb_av] 159.00 [lb_av] MEDEN T ([facility]) Body temperature 98.5 [degF] 98.5 [degF] [facility] ([facility]) Oxygen saturation in Arterial blood by Pulse oximetry 95 % 95 % [facility] ([facility], [facility]) Heart rate 125 /min 125 /min [facility] ([facility], [facility]) Diastolic blood pressure 85 mm[Hg] 85 mm[Hg] [facility] ([facility], [facility]) Systolic blood pressure 119 mm[Hg] 119 mm[Hg] M EDENT ([facility], [facility]) ID Date Data Source [id number] 07/25/2020 07:46:34 AM [facility] Name Value Range Interpretation Code Description Data Source(s) WEIGHT RECORDED 171.8 lb 171.8 lb [facility] Body height Measured 69 in 69 in [facility] TRANSFER FROM [facility] Patient Treatment Plan of Care Planned Activity Planned Date Details Description Data Source (s) sennosides, CORRECTION 8.6 MG Oral Tablet 07/18/2020 12:00:00 AM [facility] ferrous sulfate 325 MG Oral Tablet 07/18/2020 12:00:00 AM [facility] Diclofenac Sodium 0.01 MG/MG Topical Gel 07/18/2020 12:00:00 AM [facility] Cyclobenzaprine hydrochloride 10 MG Oral Tablet 07/18/2020 12:00:00 AM [facility] pantoprazole 40 MG Delayed Release Oral Tablet 07/18/2020 12:00:00 AM [facility] Glucagon 1 MG Injection 07/15/2020 08:25:47 PM [facility] Glucose 0.417 MG/MG Oral Gel 07/15/2020 08:25:47 PM [facility] ondansetron (ZOFRAN) injection 4 mg 07/15/2020 08:24:24 PM [facility] pantoprazole 40 MG Delayed Release Oral Tablet 06/20/2012 12:00:00 AM [facility] Clonidine Hydrochloride 0.1 MG Oral Tablet 03/17/2012 12:00:00 AM [facility]
[2020-10-05] MEDS: PANTOPRAZOLE SODIUM 40 MG in D5W 50 ML IV SCH ×2 (19:38→23:01)
[2020-10-05] MEDS: ONDANSETRON 4MG/2ML VIAL IV SCH ×2 (19:40→23:00)
[2020-10-05] MEDS: SUCRALFATE SUSP 1GM/10ML UD PO SCH ×2 (20:01→20:57)
[2020-10-05 20:07] LABS: VENOUS HCO3 11.9 MEQ/L (23.0-27.0); VENOUS O2 SATURATION 98.7 % (60.0-80.0); VENOUS PARTIAL PRESSURE CO2 22.5 mmHg (38.0-50.0); VENOUS PARTIAL PRESSURE O2 131.4 mmHg (30.0-50.0); VENOUS STANDARD HCO3 15.1 MEQ/L; VENOUS TOTAL CO2 12.6 MEQ/L (24.0-28.0)
[2020-10-05 20:10] LABS: HEMOGLOBIN 10.9 g/dl (13.5-17.5); MEAN CORPUSCULAR HEMOGLOBIN 22.8 pg (27.0-33.0); MEAN CORPUSCULAR HGB CONC 29.5 g/dl (32.0-36.5); MEAN CORPUSCULAR VOLUME 77.4 fl (80.0-96.0); PLATELET COUNT, AUTOMATED 216 10^3/uL (150-450); RED BLOOD COUNT 4.78 10^6/uL (4.30-6.10); WHITE BLOOD COUNT 8.3 10^3/uL (4.0-10.0)
[2020-10-05 20:28] VITALS: BP 120/73
[2020-10-05 20:38] LABS: BLOOD UREA NITROGEN 36 MG/DL (7-18); CALCIUM LEVEL 9.6 MG/DL (8.5-10.1); CARBON DIOXIDE LEVEL 15 MEQ/L (21-32); CHLORIDE LEVEL 79 MEQ/L (98-107); CK-MB VALUE MASS 3.2 NG/ML (<3.6); CPK CREATINE PHOSPHOKINASE 41 U/L (39-308); CREATININE FOR GFR 1.58 MG/DL (0.70-1.30); GLOMERULAR FILTRATION RATE 50.7 (>60); GLUCOSE, FASTING 508 MG/DL (70-100); POTASSIUM SERUM 3.4 MEQ/L (3.5-5.1); SODIUM LEVEL 126 MEQ/L (136-145); TROPONIN I 0.16 NG/ML (< 0.10)
[2020-10-05] MEDS ORDERED: HumaLOG INSULIN (NovoLOG) PER UNIT SC ONE (21:00)
[2020-10-05] MEDS ORDERED: LEVEMIR (INSULIN DETEMIR) 1 UNITS/0.01ML SC SCH (21:00)
[2020-10-05] MEDS: METOPROLOL TART 50 MG TAB PO SCH (21:46)
[2020-10-05] MEDS ORDERED: INSULIN REGULAR IN 0.9 % NACL 100 UNIT in IV 1 EA IV SCH ×2 (22:36)
[2020-10-05] MEDS ORDERED: INSULIN IV RATE CHANGE DOCUMENTATION ML/HR XX SCH (22:45)
--- NOTE | 2020-10-05 23:14 | HPEPDOC ---
General Date of Admission 10/05/20 Date of Service: Oct 05, 2020 Chief Complaint The patient is a 45-year-old male admitted with a reason for visit of vomiting. 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 He also has mild epigastric pain. He rated it about 3/10 in intensity dull aching in nature which has now resolved. He started having coffee ground emesis last night so came to ED today. His guaiac is faintly positive. He reports that he recently had EGD, Colonoscopy at [facility] and they did not find any abnormality. His labs were significant for JIGAR with creatinine to 1.7, High anion gap of 32 , bicarb of 21, troponin of 0.13. His ABG showed a pH of 7.43. He admits that he binge drank on 09/29/20. he had half a bottle of vodka. Then he noticed his sugars rising. Past 2 days his sugars have been between 300 to 500 at home. He has been increasing his insulin without any improvement. He then started vomiting 2 days ago and has not been able to keep any solid or liquids down. He was admitted for Hyper osmolar hyperglycemia, severe dehydration and JIGAR. Home Medications Scheduled Aspirin (Aspirin EC) 81 Mg Tablet.dr, 81 MG PO DAILY, (Reported) Atorvastatin Calcium (Atorvastatin Calcium) 80 Mg Tablet, 80 MG PO DAILY, (Reported) Folic Acid (Folic Acid) 1 Mg Tablet, 1 MG PO DAILY, (Reported) Gabapentin (Gabapentin) 600 Mg Tablet, 600 MG PO TID, (Reported) Insulin Glargine,Hum.rec.anlog (Semglee Pen) 100 Unit/Ml (3 Ml) Insuln.pen, 32 UNIT SC BID, (Reported) Insulin Human Lispro (Novolog) 100 U/Ml Inj, 1 DOSE SC AC, (Reported) PER SLIDING SCALE Metoprolol Tartrate (Metoprolol Tartrate) 100 Mg Tablet, 100 MG PO BID, (Reported) Multivitamin (Multivitamins) 1 Each Tablet, 1 TAB PO DAILY, (Reported) Pantoprazole Sodium (Pantoprazole Sodium) 40 Mg Tab, 40 MG PO DAILY, (Reported) Ramipril (Ramipril) 5 Mg Capsule, 5 MG PO DAILY, (Reported) Thiamine HCl (Thiamine HCl) 100 Mg Tablet, 100 MG PO BID, (Reported) Allergies Coded Allergies: No Known Allergies (Unverified , 03/03/19) Past Medical History Medical History Insulin-dependent diabetes mellitus 2/2 chronic pancreatitis Chronic pancreatitis 2/2 alcohol use Pancreatic body mass 4.[address] , MRI shoed is it Pancreatic pseudocyst partially calcified. hypertension, hyperlipidemia, acid reflux Vasovagal syncope splenic varices Iron def T12 sup end plate fracture old Surgical History bilateral vasectomy EGD Jul: thickened duodenal folds, irregular Z line no source of bleeding Colonoscopy: several polyps. Family History Significant Family History: Heart disease Social History * Smoker: current smoker Alcohol: heavy Drugs: denies A-FIB/CHADSVASC A-FIB History Current/History of A-Fib/PAF?: No Review of Systems Constitutional: Denies: Chills, Fever, Night Sweats Eyes: Denies: Pain, Vision change ENT: Denies: Head Aches, Ear Pain, Dysphagia Skin: Denies: Rash, Lesions, Breakdown Pulmonary: Denies: Dyspnea, Cough Cardiovascular: Denies: Chest Pain, Palpitations, Orthopnea, Paroxysmal Noc. Dyspnea, Lt Headedness Gastrointestinal: Reports: Nausea, Vomiting, Abdominal Pain, Other Symptoms (Coffee ground emesis) Hematologic: Denies: Bruising, Bleeding Excessively Neurological: Reports: Weakness; Denies: Numbness, Change in speech, Confusion Physical Examination General Exam: Positive: Alert, Cooperative, No Acute Distress Eye Exam: Positive: PERRLA, Conjunctiva & lids normal, EOMI; Negative: Sclera icteric ENT Exam: Positive: Atraumatic, Pharynx Normal, Other ENT (dry mucous membranes) Neck Exam: Positive: Supple; Negative: JVD, thyromegaly Chest Exam: Positive: Clear to auscultation, Normal air movement Heart Exam: Positive: Tachycardic, Regular Rhythm, Normal S1, Normal S2; Negative: Murmurs, Rubs Telemetry: Positive: No significant arrhythmia Abdomen Exam: Positive: BS Hypoactive, Soft; Negative: Tenderness, Hepatospenomegaly, Mass, Hernia Extremity Exam: Negative: Clubbing, Cyanosis, Edema Skin Exam: Positive: Nl turgor and temperature; Negative: Breakdown, Lesion Neuro Exam: Positive: Normal Speech, Strength at 5/5 X4 ext, Normal Tone Psych Exam: Positive: Memory Intact, Oriented x 3 Vital Signs Vital Signs Date Time Temp Pulse Resp B/P (MAP) Pulse Ox O2 Delivery O2 Flow Rate FiO2 10/05/20 14:04 120 99 10/05/20 14:00 118/77 (91) 10/05/20 12:20 97.8 16 Room Air Laboratory Data Labs 24H Laboratory Tests 2 10/05/20 13:46: Immature Granulocyte % (Auto) 0.5, Neutrophils (%) (Auto) 82.4H, Lymphocytes (%) (Auto) 10.0L, Monocytes (%) (Auto) 7.0H, Eosinophils (%) (Auto) 0.0, Basophils (%) (Auto) 0.1, Neutrophils # (Auto) 9.0H, Lymphocytes # (Auto) 1.1L, Monocytes # (Auto) 0.8, Eosinophils # (Auto) 0.0, Basophils # (Auto) 0.0, Nucleated Red Blood Cells % (auto) 0.0, Prothrombin Time 12.5, Prothromb Time International Ratio 0.92, Activated Partial Thromboplast Time 23.1L, Anion Gap 32H, Glomerular Filtration Rate 46.3L, Calcium Level 11.7H, Total Bilirubin 1.0, Direct Bi lirubin 0.2, Aspartate Amino Transf (AST/SGOT) 64H, Alanine Aminotransferase (ALT/SGPT) 67, Alkaline Phosphatase 153H, Total Creatine Kinase 58, Creatine Kinase MB 2.7, Creatine Kinase MB Relative Index 4.66H, Troponin I 0.13H, Total Protein 7.3, Albumin 4.1, Albumin/Globulin Ratio 1.3, Lipase 33L 10/05/20 15:47: CBC/BMP Laboratory Tests 10/05/20 13:46 Assessment/Plan 45 year old male with chronic pancreatitis due to alcohol abuse, Insulin dependent DM due to chronic pancreatitis, HTN, HLD presents to the ED with nausea and vomiting for 2 days , Dry heaves and coffee ground emesis for 1 day. He also has mild epigastric pain. He rated it about 3/10 in intensity dull aching in nature which has now resolved. He started having coffee ground emesis last night so came to ED today. His guaiac is faintly positive. He reports that he recently had EGD, Colonoscopy at [facility] and they did not find any abnormality. His labs were significant for JIGAR with creatinine to 1.7, High anion gap of 32 , bicarb of 21, troponin of 0.13. His ABG showed a pH of 7.43. He admits that he binge drank on 09/29/20. he had half a bottle of vodka. Then he noticed his sugars rising. Past 2 days his sugars have been between 300 to 500 at home. He has been increasing his insulin without any improvement. He then started vomiting 2 days ago and has not been able to keep any solid or liquids down. He was admitted for Hyper osmolar hyperglycemia, severe dehydration and JIGAR. Hyperosmolar Hyperglycemia with severe dehydration Though labs show high anion gap but the Ph is 7.43 and Bicarb only mildly reduced to 21 so I think it is HHS rather than DKA. will start on aggressive hydration. Received IV insulin in the ED Will order Lispo and Levemir Ac and HS will get serum and urine ketones. Repeat labs in 6 hours. If continues to have very high sugars, if bicarb drops if pH drops will move him to ICU and start on insulin gtt. Coffee ground emesis probably alcoholic vs stress related gastritis start PPI gtt, sucralfate and zofran Psudohyponatremia due to hyperglycemia Hypercalcemia due to severe dehydration Jigar due to dehydration aggressive hydration Elevated troponin probably due to JIGAR no chest pain , no EKG changes suggestive of acute ischemia will repeat in 6 hours. Hypertension Bp well controlled now will give half dose of metoprolol with hold parameters. HLD will hold statins at present. Plan / VTE VTE Prophylaxis Ordered?: Yes MELBA VERDUGO MD Oct 05, 2020 16:41
[2020-10-06] VITALS (9 sets, daily range): BP systolic 85–110; BP diastolic 50–71
[2020-10-06 00:05] LABS: ACETONE/KETONE > 46.00 MG/DL (<2.81); BLOOD UREA NITROGEN 32 MG/DL (7-18); CALCIUM LEVEL 8.9 MG/DL (8.5-10.1); CARBON DIOXIDE LEVEL 17 MEQ/L (21-32); CHLORIDE LEVEL 83 MEQ/L (98-107); CREATININE FOR GFR 1.53 MG/DL (0.70-1.30); GLOMERULAR FILTRATION RATE 52.7 (>60); GLUCOSE, FASTING 417 MG/DL (70-100); MAGNESIUM LEVEL 2.3 MG/DL (1.8-2.4); PHOSPHORUS LEVEL 2.3 MG/DL (2.5-4.9); POTASSIUM SERUM 3.1 MEQ/L (3.5-5.1); SODIUM LEVEL 127 MEQ/L (136-145)
[2020-10-06 00:06] LABS: ACETONE/KETONE > 46.00 MG/DL (<2.81)
[2020-10-06] MEDS ORDERED: KCL 40MEQ in NS 1000ML 1,000 ML IV SCH (00:29)
[2020-10-06] MEDS: KCL 10MEQ/100ML SWI (KRUN) 10 MEQ in IV 1 EA IV SCH ×6 (00:47→10:20)
[2020-10-06 00:56] LABS: CALCIUM LEVEL 8.6 MG/DL (8.5-10.1); CREATININE FOR GFR 1.45 MG/DL (0.70-1.30); MAGNESIUM LEVEL 2.1 MG/DL (1.8-2.4); PHOSPHORUS LEVEL 1.7 MG/DL (2.5-4.9); POTASSIUM SERUM 2.8 MEQ/L (3.5-5.1)
[2020-10-06] MEDS ORDERED: KCL 20MEQ IN D5/0.45NS 1000ML 1,000 ML IV SCH (01:15)
[2020-10-06 02:50] LABS: CALCIUM LEVEL 8.7 MG/DL (8.5-10.1); CREATININE FOR GFR 1.51 MG/DL (0.70-1.30); GLOMERULAR FILTRATION RATE 53.5 (>60); MAGNESIUM LEVEL 2.1 MG/DL (1.8-2.4); PHOSPHORUS LEVEL 1.2 MG/DL (2.5-4.9); POTASSIUM SERUM 3.1 MEQ/L (3.5-5.1)
[2020-10-06] MEDS: PANTOPRAZOLE SODIUM 40 MG in D5W 50 ML IV SCH ×2 (03:06→07:38)
[2020-10-06] MEDS ORDERED: POTASSIUM PHOSPHATE INJ 18 MMOL in D5W 250 ML IV ONE (04:30)
[2020-10-06] MEDS: ONDANSETRON 4MG/2ML VIAL IV SCH (05:06)
[2020-10-06 05:23] LABS: CALCIUM LEVEL 8.5 MG/DL (8.5-10.1); CREATININE FOR GFR 1.51 MG/DL (0.70-1.30); GLOMERULAR FILTRATION RATE 53.5 (>60); MAGNESIUM LEVEL 2.1 MG/DL (1.8-2.4); POTASSIUM SERUM 3.3 MEQ/L (3.5-5.1)
[2020-10-06] MEDS ORDERED: HumaLOG INSULIN (NovoLOG) PER UNIT SC SCH ×2 (06:00→21:00)
[2020-10-06 06:38] LABS: BASO % 0.2 % (0.0-1.0); EOS % 0.2 % (0.0-3.0); HEMATOCRIT 29.4 % (42.0-52.0); HEMOGLOBIN 9.1 g/dl (13.5-17.5); LYMPH # 1.5 10^3/uL (1.5-5.0); LYMPH % 25.4 % (24.0-44.0); MEAN CORPUSCULAR HEMOGLOBIN 22.6 pg (27.0-33.0); MONO # 0.5 10^3/uL (0.0-0.8); MONO % 8.4 % (0.0-5.0); NEUTROPHILS # 3.8 10^3/uL (1.5-8.5); NEUTROPHILS % 65.3 % (36.0-66.0); PLATELET COUNT, AUTOMATED 177 10^3/uL (150-450); RED BLOOD COUNT 4.03 10^6/uL (4.30-6.10); WHITE BLOOD COUNT 5.8 10^3/uL (4.0-10.0)
[2020-10-06 07:14] LABS: CALCIUM LEVEL 8.3 MG/DL (8.5-10.1); CK-MB VALUE MASS 2.3 NG/ML (<3.6); CREATININE FOR GFR 1.42 MG/DL (0.70-1.30); GLOMERULAR FILTRATION RATE 57.4 (>60); MAGNESIUM LEVEL 2.1 MG/DL (1.8-2.4); MB/CK RELATIVE INDEX 7.42 (< OR =4); PHOSPHORUS LEVEL 1.5 MG/DL (2.5-4.9); POTASSIUM SERUM 3.3 MEQ/L (3.5-5.1); TROPONIN I 0.17 NG/ML (< 0.10)
[2020-10-06] MEDS ORDERED: SODIUM PHOSPHATE INJ 30 MMOL in D5W 500 ML IV ONE (07:30)
[2020-10-06] MEDS: SUCRALFATE SUSP 1GM/10ML UD PO SCH ×4 (07:38→21:30)
[2020-10-06] MEDS ORDERED: PANTOPRAZOLE 40MG VIAL (C9113 PER 1) IV SCH (09:00)
[2020-10-06] MEDS: METOPROLOL TART 50 MG TAB PO SCH ×2 (09:00→21:00)
[2020-10-06] MEDS ORDERED: ONDANSETRON 4MG/2ML VIAL IV PRN (09:00)
--- NOTE | 2020-10-06 09:28 | ECGEPIP ---
[facility] - ED Test Date: 2020-10-05 Pat Name: FALGUNI ALSTON Department: Room: - Gender: Male Call Specialist: JACINTO : 1975 Requested By: MAYA Wu Order Number: [id number] Reading MD: Nani Horton Measurements Intervals [place] Rate: 122 P: 55 IL: 127 QRS: 64 QRSD: 94 T: 49 QT: 333 QTc: 475 Interpretive Statements SINUS TACHYCARDIA WITH OCCASIONAL ECTOPIC PREMATURE COMPLEXES MODERATE ST DEPRESSION SIMILAR 08/18/20 Electronically Signed on 10-06-2020 9:28:13 EST by Nani Horton
--- NOTE | 2020-10-06 09:37 | IPNPDOC ---
Subjective Date Seen The patient was seen on 10/06/20. Subjective Chief Complaint/HPI Better this morning. No more vomiting , no jose, no abdominal pain, feels very hungry. Objective Physical Examination General Exam: Positive: Alert, Cooperative, No Acute Distress Eye Exam: Positive: PERRLA, Conjunctiva & lids normal, EOMI; Negative: Sclera icteric ENT Exam: Positive: Atraumatic, Mucous membr. moist/pink, Pharynx Normal Neck Exam: Positive: Supple; Negative: JVD, thyromegaly Chest Exam: Positive: Clear to auscultation, Normal air movement Heart Exam: Positive: Rate Normal, Regular Rhythm, Normal S1, Normal S2; Negative: Murmurs, Rubs Telemetry: Positive: No significant arrhythmia Abdomen Exam: Positive: Normal bowel sounds, Soft; Negative: Tenderness, Hepatospenomegaly, Mass, Hernia Extremity Exam: Negative: Clubbing, Cyanosis, Edema Skin Exam: Positive: Nl turgor and temperature; Negative: Breakdown, Lesion Neuro Exam: Positive: Normal Speech, Strength at 5/5 X4 ext, Normal Tone Psych Exam: Positive: Memory Intact, Oriented x 3 Assessment /Plan Assessment 45 year old male with chronic pancreatitis due to alcohol abuse, Insulin dependent DM due to chronic pancreatitis, HTN, HLD presents to the ED with nausea and vomiting for 2 days , Dry heaves and coffee ground emesis for 1 day. He also has mild epigastric pain. He rated it about 3/10 in intensity dull aching in nature which has now resolved. He started having coffee ground emesis last night so came to ED today. His guaiac is faintly positive. He reports that he recently had EGD, Colonoscopy at [facility] and they did not find any abnormality. His labs were significant for RAYMOND with creatinine to 1.7, High anion gap of 32 , bicarb of 21, troponin of 0.13. His ABG showed a pH of 7.43. He admits that he binge drank on 09/29/20. he had half a bottle of vodka. Then he noticed his sugars rising. Past 2 days his sugars have been between 300 to 500 at home. He has been increasing his insulin without any improvement. He then started vomiting 2 days ago and has not been able to keep any solid or liquids down. He was admitted for Hyper osmolar hyperglycemia, severe dehydration and RAYMOND. Hyperosmolar Hyperglycemia with severe dehydration Vs DKA with severe metabolic alkalosis due to severe dehydration Betahydroxy butyrate was very high so was most likely DKA though the pH or Bicarb level initially did not support DKA However after starting hydration and correction of the metabolic alkalosis his bicarb did drop to 17 and pH also dropped but never went below 7.3. He did correct the bicarb adn the anion gap with only 1 dose of IV insulin and subcut levemir and lispo. Now acidosis is resolved. Carb consistent diet. continue AC HS finger sticks Levemir and lispro Continue IVf. Hypokalemia, hypophosphatemia getting replacement. Coffee ground emesis resolved probably alcoholic vs stress related gastritis PPI sucralfate and zofran Psudohyponatremia and hypovolemic hyponatremia. due to hyperglycemia and severe dehydration. continue NS. Hypercalcemia due to severe dehydration resolved RAYMOND due to dehydration continue IVF. Elevated troponin probably due to RAYMOND no chest pain , no EKG changes suggestive of acute ischemia remains elevated with a flat curve. Hypertension Low normal metoprolol with hold parameters. HLD will hold statins at present. Alcohol use disorders continue thiamine and folate. 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 Levemir , lispro, gabapentin. Plan/VTE VTE Prophylaxis Ordered?: Yes VS, I&O, 24H, Fishbone Vital Signs/I&O Vital Signs Date Time Temp Pulse Resp B/P (MAP) Pulse Ox O2 Delivery O2 Flow Rate FiO2 10/06/20 08:00 99.0 84 18 104/70 (81) 97 Room Air I&O- Last 24 Hours up to 6 AM 10/06/20 06:00 Intake Total 2805 ml Output Total 1000 ml Balance 1805 ml Laboratory Data 24H LABS Laboratory Tests 2 10/05/20 13:46: Immature Granulocyte % (Auto) 0.5, Neutrophils (%) (Auto) 82.4H, Lymphocytes (%) (Auto) 10.0L, Monocytes (%) (Auto) 7.0H, Eosinophils (%) (Auto) 0.0, Basophils (%) (Auto) 0.1, Neutrophils # (Auto) 9.0H, Lymphocytes # (Auto) 1.1L, Monocytes # (Auto) 0.8, Eosinophils # (Auto) 0.0, Basophils # (Auto) 0.0, Nucleated Red Blood Cells % (auto) 0.0, Prothrombin Time 12.5, Prothromb Time International Ratio 0.92, Activated Partial Thromboplast Time 23.1L, Anion Gap 32H, Glomerular Filtration Rate 46.3L, Calcium Level 11.7H, Total Bilirubin 1.0, Direct Bilirubin 0.2, Aspartate Amino Transf (AST/SGOT) 64H, Alanine Aminotransferase (ALT/SGPT) 67, Alkaline Phosphatase 153H, Total Creatine Kinase 58, Creatine Kinase MB 2.7, Creatine Kinase MB Relative Index 4.66H, Troponin I 0.13H, Total Protein 7.3, Albumin 4.1, Albumin/Globulin Ratio 1.3, Lipase 33L 10/05/20 15:47: Coronavirus (COVID-19)(PCR) NEGATIVE, Influenza Type A (RT-PCR) NEGATIVE, Influenza Type B (RT-PCR) NEGATIVE, Respiratory Syncytial Virus (PCR) NEGATIVE 10/05/20 16:31: Blood Gas Bicarbonate Standard 20.4L, Arterial Blood pH 7.435, Arterial Blood Partial Pressure CO2 27.6L, Arterial Blood Partial Pressure O2 109.9H, Arterial Blood Total CO2 19.0L, Arterial Blood HCO3 18.1L, Arterial Blood Base Excess - 4.9L, Arterial Blood Oxygen Saturation 98.1 10/05/20 19:24: Bedside Glucose (Misc Panel) 498H 10/05/20 19:59: Nucleated Red Blood Cells % (auto) 0.0, Blood Gas Bicarbonate Standard 15.1, Venous Blood pH 7.340, Venous Blood Partial Pressure CO2 22.5L, Venous Blood Partial Pressure O2 131.4H, Venous Blood Total Carbon Dioxide 12.6L, Venous Blood HCO3 11.9L, Venous Blood Oxygen Saturation 98.7H, Venous Blood Base Excess -12.0L, Anion Gap 32H, Glomerular Filtration Rate 50.7L, Calcium Level 9.6#, Total Creatine Kinase 41, Creatine Kinase MB 3.2, Creatine Kinase MB Relative Index 7.80H, Troponin I 0.16#H, B-Hydroxybutyrate > 46.00H 10/05/20 22:53: Bedside Glucose (Misc Panel) 443H 10/05/20 22:54: Anion Gap 27H, Glomerular Filtration Rate 52.7L, Calcium Level 8.9, B- Hydroxybutyrate > 46.00H, Phosphorus Level 2.3L, Magnesium Level 2.3 10/05/20 23:57: Anion Gap 23H, Glomerular Filtration Rate 56.0L, Calcium Level 8.6, Phosphorus Level 1.7#L, Magnesium Level 2.1 10/06/20 01:08: Bedside Glucose (Misc Panel) 241H 10/06/20 01:56: Anion Gap 15, Glomerular Filtration Rate 53.5L, Calcium Level 8.7, Phosphorus Level 1.2#L, Magnesium Level 2.1 10/06/20 02:13: Bedside Glucose (Misc Panel) 205H 10/06/20 03:12: Bedside Glucose (Misc Panel) 194H 10/06/20 04:43: Anion Gap 9, Glomerular Filtration Rate 53.5L, Calcium Level 8.5, Phosphorus Level 1.0L, Magnesium Level 2.1 10/06/20 04:58: Bedside Glucose (Misc Panel) 163H 10/06/20 06:21: Bedside Glucose (Misc Panel) 173H 10/06/20 06:25: Anion Gap 7L, Glomerular Filtration Rate 57.4L, Calcium Level 8.3L, Phosphorus Level 1.5#L, Magnesium Level 2.1, Immature Granulocyte % (Auto) 0.5, Neutrophils (%) (Auto) 65.3, Lymphocytes (%) (Auto) 25.4, Monocytes (%) (Auto) 8.4H, Eosin ophils (%) (Auto) 0.2, Basophils (%) (Auto) 0.2, Neutrophils # (Auto) 3.8, Lymphocytes # (Auto) 1.5, Monocytes # (Auto) 0.5, Eosinophils # (Auto) 0.0, Basophils # (Auto) 0.0, Nucleated Red Blood Cells % (auto) 0.0, Total Creatine Kinase 31L, Creatine Kinase MB 2.3, Creatine Kinase MB Relative Index 7.42H, Troponin I 0.17H 10/06/20 08:43: Bedside Glucose (Misc Panel) 173H CBC/BMP Laboratory Tests 10/05/20 13:46 10/05/20 19:59 10/05/20 22:54 10/05/20 23:57 10/06/20 01:56 10/06/20 04:43 10/06/20 06:25 MELBA VERDUGO MD Oct 06, 2020 09:37
[2020-10-06] MEDS: PANTOPRAZOLE 40MG VIAL (C9113 PER 1) IV SCH ×2 (09:44→21:30)
[2020-10-06] MEDS: LEVEMIR (INSULIN DETEMIR) 1 UNITS/0.01ML SC SCH ×2 (09:44→21:31)
[2020-10-06] MEDS: HumaLOG INSULIN (NovoLOG) PER UNIT SC SCH ×3 (09:44→17:23)
[2020-10-06] MEDS: FOLIC ACID 1 MG TAB PO SCH (09:45)
[2020-10-06] MEDS: GABAPENTIN 300 MG CAP PO SCH ×3 (09:45→21:30)
[2020-10-06] MEDS: KCL 40MEQ in NS 1000ML 1,000 ML IV SCH ×2 (09:45→21:32)
[2020-10-06] MEDS: THIAMINE 100 MG TAB PO SCH ×2 (09:45→21:30)
[2020-10-06] MEDS: POTASSIUM PHOSPHATE INJ 20 MMOL in D5W 250 ML IV ONE ×2 (10:20→13:06)
[2020-10-06 11:40] LABS: CALCIUM LEVEL 7.6 MG/DL (8.5-10.1); CREATININE FOR GFR 1.5 MG/DL (0.70-1.30); GLOMERULAR FILTRATION RATE 53.9 (>60); POTASSIUM SERUM 3.4 MEQ/L (3.5-5.1)
[2020-10-06 17:51] LABS: CALCIUM LEVEL 7.4 MG/DL (8.5-10.1); CREATININE FOR GFR 1.61 MG/DL (0.70-1.30); GLOMERULAR FILTRATION RATE 49.7 (>60); PERCENT SATURATION 9.3 % (19.7-50.0); PHOSPHORUS LEVEL 2.3 MG/DL (2.5-4.9); POTASSIUM SERUM 3.9 MEQ/L (3.5-5.1)
[2020-10-07 06:00] VITALS: BP 104/69
[2020-10-07 07:42] LABS: BASO % 0.2 % (0.0-1.0); EOS % 0.6 % (0.0-3.0); HEMATOCRIT 27.5 % (42.0-52.0); HEMOGLOBIN 8.1 g/dl (13.5-17.5); LYMPH # 1.3 10^3/uL (1.5-5.0); LYMPH % 25.6 % (24.0-44.0); MEAN CORPUSCULAR HEMOGLOBIN 22.8 pg (27.0-33.0); MEAN CORPUSCULAR HGB CONC 29.5 g/dl (32.0-36.5); MEAN CORPUSCULAR VOLUME 77.2 fl (80.0-96.0); MONO # 0.5 10^3/uL (0.0-0.8); MONO % 9.8 % (0.0-5.0); NEUTROPHILS # 3.1 10^3/uL (1.5-8.5); NEUTROPHILS % 63.4 % (36.0-66.0); PLATELET COUNT, AUTOMATED 136 10^3/uL (150-450); RED BLOOD COUNT 3.56 10^6/uL (4.30-6.10); WHITE BLOOD COUNT 4.9 10^3/uL (4.0-10.0)
[2020-10-07 07:59] LABS: HEMOGLOBIN A1c 10.3 %
[2020-10-07 08:05] LABS: BLOOD UREA NITROGEN 17 MG/DL (7-18); CALCIUM LEVEL 7.4 MG/DL (8.5-10.1); CARBON DIOXIDE LEVEL 25 MEQ/L (21-32); CHLORIDE LEVEL 104 MEQ/L (98-107); CREATININE FOR GFR 0.82 MG/DL (0.70-1.30); GLOMERULAR FILTRATION RATE > 60.0 (>60); GLUCOSE, FASTING 151 MG/DL (70-100); POTASSIUM SERUM 3.6 MEQ/L (3.5-5.1); SODIUM LEVEL 135 MEQ/L (136-145)
[2020-10-07] MEDS ORDERED: SUCR1TA PO (08:30)
[2020-10-07] MEDS ORDERED: FERR325T16 PO (08:30)
[2020-10-07 09:00] VITALS: BP 113/82
[2020-10-07] MEDS: METOPROLOL TART 50 MG TAB PO SCH (09:00)
[2020-10-07] MEDS: HumaLOG INSULIN (NovoLOG) PER UNIT SC SCH (09:30)
[2020-10-07] MEDS: SUCRALFATE SUSP 1GM/10ML UD PO SCH (09:30)
[2020-10-07] MEDS: LEVEMIR (INSULIN DETEMIR) 1 UNITS/0.01ML SC SCH (09:30)
[2020-10-07] MEDS: PANTOPRAZOLE 40MG VIAL (C9113 PER 1) IV SCH (09:30)
[2020-10-07] MEDS: THIAMINE 100 MG TAB PO SCH (09:31)
[2020-10-07] MEDS: GABAPENTIN 300 MG CAP PO SCH (09:31)
[2020-10-07] MEDS: FOLIC ACID 1 MG TAB PO SCH (09:32)
--- NOTE | 2020-10-12 09:24 | DS.PDOC ---
Discharge Summary General Date of Admission Oct 05, 2020 at 17:00 Date of Discharge 10/07/20 Discharge Summary PROCEDURES PERFORMED DURING STAY: [None]. DISCHARGE DIAGNOSES: DKA Severe dehydration and metabolic acidosis. RAYMOND Hypokalemia Hypophosphatemia Hyponatremia Hypercalcemia Gastris with coffee ground emesis. Alcohol Use disorder, binge drinks. Microcytic anemia iron deficiency. SECONDARY DIAGNOSIS: Insulin-dependent diabetes mellitus 2/2 chronic pancreatitis Chronic pancreatitis 2/2 alcohol use Pancreatic body mass 4.[address] , MRI showed is it Pancreatic pseudocyst partially calcified. hypertension, hyperlipidemia, acid reflux Vasovagal syncope splenic varices Iron def T12 sup end plate fracture old EGD Jul [facility]: thickened duodenal folds, irregular Z line no source of blee ding Colonoscopy: several polyps. COMPLICATIONS/CHIEF COMPLAINT: Gib/Hyperglycemia. HOSPITAL COURSE: 45 year old male with chronic pancreatitis due to alcohol abuse, Insulin dependent DM due to chronic pancreatitis, HTN, HLD presents to the ED with nausea and vomiting for 2 days , Dry heaves and coffee ground emesis for 1 day. He also has mild epigastric pain. He rated it about 3/10 in intensity dull aching in nature which has now resolved. He started having coffee ground emesis last night so came to ED today. His guaiac is faintly positive. He reports that he recently had EGD, Colonoscopy at [facility] and they did not find any abnormality. His labs were significant for RAYMOND with creatinine to 1.7, High anion gap of 32 , bicarb of 21, troponin of 0.13. His ABG showed a pH of 7.43. He admits that he binge drank on 09/29/20. he had half a bottle of vodka. Then he noticed his sugars rising. Past 2 days his sugars have been between 300 to 500 at home. He has been increasing his insulin without any improvement. He then started vomiting 2 days ago and has not been able to keep any solid or liquids down. He was admitted for Hyper osmolar hyperglycemia, severe dehydration and RAYMOND. Hyperosmolar Hyperglycemia with severe dehydration Vs DKA with severe metabolic alkalosis due to severe dehydration Betahydroxy butyrate was very high so was most likely DKA though the pH or Bicarb level initially did not support DKA However after starting hydration and correction of the metabolic alkalosis his bicarb did drop to 17 and pH also dropped but never went below 7.3. He did correct the bicarb and the anion gap with only 1 dose of IV insulin and subcut levemir and lispo. Now acidosis is resolved. Carb consistent diet. continue AC HS finger sticks Levemir and lispro Hypokalemia, hypophosphatemia getting replacement. Coffee ground emesis resolved probably alcoholic vs stress related gastritis PPI, sucralfate and zofran Psudohyponatremia and hypovolemic hyponatremia. due to hyperglycemia and severe dehydration. resolved Hypercalcemia due to severe dehydration resolved RAYMOND due to dehydration resolved Elevated troponin probably due to RAYMOND no chest pain , no EKG changes suggestive of acute ischemia remains elevated with a flat curve. Hypertension home medications HLD statins Alcohol use disorders continue thiamine and folate. 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 Levemir , lispro, gabapentin. DISCHARGE MEDICATIONS: Please see below. ALLERGIES: Please see below. PHYSICAL EXAMINATION ON DISCHARGE: VITAL SIGNS: Please see below. General Exam: Positive: Alert, Cooperative, No Acute Distress Eye Exam: Positive: PERRLA, Conjunctiva & lids normal, EOMI; Negative: Sclera icteric ENT Exam: Positive: Atraumatic, Mucous membr. moist/pink, Pharynx Normal Neck Exam: Positive: Supple; Negative: JVD, thyromegaly Chest Exam: Positive: Clear to auscultation, Normal air movement Heart Exam: Positive: Rate Normal, Regular Rhythm, Normal S1, Normal S2; Negative: Murmurs, Rubs Telemetry: Positive: No significant arrhythmia Abdomen Exam: Positive: Normal bowel sounds, Soft; Negative: Tenderness, Hepatospenomegaly, Mass, Hernia Extremity Exam: Negative: Clubbing, Cyanosis, Edema Skin Exam: Positive: Nl turgor and temperature; Negative: Breakdown, Lesion Neuro Exam: Positive: Normal Speech, Strength at 5/5 X4 ext, Normal Tone Psych Exam: Positive: Memory Intact, Oriented x 3 LABORATORY DATA: Please see below. ACTIVITY: [As tolerated]. DIET: Carb consistent. DISPOSITION: 01 Home, Self-Care. DISCHARGE INSTRUCTIONS: PMD in 1 week DISCHARGE CONDITION: [Stable]. TIME SPENT ON DISCHARGE: 35 minutes. Vital Signs/I&Os Vital Signs Date Time Temp Pulse Resp B/P (MAP) Pulse Ox O2 Delivery O2 Flow Rate FiO2 10/07/20 09:00 96 113/82 10/07/20 06:00 98.1 18 98 Room Air Laboratory Data Labs 24H Item Value Date Time Sodium Level 135 MEQ/L L 10/07/20 0707 Potassium Level 3.6 MEQ/L 10/07/20 0707 Chloride Level 104 MEQ/L 10/07/20 0707 Carbon Dioxide Level 25 MEQ/L 10/07/20 0707 Anion Gap 6 MEQ/L L 10/07/20 07 Blood Urea Nitrogen 17 MG/DL 10/07/20 0707 Creatinine 0.82 MG/DL 10/07/20 0707 Glomerular Filtration Rate > 60.0 10/07/20 0707 Fasting Glucose 151 MG/DL H 10/07/20 0707 Estimated Mean Plasma Glucose 249 MG/DL H 10/07/20 0707 Hemoglobin A1c 10.3 % 10/07/20 0707 Calcium Level 7.4 MG/DL L 10/07/20 07 White Blood Count 4.9 10^3/uL 10/07/20 0707 Red Blood Count 3.56 10^6/uL L 10/07/20 0707 Hemoglobin 8.1 g/dl L 10/07/20 0707 Hematocrit 27.5 % L 10/07/20 0707 Mean Corpuscular Volume 77.2 fl L 10/07/20 07 Mean Corpuscular Hemoglobin 22.8 pg L 10/07/20706 Mean Corpuscular Hemoglobin Concent 29.5 g/dl L 10/07/20 07 Red Cell Distribution Width 17.0 % H 10/07/20706 Platelet Count 136 10^3/uL L 10/07/20706 Immature Granulocyte % (Auto) 0.4 % 10/07/20706 Neutrophils (%) (Auto) 63.4 % 10/07/20706 Lymphocytes (%) (Auto) 25.6 % 10/07/20706 Monocytes (%) (Auto) 9.8 % H 10/07/20706 Eosinophils (%) (Auto) 0.6 % 10/07/20706 Basophils (%) (Auto) 0.2 % 10/07/20706 Neutrophils # (Auto) 3.1 10^3/uL 10/07/20 07 Lymphocytes # (Auto) 1.3 10^3/uL L 10/07/20 07 Monocytes # (Auto) 0.5 10^3/uL 10/07/20 0707 Eosinophils # (Auto) 0.0 10^3/uL 10/07/20 0707 Basophils # (Auto) 0.0 10^3/uL 10/07/20 0707 Nucleated Red Blood Cells % (auto) 0.0 % 10/07/20 0707 Discharge Medications Scheduled Aspirin (Aspirin EC) 81 Mg Tablet.dr, 81 MG PO DAILY, (Reported) Atorvastatin Calcium (Atorvastatin Calcium) 80 Mg Tablet, 80 MG PO DAILY, (Reported) Ferrous Gluconate (Ferrous Gluconate) 324 Mg Tablet, 1 TAB PO DAILY for iron Folic Acid (Folic Acid) 1 Mg Tablet, 1 MG PO DAILY, (Reported) Gabapentin (Gabapentin) 600 Mg Tablet, 600 MG PO TID, (Reported) Insulin Glargine,Hum.rec.anlog (Semglee Pen) 100 Unit/Ml (3 Ml) Insuln.pen, 32 UNIT SC BID, (Reported) Insulin Human Lispro (Novolog) 100 U/Ml Inj, 1 DOSE SC AC, (Reported) PER SLIDING SCALE Metoprolol Tartrate (Metoprolol Tartrate) 100 Mg Tablet, 100 MG PO BID, (Reported) Multivitamin (Multivitamins) 1 Each Tablet, 1 TAB PO DAILY, (Reported) Pantoprazole Sodium (Pantoprazole Sodium) 40 Mg Tab, 40 MG PO DAILY, (Reported) Ramipril (Ramipril) 5 Mg Capsule, 5 MG PO DAILY, (Reported) Sucralfate (Sucralfate) 1 Gm Tablet, 1 GRAM PO TID before meals Thiamine HCl (Thiamine HCl) 100 Mg Tablet, 100 MG PO BID, (Reported) Allergies Coded Allergies: No Known Allergies (Unverified , 03/03/19) MELBA VERDUGO MD Oct 12, 2020 09:24
== END 2020-10-07 10:41 | disposition home or self-care (01) | DRG 420 ==
LOC: EDBD 12:04 → M ED 12:04 → M ED INP 17:00 → M PCU 20:28 → M MSPAV 10-06 11:02
PROVIDERS: ADMIT Internal Medicine Nephrology; ATTEND Internal Medicine Nephrology
DX: E13.10 Other specified diabetes mellitus with ketoacidosis without coma (principal); N17.9 Acute kidney failure, unspecified; K86.2 Cyst of pancreas; K86.0 Alcohol-induced chronic pancreatitis; E83.52 Hypercalcemia; E83.39 Other disorders of phosphorus metabolism; E13.40 Other specified diabetes mellitus with diabetic neuropathy, unspecified; I10 Essential (primary) hypertension; E86.0 Dehydration; K29.20 Alcoholic gastritis without bleeding; E78.5 Hyperlipidemia, unspecified; K21.9 Gastro-esophageal reflux disease without esophagitis; F10.10 Alcohol abuse, uncomplicated; E87.6 Hypokalemia; F17.200 Nicotine dependence, unspecified, uncomplicated; D50.9 Iron deficiency anemia, unspecified; Z79.82 Long term (current) use of aspirin; Z79.4 Long term (current) use of insulin; Z79.899 Other long term (current) drug therapy; Z20.822 Contact with and (suspected) exposure to COVID-19

== ENCOUNTER → 2020-11-22 | Outpatient (CLI) | payer OTHER ==
[~2020-11-22] MED LIST changes: +FERR325T16 PO; +SUCR1TA PO; +THIA100T7 PO
== END ==
LOC: M LABSMTC 13:05
PROVIDERS: ATTEND Internal Medicine Gastroenterology
DX: Z01.818 Encounter for other preprocedural examination (principal)

== ENCOUNTER → 2020-12-24 | Outpatient (CLI) | payer OTHER ==
[~2020-12-24] MED LIST changes: +FERR324T21 PO; -FERR325T16 PO
== END ==
LOC: M RAD 17:57
PROVIDERS: ATTEND Internal Medicine Gastroenterology
DX: R93.5 Abnormal findings on diagnostic imaging of other abdominal regions, including retroperitoneum (principal); Z53.8 Procedure and treatment not carried out for other reasons

== ENCOUNTER → 2021-08-09 | Outpatient (REF) | LOC: M LAB 09:10 | PROVIDERS: ATTEND Nurse Practitioner Adult Health | DX: Z02.1 Encounter for pre-employment examination (principal) ==

== ENCOUNTER 2021-12-23 14:11 | Inpatient (IN) | payer OTHER ==
[~2021-12-23] VITALS: Ht 175.3 cm; Wt 84.1 kg
[~2021-12-23 14:11] MED LIST changes: +OMEP40CA4 PO
[2021-12-23] MEDS ORDERED: NS 1,000 ML IV ONE ×2 (15:15→17:15)
[2021-12-23 15:57] LABS: VENOUS BASE EXCESS 10.5 (-2.0-2.0); VENOUS HCO3 35.8 MEQ/L (23.0-27.0); VENOUS O2 SATURATION 74.5 % (60.0-80.0); VENOUS PARTIAL PRESSURE CO2 47.8 mmHg (38.0-50.0); VENOUS PARTIAL PRESSURE O2 37.8 mmHg (30.0-50.0); VENOUS PH 7.492 UNITS (7.330-7.430); VENOUS STANDARD HCO3 33.4 MEQ/L; VENOUS TOTAL CO2 37.2 MEQ/L (24.0-28.0)
[2021-12-23 16:07] LABS: BASO % 0.1 % (0.0-1.0); EOS % 0.2 % (0.0-3.0); HEMATOCRIT 47.9 % (42.0-52.0); HEMOGLOBIN 17.3 g/dl (13.5-17.5); LYMPH # 0.9 10^3/uL (1.5-5.0); LYMPH % 9.1 % (24.0-44.0); MEAN CORPUSCULAR HEMOGLOBIN 30.3 pg (27.0-33.0); MEAN CORPUSCULAR HGB CONC 36.1 g/dl (32.0-36.5); MEAN CORPUSCULAR VOLUME 83.9 fl (80.0-96.0); MONO # 0.9 10^3/uL (0.0-0.8); NEUTROPHILS # 8.2 10^3/uL (1.5-8.5); PLATELET COUNT, AUTOMATED 126 10^3/uL (150-450); RED BLOOD COUNT 5.71 10^6/uL (4.30-6.10); WHITE BLOOD COUNT 10.1 10^3/uL (4.0-10.0)
[2021-12-23 16:25] LABS: HEMOGLOBIN A1c 9.9 %
[2021-12-23 16:37] LABS: AMPHETAMINES LEVEL URINE NEGATIVE (NEGATIVE); BARBITURATES URINE NEGATIVE (NEGATIVE); BENZODIAZEPINES URINE NEGATIVE (NEGATIVE); CANNABINOIDS URINE NEGATIVE (NEGATIVE); COCAINE METABOLITE URINE NEGATIVE (NEGATIVE); METHADONE URINE NEGATIVE (NEGATIVE); OPIATES URINE NEGATIVE (NEGATIVE); PHENCYCLIDINE URINE NEGATIVE (NEGATIVE)
[2021-12-23 16:40] LABS: CK-MB VALUE MASS 2.9 NG/ML (<3.6); MB/CK RELATIVE INDEX 1.84 (< OR =4)
[2021-12-23 17:18] LABS: ACETONE/KETONE 1.45 MG/DL (<2.81); ALBUMIN 4.1 GM/DL (3.2-5.2); BILIRUBIN,DIRECT 0.4 MG/DL (0.0-0.2); BILIRUBIN,TOTAL 0.9 MG/DL (0.2-1.0); CALCIUM LEVEL 9.2 MG/DL (8.5-10.1); CREATININE FOR GFR 1.83 MG/DL (0.70-1.30); ETHYL ALCOHOL (ETHANOL) 0.126 % (0.000-0.010); GLOMERULAR FILTRATION RATE 42.6 (>60); MAGNESIUM LEVEL 2.5 MG/DL (1.8-2.4); POTASSIUM SERUM 2.2 MEQ/L (3.5-5.1); TOTAL PROTEIN 7.4 GM/DL (6.4-8.2)
[2021-12-23] MEDS ORDERED: KCL 10MEQ/100ML SWI (KRUN) 10 MEQ in IV 1 EA IV ONE (17:20)
[2021-12-23] MEDS ORDERED: POTASSIUM CHLORIDE 10MEQ SR TABLET PO ONE ×2 (17:20→20:20)
[2021-12-23 17:47] LABS: OSMOLALITY URINE 472 MOSM/KG (50-1400)
[2021-12-23 18:03] LABS: THYROID STIMULATING HORMONE 0.408 uIU/ML (0.358-3.740)
[2021-12-23] MEDS ORDERED: INSU100I36 SC (18:04)
[2021-12-23] MEDS ORDERED: LOPR1TAB6 PO (18:04)
[2021-12-23] MEDS ORDERED: INSU100V12 SC (18:04)
[2021-12-23] MEDS ORDERED: FERR325T3 PO (18:04)
[2021-12-23 18:05] LABS: SODIUM,RANDOM URINE < 10 MEQ/L
[2021-12-23] MEDS ORDERED: LORazepam 2 MG TAB PO PRN (18:05)
[2021-12-23] MEDS ORDERED: GLUCOSE 4GM CHEW TABLET PO PRN (18:05)
[2021-12-23] MEDS ORDERED: ACETAMINOPHEN TAB 650MG DOSE (2X325MG) PO PRN (18:05)
[2021-12-23] MEDS ORDERED: GLUCAGON INJ 1MG VIAL SC PRN (18:05)
[2021-12-23] MEDS ORDERED: HOME MED LIST COMPLETE! XX SCH (18:05)
[2021-12-23 20:13] LABS: CALCIUM LEVEL 8.1 MG/DL (8.5-10.1); CREATININE FOR GFR 1.42 MG/DL (0.70-1.30); GLOMERULAR FILTRATION RATE 57.1 (>60); POTASSIUM SERUM 2.3 MEQ/L (3.5-5.1)
[2021-12-23] MEDS: OMEPRAZOLE 20MG CAP PO SCH (20:40)
[2021-12-23] MEDS: GABAPENTIN 300 MG CAP PO SCH (20:41)
[2021-12-23] MEDS: THIAMINE 100 MG TAB PO SCH (20:41)
[2021-12-23] MEDS: METOPROLOL TART 50 MG TAB PO SCH (20:46)
[2021-12-23] MEDS ORDERED: LEVEMIR (INSULIN DETEMIR) 1 UNITS/0.01ML SC SCH (21:00)
[2021-12-23] MEDS: HumaLOG INSULIN (NovoLOG) PER UNIT SC SCH (21:45)
[2021-12-23 21:49] LABS: INR 0.82; PARTIAL THROMBOPLASTIN TIME 25.9 SECONDS (25.9-37.0); PROTHROMBIN TIME 11.7 SECONDS (12.7-14.5)
[2021-12-23 21:58] VITALS: BP 116/63
[2021-12-23 22:00] VITALS: BP 116/63
[2021-12-23] MEDS: APIXABAN 5 MG TAB (ELIQUIS) PO SCH (22:17)
[2021-12-23] MEDS ORDERED: KCL 20MEQ in NS 1000ML 1,000 ML IV SCH (23:00)
[2021-12-24] VITALS (9 sets, daily range): BP systolic 114–123; BP diastolic 56–88
[2021-12-24] MEDS: DEXTROSE 50% 50 ML SYRINGE IV PRN ×2 (00:07→04:55)
[2021-12-24 00:54] LABS: BLOOD UREA NITROGEN 25 MG/DL (7-18); CALCIUM LEVEL 8.2 MG/DL (8.5-10.1); CARBON DIOXIDE LEVEL 34 MEQ/L (21-32); CHLORIDE LEVEL 80 MEQ/L (98-107); CREATININE FOR GFR 1.14 MG/DL (0.70-1.30); GLOMERULAR FILTRATION RATE > 60.0 (>60); GLUCOSE, FASTING 33 MG/DL (70-100); POTASSIUM SERUM 3.7 MEQ/L (3.5-5.1); SODIUM LEVEL 122 MEQ/L (136-145)
[2021-12-24 04:02] LABS: HEMATOCRIT 41.9 % (42.0-52.0); MEAN CORPUSCULAR HEMOGLOBIN 30.9 pg (27.0-33.0); MEAN CORPUSCULAR VOLUME 85.7 fl (80.0-96.0); PLATELET COUNT, AUTOMATED 108 10^3/uL (150-450); RED BLOOD COUNT 4.89 10^6/uL (4.30-6.10); WHITE BLOOD COUNT 13.1 10^3/uL (4.0-10.0)
[2021-12-24 04:07] LABS: HEMOGLOBIN 15.1 g/dl (13.5-17.5)
[2021-12-24 04:53] LABS: BLOOD UREA NITROGEN 22 MG/DL (7-18); CARBON DIOXIDE LEVEL 35 MEQ/L (21-32); CHLORIDE LEVEL 82 MEQ/L (98-107); CREATININE FOR GFR 0.89 MG/DL (0.70-1.30); GLOMERULAR FILTRATION RATE > 60.0 (>60); GLUCOSE, FASTING 44 MG/DL (70-100); MAGNESIUM LEVEL 1.9 MG/DL (1.8-2.4); POTASSIUM SERUM 2.8 MEQ/L (3.5-5.1); SODIUM LEVEL 126 MEQ/L (136-145)
[2021-12-24] MEDS ORDERED: POTASSIUM CHLORIDE 10MEQ SR TABLET PO ONE ×2 (05:15→14:15)
[2021-12-24] MEDS: HumaLOG INSULIN (NovoLOG) PER UNIT SC SCH ×4 (07:30→20:23)
[2021-12-24 08:12] LABS: OSMOLALITY URINE 324 MOSM/KG (50-1400)
[2021-12-24 08:29] LABS: SODIUM,RANDOM URINE 34 MEQ/L
[2021-12-24] MEDS: ATORVASTATIN 20 MG TAB PO SCH (08:47)
[2021-12-24] MEDS: APIXABAN 5 MG TAB (ELIQUIS) PO SCH ×2 (08:47→20:21)
[2021-12-24] MEDS: GABAPENTIN 300 MG CAP PO SCH ×3 (08:48→20:21)
[2021-12-24] MEDS: MULTIVITAMINS/MINERALS THERAP 1 TAB PO SCH (08:48)
[2021-12-24] MEDS: OMEPRAZOLE 20MG CAP PO SCH ×2 (08:48→20:21)
[2021-12-24] MEDS: FERROUS SULFATE 325MG TAB PO SCH (08:49)
[2021-12-24] MEDS: ASPIRIN 81MG ENTERIC TABLET PO SCH (08:49)
[2021-12-24] MEDS: FOLIC ACID 1 MG TAB PO SCH (08:49)
[2021-12-24] MEDS: NICOTINE 21MG/24HR 1 EA TRANSDERMAL TD SCH (08:50)
[2021-12-24] MEDS: METOPROLOL TART 50 MG TAB PO SCH ×2 (08:50→20:22)
[2021-12-24] MEDS ORDERED: LEVEMIR (INSULIN DETEMIR) 1 UNITS/0.01ML SC SCH ×2 (09:00→21:00)
[2021-12-24 09:06] LABS: BLOOD UREA NITROGEN 19 MG/DL (7-18); CALCIUM LEVEL 8.3 MG/DL (8.5-10.1); CARBON DIOXIDE LEVEL 34 MEQ/L (21-32); CHLORIDE LEVEL 82 MEQ/L (98-107); CREATININE FOR GFR 0.95 MG/DL (0.70-1.30); GLOMERULAR FILTRATION RATE > 60.0 (>60); GLUCOSE, FASTING 126 MG/DL (70-100); POTASSIUM SERUM 2.8 MEQ/L (3.5-5.1); SODIUM LEVEL 124 MEQ/L (136-145)
[2021-12-24] MEDS: KCL 40MEQ IN D5/NS 1000ML 1,000 ML IV SCH (09:42)
[2021-12-24] MEDS: THIAMINE 100 MG TAB PO SCH ×2 (09:42→20:22)
[2021-12-24] MEDS ORDERED: POTASSIUM CHLORIDE INJ 40 MEQ in D5W 1,000 ML IV SCH (10:00)
[2021-12-24 13:48] LABS: BLOOD UREA NITROGEN 20 MG/DL (7-18); CALCIUM LEVEL 7.9 MG/DL (8.5-10.1); CARBON DIOXIDE LEVEL 34 MEQ/L (21-32); CHLORIDE LEVEL 90 MEQ/L (98-107); CREATININE FOR GFR 1.33 MG/DL (0.70-1.30); FERRITIN 603 NG/ML (26-388); GLOMERULAR FILTRATION RATE > 60.0 (>60); GLUCOSE, FASTING 206 MG/DL (70-100); IRON (FE) 184 UG/DL (65-175); PERCENT SATURATION 95.3 % (19.7-50.0); POTASSIUM SERUM 3.1 MEQ/L (3.5-5.1); SODIUM LEVEL 130 MEQ/L (136-145); TOTAL IRON BINDING CAPACITY 193 UG/DL (250-450)
[2021-12-24 13:55] LABS: FOLATE > 24.0 NG/ML (>5.4)
[2021-12-24 18:28] LABS: BLOOD UREA NITROGEN 19 MG/DL (7-18); CALCIUM LEVEL 7.7 MG/DL (8.5-10.1); CARBON DIOXIDE LEVEL 26 MEQ/L (21-32); CHLORIDE LEVEL 96 MEQ/L (98-107); GLOMERULAR FILTRATION RATE > 60.0 (>60); GLUCOSE, FASTING 238 MG/DL (70-100); POTASSIUM SERUM 3.9 MEQ/L (3.5-5.1); SODIUM LEVEL 128 MEQ/L (136-145)
[2021-12-25] VITALS (10 sets, daily range): BP systolic 116–132; BP diastolic 66–93
[2021-12-25 00:35] LABS: BLOOD UREA NITROGEN 16 MG/DL (7-18); CALCIUM LEVEL 7.4 MG/DL (8.5-10.1); CARBON DIOXIDE LEVEL 26 MEQ/L (21-32); CHLORIDE LEVEL 100 MEQ/L (98-107); CREATININE FOR GFR 1.29 MG/DL (0.70-1.30); GLOMERULAR FILTRATION RATE > 60.0 (>60); GLUCOSE, FASTING 352 MG/DL (70-100); POTASSIUM SERUM 3.5 MEQ/L (3.5-5.1); SODIUM LEVEL 131 MEQ/L (136-145)
[2021-12-25] MEDS: KCL 40MEQ IN D5/NS 1000ML 1,000 ML IV SCH (02:48)
[2021-12-25 06:22] LABS: MEAN CORPUSCULAR HEMOGLOBIN 30.5 pg (27.0-33.0); MEAN CORPUSCULAR HGB CONC 34.1 g/dl (32.0-36.5); MEAN CORPUSCULAR VOLUME 89.3 fl (80.0-96.0); RED BLOOD COUNT 4.59 10^6/uL (4.30-6.10); WHITE BLOOD COUNT 6.5 10^3/uL (4.0-10.0)
[2021-12-25 06:23] LABS: PLATELET COUNT, AUTOMATED 80 10^3/uL (150-450)
[2021-12-25 06:40] LABS: BLOOD UREA NITROGEN 13 MG/DL (7-18); CALCIUM LEVEL 7.7 MG/DL (8.5-10.1); CARBON DIOXIDE LEVEL 27 MEQ/L (21-32); CHLORIDE LEVEL 102 MEQ/L (98-107); CREATININE FOR GFR 1.05 MG/DL (0.70-1.30); GLOMERULAR FILTRATION RATE > 60.0 (>60); GLUCOSE, FASTING 330 MG/DL (70-100); MAGNESIUM LEVEL 2.1 MG/DL (1.8-2.4); POTASSIUM SERUM 3.7 MEQ/L (3.5-5.1); SODIUM LEVEL 133 MEQ/L (136-145)
[2021-12-25] MEDS ORDERED: D5W 1000ML IV ONE (08:20)
[2021-12-25] MEDS: HumaLOG INSULIN (NovoLOG) PER UNIT SC SCH ×4 (08:22→21:08)
[2021-12-25] MEDS: APIXABAN 5 MG TAB (ELIQUIS) PO SCH ×2 (08:23→21:09)
[2021-12-25] MEDS: OMEPRAZOLE 20MG CAP PO SCH ×2 (08:23→21:09)
[2021-12-25] MEDS: GABAPENTIN 300 MG CAP PO SCH ×3 (08:23→21:09)
[2021-12-25] MEDS: THIAMINE 100 MG TAB PO SCH ×2 (08:23→21:09)
[2021-12-25] MEDS: MULTIVITAMINS/MINERALS THERAP 1 TAB PO SCH (08:23)
[2021-12-25] MEDS: ASPIRIN 81MG ENTERIC TABLET PO SCH (08:24)
[2021-12-25] MEDS: FERROUS SULFATE 325MG TAB PO SCH (08:24)
[2021-12-25] MEDS: ATORVASTATIN 20 MG TAB PO SCH (08:24)
[2021-12-25] MEDS: FOLIC ACID 1 MG TAB PO SCH (08:24)
[2021-12-25] MEDS: NICOTINE 21MG/24HR 1 EA TRANSDERMAL TD SCH (08:25)
[2021-12-25] MEDS: METOPROLOL TART 50 MG TAB PO SCH ×2 (08:25→21:09)
[2021-12-25] MEDS ORDERED: DESMOPRESSIN ACETATE 2 MCG in NS 50 ML IV ONE (10:00)
[2021-12-25] MEDS: LEVEMIR (INSULIN DETEMIR) 1 UNITS/0.01ML SC SCH ×2 (11:09→21:08)
[2021-12-25] MEDS: SUCRALFATE SUSP 1GM/10ML UD PO SCH ×3 (12:07→23:53)
[2021-12-25 13:18] LABS: BLOOD UREA NITROGEN 11 MG/DL (7-18); CALCIUM LEVEL 8.2 MG/DL (8.5-10.1); CARBON DIOXIDE LEVEL 25 MEQ/L (21-32); CHLORIDE LEVEL 103 MEQ/L (98-107); CREATININE FOR GFR 0.96 MG/DL (0.70-1.30); GLOMERULAR FILTRATION RATE > 60.0 (>60); GLUCOSE, FASTING 229 MG/DL (70-100); POTASSIUM SERUM 3.6 MEQ/L (3.5-5.1); SODIUM LEVEL 132 MEQ/L (136-145)
[2021-12-25 18:29] LABS: BLOOD UREA NITROGEN 10 MG/DL (7-18); CARBON DIOXIDE LEVEL 22 MEQ/L (21-32); CHLORIDE LEVEL 104 MEQ/L (98-107); CREATININE FOR GFR 0.96 MG/DL (0.70-1.30); GLOMERULAR FILTRATION RATE > 60.0 (>60); GLUCOSE, FASTING 245 MG/DL (70-100); POTASSIUM SERUM 3.7 MEQ/L (3.5-5.1); SODIUM LEVEL 131 MEQ/L (136-145)
[2021-12-26 00:22] LABS: BLOOD UREA NITROGEN 9 MG/DL (7-18); CALCIUM LEVEL 7.4 MG/DL (8.5-10.1); CARBON DIOXIDE LEVEL 24 MEQ/L (21-32); CHLORIDE LEVEL 105 MEQ/L (98-107); CREATININE FOR GFR 0.95 MG/DL (0.70-1.30); GLOMERULAR FILTRATION RATE > 60.0 (>60); GLUCOSE, FASTING 368 MG/DL (70-100); POTASSIUM SERUM 3.8 MEQ/L (3.5-5.1); SODIUM LEVEL 132 MEQ/L (136-145)
[2021-12-26 05:34] LABS: HEMATOCRIT 39.3 % (42.0-52.0); HEMOGLOBIN 13.4 g/dl (13.5-17.5); MEAN CORPUSCULAR HEMOGLOBIN 30.3 pg (27.0-33.0); MEAN CORPUSCULAR HGB CONC 34.1 g/dl (32.0-36.5); MEAN CORPUSCULAR VOLUME 88.9 fl (80.0-96.0); RED BLOOD COUNT 4.42 10^6/uL (4.30-6.10)
[2021-12-26 05:35] LABS: PLATELET COUNT, AUTOMATED 96 10^3/uL (150-450)
[2021-12-26 05:50] LABS: MAGNESIUM LEVEL 2.1 MG/DL (1.8-2.4)
[2021-12-26] MEDS: SUCRALFATE SUSP 1GM/10ML UD PO SCH ×2 (05:59→12:38)
[2021-12-26 06:00] VITALS: BP 112/74
[2021-12-26 08:00] VITALS: BP 143/87
[2021-12-26] MEDS: LEVEMIR (INSULIN DETEMIR) 1 UNITS/0.01ML SC SCH (08:06)
[2021-12-26] MEDS: HumaLOG INSULIN (NovoLOG) PER UNIT SC SCH ×2 (08:06→12:38)
[2021-12-26] MEDS: NICOTINE 21MG/24HR 1 EA TRANSDERMAL TD SCH (08:06)
[2021-12-26] MEDS: ATORVASTATIN 20 MG TAB PO SCH (08:07)
[2021-12-26] MEDS: GABAPENTIN 300 MG CAP PO SCH (08:07)
[2021-12-26] MEDS: MULTIVITAMINS/MINERALS THERAP 1 TAB PO SCH (08:07)
[2021-12-26] MEDS: OMEPRAZOLE 20MG CAP PO SCH (08:07)
[2021-12-26] MEDS: THIAMINE 100 MG TAB PO SCH (08:07)
[2021-12-26] MEDS: APIXABAN 5 MG TAB (ELIQUIS) PO SCH (08:07)
[2021-12-26 08:08] VITALS: BP 143/87
[2021-12-26] MEDS: FOLIC ACID 1 MG TAB PO SCH (08:08)
[2021-12-26] MEDS: FERROUS SULFATE 325MG TAB PO SCH (08:08)
[2021-12-26] MEDS: METOPROLOL TART 50 MG TAB PO SCH (08:08)
[2021-12-26 09:31] LABS: BLOOD UREA NITROGEN 7 MG/DL (7-18); CALCIUM LEVEL 8.2 MG/DL (8.5-10.1); CARBON DIOXIDE LEVEL 21 MEQ/L (21-32); CHLORIDE LEVEL 107 MEQ/L (98-107); CREATININE FOR GFR 0.74 MG/DL (0.70-1.30); GLOMERULAR FILTRATION RATE > 60.0 (>60); GLUCOSE, FASTING 237 MG/DL (70-100); POTASSIUM SERUM 3.7 MEQ/L (3.5-5.1); SODIUM LEVEL 136 MEQ/L (136-145)
[2021-12-26] MEDS ORDERED: THIA100TA PO (11:04)
[2021-12-26] MEDS ORDERED: ELIQ5TAB PO (11:10)
== END 2021-12-26 13:29 | disposition home health service (06) | DRG 425 ==
LOC: M ED 14:11 → M ED INP 18:02 → ENRESERV 21:03 → M PCU 21:43
PROVIDERS: ADMIT Family Medicine; ATTEND Internal Medicine Nephrology
DX: E87.1 Hypo-osmolality and hyponatremia (principal); N17.9 Acute kidney failure, unspecified; E87.3 Alkalosis; K86.2 Cyst of pancreas; E11.649 Type 2 diabetes mellitus with hypoglycemia without coma; D69.59 Other secondary thrombocytopenia; E11.65 Type 2 diabetes mellitus with hyperglycemia; K86.0 Alcohol-induced chronic pancreatitis; I48.0 Paroxysmal atrial fibrillation; E87.6 Hypokalemia; R42 Dizziness and giddiness; F10.129 Alcohol abuse with intoxication, unspecified; I10 Essential (primary) hypertension; K21.00 Gastro-esophageal reflux disease with esophagitis, without bleeding; B00.9 Herpesviral infection, unspecified; F17.210 Nicotine dependence, cigarettes, uncomplicated; D50.9 Iron deficiency anemia, unspecified; K52.9 Noninfective gastroenteritis and colitis, unspecified; Z79.4 Long term (current) use of insulin; Z79.899 Other long term (current) drug therapy; Z79.82 Long term (current) use of aspirin

== ENCOUNTER 2022-02-25 07:38 | Emergency (ER) | payer OTHER ==
[~2022-02-25] VITALS: Ht 175.3 cm; Wt 77.0 kg
[~2022-02-25 07:38] MED LIST changes: +ELIQ5TAB PO; +FERR325T3 PO; +INSU100I36 SC; +INSU100V12 SC; +LOPR1TAB6 PO
[2022-02-25 08:32] LABS: BLOOD UREA NITROGEN 8 MG/DL (7-18); CALCIUM LEVEL 8.8 MG/DL (8.5-10.1); CARBON DIOXIDE LEVEL 17 MEQ/L (21-32); CHLORIDE LEVEL 111 MEQ/L (98-107); CREATININE FOR GFR 1.04 MG/DL (0.70-1.30); GLOMERULAR FILTRATION RATE > 60.0 (>60); GLUCOSE, FASTING 56 MG/DL (70-100); SODIUM LEVEL 140 MEQ/L (136-145)
[2022-02-25 09:45] VITALS: BP 120/79
== END 2022-02-25 09:54 | disposition left against medical advice (07) ==
LOC: EDBD 07:38 → M ED 07:38
DX: E11.649 Type 2 diabetes mellitus with hypoglycemia without coma (principal); I10 Essential (primary) hypertension; K21.9 Gastro-esophageal reflux disease without esophagitis; I48.91 Unspecified atrial fibrillation; K86.1 Other chronic pancreatitis; Z79.899 Other long term (current) drug therapy; Z79.4 Long term (current) use of insulin; Z79.01 Long term (current) use of anticoagulants; F17.200 Nicotine dependence, unspecified, uncomplicated

== ENCOUNTER 2022-07-02 09:40 | Emergency (ER) | payer OTHER ==
[~2022-07-02] VITALS: Ht 175.3 cm; Wt 79.0 kg
[2022-07-02 09:41] VITALS: BP 115/74
== END 2022-07-02 10:48 | disposition left against medical advice (07) ==
LOC: M ED 09:40
DX: Z53.21 Procedure and treatment not carried out due to patient leaving prior to being seen by health care provider (principal)

== ENCOUNTER 2022-07-02 13:28 | Emergency (ER) | payer OTHER ==
[~2022-07-02] VITALS: Ht 175.3 cm; Wt 79.6 kg
[2022-07-02 17:02] LABS: BASO % 0.4 % (0.0-1.0); EOS % 0.4 % (0.0-3.0); HEMATOCRIT 43.3 % (42.0-52.0); LYMPH # 1.9 10^3/uL (1.5-5.0); LYMPH % 22.6 % (24.0-44.0); MEAN CORPUSCULAR HEMOGLOBIN 32.8 pg (27.0-33.0); MEAN CORPUSCULAR HGB CONC 32.3 g/dl (32.0-36.5); MEAN CORPUSCULAR VOLUME 101.4 fl (80.0-96.0); MONO # 0.9 10^3/uL (0.0-0.8); MONO % 10.9 % (2.0-8.0); NEUTROPHILS # 5.5 10^3/uL (1.5-8.5); NEUTROPHILS % 65.3 % (36.0-66.0); PLATELET COUNT, AUTOMATED 217 10^3/uL (150-450); RED BLOOD COUNT 4.27 10^6/uL (4.30-6.10); WHITE BLOOD COUNT 8.5 10^3/uL (4.0-10.0)
[2022-07-02] MEDS ORDERED: LIDOCAINE 2% MDV 20ML VIAL SC ONE (18:05)
[2022-07-02 18:06] LABS: CK-MB VALUE MASS 2.9 NG/ML (<3.6); MB/CK RELATIVE INDEX 1.93 (< OR =4)
[2022-07-02] MEDS ORDERED: HumuLIN R (REGULAR) INSULIN (NovoLIN R) **100U/ML** PER UNIT IV ONE (18:35)
[2022-07-02 18:57] LABS: CALCIUM LEVEL 8.5 MG/DL (8.5-10.1); CREATININE FOR GFR 1.52 MG/DL (0.70-1.30); GLOMERULAR FILTRATION RATE 52.6 (>60); MAGNESIUM LEVEL 2.8 MG/DL (1.8-2.4); POTASSIUM SERUM 3.8 MEQ/L (3.5-5.1); THYROID STIMULATING HORMONE 0.913 uIU/ML (0.358-3.740)
[2022-07-02 19:21] VITALS: BP 120/83
== END 2022-07-02 19:32 | disposition home or self-care (01) ==
LOC: M ED 13:28
DX: I95.1 Orthostatic hypotension (principal); R55 Syncope and collapse; S01.511A Laceration without foreign body of lip, initial encounter; S00.33XA Contusion of nose, initial encounter; W18.30XA Fall on same level, unspecified, initial encounter; K02.9 Dental caries, unspecified; I48.91 Unspecified atrial fibrillation; E11.9 Type 2 diabetes mellitus without complications; I10 Essential (primary) hypertension; K21.9 Gastro-esophageal reflux disease without esophagitis; E78.5 Hyperlipidemia, unspecified; Z79.4 Long term (current) use of insulin; Z79.899 Other long term (current) drug therapy
CPT/HCPCS: 12015; 70450; 70486; 71045; 80048; 82550; 82553; 83735; 84443; 85025; 87486; 87581; 87633; 87798; 93005; 99284; J1815

== ENCOUNTER → 2022-07-02 | Outpatient (REF) | payer OTHER ==
[~2022-07-02] MED LIST changes: +K-TA10TA2 PO
== END ==
LOC: M LAB REF 11:09
PROVIDERS: ATTEND Nurse Practitioner Family
DX: D50.9 Iron deficiency anemia, unspecified (principal); Z86.010 Personal history of colon polyps

== ENCOUNTER 2022-07-08 08:15 | Day surgery (SDC) | payer OTHER ==
[~2022-07-08] VITALS: Ht 175.3 cm; Wt 84.1 kg
[~2022-07-08 08:15] MED LIST changes: +NS 1,000 ML IV ONE
[2022-07-08] MEDS ORDERED: PHENYLephrine 500MCG 5ML (100MCG/ML) SYRINGE As Ordered ONE (09:10)
[2022-07-08] MEDS ORDERED: propofoL 200 MG/20 ML VIAL As Ordered ONE (09:10)
[2022-07-08] MEDS ORDERED: LIDOCAINE 2% 100MG/5ML SDV (FOR ANES.) As Ordered ONE (09:10)
[2022-07-08 09:50] VITALS: BP 99/65
== END 2022-07-08 10:25 | disposition home or self-care (01) ==
LOC: M OPP 08:15
PROVIDERS: ATTEND Internal Medicine Gastroenterology
DX: D50.9 Iron deficiency anemia, unspecified (principal); K21.00 Gastro-esophageal reflux disease with esophagitis, without bleeding; K29.70 Gastritis, unspecified, without bleeding; K44.9 Diaphragmatic hernia without obstruction or gangrene; K31.7 Polyp of stomach and duodenum; Z79.01 Long term (current) use of anticoagulants; Z79.02 Long term (current) use of antithrombotics/antiplatelets; Z79.4 Long term (current) use of insulin; Z79.899 Other long term (current) drug therapy; I10 Essential (primary) hypertension; E11.9 Type 2 diabetes mellitus without complications; F32.9 Major depressive disorder, single episode, unspecified; F41.9 Anxiety disorder, unspecified; F17.200 Nicotine dependence, unspecified, uncomplicated; I48.91 Unspecified atrial fibrillation; Z80.0 Family history of malignant neoplasm of digestive organs; Z80.3 Family history of malignant neoplasm of breast; Z80.6 Family history of leukemia; Z53.8 Procedure and treatment not carried out for other reasons
CPT/HCPCS: 43239; 45378; 87635; 88305; J2370

== ENCOUNTER → 2022-09-24 | Outpatient (CLI) | payer OTHER ==
[~2022-09-24] MED LIST changes: -NS 1,000 ML IV ONE
== END ==
LOC: M LABSMTC 11:20
PROVIDERS: ATTEND Anesthesiology
DX: Z01.812 Encounter for preprocedural laboratory examination (principal); Z20.822 Contact with and (suspected) exposure to COVID-19

== ENCOUNTER 2022-09-29 06:51 | Day surgery (SDC) | payer OTHER ==
[~2022-09-29] VITALS: Ht 175.3 cm; Wt 81.2 kg
[~2022-09-29 06:51] MED LIST changes: +NS 1,000 ML IV ONE
[2022-09-29] MEDS ORDERED: INSULIN LISPRO (NovoLOG) PER UNIT SC ONE ×2 (07:30→07:35)
[2022-09-29] MEDS ORDERED: propofoL 200 MG/20 ML VIAL As Ordered ONE ×2 (08:00→08:40)
[2022-09-29] MEDS ORDERED: LIDOCAINE 2% 100MG/5ML SDV (FOR ANES.) As Ordered ONE (08:00)
[2022-09-29 09:05] VITALS: BP 133/91
== END 2022-09-29 09:50 | disposition home or self-care (01) ==
LOC: M OPP 06:51
PROVIDERS: ATTEND Internal Medicine Gastroenterology
DX: Z12.11 Encounter for screening for malignant neoplasm of colon (principal); Z86.010 Personal history of colon polyps; Z80.0 Family history of malignant neoplasm of digestive organs; D12.6 Benign neoplasm of colon, unspecified; D37.4 Neoplasm of uncertain behavior of colon; K64.4 Residual hemorrhoidal skin tags; K64.8 Other hemorrhoids; K57.30 Diverticulosis of large intestine without perforation or abscess without bleeding; K56.690 Other partial intestinal obstruction; D50.9 Iron deficiency anemia, unspecified; Z79.01 Long term (current) use of anticoagulants; Z79.02 Long term (current) use of antithrombotics/antiplatelets; Z79.4 Long term (current) use of insulin; Z79.891 Long term (current) use of opiate analgesic; I48.91 Unspecified atrial fibrillation; E11.9 Type 2 diabetes mellitus without complications; I10 Essential (primary) hypertension; G57.83 Other specified mononeuropathies of bilateral lower limbs; F17.200 Nicotine dependence, unspecified, uncomplicated; Z86.69 Personal history of other diseases of the nervous system and sense organs
CPT/HCPCS: 45380; 45385; 88305; J1815

== ENCOUNTER 2022-10-20 17:11 | Inpatient (IN) | payer OTHER ==
[~2022-10-20] VITALS: Ht 175.3 cm; Wt 78.2 kg
[~2022-10-20 17:11] MED LIST changes: -NS 1,000 ML IV ONE
[2022-10-20 18:18] LABS: VENOUS BASE EXCESS -13.2 (-2.0-2.0); VENOUS HCO3 10.9 MEQ/L (23.0-27.0); VENOUS O2 SATURATION 94.7 % (60.0-80.0); VENOUS PARTIAL PRESSURE CO2 22.8 mmHg (38.0-50.0); VENOUS PH 7.297 UNITS (7.330-7.430); VENOUS STANDARD HCO3 14.5 MEQ/L; VENOUS TOTAL CO2 11.6 MEQ/L (24.0-28.0)
[2022-10-20 18:23] LABS: BASO % 0.3 % (0.0-1.0); EOS % 0.1 % (0.0-3.0); HEMATOCRIT 46.2 % (42.0-52.0); HEMOGLOBIN 15.4 g/dl (13.5-17.5); LYMPH # 1.6 10^3/uL (1.5-5.0); LYMPH % 14.1 % (24.0-44.0); MEAN CORPUSCULAR HEMOGLOBIN 31.9 pg (27.0-33.0); MEAN CORPUSCULAR HGB CONC 33.3 g/dl (32.0-36.5); MEAN CORPUSCULAR VOLUME 95.7 fl (80.0-96.0); MONO # 0.5 10^3/uL (0.0-0.8); MONO % 4.5 % (2.0-8.0); NEUTROPHILS # 9.1 10^3/uL (1.5-8.5); NEUTROPHILS % 80.6 % (36.0-66.0); PLATELET COUNT, AUTOMATED 234 10^3/uL (150-450); RED BLOOD COUNT 4.83 10^6/uL (4.30-6.10); WHITE BLOOD COUNT 11.3 10^3/uL (4.0-10.0)
[2022-10-20 18:43] LABS: HEMOGLOBIN A1c 9.6 % (4.0-6.0)
[2022-10-20 18:50] LABS: LIPASE 14 U/L (12-53)
[2022-10-20 18:55] LABS: ALBUMIN 3.8 G/DL (3.2-5.2); ALKALINE PHOSPHATASE 158 U/L (46-116); ALT/SGPT 44 U/L (7.0-40); AST/SGOT 44 U/L (<34); BILIRUBIN,DIRECT 0.2 MG/DL (<0.4); BILIRUBIN,TOTAL 0.5 MG/DL (0.3-1.2); TOTAL PROTEIN 7.5 G/DL (5.7-8.2)
[2022-10-20 19:03] LABS: RSV AMPLIFICATION NEGATIVE (NEGATIVE)
[2022-10-20 19:14] LABS: BLOOD UREA NITROGEN 12 MG/DL (9-23); CALCIUM LEVEL 9.4 MG/DL (8.5-10.1); CARBON DIOXIDE LEVEL 11 MMOL/L (20-31); CHLORIDE LEVEL 99 MMOL/L (98-107); CREATININE FOR GFR 1.08 MG/DL (0.70-1.30); GLOMERULAR FILTRATION RATE > 60.0 (>60); GLUCOSE, FASTING 177 MG/DL (60-100); POTASSIUM SERUM 3.3 MMOL/L (3.5-5.1); SODIUM LEVEL 135 MMOL/L (136-145)
[2022-10-20] MEDS ORDERED: NS 1,000 ML IV ONE ×2 (19:15→19:55)
[2022-10-20] MEDS ORDERED: INSULIN REGULAR IN 0.9 % NACL 100 UNIT in IV 1 EA IV SCH ×4 (19:15→19:55)
[2022-10-20] MEDS ORDERED: HumuLIN R (REGULAR) INSULIN (NovoLIN R) **100U/ML** PER UNIT IV ONE (19:15)
[2022-10-20] MEDS ORDERED: INSULIN IV RATE CHANGE DOCUMENTATION ML/HR XX SCH ×2 (19:15→19:55)
[2022-10-20 19:16] LABS: ACETONE/KETONE > 4.50 MMOL/L (0.02-0.27)
[2022-10-20] MEDS ORDERED: KCL 10MEQ/100ML SWI (KRUN) 10 MEQ in IV 1 EA IV ONE ×2 (19:20→19:55)
[2022-10-20] MEDS ORDERED: POTASSIUM CHLORIDE 10MEQ SR TABLET PO ONE (19:20)
[2022-10-20] MEDS ORDERED: ONDANSETRON 4MG 2ML VIAL IV ONE (19:20)
[2022-10-20 19:22] LABS: OSMOLALITY SERUM 317 MOSM/KG (275-295)
[2022-10-20] MEDS ORDERED: D5W/0.9% SODIUM CHLORIDE 1,000 ML IV SCH (19:55)
[2022-10-20] MEDS ORDERED: LEVALBUTEROL 1.25MG 0.5ML CONCENTRATE NEB NEB PRN (19:55)
[2022-10-20 21:00] VITALS: BP 127/74
[2022-10-20] MEDS ORDERED: HOME MED LIST COMPLETE! XX SCH (21:10)
[2022-10-20] MEDS ORDERED: DEXTROSE 50% 50ML SYRINGE As Ordered ONE (21:16)
[2022-10-20] MEDS ORDERED: DEXTROSE 50% 50ML SYRINGE IV STA (21:16)
[2022-10-20 21:30] VITALS: BP 137/66
[2022-10-20 22:00] VITALS: BP 122/78
[2022-10-20 22:37] VITALS: BP 144/83
[2022-10-20 23:00] VITALS: BP 142/88
[2022-10-20 23:31] LABS: BLOOD UREA NITROGEN 8 MG/DL (9-23); CARBON DIOXIDE LEVEL 18 MMOL/L (20-31); CHLORIDE LEVEL 103 MMOL/L (98-107); CREATININE FOR GFR 0.86 MG/DL (0.70-1.30); GLOMERULAR FILTRATION RATE > 60.0 (>60); GLUCOSE, FASTING 193 MG/DL (60-100); PHOSPHORUS LEVEL 2.3 MG/DL (2.5-4.9); POTASSIUM SERUM 3.6 MMOL/L (3.5-5.1); SODIUM LEVEL 134 MMOL/L (136-145)
[2022-10-20] MEDS ORDERED: NS 1,000 ML IV SCH (23:50)
[2022-10-21] VITALS (8 sets, daily range): BP systolic 114–148; BP diastolic 64–85
[2022-10-21] MEDS: PANTOPRAZOLE 40MG VIAL IV SCH ×3 (00:04→20:33)
[2022-10-21] MEDS ORDERED: DEXTROSE 50% 50ML SYRINGE IV PRN (00:20)
[2022-10-21] MEDS ORDERED: GLUCOSE 4GM CHEW TABLET PO PRN (00:20)
[2022-10-21] MEDS ORDERED: GLUCAGON INJ 1MG VIAL SC PRN (00:20)
[2022-10-21] MEDS: INSULIN LISPRO (NovoLOG) PER UNIT SC SCH ×5 (00:37→20:33)
[2022-10-21 01:06] LABS: HEMATOCRIT 36.6 % (42.0-52.0)
[2022-10-21 01:10] LABS: HEMOGLOBIN 12.1 g/dl (13.5-17.5)
[2022-10-21] MEDS ORDERED: NS 1,000 ML IV ONE (03:50)
[2022-10-21 04:53] LABS: HEMATOCRIT 33.6 % (42.0-52.0); HEMOGLOBIN 11.4 g/dl (13.5-17.5)
[2022-10-21 05:19] LABS: BLOOD UREA NITROGEN 11 MG/DL (9-23); CARBON DIOXIDE LEVEL 20 MMOL/L (20-31); CHLORIDE LEVEL 106 MMOL/L (98-107); CREATININE FOR GFR 0.88 MG/DL (0.70-1.30); GLOMERULAR FILTRATION RATE > 60.0 (>60); GLUCOSE, FASTING 137 MG/DL (60-100); PHOSPHORUS LEVEL 1.6 MG/DL (2.5-4.9); POTASSIUM SERUM 3.6 MMOL/L (3.5-5.1); SODIUM LEVEL 136 MMOL/L (136-145)
[2022-10-21] MEDS ORDERED: NS 500 ML IV ONE (06:35)
[2022-10-21] MEDS ORDERED: POTASSIUM PHOSPHATE INJ 15 MMOL in D5W 250 ML IV ONE (08:00)
[2022-10-21 09:31] LABS: INR 1.07; PROTHROMBIN TIME 14.1 SECONDS (12.5-14.5)
[2022-10-21 09:32] LABS: PARTIAL THROMBOPLASTIN TIME 24.5 SECONDS (24.8-34.2)
[2022-10-21] MEDS: GASTROGRAFIN SOLUTION 30ML PO SCH ×2 (09:41→09:42)
[2022-10-21] MEDS ORDERED: ISOVUE-370 76% 100ML VIAL As Ordered ONE (10:49)
[2022-10-21 12:06] LABS: HEMATOCRIT 38.4 % (42.0-52.0); HEMOGLOBIN 12.5 g/dl (13.5-17.5)
[2022-10-21] MEDS: LEVEMIR (INSULIN DETEMIR) 1 UNITS/0.01ML SC SCH ×2 (12:22→20:34)
[2022-10-21 18:35] LABS: HEMATOCRIT 34.7 % (42.0-52.0); HEMOGLOBIN 11.8 g/dl (13.5-17.5)
[2022-10-22 06:00] VITALS: BP 124/65
[2022-10-22] MEDS: INSULIN LISPRO (NovoLOG) PER UNIT SC SCH ×4 (08:47→21:07)
[2022-10-22] MEDS: PANTOPRAZOLE 40MG VIAL IV SCH ×2 (08:47→21:06)
[2022-10-22] MEDS: LEVEMIR (INSULIN DETEMIR) 1 UNITS/0.01ML SC SCH (08:47)
[2022-10-22 11:23] LABS: BASO % 0.4 % (0.0-1.0); EOS % 0.5 % (0.0-3.0); HEMATOCRIT 33.3 % (42.0-52.0); HEMOGLOBIN 11.3 g/dl (13.5-17.5); LYMPH # 1.1 10^3/uL (1.5-5.0); LYMPH % 20.1 % (24.0-44.0); MEAN CORPUSCULAR HEMOGLOBIN 32.4 pg (27.0-33.0); MEAN CORPUSCULAR HGB CONC 33.9 g/dl (32.0-36.5); MEAN CORPUSCULAR VOLUME 95.4 fl (80.0-96.0); MONO # 0.4 10^3/uL (0.0-0.8); MONO % 6.9 % (2.0-8.0); NEUTROPHILS # 3.9 10^3/uL (1.5-8.5); NEUTROPHILS % 71.7 % (36.0-66.0); PLATELET COUNT, AUTOMATED 125 10^3/uL (150-450); RED BLOOD COUNT 3.49 10^6/uL (4.30-6.10); WHITE BLOOD COUNT 5.5 10^3/uL (4.0-10.0)
[2022-10-22] MEDS ORDERED: LORazepam 0.5 MG TAB PO ONE (13:10)
[2022-10-22] MEDS ORDERED: LORazepam 0.5 MG TAB PO PRN (13:30)
[2022-10-22 14:00] VITALS: BP 135/89
[2022-10-22 14:29] LABS: ALBUMIN 2.4 G/DL (3.2-5.2); ALKALINE PHOSPHATASE 93 U/L (46-116); ALT/SGPT 24 U/L (7.0-40); AST/SGOT 21 U/L (<34); BILIRUBIN,TOTAL 0.3 MG/DL (0.3-1.2); BLOOD UREA NITROGEN 9 MG/DL (9-23); CALCIUM LEVEL 7.9 MG/DL (8.5-10.1); CARBON DIOXIDE LEVEL 21 MMOL/L (20-31); CHLORIDE LEVEL 107 MMOL/L (98-107); CREATININE FOR GFR 0.97 MG/DL (0.70-1.30); GLOMERULAR FILTRATION RATE > 60.0 (>60); GLUCOSE, FASTING 279 MG/DL (60-100); POTASSIUM SERUM 3.3 MMOL/L (3.5-5.1); SODIUM LEVEL 136 MMOL/L (136-145)
[2022-10-22] MEDS: CREON-24 CAPSULE PO SCH ×2 (14:32→18:00)
[2022-10-22] MEDS: FOLIC ACID 1MG TAB PO SCH (14:34)
[2022-10-22] MEDS: THIAMINE 100 MG TAB PO SCH (14:35)
[2022-10-22] MEDS: MULTIVITAMINS/MINERALS THERAP 1 TAB PO SCH (14:35)
[2022-10-22] MEDS: GABAPENTIN 300 MG CAP PO SCH ×2 (14:35→21:06)
[2022-10-22] MEDS ORDERED: RIVAROXABAN 10MG TAB (XARELTO) PO SCH (18:00)
[2022-10-22 20:00] VITALS: BP 133/90
[2022-10-22] MEDS ORDERED: LEVEMIR (INSULIN DETEMIR) 1 UNITS/0.01ML SC SCH (21:00)
[2022-10-22 21:05] LABS: TOTAL PROTEIN 4.7 G/DL (5.7-8.2)
[2022-10-22] MEDS: POTASSIUM CHLORIDE 10MEQ SR TABLET PO SCH (21:06)
[2022-10-23 06:00] VITALS: BP 131/90
[2022-10-23 06:25] LABS: BASO % 0.4 % (0.0-1.0); EOS % 0.8 % (0.0-3.0); HEMATOCRIT 35.8 % (42.0-52.0); HEMOGLOBIN 11.8 g/dl (13.5-17.5); LYMPH # 1.4 10^3/uL (1.5-5.0); LYMPH % 27.8 % (24.0-44.0); MEAN CORPUSCULAR HEMOGLOBIN 31.6 pg (27.0-33.0); MONO # 0.4 10^3/uL (0.0-0.8); MONO % 7.3 % (2.0-8.0); NEUTROPHILS # 3.1 10^3/uL (1.5-8.5); NEUTROPHILS % 63.3 % (36.0-66.0); PLATELET COUNT, AUTOMATED 117 10^3/uL (150-450); RED BLOOD COUNT 3.73 10^6/uL (4.30-6.10); WHITE BLOOD COUNT 4.9 10^3/uL (4.0-10.0)
[2022-10-23 06:57] LABS: ALBUMIN 2.7 G/DL (3.2-5.2); ALKALINE PHOSPHATASE 101 U/L (46-116); ALT/SGPT 24 U/L (7.0-40); AST/SGOT 18 U/L (<34); BILIRUBIN,TOTAL 0.2 MG/DL (0.3-1.2); BLOOD UREA NITROGEN 8 MG/DL (9-23); CALCIUM LEVEL 7.8 MG/DL (8.5-10.1); CARBON DIOXIDE LEVEL 21 MMOL/L (20-31); CHLORIDE LEVEL 105 MMOL/L (98-107); GLOMERULAR FILTRATION RATE > 60.0 (>60); GLUCOSE, FASTING 341 MG/DL (60-100); POTASSIUM SERUM 4.2 MMOL/L (3.5-5.1); SODIUM LEVEL 134 MMOL/L (136-145); TOTAL PROTEIN 5.2 G/DL (5.7-8.2)
[2022-10-23] MEDS: FOLIC ACID 1MG TAB PO SCH (08:27)
[2022-10-23] MEDS: CREON-24 CAPSULE PO SCH ×2 (08:27→13:41)
[2022-10-23] MEDS: INSULIN LISPRO (NovoLOG) PER UNIT SC SCH ×2 (08:27→13:43)
[2022-10-23] MEDS: POTASSIUM CHLORIDE 10MEQ SR TABLET PO SCH (08:27)
[2022-10-23] MEDS: GABAPENTIN 300 MG CAP PO SCH (08:27)
[2022-10-23] MEDS: MULTIVITAMINS/MINERALS THERAP 1 TAB PO SCH (08:27)
[2022-10-23] MEDS: THIAMINE 100 MG TAB PO SCH (08:28)
[2022-10-23] MEDS ORDERED: OMEPRAZOLE 20MG CAP PO SCH (09:00)
[2022-10-23] MEDS ORDERED: ATORVASTATIN 20 MG TAB PO SCH (09:00)
[2022-10-23] MEDS ORDERED: LEVEMIR (INSULIN DETEMIR) 1 UNITS/0.01ML SC SCH (09:00)
[2022-10-23] MEDS ORDERED: PANTOPRAZOLE 40MG TAB (PROTONIX) PO SCH (09:00)
[2022-10-23] MEDS ORDERED: DEXT4TAB83 PO (09:57)
[2022-10-23] MEDS ORDERED: INSU100I36 SC (09:57)
[2022-10-23] MEDS ORDERED: CREO24CA PO (09:57)
[2022-10-23] MEDS ORDERED: THIA100TA PO (09:57)
[2022-10-23] MEDS ORDERED: INSULIN LISPRO (NovoLOG) PER UNIT SC STA (10:28)
[2022-10-23] MEDS ORDERED: PANCCAP4 PO (13:19)
== END 2022-10-23 13:56 | disposition home or self-care (01) | DRG 420 ==
LOC: M ED 17:11 → M ED INP 19:54 → M ICU 22:29 → M MSPAV 10-21 21:21
PROVIDERS: ADMIT Internal Medicine; ATTEND Student in an Organized Health Care Education/Training Program
DX: E11.10 Type 2 diabetes mellitus with ketoacidosis without coma (principal); K86.1 Other chronic pancreatitis; I48.91 Unspecified atrial fibrillation; N28.1 Cyst of kidney, acquired; E83.39 Other disorders of phosphorus metabolism; D64.9 Anemia, unspecified; F17.210 Nicotine dependence, cigarettes, uncomplicated; E78.5 Hyperlipidemia, unspecified; K92.1 Melena; K21.9 Gastro-esophageal reflux disease without esophagitis; K29.50 Unspecified chronic gastritis without bleeding; Z79.01 Long term (current) use of anticoagulants; Z79.4 Long term (current) use of insulin; Z79.899 Other long term (current) drug therapy; Z20.822 Contact with and (suspected) exposure to COVID-19; E11.42 Type 2 diabetes mellitus with diabetic polyneuropathy; E11.641 Type 2 diabetes mellitus with hypoglycemia with coma

== ENCOUNTER 2023-01-30 13:50 | Emergency (ER) | payer OTHER ==
[~2023-01-30] VITALS: Ht 175.3 cm; Wt 77.3 kg
[~2023-01-30 13:50] MED LIST changes: +CREO24CA PO; +DEXT4TAB83 PO; +PANCCAP4 PO
[2023-01-30] MEDS ORDERED: NS 1,000 ML IV ONE ×3 (14:05→15:00)
[2023-01-30 14:26] LABS: VENOUS BASE EXCESS -4.9 (-2.0-2.0); VENOUS O2 SATURATION 77.3 % (60.0-80.0); VENOUS PARTIAL PRESSURE O2 47.2 mmHg (30.0-50.0); VENOUS PH 7.317 UNITS (7.330-7.430); VENOUS TOTAL CO2 22.3 MMOL/L (24.0-28.0)
[2023-01-30 14:37] LABS: BASO % 0.3 % (0.0-1.0); EOS % 0.5 % (0.0-3.0); HEMATOCRIT 47.1 % (42.0-52.0); LYMPH # 2.5 10^3/uL (1.5-5.0); LYMPH % 41.6 % (24.0-44.0); MEAN CORPUSCULAR HEMOGLOBIN 31.6 pg (27.0-33.0); MEAN CORPUSCULAR VOLUME 93.1 fl (80.0-96.0); MONO # 0.3 10^3/uL (0.0-0.8); MONO % 5.4 % (2.0-8.0); NEUTROPHILS # 3.1 10^3/uL (1.5-8.5); NEUTROPHILS % 51.9 % (36.0-66.0); PLATELET COUNT, AUTOMATED 275 10^3/uL (150-450); RED BLOOD COUNT 5.06 10^6/uL (4.30-6.10); WHITE BLOOD COUNT 5.9 10^3/uL (4.0-10.0)
[2023-01-30] MEDS ORDERED: HumuLIN R (REGULAR) INSULIN (NovoLIN R) **100U/ML** PER UNIT IV ONE (14:55)
[2023-01-30 15:12] LABS: ALBUMIN 2.6 G/DL (3.2-5.2); ALKALINE PHOSPHATASE 253 U/L (46-116); ALT/SGPT 69 U/L (7.0-40); AST/SGOT 72 U/L (<34); BILIRUBIN,DIRECT 0.1 MG/DL (<0.4); BILIRUBIN,TOTAL 0.3 MG/DL (0.3-1.2); BLOOD UREA NITROGEN 10 MG/DL (9-23); CARBON DIOXIDE LEVEL 21 MMOL/L (20-31); CHLORIDE LEVEL 101 MMOL/L (98-107); CREATININE FOR GFR 0.97 MG/DL (0.70-1.30); GLOMERULAR FILTRATION RATE > 60.0 (>60); GLUCOSE, FASTING 389 MG/DL (60-100); POTASSIUM SERUM 4.6 MMOL/L (3.5-5.1); SODIUM LEVEL 136 MMOL/L (136-145); TOTAL PROTEIN 6.6 G/DL (5.7-8.2)
[2023-01-30 15:13] LABS: THYROID STIMULATING HORMONE 2.009 uIU/ML (0.55-4.78)
[2023-01-30 15:19] LABS: OSMOLALITY SERUM 398 MOSM/KG (275-295)
[2023-01-30 15:24] LABS: ETHYL ALCOHOL (ETHANOL) 0.406 % (0.000-0.010)
[2023-01-30] MEDS ORDERED: THIAMINE 200MG 2ML VIAL IM ONE (16:00)
[2023-01-30 17:46] VITALS: BP 128/88
[2023-01-30 20:08] LABS: MAGNESIUM LEVEL 1.6 MG/DL (1.8-2.4)
[2023-01-30 20:18] LABS: ETHYL ALCOHOL (ETHANOL) 0.311 % (0.000-0.010)
== END 2023-01-30 19:43 | disposition left against medical advice (07) ==
LOC: EDBD 13:50 → M ED 13:50
DX: F10.129 Alcohol abuse with intoxication, unspecified (principal); E11.65 Type 2 diabetes mellitus with hyperglycemia; K29.70 Gastritis, unspecified, without bleeding; F17.200 Nicotine dependence, unspecified, uncomplicated; Z79.899 Other long term (current) drug therapy
CPT/HCPCS: 36415; 36600; 70450; 71045; 80047; 80048; 80076; 82077; 82140; 82803; 83605; 83735; 83930; 84443; 85025; 87040; 87486; 87581; 87633; 87798; 93005; 93041; 94760; 96372; 96374; 99285; J1815; J3411